=== PATIENT | female | born 1945 | race Caucasian/White ===

== ENCOUNTER 2020-10-06 16:39 | Emergency (ER) | payer MEDICARE, SELFPAY ==
--- NOTE | 2020-10-06 16:44 | ED.SOB ---
HPI - SOB/Dyspnea General Chief Complaint: Upper Respiratory Symptoms Stated Complaint: COPD EXACERBATION Time Seen by Provider: 10/06/20 16:41 Source: patient Mode of arrival: EMS Limitations: no limitations History of Present Illness HPI Narrative: Patient ex-smoker history of COPD was doing okay until yesterday today while walking to the mall fell short winded wheezing Was saturating 96% at room air was given DuoNeb treatment by EMT patient is still feeling tachypneic and short of breath wheezing otherwise no fever no chest pain no leg swelling no exposure to COVID MD elicited complaint: shortness of breath and cough (Dry) Pertinent past history: COPD Onset (ago): minute(s) Context: recent illness Timing: constant Severity: moderate Exacerbating factors: exertion Relieving factors: bronchodilators Known history of: COPD Associated symptoms: denies other symptoms Treatment prior to arrival: bronchodilator Related Data Home oxygen amount: none Previous Rx's Medication Instructions Recorded prednisone 40 mg PO DAILY #10 tab 10/06/20 Allergies Allergy/AdvReac Type Severity Reaction Status Date / Time latex [LATEX] Allergy Unknown RASH Unverified 06/03/20 15:31 Review of Systems Review of Systems: Constitutional : No Weight loss, No Fever, No Chills ENT/Mouth : No sore throat, No Rhinorrhea Eyes: No Eye Pain, No Swelling Cardiovascular : No Chest Pain, no palpitations Respiratory : ++Cough, No Sputum, ++ shortness of breath Gastrointestinal : no Nausea, No Vomiting, No Diarrhea, No abdominal Pain, no black stools Genitourinary : No Dysuria, No Urinary Frequency Musculoskeletal : No joint pain, No Myalgias, No Joint Swelling Skin : No Skin Lesions, No rash Neuro : No Weakness, No Numbness, No Dizziness, No Headache Psych : No Anxiety/Panic, No Depression Heme/Lymph: No Bruising, No Lymphadenopathy Endocrine : No Polyuria, No Polydipsia All other systems reviewed and are negative PMFSH Past Medical History Medical History COPD (chronic obstructive pulmonary disease) Hypercholesteremia Hypertension Social History Social History Smoking Status: Former smoker Smoked in Last 30 Days: No Use of substances other than those prescribed or required for medical reasons: No Advance Directives: No Advance Directives Information Provided: No Physical Exam Vital Signs: Vital Signs: Last Vital Signs Temp 98.3 F 10/06/20 16:48 Pulse 92 10/06/20 18:31 Resp 18 10/06/20 16:48 BP 150/109 H 10/06/20 16:48 Pulse Ox 99 10/06/20 17:18 Body Mass Index 22.8 Appearance: Alert. Oriented X3. No acute distress. Eyes: Pupils equal, round and reactive to light. ENT: Pharynx normal. Neck: Normal inspection. Neck supple. CVS: Normal heart rate and rhythm. Pulses normal. Respiratory: Tachypnea prolonged expiration bilateral wheezing and rhonchi press no rales Abdomen: Soft and nontender. Bowel sounds are present, no mass palpable, no CVA tenderness Skin: Skin warm and dry. Normal skin color. Normal skin turgor. Extremities: No lower extremity edema. Neuro: Oriented X 3. No motor deficit. No sensory deficit. Course Course Course Narrative: Patient felt much better after 4 puffs of albuterol inhaler with spacer and Decadron 10 mg p.o. saturating 96% at room air patient has inhaler at home will discharge patient home on prescription of prednisone and to continue inhaler Discharge Plan Discharge Clinical Impression: Bronchitis Patient Disposition: Home, Self-Care Instructions: Acute Bronchitis (ED) Additional Instructions: Continue her inhaler as advised. Take prednisone tablets as prescribed. Follow with PCP if not better Prescriptions: New prednisone 20 mg tablet 40 mg PO DAILY Qty: 10 RF: 0 Interventions: ED Discharge Assessment Last Done: 10/06/20 18:55 Discharge Date/Time: 10/06/20 18:56
[2020-10-06 16:48] VITALS: BP 150/109; PULSE 96; RESP 18; TEMP 36.8; O2SAT 96; BMI 22.8
[2020-10-06] MEDS: dexAMETHasone 2 MG TABLET 10 MG PO (17:10)
[2020-10-06 17:18] VITALS: O2SAT 99
[2020-10-06] MEDS: Albuterol Sulfate 90 MCG 8 GM INHALER 4 PUFF INHALE (18:29)
[2020-10-06 18:31] VITALS: PULSE 92; O2SAT 100
== END 2020-10-06 18:56 | disposition home or self-care (01) ==
PROVIDERS: Emergency Provider Internal Medicine
DX: J40 Bronchitis, not specified as acute or chronic (principal); Z20.822 Contact with and (suspected) exposure to COVID-19; Z79.899 Other long term (current) drug therapy; Z87.891 Personal history of nicotine dependence
CPT/HCPCS: 11104; 94640; 94664; 99284; J8540

== ENCOUNTER 2021-02-06 08:47 | Emergency (ER) | payer MEDICARE, BC, SELFPAY ==
--- NOTE | ~2021-02-06 | XR_ITS ---
EXAMINATION: XR CHEST CLINICAL INFORMATION: Pneumonia COMPARISON: January 20, 2020 TECHNIQUE: AP portable chest view of the chest was obtained. FINDINGS: There is hyperinflation of the lungs with some diminished vascularity in the upper lobes consistent with COPD. No acute parenchymal disease, pneumothorax, or pleural effusion is appreciated. Bibasilar scarring is present. Arterial vascular calcifications present. XR/XR chest 1V IMPRESSION: COPD without acute parenchymal disease.
[2021-02-06 12:17] VITALS: BP 172/92; PULSE 77; RESP 18; TEMP 36.8; O2SAT 97; BMI 22.8
--- NOTE | 2021-02-06 12:18 | ED.GENADULT ---
HPI - General Adult General Chief complaint: Fever Stated complaint: naueous, flu like symptoms Time Seen by Provider: 02/06/21 11:03 Source: patient Mode of arrival: ambulatory Limitations: no limitations History of Present Illness HPI narrative: PATIENT PRESENTS TO ED FOR VIRAL SYNDROME. STATES YESTERDAY SHE HAD FEVER OF 102.3 WITH NIGHT SWEATS, chills, AND BODY ACHES. PATIENT DENIES ANY ABDOMINAL PAIN, DYSURIA, HEMATURIA, FLANK PAIN, COUGHING, CHEST PAIN, SHORTNESS OF BREATH, THROAT PAIN, sore throat, OR EAR PAIN. PATIENT STATES FEELING NAUSEOUS. Related Data Previous Rx's Medication Instructions Recorded prednisone 40 mg PO DAILY #10 tab 10/06/20 Allergies Allergy/AdvReac Type Severity Reaction Status Date / Time latex [LATEX] Allergy Unknown RASH Unverified 06/03/20 15:31 Review of Systems Review of Systems: Yes all other systems are reviewed and are negative Constitutional: Constitutional: Reports as per HPI, Reports no additional constitutional complaints, Reports body ache(s), Reports chills, Reports fever(s) and Denies snoring Eyes: Eyes: Reports as per HPI and Reports no additional eye complaints ENT: Reports system reviewed and no additional complaints, except as documented and Reports as per HPI Cardiovascular: Cardiovascular: Reports as per HPI, Reports no additional cardiovascular complaints, Denies dyspnea and Denies dyspnea on exertion Respiratory: Respiratory: Reports as per HPI, Reports no additional respiratory complaints, Denies no additional respiratory complaints, Denies change in phlegm color, Denies chest congestion, Denies hemoptysis, Denies excessive phlegm production, Denies pain with cough, Denies dyspnea, Denies dyspnea on exertion, Denies snoring, Denies stridor and Denies wheezing Gastrointestinal: Gastrointestinal: Reports as per HPI, Reports no additional gastrointestinal complaints, Denies abdominal pain, Denies early satiety, Denies dyspepsia, Reports nausea, Denies vomiting and Denies hematemesis Musculoskeletal: Musculoskeletal: Reports no additional musculoskeletal complaints and Reports as per HPI Neurologic: Reports system reviewed and no additional complaints, except as documented and Reports as per HPI Psychiatric: Psychiatric: Reports no additional psychiatric complaints and Reports as per HPI Allergic/Immunologic: Allergic/Immunologic: Denies wheezing PMFSH Past Medical History Medical History (Updated 02/06/21 @ 15:06 by CORNELIO Andino) Asthma COPD (chronic obstructive pulmonary disease) Hypercholesteremia Hypertension Thyroid activity decreased Social History Social History Alcohol intake: current Alcohol intake frequency: 0-2 drinks per day Smoking Status: Former smoker Use of substances other than those prescribed or required for medical reasons: No Advance Directives: Yes Advance Directives Information Provided: Yes Advance Directives on File: No Physical Exam Vital Signs: Vital Signs: Last Vital Signs Temp 98.7 F 02/06/21 15:48 Pulse 85 02/06/21 15:48 Resp 18 02/06/21 15:48 BP 168/90 H 02/06/21 15:48 Pulse Ox 98 02/06/21 15:48 Body Mass Index 22.8 Const: General: cooperative, healthy appearing, comfortable, no acute distress, well developed, alert, awake and Physically active Orientation/consciousness: patient oriented x3 HENMT: Head: Yes normal to inspection, Yes No palpable skull fracture present, Yes normocephalic, Yes atraumatic and No abrasion Ears: hearing grossly normal bilaterally, external ears normal and TM's normal bilaterally Throat: Yes posterior oropharynx normal, Yes tonsils normal and Yes uvula midline Eyes: General: appearance normal, both eyes and all related structures Neck: Neck: Yes normal visual inspection, Yes full ROM, Yes no lymphadenopathy, Yes no meningeal signs, Yes trachea midline, Yes supple and No tender Chest: Chest palpation & inspection: normal inspection of the chest and normal palpation of entire chest wall Breast/axilla inspection: normal inspection of the breasts Resp: Effort & Inspection: normal respiratory effort and able to speak in complete sentences Auscultation: clear to auscultation bilaterally Cardio: Jugular venous distension: no JVD Heart sounds: S1 normal heart sound present and S2 normal heart sound present GI: Inspection: Yes normal to inspection and No abdominal wall ecchymosis Palpation (GI): Soft to palpation, not firm, nontender, no guarding and not rigid : General: No CVA tenderness and Yes no CVA tenderness Back/Spine/Pelvis: Back: no CVA tenderness, No CVA tenderness and No back tenderness Skin: General skin exam: no rashes or lesions noted and elasticity normal Neuro: General: patient oriented x3, no meningeal signs and CN's II-XI intact bilaterally Cranial nerves: Yes CN's II-XII intact bilaterally Extrem: General: Yes normal to inspection and Yes full ROM Psych: Appearance: grossly normal, well kempt and not disheveled Course Course Course Narrative: PATIENT WILL HAVE LABS, UA, CHEST X-RAY, COVID SWAB SENT. Reevaluation(s) Reevaluation #1: Negative for white blood cell count. Chest x-ray negative for pneumonia. UA negative for UTI. Patient is not in any distress. Patient is comfortable. Patient is slightly hypertensive. Patient admits not taking hypertensive medicine yesterday. Patient is not having any stroke symptoms. COVID swab negative. Not suspecting meningitis. Reevaluation #2: COVID swab negative. Patient is safe for discharge Medical Decision Making MDM Narrative Medical decision making narrative: Viral syndrome Lab Data Result diagrams: 02/06/21 13:02/06/21 13:01 Labs: Lab Results 02/06/21 02/06/21 02/06/21 Range/Units 13: 13: 13:01 WBC 8.4 (4.8-10.8) X10*3/uL RBC 4.60 (4.20-5.50) X10*6/uL Hgb 14.3 (12.0-16.0) g/dl Hct 43.2 (37-47) % MCV 93.9 (80-98) fL MCH 31.1 (27.0-33.0) pg MCHC 33.1 (31.0-35.0) g/dl RDW 13.4 (11.0-16.0) % Plt Count 208 (160-400) X10*3/uL MPV 9.7 (9.4-12.3) fL Immature Gran % (Auto) 0.2 (0.0-0.4) % Neut % (Auto) 63.6 (45-73) % Lymph % (Auto) 25.5 (20-40) % [place] % (Auto) 7.0 (2-11) % Eos % (Auto) 3.5 (0-4) % Baso % (Auto) 0.2 (0-2) % Lymph # (Auto) 2.1 (1.2-4.9) X10*3/uL [place] # (Auto) 0.6 (0.1-1.2) X10*3/uL Eos # (Auto) 0.3 (0.0-0.4) X10*3/uL Baso # (Auto) 0.0 (0.0-0.2) X10*3/uL Abs Immat Gran (auto) 0.02 (0.00-0.03) X10*3/uL Absolute Neuts (auto) 5.3 (2.0-8.3) X10*3/uL Absolute Nucleated RBC 0.000 (0.0-0.012) X10*3/uL Nucleated RBC % (auto) 0.0 (0.0-0.2) /100WBC PT 12.4 (10.8-13.0) SEC INR 1.0 (0.9-1.1) APTT 40.2 H (24.1-38.0) SEC Sodium (135-145) mmol/L Potassium (3.3-5.1) mmol/L Chloride (96-108) mmol/L Carbon Dioxide (22-29) mmol/L Anion Gap (12-20) BUN (9-16) mg/dL Creatinine (0.5-1.4) mg/dL Estim Creat Clear Calc Estimated GFR Random Glucose (60-115) mg/dL Calcium (8.4-10.2) mg/dL Ferritin (10-250) ng/mL Total Bilirubin (0.0-1.0) mg/dL Direct Bilirubin (0.0-0.5) mg/dL AST (5-31) U/L ALT (0-31) U/L Alkaline Phosphatase (39-117) U/L Lactate Dehydrogenase (122-220) U/L Total Protein (6.5-8.0) g/dL Albumin (3.5-5.0) g/dL Lipase (8-78) U/L Procalcitonin ng/mL Urine Color Urine Appearance Urine pH (5.0-8.0) Ur Specific [place] (1.005-1.025) Urine Protein (NEG-TRACE) MG/DL Urine Glucose (UA) (NEG) MG/DL Urine Ketones (NEG) MG/DL Urine Blood (NEG) Urine Nitrite (NEG) Ur Leukocyte Esterase (NEG) Coronavirus (PCR) NEGATIVE (Negative) Influenza Type A (PCR) NEGATIVE (Negative) Influenza Type B (PCR) NEGATIVE (Negative) RSV RNA Qual (PCR) NEGATIVE (Negative) 02/06/21 02/06/21 02/06/21 Range/Units 13:01 13:01 13:01 WBC (4.8-10.8) X10*3/uL RBC (4.20-5.50) X10*6/uL Hgb (12.0-16.0) g/dl Hct (37-47) % MCV (80-98) fL MCH (27.0-33.0) pg MCHC (31.0-35.0) g/dl RDW (11.0-16.0) % Plt Count (160-400) X10*3/uL MPV (9.4-12.3) fL Immature Gran % (Auto) (0.0-0.4) % Neut % (Auto) (45-73) % Lymph % (Auto) (20-40) % [place] % (Auto) (2-11) % Eos % (Auto) (0-4) % Baso % (Auto) (0-2) % Lymph # (Auto) (1.2-4.9) X10*3/uL [place] # (Auto) (0.1-1.2) X10*3/uL Eos # (Auto) (0.0-0.4) X10*3/uL Baso # (Auto) (0.0-0.2) X10*3/uL Abs Immat Gran (auto) (0.00-0.03) X10*3/uL Absolute Neuts (auto) (2.0-8.3) X10*3/uL Absolute Nucleated RBC (0.0-0.012) X10*3/uL Nucleated RBC % (auto) (0.0-0.2) /100WBC PT (10.8-13.0) SEC INR (0.9-1.1) APTT (24.1-38.0) SEC Sodium 138 (135-145) mmol/L Potassium 3.6 (3.3-5.1) mmol/L Chloride 100 (96-108) mmol/L Carbon Dioxide 30 H (22-29) mmol/L Anion Gap 12 (12-20) BUN 14 (9-16) mg/dL Creatinine 0.82 (0.5-1.4) mg/dL Estim Creat Clear Calc 46.2 Estimated GFR > 60 Random Glucose 95 (60-115) mg/dL Calcium 9.6 (8.4-10.2) mg/dL Ferritin 142 (10-250) ng/mL Total Bilirubin 1.8 H (0.0-1.0) mg/dL Direct Bilirubin 0.7 H (0.0-0.5) mg/dL AST 23 (5-31) U/L ALT 21 (0-31) U/L Alkaline Phosphatase 109 (39-117) U/L Lactate Dehydrogenase 197 (122-220) U/L Total Protein 6.6 (6.5-8.0) g/dL Albumin 4.1 (3.5-5.0) g/dL Lipase 13 (8-78) U/L Procalcitonin 0.02 ng/mL Urine Color YELLOW Urine Appearance CLEAR Urine pH 6.0 (5.0-8.0) Ur Specific [place] 1.010 (1.005-1.025) Urine Protein NEG (NEG-TRACE) MG/DL Urine Glucose (UA) NEG (NEG) MG/DL Urine Ketones 5 (NEG) MG/DL Urine Blood NEG (NEG) Urine Nitrite NEG (NEG) Ur Leukocyte Esterase NEG (NEG) Coronavirus (PCR) (Negative) Influenza Type A (PCR) (Negative) Influenza Type B (PCR) (Negative) RSV RNA Qual (PCR) (Negative) Discharge Plan Discharge Clinical Impression: Acute viral syndrome Patient Disposition: Home, Self-Care Instructions: Viral Syndrome (ED) Additional Instructions: Return to the ED immediately for any chest pain, shortness of breath, headache, dizziness, neck stiffness, photophobia, night sweats, abdominal pain, dysuria, hematuria, or any other concerning symptoms. Prescriptions: No Action prednisone 20 mg tablet 40 mg PO DAILY Qty: 10 RF: 0 Referrals: Miko Marshall MD [Primary Care Provider] - 2 days (Viral syndrome. Chest x-ray negative for pneumonia. COVID swab negative. UA negative for UTI. Blood work came back normal. Negative for elevated white blood cell count. Liver enzymes normal. Kidney function normal) Interventions: ED Discharge Assessment Last Done: 02/06/21 15:49 Discharge Date/Time: 02/06/21 15:52 Print Language: Ukrainian
[2021-02-06 12:52] VITALS: BP 162/102; PULSE 80; RESP 18; O2SAT 97
[2021-02-06] MEDS: 0.9 % Sodium Chloride 1,000 ML 999 ML IV (13:02)
[2021-02-06 13:11] LABS: MANUAL DIFF FLAG NO
[2021-02-06 13:12] LABS: Glucose Urine UA NEG (NEG); Leukocyte Esterase Urine NEG (NEG); Nitrite Urine NEG (NEG); Urine Blood NEG (NEG); Urine Ketones 5 MG/DL (NEG); Urine Protein NEG (NEG-TRACE)
[2021-02-06 13:13] LABS: Basophils Percent Auto 0.2 % (0-2); Color Urine YELLOW; Eosinophils Absolute Auto 0.3 X10*3/uL (0.0-0.4); Eosinophils Percent Auto 3.5 % (0-4); Hematocrit 43.2 % (37-47); Hemoglobin 14.3 g/dl (12.0-16.0); Imm Gran Abs Auto 0.02 X10*3/uL (0.00-0.03); Imm Gran Pct Auto 0.2 % (0.0-0.4); Lymphocytes Absolute Auto 2.1 X10*3/uL (1.2-4.9); Lymphocytes Percent Auto 25.5 % (20-40); Mean Corpuscular HGB Conc 33.1 g/dl (31.0-35.0); Mean Corpuscular Hemoglobin 31.1 pg (27.0-33.0); Mean Corpuscular Volume 93.9 fL (80-98); Mean Platelet Volume 9.7 fL (9.4-12.3); Monocytes Absolute Auto 0.6 X10*3/uL (0.1-1.2); Neutrophils Absolute Auto 5.3 X10*3/uL (2.0-8.3); Neutrophils Percent Auto 63.6 % (45-73); Platelet Count 208 X10*3/uL (160-400); Red Cell Distribution Width 13.4 % (11.0-16.0); White Blood Count 8.4 X10*3/uL (4.8-10.8)
[2021-02-06 13:14] LABS: Appearance Urine CLEAR
[2021-02-06 13:19] LABS: Prothrombin Time 12.4 SEC (10.8-13.0)
[2021-02-06 13:37] LABS: Alanine Aminotransferase 21 U/L (0-31); Albumin Level 4.1 g/dL (3.5-5.0); Alkaline Phosphatase 109 U/L (39-117); Anion Gap 12 (12-20); Aspartate Amino Transferase 23 U/L (5-31); Bilirubin Direct 0.7 mg/dL (0.0-0.5); Bilirubin Total 1.8 mg/dL (0.0-1.0); Blood Urea Nitrogen 14 mg/dL (9-16); Calcium 9.6 mg/dL (8.4-10.2); Carbon Dioxide 30 mmol/L (22-29); Chloride 100 mmol/L (96-108); Creatinine Clr Calc Pharmacy 46.2; Estimated Glomerular Filt Rate > 60; Glucose Random 95 mg/dL (60-115); Lactate Dehydrogenase 197 U/L (122-220); Lipase 13 U/L (8-78); Potassium 3.6 mmol/L (3.3-5.1); Sodium 138 mmol/L (135-145); Total Protein 6.6 g/dL (6.5-8.0)
[2021-02-06 13:41] LABS: Partial Thromboplastin Time 40.2 SEC (24.1-38.0)
[2021-02-06 13:52] LABS: Procalcitonin 0.02 ng/mL
[2021-02-06 13:57] LABS: Ferritin 142 ng/mL (10-250)
[2021-02-06 14:00] VITALS: BP 166/92; PULSE 89; RESP 18; TEMP 36.9; O2SAT 96
[2021-02-06 14:41] LABS: Influenza A PCR NEGATIVE (Negative); Influenza B PCR NEGATIVE (Negative); Resp Syncy Virus RNA Qual PCR NEGATIVE (Negative); SARS COV2 PCR INHOUSE NEGATIVE (Negative)
[2021-02-06 15:48] VITALS: BP 168/90; PULSE 85; RESP 18; TEMP 37.1; O2SAT 98
== END 2021-02-06 15:52 | disposition home or self-care (01) ==
PROVIDERS: Physician Assistant; Emergency Provider Emergency Medicine; PCP Internal Medicine
DX: B34.9 Viral infection, unspecified (principal); R50.9 Fever, unspecified; Z87.891 Personal history of nicotine dependence; Z20.822 Contact with and (suspected) exposure to COVID-19
CPT/HCPCS: 0241U; 36415; 71045; 80053; 80076; 81003; 82248; 82728; 83615; 83690; 84145; 85025; 85610; 85730; 99284

== ENCOUNTER 2021-12-06 00:08 | Emergency (ER) | payer MEDICARE, BC, SELFPAY ==
[2021-12-06 00:15] VITALS: BP 167/97; PULSE 96; O2SAT 96
[2021-12-06 00:22] VITALS: BP 146/92; PULSE 100; RESP 18; TEMP 35.8; O2SAT 94; BMI 21.0
[2021-12-06 00:37] LABS: Basophils Percent Auto 0.3 % (0-2); Eosinophils Absolute Auto 0.2 X10*3/uL (0.0-0.4); Eosinophils Percent Auto 2.2 % (0-4); Hemoglobin 15.6 g/dl (12.0-16.0); Imm Gran Abs Auto 0.03 X10*3/uL (0.00-0.03); Imm Gran Pct Auto 0.3 % (0.0-0.4); Lymphocytes Absolute Auto 1.3 X10*3/uL (1.2-4.9); Lymphocytes Percent Auto 11.9 % (20-40); MANUAL DIFF FLAG NO; Mean Corpuscular HGB Conc 33.2 g/dl (31.0-35.0); Mean Corpuscular Volume 90.4 fL (80.0-98.0); Mean Platelet Volume 9.6 fL (9.4-12.3); Monocytes Absolute Auto 0.5 X10*3/uL (0.1-1.2); Monocytes Percent Auto 4.2 % (2-11); Neutrophils Absolute Auto 8.9 x10*3/uL (2.0-8.3); Neutrophils Percent Auto 81.1 % (45-73); Platelet Count 266 X10*3/uL (160-400); Red Cell Distribution Width 14.3 % (11.0-16.0); White Blood Count 10.9 X10*3/uL (4.8-10.8)
[2021-12-06 00:56] LABS: COVID-19 Test Negative (Negative)
[2021-12-06 01:08] LABS: Alanine Aminotransferase 32 U/L (0-31); Albumin Level 4.6 g/dL (3.5-5.0); Alkaline Phosphatase 104 U/L (39-117); Anion Gap 17 (12-20); Aspartate Amino Transferase 36 U/L (5-31); Bilirubin Direct 0.4 mg/dL (0.0-0.5); Bilirubin Total 1.1 mg/dL (0.0-1.0); Blood Urea Nitrogen 20 mg/dL (9-16); Calcium 10.4 mg/dL (8.4-10.2); Carbon Dioxide 25 mmol/L (22-29); Chloride 102 mmol/L (96-108); Creatinine Clr Calc Pharmacy 36.9; Estimated Glomerular Filt Rate 53; Glucose Random 131 mg/dL (60-115); Lipase 36 U/L (8-78); Potassium 3.6 mmol/L (3.3-5.1); Sodium 140 mmol/L (135-145); Total Protein 7.6 g/dL (6.5-8.0)
[2021-12-06 05:41] VITALS: BP 143/81; PULSE 90; RESP 16; TEMP 36.8; O2SAT 95
--- NOTE | 2021-12-06 05:56 | ED_ITS ---
HPI - Nausea/Vomiting/Diarrhea General Chief complaint: Nausea/Vomiting/Diarrhea Stated complaint: N/V/D Time Seen by Provider: 12/06/21 05:56 Source: patient Mode of arrival: EMS History of Present Illness HPI Narrative: 76-year-old female with history of COPD states that she ate kielbasa and horseradish sauce and then developed acute onset of nausea, vomiting, diarrhea simultaneously that resulted in multiple episodes of vomiting as well as diarrhea and prompted patient to call EMS. Otherwise, patient denies any fever, chills, urinary symptoms, abdominal pain, shortness of breath, chest pain/palpitations. Related Data Previous Rx's Medication Instructions Recorded prednisone 20 mg tablet 40 mg PO DAILY #10 tab 10/06/20 ondansetron 4 mg disintegrating 4 mg PO Q6H PRN #10 tab 12/06/21 tablet Allergies Allergy/AdvReac Type Severity Reaction Status Date / Time latex [LATEX] Allergy Unknown RASH Unverified 06/03/20 15:31 Review of Systems Review of Systems: Pertinent positives and negatives as stated in HPI 10 point review of systems is otherwise negative. PMFSH Past Medical History Source: nursing notes reviewed Medical History Asthma COPD (chronic obstructive pulmonary disease) Hypercholesteremia Hypertension Thyroid activity decreased Social History Social History Alcohol intake: current Alcohol intake frequency: 0-2 drinks per day Advance Directives: No Advance Directives Information Provided: Yes Physical Exam Vital Signs: Vital Signs: Last Vital Signs Temp 98.2 F 12/06/21 05:41 Pulse 90 12/06/21 05:41 Resp 18 12/06/21 06:12 BP 143/81 H 12/06/21 05:41 Pulse Ox 95 12/06/21 06:12 BMI result Body Mass Index 21.0 VITAL SIGNS: Reviewed. GENERAL: Well developed, well nourished, in no acute distress. HEAD: Normocephalic/atraumatic EYES: PERRLA, EOMI OROPHARYNX: no oral lesions noted, posterior pharynx clear LUNGS: Normal breath sounds. No adventitious sounds or accessory muscle use. S pO2<95> CARDIOVASCULAR: Regular rate and rhythm without noted murmurs, no JVD or lower extremity edema. ABDOMEN: Soft, non-tender, non-distended with bowel sounds. SKIN: Inspection of the skin reveals no rashes NEUROLOGIC: Alert and oriented x 4. Strength and sensation to light touch were grossly intact x 4. Course Course Course Narrative: 76-year-old female with history and clinical presentation most consistent with food poisoning. Patient has had no further vomiting episodes after receiving Zofran in the ambulance and on review of all investigations although there is evidence of mild dehydration she is able to tolerate oral intake. In addition, suspect that remaining lab values are reflective stress response. She is otherwise discharged home in stable condition with instructions to follow-up with her primary care provider. Patient is successfully tolerating oral intake and states she is feeling much better. MDM - Nausea/Vomiting/Diarrhea Lab Data Result diagrams: 12/06/21 00:30 12/06/21 00:30 Labs: Lab Results 12/06/21 12/06/21 12/06/21 Range/Units 00:30 00:30 00:30 WBC 10.9 H (4.8-10.8) X10*3/uL RBC 5.20 (4.20-5.50) X10*6/uL Hgb 15.6 (12.0-16.0) g/dl Hct 47.0 (37.0-47.0) % MCV 90.4 (80.0-98.0) fL MCH 30.0 (27.0-33.0) pg MCHC 33.2 (31.0-35.0) g/dl RDW 14.3 (11.0-16.0) % Plt Count 266 (160-400) X10*3/uL MPV 9.6 (9.4-12.3) fL Immature Gran % (Auto) 0.3 (0.0-0.4) % Neut % (Auto) 81.1 H (45-73) % Lymph % (Auto) 11.9 L (20-40) % [place] % (Auto) 4.2 (2-11) % Eos % (Auto) 2.2 (0-4) % Baso % (Auto) 0.3 (0-2) % Lymph # (Auto) 1.3 (1.2-4.9) X10*3/uL [place] # (Auto) 0.5 (0.1-1.2) X10*3/uL Eos # (Auto) 0.2 (0.0-0.4) X10*3/uL Baso # (Auto) 0.0 (0.0-0.2) X10*3/uL Abs Immat Gran (auto) 0.03 (0.00-0.03) X10*3/uL Absolute Neuts (auto) 8.9 H (2.0-8.3) x10*3/uL Absolute Nucleated RBC 0.000 (0.0-0.012) X10*3/uL Nucleated RBC % (auto) 0.0 (0.0-0.2) /100WBC Sodium 140 (135-145) mmol/L Potassium 3.6 (3.3-5.1) mmol/L Chloride 102 (96-108) mmol/L Carbon Dioxide 25 (22-29) mmol/L Anion Gap 17 (12-20) BUN 20 H (9-16) mg/dL Creatinine 1.01 (0.5-1.4) mg/dL Estim Creat Clear Calc 36.9 Estimated GFR 53 Random Glucose 131 H (60-115) mg/dL Calcium 10.4 H D (8.4-10.2) mg/dL Total Bilirubin 1.1 H (0.0-1.0) mg/dL Direct Bilirubin 0.4 (0.0-0.5) mg/dL AST 36 H D (5-31) U/L ALT 32 H (0-31) U/L Alkaline Phosphatase 104 (39-117) U/L Total Protein 7.6 (6.5-8.0) g/dL Albumin 4.6 (3.5-5.0) g/dL Lipase 36 (8-78) U/L COVID-19 ([facility]) Negative (Negative) COVID-19 Clin Com See Note Discharge Plan Discharge Clinical Impression: Food poisoning Patient Disposition: Home, Self-Care Instructions: Food Poisoning (ED), Nutrition Tips for Relief of Diarrhea (ED) Additional Instructions: 1. Resume all home medications as prescribed. 2. You have been provided with a prescription for antinausea medication should use this as prescribed. 3. Increase fluid hydration over the next 2-3 days. 4. Follow-up with primary care provider for re-evaluation. Return to the ER for worsening symptoms. Prescriptions: New ondansetron 4 mg tablet,disintegrating 4 mg PO Q6H PRN (Reason: nausea and vomiting) Qty: 10 0RF No Action prednisone 20 mg tablet 40 mg PO DAILY Qty: 10 0RF Interventions: CODYBS Worksheet Last Done: 12/06/21 04:28
[2021-12-06 06:12] VITALS: RESP 18; O2SAT 95
== END 2021-12-06 06:36 | disposition home or self-care (01) ==
PROVIDERS: Emergency Provider Student in an Organized Health Care Education/Training Program
DX: A05.9 Bacterial foodborne intoxication, unspecified (principal); Z20.822 Contact with and (suspected) exposure to COVID-19; R11.2 Nausea with vomiting, unspecified; I10 Essential (primary) hypertension; E78.5 Hyperlipidemia, unspecified
CPT/HCPCS: 36415; 80048; 80076; 83690; 85025; 87635; 99283

== ENCOUNTER 2022-10-10 13:32 | Emergency (ER) | payer MEDICARE, BC, SELFPAY ==
--- NOTE | ~2022-10-10 | XR_ITS ---
EXAMINATION: XR CHEST CLINICAL INFORMATION: Pneumonia COMPARISON: 02/06/2021 TECHNIQUE: Frontal view of the chest was obtained. FINDINGS: Lungs are again noted to be hyperinflated. Aorta tortuous and calcified. No infiltrates, effusions or lung masses are seen. XR/XR chest 1V IMPRESSION: COPD. No acute intrathoracic disease.
--- NOTE | 2022-10-10 13:36 | ECG_ITS ---
Test Reason : CHEST PAIN Blood Pressure : / mmHG Vent. Rate : 082 BPM Atrial Rate : 082 BPM P-R Int : 188 ms QRS Dur : 080 ms QT Int : 356 ms P-R-T Axes : 062 052 066 degrees QTc Int : 415 ms Normal sinus rhythm Normal ECG When compared with ECG of 20-JAN-2020 04:51, No significant change was found Referred By: Generic ED Physician Electronically Signed By:KAVITHA CATHERINE
[2022-10-10 13:44] VITALS: BP 177/104; PULSE 86; RESP 18; TEMP 36.6; O2SAT 96; BMI 30.2
--- NOTE | 2022-10-10 13:47 | ED_ITS ---
HPI - SOB/Dyspnea General Chief Complaint: Dyspnea <CORNELIO Stevens - Last Filed: 10/10/22 13:51> Stated Complaint: Chest pain/SOB/Sore throat <CORNELIO Stevens - Last Filed: 10/10/22 13:51> Time Seen by Provider: 10/10/22 17:18 <CORNELIO Stevens - Last Filed: 10/10/22 13:51> Source: patient <Chrystal Whitfield MD - Last Filed: 10/10/22 20:28> Mode of arrival: ambulatory <Chrystal Whitfield MD - Last Filed: 10/10/22 20:28> Limitations: no limitations <Chrystal Whitfield MD - Last Filed: 10/10/22 20:28> History of Present Illness HPI Narrative: Patient comes to the emergency room complaining of cough for 4 days. Patient states that she is known to have COPD and asthma. Patient has been coughing a lot more than usual. No fever. Patient states that earlier today she had an asthma exacerbation, use her rescue inhaler which worked. However shortly after she had a choking episode, call 911. By the time that the ambulance arrived, patient declined transport and agreed to come to the hospital with her own vehicle. <Chrystal Whitfield MD - Last Filed: 10/10/22 20:28> Related Data Home Medications: Previous Rx's Medication Instructions Recorded prednisone 20 mg tablet 40 mg PO DAILY #10 tabs 10/06/20 ondansetron 4 mg disintegrating 4 mg PO Q6H PRN nausea and 12/06/21 tablet vomiting #10 tabs benzonatate 100 mg capsule 100 mg PO TID PRN cough #10 caps 10/10/22 fluticasone propionate 50 1 spray intranasal DAILY #16 grams 10/10/22 mcg/actuation nasal spray,suspension (Flonase Allergy Relief) prednisone 50 mg tablet 50 mg PO DAILY #4 tabs 10/10/22 <CORNELIO Stevens - Last Filed: 10/10/22 13:51> Allergies/Adverse Reactions: Allergies Allergy/AdvReac Type Severity Reaction Status Date / Time latex [LATEX] Allergy Unknown RASH Verified 10/10/22 13:51 <CORNELIO Stevens - Last Filed: 10/10/22 13:51> Review of Systems Review of Systems: Constitutional : No Weight loss, No Fever, No Chills, No Night Sweats, No Fatigue, No Malaise ENT/Mouth : No Hearing loss, No Ear Pain, No Nasal Congestion, No Sinus Pain, No Hoarseness, No sore throat, No Rhinorrhea, No Swallowing Difficulty Eyes: No Eye Pain, No Swelling, No Redness, No Foreign Body, No Discharge, No Vision Changes Cardiovascular : No Chest Pain, No SOB, No Dyspnea on Exertion, No Orthopnea, No Edema, No Palpitations Respiratory : Complaining of cough, wheezing Gastrointestinal : No Nausea, No Vomiting, No Diarrhea, No Constipation, No abdominal Pain, No Hematochezia, No Melena Genitourinary : no irregular bleeding, No Dysuria, No Urinary Frequency, No Hematuria, No Urinary Incontinence, No Urgency, No Flank Pain, No Urinary Flow Changes, No Hesitancy Musculoskeletal : No joint pain, No Myalgias, No Joint Swelling Skin : No Skin Lesions, No rash Neuro : No Weakness, No Numbness, No Paresthesias, No Loss of Consciousness, No Dizziness, No Headache Psych : No Anxiety/Panic, No Depression, No SI/HI/AH/VH, No Social Issues, Heme/Lymph: No Bruising, No Bleeding,No Lymphadenopathy Endocrine : No Polyuria, No Polydipsia, No Temperature Intolerance <Chrystal Whitfield MD - Last Filed: 10/10/22 20:28> [facility] Past Medical History Medical History: Medical History Asthma COPD (chronic obstructive pulmonary disease) Hypercholesteremia Hypertension Thyroid activity decreased <CORNELIO Stevens - Last Filed: 10/10/22 13:51> Social History Social History: Social History Alcohol intake: current Alcohol intake frequency: does not drink Smoked in Last 30 Days: No Use of substances other than those prescribed or required for medical reasons: No Advance Directives: No Advance Directives Information Provided: Yes <CORNELIO Stevens - Last Filed: 10/10/22 13:51> Physical Exam Vital Signs: Vital Signs: Last Vital Signs Temp 99.2 F 10/10/22 18:11 Pulse 81 10/10/22 18:11 Resp 20 10/10/22 18:11 BP 158/90 H 10/10/22 18:11 Pulse Ox 95 10/10/22 18:11 O2 Del Method 10/10/22 18:11 BMI result Body Mass Index 30.2 <CORNELIO Stevens - Last Filed: 10/10/22 13:51> Vital Signs: Last Vital Signs Temp 99.2 F 10/10/22 18:11 Pulse 81 10/10/22 18:11 Resp 20 10/10/22 18:11 BP 158/90 H 10/10/22 18:11 Pulse Ox 95 10/10/22 18:11 O2 Del Method 10/10/22 18:11 BMI result Body Mass Index 30.2 <Chrystal Whitfield MD - Last Filed: 10/10/22 20:28> Const: Other: Appearance: Alert. Oriented X3. No acute distress. Eyes: Pupils equal, round and reactive to light. ENT: Pharynx normal. Neck: Normal inspection. Neck supple. No lymph nodes noted. No crepitus CVS: Normal heart rate and rhythm. Pulses normal. Normal S1 and S2 Respiratory: No respiratory distress. Breath sounds normal. No Wheezing. No rales , speaking in full sentences, oxygen saturation 96% on room air, occasionally coughs Abdomen: Soft and nontender. No rigidity. No distention. Skin: Skin warm and dry. Normal skin color. Normal skin turgor. Extremities: No lower extremity edema. No Lacerations. No Rash Neuro: Oriented X 3. No motor deficit. No sensory deficit. Moving all extrem ities. No slurred speech. CN 2 through 12 grossly intact Psych: calm, cooperative, normal affect <Chrystal Whitfield MD - Last Filed: 10/10/22 20:28> Course Course Course Narrative: RME - 77 yo female, former smoker with history of COPD, HTN, GERD, HLD, thyroid problem who presents to the ER with worsening productive cough, SOB and cold symptoms since 10/06. Reports a mild chest pains mostly associated with coughing. Called 911 today because she was having a coughing fit and was choking on her phelgm. Ended up driving herself because she wanted her own car. Coarse LS bilaterally without over wheezing, bronchospasm noted in triage. SpO2 96%, speaking in complete sentences. CXR, labs, EKG and viral swabs ordered. <CORNELIO Stevens - Last Filed: 10/10/22 13:51> Medications Administered Discontinued Medications Generic Name Dose Route Start Last Admin Trade Name Freq PRN Reason Stop Dose Admin Benzonatate 100 mg 10/10/22 17:33 10/10/22 18:15 Benzonatate 100 Mg Capsule PO 10/10/22 17:34 100 mg ONCE ONE Administration Prednisone 60 mg 10/10/22 17:33 10/10/22 18:15 Prednisone 20 Mg Tablet PO 10/10/22 17:34 60 mg ONCE ONE Administration <CORNELIO Stevens - Last Filed: 10/10/22 13:51> Medications Administered Discontinued Medications Generic Name Dose Route Start Last Admin Trade Name Freq PRN Reason Stop Dose Admin Benzonatate 100 mg 10/10/22 17:33 10/10/22 18:15 Benzonatate 100 Mg Capsule PO 10/10/22 17:34 100 mg ONCE ONE Administration Prednisone 60 mg 10/10/22 17:33 10/10/22 18:15 Prednisone 20 Mg Tablet PO 10/10/22 17:34 60 mg ONCE ONE Administration <Chrystal Whitfield MD - Last Filed: 10/10/22 20:28> Medical Decision Making Medical Decision Making MDM Narrative: -patient blood cell count within normal limits, no fever chills, sepsis not suspected. This is likely an asthma exacerbation -BMP within normal limits. Troponin 26.9, no previous troponin for comparison. EKG shows no significant acute abnormalities. Slight ST elevation in V1, no chest pain, no reciprocal changes. -troponin 2. Will be obtained at 19:15 -respiratory miranda, patient stable, not wheezing, saturating 96% on room air. Patient ambulating to the bathroom by herself without any shortness of breath or chest pain or oxygen desaturations -patient informed that she tested positive for RSV. 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 Flat troponins Patient ready for discharge. <Chrystal Whitfield MD - Last Filed: 10/10/22 20:28> Lab Data Result Diagrams: 10/10/22 16:14 10/10/22 16:14 <CORNELIO Stevens - Last Filed: 10/10/22 13:51> Labs: Lab Results 10/10/22 10/10/22 10/10/22 Range/Units 16:14 16:14 16:14 WBC 7.8 (4.8-10.8) X10*3/uL RBC 4.95 (4.20-5.50) X10*6/uL Hgb 15.1 (12.0-16.0) g/dl Hct 44.7 (37.0-47.0) % MCV 90.3 (80.0-98.0) fL MCH 30.5 (27.0-33.0) pg MCHC 33.8 (31.0-35.0) g/dl RDW 13.6 (11.0-16.0) % Plt Count 209 (160-400) X10*3/uL MPV 9.5 (9.4-12.3) fL Immature Gran % (Auto) 0.4 (0.0-0.4) % Neut % (Auto) 76.6 H (45-73) % Lymph % (Auto) 14.5 L (20-40) % Garden % (Auto) 6.8 (2-11) % Eos % (Auto) 1.4 (0-4) % Baso % (Auto) 0.3 (0-2) % Lymph # (Auto) 1.1 L (1.2-4.9) X10*3/uL Garden # (Auto) 0.5 (0.1-1.2) X10*3/uL Eos # (Auto) 0.1 (0.0-0.4) X10*3/uL Baso # (Auto) 0.0 (0.0-0.2) X10*3/uL Abs Immat Gran (auto) 0.03 (0.00-0.03) X10*3/uL Absolute Neuts (auto) 6.0 (2.0-8.3) x10*3/uL Absolute Nucleated RBC 0.000 (0.0-0.012) X10*3/uL Nucleated RBC % (auto) 0.0 (0.0-0.2) /100WBC Sodium 135 (135-145) mmol/L Potassium 3.8 (3.3-5.1) mmol/L Chloride 95 L (96-108) mmol/L Carbon Dioxide 31 H (22-29) mmol/L Anion Gap 13 (12-20) BUN 15 (9-16) mg/dL Creatinine 1.01 (0.5-1.4) mg/dL Estim Creat Clear Calc 41.8 Estimated GFR 53 Random Glucose 175 H (60-115) mg/dL Calcium 9.8 (8.4-10.2) mg/dL Magnesium 1.8 (1.6-2.6) mg/dL Total Bilirubin 0.6 (0.0-1.0) mg/dL Direct Bilirubin 0.2 (0.0-0.5) mg/dL AST 24 (5-31) U/L ALT 16 (0-31) U/L Alkaline Phosphatase 122 H (39-117) U/L Troponin I High Sens 26.9 H (<3.5-17.0) ng/L B-Natriuretic Peptide (<100) pg/mL Total Protein 7.1 (6.5-8.0) g/dL Albumin 4.3 (3.5-5.0) g/dL Influenza Type A (PCR) (Negative) Influenza Type B (PCR) (Negative) RSV RNA Qual (PCR) (Negative) SARS-CoV-2 RNA (RT-PCR) (Negative) 10/10/22 10/10/22 10/10/22 Range/Units 16:14 16:15 19:54 WBC (4.8-10.8) X10*3/uL RBC (4.20-5.50) X10*6/uL Hgb (12.0-16.0) g/dl Hct (37.0-47.0) % MCV (80.0-98.0) fL MCH (27.0-33.0) pg MCHC (31.0-35.0) g/dl RDW (11.0-16.0) % Plt Count (160-400) X10*3/uL MPV (9.4-12.3) fL Immature Gran % (Auto) (0.0-0.4) % Neut % (Auto) (45-73) % Lymph % (Auto) (20-40) % Garden % (Auto) (2-11) % Eos % (Auto) (0-4) % Baso % (Auto) (0-2) % Lymph # (Auto) (1.2-4.9) X10*3/uL Garden # (Auto) (0.1-1.2) X10*3/uL Eos # (Auto) (0.0-0.4) X10*3/uL Baso # (Auto) (0.0-0.2) X10*3/uL Abs Immat Gran (auto) (0.00-0.03) X10*3/uL Absolute Neuts (auto) (2.0-8.3) x10*3/uL Absolute Nucleated RBC (0.0-0.012) X10*3/uL Nucleated RBC % (auto) (0.0-0.2) /100WBC Sodium (135-145) mmol/L Potassium (3.3-5.1) mmol/L Chloride (96-108) mmol/L Carbon Dioxide (22-29) mmol/L Anion Gap (12-20) BUN (9-16) mg/dL Creatinine (0.5-1.4) mg/dL Estim Creat Clear Calc Estimated GFR Random Glucose (60-115) mg/dL Calcium (8.4-10.2) mg/dL Magnesium (1.6-2.6) mg/dL Total Bilirubin (0.0-1.0) mg/dL Direct Bilirubin (0.0-0.5) mg/dL AST (5-31) U/L ALT (0-31) U/L Alkaline Phosphatase (39-117) U/L Troponin I High Sens 25.6 H (<3.5-17.0) ng/L B-Natriuretic Peptide 100 (<100) pg/mL Total Protein (6.5-8.0) g/dL Albumin (3.5-5.0) g/dL Influenza Type A (PCR) NEGATIVE (Negative) Influenza Type B (PCR) NEGATIVE (Negative) RSV RNA Qual (PCR) POSITIVE A (Negative) SARS-CoV-2 RNA (RT-PCR) NEGATIVE (Negative) <CORNELIO Stevens - Last Filed: 10/10/22 13:51> Lab Results 10/10/22 10/10/2210/10/23 Range/Units 16:14 16:14 16:14 WBC 7.8 (4.8-10.8) X10*3/uL RBC 4.95 (4.20-5.50) X10*6/uL Hgb 15.1 (12.0-16.0) g/dl Hct 44.7 (37.0-47.0) % MCV 90.3 (80.0-98.0) fL MCH 30.5 (27.0-33.0) pg MCHC 33.8 (31.0-35.0) g/dl RDW 13.6 (11.0-16.0) % Plt Count 209 (160-400) X10*3/uL MPV 9.5 (9.4-12.3) fL Immature Gran % (Auto) 0.4 (0.0-0.4) % Neut % (Auto) 76.6 H (45-73) % Lymph % (Auto) 14.5 L (20-40) % Garden % (Auto) 6.8 (2-11) % Eos % (Auto) 1.4 (0-4) % Baso % (Auto) 0.3 (0-2) % Lymph # (Auto) 1.1 L (1.2-4.9) X10*3/uL Garden # (Auto) 0.5 (0.1-1.2) X10*3/uL Eos # (Auto) 0.1 (0.0-0.4) X10*3/uL Baso # (Auto) 0.0 (0.0-0.2) X10*3/uL Abs Immat Gran (auto) 0.03 (0.00-0.03) X10*3/uL Absolute Neuts (auto) 6.0 (2.0-8.3) x10*3/uL Absolute Nucleated RBC 0.000 (0.0-0.012) X10*3/uL Nucleated RBC % (auto) 0.0 (0.0-0.2) /100WBC Sodium 135 (135-145) mmol/L Potassium 3.8 (3.3-5.1) mmol/L Chloride 95 L (96-108) mmol/L Carbon Dioxide 31 H (22-29) mmol/L Anion Gap 13 (12-20) BUN 15 (9-16) mg/dL Creatinine 1.01 (0.5-1.4) mg/dL Estim Creat Clear Calc 41.8 Estimated GFR 53 Random Glucose 175 H (60-115) mg/dL Calcium 9.8 (8.4-10.2) mg/dL Magnesium 1.8 (1.6-2.6) mg/dL Total Bilirubin 0.6 (0.0-1.0) mg/dL Direct Bilirubin 0.2 (0.0-0.5) mg/dL AST 24 (5-31) U/L ALT 16 (0-31) U/L Alkaline Phosphatase 122 H (39-117) U/L Troponin I High Sens 26.9 H (<3.5-17.0) ng/L B-Natriuretic Peptide (<100) pg/mL Total Protein 7.1 (6.5-8.0) g/dL Albumin 4.3 (3.5-5.0) g/dL Influenza Type A (PCR) (Negative) Influenza Type B (PCR) (Negative) RSV RNA Qual (PCR) (Negative) SARS-CoV-2 RNA (RT-PCR) (Negative) 10/10/22 10/10/22 10/10/22 Range/Units 16:14 16:15 19:54 WBC (4.8-10.8) X10*3/uL RBC (4.20-5.50) X10*6/uL Hgb (12.0-16.0) g/dl Hct (37.0-47.0) % MCV (80.0-98.0) fL MCH (27.0-33.0) pg MCHC (31.0-35.0) g/dl RDW (11.0-16.0) % Plt Count (160-400) X10*3/uL MPV (9.4-12.3) fL Immature Gran % (Auto) (0.0-0.4) % Neut % (Auto) (45-73) % Lymph % (Auto) (20-40) % Garden % (Auto) (2-11) % Eos % (Auto) (0-4) % Baso % (Auto) (0-2) % Lymph # (Auto) (1.2-4.9) X10*3/uL Garden # (Auto) (0.1-1.2) X10*3/uL Eos # (Auto) (0.0-0.4) X10*3/uL Baso # (Auto) (0.0-0.2) X10*3/uL Abs Immat Gran (auto) (0.00-0.03) X10*3/uL Absolute Neuts (auto) (2.0-8.3) x10*3/uL Absolute Nucleated RBC (0.0-0.012) X10*3/uL Nucleated RBC % (auto) (0.0-0.2) /100WBC Sodium (135-145) mmol/L Potassium (3.3-5.1) mmol/L Chloride (96-108) mmol/L Carbon Dioxide (22-29) mmol/L Anion Gap (12-20) BUN (9-16) mg/dL Creatinine (0.5-1.4) mg/dL Estim Creat Clear Calc Estimated GFR Random Glucose (60-115) mg/dL Calcium (8.4-10.2) mg/dL Magnesium (1.6-2.6) mg/dL Total Bilirubin (0.0-1.0) mg/dL Direct Bilirubin (0.0-0.5) mg/dL AST (5-31) U/L ALT (0-31) U/L Alkaline Phosphatase (39-117) U/L Troponin I High Sens 25.6 H (<3.5-17.0) ng/L B-Natriuretic Peptide 100 (<100) pg/mL Total Protein (6.5-8.0) g/dL Albumin (3.5-5.0) g/dL Influenza Type A (PCR) NEGATIVE (Negative) Influenza Type B (PCR) NEGATIVE (Negative) RSV RNA Qual (PCR) POSITIVE A (Negative) SARS-CoV-2 RNA (RT-PCR) NEGATIVE (Negative) <Chrystal Whitfield MD - Last Filed: 10/10/22 20:28> Discharge Plan Discharge Clinical Impression: RSV infection <CORNELIO Stevens - Last Filed: 10/10/22 13:51> Patient Disposition: Home, Self-Care <CORNELIO Stevens - Last Filed: 10/10/22 13:51> Instructions: Respiratory Syncytial Virus (ED) <CORNELIO Stevens - Last Filed: 10/10/22 13:51> Additional Instructions: Please follow-up with your primary care physician tomorrow. If you have any worsening or new symptoms, please return to the emergency room or call 911 <CORNELIO Stevens - Last Filed: 10/10/22 13:51> Prescriptions: New benzonatate 100 mg capsule 100 mg PO TID PRN (Reason: cough) Qty: 10 0RF prednisone 50 mg tablet 50 mg PO DAILY Qty: 4 0RF fluticasone propionate [Flonase Allergy Relief] 50 mcg/actuation spray,suspension 1 spray intranasal DAILY Qty: 16 0RF Rx Instructions: administer into each nostril No Action prednisone 20 mg tablet 40 mg PO DAILY Qty: 10 0RF ondansetron 4 mg tablet,disintegrating 4 mg PO Q6H PRN (Reason: nausea and vomiting) Qty: 10 0RF <CORNELIO Stevens - Last Filed: 10/10/22 13:51>
[2022-10-10 16:19] LABS: MANUAL DIFF FLAG NO
[2022-10-10 16:22] LABS: Basophils Percent Auto 0.3 % (0-2); Eosinophils Absolute Auto 0.1 X10*3/uL (0.0-0.4); Eosinophils Percent Auto 1.4 % (0-4); Hematocrit 44.7 % (37.0-47.0); Hemoglobin 15.1 g/dl (12.0-16.0); Imm Gran Abs Auto 0.03 X10*3/uL (0.00-0.03); Imm Gran Pct Auto 0.4 % (0.0-0.4); Lymphocytes Absolute Auto 1.1 X10*3/uL (1.2-4.9); Lymphocytes Percent Auto 14.5 % (20-40); Mean Corpuscular HGB Conc 33.8 g/dl (31.0-35.0); Mean Corpuscular Hemoglobin 30.5 pg (27.0-33.0); Mean Corpuscular Volume 90.3 fL (80.0-98.0); Mean Platelet Volume 9.5 fL (9.4-12.3); Monocytes Absolute Auto 0.5 X10*3/uL (0.1-1.2); Monocytes Percent Auto 6.8 % (2-11); Neutrophils Percent Auto 76.6 % (45-73); Platelet Count 209 X10*3/uL (160-400); Red Blood Count 4.95 X10*6/uL (4.20-5.50); Red Cell Distribution Width 13.6 % (11.0-16.0); White Blood Count 7.8 X10*3/uL (4.8-10.8)
[2022-10-10 16:40] LABS: Alanine Aminotransferase 16 U/L (0-31); Albumin Level 4.3 g/dL (3.5-5.0); Alkaline Phosphatase 122 U/L (39-117); Anion Gap 13 (12-20); Aspartate Amino Transferase 24 U/L (5-31); Bilirubin Direct 0.2 mg/dL (0.0-0.5); Bilirubin Total 0.6 mg/dL (0.0-1.0); Blood Urea Nitrogen 15 mg/dL (9-16); Calcium 9.8 mg/dL (8.4-10.2); Carbon Dioxide 31 mmol/L (22-29); Chloride 95 mmol/L (96-108); Creatinine Clr Calc Pharmacy 41.8; Estimated Glomerular Filt Rate 53; Glucose Random 175 mg/dL (60-115); Magnesium 1.8 mg/dL (1.6-2.6); Potassium 3.8 mmol/L (3.3-5.1); Sodium 135 mmol/L (135-145); Total Protein 7.1 g/dL (6.5-8.0)
[2022-10-10 16:44] LABS: B Type Natriuretic Peptide 100 pg/mL (<100)
[2022-10-10 16:47] LABS: Troponin-I High Sensitivity 26.9 ng/L (<3.5-17.0)
[2022-10-10 17:04] LABS: Influenza A PCR NEGATIVE (Negative); Influenza B PCR NEGATIVE (Negative); Resp Syncy Virus RNA Qual PCR POSITIVE (Negative); SARS COV2 PCR INHOUSE NEGATIVE (Negative)
[2022-10-10 18:11] VITALS: BP 158/90; PULSE 81; RESP 20; TEMP 37.3; O2SAT 95
[2022-10-10] MEDS: predniSONE 20 MG TABLET 60 MG PO (18:15)
[2022-10-10] MEDS: Benzonatate 100 MG CAPSULE PO (18:15)
--- NOTE | 2022-10-10 19:36 | PC.NURSE ---
assumed care of pt aox4 c/o headache 02/24 pain no apparent distress, eating dinner provided by [facility]
--- NOTE | 2022-10-10 19:37 | PC.NURSE ---
provider notified of pt's headache, requested med for pain
[2022-10-10 20:00] VITALS: O2SAT 96
[2022-10-10 20:20] LABS: Troponin-I High Sensitivity 25.6 ng/L (<3.5-17.0)
--- NOTE | 2022-10-10 20:55 | PC.NURSE ---
d/c instructions given/explained, pt able to speak in full sentences, no respiratory distress, ambulates safely/independently, all questions answered
== END 2022-10-10 20:49 | disposition home or self-care (01) ==
PROVIDERS: Physician Assistant; Emergency Provider Emergency Medicine; PCP Internal Medicine
DX: J06.9 Acute upper respiratory infection, unspecified (principal); B97.4 Respiratory syncytial virus as the cause of diseases classified elsewhere; R06.02 Shortness of breath; R05.9 Cough, unspecified; Z20.822 Contact with and (suspected) exposure to COVID-19; Z20.828 Contact with and (suspected) exposure to other viral communicable diseases; Z79.899 Other long term (current) drug therapy
CPT/HCPCS: 0241U; 36415; 71045; 80048; 80076; 83735; 83880; 84484; 85025; 93005; 99283; 99284

== ENCOUNTER 2023-01-16 09:18 | Emergency (ER) | payer MEDICARE, BC, SELFPAY ==
--- NOTE | ~2023-01-16 | CT_ITS ---
EXAMINATION: CTA CHEST CT ABDOMEN AND PELVIS WITH IV CONTRAST CLINICAL INDICATION: History of AAA. Rule out AAA rupture. COMPARISON: None available. TECHNIQUE: 5 mm thin axial and reformatted 3 mm thin sagittal and coronal and triplanar MIP imaging of chest were obtained following rapid IV 85 mL Omnipaque 350. Subsequently 5 mm thin axial and reformatted 3 mm thin coronal and sagittal images of abdomen and pelvis were obtained with IV contrast. DLP: 537 mGy-cm This CT examination was performed using dose optimization technique as appropriate, variously including the following: Automated exposure control Adjustment of MA and/or KV according to patient size(this includes techniques or standardized protocols for targeted exams where dose is matched to indication/reason for exam; extremities or head. Use of iterative reconstruction techniques. FINDINGS: CHEST: Mediastinum: There is mild prominence of ascending aorta but no dilation. Measures 3.5 x 3.9 cm. The descending thoracic aorta measures 2.5 x 2.3 cm. There is partial thrombus in the arch, mid and descending thoracic aorta. No evidence of aortic dissection seen. The pulmonary arteries are well opacified and appear unremarkable. No pericardial effusion seen. Central trachea and the bronchi are widely patent. No abnormal-sized mediastinal or hilar lymph nodes. Thyroid lobes are symmetric and normal. Lungs: There is centrilobular emphysema without acute pneumonic process. There are mild atelectatic changes in both lung bases. There is a 4 mm nodule right middle lobe axial image 35/8. No additional pulmonary nodule seen. Mild dependent atelectatic changes seen in the lung bases. Pleura: There is no pleural thickening, effusion or calcification. Axilla: No abnormal axillary lymph nodes. The chest wall is unremarkable. ABDOMEN AND PELVIS: Liver, ducts and gallbladder. The liver is homogeneous in density, normal size and contour. No focal lesion or intrahepatic ductal dilatation seen. Gallbladder is contracted. Spleen: Unremarkable. Pancreas: No pancreatic thickness seen. The peripancreatic fat soft tissues are normal. Adrenal glands: Unremarkable. Kidneys and ureters: Both kidneys are normal size and density. No radiopaque renal calculi or hydroureteronephrosis seen. Lymphovascular structures: No abnormal lymph nodes. The abdominal aorta is normal caliber. Abdominal wall: Unremarkable. GI tract: There is scattered stool in colon without distention. The small bowel loops are normal caliber. There is no free fluid or free air. Pelvis: The urinary bladder is distended and appears unremarkable. The uterus is retroverted and appears unremarkable. Osseous structures: There is grade I anterolisthesis L4 over L5 through. There are degenerative disc changes L1-L2, L4-L5 disc levels. No aggressive lytic process. There is mild sclerosis right sacrum around the right S2 foramina likely bone island. CT/CT abdomen pelvis w IV con IMPRESSION: No evidence of aortic aneurysm or dissection. No evidence of PE. Mild atherosclerosis and thrombus within the mid, distal descending aorta and ascending aorta. 4 mm lung nodule right lower lobe. No acute parenchymal process. There is no abdominal aortic aneurysm or dissection. Mild constipation without obstruction.
[2023-01-16 09:25] VITALS: BP 138/92; PULSE 72; O2SAT 94
--- NOTE | 2023-01-16 09:28 | ECG_ITS ---
Test Reason : CP Blood Pressure : / mmHG Vent. Rate : 070 BPM Atrial Rate : 070 BPM P-R Int : 190 ms QRS Dur : 084 ms QT Int : 396 ms P-R-T Axes : 053 036 060 degrees QTc Int : 427 ms Normal sinus rhythm Normal ECG When compared with ECG of 10-OCT-2022 13:43, No significant change was found Referred By: Ricco Llanos Electronically Signed By:LOUIE LAZCANO MD
[2023-01-16 09:47] VITALS: BP 143/78; PULSE 74; RESP 20; TEMP 36.6; O2SAT 98; BMI 22.1
--- NOTE | 2023-01-16 10:10 | ED.CHESTPAIN ---
HPI - Chest Pain General Chief Complaint: Chest Pain Stated Complaint: chest pain on exer from urgent care per ems Time Seen by Provider: 01/16/23 09:23 Source: patient Mode of arrival: ambulatory Limitations: no limitations History of Present Illness HPI narrative: 77-year-old female came in for evaluation of right side chest pain started since yesterday. Pain has been constant localized to the right side of the chest, pain is worsening with deep breath, talking, raising her right arm above her head, pain is radiating to her back, plan has been severe 06/26, declined any trauma to the chest, no recent travel, no lower extremity swelling or tenderness, no prolonged immobilization but blood clots run in the family. Related Data Home Medications Medication Instructions Recorded Confirmed amlodipine 10 mg tablet 10 mg PO DAILY 01/16/23 01/16/23 atorvastatin 10 mg tablet 10 mg PO BEDTIME 01/16/23 01/16/23 chlorthalidone 25 mg tablet 12.5 mg PO Q OTHER DAY 01/16/23 01/16/23 famotidine 20 mg tablet 20 mg PO DAILY 01/16/23 01/16/23 levothyroxine 50 mcg capsule 50 mcg PO DAILY 01/16/23 01/16/23 lorazepam 0.5 mg tablet 0.5 mg PO DAILY PRN 01/16/23 01/16/23 losartan 100 mg tablet 100 mg PO DAILY 01/16/23 01/16/23 magnesium 250 mg tablet 500 mg PO DAILY 01/16/23 01/16/23 valacyclovir 500 mg tablet 500 mg PO DAILY PRN 01/16/23 01/16/23 zinc acetate 50 mg (zinc) capsule 50 mg PO DAILY 01/16/23 01/16/23 Previous Rx's Medication Instructions Recorded fluticasone propionate 50 1 spray intranasal DAILY #16 grams 10/10/22 mcg/actuation nasal spray,suspension (Flonase Allergy Relief) Allergies Allergy/AdvReac Type Severity Reaction Status Date / Time latex [LATEX] Allergy Unknown RASH Verified 01/16/23 09:50 Review of Systems Review of Systems: All other systems are reviewed and are negative Constitutional: Reports as per HPI and Reports no additional constitutional complaints Eyes: Reports as per HPI and Reports no additional eye complaints Reports system reviewed and no additional complaints, except as documented Cardiovascular: Reports as per HPI and Reports no additional cardiovascular complaints Respiratory: Reports as per HPI and Reports no additional respiratory complaints Gastrointestinal: Reports as per HPI and Reports no additional gastrointestinal complaints Genitourinary: Reports no additional female genitourinary complaints Musculoskeletal: Reports no additional musculoskeletal complaints Skin/Breast: Reports system reviewed and no additional complaints, except as docu Psychiatric: Reports no additional psychiatric complaints Endocrine: Reports no additional endocrine complaints Hematologic/Lymphatic: Reports no additional hematologic/lymphatic complaints Allergic/Immunologic: Reports no additional allergic/immunologic complaints Reports system reviewed and no additional complaints, except as documented and Reports Abnormal speech present [facility] Past Medical History Medical History Asthma COPD (chronic obstructive pulmonary disease) Hypercholesteremia Hypertension Thyroid activity decreased Social History Social History Alcohol intake: never Smoked in Last 30 Days: No Use of substances other than those prescribed or required for medical reasons: No Advance Directives: Yes Advance Directives Information Provided: Yes Advance Directives on File: No Physical Exam Vital Signs: Vital Signs: Last Vital Signs Temp 98 F 01/16/23 09:47 Pulse 82 01/16/23 15:28 Resp 19 01/16/23 15:28 BP 137/93 H 01/16/23 15:28 Pulse Ox 96 01/16/23 15:28 O2 Del Method Room Air 01/16/23 15:28 BMI result Body Mass Index 22.1 Vital signs have been reviewed as appeared to be correct. Blood pressure normal. Heart rate normal. Respiration rate normal. Temperature normal. Oxygen saturation normal. Appearance: Alert. Oriented X3. No acute distress. Head: Normal external exam. Normocephalic. Atraumatic. No Mckay signs noted. No raccoon eyes noted Eyes: PERRLA. EOMI. Conjunctiva and sclera normal. Eyelids normal. ENT: TM's Normal. Pharynx normal. Uvula midline. Moist mucous membranes. No trismus noted. No drooling noted. No muffled voice noted. Neck: Normal inspection. Neck supple. FROM. No adenopathy. Thyroid Normal. No meningeal signs. No neck mass noted. CVS: Normal heart rate and rhythm. Heart sound normal. No murmurs noted. Pulses normal throughout. Respiratory: No respiratory distress. Painless inspiration. Breath sounds normal. No wheezes/rales/rhonchi noted. Chest nontender. No accessory muscle usage noted or decreased air movement noted. Abdomen: Soft and nontender. Bowel sounds normal in all 4 quadrants. No distention noted. No organomegaly noted. No visible injury noted. Back: No CVA tenderness. Full range of motion noted. Skin: Skin warm and dry. Normal skin color. Normal skin turgor. No rashes/lesions/lacerations noted. Extremities: No lower extremity edema. Extremities exhibit normal range of motion. Extremities nontender. Neuro: Oriented X 3. Cranial nerve exam: II-XII are grossly intact No motor deficit. No sensory deficit. Reflexes normal. Course Course Course Narrative: 77-year-old female came in with chest pain showed slight elevation of troponin with no delta changes, EKG/clinical scenario not consistent with ACS. Patient has history abdominal aneurysm and a strong family history of pulmonary embolism awaiting for CTA/CT of the abdomen and pelvis to assess for AAA/PE case signed out to Dr. Whitfield. Medications Administered Discontinued Medications Generic Name Dose Route Start Last Admin Trade Name Freq PRN Reason Stop Dose Admin Sodium Chloride 1,000 mls @ 999 mls/hr 01/16/23 09:44 01/16/23 11:12 Ns IV 01/16/23 10:44 999 mls/hr .Q1H1M ONE Administration Iohexol 100 ml 01/16/23 11:32 01/16/23 11:33 Iohexol 350 Mg/Ml 100 Ml Infus..Btl IV 01/16/23 11:33 85 ml ONCE ONE Administration Medical Decision Making Differential Diagnosis Differential Diagnoses: The differential diagnosis associated with the presentation includes (Chest pain, ACS, aortic dissection, AAA rupture, pulmonary embolism, pleurisy, electrolyte abnormalities, severe anemia.) Admission/Observation Consideration of admission/observation: Escalation of care including admission/observation considered Lab Data MDM Lab Attestation statement: I reviewed the patient's lab results. 01/16/23 10:28 01/16/23 10:28 Labs: Lab Results 01/16/23 01/16/23 01/16/23 Range/Units 10:28 10:28 10:28 WBC 9.6 (4.8-10.8) X10*3/uL RBC 4.61 (4.20-5.50) X10*6/uL Hgb 13.9 (12.0-16.0) g/dl Hct 41.8 (37.0-47.0) % MCV 90.7 (80.0-98.0) fL MCH 30.2 (27.0-33.0) pg MCHC 33.3 (31.0-35.0) g/dl RDW 14.0 (11.0-16.0) % Plt Count 221 (160-400) X10*3/uL MPV 9.5 (9.4-12.3) fL Immature Gran % (Auto) 0.3 (0.0-0.4) % Neut % (Auto) 72.5 (45-73) % Lymph % (Auto) 17.6 L (20-40) % [place] % (Auto) 7.9 (2-11) % Eos % (Auto) 1.4 (0-4) % Baso % (Auto) 0.3 (0-2) % Lymph # (Auto) 1.7 (1.2-4.9) X10*3/uL [place] # (Auto) 0.8 (0.1-1.2) X10*3/uL Eos # (Auto) 0.1 (0.0-0.4) X10*3/uL Baso # (Auto) 0.0 (0.0-0.2) X10*3/uL Abs Immat Gran (auto) 0.03 (0.00-0.03) X10*3/uL Absolute Neuts (auto) 7.0 (2.0-8.3) x10*3/uL Absolute Nucleated RBC 0.000 (0.0-0.012) X10*3/uL Nucleated RBC % (auto) 0.0 (0.0-0.2) /100WBC Sodium 138 (135-145) mmol/L Potassium 3.8 (3.3-5.1) mmol/L Chloride 102 (96-108) mmol/L Carbon Dioxide 29 (22-29) mmol/L Anion Gap 11 L (12-20) BUN 18 H (9-16) mg/dL Creatinine 0.81 (0.5-1.4) mg/dL Estim Creat Clear Calc 43.2 Estimated GFR > 60 Random Glucose 94 (60-115) mg/dL Calcium 9.5 (8.4-10.2) mg/dL Total Bilirubin 1.0 (0.0-1.0) mg/dL Direct Bilirubin 0.3 (0.0-0.5) mg/dL AST 28 (5-31) U/L ALT 22 (0-31) U/L Alkaline Phosphatase 100 (39-117) U/L Troponin I High Sens 20.4 H (<3.5-17.0) ng/L B-Natriuretic Peptide (<100) pg/mL Total Protein 6.2 L (6.5-8.0) g/dL Albumin 3.9 (3.5-5.0) g/dL Lipase 21 (8-78) U/L Urine Color Urine Appearance Urine pH (5.0-9.0) Ur Specific [place] (1.005-1.025) Urine Protein (Neg-Trace) mg/dL Urine Glucose (UA) (Negative) mg/dL Urine Ketones (Negative) mg/dL Urine Blood (Negative) Urine Nitrite (Negative) Ur Leukocyte Esterase (Negative) COVID-19 ([facility]) (Negative) COVID-19 Clin Com 01/16/23 01/16/23 01/16/23 Range/Units 10:28 10:28 12:05 WBC (4.8-10.8) X10*3/uL RBC (4.20-5.50) X10*6/uL Hgb (12.0-16.0) g/dl Hct (37.0-47.0) % MCV (80.0-98.0) fL MCH (27.0-33.0) pg MCHC (31.0-35.0) g/dl RDW (11.0-16.0) % Plt Count (160-400) X10*3/uL MPV (9.4-12.3) fL Immature Gran % (Auto) (0.0-0.4) % Neut % (Auto) (45-73) % Lymph % (Auto) (20-40) % [place] % (Auto) (2-11) % Eos % (Auto) (0-4) % Baso % (Auto) (0-2) % Lymph # (Auto) (1.2-4.9) X10*3/uL [place] # (Auto) (0.1-1.2) X10*3/uL Eos # (Auto) (0.0-0.4) X10*3/uL Baso # (Auto) (0.0-0.2) X10*3/uL Abs Immat Gran (auto) (0.00-0.03) X10*3/uL Absolute Neuts (auto) (2.0-8.3) x10*3/uL Absolute Nucleated RBC (0.0-0.012) X10*3/uL Nucleated RBC % (auto) (0.0-0.2) /100WBC Sodium (135-145) mmol/L Potassium (3.3-5.1) mmol/L Chloride (96-108) mmol/L Carbon Dioxide (22-29) mmol/L Anion Gap (12-20) BUN (9-16) mg/dL Creatinine (0.5-1.4) mg/dL Estim Creat Clear Calc Estimated GFR Random Glucose (60-115) mg/dL Calcium (8.4-10.2) mg/dL Total Bilirubin (0.0-1.0) mg/dL Direct Bilirubin (0.0-0.5) mg/dL AST (5-31) U/L ALT (0-31) U/L Alkaline Phosphatase (39-117) U/L Troponin I High Sens (<3.5-17.0) ng/L B-Natriuretic Peptide 94 (<100) pg/mL Total Protein (6.5-8.0) g/dL Albumin (3.5-5.0) g/dL Lipase (8-78) U/L Urine Color Yellow Urine Appearance Clear Urine pH 7.5 (5.0-9.0) Ur Specific [place] 1.015 (1.005-1.025) Urine Protein Negative (Neg-Trace) mg/dL Urine Glucose (UA) Negative (Negative) mg/dL Urine Ketones Trace (Negative) mg/dL Urine Blood Negative (Negative) Urine Nitrite Negative (Negative) Ur Leukocyte Esterase Negative (Negative) COVID-19 (LANCE) Negative (Negative) COVID-19 Clin Com See Note 01/16/23 Range/Units 13:41 WBC (4.8-10.8) X10*3/uL RBC (4.20-5.50) X10*6/uL Hgb (12.0-16.0) g/dl Hct (37.0-47.0) % MCV (80.0-98.0) fL MCH (27.0-33.0) pg MCHC (31.0-35.0) g/dl RDW (11.0-16.0) % Plt Count (160-400) X10*3/uL MPV (9.4-12.3) fL Immature Gran % (Auto) (0.0-0.4) % Neut % (Auto) (45-73) % Lymph % (Auto) (20-40) % [place] % (Auto) (2-11) % Eos % (Auto) (0-4) % Baso % (Auto) (0-2) % Lymph # (Auto) (1.2-4.9) X10*3/uL [place] # (Auto) (0.1-1.2) X10*3/uL Eos # (Auto) (0.0-0.4) X10*3/uL Baso # (Auto) (0.0-0.2) X10*3/uL Abs Immat Gran (auto) (0.00-0.03) X10*3/uL Absolute Neuts (auto) (2.0-8.3) x10*3/uL Absolute Nucleated RBC (0.0-0.012) X10*3/uL Nucleated RBC % (auto) (0.0-0.2) /100WBC Sodium (135-145) mmol/L Potassium (3.3-5.1) mmol/L Chloride (96-108) mmol/L Carbon Dioxide (22-29) mmol/L Anion Gap (12-20) BUN (9-16) mg/dL Creatinine (0.5-1.4) mg/dL Estim Creat Clear Calc Estimated GFR Random Glucose (60-115) mg/dL Calcium (8.4-10.2) mg/dL Total Bilirubin (0.0-1.0) mg/dL Direct Bilirubin (0.0-0.5) mg/dL AST (5-31) U/L ALT (0-31) U/L Alkaline Phosphatase (39-117) U/L Troponin I High Sens 21.0 H (<3.5-17.0) ng/L B-Natriuretic Peptide (<100) pg/mL Total Protein (6.5-8.0) g/dL Albumin (3.5-5.0) g/dL Lipase (8-78) U/L Urine Color Urine Appearance Urine pH (5.0-9.0) Ur Specific [place] (1.005-1.025) Urine Protein (Neg-Trace) mg/dL Urine Glucose (UA) (Negative) mg/dL Urine Ketones (Negative) mg/dL Urine Blood (Negative) Urine Nitrite (Negative) Ur Leukocyte Esterase (Negative) COVID-19 ([facility]ANCE) (Negative) COVID-19 Clin Com Independent Interpretation I performed an independent interpretation of an: EKG (Normal sinus rhythm at 70 beats per minutes, normal axis deviation, normal intervals, no ST-T changes.) and CT Scan Radiology Impression Discussion of test interpretation with radiology: I have reviewed the radiologist's reading. Discharge Plan Discharge Clinical Impression: Atypical chest pain, Pleurisy Patient Disposition: Still a Patient Prescriptions: No Action fluticasone propionate [Flonase Allergy Relief] 50 mcg/actuation spray,suspension 1 spray intranasal DAILY Qty: 16 0RF Rx Instructions: administer into each nostril amlodipine 10 mg tablet 10 mg PO DAILY losartan 100 mg tablet 100 mg PO DAILY chlorthalidone 25 mg tablet 12.5 mg PO Q OTHER DAY atorvastatin 10 mg tablet 10 mg PO BEDTIME famotidine 20 mg tablet 20 mg PO DAILY levothyroxine 50 mcg capsule 50 mcg PO DAILY magnesium 250 mg tablet 500 mg PO DAILY zinc acetate 50 mg (zinc) capsule 50 mg PO DAILY lorazepam 0.5 mg tablet 0.5 mg PO DAILY PRN valacyclovir 500 mg tablet 500 mg PO DAILY PRN
[2023-01-16 10:37] LABS: MANUAL DIFF FLAG NO
[2023-01-16 10:40] LABS: Basophils Percent Auto 0.3 % (0-2); Eosinophils Absolute Auto 0.1 X10*3/uL (0.0-0.4); Eosinophils Percent Auto 1.4 % (0-4); Hematocrit 41.8 % (37.0-47.0); Hemoglobin 13.9 g/dl (12.0-16.0); Imm Gran Abs Auto 0.03 X10*3/uL (0.00-0.03); Imm Gran Pct Auto 0.3 % (0.0-0.4); Lymphocytes Absolute Auto 1.7 X10*3/uL (1.2-4.9); Lymphocytes Percent Auto 17.6 % (20-40); Mean Corpuscular HGB Conc 33.3 g/dl (31.0-35.0); Mean Corpuscular Hemoglobin 30.2 pg (27.0-33.0); Mean Corpuscular Volume 90.7 fL (80.0-98.0); Mean Platelet Volume 9.5 fL (9.4-12.3); Monocytes Absolute Auto 0.8 X10*3/uL (0.1-1.2); Monocytes Percent Auto 7.9 % (2-11); Neutrophils Percent Auto 72.5 % (45-73); Platelet Count 221 X10*3/uL (160-400); Red Blood Count 4.61 X10*6/uL (4.20-5.50); White Blood Count 9.6 X10*3/uL (4.8-10.8)
[2023-01-16 11:00] LABS: Alanine Aminotransferase 22 U/L (0-31); Albumin Level 3.9 g/dL (3.5-5.0); Alkaline Phosphatase 100 U/L (39-117); Anion Gap 11 (12-20); Aspartate Amino Transferase 28 U/L (5-31); Bilirubin Direct 0.3 mg/dL (0.0-0.5); Blood Urea Nitrogen 18 mg/dL (9-16); Calcium 9.5 mg/dL (8.4-10.2); Carbon Dioxide 29 mmol/L (22-29); Chloride 102 mmol/L (96-108); Creatinine Clr Calc Pharmacy 43.2; Estimated Glomerular Filt Rate > 60; Glucose Random 94 mg/dL (60-115); Lipase 21 U/L (8-78); Potassium 3.8 mmol/L (3.3-5.1); Sodium 138 mmol/L (135-145); Total Protein 6.2 g/dL (6.5-8.0)
[2023-01-16 11:07] LABS: B Type Natriuretic Peptide 94 pg/mL (<100); Troponin-I High Sensitivity 20.4 ng/L (<3.5-17.0)
[2023-01-16 11:09] VITALS: BP 155/85; PULSE 78; RESP 16; O2SAT 97
[2023-01-16] MEDS: 0.9 % Sodium Chloride 1,000 ML 999 ML IV (11:12)
[2023-01-16 11:18] LABS: COVID-19 Test Negative (Negative); IDNOW Serial# 55D5AD1C
[2023-01-16] MEDS: iohexoL 350 MG/ML 100 ML INFUS..BTL IV (11:33)
[2023-01-16 12:02] VITALS: BP 146/80; PULSE 85; RESP 18; O2SAT 97
[2023-01-16 12:23] LABS: Appearance Urine Clear; Color Urine Yellow; Glucose Urine UA Negative (Negative); Leukocyte Esterase Urine Negative (Negative); Nitrite Urine Negative (Negative); PH 7.5 (5.0-9.0); Specific Gravity - Urine 1.015 (1.005-1.025); Urine Blood Negative (Negative); Urine Ketones Trace mg/dL (Negative); Urine Protein Negative (Neg-Trace)
--- NOTE | 2023-01-16 13:02 | PC.NURSE ---
Patient resting on stretcher at this time after getting CT scan. Patient is alert and oriented denies any pain at this time. Lung sounds clear.
[2023-01-16 15:28] VITALS: BP 137/93; PULSE 82; RESP 19; O2SAT 96
[2023-01-16] MEDS: Apixaban 5 MG TABLET 10 MG PO (18:37)
[2023-01-16 18:44] VITALS: BP 147/80; PULSE 94; RESP 18; O2SAT 94
== END 2023-01-16 18:48 | disposition home or self-care (01) ==
PROVIDERS: Emergency Medicine; Emergency Provider Emergency Medicine; PCP Internal Medicine
DX: R07.89 Other chest pain (principal); R06.02 Shortness of breath; R10.30 Lower abdominal pain, unspecified; Z20.822 Contact with and (suspected) exposure to COVID-19; Z20.828 Contact with and (suspected) exposure to other viral communicable diseases; Z79.899 Other long term (current) drug therapy
CPT/HCPCS: 36415; 71275; 74177; 80048; 80076; 81003; 83690; 83880; 84484; 85025; 87635; 93005; 99284; 99285; Q9967

== ENCOUNTER 2023-11-20 14:34 | Outpatient (AMB) | payer MEDICARE, BC, SELFPAY ==
[2023-11-20 14:45] VITALS: BP 132/76; PULSE 78; TEMP 36.2; O2SAT 95; BMI 23.1
--- NOTE | 2023-11-20 14:45 | MHC.PC.OV ---
Vital Signs 11/20/23 14:45 Height 5 ft 1 in Weight 122 lb 6 oz BMI 23.1 BP 132/76 Blood Pressure Location Lt brachial Position Sitting Intake Visit Reasons: EP sore throat masked in lobby Allergies latex [LATEX] Allergy (Unknown, Verified 01/16/23 09:50) RASH HPI HPI Comments History of Present Illness Details Patient is a 78-year-old female in today for sick visit. She has a past medical history significant for hypertension, hyperlipidemia, hypothyroid. PFSH Medical History Asthma COPD (chronic obstructive pulmonary disease) Hypercholesteremia Hypertension Thyroid activity decreased Social History Alcohol intake: never Coding
--- NOTE | 2023-11-20 14:49 | AM.OFFWIN_ITS ---
Intake Vital Signs 11/20/23 14:45 Height 5 ft 1 in Weight 122 lb 6 oz BMI 23.1 BP 132/76 Blood Pressure Location Lt brachial Position Sitting Pulse 78 Pulse Source Pulse Oximeter Temp 97.1 F Temp Source Oral Pulse Oximetry (%) 95 Oxygen Delivery Method Room Air Intake Visit Reasons: EP sore throat masked in lobby Intake Note: Pt is here today for sore throat, pt states she noticed this morning. Allergies latex [LATEX] Allergy (Unknown, Verified 11/20/23 14:50) RASH Do you need a note to return to daycare/school/sports/work: No HPI HPI Comments History of Present Illness Details Patient is a 78-year-old female in today for a sick visit. She has a past medical history significant for hypertension, hyperlipidemia, hypothyroid, and COPD. She has stab wish care with a flexible babysitter. Patient states that for the past day she has developed symptoms of which sore throat, chest congestion, inability to clear mucus, and chills. She has not tried any [id number] medications. States that her usual inhalers have not given the relief that she usually gets. Denies chest pain, shortness a breath, dizziness, numbness, nausea, vomiting, diarrhea. [facility] Medical History Thyroid activity decreased Asthma Hypercholesteremia Hypertension COPD (chronic obstructive pulmonary disease) Social History Alcohol intake: never Review of Systems Const Details: Constitutional : No Weight loss, No Fever, Admits Chills, No Fatigue, No Malaise ENT/Mouth : Admits sore throat, No Rhinorrhea Eyes: No Eye Pain, No Swelling, No Redness Cardiovascular : No Chest Pain, No SOB, No Dyspnea on Exertion, No Orthopnea, No Edema, No Palpitations Respiratory : Admits Cough, Admits Sputum, No Wheezing Gastrointestinal : No Nausea, No Vomiting, No Diarrhea, No Constipation, No abdominal Pain, No Hematochezia, No Melena Genitourinary : No Dysuria, No Urinary Frequency, No Hematuria, Musculoskeletal : No joint pain, No Myalgias, No Joint Swelling Skin : No Skin Lesions, No rash Neuro : No Weakness, No Numbness, No Dizziness, No Headache Psych : No Anxiety/Panic, No Depression Heme/Lymph: No Bruising, No Bleeding,No Lymphadenopathy Endocrine : No Polyuria, No Polydipsia All other systems reviewed and are negative Physical Exam Vital Signs: Last Vital Signs Temp 97.1 F 11/20/23 14:45 Pulse 78 11/20/23 14:45 BP 132/76 11/20/23 14:45 Pulse Ox 95 11/20/23 14:45 Oxygen Delivery Method Room Air 11/20/23 14:45 BMI result Body Mass Index 23.1 Const Other: Appearance: Alert.? Oriented X3.? No acute distress.? Head: Normocephalic, atraumatic. Eyes: Pupils equal, round and reactive to light.? ENT: Pharynx cobblestoned. + Nasal congestion. + post nasal drip. Neck: Normal inspection.? Neck supple.? CVS: Normal heart rate and rhythm.? Pulses normal.? Respiratory: No respiratory distress.? + Rhonchi Neuro: Oriented X 3.? No motor deficit.? No sensory deficit. CN 2-12 intact Office Procedures EKG [id number], Complete Results AMB Rapid Strep AMB Rapid Strep Negative Last Edit by Arcelia Calvillo MA on 11/20/23 14:56 Results Reviewed Results Reviewed: Laboratory Last Values Strep Scn Rapid Clinic Negative 11/20/23 14:55 Assessment & Plan Assessment & Plan (1) Upper respiratory infection: Comment: Patient likely has upper respiratory infection that is exacerbated COPD. Patient is having trouble clearing mucus. Will give prednisone and Augmentin to be taken as directed. Code(s): J06.9 - Acute upper respiratory infection, unspecified Qualifiers: URI type: unspecified URI Qualified Code(s): J06.9 - Acute upper respiratory infection, unspecified Plan: Take your medications as prescribed. If you were prescribed antibiotics today, it is important that you take your medication to their entirety, do not skip any doses, do not finish them early. Follow-up with your primary care provider this week. Return to the emergency department with new or worsening symptoms. Such as fevers, chills, chest pain, shortness of breath, nausea, vomiting, dizziness, headache, vision changes, lethargy In case of emergency call 911 Plan Follow-up with PCP. Orders: Orders SARS-CoV2/FLU/RSV Today J06.9 - Acute upper respiratory infection, unspecified AMB EKG-In Office Today R42 - Dizziness and giddiness Medications: New amoxicillin-pot clavulanate 875-125 mg 1 tab PO Q12H 14 tabs 0RF prednisone 20 mg PO BID 10 tabs 0RF Coding Level of Care Code Est Pt Level 3 (17735) Diagnoses Upper respiratory tract infection, unspecified type J06.9 URI type: unspecified URI CPT Codes EKG - CPT: 52693-[id number], Complete ([id number]) Time Spent (min) 23
== END 2023-11-20 16:20 | disposition home or self-care (01) ==
PROVIDERS: PCP Internal Medicine; Visit Provider Nurse Practitioner Primary Care
DX: J06.9 Acute upper respiratory infection, unspecified (principal); J02.9 Acute pharyngitis, unspecified
CPT/HCPCS: 87880; 93000; 99213

== ENCOUNTER 2023-11-20 16:35 | Outpatient (REF) | payer MEDICARE, BC, SELFPAY ==
[2023-11-20 17:34] LABS: Influenza A PCR NEGATIVE (Negative); Influenza B PCR NEGATIVE (Negative); Resp Syncy Virus RNA Qual PCR NEGATIVE (Negative); SARS COV2 PCR INHOUSE NEGATIVE (Negative)
== END 2023-11-20 16:36 | disposition home or self-care (01) ==
LOC: HO.HMGCLNP 16:35
PROVIDERS: Visit Provider Nurse Practitioner Primary Care
DX: Z11.52 Encounter for screening for COVID-19 (principal); Z20.822 Contact with and (suspected) exposure to COVID-19; J06.9 Acute upper respiratory infection, unspecified
CPT/HCPCS: 0241U

== ENCOUNTER 2024-07-03 12:07 | Outpatient (AMB) | payer MEDICARE, BC, SELFPAY ==
--- OUTSIDE RECORDS SUMMARY | 2024-07-03 12:09 | XMS_ITS | Continuity of Care Document ---
Author Organization [facility] Eduardo Dawson Durga lt Address [address] [place] [address]- Care Team Providers Care Slip Maker Name Role Phone Joanna VO, Miko Guillen Primary Care Physician [facility] Date(s): 05/16/21 - 05/23/21 [facility] Adult [address] [place] [address]- Attending Physician: Brenda Jackson NP Referring Physician: Miko Marshall MD Allergies, Adverse Reactions, Alerts Substance Reaction Severity Status Adhesive Bandage rash swelling Active Latex rash swelling Active Immunizations Given and Recorded Vaccine Date Status Refusal Reason SARS-CoV-2 (COVID-19) mRNA BNT-162b2 vac 11/16/20 Recorded SARS-CoV-2 (COVID-19) mRNA BNT-162b2 vac 10/26/20 Recorded Zoster Vaccine Live 07/06/20 Recorded Zoster Vaccine Live 07/01/20 Recorded zoster vaccine, inactivated 07/06/20 Recorded Influenza Virus Vaccine (oldterm) 06/17/20 Recorde d Influenza Virus Vaccine (oldterm) 06/13/20 Recorde d Influenza Virus Vaccine (oldterm) 05/18/19 Recorde d influenza virus vaccine, inactivated 05/24/18 Give n influenza virus vaccine, inactivated 05/23/17 Give n influenza virus vaccine, inactivated 1, 2 06/21/16 Recorded influenza virus vaccine, inactivated 06/22/15 Stan rded influenza virus vaccine, inactivated 05/21/14 Give n influenza virus vaccine, inactivated 3 05/26/13 Gi aubree influenza virus vaccine, inactivated 4 05/27/12 Gi aubree influenza virus vaccine, inactivated 5 06/27/11 Gi aubree influenza virus vaccine, inactivated 6 05/30/10 Gi aubree influenza virus vaccine, inactivated 7, 8 05/30/10 Given pneumococcal 13-valent vaccine 01/19/15 Given tetanus/diphtheria/pertussis, acel(Tdap) 07/13/11 Given Pneumococcal Vaccine (oldterm) 9 02/15/10 Given Pneumococcal Vaccine (oldterm) 09/17/04 Given Pneumococcal Vaccine (oldterm) 09/17/03 Given Zostavax (oldterm) 08/18/09 Given Influenza Inactive (IM) (oldterm) 05/26/09 Given Influenza Inactive (IM) (oldterm) 10 06/24/08 Give n tetanus-diphtheria toxoids (Td) 11 01/17/04 Given 1Location History: [facility] 2Result Comment: [06/23/2016] HIGH DOSE 3Admin Note: FLUARIX 4Admin Note: VIS GIVEN 5Admin Note: CDC info given to patient 6Admin Note: GIANCARLO 7Result Comment: OOP 8Admin Note: [facility] 9Admin Note: Information sheet given 10Admin Note: given in clinic 11Admin Note: historical data Medications Aerochamber See Instructions, # 1 each, Maintenance, use with albuterol inhaler., 11/25/20 9:56:00 EST, Supply,158, cm, 09/30/20 14:41:00 EST, Height Start Date: 11/25/20 Status: Ordered amLODIPine 5 mg oral tablet 5 mg, 1, tablet, By Mouth, Daily, DOSAGE INCREASE, # 90 tablet, Refills 1, Tot. Refills 1, Maintenance, 04/15/21 14:11:00 EDT, Route to Pharmacy Electronically, [facility]/pharmacy #[id number], Partial fill upon patient request if the prescription is for a schedul... Start Date: 04/15/21 Status: Ordered atorvastatin 10 mg oral tablet 0.5, By Mouth, Daily, # 45 tablet, 1 Refills, Maintenance, 10/16/20 11:28:00 EST, Tablet, [facility]/pharmacy #[id number], 158, cm, 09/30/20 14:41:00 EST, Height Start Date: 10/16/20 Status: Ordered Centrum Silver By Mouth, Daily, 0 Refills, Maintenance, 01/11/17 14:23:47 Start Date: 01/11/17 Status: Ordered chlorthalidone 25 mg oral tablet 25 mg, 1, tablet, By Mouth, Daily, Refills 0, Maintenance, 05/16/21 13:03:00 EDT, Partial fill uponpatient request if the prescription is for a schedule II opioid drug. Start Date: 05/16/21 Status: Ordered cloNIDine 0.2 mg oral tablet 0.2 mg, 1, tablet, By Mouth, 2 times a day, # 60 tablet, Refills 0, Tot. Refills 0, Maintenance, 05/20/21 11:04:00 EDT, Route to Pharmacy Electronically, [facility]/pharmacy #[id number], Partial fill upon patientrequest if the prescription is for a schedule II op... Start Date: 05/20/21 Status: Ordered levothyroxine 0.05 mg oral tablet 1 tablet, By Mouth, Daily, # 90 tablet, 1 Refills, Maintenance, 03/11/21 15:34:00 EDT, [facility] STORE [id number], 158, cm, 02/01/21 9:13:00 EDT, Height Start Date: 03/11/21 Status: Ordered LORazepam 0.5 mg oral tablet 1 tablet = 0.5 mg, By Mouth, Daily, PRN for anxiety, # 24 tablet, 1 Refills, Maintenance, 08/09/20 10:16:00 EST, Tablet, [facility]/pharmacy #[id number], 158, cm, 08/09/20 9:40:00 EST, Height Start Date: 08/09/20 Status: Ordered losartan 100 mg oral tablet 1 tablet, By Mouth, Daily, # 90 tablet, 1 Refills, Maintenance, 03/19/21 21:39:00 EDT, [facility] STORE [id number], 158, cm, 03/16/21 9:06:00 EDT, Height Start Date: 03/19/21 Status: Ordered magnesium oxide 500 mg oral tablet 1 tablet = 500 mg, By Mouth, Daily, 0 Refills, Maintenance, 06/28/18 10:06:58 EDT Start Date: 06/28/18 Status: Ordered melatonin 3 mg oral tablet 1 tablet = 3 mg, By Mouth, Daily at bedtime, 0 Refills, Maintenance, 08/09/20 10:01:00 EST, Partialfill upon patient request Start Date: 08/09/20 Status: Ordered pantoprazole 40 mg oral delayed release tablet 1 tablet = 40 mg, By Mouth, Daily, # 90 tablet, 0 Refills, Maintenance, 03/16/21 9:17:00 EDT, EC Tablet Start Date: 03/16/21 Status: Ordered ProAir HFA 90 mcg/inh inhalation aerosol with adapter 2, puffs, Inhalation, 4 times a day, PRN, NEW RX PER AFAY, # 3 each, Refills 1, Tot. Refills 1, Maintenance, 11/22/20 7:30:00 EST, Aerosol, Route to Pharmacy Electronically, [id number], [facility]/pharmacy #[id number], 158, cm, 09/30/20 1... Start Date: 11/22/20 Stop Date: 01/21/21 Status: Ordered Spiriva HandiHaler 18 mcg inhalation capsule 1 capsule, Inhalation, Daily, # 90 capsule, 1 Refills, Maintenance, 02/22/21 14:59:00 EDT, Pharmacy, 158, cm, 02/01/21 9:13:00 EDT, Height Start Date: 02/22/21 Status: Ordered Symbicort 160mcg/4.5mcg Inhaler 2, puffs, Inhalation, 2 times a day, 90 DAY SUPPLY, # 3 each, Refills 1, Tot. Refills 1, Maintenance, 01/04/21 11:06:00 EDT, Aerosol, Route to Pharmacy Electronically, [id number], [id number], 158, cm, 09/30/20 14:41:0... Start Date: 01/04/21 Status: Ordered Valtrex 500 mg oral tablet 500 mg, 1, tablet, By Mouth, Daily, # 30 tablet, Refills 11, Tot. Refills 11, Maintenance, 10/19/2111:02:00 EST, Route to Pharmacy Electronically, [id number], 158, cm, 09/30/20 14:41:00 EST,Height Start Date: 10/19/20 Status: Ordered Problem List Condition Effective Dates Status Health Status Inform ant Alcohol intake above recomme nded sensible limits without complication(Confirmed) Active Allergic rhinitis(Confirmed) Active Ascending aortic aneurysm(Confirmed) 1 Active Thoracic aortic aneurysm(Confirmed) 2 Active Chronic constipation(Confirmed) Active Colonoscopy(Confirmed) 3, 4 Active COPD (chronic obstructive pu lmonary disease)(Confirmed) Active Diverticulosis(Confirmed) 5 Active Epigastric pain(Confirmed) Active Gastroesophageal reflux dise ase with hiatal hernia(Confirmed) 6 Active Internal and external hemorr hoids without complication(Confirmed) 7 Active History of small bowel obstruction(Confirmed) 8 Active HTN (hypertension)(Confirmed) Active Hypercholesterolemia(Confirmed) Active Insomnia(Confirmed) Active Low back pain(Confirmed) Active Memory disorder(Confirmed) Active Migraine(Confirmed) Active Neck pain(Confirmed) Active Recurrent genital herpes simplex(Confirmed) Active Subclinical hypothyroidism(C onfirmed) 9 Active 1Ascending aortic aneurysm by chest CT measuring 4.1 [address] 2[address] scan 2016 90274; repeat 2028 4colo 2008 nl, repeat 2019 5colo 2018 6egd 2012 no barretts 7colo 2019 8Status post laparotomy with lysis of adhesions and repair of incarcerated ventral hernia. Surgery performed March 2018. 9Thyroid peroxidase antibody positive Vital Signs Most recent to oldest [Reference Range]: 1 Height 155 cm (05/16/21 12:39 PM) Weight 53.9 kg (05/16/21 12:39 PM) Oxygen Saturation [94-100 %] 97 % (05/16/21 12:39 PM) Pulse Rate [55-90 bpm] 53 bpm *L* (05/16/21 12:39 PM) Body Mass Index [18.5-24.99] 22.43 (05/16/21 12:39 PM) Blood Pressure [90-138/55-84 mm Hg] 110/ 68mm Hg (05/16/21 12:39 PM) Blood pressure sites Arm, left (05/16/21 12:39 PM) Social History Social History Type Response Smoking Status Former smoker; Other : quit 15 years ago; entered on: 03/16/16 Sex Female
--- OUTSIDE RECORDS SUMMARY | 2024-07-03 12:09 | XMS_ITS | Continuity of Care Document ---
Author Organization [facility] Eduardo Dawson Durga lt Address [address] [place] [address]- Care Team Providers Care Fish Peddler Name Role Phone Miko Farrell MD Primary Care Physician [facility]counter [facility] Date(s): 11/26/19 - 12/06/19 [facility] Eduardo Dawson Adult [address] [place] [address]- [facility] Attending Physician: Admtr, Max8 Admitting Physician: Admtr, Paco Referring Physician: Admtr, Ar8 Allergies, Adverse Reactions, Alerts Substance Reaction Severity Status Adhesive Bandage rash swelling Active Latex rash swelling Active Immunizations Given and Recorded Vaccine Date Status Refusal Reason Influenza Virus Vaccine (oldterm) 05/18/19 Recorde d [...] CDC info given to patient 6Admin Note: [facility] 7Result Comment: OOP 8Admin Note: [facility] 9Admin Note: Information sheet given 10Admin Note: given in clinic 11Admin Note: historical data Medications atorvastatin 10 mg oral tablet 0.5, By Mouth, Daily, # 45 tablet, 1 Refills, Maintenance, 10/14/19 10:36:00 EST, Tablet, [facility]/pharmacy #[id number], 158, cm, 05/22/19 10:37:00 EDT, Height, 57.6, kg, 05/21/18 14:53:00 EDT, Dry Weight Start Date: 10/14/19 Status: Ordered Centrum Silver By Mouth, Daily, 0 Refills, Maintenance, 01/11/17 14:23:47 Start Date: 01/11/17 Status: Ordered hydrochlorothiazide-triamterene 25 mg-37.5 mg oral capsule 1 capsule, By Mouth, Daily, # 90 capsule, 3 Refills, Maintenance, 09/24/18 11:48:51 EST, 1 capsule By Mouth Daily Start Date: 09/24/18 Status: Ordered Levoxyl 0.05 mg oral tablet 1 tablet = 50 mcg, By Mouth, Daily, # 90 tablet, 3 Refills, Maintenance, 09/24/18 11:50:18 EST, Tablet Start Date: 09/24/18 Stop Date: 09/19/19 Status: Ordered LORazepam 0.5 mg oral tablet 1 tablet = 0.5 mg, By Mouth, Daily, PRN for anxiety, , # 24 tablet, 1 Refills, Maintenance, 09/12/19 13:53:00 EST, Tablet, [facility]/pharmacy #[id number], 158, cm, 05/22/19 10:37:00 EDT, Height, 57.6, kg, 05/21/18 14:53:00 EDT, Dry Weight Start Date: 09/12/19 Status: Ordered losartan 100 mg oral tablet 1 tablet = 100 mg, By Mouth, Daily, please make OV within next 1-2 months for further refills., # 30 tablet, 1 Refills, Maintenance, 11/12/19 16:41:00 EST, Tablet, [facility]/pharmacy #[id number], 158, cm, 05/22/19 10:37:00 EDT, Height, 57.6, kg, 05/21/18 14:53:00... Start Date: 11/12/19 Status: Ordered magnesium oxide 500 mg oral tablet 1 tablet = 500 mg, By Mouth, Daily, 0 Refills, Maintenance, 06/28/18 10:06:58 EDT Start Date: 06/28/18 Status: Ordered physical therapy physical therapy, See Instructions, # 1 each, Refills 0, Tot. Refills 0, Maintenance, evaluate and treat for lbp, 12/17/18 14:49:23 EDT, Compound Start Date: 12/17/18 Status: Ordered ProAir HFA 90 mcg/inh inhalation aerosol with adapter 2, puffs, Inhalation, 4 times a day, PRN, NEW RX PER AFAY, # 3 each, Refills 1, Tot. Refills 1, Maintenance, 07/30/19 14:51:47 EST, Aerosol, Route to Pharmacy Electronically, [id number], [facility]/pharmacy #[id number] Start Date: 07/30/19 Status: Ordered Protonix 40 mg oral delayed release tablet 1 tablet = 40 mg, By Mouth, Daily, # 90 tablet, 0 Refills, Maintenance, 10/15/19 14:31:00 EST, 158,cm, 05/22/19 10:37:00 EDT, Height, 57.6, kg, 05/21/18 14:53:00 EDT, Dry Weight Start Date: 10/15/19 Stop Date: 01/13/20 Status: Ordered Shingrix intramuscular injection = 0.5 mL, Intramuscular, Once, repeat dose in 2 to 6 months, # 1 each, 1 Refills, Soft Stop, 10/17/19 11:04:00 EST, Powder, [facility]/pharmacy #[id number], 0.5 mL Intramuscular Once,Instr:repeat dose in 2 to 6 months, 158, cm, 05/22/19 10:37:00 EDT, Height, 57.6,... Start Date: 10/17/19 Status: Ordered Spiriva HandiHaler 18 mcg Inhalation Capsule 1 each = 18 mcg, Inhalation, Daily, PER DR FARRELL REFAXED, # 3 each, 3 Refills, Maintenance, 09/24/18 11:52:40 EST, 1 each Inhalation Daily,Instr:PER DR FARRELL; REFAXED Start Date: 09/24/18 Status: Ordered Symbicort 160mcg/4.5mcg Inhaler 2, puffs, Inhalation, 2 times a day, 90 DAY SUPPLY, # 3 each, Refills 1, Tot. Refills 1, Maintenance, 08/21/19 12:57:08 EST, Aerosol, Route to Pharmacy Electronically, [id number], [facility], 158, cm, 0... Start Date: 08/21/19 Status: Ordered valsartan 320 mg oral tablet 1 tablet = 320 mg, By Mouth, Daily, # 90 tablet, 3 Refills, Maintenance, 05/12/19 11:49:37 EDT, Tablet Start Date: 05/12/19 Status: Ordered Valtrex 500 mg oral tablet 500 mg, 1, tablet, By Mouth, Daily, # 30 tablet, Refills 11, Tot. Refills 11, Maintenance, 07/25/1811:27:07 EST, Route to Pharmacy Electronically, [id number], [facility]/pharmacy #[id number] Start Date: 07/25/18 Status: Ordered Problem List Condition Effective Dates Status Health Status Inform ant Alcohol intake above recomme nded sensible limits without complication(Confirmed) Active Allergic rhinitis(Confirmed) Active Thoracic aortic aneurysm(Confirmed) 1 Active Colonoscopy(Confirmed) 2, 3 Active COPD (chronic obstructive pu lmonary disease)(Confirmed) Active Diverticulosis(Confirmed) 4 Active Epigastric pain(Confirmed) Active Gastroesophageal reflux dise ase with hiatal hernia(Confirmed) 5 Active Internal and external hemorr hoids without complication(Confirmed) 6 Active HTN (hypertension)(Confirmed) Active Hypercholesterolemia(Confirmed) Active Insomnia(Confirmed) Active Low back pain(Confirmed) Active Memory disorder(Confirmed) Active Neck pain(Confirmed) Active Recurrent genital herpes simplex(Confirmed) Active Small bowel obstruction(Confirmed) 7 Active Subclinical hypothyroidism(C onfirmed) 8 Active 1CT scan 2015; repeat 2028 3colo 2008 nl, repeat 2018 4colo 2018 5egd 2012 no barretts 6colo 2018 7Status post laparotomy with lysis of adhesions and repair of incarcerated ventral hernia. Surgery performed March 2018. 8Thyroid peroxidase antibody positive Vital Signs Most recent to oldest [Reference Range]: 1 Blood Pressure [90-138/55-84 mm Hg] 168/ 94mm Hg *H* (02/19/17 9:37 AM) Social History Social History Type Response Smoking Status Former smoker; Other : quit 15 years ago; entered on: 03/16/16 Sex
--- OUTSIDE RECORDS SUMMARY | 2024-07-03 12:09 | XMS_ITS | Continuity of Care Document ---
Author Organization [facility] Address [address] [place] [address]- Care Team Providers Care Cognos Consultant Name Role Phone Miko Marshall MD Primary Care Physician [phone] Encounter [facility] [place] 09/22/21 - 10/22/21 [facility] [address] [place] [id number]- Attending Physician: Paco Anderson Admitting Physician: Paco Anderson Referring Physician: Paco Anderson Allergies, Adverse Reactions, Alerts Substance Reaction Severity Status Adhesive Bandage rash swelling Active Latex rash swelling Active Immunizations Given and Recorded Vaccine Date Status Refusal Reason tetanus-diphtheria toxoids (Td) 10/05/21 Given tetanus-diphtheria toxoids (Td) 1 01/17/04 Given SARS-CoV-2 (COVID-19) mRNA BNT-162b2 vac 07/02/21 Recorded SARS-CoV-2 (COVID-19) mRNA BNT-162b2 vac 11/16/20 Recorded SARS-CoV-2 (COVID-19) mRNA BNT-162b2 vac 10/26/20 Recorded influenza virus vaccine, inactivated 05/26/21 Stan rded influenza virus vaccine, inactivated 05/24/18 Give n influenza virus vaccine, inactivated 05/23/17 Give n influenza virus vaccine, inactivated 2, 3 06/21/16 Recorded influenza virus vaccine, inactivated 06/22/15 Stan rded influenza virus vaccine, inactivated 05/21/14 Give n influenza virus vaccine, inactivated 4 05/26/13 Gi aubree influenza virus vaccine, inactivated 5 05/27/12 Gi aubree influenza virus vaccine, inactivated 6 06/27/11 Gi aubree influenza virus vaccine, inactivated 7 05/30/10 Gi aubree influenza virus vaccine, inactivated 8, 9 05/30/10 Given Zoster Vaccine Live 07/06/20 Recorded Zoster Vaccine Live 07/01/20 Recorded zoster vaccine, inactivated 07/06/20 Recorded Influenza Virus Vaccine (oldterm) 06/17/20 Recorde d Influenza Virus Vaccine (oldterm) 06/13/20 Recorde d Influenza Virus Vaccine (oldterm) 05/18/19 Recorde d pneumococcal 13-valent vaccine 01/19/15 Given tetanus/diphtheria/pertussis, acel(Tdap) 07/13/11 Given Pneumococcal Vaccine (oldterm) 10 02/15/10 Given Pneumococcal Vaccine (oldterm) 09/17/04 Given Pneumococcal Vaccine (oldterm) 09/17/03 Given Zostavax (oldterm) 08/18/09 Given Influenza Inactive (IM) (oldterm) 05/26/09 Given Influenza Inactive (IM) (oldterm) 11 06/24/08 Give n 1Admin Note: historical data 2Location History: [facility] 3Result Comment: [06/23/2016] HIGH DOSE 4Admin Note: FLU[facility] 5Admin Note: VIS GIVEN 6Admin Note: [facility] info given to patient 7Admin Note: GIANCARLO 8Result Comment: OOP 9Admin Note: [facility] 10Admin Note: Information sheet given 11Admin Note: given in clinic Medications Aerochamber See Instructions, # 1 each, Maintenance, use with albuterol inhaler., 11/25/20 9:56:00 EST, Supply,158, cm, 09/30/20 14:41:00 EST, Height Start Date: 11/25/20 Status: Ordered amLODIPine 10 mg oral tablet 10 mg, 1, tablet, By Mouth, Daily, # 90 tablet, Refills 3, Tot. Refills 3, Maintenance, 09/02/21 9:38:00 EST, Route to Pharmacy Electronically, [facility]/pharmacy #[id number], Partial fill upon patient request if the prescription is for a schedule II opioid drug.... Start Date: 09/02/21 Status: Ordered atorvastatin 10 mg oral tablet 0.5 tablet, By Mouth, Daily, # 45 tablet, 1 Refills, [facility] STORE [id number], 155, cm, 05/16/21 12:39:00 EDT, Height Start Date: 06/07/21 Status: Ordered budesonide-formoterol 160 mcg-4.5 mcg/inh inhalation aerosol with adapter 2, puffs, Inhalation, 2 times a day, # 30.6 each, Refills 1, Route to Pharmacy Electronically, [id number], [id number], 155, cm, 05/16/21 12:39:00 EDT, Height Start Date: 06/25/21 Status: Ordered Centrum Silver By Mouth, Daily, 0 Refills, Maintenance, 01/11/17 14:23:47 Start Date: 01/11/17 Status: Ordered cloNIDine 0.1 mg oral tablet 0.1 mg, 1, tablet, By Mouth, 2 times a day, # 180 tablet, Refills 3, Tot. Refills 3, Maintenance, 09/02/21 9:38:00 EST, Route to Pharmacy Electronically, [facility]/pharmacy #[id number], Partial fill upon patientrequest if the prescription is for a schedule II op... Start Date: 09/02/21 Status: Ordered hydroCHLOROthiazide 12.5 mg oral capsule 1 capsule = 12.5 mg, By Mouth, Daily, # 90 capsule, 3 Refills, Maintenance, 10/19/21 11:02:00 EST, Capsule, [facility]/pharmacy #[id number], Partial fill upon patient request if the prescription is for a scheduleII opioid drug., 155, cm, 10/05/21 13:33:00 EST, He... Start Date: 10/19/21 Status: Ordered levothyroxine 0.05 mg oral tablet 1 tablet, By Mouth, Daily, # 90 tablet, 1 Refills, [facility], 155, cm, 08/05/21 11:25:00 EST,Height Start Date: 09/01/21 Status: Ordered LORazepam 0.5 mg oral tablet 1 tablet = 0.5 mg, By Mouth, Daily, PRN for anxiety, # 24 tablet, 1 Refills, Maintenance, 09/02/21 9:33:00 EST, Tablet, [facility]/pharmacy #[id number], 155, cm, 09/02/21 8:06:00 EST, Height Start Date: 09/02/21 Status: Ordered losartan 100 mg oral tablet 1 tablet, By Mouth, Daily, # 90 tablet, 0 Refills, [id number], 155, cm, 09/02/21 8:06:00 EST, Height Start Date: 09/19/21 Status: Ordered magnesium oxide 500 mg oral tablet 1 tablet = 500 mg, By Mouth, Daily, 0 Refills, Maintenance, 06/28/18 10:06:58 EDT Start Date: 06/28/18 Status: Ordered pantoprazole 40 mg oral delayed [...] 7:30:00 EST, Aerosol, Route to Pharmacy Electronically, [id number], [facility]/pharmacy #[id number], 158, cm, 09/30/20 1... Start Date: 11/22/20 Stop Date: 01/21/21 Status: Ordered Spiriva HandiHaler 18 mcg inhalation capsule 1 capsule, Inhalation, Daily, # 90 capsule, 1 Refills, Maintenance, 10/07/21 11:00:00 EST, [facility], 155, cm, 10/05/21 13:33:00 EST, Height Start Date: 10/07/21 Status: Ordered Valtrex 500 mg oral tablet 500 mg, 1, tablet, By Mouth, Daily, # 30 tablet, Refills 11, Tot. Refills 11, Maintenance, 10/19/2111:02:00 EST, Route to Pharmacy Electronically, [facility]/pharmacy #[id number], 158, cm, 09/30/20 14:41:00 EST,Height Start Date: 10/19/20 Status: Ordered Zinc = 140 mg, By Mouth, Daily, 0 Refills, Maintenance, 08/05/21 11:28:00 EST, Partial fill upon patientrequest if the prescription is for a schedule II opioid drug. Start Date: 08/05/21 Status: Ordered Problem List Condition Effective Dates [...] simplex(Confirmed) Active Subclinical hypothyroidism(C onfirmed) 9 Active Loss of weight(Confirmed) Active 1Ascending aortic aneurysm by chest CT measuring 4.[address] 2[address] scan 2016 14970; repeat 2028 4colo 2008 nl, repeat 2019 5colo 2019 6egd 2012 no barretts 7colo 2019 8Status post laparotomy with lysis of adhesions and repair of incarcerated ventral hernia. Surgery performed March 2018. 9Thyroid peroxidase antibody positive Social History Social History Type Response Smoking Status Former smoker; Other : quit 15 years ago; entered on: 03/16/16 Sex Female
--- OUTSIDE RECORDS SUMMARY | 2024-07-03 12:09 | XMS_ITS | Continuity of Care Document ---
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 Name Role Phone Miko Marshall MD Primary Care Physician [phone] [facility] - 12/15/21 [facility] Adult [address] [place] [address]- Allergies, Adverse Reactions, Alerts Substance Reaction Severity [...] n 1Admin Note: historical data 2Location History: [facility] 3Result Comment: [06/23/2016] HIGH DOSE 4Admin Note: FLUARIX 5Admin Note: VIS GIVEN 6Admin Note: [facility] info given to patient 7Admin Note: GAINCARLO 8Result Comment: OOP 9Admin Note: [facility] 10Admin [...] 09/02/21 9:38:00 EST, Route to Pharmacy Electronically, [facility]/pharmacy #[id number], Partial fill upon patient request if the prescription is for a schedule II opioid drug.... Start Date: 09/02/21 Status: Ordered atorvastatin 10 mg oral tablet 0.5 tablet, By Mouth, Daily, # 45 tablet, 1 Refills, [facility] STORE [facility]22, 155, cm, 05/16/21 12:39:00 EDT, Height Start Date: 06/07/21 Status: Ordered budesonide-formoterol 160 mcg-4.5 mcg/inh inhalation aerosol with adapter 2, puffs, Inhalation, 2 times a day, # 30.6 each, Refills 1, Route to Pharmacy Electronically, [id number], [facility], 155, cm, 05/16/21 12:39:00 EDT, Height Start Date: 06/25/21 Status: Ordered Centrum Silver By Mouth, Daily, 0 Refills, Maintenance, 01/11/17 14:23:47 Start Date: 01/11/17 Status: Ordered cloNIDine 0.1 mg oral tablet 0.1 mg, 1, tablet, By Mouth, 2 times a day, # 180 tablet, Refills 3, Tot. Refills 3, Maintenance, 09/02/21 9:38:00 EST, Route to Pharmacy Electronically, [facility]/pharmacy #[id number], Partial fill upon patientrequest if the prescription is for a schedule II op... Start Date: 09/02/21 Status: Ordered hydroCHLOROthiazide 12.5 mg oral capsule 1 capsule = 12.5 mg, By Mouth, Daily, # 90 capsule, 3 Refills, Maintenance, 10/19/21 11:02:00 EST, Capsule, [facility]/pharmacy #[id number], Partial fill upon patient request if the prescription is for a scheduleII opioid drug., 155, cm, 10/05/21 13:33:00 EST, He... Start Date: 10/19/21 Status: Ordered levothyroxine 0.05 mg oral tablet 1 tablet, By Mouth, Daily, # 90 tablet, 1 Refills, [facility]ORE 13271, 155, cm, 08/05/21 11:25:00 EST,Height Start Date: 09/01/21 Status: Ordered LORazepam 0.5 mg oral tablet 1 tablet = 0.5 mg, By Mouth, Daily, PRN for anxiety, # 24 tablet, 1 Refills, Maintenance, 09/02/21 9:33:00 EST, Tablet, [facility]/pharmacy #[id number], 155, cm, 09/02/21 8:06:00 EST, Height Start Date: 09/02/21 Status: Ordered losartan 100 mg oral tablet 1 tablet, By Mouth, Daily, # 90 tablet, 0 Refills, [facility], 155, cm, 09/02/21 8:06:00 EST, Height Start [...] 7:30:00 EST, Aerosol, Route to Pharmacy Electronically, [id number], [facility]/pharmacy #[id number], 158, cm, 09/30/20 1... Start Date: 11/22/20 Stop Date: 01/21/21 Status: Ordered Spiriva HandiHaler 18 mcg inhalation capsule 1 capsule, Inhalation, Daily, # 90 capsule, 1 Refills, Maintenance, 10/07/21 11:00:00 EST, [facility], 155, cm, 10/05/21 13:33:00 EST, Height Start Date: 10/07/21 Status: Ordered valACYclovir 500 mg oral tablet 1, tablet, By Mouth, Daily, # 30 tablet, Refills 11, Route to Pharmacy Electronically, [facility] STORE 18382, 155, cm, 10/05/21 13:33:00 EST, Height Start Date: 10/28/21 Status: Ordered Zinc = 140 mg, By [...] chest CT measuring 4.1 cm. 2CT scan 2015 30208; repeat 2028 4colo 2008 nl, repeat 2019 [...]
--- OUTSIDE RECORDS SUMMARY | 2024-07-03 12:09 | XMS_ITS | Continuity of Care Document ---
Author Organization [facility] Eduardo Dawson Durga lt Address [address] [place] [address]- Care Team Providers Care Gallery Assistant Name Role Phone Joanna VO, Miko Guillen Primary Care Physician [facility] 04[facility]/22 - 05/27/22 [facility] Adult [address] [place] [address]- Allergies, Adverse Reactions, Alerts Substance Reaction Severity [...] n 1Admin Note: historical data 2Location History: [facility] 3Result Comment: [06/23/2016] HIGH DOSE 4Admin Note: FLUARIX 5Admin Note: VIS GIVEN 6Admin Note: [facility] info given to patient 7Admin Note: GIANCARLO 8Result Comment: OOP 9Admin Note: [facility] 10Admin Note: Information sheet given 11Admin Note: given in clinic Medications Aerochamber See Instructions, # 1 each, Maintenance, use with albuterol inhaler., 11/25/20 9:56:00 EST, Supply,158, cm, 09/30/20 14:41:00 EST, Height Start Date: 11/25/20 Status: Ordered Albuterol (Eqv-ProAir HFA) 90 mcg/inh inhalation aerosol 2 puffs, Inhalation, 4 times a day, WHEN NEEDED FOR WHEEZING., # 25.5 each, 1 Refills, Maintenance,05/25/22 15:32:00 EDT, [facility] STORE 41466, 75, INHALE 2 PUFFS 4 TIMES A DAY WHEN NEEDED FOR WHEEZING, 155, cm, 04/27/22 14:46:00 EDT, Height, 52.25, kg, 0... Start Date: 05/25/22 Status: Ordered amLODIPine 10 mg oral tablet 10 mg, 1, tablet, By Mouth, Daily, # 90 tablet, Refills 3, Tot. Refills 3, Maintenance, 09/02/21 9:38:00 EST, Route to Pharmacy Electronically, [facility]/pharmacy #[id number], Partial fill upon patient request if the prescription is for a schedule II opioid drug.... Start Date: 09/02/21 Status: Ordered atorvastatin 10 mg oral tablet 0.5 tablet, By Mouth, Daily, # 45 tablet, 3 Refills, 04/10/22 13:41:00 EDT, [facility]/pharmacy #[id number], 155, cm, 04/10/22 13:29:00 EDT, Height Start Date: 04/10/22 Status: Ordered budesonide-formoterol 160 mcg-4.5 mcg/inh inhalation aerosol with adapter 2, puffs, Inhalation, 2 times a day, # 30.6 each, Refills 1, Route to Pharmacy Electronically, [id number], [facility], 155, cm, 05/16/21 12:39:00 EDT, Height Start Date: 06/25/21 Status: Ordered Centrum Silver By Mouth, Daily, 0 Refills, Maintenance, 01/11/17 14:23:47 Start Date: 01/11/17 Status: Ordered cloNIDine 0.1 mg oral tablet 0.1 mg, 1, tablet, By Mouth, 2 times a day, # 180 tablet, Refills 3, Tot. Refills 3, Maintenance, 09/02/21 9:38:00 EST, Route to Pharmacy Electronically, [facility]/pharmacy #[id number], Partial fill upon patientrequest if the prescription is for a schedule II op... Start Date: 09/02/21 Status: Ordered hydroCHLOROthiazide 12.5 mg oral capsule 1 capsule = 12.5 mg, By Mouth, Daily, # 90 capsule, 3 Refills, Maintenance, 10/19/21 11:02:00 EST, Capsule, [facility]/pharmacy #[id number], Partial fill upon patient request if the prescription is for a scheduleII opioid drug., 155, cm, 10/05/21 13:33:00 EST, He... Start Date: 10/19/21 Status: Ordered levothyroxine 0.05 mg oral tablet See Instructions, TAKE 1 TABLET BY MOUTH EVERY DAY, # 90 tablet, 3 Refills, [facility], 155, cm, 04/10/22 13:29:00 EDT, Height Start Date: 04/10/22 Status: Ordered LORazepam 0.5 mg oral tablet 1 tablet = 0.5 mg, By Mouth, Daily, PRN for anxiety, # 24 tablet, 1 Refills, Maintenance, 09/02/21 9:33:00 EST, Tablet, [facility]/pharmacy #[id number], 155, cm, 09/02/21 8:06:00 EST, Height Start Date: 09/02/21 Status: Ordered losartan 100 mg oral tablet 1 tablet, By Mouth, Daily, # 90 tablet, 1 Refills, [facility] STORE 480[facility], 155, cm, 11/14/21 13:39:00 EST,Height Start Date: 01/13/22 Status: Ordered magnesium oxide 500 mg oral tablet 1 tablet = 500 mg, By Mouth, Daily, 0 Refills, Maintenance, 06/28/18 10:06:58 EDT Start Date: 06/28/18 Status: Ordered pantoprazole 40 mg oral delayed release tablet 1 tablet = 40 mg, By Mouth, Daily, # 90 tablet, 0 Refills, Maintenance, 03/16/21 9:17:00 EDT, EC Tablet Start Date: 03/16/21 Status: Ordered Spiriva HandiHaler 18 mcg inhalation capsule 1 capsule, Inhalation, Daily, # 90 capsule, 1 Refills, Maintenance, 05/18/22 12:36:00 EDT, [facility], Rx resent to [facility] as pt requested, 155, cm, 04/27/22 14:46:00 EDT, Height, 52.25, kg, 04/27/22 14:46:00 EDT, Dry Weight Start Date: 05/18/22 Status: Ordered tiZANidine 2 mg oral capsule 1 capsule = 2 mg, By Mouth, Every 8 hours, # 42 capsule, 0 Refills, Maintenance, 03/10/22 13:48:00 EDT, [facility]/pharmacy #[id number], Partial fill upon patient request if the prescription is for a schedule II opioid drug., 155, cm, 03/10/22 13:27:00 EDT, Height Start Date: 03/10/22 Stop Date: 03/24/22 Status: Ordered valACYclovir 500 mg oral tablet 1, tablet, By Mouth, Daily, # 30 tablet, Refills 11, Route to Pharmacy Electronically, [facility] STORE 07994, 155, cm, 10/05/21 13:33:00 EST, Height Start [...] COPD (chronic obstructive pu lmonary disease)(Confirmed) Active COVID-19(Confirmed) 5 04/27/22 Active Diverticulosis(Confirmed) 6 Active Epigastric pain(Confirmed) Active Gastroesophageal reflux dise ase with hiatal hernia(Confirmed) 7 Active Internal and external hemorr hoids without complication(Confirmed) 8 Active History of small bowel obstruction(Confirmed) 9 Active HTN (hypertension)(Confirmed) Active Hypercholesterolemia(Confirmed) Active Insomnia(Confirmed) Active Low back pain(Confirmed) Active Memory disorder(Confirmed) Active Migraine(Confirmed) Active Neck pain(Confirmed) Active Recurrent genital herpes simplex(Confirmed) Active Subclinical hypothyroidism(C onfirmed) 10 Active Loss of weight(Confirmed) Active 1Ascending aortic aneurysm by chest CT measuring 4.1 cm. 2CT scan 2015 93777; repeat 2028 4colo 2009 nl, repeat 2019 5Problem added by Discern Expert 6colo 2019 7egd 2011 no barretts 8colo 2018 9Status post laparotomy with lysis of adhesions and repair of incarcerated ventral hernia. Surgery performed March 2018. 10Thyroid peroxidase antibody positive Social History Social History Type Response Smoking Status Former smoker; Other : quit 15 years ago; entered on: 03/16/16 Sex Female Care Team Personnel Name: Joanna VO, Miko Guillen Address: [address] [place] [id number]- [place]
--- OUTSIDE RECORDS SUMMARY | 2024-07-03 12:09 | XMS_ITS | Continuity of Care Document ---
Author Organization [facility] Samir Durga Address [address] [place] [address]- Care Team Providers Care Clinical Audiologist Name Role Phone Joanna VO, Miko Guillen Primary Care Physician [phone] [facility]): 08[facility]23 - 09/01/23 [facility] Adult [address] [place] [address]- Attending Physician: Jocelyn Snyder Kulwinder Allergies, Adverse Reactions, Alerts Substance Reaction Severity Status Adhesive Bandage rash swelling Active Latex rash swelling Active Immunizations Given and Recorded Vaccine Date Status Refusal Reason influenza virus vaccine, inactivated 1 06/29/23 Gi aubree influenza virus vaccine, inactivated 06/12/22 Give n influenza virus vaccine, inactivated 05/26/21 Stan rded [...] virus vaccine, inactivated 7 05/30/10 Gi aubree pneumococcal 20-valent conjugate vaccine 01/19/23 Given tetanus-diphtheria toxoids (Td) 10/05/21 Given tetanus-diphtheria toxoids (Td) 8 01/17/04 Given SARS-CoV-2 (COVID-19) mRNA BNT-162b2 vac [...] Inactive (IM) (oldterm) 10 06/24/08 Give n 1Result Comment: [facility]: [id number] [facility] 3Result Comment: [06/23/2016] HIGH DOSE 4Admin Note: FLUARIX 5Admin Note: VIS GIVEN 6Admin Note: [facility] info given to patient 7Admin Note: [facility] 8Admin Note: historical data 9Admin Note: Information sheet given 10Admin Note: given in clinic Medications Aerochamber See Instructions, # 1 each, Maintenance, use with albuterol inhaler., 11/25/20 9:56:00 EST, Supply,158, cm, 09/30/20 14:41:00 EST, Height Start Date: 11/25/20 Status: Ordered Albuterol (Eqv-ProAir HFA) 90 mcg/inh inhalation aerosol 2 puffs, Inhalation, 4 times a day, WHEN NEEDED FOR WHEEZING., # 25.5 each, 1 Refills, Maintenance,05/25/22 15:32:00 EDT, [facility], 75, INHALE 2 PUFFS 4 TIMES A DAY WHEN NEEDED FOR WHEEZING, 155, cm, 04/27/22 14:46:00 EDT, Height, 52.25, kg, 0... Start Date: 05/25/22 Status: Ordered amLODIPine 10 mg oral tablet 10 mg, 1, tablet, By Mouth, Daily, # 90 tablet, Refills 3, Tot. Refills 3, Maintenance, 11/22/22 16:38:00 EST, Route to Pharmacy Electronically, [facility]/pharmacy #[id number], Partial fill upon patient request if the prescription is for a schedule II opioid drug... Start Date: 11/22/22 Status: Ordered aspirin 81 mg oral delayed release tablet 81 mg, 1, tablet, By Mouth, Daily, # 90 tablet, Refills 0, Maintenance, 02/21/23 10:47:00 EDT, Partial fill upon patient request if the prescription is for a schedule II opioid drug. Start Date: 02/21/23 Status: Ordered atorvastatin 10 mg oral tablet 0.5 tablet, By Mouth, Daily, # 45 tablet, 6 Refills, Maintenance, 06/29/23 15:09:00 EDT, [facility]/pharmacy #[id number], 155, cm, 06/29/23 14:50:00 EDT, Height, 52.25, kg, 04/27/22 14:46:00 EDT, Dry Weight Start Date: 06/29/23 Status: Ordered budesonide-formoterol 160 mcg-4.5 mcg/inh inhalation aerosol with adapter 2, puffs, Inhalation, 2 times a day, # 30.6 each, Refills 1, Maintenance, 08/29/23 5:44:00 EST, Route to Pharmacy Electronically, [id number], [facility], 155, cm, 08/27/23 8:53:00 EST, Height, 52.25, kg, 04/27/22 14:46:0... Start Date: 08/29/23 Status: Ordered Centrum Silver By Mouth, Daily, 0 Refills, Maintenance, 01/11/17 14:23:47 Start Date: 01/11/17 Status: Ordered chlorthalidone 25 mg oral tablet 12.5 mg, 0.5, tablet, By Mouth, Daily, # 15 tablet, Refills 0, Maintenance, 01/26/23 10:54:00 EDT, Partial fill upon patient request if the prescription is for a schedule II opioid drug. Start Date: 01/26/23 Status: Ordered famotidine 20 mg oral tablet 20 mg, 1, tablet, By Mouth, Daily at bedtime, # 30 tablet, Refills 0, Maintenance, 02/21/23 10:48:00 EDT, Partial fill upon patient request if the prescription is for a schedule II opioid drug. Start Date: 02/21/23 Status: Ordered fluticasone 50 mcg/inh nasal spray 1 sprays, Nares, Both, 2 times a day, # 16 Gm, 11 Refills, Maintenance, 06/29/23 15:10:00 EDT, [place], [facility]/pharmacy #[id number], Partial fill upon patient request if the prescription is for a scheduleII opioid drug., 1 sprays Nares, Both 2 times a day... Start Date: 06/29/23 Status: Ordered hydroCHLOROthiazide 12.5 mg oral capsule 1 capsule, By Mouth, Daily, # 90 capsule, 3 Refills, Maintenance, 12/28/22 7:50:00 EDT, [facility], 155, cm, 10/16/22 12:48:00 EST, Height, 52.25, kg, 04/27/22 14:46:00 EDT, Dry Weight Start Date: 12/28/22 Status: Ordered levothyroxine 0.05 mg oral tablet 1 tablet, By Mouth, Daily, # 90 tablet, 0 Refills, Maintenance, 08/29/23 5:44:00 EST, [facility], 155, cm, 08/27/23 8:53:00 EST, Height, 52.25, kg, 04/27/22 14:46:00 EDT, Dry Weight Start Date: 08/29/23 Status: Ordered LORazepam 0.5 mg oral tablet 1 tablet = 0.5 mg, By Mouth, Daily, PRN for anxiety, # 24 tablet, 1 Refills, Maintenance, 10/18/22 10:48:00 EST, Tablet, [id number], 155, cm, 10/16/22 12:48:00 EST, Height, 52.25, kg, 04/27/22 14:46:00 EDT, Dry Weight Start Date: 10/18/22 Status: Ordered losartan 100 mg oral tablet 1 tablet, By Mouth, Daily, # 90 tablet, 3 Refills, Maintenance, 11/22/22 16:38:00 EST, [facility], 155, cm, 10/16/22 12:48:00 EST, Height, 52.25, kg, 04/27/22 14:46:00 EDT, Dry Weight Start Date: 11/22/22 Status: Ordered magnesium oxide 500 mg oral tablet 1 tablet = 500 mg, By Mouth, Daily, 0 Refills, Maintenance, 06/28/18 10:06:58 EDT Start Date: 06/28/18 Status: Ordered omeprazole 20 mg oral enteric coated capsule 1 capsule = 20 mg, By Mouth, Daily, # 90 capsule, 0 Refills, Maintenance, 08/03/23 9:45:00 EST, EC Capsule, [facility]/pharmacy #[id number], Partial fill upon patient request if the prescription is for a scheduleII opioid drug., 155, cm, 08/02/23 13:40:00 EST, He... Start Date: 08/03/23 Status: Ordered omeprazole 20 mg oral enteric coated capsule 1 capsule = 20 mg, By Mouth, 2 times a day, ONE CAPSULE BY MOUTH TWICE A DAY, # 60 capsule, 0 Refills, Maintenance, 08/30/23 16:15:00 EST, [facility]/pharmacy #[id number], Partial fill upon patient request if theprescription is for a schedule II opioid drug., 155... Start Date: 08/30/23 Status: Ordered Spiriva HandiHaler 18 mcg inhalation capsule 1 capsule, Inhalation, Daily, # 90 capsule, 1 Refills, Maintenance, 03/21/23 12:14:00 EDT, [facility], 155, cm, 02/21/23 10:28:00 EDT, Height, 52.25, kg, 04/27/22 14:46:00 EDT,Dry Weight Start Date: 03/21/23 Status: Ordered valACYclovir 500 mg oral tablet 1, tablet, By Mouth, Daily, # 30 tablet, Refills 11, Maintenance, 12/22/22 9:50:00 EDT, Route to Pharmacy Electronically, [facility] STORE 79233, 155, cm, 10/16/22 12:48:00 EST, Height, 52.25, kg, 04/27/22 14:46:00 EDT, Dry Weight Start Date: 12/22/22 Status: Ordered Zinc = 140 mg, By Mouth, Daily, 0 Refills, Maintenance, 08/05/21 11:28:00 EST, Partial fill upon patientrequest if the prescription is for a schedule II opioid drug. Start Date: 08/05/21 Status: Ordered Problem List Condition Confirmation Course Effective Dates Status Health Status Informant Alcohol intake above recommended sensible limits without complication Confirmed Active Allergic rhinitis Confirmed Active Ascending aortic aneurysm 1 Confirmed Active Thoracic aortic aneurysm 2 Confirmed Active Chronic constipation Confirmed Active Colonoscopy 3, 4 Confirmed Active COPD (chronic obstructive pulmonary disease) Confirmed Active COVID-19 5 Confirmed 04/27/22 Active Diverticulosis 6 Confirmed Active Epigastric pain Confirmed Active Gastroesophageal reflux disease with hiatal hernia 7 Confirmed Active Internal and external hemorrhoids without complication 8 Confirmed Active History of small bowel obstruction 9 Confirmed Active HTN (hypertension) Confirmed Active Hypercholesterolemia Confirmed Active Insomnia Confirmed Active Low back pain Confirmed Active Memory disorder Confirmed Active Migraine Confirmed Active Neck pain Confirmed Active Recurrent genital herpes simplex Confirmed Active Subclinical hypothyroidism 10 Confirmed Active Loss of weight Confirmed Active 1Ascending aortic aneurysm by chest CT measuring 4.[address] 2[address] scan 2015 89637; repeat 2028 4colo 2008 nl, repeat 2018 5Problem added by Discern Expert 6colo 2018 7egd 2012 no barretts 8colo 2018 9Status post laparotomy with lysis of adhesions and repair of incarcerated ventral hernia. Surgery performed March 2018. 10Thyroid peroxidase antibody positive Social History Social History Type Response Smoking Status Former smoker; Other : quit 15 years ago; entered on: 03/16/16 Sex Female Patient Care team information Care Team Personnel Name: Maria G Mendez RN Position: S RN Member Role: Primary Care Nurse Name: Barby Frias Position: [facility] Outreach Member Role: Lifetime Consulting Physician Name: Miko Marshall MD Position: [facility] Physician - Primary Care Member Role: PCP Address: Address: [address] [place] [id number]- Name: Zachary Biswas MD Position: [facility] Renal MD Member Role: Lifetime Consulting Physician Address: Address: [address] [facility] [facility] [address] [facility] [place] [place] [address]- Name: Sridhar De Leon RN Position: [facility] RN Member Role: Primary Care Nurse Care Team Related Persons Name: MU CONTRERAS Address: [place] [address] Name: SHANELL COBIAN Address: [address] [address]
--- OUTSIDE RECORDS SUMMARY | 2024-07-03 12:09 | XMS_ITS | Continuity of Care Document ---
Author Organization [facility] Eduardo Dawson Durga lt Address [address] [place] [address]- Care Team Providers Care Manager Medical Device Name Role Phone Miko Marshall MD Primary Care Physician [facility] - 12[facility]15[facility]21 [facility] Adult [address] [place] [address]- Allergies, Adverse Reactions, Alerts Substance Reaction Severity [...] n 1Admin Note: historical data 2Location History: [facility] 3Result Comment: [06/23/2016] HIGH DOSE 4Admin Note: FLUARIX 5Admin Note: VIS GIVEN 6Admin Note: [facility] info given to patient 7Admin Note: GIANCARLO [...] 09/02/21 9:38:00 EST, Route to Pharmacy Electronically, [facility]/pharmacy #[id number], Partial fill upon patient request if the prescription is for a schedule II opioid drug.... Start Date: 09/02/21 Status: Ordered atorvastatin 10 mg oral tablet 0.5 tablet, By Mouth, Daily, # 45 tablet, 1 Refills, [facility] 27241, 155, cm, 05/16/21 12:39:00 EDT, Height Start Date: 06/07/21 Status: Ordered budesonide-formoterol 160 mcg-4.5 mcg/inh inhalation aerosol with adapter 2, puffs, Inhalation, 2 times a day, # 30.6 each, Refills 1, Route to Pharmacy Electronically, [id number], [facility], 155, cm, 05/16/21 12:39:00 EDT, Height Start Date: 06/25/21 Status: Ordered Centrum Silver By Mouth, Daily, 0 Refills, Maintenance, 01/11/17 14:23:47 Start Date: 01/11/17 Status: Ordered cloNIDine 0.1 mg oral tablet 0.1 mg, 1, tablet, By Mouth, 2 times a day, # 180 tablet, Refills 3, Tot. Refills 3, Maintenance, 09/02/21 9:38:00 EST, Route to Pharmacy Electronically, [facility]/pharmacy #[id number], Partial fill upon patientrequest if the prescription is for a schedule II op... Start Date: 09/02/21 Status: Ordered hydroCHLOROthiazide 12.5 mg oral capsule 1 capsule = 12.5 mg, By Mouth, Daily, # 90 capsule, 3 Refills, Maintenance, 10/19/21 11:02:00 EST, Capsule, [facility]/pharmacy #[id number], Partial fill upon patient request if the prescription is for a scheduleII opioid drug., 155, cm, 10/05/21 13:33:00 EST, He... Start Date: 10/19/21 Status: Ordered levothyroxine 0.05 mg oral tablet 1 tablet, By Mouth, Daily, # 90 tablet, 1 Refills, [facility] ST[facility]86, 155, cm, 08/05/21 11:25:00 EST,Height Start Date: 09/01/21 Status: Ordered LORazepam 0.5 mg oral tablet 1 tablet = 0.5 mg, By Mouth, Daily, PRN for anxiety, # 24 tablet, 1 Refills, Maintenance, 09/02/21 9:33:00 EST, Tablet, [facility]/pharmacy #[id number], 155, cm, 09/02/21 8:06:00 EST, Height Start Date: 09/02/21 Status: Ordered losartan 100 mg oral tablet 1 tablet, By Mouth, Daily, # 90 tablet, 0 Refills, [facility], 155, cm, 09/02/21 8:06:00 EST, Height Start [...] 7:30:00 EST, Aerosol, Route to Pharmacy Electronically, [id number], [facility]/pharmacy #[id number], 158, cm, 09/30/20 1... Start Date: 11/22/20 Stop Date: 01/21/21 Status: Ordered Spiriva HandiHaler 18 mcg inhalation capsule 1 capsule, Inhalation, Daily, # 90 capsule, 1 Refills, Maintenance, 10/07/21 11:00:00 EST, [facility], 155, cm, 10/05/21 13:33:00 EST, Height Start Date: 10/07/21 Status: Ordered valACYclovir 500 mg oral tablet 1, tablet, By Mouth, Daily, # 30 tablet, Refills 11, Route to Pharmacy Electronically, [facility] 13143, 155, cm, 10/05/21 13:33:00 EST, Height Start [...] CT measuring 4.1 cm. 2CT scan 2015 13943; repeat 2028 4colo 2008 nl, repeat 2019 [...]
--- OUTSIDE RECORDS SUMMARY | 2024-07-03 12:09 | XMS_ITS | Continuity of Care Document ---
Author Organization [facility] Eduardo Dawson Durga lt Address [address] [place] [phone]- Care Team Providers Care Compound Finisher Name Role Phone Miko Farrell MD Primary Care Physician Encounter [facility] Date(s): 12/26/19 - 01/02/20 [facility] Eduardo Dawson Adult [address] [place] [address]- [facility] Encounter Diagnosis Alcohol intake above recommended sensible limits without complication(Discharge Diagnosis) - 12/26/19 COPD (chronic obstructive pulmonary disease)(Discharge Diagnosis) - 12/26/19 Gastroesophageal reflux disease with hiatal hernia(Discharge Diagnosis) - 12/26/19 HTN (hypertension)(Discharge Diagnosis) - 12/26/19 Hypercholesterolemia(Discharge Diagnosis) - 12/26/19 Insomnia(Discharge Diagnosis) - 12/26/19 Recurrent genital herpes simplex(Discharge Diagnosis) - 12/26/19 Subclinical hypothyroidism(Discharge Diagnosis) - 12/26/19 Attending Physician: Miko Farrell MD Allergies, Adverse Reactions, Alerts Substance Reaction [...] 1 Refills, Maintenance, 10/14/19 10:36:00 EST, Tablet, [facility]/pharmacy #[id number], 158, cm, 05/22/19 10:37:00 EDT, Height, 57.6, kg, 05/21/18 14:53:00 EDT, Dry Weight Start Date: 10/14/19 Status: Ordered Centrum Silver By Mouth, Daily, 0 Refills, Maintenance, 01/11/17 14:23:47 Start Date: 01/11/17 Status: Ordered hydrochlorothiazide-triamterene 25 mg-37.5 mg oral capsule 1 capsule, By Mouth, Daily, Please call to schedule a follow up office visit., # 90 capsule, 0 Refills, Maintenance, 12/23/19 8:38:00 EDT, [facility]/pharmacy #[id number], 1 capsule By Mouth Daily,Instr:Please call to schedule a follow up office visit., 158, cm, 0... Start Date: 12/23/19 Status: Ordered levothyroxine 0.05 mg oral tablet 1 tablet, By Mouth, Daily, # 90 tablet, 0 Refills, Maintenance, 12/19/19 9:09:00 EDT, [facility] STORE [facility], 158, cm, 05/22/19 10:37:00 EDT, Height, 57.6, kg, 05/21/18 14:53:00 EDT, Dry Weight Start Date: 12/19/19 Status: Ordered LORazepam 0.5 mg oral tablet 1 tablet = 0.5 mg, By Mouth, Daily, PRN for anxiety, , # 24 tablet, 1 Refills, Maintenance, 09/12/19 13:53:00 EST, [id number], cm, 05/22/19 10:37:00 EDT, Height, 57.6, kg, 05/21/18 14:53:00 EDT, Dry Weight Start Date: 09/12/19 Status: Ordered losartan 100 mg oral tablet 1 tablet = 100 mg, By Mouth, Daily, please make OV within next 1-2 months for further refills., # 30 tablet, 1 Refills, Maintenance, 11/12/19 16:41:00 EST, Tablet, [id number] 158, cm, 05/22/19 10:37:00 EDT, Height, 57.6, kg, 05/21/18 14:53:00... Start Date: 11/12/19 Status: Ordered magnesium oxide 500 mg oral tablet 1 tablet = 500 mg, By Mouth, Daily, 0 Refills, Maintenance, 06/28/18 10:06:58 EDT Start Date: 06/28/18 Status: Ordered ProAir HFA 90 mcg/inh inhalation aerosol with adapter 2, puffs, Inhalation, 4 times a day, PRN, NEW RX PER AFAY, # 3 each, Refills 1, Tot. Refills 1, Maintenance, 07/30/19 14:51:47 EST, Aerosol, Route to Pharmacy Electronically, [id number], [facility]/pharmacy #[id number] Start Date: 07/30/19 Status: Ordered Spiriva HandiHaler 18 mcg Inhalation [...] 12:57:08 EST, Aerosol, Route to Pharmacy Electronically, [id number], [facility], 158, cm, 0... Start Date: 08/21/19 [...] Maintenance, 07/25/1811:27:07 EST, Route to Pharmacy Electronically, [id number], [facility]/pharmacy #[id number] Start Date: 07/25/18 Status: Ordered Problem [...] 2015; repeat 2028 3colo 2008 nl, repeat 2019 4colo 2018 5egd 2012 no barretts 6colo 2018 7Status post laparotomy with lysis of adhesions and repair of incarcerated ventral hernia. Surgery performed March 2018. 8Thyroid peroxidase antibody positive Diagnosis Diagnosis Type Effective Dates Health Status Clinical Service Informant Alcohol intake above recommended sensible limits without complication Discharge Diagnosis 12/26/19 COPD (chronic obstructive pulmonary disease) Discharge Diagnosis 12/26/19 Gastroesophageal reflux disease with hiatal hernia Discharge Diagnosis 12/26/19 HTN (hypertension) Discharge Diagnosis 12/26/19 Hypercholesterolemia Discharge Diagnosis 12/26/19 Insomnia Discharge Diagnosis 12/26/19 Recurrent genital herpes simplex Discharge Diagnosis 12/26/19 Subclinical hypothyroidism Discharge Diagnosis 12/26/19 Social History Social History Type Response Smoking Status Former smoker; Other : quit 15 years ago; entered on: 03/16/16 Sex
--- OUTSIDE RECORDS SUMMARY | 2024-07-03 12:09 | XMS_ITS | Continuity of Care Document ---
Author Organization [facility] Samir Durga lt Address [address] [place] [address]- Care Team Providers Care Furnace Builder Name Role Phone Miko Marshall MD Primary Care Physician [phone] Encounter [facility] Date(s): 12/03/23 - 01/02/24 [facility] Adult [address] [place] [address]- Allergies, Adverse Reactions, Alerts Substance Reaction Severity [...] (oldterm) 10 06/24/08 Give n 1Result Comment: [facility]: [id number] [facility] 3Result Comment: [06/23/2016] HIGH DOSE 4Admin Note: FLUARIX 5Admin Note: VIS GIVEN 6Admin Note: CDC info given to patient 7Admin Note: [facility] 8Admin Note: historical data 9Admin Note: Information sheet given 10Admin Note: given in clinic Medications Aerochamber See Instructions, # 1 each, Maintenance, use with albuterol inhaler., 11/25/20 9:56:00 EST, Supply,158, cm, 09/30/20 14:41:00 EST, Height Start Date: 11/25/20 Status: Ordered amLODIPine 10 mg oral tablet 1 tablet, By Mouth, Daily, # 90 tablet, 1 Refills, Maintenance, 12/22/23 8:21:00 EDT, [facility]/pharmacy #[id number], 155, cm, 10/12/23 16:44:00 EST, Height, 52.25, kg, 04/27/22 14:46:00 EDT, Dry Weight Start Date: 12/22/23 Status: Ordered aspirin 81 mg oral delayed [...] tablet, 6 Refills, Maintenance, 06/29/23 15:09:00 EDT, [facility]/pharmacy #[id number], 155, cm, 06/29/23 14:50:00 EDT, Height, 52.25, kg, 04/27/22 14:46:00 EDT, Dry Weight Start Date: 06/29/23 Status: Ordered budesonide-formoterol 160 mcg-4.5 mcg/inh inhalation aerosol with adapter 2, puffs, Inhalation, 2 times a day, # 30.6 each, Refills 11, Tot. Refills 11, Maintenance, 11/20/23 9:54:00 EST, Route to Pharmacy Electronically, [id number], [facility]/pharmacy #[id number], 155, cm, 10/12/23 16:44:00 EST, Height, 52.25... Start Date: 11/20/23 Status: Ordered Centrum Silver By Mouth, Daily, 0 Refills, Maintenance, 01/11/17 14:23:47 Start Date: 01/11/17 Status: Ordered chlorthalidone 25 mg oral tablet 12.5 mg, 0.5, tablet, By Mouth, Daily, # 15 tablet, Refills 0, Maintenance, 01/26/23 10:54:00 EDT, Partial fill upon patient request if the prescription is for a schedule II opioid drug. Start Date: 01/26/23 Status: Ordered Compression Stockings See Instructions, # 1 each, Refills 1, Tot. Refills 1, Maintenance, surgical, calf length 20-30 mm Hg, 10/12/23 16:47:00 EST, Supply Start Date: 10/12/23 Status: Ordered famotidine 20 mg oral tablet 20 mg, 1, tablet, By Mouth, 2 times a day, # 60 tablet, Refills 11, Tot. Refills 11, Maintenance, 09/28/23 13:34:00 EST, [id number] fill upon patient request if the prescription is for a schedule II o... Start Date: 09/28/23 Stop Date: 09/22/24 Status: Ordered fluticasone 50 mcg/inh nasal spray 1 sprays, Nares, Both, 2 times a day, # 16 Gm, 11 Refills, Maintenance, 06/29/23 15:10:00 EDT, Nasal [place], [facility]/pharmacy #[id number], Partial fill upon patient request if the prescription is for a scheduleII opioid drug., 1 sprays Nares, Both 2 times a day... Start Date: 06/29/23 Status: Ordered hydroCHLOROthiazide 12.5 mg oral capsule 1 capsule, By Mouth, Daily, # 90 capsule, 3 Refills, Maintenance, 12/28/22 7:50:00 EDT, [facility], 155, cm, 10/16/22 12:48:00 EST, Height, 52.25, kg, 04/27/22 14:46:00 EDT, Dry Weight Start Date: 12/28/22 Status: Ordered levothyroxine 0.05 mg oral tablet 1 tablet, By Mouth, Daily, # 90 tablet, 0 Refills, Maintenance, 11/26/23 9:51:00 EDT, [facility], 155, cm, 10/12/23 16:44:00 EST, Height, 52.25, kg, 04/27/22 14:46:00 EDT, Dry Weight Start Date: 11/26/23 Status: Ordered LORazepam 0.5 mg oral tablet 1 tablet = 0.5 mg, By Mouth, Daily, PRN for anxiety, # 24 tablet, 1 Refills, Maintenance, 12/11/23 9:46:00 EDT, Tablet, [facility]/pharmacy #[id number], 155, cm, 10/12/23 16:44:00 EST, Height, 52.25, kg, 04/27/2214:46:00 EDT, Dry Weight Start Date: 12/11/23 Status: Ordered losartan 100 mg oral tablet 1 tablet, By Mouth, Daily, # 90 tablet, 1 Refills, Maintenance, 12/22/23 8:20:00 EDT, [facility]/pharmacy #[id number], 155, cm, 10/12/23 16:44:00 EST, Height, 52.25, kg, 04/27/22 14:46:00 EDT, Dry Weight Start Date: 12/22/23 Status: Ordered magnesium oxide 500 mg oral tablet 1 tablet = 500 mg, By Mouth, Daily, 0 Refills, Maintenance, 06/28/18 10:06:58 EDT Start Date: 06/28/18 Status: Ordered Spiriva HandiHaler 18 mcg inhalation capsule 1 capsule, Inhalation, Daily, # 90 capsule, 4 Refills, Maintenance, 11/20/23 9:54:00 EST, [facility]/pharmacy #[id number], 155, cm, 10/12/23 16:44:00 EST, Height, 52.25, kg, 04/27/22 14:46:00 EDT, Dry Weight Start Date: 11/20/23 Status: Ordered valACYclovir 500 mg oral tablet 1, tablet, By Mouth, Daily, # 30 tablet, Refills 11, Maintenance, 12/22/22 9:50:00 EDT, Route to Pharmacy Electronically, [facility] STORE 63027, 155, cm, 10/16/22 12:48:00 EST, Height, 52.25, kg, 04/27/22 14:46:00 EDT, Dry Weight Start Date: 12/22/22 Status: Ordered Ventolin HFA 108 mcg/inh inhalation aerosol with adapter 2 puffs, Inhalation, Every 6 hours, PRN for wheezing, # 8 Gm, 11 Refills, Maintenance, 11/20/23 9:54:00 EST, Aerosol, [facility]/pharmacy #[id number], Partial fill upon patient request if the prescription is for a schedule II opioid drug., 155, cm, 10/12/23 16:44:... Start Date: 11/20/23 Status: Ordered Zinc = 140 mg, By [...] Active Hypercholesterolemia Confirmed Active Insomnia Confirmed Active Elevated liver function tests Confirmed Active Low back pain Confirmed Active Memory disorder Confirmed Active Migraine Confirmed Active Neck pain Confirmed Active Recurrent genital herpes simplex Confirmed Active Subclinical hypothyroidism 10 Confirmed Active Loss of weight Confirmed Active 1Ascending aortic aneurysm by chest CT measuring 4.1 [address]. 2CT scan 2016 77417; repeat 2028 4colo 2009 nl, repeat 2019 5Problem added by Discern Expert 6colo 2018 [...] Personnel Name: Maria G Mendez RN Position: [facility] RN Member Role: Primary Care Nurse Name: Barby Frias Position: [facility] Outreach Member Role: Lifetime Consulting Physician Name: Joanna VO, Miko Guillen Position: [facility] Physician - Primary Care Member Role: PCP Address: Address: [address] [place] [address]- Name: Zachary Biswas MD Position: [facility] Renal MD Member Role: Lifetime Consulting Physician Address: Address: [address] [place] [address] [address] [facility] [place] [address]- [place] Name: Sridhar De Leon RN Position: [facility] RN Member Role: Primary Care Nurse Care Team Related Persons Name: MU CONTRERAS Address: [place] [address] Name: SHANELL COBIAN Address: [address] [address]
--- OUTSIDE RECORDS SUMMARY | 2024-07-03 12:09 | XMS_ITS | Continuity of Care Document ---
Author Organization [facility] Eduardo Dawson Durga lt Address [address] [place] [address]- Care Team Providers Care Fire Operations Forester Name Role Phone Joanna VO, Miko Guillen Primary Care Physician [phone] Encounter [facility] Date(s): 08/02/23 - 09/01/23 [facility] Eduardo Dawson Adult [address] [place] [address]- Allergies, Adverse Reactions, Alerts Substance Reaction Severity [...] (oldterm) 10 06/24/08 Give n 1Result Comment: [facility]: [id number] [facility] 3Result Comment: [06/23/2016] HIGH DOSE 4Admin Note: FLUARIX 5Admin Note: VIS GIVEN 6Admin Note: [facility] info given to patient 7Admin Note: [facility] [...] 1 Refills, Maintenance,05/25/22 15:32:00 EDT, [facility], 75, INHALE 2 PUFFS 4 TIMES A DAY WHEN NEEDED FOR WHEEZING, 155, cm, 04/27/22 14:46:00 EDT, Height, 52.25, kg, 0... Start Date: 05/25/22 Status: Ordered amLODIPine 10 mg oral tablet 10 mg, 1, tablet, By Mouth, Daily, # 90 tablet, Refills 3, Tot. Refills 3, Maintenance, 11/22/22 16:38:00 EST, [id number] fill upon patient request [...] tablet, 6 Refills, Maintenance, 06/29/23 15:09:00 EDT, [facility]/pharmacy #[id number], 155, cm, 06/29/23 14:50:00 EDT, Height, 52.25, kg, 04/27/22 14:46:00 EDT, Dry Weight Start Date: 06/29/23 Status: Ordered budesonide-formoterol 160 mcg-4.5 mcg/inh inhalation aerosol with adapter 2, puffs, Inhalation, 2 times a day, # 30.6 each, Refills 1, Maintenance, 08/29/23 5:44:00 EST, Route to Pharmacy Electronically, [id number], [facility] 70[facility], 155, cm, 08/27/23 8:53:00 EST, Height, 52.25, [...] 11 Refills, Maintenance, 06/29/23 15:10:00 EDT, Nasal [place], [facility]/pharmacy #7111, Partial fill upon patient request if the prescription is for a scheduleII opioid drug., 1 sprays Nares, Both 2 times a day... Start Date: 06/29/23 Status: Ordered hydroCHLOROthiazide 12.5 mg oral capsule 1 capsule, By Mouth, Daily, # 90 capsule, 3 Refills, Maintenance, 12/28/22 7:50:00 EDT, [facility], 155, cm, 10/16/22 12:48:00 EST, Height, 52.25, kg, 04/27/22 14:46:00 EDT, Dry Weight Start Date: 12/28/22 Status: Ordered levothyroxine 0.05 mg oral tablet 1 tablet, By Mouth, Daily, # 90 tablet, 0 Refills, Maintenance, 08/29/23 5:44:00 EST, [facility], 155, cm, 08/27/23 8:53:00 EST, Height, 52.25, kg, 04/27/22 14:46:00 EDT, Dry Weight Start Date: 08/29/23 Status: Ordered LORazepam 0.5 mg oral tablet 1 tablet = 0.5 mg, By Mouth, Daily, PRN for anxiety, # 24 tablet, 1 Refills, Maintenance, 10/18/22 10:48:00 EST, Tablet, [facility]/pharmacy #[id number], 155, cm, 10/16/22 12:48:00 EST, Height, 52.25, kg, 04/27/22 14:46:00 EDT, Dry Weight Start Date: 10/18/22 Status: Ordered losartan 100 mg oral tablet 1 tablet, By Mouth, Daily, # 90 tablet, 3 Refills, Maintenance, 11/22/22 16:38:00 EST, [facility]/pharmacy#7111, 155, cm, 10/16/22 12:48:00 EST, Height, 52.25, [...] Refills, Maintenance, 08/03/23 9:45:00 EST, EC Capsule, [facility]/pharmacy #[id number], Partial fill upon patient request if the prescription is for a scheduleII opioid drug., 155, cm, 08/02/23 13:40:00 EST, He... Start Date: 08/03/23 Status: Ordered omeprazole 20 mg oral enteric coated capsule 1 capsule = 20 mg, By Mouth, 2 times a day, ONE CAPSULE BY MOUTH TWICE A DAY, # 60 capsule, 0 Refills, Maintenance, 08/30/23 16:15:00 EST, [facility]/pharmacy #7111, Partial fill upon patient request if theprescription is for a schedule II opioid drug., 155... Start Date: 08/30/23 Status: Ordered Spiriva HandiHaler 18 mcg inhalation capsule 1 capsule, Inhalation, Daily, # 90 capsule, 1 Refills, Maintenance, 03/21/23 12:14:00 EDT, [facility], 155, cm, 02/21/23 10:28:00 EDT, Height, 52.25, kg, 04/27/22 14:46:00 EDT,Dry Weight Start Date: 03/21/23 Status: Ordered valACYclovir 500 mg oral tablet 1, tablet, By Mouth, Daily, # 30 tablet, Refills 11, Maintenance, 12/22/22 9:50:00 EDT, Route to Pharmacy Electronically, [facility], 155, cm, 10/16/22 12:48:00 EST, Height, 52.25, [...] CT measuring 4.1 cm. 2CT scan 2015 83006; repeat 2028 4colo 2008 nl, repeat 2018 [...] Personnel Name: Maria G Mendez RN Position: [facility] RN Member Role: Primary Care Nurse Name: Barby Frias Position: [facility] Outreach Member Role: Lifetime Consulting Physician Name: Miko Marshall MD Position: [facility] Physician - Primary Care Member Role: PCP Address: Address: [address] [place] [address]- Name: Zachary Biswas MD Position: [facility] Renal MD Member Role: Lifetime Consulting Physician Address: Address: [address] [place] [address] [address] [facility] [place] [address]- [place] Name: Sridhar De Leon RN Position: [facility] RN Member Role: Primary Care Nurse Care Team Related Persons Name: MU CONTRERAS Address: [place] [address] Name: SHANELL COBIAN Address: [address] [address]
--- OUTSIDE RECORDS SUMMARY | 2024-07-03 12:10 | XMS_ITS | Continuity of Care Document ---
Author Organization [facility] Address [address] [place] [address]- Care Team Providers Care Production Administrative Assistant Name Role Phone Joanna VO, Miko Guillen Primary Care Physician [facility] Date[facility]s): 11/26/20 - 01/01/21 [facility] [address] [place] [address]- Attending Physician: Jordy Griggs Admitting Physician: Jordy Griggs Referring Physician: Jordy Griggs Allergies, Adverse Reactions, Alerts Substance Reaction Severity Status Adhesive Bandage rash swelling Active Latex rash swelling Active Immunizations Given and Recorded Vaccine Date Status Refusal Reason Zoster Vaccine Live 07/06/20 Recorded Zoster Vaccine [...] FLUARIX 4Admin Note: VIS GIVEN 5Admin Note: [facility] info given to patient 6Admin Note: GIANCARLO 7Result Comment: OOP 8Admin Note: [facility] 9Admin Note: Information sheet given 10Admin Note: given in clinic 11Admin Note: historical data Medications acetaminophen/butalbital/caffeine 325 mg-50 mg-40 mg oral capsule 1 capsule, By Mouth, Every 4 hours, PRN as needed, not to exceed 6 capsules/day, # 12 capsule, 0 Refills, Maintenance, 01/21/20 11:38:00 EDT, Capsule, [facility]/pharmacy #[id number], 1 capsule By Mouth Every 4 hours,PRN:as needed,Instr:not to exceed 6 capsules/da... Start Date: 01/21/20 Status: Ordered Aerochamber See Instructions, # 1 each, Maintenance, use with albuterol inhaler., 11/25/20 9:56:00 EST, Supply,158, cm, 09/30/20 14:41:00 EST, Height Start Date: 11/25/20 Status: Ordered amLODIPine 2.5 mg oral tablet 2.5 mg, 1, tablet, By Mouth, Daily, # 30 tablet, Refills 5, Tot. Refills 5, Maintenance, 09/01/20 11:20:00 EST, Route to Pharmacy Electronically, [facility]/pharmacy #[id number], Partial fill upon patient requestif the prescription is for a schedule II opioid tian... Start Date: 09/01/20 Status: Ordered atorvastatin 10 mg oral tablet 0.5, By Mouth, Daily, # 45 tablet, 1 Refills, Maintenance, 10/16/20 11:28:00 EST, Tablet, [facility]/pharmacy #[id number], 158, cm, 09/30/20 14:41:00 EST, Height Start Date: 10/16/20 Status: Ordered Centrum Silver By Mouth, Daily, 0 Refills, Maintenance, 01/11/17 14:23:47 Start Date: 01/11/17 Status: Ordered cloNIDine 0.1 mg oral tablet 0.1 mg, 1, tablet, By Mouth, 2 times a day, # 60 tablet, Refills 5, Tot. Refills 5, Maintenance, 09/01/20 11:20:00 EST, [id number] fill upon patientrequest if the prescription is for a schedule II op... Start Date: 09/01/20 Status: Ordered levothyroxine 0.05 mg oral tablet 1 tablet, By Mouth, Daily, # 90 tablet, 1 Refills, Maintenance, 09/07/20 9:19:00 EST, [facility]/pharmacy #[id number], 158, cm, 09/01/20 9:29:00 EST, Height Start Date: 09/07/20 Status: Ordered LORazepam 0.5 mg oral tablet 1 tablet = 0.5 mg, By Mouth, Daily, PRN for anxiety, # 24 tablet, 1 Refills, Maintenance, 08/09/20 10:16:00 EST, Tablet, [facility]/pharmacy #[id number], 158, cm, 08/09/20 9:40:00 EST, Height Start Date: 08/09/20 Status: Ordered losartan 100 mg oral tablet 1 tablet = 100 mg, By Mouth, Daily, # 30 tablet, 5 Refills, Maintenance, 09/01/20 11:21:00 EST, Tablet, [facility]/pharmacy #[id number], Partial fill upon patient request if the prescription is for a schedule II opioid drug., 158, cm, 09/01/20 9:29:00 EST, Height Start Date: 09/01/20 Status: Ordered magnesium oxide 500 mg oral tablet 1 tablet = 500 mg, By Mouth, Daily, 0 Refills, Maintenance, 06/28/18 10:06:58 EDT Start Date: 06/28/18 Status: Ordered melatonin 3 mg oral tablet 1 tablet = 3 mg, By Mouth, Daily at bedtime, 0 Refills, Maintenance, 08/09/20 10:01:00 EST, Partialfill upon patient request Start Date: 08/09/20 Status: Ordered Pepcid 20 mg oral tablet 1 tablet = 20 mg, By Mouth, 2 times a day, PRN Indigestion, # 60 tablet, 1 Refills, Maintenance, 03/26/20 14:17:00 EDT, [facility]/pharmacy #[id number], 158, cm, 03/10/20 14:43:00 EDT, Height, 57.6, kg, 05/21/18 14:53:00 EDT, Dry Weight Start Date: 03/26/20 Stop Date: 05/25/20 Status: Ordered ProAir HFA 90 mcg/inh inhalation aerosol with adapter 2, puffs, Inhalation, 4 times a day, PRN, NEW RX PER AFAY, # 3 each, Refills 1, Tot. Refills 1, Maintenance, 11/22/20 7:30:00 EST, Aerosol, Route to Pharmacy Electronically, [id number], [facility]/pharmacy #[id number], 158, cm, 09/30/20 1... Start Date: 11/22/20 Stop Date: 01/21/21 Status: Ordered Spiriva HandiHaler 18 mcg inhalation capsule 1 capsule, Inhalation, Daily, # 90 capsule, 3 Refills, Maintenance, 01/22/20 12:21:00 EDT, [facility], 158, cm, 01/01/20 10:50:00 EDT, Height, 57.6, kg, 05/21/18 14:53:00 EDT, DryWeight Start Date: 01/22/20 Status: Ordered Symbicort 160mcg/4.5mcg Inhaler 2, puffs, Inhalation, 2 times a day, 90 DAY SUPPLY, # 3 each, Refills 1, Tot. Refills 1, Maintenance, 06/30/20 12:01:00 EDT, Aerosol, Route to Pharmacy Electronically, [id number], [facility]/pharmacy #[id number], 158, cm, 06/21/20 12:56:0... Start Date: 06/30/20 Status: Ordered Valtrex 500 mg oral tablet 500 mg, 1, tablet, By Mouth, Daily, # 30 tablet, Refills 11, Tot. Refills 11, Maintenance, 10/19/2111:02:00 EST, Route to Pharmacy Electronically, [facility]/pharmacy #[id number], 158, cm, 09/30/20 14:41:00 EST,Height Start Date: 10/19/20 Status: Ordered Problem List Condition Effective Dates Status Health Status Inform ant Alcohol intake above recomme nded sensible limits without complication(Confirmed) Active Allergic rhinitis(Confirmed) Active Ascending aortic aneurysm(Confirmed) 1 Active Thoracic aortic aneurysm(Confirmed) 2 Active Colonoscopy(Confirmed) 3, 4 Active COPD (chronic [...] CT measuring 4.[address]. 2[address] scan 2016 [address]12; repeat 2028 4colo 2009 nl, repeat 2019 5colo 2019 6egd 2012 no barretts 7colo 2019 8Status post laparotomy with lysis of adhesions and repair of incarcerated ventral hernia. Surgery performed March 2018. 9Thyroid peroxidase antibody positive Social History Social History Type Response Smoking Status Former smoker; Other : quit 15 years ago; entered on: 03/16/16 Sex Female
--- OUTSIDE RECORDS SUMMARY | 2024-07-03 12:10 | XMS_ITS | Continuity of Care Document ---
Author Organization [facility] Eduardo Dawson Durga lt Address [address] [place] [address]- Care Team Providers Care Radar Technician Name Role Phone Miko Marshall MD Primary Care Physician [phone] [facility] - 12/16/23 [facility] Adult [address] [place] [address]- Allergies, Adverse Reactions, Alerts Substance Reaction Severity [...] (oldterm) 10 06/24/08 Give n 1Result Comment: [facility]: [id number] 2Location History: [facility] 3Result Comment: [06/23/2016] HIGH DOSE 4Admin Note: FLUARIX 5Admin Note: VIS GIVEN 6Admin Note: [facility] info given to patient 7Admin Note: [facility] [...] 11/22/22 16:38:00 EST, Route to Pharmacy Electronically, [facility]/pharmacy #[id number], Partial fill upon patient request if the [...] tablet, 6 Refills, Maintenance, 06/29/23 15:09:00 EDT, [facility]/pharmacy #[id number], 155, cm, 06/29/23 14:50:00 EDT, Height, 52.25, kg, 04/27/22 14:46:00 EDT, Dry Weight Start Date: 06/29/23 Status: Ordered budesonide-formoterol 160 mcg-4.5 mcg/inh inhalation aerosol with adapter 2, puffs, Inhalation, 2 times a day, # 30.6 each, Refills 11, Tot. Refills 11, Maintenance, 11/20/23 9:54:00 EST, Route to Pharmacy Electronically, [id number], [facility]/pharmacy #[id number], 155, cm, 10/12/23 16:44:00 EST, Height, [...] 09/28/23 13:34:00 EST, [id number] Partial fill upon patient request if the prescription is for a schedule II o... Start Date: 09/28/23 Stop Date: 09/22/24 Status: Ordered fluticasone 50 mcg/inh nasal spray 1 sprays, Nares, Both, 2 times a day, # 16 Gm, 11 Refills, Maintenance, 06/29/23 15:10:00 EDT, Nasal Colt, [facility]/pharmacy #[id number], Partial fill upon patient request if the prescription is for a scheduleII opioid drug., 1 sprays Nares, Both 2 times a day... Start Date: 06/29/23 Status: Ordered hydroCHLOROthiazide 12.5 mg oral capsule 1 capsule, By Mouth, Daily, # 90 capsule, 3 Refills, Maintenance, 12/28/22 7:50:00 EDT, [facility], 155, cm, 10/16/22 12:48:00 EST, Height, 52.25, kg, 04/27/22 14:46:00 EDT, Dry Weight Start Date: 12/28/22 Status: Ordered levothyroxine 0.05 mg oral tablet 1 tablet, By Mouth, Daily, # 90 tablet, 0 Refills, Maintenance, 11/26/23 9:51:00 EDT, [facility], 155, cm, 10/12/23 16:44:00 EST, Height, 52.25, kg, 04/27/22 14:46:00 EDT, Dry Weight Start Date: 11/26/23 Status: Ordered LORazepam 0.5 mg oral tablet 1 tablet = 0.5 mg, By Mouth, Daily, PRN for anxiety, # 24 tablet, 1 Refills, Maintenance, 12/11/23 9:46:00 EDT, Tablet, [facility]/pharmacy #[id number], 155, cm, 10/12/23 16:44:00 EST, Height, 52.25, kg, 04/27/2214:46:00 EDT, Dry Weight Start Date: 12/11/23 Status: Ordered losartan 100 mg oral tablet 1 tablet, By Mouth, Daily, # 90 tablet, 3 Refills, Maintenance, 11/22/22 16:38:00 EST, [facility]/pharmacy#7111, 155, cm, 10/16/22 12:48:00 EST, Height, 52.25, kg, 04/27/22 14:46:00 EDT, Dry Weight Start Date: 11/22/22 Status: Ordered magnesium oxide 500 mg oral tablet 1 tablet = 500 mg, By Mouth, Daily, 0 Refills, Maintenance, 06/28/18 10:06:58 EDT Start Date: 06/28/18 Status: Ordered Spiriva HandiHaler 18 mcg inhalation capsule 1 capsule, Inhalation, Daily, # 90 capsule, 4 Refills, Maintenance, 11/20/23 9:54:00 EST, [facility]/pharmacy #[id number], 155, cm, 10/12/23 16:44:00 EST, Height, 52.25, kg, 04/27/22 14:46:00 EDT, Dry Weight Start Date: 11/20/23 Status: Ordered valACYclovir 500 mg oral tablet 1, tablet, By Mouth, Daily, # 30 tablet, Refills 11, Maintenance, 12/22/22 9:50:00 EDT, Route to Pharmacy Electronically, [facility], 155, cm, 10/16/22 12:48:00 EST, Height, 52.25, kg, 04/27/22 14:46:00 EDT, Dry Weight Start Date: 12/22/22 Status: Ordered Ventolin HFA 108 mcg/inh inhalation aerosol with adapter 2 puffs, Inhalation, Every 6 hours, PRN for wheezing, # 8 Gm, 11 Refills, Maintenance, 11/20/23 9:54:00 EST, Aerosol, [facility]/pharmacy #[id number], Partial fill upon patient request if [...] CT measuring 4.1 cm. 2CT scan 2016 [address]63; repeat 2028 4colo 2009 nl, repeat 2019 [...] Personnel Name: Maria G Mendez RN [facility] RN Member Role: Primary Care Nurse Name: Barby Frias Position: [facility] Outreach Member Role: Lifetime Consulting Physician Name: Miko Marshall MD Position: [facility] Physician - Primary Care Member Role: PCP Address: Address: [address] [place] [address]- Name: Zachary Biswas MD Position: [facility] Renal MD Member Role: Lifetime Consulting Physician Address: Address: [address] [place] [address] [address] [facility] [place] [address]- [place] Name: Moises BAH, Sridhar Position[facility] RN Member Role: Primary Care Nurse Care Team Related Persons Name: MU CONTRERAS Address: [place] [address] Name: SHANELL COBIAN Address: [address] [address]
--- OUTSIDE RECORDS SUMMARY | 2024-07-03 12:10 | XMS_ITS | Continuity of Care Document ---
Author Organization [facility] Samir Durga lt Address [address] [place] [address]- Care Team Providers Care Statistics Intern Name Role Phone Miko Marshall MD Primary Care Physician [facility] 02[facility]26[facility]24 - 03/27/24 [facility] Adult [address] [place] [address]- Allergies, Adverse Reactions, Alerts Substance Reaction Severity [...] (oldterm) 10 06/24/08 Give n 1Result Comment: [facility]: [id number] 2[facility] 3Result Comment: [06/23/2016] HIGH DOSE 4Admin Note: FLUARIX 5Admin Note: VIS GIVEN 6Admin Note: [facility] info given to patient 7Admin Note: [facility] 8Admin Note: historical data 9Admin Note: Information sheet given 10Admin Note: given in clinic Medications Aerochamber See Instructions, # 1 each, Maintenance, use with albuterol inhaler., 11/25/20 9:56:00 EST, Supply,158, cm, 09/30/20 14:41:00 EST, Height Start Date: 11/25/20 Status: Ordered albuterol 0.083% inhalation solution 3 mL = 2.5 mg, Inhalation, Every 6 hours, use with nebulizer, j44.9, # 1,080 mL, 3 Refills, Maintenance, 01/01/25 15:18:00 EDT, Solution, [facility]/pharmacy #[id number], Partial fill upon patient request if the prescription is for a schedule II opioid drug., 155,... Start Date: 01/01/25 Stop Date: 12/27/25 Status: Ordered albuterol 0.083% inhalation solution 3 mL = 2.5 mg, Inhalation, Every 6 hours, for 90 days, use with nebulizer, # 1,080 mL, 3 Refills, Hard Stop 01/01/25 15:18:00 EDT, 01/07/24 15:18:00 EDT, Solution, [facility]/pharmacy #7111, Partial fill upon patient request if the prescription is for a sche... Start Date: 01/07/24 Stop Date: 01/01/25 Status: Ordered amLODIPine 10 mg oral tablet 1 tablet, By Mouth, Daily, # 90 tablet, 1 Refills, Maintenance, 12/22/23 8:21:00 EDT, [facility]/pharmacy #[id number], 155, cm, 10/12/23 16:44:00 EST, [...] tablet, 6 Refills, Maintenance, 06/29/23 15:09:00 EDT, [facility]/pharmacy #[id number], 155, cm, 06/29/23 14:50:00 EDT, Height, 52.25, kg, 04/27/22 14:46:00 EDT, Dry Weight Start Date: 06/29/23 Status: Ordered budesonide-formoterol 160 mcg-4.5 mcg/inh inhalation aerosol with adapter 2, puffs, Inhalation, 2 times a day, # 30.6 each, Refills 11, Tot. Refills 11, Maintenance, 03/03/24 11:43:00 EDT, Route to Pharmacy Electronically, [id number], [facility]/pharmacy#[id number], 155, cm, 03/03/24 8:56:00 EDT, Height, 52.25... Start Date: 03/03/24 Status: Ordered Centrum Silver By Mouth, Daily, [...] 09/28/23 13:34:00 EST, Route to Pharmacy Electronically, [facility]/pharmacy #[id number], Partial fill upon patient request if the prescription is for a schedule II o... Start Date: 09/28/23 Stop Date: 09/22/24 Status: Ordered fluticasone 50 mcg/inh nasal spray 1 sprays, Nares, Both, 2 times a day, # 16 Gm, 11 Refills, Maintenance, 06/29/23 15:10:00 EDT, Nasal Coats, [facility]/pharmacy #[id number], Partial fill upon patient request if the prescription is for a scheduleII opioid drug., 1 sprays Nares, Both 2 times a day... Start Date: 06/29/23 Status: Ordered hydroCHLOROthiazide 12.5 mg oral capsule 1 capsule, By Mouth, Daily, # 90 capsule, 1 Refills, Maintenance, 03/14/24 11:38:00 EDT, [facility]/pharmacy #[id number], 155, cm, 03/03/24 8:56:00 EDT, Height, 52.25, kg, 04/27/22 14:46:00 EDT, Dry Weight Start Date: 03/14/24 Status: Ordered levothyroxine 0.05 mg oral tablet 1 tablet, By Mouth, Daily, # 90 tablet, 1 Refills, Maintenance, 02/26/24 4:51:00 EDT, [facility]/pharmacy #[id number], 155, cm, 01/17/24 10:49:00 EDT, Height, 52.25, kg, 04/27/22 14:46:00 EDT, Dry Weight Start Date: 02/26/24 Status: Ordered LORazepam 0.5 mg oral tablet 1 tablet = 0.5 mg, By Mouth, Daily, PRN for anxiety, # 24 tablet, 1 Refills, Maintenance, 12/11/23 9:46:00 EDT, Tablet, [facility]/pharmacy #[id number], 155, cm, 10/12/23 16:44:00 EST, Height, 52.25, kg, 04/27/2214:46:00 EDT, Dry Weight Start Date: 12/11/23 Status: Ordered losartan 100 mg oral tablet 1 tablet, By Mouth, Daily, # 90 tablet, 1 Refills, Maintenance, 12/22/23 8:20:00 EDT, [facility]/pharmacy #[id number], 155, cm, 10/12/23 16:44:00 EST, Height, 52.25, kg, 04/27/22 14:46:00 EDT, Dry Weight Start Date: 12/22/23 Status: Ordered magnesium oxide 500 mg oral tablet 1 tablet = 500 mg, By Mouth, Daily, 0 Refills, Maintenance, 06/28/18 10:06:58 EDT Start Date: 06/28/18 Status: Ordered Metamucil 500 mg oral capsule 0 Refills, Maintenance, 01/17/24 11:14:00 EDT, Partial fill upon patient request if the prescription is for a schedule II opioid drug. Start Date: 01/17/24 Status: Ordered MiraLax oral powder for reconstitution = 17 Gm, By Mouth, Daily, # 238 Gm, 0 Refills, Maintenance, 01/17/24 11:14:00 EDT, REC Powder, Partial fill upon patient request if the prescription is for a schedule II opioid drug. Start Date: 01/17/24 Status: Ordered Nebulizer/Compressor See Instructions, # 1 each, Refills 11, Tot. Refills 11, Maintenance, E0570 Nebulizer A7003 Neb Disp Set A7014 Neb non-Disp Filter A7005 Neb Non-Disp set A7015 Aerosol Mask A7013 Neb Disp Filter length of need lifetime 99 months for home use dx J... Start Date: 01/08/24 Status: Ordered Spiriva HandiHaler 18 mcg inhalation capsule 1 capsule, Inhalation, Daily, # 90 capsule, 4 Refills, Maintenance, 03/03/24 13:00:00 EDT, [facility]/pharmacy #[id number], 155, cm, 03/03/24 8:56:00 EDT, Height, 52.25, kg, 04/27/22 14:46:00 EDT, Dry Weight Start Date: 03/03/24 Status: Ordered Spiriva HandiHaler 18 mcg inhalation capsule 1 capsule = 18 mcg, Inhalation, Daily, # 90 capsule, 3 Refills, Maintenance, 01/07/24 15:17:00 EDT,[facility]/pharmacy #[id number], Partial fill upon patient request if the prescription is for a schedule II opioid drug., 155, cm, 01/07/24 14:45:00 EDT, Height, 52... Start Date: 01/07/24 Stop Date: 01/01/25 Status: Ordered Symbicort 160mcg/4.5mcg Inhaler 2, puffs, Inhalation, 2 times a day, # 3 each, Refills 3, Tot. Refills 3, Maintenance, 01/07/24 15:17:00 EDT, Aerosol, Route to Pharmacy Electronically, [id number], [facility]/pharmacy #[id number], 155, cm, 01/07/24 14:45:00 EDT, Height,... Start Date: 01/07/24 Stop Date: 01/01/25 Status: Ordered valACYclovir 500 mg oral tablet 1, tablet, By Mouth, Daily, # 90 tablet, Refills 1, Tot. Refills 1, Maintenance, 03/14/24 11:38:00 EDT, Route to Pharmacy Electronically, [facility]/pharmacy #[id number], 155, cm, 03/03/24 8:56:00 EDT, Height, 52.25, kg, 04/27/22 14:46:00 EDT, Dry Weight Start Date: 03/14/24 Status: Ordered Ventolin HFA 108 mcg/inh inhalation aerosol with adapter 2 puffs, Inhalation, Every 6 hours, PRN for wheezing, # 8 Gm, 11 Refills, Maintenance, 11/20/23 9:54:00 EST, Aerosol, [facility]/pharmacy #[id number], Partial fill upon patient request if the prescription is for a schedule II opioid drug., 155, cm, 10/12/23 16:44:... Start Date: 11/20/23 Status: Ordered Ventolin HFA 108 mcg/inh inhalation aerosol with adapter 2 puffs, Inhalation, 4 times a day, PRN for wheezing, # 3 each, 3 Refills, Maintenance, 01/07/24 15:20:00 EDT, [facility]erosol, [id number], Partial fill upon patient request if the prescription is for a schedule II opioid drug., 155, cm, 01/07/24 14:4... Start Date: 01/07/24 Stop Date: 01/01/25 Status: Ordered Zinc = 140 mg, By [...] chest CT measuring 4.1 cm. 2CT scan 201519; repeat 2028 4colo 2008 nl, repeat 2019 5Problem added by Discern Expert 6colo 2018 7egd 2012 no barretts 8colo 2018 9Status post laparotomy with lysis of adhesions and repair of incarcerated ventral hernia. Surgery performed March 2018. 10Thyroid peroxidase antibody positive Social History Social History Type Response Smoking Status Former smoker, quit more than 30 days ago entered on: 01/07/24 Sex Female Patient Care team information Care Team Personnel Name: Maria G Mendez RN Position: [facility] RN Member Role: Primary Care Nurse Name: Barby Frias Position: [facility] Outreach Member Role: Lifetime Consulting Physician Name: Miko Marshall MD Position: [facility] Physician - Primary Care Member Role: PCP Address: Address: [address] [place] [address]- [place] Name: Zachary Biswas MD Position: [facility] Renal MD Member Role: Lifetime Consulting Physician Address: Address: [address] [facility] [place] [address]- [place] Name: Sridhar De Leon RN Position: [facility] RN Member Role: Primary Care Nurse Care Team Related Persons Name: MU CONTRERAS Address: [place] [address] Name: SHANELL COBIAN Address: [address] [address]
--- OUTSIDE RECORDS SUMMARY | 2024-07-03 12:10 | XMS_ITS | Continuity of Care Document ---
Author Organization [facility] Eduardo Dawson Durga Address [address] [place] [address]- Care Team Providers Care Client Executive Name Role Phone Miko Marshall MD Primary Care Physician [phone] [facility]): [facility] - 01/30/20 [facility] Eduardo Dawson Adult [address] [place] [address]- [facility] Attending Physician: Brenda Jackson NP Referring Physician: [...] 0 Refills, Maintenance, 01/21/20 11:38:00 EDT, Capsule, [facility]/pharmacy #[id number], 1 capsule By Mouth Every 4 hours,PRN:as needed,Instr:not to exceed 6 capsules/da... Start Date: 01/21/20 Status: Ordered atorvastatin 10 mg oral tablet 0.5, By Mouth, Daily, # 45 tablet, 1 Refills, Maintenance, 10/14/19 10:36:00 EST, Tablet, [facility]/pharmacy #[id number], 158, cm, 05/22/19 10:37:00 EDT, [...] capsule, 0 Refills, Maintenance, 12/23/19 8:38:00 EDT, [facility]/pharmacy #[id number], 1 capsule By Mouth Daily,Instr:Please call to schedule a follow up office visit., 158, cm, 0... Start Date: 12/23/19 Status: Ordered levothyroxine 0.05 mg oral tablet 1 tablet, By Mouth, Daily, # 90 tablet, 0 Refills, Maintenance, 12/19/19 9:09:00 EDT, [facility]ORE 81726, 158, cm, 05/22/19 10:37:00 EDT, Height, 57.6, kg, 05/21/18 14:53:00 EDT, Dry Weight Start Date: 12/19/19 Status: Ordered LORazepam 0.5 mg oral tablet 1 tablet = 0.5 mg, By Mouth, Daily, PRN for anxiety, , # 24 tablet, 1 Refills, Maintenance, 09/12/19 13:53:00 EST, Tablet, [facility]/pharmacy #[id number], 158, cm, 05/22/19 10:37:00 EDT, Height, 57.6, kg, 05/21/18 14:53:00 EDT, Dry Weight Start Date: 09/12/19 Status: Ordered losartan 100 mg oral tablet 1 tablet = 100 mg, By Mouth, Daily, please make OV within next 1-2 months for further refills., # 30 tablet, 1 Refills, Maintenance, 11/12/19 16:41:00 EST, Tablet, [facility]/pharmacy #[id number], 158, cm, 05/22/19 10:37:00 EDT, [...] 14:51:47 EST, Aerosol, Route to Pharmacy Electronically, [id number], [facility]/pharmacy #7111 Start Date: 07/30/19 Status: Ordered Spiriva HandiHaler 18 mcg inhalation [...] 12:57:08 EST, Aerosol, Route to Pharmacy Electronically, [id number], [facility], 158, cm, 0... Start Date: 08/21/19 Status: Ordered valsartan 320 mg oral tablet 1 tablet = 320 mg, By Mouth, Daily, # 90 tablet, 3 Refills, Maintenance, 01/28/20 7:32:00 EDT, [id number], cm, 01/01/20 10:50:00 EDT, Height, 57.6, kg, 05/21/18 14:53:00 EDT, DryWeight Start Date: 01/28/20 Status: Ordered Valtrex 500 mg oral tablet 500 mg, 1, tablet, By Mouth, Daily, # 30 tablet, Refills 11, Tot. Refills 11, Maintenance, 07/25/1811:27:07 EST, Route to Pharmacy Electronically, [id number], [facility] Start Date: 07/25/18 Status: Ordered Problem [...] performed March 2018. 8Thyroid peroxidase antibody positive Social History Social History Type Response Smoking Status Former smoker; Other : quit 15 years ago; entered on: 03/16/16 Sex
--- OUTSIDE RECORDS SUMMARY | 2024-07-03 12:10 | XMS_ITS | Continuity of Care Document ---
Author Organization [facility] Eduardo Dawson Durga lt Address [address] [place] [address]- Care Team Providers Care Seat Maker Name Role Phone Joanna VO, Miko Guillen Primary Care Physician [facility] 10[facility]21 - 11/05/21 [facility] Adult [address] [place] [address]- Allergies, Adverse Reactions, Alerts Substance Reaction Severity [...] n 1Admin Note: historical data 2Location History: [facility] 3Result Comment: [06/23/2016] HIGH DOSE 4Admin Note: FLUARIX 5Admin Note: VIS GIVEN 6Admin Note: [facility] info given to patient 7Admin [...] 09/02/21 9:38:00 EST, Route to Pharmacy Electronically, [facility]/pharmacy #[id number], Partial fill upon patient request if the prescription is for a schedule II opioid drug.... Start Date: 09/02/21 Status: Ordered atorvastatin 10 mg oral tablet 0.5 tablet, By Mouth, Daily, # 45 tablet, 1 Refills, [facility] STORE 51615, 155, cm, 05/16/21 12:39:00 EDT, Height Start Date: 06/07/21 Status: Ordered budesonide-formoterol 160 mcg-4.5 mcg/inh inhalation aerosol with adapter 2, puffs, Inhalation, 2 times a day, # 30.6 each, Refills 1, Route to Pharmacy Electronically, [id number], [facility], 155, cm, 05/16/21 12:39:00 EDT, Height Start Date: 06/25/21 Status: Ordered Centrum Silver By Mouth, Daily, 0 Refills, Maintenance, 01/11/17 14:23:47 Start Date: 01/11/17 Status: Ordered cloNIDine 0.1 mg oral tablet 0.1 mg, 1, tablet, By Mouth, 2 times a day, # 180 tablet, Refills 3, Tot. Refills 3, Maintenance, 09/02/21 9:38:00 EST, Route to Pharmacy Electronically, [facility]/pharmacy #[id number], Partial fill upon patientrequest if the prescription is for a schedule II op... Start Date: 09/02/21 Status: Ordered hydroCHLOROthiazide 12.5 mg oral capsule 1 capsule = 12.5 mg, By Mouth, Daily, # 90 capsule, 3 Refills, Maintenance, 10/19/21 11:02:00 EST, Capsule, [facility]/pharmacy #[id number], Partial fill upon patient request if the prescription is for a scheduleII opioid drug., 155, cm, 10/05/21 13:33:00 EST, He... Start Date: 10/19/21 Status: Ordered levothyroxine 0.05 mg oral tablet 1 tablet, By Mouth, Daily, # 90 tablet, 1 Refills, [facility] 14915, 155, cm, 08/05/21 11:25:00 EST,Height Start Date: 09/01/21 Status: Ordered LORazepam 0.5 mg oral tablet 1 tablet = 0.5 mg, By Mouth, Daily, PRN for anxiety, # 24 tablet, 1 Refills, Maintenance, 09/02/21 9:33:00 EST, Tablet, [facility]/pharmacy #[id number], 155, cm, 09/02/21 8:06:00 EST, Height Start Date: 09/02/21 Status: Ordered losartan 100 mg oral tablet 1 tablet, By Mouth, Daily, # 90 tablet, 0 Refills, [facility], 155, cm, 09/02/21 8:06:00 EST, Height Start [...] 7:30:00 EST, Aerosol, Route to Pharmacy Electronically, [id number], [facility]/pharmacy #7111, 158, cm, 09/30/20 1... Start Date: 11/22/20 Stop Date: 01/21/21 Status: Ordered Spiriva HandiHaler 18 mcg inhalation capsule 1 capsule, Inhalation, Daily, # 90 capsule, 1 Refills, Maintenance, 10/07/21 11:00:00 EST, [facility], 155, cm, 10/05/21 13:33:00 EST, Height Start Date: 10/07/21 Status: Ordered valACYclovir 500 mg oral tablet 1, tablet, By Mouth, Daily, # 30 tablet, Refills 11, Route to Pharmacy Electronically, [facility] 99766, 155, cm, 10/05/21 13:33:00 EST, Height Start [...] CT measuring 4.1 cm. 2CT scan 2015 [address]603; repeat 2028 4colo 2008 nl, repeat 2019 [...]
--- OUTSIDE RECORDS SUMMARY | 2024-07-03 12:10 | XMS_ITS | Continuity of Care Document ---
Author Organization [facility] Address [address] [place] [address]- Care Team Providers Care Multiple Coil Winder Name Role Phone Miko Marshall MD Primary Care Physician [phone] [facility] Date[facility]): 05/21/24 - 06/20/24 [facility] [address] [place] [address] Allergies, Adverse Reactions, Alerts Substance Reaction Severity Status Adhesive Bandage rash swelling Active Latex rash swelling Active Immunizations Given and Recorded Vaccine Date Status Refusal Reason RSV vaccine preF3, recombinant 06/09/24 Recorded influenza virus vaccine, inactivated 06/09/24 Stan rded influenza virus vaccine, inactivated 1 06/29/23 Gi [...] (oldterm) 10 06/24/08 Give n 1Result Comment: [facility]: [id number] [facility] 3Result Comment: [06/23/2016] HIGH DOSE 4Admin Note: FLUARIX 5Admin Note: VIS GIVEN 6Admin Note: [facility] info given to patient 7Admin Note: [facility] [...] 3 Refills, Maintenance, 01/01/25 15:18:00 EDT, Solution, [facility]/pharmacy #[id number], Partial fill upon patient request if the prescription is for a schedule II opioid drug., 155,... Start Date: 01/01/25 Stop Date: 12/27/25 Status: Ordered amLODIPine 10 mg oral tablet 1 tablet, By Mouth, Daily, # 90 tablet, 1 Refills, Maintenance, 12/22/23 8:21:00 EDT, [facility]/pharmacy #[id number], 155, cm, 10/12/23 16:44:00 EST, Height, [...] tablet, 6 Refills, Maintenance, 06/29/23 15:09:00 EDT, [facility]/pharmacy #[id number], 155, cm, 06/29/23 14:50:00 EDT, Height, 52.25, kg, 04/27/22 14:46:00 EDT, Dry Weight Start Date: 06/29/23 Status: Ordered budesonide-formoterol 160 mcg-4.5 mcg/inh inhalation aerosol with adapter 2, puffs, Inhalation, 2 times a day, # 30.6 each, Refills 11, Tot. Refills 11, Maintenance, 03/03/24 11:43:00 EDT, Route to Pharmacy Electronically, [id number], [facility]/pharmacy#[id number], 155, cm, 03/03/24 8:56:00 EDT, Height, 52.25... [...] 09/28/23 13:34:00 EST, Route to Pharmacy Electronically, [facility]/pharmacy #[id number], Partial fill upon patient request if the prescription is for a schedule II o... Start Date: 09/28/23 Stop Date: 09/22/24 Status: Ordered fluticasone 50 mcg/inh nasal spray 1 sprays, Nares, Both, 2 times a day, # 16 Gm, 11 Refills, Maintenance, 06/29/23 15:10:00 EDT, Nasal [place], [facility]/pharmacy #[id number], Partial fill upon patient request if the prescription is for a scheduleII opioid drug., 1 sprays Nares, Both 2 times a day... Start Date: 06/29/23 Status: Ordered gabapentin 100 mg oral capsule 100 mg, 1, capsule, By Mouth, 3 times a day, # 90 capsule, Refills 1, Tot. Refills 1, Maintenance, 06/05/24 11:36:00 EDT, [facility] to [facility], [id number], Partial fill upon patient request if the prescription is for a schedule II... Start Date: 06/05/24 Status: Ordered hydroCHLOROthiazide 12.5 mg oral capsule 1 capsule, By Mouth, Daily, # 90 capsule, 1 Refills, Maintenance, 03/14/24 11:38:00 EDT, [id number], 155, cm, 03/03/24 8:56:00 EDT, Height, 52.25, kg, 04/27/22 14:46:00 EDT, Dry Weight Start Date: 03/14/24 Status: Ordered levothyroxine 0.05 mg oral tablet 1 tablet, By Mouth, Daily, # 90 tablet, 1 Refills, Maintenance, 02/26/24 4:51:00 EDT, [id number], 155, cm, 01/17/24 10:49:00 EDT, Height, 52.25, kg, 04/27/22 14:46:00 EDT, Dry Weight Start Date: 02/26/24 Status: Ordered LORazepam 0.5 mg oral tablet 1 tablet = 0.5 mg, By Mouth, Daily, PRN for anxiety, # 24 tablet, 1 Refills, Maintenance, 12/11/23 9:46:00 EDT, Tablet, [facility]/pharmacy #[id number], 155, cm, 10/12/23 16:44:00 EST, Height, 52.25, kg, 04/27/2214:46:00 EDT, Dry Weight Start Date: 12/11/23 Status: Ordered losartan 100 mg oral tablet 1 tablet, By Mouth, Daily, # 90 tablet, 1 Refills, Maintenance, 12/22/23 8:20:00 EDT, [facility]/pharmacy #[id number], 155, cm, 10/12/23 16:44:00 EST, Height, [...] 90 capsule, 3 Refills, Maintenance, 01/07/24 15:17:00 EDT[id number] Partial fill upon patient request if the prescription is for a schedule II opioid drug., 155, cm, 01/07/24 14:45:00 EDT, Height, 52... Start Date: 01/07/24 Stop Date: 01/01/25 Status: Ordered valACYclovir 500 mg oral tablet 1, tablet, By Mouth, Daily, # 90 tablet, Refills 1, Tot. Refills 1, Maintenance, 03/14/24 11:38:00 EDT, [facility] to Pharm[facility] Electronically, [id number], 155, cm, 03/03/24 8:56:00 EDT, Height, 52.25, kg, 04/27/22 14:46:00 EDT, Dry Weight Start Date: 03/14/24 Status: Ordered Ventolin HFA 108 mcg/inh inhalation aerosol with adapter 2 puffs, Inhalation, 4 times a day, PRN for wheezing, # 3 each, 3 Refills, Maintenance, 01/07/24 15:20:00 EDT, Aerosol, [facility]/pharmacy #[id number], Partial fill upon patient request if [...] CT measuring 4.[address]. 2CT scan 2016 63649; repeat 2028 4colo 2009 nl, repeat 2019 5Problem added by Discern Expert 6colo 2018 7egd 2012 no barretts 8colo 2019 9Status post laparotomy with lysis of adhesions and repair of incarcerated ventral hernia. Surgery performed March 2018. 10Thyroid peroxidase antibody positive Social History Social History Type Response Smoking Status Former smoker, quit more than 30 days ago entered on: 01/07/24 Sex Female Patient Care team information Care Team Personnel Name: Maria G Mendez RN Position: [facility] RN Member Role: Primary Care Nurse Name: Barby Frias Position: [facility] Outreach Member Role: Lifetime Consulting Physician Name: Miko Marshall MD Position: [facility] Physician - Primary Care Member Role: PCP Address: Address: [address] [place] [address]- Name: Zachary Biswas MD Position: [facility] Renal MD Member Role: Lifetime Consulting Physician Address: Address: [address] [place] [address] [address] [facility] [place] [address]- Name: Moises BAH, Sridhar Position: [facility] RN Member Role: Primary Care Nurse Care Team Related Persons Name: MU CONTRERAS Address: [place] [address] Name: SHANELL COBIAN Address: [address] [address]
--- OUTSIDE RECORDS SUMMARY | 2024-07-03 12:10 | XMS_ITS | Continuity of Care Document ---
Author Organization [facility] Samir Durga lt Address [address] [place] [address]- Care Team Providers Care Employee Health Rn Name Role Phone Joanna VO, Miko Guillen Primary Care Physician [facility]s): 11/14/21 - 11/21/21 [facility] [place] Adult [address] [place] [address]- Attending Physician: Steve Ji MD Allergies, Adverse Reactions, Alerts Substance Reaction [...] n 1Admin Note: historical data 2Location History: [facility] 3Result Comment: [06/23/2016] HIGH DOSE 4Admin Note: FLUARIX 5Admin Note: VIS GIVEN 6Admin Note: [facility] info given to patient 7Admin Note: GIANCARLO [...] 09/02/21 9:38:00 EST, Route to Pharmacy Electronically, [facility]/pharmacy #[id number], Partial fill upon patient request if the prescription is for a schedule II opioid drug.... Start Date: 09/02/21 Status: Ordered atorvastatin 10 mg oral tablet 0.5 tablet, By Mouth, Daily, # 45 tablet, 1 Refills, [facility] STORE 00413, 155, cm, 05/16/21 12:39:00 EDT, Height Start Date: 06/07/21 Status: Ordered budesonide-formoterol 160 mcg-4.5 mcg/inh inhalation aerosol with adapter 2, puffs, Inhalation, 2 times a day, # 30.6 each, Refills 1, Route to Pharmacy Electronically, [id number], [facility] ST[facility] 50225, 155, cm, 05/16/21 12:39:00 EDT, Height Start Date: 06/25/21 Status: Ordered Centrum Silver By Mouth, Daily, 0 Refills, Maintenance, 01/11/17 14:23:47 Start Date: 01/11/17 Status: Ordered cloNIDine 0.1 mg oral tablet 0.1 mg, 1, tablet, By Mouth, 2 times a day, # 180 tablet, Refills 3, Tot. Refills 3, Maintenance, 09/02/21 9:38:00 EST, Route to Pharmacy Electronically, [facility]/pharmacy #[id number], Partial fill upon patientrequest if the prescription is for a schedule II op... Start Date: 09/02/21 Status: Ordered doxycycline hyclate 100 mg oral capsule 1 capsule = 100 mg, By Mouth, 2 times a day, for 7 days, # 14 capsule, 0 Refills, Acute 11/22/21 14:36:00 EST, 11/15/21 14:36:00 EST, Capsule, [facility]/pharmacy #[id number], Partial fill upon patient request ifthe prescription is for a schedule II opioid drug.,... Start Date: 11/15/21 Stop Date: 11/22/21 Status: Ordered hydroCHLOROthiazide 12.5 mg oral capsule 1 capsule = 12.5 mg, By Mouth, Daily, # 90 capsule, 3 Refills, Maintenance, 10/19/21 11:02:00 EST, Capsule, [facility]/pharmacy #[id number], Partial fill upon patient request if the prescription is for a scheduleII opioid drug., 155, cm, 10/05/21 13:33:00 EST, He... Start Date: 10/19/21 Status: Ordered levothyroxine 0.05 mg oral tablet 1 tablet, By Mouth, Daily, # 90 tablet, 1 Refills, [facility] 11436, 155, cm, 08/05/21 11:25:00 EST,Height Start Date: 09/01/21 Status: Ordered LORazepam 0.5 mg oral tablet 1 tablet = 0.5 mg, By Mouth, Daily, PRN for anxiety, # 24 tablet, 1 Refills, Maintenance, 09/02/21 9:33:00 EST, Tablet, [facility]/pharmacy #[id number], 155, cm, 09/02/21 8:06:00 EST, Height Start Date: 09/02/21 Status: Ordered losartan 100 mg oral tablet 1 tablet, By Mouth, Daily, # 90 tablet, 0 Refills, [facility] 20236, 155, cm, 09/02/21 8:06:00 EST, Height Start [...] 7:30:00 EST, Aerosol, Route to Pharmacy Electronically, [id number], [id number], cm, 09/30/20 1... Start Date: [...] tablet, Refills 11, Route to Pharmacy Electronically, [facility] 22454, 155, cm, 10/05/21 13:33:00 EST, Height Start [...] CT measuring 4.1 [address]. 2CT scan 2015 73275; repeat 2028 4colo 2009 nl, repeat 2019 5colo 2019 6egd 2012 no barretts 7colo 2019 8Status post laparotomy with lysis of adhesions and repair of incarcerated ventral hernia. Surgery performed March 2018. 9Thyroid peroxidase antibody positive Vital Signs Most recent to oldest [Reference Range]: 1 Height 155 cm (11/14/21 1:39 PM) Weight 53.0 kg (11/14/21 1:39 PM) Body Mass Index [18.5-24.99] 22.06 (11/14/21 1:39 PM) Blood Pressure [90-138/55-84 mm Hg] 120/ 76mm Hg (11/14/21 1:39 PM) Temperature [96.8-100.4 DegF] 98.0 DegF (11/14/21 1:39 PM) Blood pressure sites Arm, left (11/14/21 1:39 PM) Temperature Route Oral (11/14/21 1:39 PM) Weight Obtained Via Standing scale (11/14/21 1:39 PM) Social History Social History Type Response Smoking Status Former smoker; Other : quit 15 years ago; entered on: 03/16/16 Sex Female
--- OUTSIDE RECORDS SUMMARY | 2024-07-03 12:10 | XMS_ITS | Continuity of Care Document ---
Author Organization [facility] d[facility] Address [address] [place] [address]- Care Team Providers Care Escalator Attendant Name Role Phone Joanna VO, Miko Guillen Primary Care Physician [facility] Date[facility]s): 05/23/23 - 06/22/23 [facility] [address] [place] [address]- Attending Physician: Paco Anderson Admitting Physician: Paco Anderson Referring Physician: AdmtrPaco Allergies, Adverse Reactions, Alerts Substance Reaction Severity Status Adhesive Bandage rash swelling Active Latex rash swelling Active Immunizations Given and Recorded Vaccine Date Status Refusal Reason pneumococcal 20-valent conjugate vaccine 01/19/23 Given influenza virus vaccine, inactivated 06/12/22 Give n [...] virus vaccine, inactivated 6 05/30/10 Gi aubree tetanus-diphtheria toxoids (Td) 10/05/21 Given tetanus-diphtheria toxoids (Td) 7 01/17/04 Given SARS-CoV-2 (COVID-19) mRNA BNT-162b2 vac [...] tetanus/diphtheria/pertussis, acel(Tdap) 07/13/11 Given Pneumococcal Vaccine (oldterm) 8 02/15/10 Given Pneumococcal Vaccine (oldterm) 09/17/04 Given Pneumococcal Vaccine (oldterm) 09/17/03 Given Zostavax (oldterm) 08/18/09 Given Influenza Inactive (IM) (oldterm) 05/26/09 Given Influenza Inactive (IM) (oldterm) 9 06/24/08 Given 1[facility] 2Result Comment: [06/23/2016] HIGH DOSE 3Admin Note: FLUARIX 4Admin Note: VIS GIVEN 5Admin Note: [facility] info given to patient 6Admin Note: [facility] 7Admin Note: historical data 8Admin Note: Information sheet given 9Admin Note: given in clinic Medications Aerochamber See Instructions, # 1 each, Maintenance, use with albuterol inhaler., 11/25/20 9:56:00 EST, Supply,158, cm, 09/30/20 14:41:00 EST, Height Start Date: 11/25/20 Status: Ordered Albuterol (Eqv-ProAir HFA) 90 mcg/inh inhalation aerosol 2 puffs, Inhalation, 4 times a day, WHEN NEEDED FOR WHEEZING., # 25.5 each, 1 Refills, Maintenance,05/25/22 15:32:00 EDT, [facility], 75, INHALE 2 PUFFS 4 TIMES A DAY WHEN NEEDED FOR WHEEZING, 155, cm, 04/27/22 14:46:00 EDT, Height, 52.25, kg, 0... Start Date: 05/25/22 Status: Ordered amLODIPine 10 mg oral tablet 10 mg, 1, tablet, By Mouth, Daily, # 90 tablet, Refills 3, Tot. Refills 3, Maintenance, 11/22/22 16:38:00 EST, Route to Pharmacy Electronically, [facility]/pharmacy #[id number], Partial fill upon patient request if [...] Daily, # 45 tablet, 1 Refills, Maintenance, 05/30/23 8:44:00 EDT, [facility], 155, cm, 02/21/23 10:28:00 EDT, Height, 52.25, kg, 04/27/22 14:46:00 EDT, Dry Weight Start Date: 05/30/23 Status: Ordered budesonide-formoterol 160 mcg-4.5 mcg/inh inhalation aerosol with adapter 2, puffs, Inhalation, 2 times a day, # 30.6 each, Refills 1, Maintenance, 02/23/23 8:46:00 EDT, Route to Pharmacy Electronically, [id number], [facility], 155, cm, 02/21/23 10:28:00 EDT, Height, 52.25, kg, 04/27/22 14:46:... Start Date: 02/23/23 Status: Ordered Centrum Silver By Mouth, Daily, [...] opioid drug. Start Date: 02/21/23 Status: Ordered hydroCHLOROthiazide 12.5 mg oral capsule 1 capsule, By Mouth, Daily, # 90 capsule, 3 Refills, Maintenance, 12/28/22 7:50:00 EDT, [facility], 155, cm, 10/16/22 12:48:00 EST, Height, 52.25, kg, 04/27/22 14:46:00 EDT, Dry Weight Start Date: 12/28/22 Status: Ordered levothyroxine 0.05 mg oral tablet 1 tablet, By Mouth, Daily, # 90 tablet, 1 Refills, Maintenance, 03/06/23 15:55:00 EDT, [facility], 155, cm, 02/21/23 10:28:00 EDT, Height, 52.25, kg, 04/27/22 14:46:00 EDT, Dry Weight Start Date: 03/06/23 Status: Ordered LORazepam 0.5 mg oral tablet 1 tablet = 0.5 mg, By Mouth, Daily, PRN for anxiety, # 24 tablet, 1 Refills, Maintenance, 10/18/22 10:48:00 EST, Tablet, [facility]/pharmacy #7111, 155, cm, 10/16/22 12:48:00 EST, Height, 52.25, kg, 04/27/22 14:46:00 EDT, Dry Weight Start Date: 10/18/22 Status: Ordered losartan 100 mg oral tablet 1 tablet, By Mouth, Daily, # 90 tablet, 3 Refills, Maintenance, 11/22/22 16:38:00 EST, [facility]/pharmacy#7111, 155, cm, 10/16/22 12:48:00 EST, Height, 52.25, kg, 04/27/22 14:46:00 EDT, Dry Weight Start Date: 11/22/22 Status: Ordered magnesium oxide 500 mg oral tablet 1 tablet = 500 mg, By Mouth, Daily, 0 Refills, Maintenance, 06/28/18 10:06:58 EDT Start Date: 06/28/18 Status: Ordered Spiriva HandiHaler 18 mcg inhalation capsule 1 capsule, Inhalation, Daily, # 90 capsule, 1 Refills, Maintenance, 03/21/23 12:14:00 EDT, [facility], 155, cm, 02/21/23 10:28:00 EDT, Height, 52.25, kg, 04/27/22 14:46:00 EDT,Dry Weight Start Date: 03/21/23 Status: Ordered valACYclovir 500 mg oral tablet 1, tablet, By Mouth, Daily, # 30 tablet, Refills 11, Maintenance, 12/22/22 9:50:00 EDT, Route to Pharmacy Electronically, [facility] ST[facility] 9[facility]10, 155, cm, 10/16/22 12:48:00 EST, Height, 52.25, [...] CT measuring 4.1 cm. 2CT scan 2016 22962; repeat 2028 4colo 2008 nl, repeat 2018 [...] Personnel Name: Maria G Mendez RN Position: [facility] RN Member Role: Primary Care Nurse Name: Barby Frias Position: [facility] Outreach Member Role: Lifetime Consulting Physician Name: Miko Marshall MD Position: [facility] Physician - Primary Care Member Role: PCP Address: Address: [address] [place] [address]- [place] Name: Zachary Biswas MD Position: [facility] Renal MD Member Role: Lifetime Consulting Physician Address: Address: [address] [place] [address] [address] [facility] [place] [place] [address]- Name: Moises BAH, Sridhar Position: [facility] RN Member Role: Primary Care Nurse Care Team Related Persons Name: MU CONTRERAS Address: [place] [address] Name: SHANELL COBIAN Address: [address] [address]
--- OUTSIDE RECORDS SUMMARY | 2024-07-03 12:10 | XMS_ITS | Continuity of Care Document ---
Author Organization [facility] Address [address] [place] [address]- Care Team Providers Care Senior Compliance Analyst Name Role Phone Miko Marshall MD Primary Care Physician [phone] Encounter [facility] Date(s): 09/25/23 - 10/28/[address] [address] Attending Physician: Miko Marshall MD Admitting Physician: Miko Marshall MD Referring Physician: Jordy Griggs Allergies, Adverse Reactions, [...] 07/02/21 Recorded SARS-CoV-2 (COVID-19) mRNA BNT-162b2 vac 3/2/21 Recorded SARS-CoV-2 (COVID-19) mRNA BNT-162b2 vac 10/26/20 [...] (oldterm) 10 06/24/08 Give n 1Result Comment: [facility]: [id number] [facility] 3Result Comment: [06/23/2016] HIGH DOSE 4Admin Note: FLUARIX 5Admin Note: VIS GIVEN 6Admin Note: [facility] info given to patient 7Admin Note: [facility]EN [...] 1 Refills, Maintenance,05/25/22 15:32:00 EDT, [facility], 75, INHALE 2 PUFFS 4 TIMES A DAY WHEN NEEDED FOR WHEEZING, 155, cm, 04/27/22 14:46:00 EDT, Height, 52.25, kg, 0... Start Date: 05/25/22 Status: Ordered amLODIPine 10 mg oral tablet 10 mg, 1, tablet, By Mouth, Daily, # 90 tablet, Refills 3, Tot. Refills 3, Maintenance, 11/22/22 16:38:00 EST, [id number] upon patient request if [...] 6 Refills, Maintenance, 06/29/23 15:09:00 EDT[facility], cm, 06/29/23 14:50:00 EDT, Height, 52.25, kg, 04/27/22 14:46:00 EDT, Dry Weight Start Date: 06/29/23 Status: Ordered budesonide-formoterol 160 mcg-4.5 mcg/inh inhalation aerosol with adapter 2, puffs, Inhalation, 2 times a day, # 30.6 each, Refills 1, Maintenance, 08/29/23 5:44:00 EST, Route to Pharmacy Electronically, [id number], [facility], 155, cm, 08/27/23 8:53:00 EST, Height, 52.25, [...] 13:34:00 EST, Route to Pharmacy Electronically, [facility]/pharmacy #[id number], Partial fill upon patient request if the prescription is for a schedule II o... Start Date: 09/28/23 Stop Date: 09/22/24 Status: Ordered fluticasone 50 mcg/inh nasal spray 1 sprays, Nares, Both, 2 times a day, # 16 Gm, 11 Refills, Maintenance, 06/29/23 15:10:00 EDT, Nasal [place], [facility]/pharmacy #7111, Partial fill upon patient request if the prescription is for a scheduleII opioid drug., 1 sprays Nares, Both 2 times a day... Start Date: 06/29/23 Status: Ordered hydroCHLOROthiazide 12.5 mg oral capsule 1 capsule, By Mouth, Daily, # 90 capsule, 3 Refills, Maintenance, 12/28/22 7:50:00 EDT, [facility], 155, cm, 10/16/22 12:48:00 EST, Height, 52.25, kg, 04/27/22 14:46:00 EDT, Dry Weight Start Date: 12/28/22 Status: Ordered levothyroxine 0.05 mg oral tablet 1 tablet, By Mouth, Daily, # 90 tablet, 0 Refills, Maintenance, 08/29/23 5:44:00 EST, [facility], 155, cm, 08/27/23 8:53:00 EST, Height, 52.25, kg, 04/27/22 14:46:00 EDT, Dry Weight Start Date: 08/29/23 Status: Ordered LORazepam 0.5 mg oral tablet 1 tablet = 0.5 mg, By Mouth, Daily, PRN for anxiety, # 24 tablet, 1 Refills, Maintenance, 10/18/22 10:48:00 EST, Tablet, [facility]/pharmacy #7111, 155, cm, 10/16/22 12:48:00 EST, Height, 52.25, kg, 04/27/22 14:46:00 EDT, Dry Weight Start Date: 10/18/22 Status: Ordered losartan 100 mg oral tablet 1 tablet, By Mouth, Daily, # 90 tablet, 3 Refills, Maintenance, 11/22/22 16:38:00 EST, [facility]/pharmacy#7111, 155, cm, 10/16/22 12:48:00 EST, Height, 52.25, kg, 04/27/22 14:46:00 EDT, Dry Weight Start Date: 11/22/22 Status: Ordered magnesium oxide 500 mg oral tablet 1 tablet = 500 mg, By Mouth, Daily, 0 Refills, Maintenance, 06/28/18 10:06:58 EDT Start Date: 06/28/18 Status: Ordered Spiriva HandiHaler 18 mcg inhalation capsule 1 capsule, Inhalation, Daily, # 90 capsule, 1 Refills, Maintenance, 09/11/23 10:37:00 EST, [facility]/pharmacy #7111, 155, cm, 08/27/23 8:53:00 EST, Height, 52.25, kg, 04/27/22 14:46:00 EDT, Dry Weight Start Date: 09/11/23 Status: Ordered valACYclovir 500 mg oral tablet 1, tablet, By Mouth, Daily, # 30 tablet, Refills , Maintenance, 12/22/22 9:50:00 EDT, Route to Pharmacy Electronically, [facility] ST[facility] 54[facility], 155, cm, 10/16/22 12:48:00 EST, Height, 52.25, [...] CT measuring 4.1 cm. 2CT scan 2016 [address]143; repeat 2028 4colo 2008 nl, repeat 2018 [...] Maria G Mendez RN Position: [facility] RN Member Role: Primary Care Nurse Name: Barby Frias Position: [facility] Outreach Member Role: Lifetime Consulting Physician Name: Miko Marshall MD Position: [facility] Physician - Primary Care Member Role: PCP Address: Address: [address] [place] [address]- [place] Name: Zachary Biswas MD Position: [facility] Renal MD Member Role: Lifetime Consulting Physician Address: Address: [address] [place] [address] [address] [facility] [place] [address]- [place] Name: Sridhar De Leon RN Position: [facility] RN Member Role: Primary Care Nurse Care Team Related Persons Name: MU CONTRERAS Address: [place] [address] Name: SHANELL COBIAN Address: home [address] [place] [address]
--- OUTSIDE RECORDS SUMMARY | 2024-07-03 12:10 | XMS_ITS | Continuity of Care Document ---
Author Organization 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 Name Role Phone Miko Marshall MD Primary Care Physician [facility] - 04/24/20 [facility] Adult [address] [place] [address]- [facility] Allergies, Adverse Reactions, Alerts Substance Reaction Severity [...] Note: GIANCARLO 7Result Comment: OOP 8Admin Note: RUDDY 9Admin Note: Information sheet given 10Admin Note: given in clinic 11Admin Note: historical data Medications acetaminophen/butalbital/caffeine 325 mg-50 mg-40 mg oral capsule 1 capsule, By Mouth, Every 4 hours, PRN as needed, not to exceed 6 capsules/day, # 12 capsule, 0 Refills, Maintenance, 01/21/20 11:38:00 EDT, Capsule, [id number], 1 capsule By Mouth Every 4 hours,PRN:as needed,Instr:not to exceed 6 capsules/da... Start Date: 01/21/20 Status: Ordered atorvastatin 10 mg oral tablet 0.5, By Mouth, Daily, # 45 tablet, 1 Refills, Maintenance, 04/06/20 8:27:00 EDT, Tablet, [id number], 158, cm, 03/10/20 14:43:00 EDT, Height, 57.6, kg, 05/21/18 14:53:00 EDT, Dry Weight Start Date: 04/06/20 Status: Ordered Centrum Silver By Mouth, Daily, 0 Refills, Maintenance, 01/11/17 14:23:47 Start Date: 01/11/17 Status: Ordered hydrochlorothiazide-triamterene 25 mg-37.5 mg oral capsule 1 capsule, By Mouth, Daily, # 90 capsule, 1 Refills, Maintenance, 03/17/20 9:27:00 EDT, [id number], 1 capsule By Mouth Daily, 158, cm, 03/10/20 14:43:00 EDT, Height, 57.6, kg, 05/21/18 14:53:00 EDT, Dry Weight Start Date: 03/17/20 Status: Ordered levothyroxine 0.05 mg oral tablet 1 tablet, By Mouth, Daily, # 90 tablet, 1 Refills, Maintenance, 03/13/20 20:13:00 EDT, [facility], 158, cm, 03/10/20 14:43:00 EDT, Height, 57.6, kg, 05/21/18 14:53:00 EDT, Dry Weight Start Date: 03/13/20 Status: Ordered LORazepam 0.5 mg oral tablet 1 tablet = 0.5 mg, By Mouth, Daily, PRN for anxiety, , # 24 tablet, 1 Refills, Maintenance, 09/12/19 13:53:00 EST, Tablet, [facility]/pharmacy #[id number], 158, cm, 05/22/19 10:37:00 EDT, Height, 57.6, kg, 05/21/18 14:53:00 EDT, Dry Weight Start Date: 09/12/19 Status: Ordered losartan 100 mg oral tablet 1 tablet = 100 mg, By Mouth, Daily, replaces valsartan, # 90 tablet, 1 Refills, Maintenance, 03/26/20 14:16:00 EDT, Tablet, [facility]/pharmacy #[id number], replaces valsartan, 158, cm, 03/10/20 14:43:00 EDT, Height, 57.6, kg, 05/21/18 14:53:00 EDT, Dry Weight Start Date: 03/26/20 Status: Ordered magnesium oxide 500 mg oral tablet 1 tablet = 500 mg, By Mouth, Daily, 0 Refills, Maintenance, 06/28/18 10:06:58 EDT Start Date: 06/28/18 Status: Ordered Pepcid 20 mg oral tablet 1 tablet = 20 mg, By Mouth, 2 times a day, PRN Indigestion, # 60 tablet, 1 Refills, Maintenance, 03/26/20 14:17:00 EDT, [facility]/pharmacy #[id number], 158, cm, 03/10/20 14:43:00 EDT, Height, 57.6, kg, 05/21/18 14:53:00 EDT, Dry Weight Start Date: 03/26/20 Stop Date: 05/25/20 Status: Ordered ProAir HFA 90 mcg/inh inhalation aerosol with adapter 2, puffs, Inhalation, 4 times a day, PRN, NEW RX PER AFAY, # 3 each, Refills 1, Tot. Refills 1, Maintenance, 07/30/19 14:51:47 EST, Aerosol, Route to Pharmacy Electronically, [id number], [facility]/pharmacy #[id number] Start Date: 07/30/19 Status: Ordered [...] 12:57:08 EST, Aerosol, Route to Pharmacy Electronically, [id number], [facility], 158, cm, 0... Start Date: 08/21/19 Status: Ordered Valtrex 500 mg oral tablet 500 mg, 1, tablet, By Mouth, Daily, # 30 tablet, Refills 11, Tot. Refills 11, Maintenance, 07/25/1811:27:07 EST, Route to Pharmacy Electronically, [id number], [facility]/pharmacy #[id number] Start Date: 07/25/18 Status: Ordered [...] external hemorr hoids without complication(Confirmed) 7 Active HTN (hypertension)(Confirmed) Active Hypercholesterolemia(Confirmed) Active Insomnia(Confirmed) Active Low back pain(Confirmed) Active Memory disorder(Confirmed) Active Migraine(Confirmed) Active Neck pain(Confirmed) Active Recurrent genital herpes simplex(Confirmed) Active Small bowel obstruction(Confirmed) 8 Active Subclinical hypothyroidism(C onfirmed) 9 Active 1Ascending aortic aneurysm by chest CT measuring 4.1 cm. 2CT scan 201519; repeat 2028 4colo 2008 nl, repeat 2019 5colo 2019 6egd 2012 no barretts 7colo 2018 8Status post laparotomy with lysis of adhesions and repair of incarcerated ventral hernia. Surgery performed March 2018. 9Thyroid peroxidase antibody positive Social History Social History Type Response Smoking Status Former smoker; Other : quit 15 years ago; entered on: 03/16/16 Sex
--- OUTSIDE RECORDS SUMMARY | 2024-07-03 12:10 | XMS_ITS | Continuity of Care Document ---
Author Organization [facility] Eduardo Dawson Durga lt Address [address] [place] [address]- Care Team Providers Care Systems Librarian Name Role Phone Joanna VO, Miko Guillen Primary Care Physician [facility]): 05/17[facility]21 - 06/16/21 [facility] Adult [address] [place] [address]- Allergies, Adverse Reactions, Alerts Substance Reaction Severity Status Adhesive Bandage rash swelling Active Latex rash swelling Active Immunizations Given and Recorded Vaccine Date Status Refusal Reason influenza virus vaccine, inactivated 05/26/21 Stan rded [...] virus vaccine, inactivated 7, 8 05/30/10 Given SARS-CoV-2 (COVID-19) mRNA BNT-162b2 vac 11/16/20 Recorded [...] toxoids (Td) 11 01/17/04 Given 1Location History: [facility] 2Result Comment: [06/23/2016] HIGH DOSE 3Admin Note: FLUARIX 4Admin Note: VIS GIVEN 5Admin Note: [facility] info given to patient 6Admin Note: GIANCARLO [...] 04/15/21 14:11:00 EDT, Route to Pharmacy Electronically, [facility]/pharmacy #[id number], Partial fill upon patient request if the prescription is for a schedul... Start Date: 04/15/21 Status: Ordered atorvastatin 10 mg oral tablet 0.5 tablet, By Mouth, Daily, # 45 tablet, 1 Refills, [facility] STORE 911[facility], 155, cm, 05/16/21 12:39:00 EDT, Height Start Date: 06/07/21 Status: Ordered Centrum Silver By Mouth, Daily, [...] 05/20/21 11:04:00 EDT, Route to Pharmacy Electronically, [facility]/pharmacy #[id number], Partial fill upon patientrequest if the prescription is for a schedule II op... Start Date: 05/20/21 Status: Ordered levothyroxine 0.05 mg oral tablet 1 tablet, By Mouth, Daily, # 90 tablet, 1 Refills, Maintenance, 03/11/21 15:34:00 EDT, [facility], 158, cm, 02/01/21 9:13:00 EDT, Height Start Date: 03/11/21 Status: Ordered LORazepam 0.5 mg oral tablet 1 tablet = 0.5 mg, By Mouth, Daily, PRN for anxiety, # 24 tablet, 1 Refills, Maintenance, 08/09/20 10:16:00 EST, [id number], cm, 08/09/20 9:40:00 EST, Height Start Date: 08/09/20 Status: Ordered losartan 100 mg oral tablet 1 tablet, By Mouth, Daily, # 90 tablet, 1 Refills, Maintenance, 03/19/21 21:39:00 EDT, [facility] STORE [facility], 158, cm, 03/16/21 9:06:00 EDT, Height Start [...] 7:30:00 EST, Aerosol, Route to Pharmacy Electronically, [id number], [facility]/pharmacy #[id number], 158, cm, 09/30/20 1... Start Date: 11/22/20 Stop Date: 01/21/21 Status: Ordered Spiriva HandiHaler 18 mcg inhalation capsule 1 capsule, Inhalation, Daily, # 90 capsule, 1 Refills, Maintenance, 02/22/21 14:59:00 EDT, [facility], 158, cm, 02/01/21 9:13:00 EDT, Height Start Date: 02/22/21 Status: Ordered Symbicort 160mcg/4.5mcg Inhaler 2, puffs, Inhalation, 2 times a day, 90 DAY SUPPLY, # 3 each, Refills 1, Tot. Refills 1, Maintenance, 01/04/21 11:06:00 EDT, Aerosol, Route to Pharmacy Electronically, [id number], [id number] 158, cm, 09/30/20 14:41:0... Start Date: 01/04/21 Status: Ordered Valtrex 500 mg oral tablet 500 mg, 1, tablet, By Mouth, Daily, # 30 tablet, Refills 11, Tot. Refills 11, Maintenance, 10/19/2111:02:00 EST, [id number] 158, cm, 09/30/20 14:41:00 EST,Height Start [...] CT measuring 4.1 cm. 2CT scan 2015 [address]3437; repeat 2028 4colo 2009 nl, repeat 2019 [...]
--- OUTSIDE RECORDS SUMMARY | 2024-07-03 12:10 | XMS_ITS | Continuity of Care Document ---
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 Name Role Phone Miko Marshall MD Primary Care Physician [phone] [facility]s): 02[facility]21/23 - 03/23/23 [facility] Eduardo Dawson Adult [address] [place] [address]- Attending Physician: Admtr, Ar8 Admitting Physician: Admtr, Ar8 Referring Physician: Admtr, Ar8 Allergies, Adverse Reactions, [...] 05/30/10 Gi aubree influenza virus vaccine, inactivated , 8 05/30/10 Given tetanus-diphtheria toxoids (Td) 10/05/21 Given tetanus-diphtheria toxoids (Td) 9 01/17/04 Given SARS-CoV-2 (COVID-19) mRNA BNT-162b2 vac [...] Inactive (IM) (oldterm) 11 06/24/08 Give n [facility] 2Result Comment: [06/23/2016] HIGH DOSE 3Admin Note: FLUARIX 4Admin Note: VIS GIVEN 5Admin Note: [facility] info given to patient 6Admin Note: GIANCARLO 7Result Comment: OOP 8Admin Note: [facility] 9Admin Note: historical data 10Admin Note: Information sheet given 11Admin Note: [...] 1 Refills, Maintenance,05/25/22 15:32:00 EDT, [facility], 75, INHALE 2 PUFFS 4 TIMES A DAY WHEN NEEDED FOR WHEEZING, 155, cm, 04/27/22 14:46:00 EDT, Height, 52.25, kg, 0... Start Date: 05/25/22 Status: Ordered amLODIPine 10 mg oral tablet 10 mg, 1, tablet, By Mouth, Daily, # 90 tablet, Refills 3, Tot. Refills 3, Maintenance, 11/22/22 16:38:00 EST, Route to Pharmacy Electronically, [facility]/pharmacy #[id number], Partial fill upon patient request if [...] tablet, 3 Refills, 04/10/22 13:41:00 EDT, [facility]/pharmacy #7111, 155, cm, 04/10/22 13:29:00 EDT, Height Start Date: 04/10/22 Status: Ordered budesonide-formoterol 160 mcg-4.5 mcg/inh inhalation aerosol with adapter 2, puffs, Inhalation, 2 times a day, # 30.6 each, Refills 1, Maintenance, 02/23/23 8:46:00 EDT, Route to Pharmacy Electronically, [id number], [facility] ST[facility], 155, cm, 02/21/23 10:28:00 EDT, Height, 52.25, [...] Refills, Maintenance, 12/28/22 7:50:00 EDT, [facility], 155, cm, 10/16/22 12:48:00 EST, Height, 52.25, kg, 04/27/22 14:46:00 EDT, Dry Weight Start Date: 12/28/22 Status: Ordered levothyroxine 0.05 mg oral tablet 1 tablet, By Mouth, Daily, # 90 tablet, 1 Refills, Maintenance, 03/06/23 15:55:00 EDT, [facility], 155, cm, 02/21/23 10:28:00 EDT, Height, 52.25, kg, 04/27/22 14:46:00 EDT, Dry Weight Start Date: 03/06/23 Status: Ordered LORazepam 0.5 mg oral tablet 1 tablet = 0.5 mg, By Mouth, Daily, PRN for anxiety, # 24 tablet, 1 Refills, Maintenance, 10/18/22 10:48:00 EST, Tablet, [facility]/pharmacy #[id number], 155, cm, 10/16/22 12:48:00 EST, Height, 52.25, kg, 04/27/22 14:46:00 EDT, Dry Weight Start Date: 10/18/22 Status: Ordered losartan 100 mg oral tablet 1 tablet, By Mouth, Daily, # 90 tablet, 3 Refills, Maintenance, 11/22/22 16:38:00 EST, [facility]/pharmacy#7111, 155, cm, 10/16/22 12:48:00 EST, Height, 52.25, kg, 04/27/22 14:46:00 EDT, Dry Weight Start Date: 11/22/22 Status: Ordered magnesium oxide 500 mg oral tablet 1 tablet = 500 mg, By Mouth, Daily, 0 Refills, Maintenance, 06/28/18 10:06:58 EDT Start Date: 06/28/18 Status: Ordered Spiriva HandiHaler 18 mcg inhalation capsule 1 capsule, Inhalation, Daily, # 90 capsule, 1 Refills, Maintenance, 03/21/23 12:14:00 EDT, [facility], 155, cm, 02/21/23 10:28:00 EDT, Height, 52.25, kg, 04/27/22 14:46:00 EDT,Dry Weight Start Date: 03/21/23 Status: Ordered valACYclovir 500 mg oral tablet 1, tablet, By Mouth, Daily, # 30 tablet, Refills 11, Maintenance, 12/22/22 9:50:00 EDT, Route to Pharmacy Electronically, [facility] 00[facility], 155, cm, 10/16/22 12:48:00 EST, Height, 52.25, [...] CT measuring 4.[address]. 2[address] scan 2016 59571; repeat 2028 4colo 2008 nl, repeat 2018 5Problem added by Discern Expert 6colo 2018 7egd 2012 no barretts 8colo 2018 9Status post laparotomy with lysis of adhesions and repair of incarcerated ventral hernia. Surgery performed March 2018. 10Thyroid peroxidase antibody positive Vital Signs Most recent to oldest [Reference Range]: 1 Blood Pressure [90-138/55-84 mm Hg] 168/ 94mm Hg *H* (02/19/17 9:37 AM) Social History Social History Type Response Smoking Status Former smoker; Other : quit 15 years ago; entered on: 03/16/16 Sex Female EKG study * Event Display: EKG Authored Date: * Event Display: EKG Authored Date: Cardiology * Event Display: Device Check Office Visit Authored Date: * Event Display: Device Check Office Visit Authored Date: * Event Display: Device Check Office Visit Authored Date: * Sofia Rice: PERFORM Event Display: Cardiovascular Results Scanned Authored Date: Radiology * Event Display: CT Scan Sinus, Non- BH Authored Date: * Event Display: Bone Density Authored Date: * Event Display: X-Ray Chest, Non- BH Authored Date: * Event Display: Non BH Radiology Results Authored Date: * Event Display: Non BH Radiology Results Authored Date: * Apolonia Saldaña: PERFORM Event Display: Radiology Results Scanned Authored Date: MG Breast Views * Event Display: MM Mammogram, Non- BH Authored Date: * Event Display: MM Mammogram, Non- BH Authored Date: * Event Display: MM Mammogram, Non- BH Authored Date: Patient Care team information Care Team Personnel Name: Maria G Mendez RN Position: [facility] RN Member Role: Primary Care Nurse Name: Barby Frias Position: [facility] Outreach Member Role: Lifetime Consulting Physician Name: Miko Marshall MD Position: [facility] Physician - Primary Care Member Role: PCP Address: Address: [address] [place] [address]- [place] Name: Zachary Biswas MD Position: [facility] Renal MD Member Role: Lifetime Consulting Physician Address: Address: [address] [place] [address] [address] [facility] [place] [address]- [place] Name: Sridhar De Leon RN Position: [facility] RN Member Role: Primary Care Nurse Care Team Related Persons Name: MU CONTRERAS Address: [place] [address] Name: SHANELL COBIAN Address: [address] [address]
--- OUTSIDE RECORDS SUMMARY | 2024-07-03 12:10 | XMS_ITS | Continuity of Care Document ---
Author Organization [facility] Samir Durga lt Address [address] [place] [address]- Care Team Providers Care Solvent Station Attendant Name Role Phone Miko Marshall MD Primary Care Physician [facility]): [facility]21 - 03/23/21 [facility] Adult [address] [place] [address]- Encounter Diagnosis Alcohol intake above recommended sensible limits without complication(Discharge Diagnosis) - 03/16/21 Ascending aortic aneurysm(Discharge Diagnosis) - 03/16/21 Attending Physician: Miko Marshall MD Allergies, Adverse Reactions, [...] tablet, Refills 1, Tot. Refills 1, Maintenance, 02/22/21 15:00:00 EDT, Route to Pharmacy Electronically, [facility]/pharmacy #7177, Partial fill upon patient requestif the prescription is for a schedule II opioid tian... Start Date: 02/22/21 Status: Ordered atorvastatin 10 mg oral tablet 0.5, By Mouth, Daily, # 45 tablet, 1 Refills, Maintenance, 10/16/20 11:28:00 EST, Tablet, [facility]/pharmacy #7111, 158, cm, 09/30/20 14:41:00 EST, Height Start Date: 10/16/20 Status: Ordered Centrum Silver By Mouth, Daily, 0 Refills, Maintenance, 01/11/17 14:23:47 Start Date: 01/11/17 Status: Ordered cloNIDine 0.2 mg oral tablet 0.2 mg, 1, tablet, By Mouth, 2 times a day, # 60 tablet, Refills 11, Tot. Refills 11, Maintenance, 03/16/21 9:37:00 EDT, Route to Pharmacy Electronically, [facility]/pharmacy #[id number], Partial fill upon patient request if the prescription is for a schedule II o... Start Date: 03/16/21 Status: Ordered levothyroxine 0.05 mg oral tablet 1 tablet, By Mouth, Daily, # 90 tablet, 1 Refills, Maintenance, 03/11/21 15:34:00 EDT, [facility], 158, cm, 02/01/21 9:13:00 EDT, Height Start Date: 03/11/21 Status: Ordered LORazepam 0.5 mg oral tablet 1 tablet = 0.5 mg, By Mouth, Daily, PRN for anxiety, # 24 tablet, 1 Refills, Maintenance, 08/09/20 10:16:00 EST, Tablet, [facility]/pharmacy #7111, 158, cm, 08/09/20 9:40:00 EST, Height Start Date: 08/09/20 Status: Ordered losartan 100 mg oral tablet 1 tablet, By Mouth, Daily, # 90 tablet, 1 Refills, Maintenance, 03/19/21 21:39:00 EDT, [facility], 158, cm, 03/16/21 9:06:00 EDT, Height Start [...] 7:30:00 EST, Aerosol, Route to Pharmacy Electronically, [id number], [facility]/pharmacy #7111, 158, cm, 09/30/20 1... Start Date: 11/22/20 Stop Date: 01/21/21 Status: Ordered Spiriva HandiHaler 18 mcg inhalation capsule 1 capsule, Inhalation, Daily, # 90 capsule, 1 Refills, Maintenance, 02/22/21 14:59:00 EDT, [facility], [facility], cm, 02/01/21 9:13:00 EDT, Height Start Date: 02/22/21 Status: Ordered Symbicort 160mcg/4.5mcg Inhaler 2, puffs, Inhalation, 2 times a day, 90 DAY SUPPLY, # 3 each, Refills 1, Tot. Refills 1, Maintenance, 01/04/21 11:06:00 EDT, Aerosol, Route to Pharmacy Electronically, [id number], [id number], cm, 09/30/20 14:41:0... Start Date: 01/04/21 Status: Ordered Valtrex 500 mg oral tablet 500 mg, 1, tablet, By Mouth, Daily, # 30 tablet, Refills 11, Tot. Refills 11, Maintenance, 10/19/2111:02:00 EST, [id number] 158, cm, 09/30/20 14:41:00 EST,Height [...] CT measuring 4.[address]. 2CT scan 2016 35858; repeat 2028 4colo 2009 nl, repeat 2019 5colo 2019 6egd 2012 no barretts 7colo 2019 8Status post laparotomy with lysis of adhesions and repair of incarcerated ventral hernia. Surgery performed March 2018. 9Thyroid peroxidase antibody positive Diagnosis Diagnosis Type Effective Dates Health Status Clinical Service Informant Alcohol intake above recommended sensible limits without complication Discharge Diagnosis 03/16/21 Ascending aortic aneurysm Discharge Diagnosis 03/16/21 Vital Signs Most recent to oldest [Reference Range]: 1 2 Height 158 cm (03/16/21 9:06 AM) 158 cm (03/16/21 8:55 AM) Weight 55.7 kg (03/16/21 8:55 AM) Oxygen Saturation [94-100 %] 98 % (03/16/21 8:55 AM) Pulse Rate [55-90 bpm] 62 bpm (03/16/21 8:55 AM) Body Mass Index [18.5-24.99] 22.31 (03/16/21 8:55 AM) Blood Pressure [90-138/55-84 mm Hg] 152/ 86mm Hg *H* (03/16/21 9:06 AM) 152/92mm Hg *H* (03/16/21 8:55 AM) Respiratory Rate [16-30 br/min] 12 br/mi n *L* (03/16/21 8:55 AM) Mode of Delivery (Oxygen) Room air (03/16/21 8:55 AM) Blood pressure sites Arm, left (03/16/21 9:06 AM) Arm, left (03/16/21 8:55 AM) Weight Obtained Via Standing scale (03/16/21 8:55 AM) Social History Social History Type Response Smoking Status Former smoker; Other : quit 15 years ago; entered on: 03/16/16 Sex Female
--- OUTSIDE RECORDS SUMMARY | 2024-07-03 12:10 | XMS_ITS | Continuity of Care Document ---
Author Organization [facility] Address [address] [place] [address]- Care Team Providers Care Door Framer Name Role Phone Miko Marshall MD Primary Care Physician [phone] [facility]): 03[facility]03/24 - 04/02/24 [facility] [address] [place] [address]- Attending Physician: Paco Anderson Admitting Physician: Paco Anderson Referring Physician: Admtr, Paco Allergies, Adverse Reactions, Alerts Substance Reaction Severity [...] (oldterm) 10 06/24/08 Give n 1Result Comment: [facility]: [id number] [facility] 3Result Comment: [06/23/2016] HIGH DOSE 4Admin Note: FLUARIX 5Admin Note: VIS GIVEN 6Admin Note: [facility] info given to patient 7Admin Note: [...] 3 Refills, Maintenance, 01/01/25 15:18:00 EDT, [id number], Partial fill upon patient request if the prescription is for a schedule II opioid drug., 155,... Start Date: 01/01/25 Stop Date: 12/27/25 Status: Ordered albuterol 0.083% inhalation solution 3 mL = 2.5 mg, Inhalation, Every 6 hours, for 90 days, use with nebulizer, # 1,080 mL, 3 Refills, Hard Stop 01/01/25 15:18:00 EDT, 01/07/24 15:18:00 EDT, Solution, [facility]/pharmacy #[id number], Partial fill upon patient request if the prescription is for a sche... Start Date: 01/07/24 Stop Date: 01/01/25 Status: Ordered amLODIPine 10 mg oral tablet 1 tablet, By Mouth, Daily, # 90 tablet, 1 Refills, Maintenance, 12/22/23 8:21:00 EDT, [facility]/pharmacy #[id number], 155, cm, 10/12/23 16:44:00 EST, Height, [...] tablet, 6 Refills, Maintenance, 06/29/23 15:09:00 EDT, [facility]/pharmacy #[id number], 155, cm, 06/29/23 14:50:00 EDT, Height, 52.25, kg, 04/27/22 14:46:00 EDT, Dry Weight Start Date: 06/29/23 Status: Ordered budesonide-formoterol 160 mcg-4.5 mcg/inh inhalation aerosol with adapter 2, puffs, Inhalation, 2 times a day, # 30.6 each, Refills 11, Tot. Refills 11, Maintenance, 03/03/24 11:43:00 EDT, Route to Pharmacy Electronically, [id number], [facility]/pharmacy#[id number], 155, cm, 03/03/24 8:56:00 EDT, Height, 52.25... [...] 09/28/23 13:34:00 EST, Route to Pharmacy Electronically, [facility]/pharmacy #[id number], Partial fill upon patient request if the prescription is for a schedule II o... Start Date: 09/28/23 Stop Date: 09/22/24 Status: Ordered fluticasone 50 mcg/inh nasal spray 1 sprays, Nares, Both, 2 times a day, # 16 Gm, 11 Refills, Maintenance, 06/29/23 15:10:00 EDT, Nasal Page, [facility]/pharmacy #[id number], Partial fill upon patient request if the prescription is for a scheduleII opioid drug., 1 sprays Nares, Both 2 times a day... Start Date: 06/29/23 Status: Ordered hydroCHLOROthiazide 12.5 mg oral capsule 1 capsule, By Mouth, Daily, # 90 capsule, 1 Refills, Maintenance, 03/14/24 11:38:00 EDT, [facility]/pharmacy #[id number], 155, cm, 03/03/24 8:56:00 EDT, Height, 52.25, kg, 04/27/22 14:46:00 EDT, Dry Weight Start Date: 03/14/24 Status: Ordered levothyroxine 0.05 mg oral tablet 1 tablet, By Mouth, Daily, # 90 tablet, 1 Refills, Maintenance, 02/26/24 4:51:00 EDT, [facility]/pharmacy #[id number], 155, cm, 01/17/24 10:49:00 EDT, Height, 52.25, kg, 04/27/22 14:46:00 EDT, Dry Weight Start Date: 02/26/24 Status: Ordered LORazepam 0.5 mg oral tablet 1 tablet = 0.5 mg, By Mouth, Daily, PRN for anxiety, # 24 tablet, 1 Refills, Maintenance, 12/11/23 9:46:00 EDT, Tablet, [facility]/pharmacy #[id number], 155, cm, 10/12/23 16:44:00 EST, Height, 52.25, kg, 04/27/2214:46:00 EDT, Dry Weight Start Date: 12/11/23 Status: Ordered losartan 100 mg oral tablet 1 tablet, By Mouth, Daily, # 90 tablet, 1 Refills, Maintenance, 12/22/23 8:20:00 EDT, [facility]/pharmacy #[id number], 155, cm, 10/12/23 16:44:00 EST, Height, [...] capsule, 4 Refills, Maintenance, 03/03/24 13:00:00 EDT, [facility]/pharmacy #[id number], 155, cm, 03/03/24 8:56:00 EDT, Height, 52.25, kg, 04/27/22 14:46:00 EDT, Dry Weight Start Date: 03/03/24 Status: Ordered Spiriva HandiHaler 18 mcg inhalation capsule 1 capsule = 18 mcg, Inhalation, Daily, # 90 capsule, 3 Refills, Maintenance, 01/07/24 15:17:00 EDT,[facility]/pharmacy #[id number], Partial fill upon patient request if the prescription is for a schedule II opioid drug., 155, cm, 01/07/24 14:45:00 EDT, Height, 52... Start Date: 01/07/24 Stop Date: 01/01/25 Status: Ordered Symbicort 160mcg/4.5mcg Inhaler 2, puffs, Inhalation, 2 times a day, # 3 each, Refills 3, Tot. Refills 3, Maintenance, 01/07/24 15:17:00 EDT, Aerosol, Route to Pharmacy Electronically, [id number], [facility]/pharmacy #[id number], 155, cm, 01/07/24 14:45:00 EDT, Height,... Start Date: 01/07/24 Stop Date: 01/01/25 Status: Ordered valACYclovir 500 mg oral tablet 1, tablet, By Mouth, Daily, # 90 tablet, Refills 1, Tot. Refills 1, Maintenance, 03/14/24 11:38:00 EDT, Route to Pharmacy Electronically, [facility]/pharmacy #[id number], 155, cm, 03/03/24 8:56:00 EDT, Height, 52.25, kg, 04/27/22 14:46:00 EDT, Dry Weight Start Date: 03/14/24 Status: Ordered Ventolin HFA 108 mcg/inh inhalation aerosol with adapter 2 puffs, Inhalation, Every 6 hours, PRN for wheezing, # 8 Gm, 11 Refills, Maintenance, 11/20/23 9:54:00 EST, Aerosol, [facility]/pharmacy #[id number], Partial fill upon patient request [...] CT measuring 4.1 cm. 2CT scan 2015 [id number]; repeat 2028 4colo 2008 nl, repeat 2019 [...] Physician Name: Joanna VO, Miko Guillen Position: [facility] Physician - Primary Care Member Role: PCP Address: Address: [address] [place] [address]- [place] Name: Zachary Biswas MD Position: [facility] Renal MD Member Role: Lifetime Consulting Physician Address: Address: [address] [facility] [place] [address]- [place] Name: Moises BAH, Sridhar Position: [facility] RN Member Role: Primary Care Nurse Care Team Related Persons Name: MU CONTRERAS Address: [place] [address] Name: SHANELL COBIAN Address: home [address] [place] [id number]
--- OUTSIDE RECORDS SUMMARY | 2024-07-03 12:10 | XMS_ITS | Continuity of Care Document ---
Author Organization [facility] Samir Durga lt Address [address] [place] [address]- Care Team Providers Care Director Of Operations Name Role Phone Joanna VO, Miko Guillen Primary Care Physician [phone] [facility] 09[facility]20 - 10/30/20 [facility] [address] [place] [address]- Attending Physician: Admtr, Max8 Admitting Physician: Admtr, Ar8 Referring Physician: Admtr, [...] FLUARIX 4Admin Note: VIS GIVEN 5Admin Note: [facility] info given to patient 6Admin Note: GIANCARLO 7Result Comment: OOP 8Admin Note: WALPARKERT 9Admin Note: Information sheet given 10Admin Note: given in clinic 11Admin Note: historical data Medications acetaminophen/butalbital/caffeine 325 mg-50 mg-40 mg oral capsule 1 capsule, By Mouth, Every 4 hours, PRN as needed, not to exceed 6 capsules/day, # 12 capsule, 0 Refills, Maintenance, 01/21/20 11:38:00 EDT, Capsule, [facility]/pharmacy #[id number], 1 capsule By Mouth Every 4 hours,PRN:as needed,Instr:not to exceed 6 capsules/da... Start Date: 01/21/20 Status: Ordered amLODIPine 2.5 mg oral tablet 2.5 mg, 1, tablet, By Mouth, Daily, # 30 tablet, Refills 5, Tot. Refills 5, Maintenance, 09/01/20 11:20:00 EST, Route to Pharmacy Electronically, [facility]/pharmacy #[id number], Partial fill upon patient requestif the prescription is for a schedule II opioid tian... Start Date: 09/01/20 Status: Ordered atorvastatin 10 mg oral tablet 0.5, By Mouth, Daily, # 45 tablet, 1 Refills, Maintenance, 10/16/20 11:28:00 EST, Tablet, [facility]/pharmacy #[id number], 158, cm, 09/30/20 14:41:00 EST, Height Start Date: 10/16/20 Status: Ordered Centrum Silver By Mouth, Daily, 0 Refills, Maintenance, 01/11/17 14:23:47 Start Date: 01/11/17 Status: Ordered cloNIDine 0.1 mg oral tablet 0.1 mg, 1, tablet, By Mouth, 2 times a day, # 60 tablet, Refills 5, Tot. Refills 5, Maintenance, 09/01/20 11:20:00 EST, Route to Pharmacy Electronically, [facility]/pharmacy #[id number], Partial fill upon patientrequest if the prescription is for a schedule II op... Start Date: 09/01/20 Status: Ordered levothyroxine 0.05 mg oral tablet 1 tablet, By Mouth, Daily, # 90 tablet, 1 Refills, Maintenance, 09/07/20 9:19:00 EST, [facility]/pharmacy #[id number], 158, cm, 09/01/20 9:29:00 EST, Height Start Date: 09/07/20 Status: Ordered LORazepam 0.5 mg oral tablet 1 tablet = 0.5 mg, By Mouth, Daily, PRN for anxiety, # 24 tablet, 1 Refills, Maintenance, 08/09/20 10:16:00 EST, Tablet, [facility]/pharmacy #[id number], 158, cm, 08/09/20 9:40:00 EST, Height Start Date: 08/09/20 Status: Ordered losartan 100 mg oral tablet 1 tablet = 100 mg, By Mouth, Daily, # 30 tablet, 5 Refills, Maintenance, 09/01/20 11:21:00 EST, Tablet, [facility]/pharmacy #[id number], Partial fill upon patient request if [...] tablet, 1 Refills, Maintenance, 03/26/20 14:17:00 EDT, [facility]/pharmacy #[id number], 158, cm, 03/10/20 14:43:00 EDT, Height, 57.6, kg, 05/21/18 14:53:00 EDT, Dry Weight Start Date: 03/26/20 Stop Date: 05/25/20 Status: Ordered ProAir HFA 90 mcg/inh inhalation aerosol with adapter 2, puffs, Inhalation, 4 times a day, PRN, NEW RX PER AFAY, # 3 each, Refills 1, Tot. Refills 1, Maintenance, 07/30/19 14:51:47 EST, Aerosol, Route to Pharmacy Electronically, [id number], [facility]/pharmacy #[id number] Start Date: 07/30/19 Status: Ordered Spiriva [...] 12:01:00 EDT, Aerosol, Route to Pharmacy Electronically, [id number], [facility]/pharmacy #[id number], 158, cm, 06/21/20 12:56:0... Start Date: 06/30/20 Status: Ordered Valtrex 500 mg oral tablet 500 mg, 1, tablet, By Mouth, Daily, # 30 tablet, Refills 11, Tot. Refills 11, Maintenance, 10/19/2111:02:00 EST, Route to Pharmacy Electronically, [facility]/pharmacy #[id number], 158, cm, 09/30/20 14:41:00 EST,Height Start [...]
--- OUTSIDE RECORDS SUMMARY | 2024-07-03 12:10 | XMS_ITS | Continuity of Care Document ---
Author Organization [facility] Address [address] [place] [address]- Care Team Providers Care Textile Colorist Formulator Name Role Phone Miko Marshall MD Primary Care Physician [phone] [facility] 01[facility]10[facility]24 - 02/09/24 [facility] [address] [place] [address] Allergies, Adverse Reactions, Alerts Substance Reaction Severity [...] (oldterm) 10 06/24/08 Give n 1Result Comment: [facility]: [id number] 2[facility] 3Result Comment: [06/23/2016] HIGH DOSE 4Admin Note: FLUARIX 5Admin Note: VIS GIVEN 6Admin Note: [facility] info given to patient 7Admin Note: [facility]EN [...] 3 Refills, Maintenance, 01/01/25 15:18:00 EDT, Solution, [facility]/pharmacy #[id number], Partial fill upon patient request if the prescription is for a schedule II opioid drug., 155,... Start Date: 01/01/25 Stop Date: 12/27/25 Status: Ordered albuterol 0.083% inhalation solution 3 mL = 2.5 mg, Inhalation, Every 6 hours, for 90 days, use with nebulizer, # 1,080 mL, 3 Refills, Hard Stop 01/01/25 15:18:00 EDT, 01/07/24 15:18:00 EDT, Solution, [facility]/pharmacy #[id number], Partial fill upon patient request if the prescription is for a sche... Start Date: 01/07/24 Stop Date: 01/01/25 Status: Ordered amLODIPine 10 mg oral tablet 1 tablet, By Mouth, Daily, # 90 tablet, 1 Refills, Maintenance, 12/22/23 8:21:00 EDT, [facility]/pharmacy #[id number], 155, cm, 10/12/23 16:44:00 [...] tablet, 6 Refills, Maintenance, 06/29/23 15:09:00 EDT, [facility]/pharmacy #[id number], 155, cm, 06/29/23 14:50:00 EDT, Height, 52.25, kg, 04/27/22 14:46:00 EDT, Dry Weight Start Date: 06/29/23 Status: Ordered budesonide-formoterol 160 mcg-4.5 mcg/inh inhalation aerosol with adapter 2, puffs, Inhalation, 2 times a day, # 30.6 each, Refills 11, Tot. Refills 11, Maintenance, 11/20/23 9:54:00 EST, Route to Pharmacy Electronically, [id number], [facility]/pharmacy #[id number], 155, cm, 10/12/23 16:44:00 [...] 09/28/23 13:34:00 EST, Route to Pharmacy Electronically, [facility]/pharmacy #[id number], Partial fill upon patient request if the prescription is for a schedule II o... Start Date: 09/28/23 Stop Date: 09/22/24 Status: Ordered fluticasone 50 mcg/inh nasal spray 1 sprays, Nares, Both, 2 times a day, # 16 Gm, 11 Refills, Maintenance, 06/29/23 15:10:00 EDT, Nasal [place], [facility]/pharmacy #[id number], Partial fill upon patient request if the prescription is for a scheduleII opioid drug., 1 sprays Nares, Both 2 times a day... Start Date: 06/29/23 Status: Ordered hydroCHLOROthiazide 12.5 mg oral capsule 1 capsule, By Mouth, Daily, # 90 capsule, 3 Refills, Maintenance, 12/28/22 7:50:00 EDT, [id number], 155, cm, 10/16/22 12:48:00 EST, Height, 52.25, kg, 04/27/22 14:46:00 EDT, Dry Weight Start Date: 12/28/22 Status: Ordered levothyroxine 0.05 mg oral tablet 1 tablet, By Mouth, Daily, # 90 tablet, 0 Refills, Maintenance, 11/26/23 9:51:00 EDT, [id number], 155, cm, 10/12/23 16:44:00 EST, Height, 52.25, kg, 04/27/22 14:46:00 EDT, Dry Weight Start Date: 11/26/23 Status: Ordered LORazepam 0.5 mg oral tablet 1 tablet = 0.5 mg, By Mouth, Daily, PRN for anxiety, # 24 tablet, 1 Refills, Maintenance, 12/11/23 9:46:00 EDT, Tablet, [facility]/pharmacy #[id number], 155, cm, 10/12/23 16:44:00 EST, Height, 52.25, kg, 04/27/2214:46:00 EDT, Dry Weight Start Date: 12/11/23 Status: Ordered losartan 100 mg oral tablet 1 tablet, By Mouth, Daily, # 90 tablet, 1 Refills, Maintenance, 12/22/23 8:20:00 EDT, [facility]/pharmacy #[id number], 155, cm, 10/12/23 16:44:00 [...] capsule, 4 Refills, Maintenance, 11/20/23 9:54:00 EST, [facility]/pharmacy #[id number], 155, cm, 10/12/23 16:44:00 EST, Height, 52.25, kg, 04/27/22 14:46:00 EDT, Dry Weight Start Date: 11/20/23 Status: Ordered Spiriva HandiHaler 18 mcg inhalation capsule 1 capsule = 18 mcg, Inhalation, Daily, # 90 capsule, 3 Refills, Maintenance, 01/07/24 15:17:00 EDT,[facility]/pharmacy #[id number], Partial fill upon patient request if the prescription is for a schedule II opioid drug., 155, cm, 01/07/24 14:45:00 EDT, Height, 52... Start Date: 01/07/24 Stop Date: 01/01/25 Status: Ordered Symbicort 160mcg/4.5mcg Inhaler 2, puffs, Inhalation, 2 times a day, # 3 each, Refills 3, Tot. Refills 3, Maintenance, 01/07/24 15:17:00 EDT, Aerosol, Route to Pharmacy Electronically, [id number], [facility]/pharmacy #[id number], 155, cm, 01/07/24 14:45:00 EDT, Height,... Start Date: 01/07/24 Stop Date: 01/01/25 Status: Ordered valACYclovir 500 mg oral tablet 1, tablet, By Mouth, Daily, # 30 tablet, Refills 11, Maintenance, 12/22/22 9:50:00 EDT, Route to Pharmacy Electronically, [facility] [id number], 155, cm, 10/16/22 12:48:00 EST, Height, 52.25, kg, 04/27/22 14:46:00 EDT, Dry Weight Start Date: 12/22/22 Status: Ordered Ventolin HFA 108 mcg/inh inhalation aerosol with adapter 2 puffs, Inhalation, Every 6 hours, PRN for wheezing, # 8 Gm, 11 Refills, Maintenance, 11/20/23 9:54:00 EST, Aerosol, [facility]/pharmacy #[id number], Partial fill upon patient [...] CT measuring 4.1 cm. 2CT scan 2015 [id number]; repeat 2028 4colo 2008 nl, repeat 2018 [...] Personnel Name: Maria G Mendez RN Position: [facility] RN Member Role: Primary Care Nurse Name: Barby Frias Position: [facility] Outreach Member Role: Lifetime Consulting Physician Name: Miko Marshall MD Position: [facility] Physician - Primary Care Member Role: PCP Address: Address: [address] [place], [place] [address] [place] [address]- [place] Name: Zachary Biswas MD Position: [facility] Renal MD Member Role: Lifetime Consulting Physician Address: Address: [address] [facility] [place] [address]- Name: Sridhar De Leon RN Position: [facility] RN Member Role: Primary Care Nurse Care Team Related Persons Name: MU CONTRERAS Address: [place] [address] Name: SHANELL COBIAN Address: home [address] [place] [address]
--- OUTSIDE RECORDS SUMMARY | 2024-07-03 12:10 | XMS_ITS | Continuity of Care Document ---
Author Organization [facility] Address [address], [address] [place] [address]- Care Team Providers Care Orthodontic Technician Assistant Name Role Phone Joanna VO, Alexa Guillen Primary Care Physician [phone] Encounter 04/27/21 - 05/04/21 [facility] [address], [address] [place] [address]- Attending Physician: Alexa Farrell MD Admitting Physician: Alexa Farrell MD Referring Physician: Alexa Farrell MD Allergies, Adverse Reactions, Alerts Substance [...] 04/15/21 14:11:00 EDT, Route to Pharmacy Electronically, [facility]/pharmacy #[id number], Partial fill upon patient request if the prescription is for a schedul... Start Date: 04/15/21 Status: Ordered atorvastatin 10 mg oral tablet 0.5, By Mouth, Daily, # 45 tablet, 1 Refills, Maintenance, 10/16/20 11:28:00 EST, Tablet, [facility]/pharmacy #7111, 158, cm, 09/30/20 14:41:00 EST, Height Start Date: 10/16/20 Status: Ordered Centrum Silver By Mouth, Daily, 0 Refills, Maintenance, 01/11/17 14:23:47 Start Date: 01/11/17 Status: Ordered cloNIDine 0.1 mg oral tablet 0.1 mg, 1, tablet, By Mouth, 2 times a day, # 180 tablet, Refills 0, Tot. Refills 0, Maintenance, 04/15/21 14:09:00 EDT, Do Not Route, Partial fill upon patient request if the prescription is for a schedule II opioid drug. Start Date: 04/15/21 Status: Ordered levothyroxine 0.05 mg oral tablet 1 tablet, By Mouth, Daily, # 90 tablet, 1 Refills, Maintenance, 03/11/21 15:34:00 EDT, [facility], 158, cm, 02/01/21 9:13:00 EDT, Height Start Date: 03/11/21 Status: Ordered LORazepam 0.5 mg oral tablet 1 tablet = 0.5 mg, By Mouth, Daily, PRN for anxiety, # 24 tablet, 1 Refills, Maintenance, 08/09/20 10:16:00 EST, Tablet, [facility]/pharmacy #7111, 158, cm, 08/09/20 9:40:00 EST, Height Start Date: 08/09/20 Status: Ordered losartan 100 mg oral tablet 1 tablet, By Mouth, Daily, # 90 tablet, 1 Refills, Maintenance, 03/19/21 21:39:00 EDT, [facility], 158, cm, 03/16/21 9:06:00 EDT, Height Start [...] 7:30:00 EST, Aerosol, Route to Pharmacy Electronically, [id number], [facility], cm, 09/30/20 1... Start Date: 11/22/20 Stop Date: 01/21/21 Status: Ordered Spiriva HandiHaler 18 mcg inhalation capsule 1 capsule, Inhalation, Daily, # 90 capsule, 1 Refills, Maintenance, 02/22/21 14:59:00 EDT, [facility], 158, cm, 02/01/21 9:13:00 EDT, Height Start Date: 02/22/21 Status: Ordered Symbicort 160mcg/4.5mcg Inhaler 2, puffs, Inhalation, 2 times a day, 90 DAY SUPPLY, # 3 each, Refills 1, Tot. Refills 1, Maintenance, 01/04/21 11:06:00 EDT, Aerosol, Route to Pharmacy Electronically, [id number], [facility] 158, cm, 09/30/20 14:41:0... Start Date: 01/04/21 Status: Ordered Valtrex 500 mg oral tablet 500 mg, 1, tablet, By Mouth, Daily, # 30 tablet, Refills 11, Tot. Refills 11, Maintenance, 10/19/2111:02:00 EST, [facility] 158, cm, 09/30/20 14:41:00 EST,Height Start [...] CT measuring 4.1 cm. 2CT scan 2016 22977; repeat 2028 4colo 2008 nl, repeat 2019 5colo 2018 6egd 2012 no barretts 7colo 2018 8Status post laparotomy with lysis of adhesions and repair of incarcerated ventral hernia. Surgery performed March 2018. 9Thyroid peroxidase antibody positive Results Radiology Reports * Exam Date Time Procedure Performing Provider Status 04/27/21 3:34 PM Dexa Bone Density (Axial) Elle Love; Latisha (Verified) Notes: (Dexa Bone Density (Axial)) Reason For Exam: Osteopenia RESULT: DEXA BONE DENSITY (AXIAL) Bone Density Report Name: SATHISH MARIE Age: 75 Sex: Female Ethnicity: White Date of : 1945 Indication: OSTEOPENIA. Referring Provider: ALEXA FARRELL MD Study: Bone densitometry was performed. Exam Date: April 27, 2021 Accession number: [id number] Bone Density: Region BMD T-score Z-score Classification AP Spine (L1-L4) 0.862 -1.7 0.8 Osteopenia Femoral Neck (Right) 0.586 -2.4 -0.2 Osteopenia Total Hip (Right) 0.737 -1.7 0.2 Osteopenia World Health Organization criteria for BMD impression classify patients as: Normal (T-score at or above -1.0), Osteopenia (T-score between -1.0 and -2.5), or Osteoporosis (T-score at or below -2.5). 10-year Fracture Risk(1): Major Osteoporotic Fracture 15% Hip Fracture 4.7% Reported Risk Factors: [place] (), Neck BMD=0.586, BMI=21.4 (1) FRAX(R) Version 3.00. Fracture probability calculated for an untreated patient. Fracture probability may be lower if the patient has received treatment. Previous Exams: Region Exam Age BMD T-score BMD Change BMD Change Date g/cm2 vs Baseline vs Previous AP Spine(L1-L4) 04/27/2021 75 0.862 -1.7 4.9%* 4.9%* 11/11/2014 69 0.822 -2.0 Total Hip(Right) 04/27/2021 75 0.737 -1.7 -5.1%* -5.1%* 11/11/2014 69 0.776 -1.4 Femoral Neck(Right) 04/27/2021 75 0.586 -2.4 -4.9%* -4.9%* 11/11/2014 69 0.616 -2.1 *Denotes significance at 95% confidence level, LSC for AP Spine = 0.022 g/cm2, LSC for Total Hip = 0.027 g/cm2 Clinical Information Provided by Patient: Has used the following medications: Vitamin D, Calcium Has the following medical conditions: Asthma or Emphysema, Inflammatory bowel diseases Patient maximum height was 64.0 Menopause Age: 54 Onset of menses at age 14 Number of children 3 Impression: The patient has osteopenia as determined by WHO criteria. Based on the results of the patient's bone density assessment, the risk of future fracture increases approximately two fold for each 1.0 SD decrease in T-score. However, low BMD is not the only risk factor for a future fragility fracture. Other clinical risk factors for osteoporotic fracture should be considered in ascertaining this patient's future fracture risk including the patient's age, previous osteoporotic (fragility) fracture, estrogen deficiency/hypogonadism, risk of falling, use of medications implicated in bone loss (glucocorticoids), family history of osteoporotic fracture, diseases and conditions associated with bone loss, low body weight, smoking, high bone turnover, etc. Combining low BMD and other clinical risk factors result in a more precise assessment of future fracture risk. Secondary causes for osteoporosis, such as osteomalacia, other metabolic bone disorders, and diseases and conditions that may contribute to accelerated bone loss may have to be considered depending on the clinical situation. A repeat bone density assessment should be considered in two years. Reported by: Nancy Sands M.D. on 05/04/2021 3:18:00 PM. Dictated By: Nancy Sands MD Dictated Date/Time: 05/04/21 3:18 pm Reviewed By: Nancy Sands MD Signed By: Nancy Sands MD Signed Date/Time: 05/04/21 3:18 pm Transcribed By: REECE Transcribed Date/Time: 05/04/21 3:18 pm Social History Social History Type Response Smoking Status Former smoker; Other : quit 15 years ago; entered on: 03/16/16 Sex Female
--- OUTSIDE RECORDS SUMMARY | 2024-07-03 12:10 | XMS_ITS | Continuity of Care Document ---
Author Organization [facility] Eduardo Dawson Durga lt Address [address] [place] [address]- Care Team Providers Care Rose Grader Name Role Phone Miko Marshall MD Primary Care Physician [facility] 04[facility]22 - 04/17/22 [facility] Adult [address] [place] [address]- Encounter Diagnosis Alcohol intake above recommended sensible limits without complication(Discharge Diagnosis) - 04/10/22 Ascending aortic aneurysm(Discharge Diagnosis) - 04/10/22 COPD (chronic obstructive pulmonary disease)(Discharge Diagnosis) - 04/10/22 HTN (hypertension)(Discharge Diagnosis) - 04/10/22 Hypercholesterolemia(Discharge Diagnosis) - 04/10/22 Insomnia(Discharge Diagnosis) - 04/10/22 Subclinical hypothyroidism(Discharge Diagnosis) - 04/10/22 Gastroesophageal reflux disease with hiatal hernia(Discharge Diagnosis) - 04/10/22 Attending Physician: Miko Marshall MD Allergies, Adverse [...] 10/26/20 Recorded influenza virus vaccine, inactivated 05/26/21 Tsan rded influenza virus vaccine, inactivated 05/24/18 Give [...] n 1Admin Note: historical data 2Location History: [facility] 3Result Comment: [06/23/2016] HIGH DOSE 4Admin Note: FLUARIX 5Admin Note: VIS GIVEN 6Admin Note: [facility] info given to patient 7Admin [...] 09/02/21 9:38:00 EST, Route to Pharmacy Electronically, [facility]/pharmacy #[id number], Partial fill upon patient request if the prescription is for a schedule II opioid drug.... Start Date: 09/02/21 Status: Ordered atorvastatin 10 mg oral tablet 0.5 tablet, By Mouth, Daily, # 45 tablet, 3 Refills, 04/10/22 13:41:00 EDT, [facility]/pharmacy #[id number], 155, cm, 04/10/22 13:29:00 EDT, Height Start Date: 04/10/22 Status: Ordered budesonide-formoterol 160 mcg-4.5 mcg/inh inhalation aerosol with adapter 2, puffs, Inhalation, 2 times a day, # 30.6 each, Refills 1, Route to Pharmacy Electronically, [id number], [facility], 155, cm, 05/16/21 12:39:00 EDT, Height Start Date: 06/25/21 Status: Ordered Centrum Silver By Mouth, Daily, 0 Refills, Maintenance, 01/11/17 14:23:47 Start Date: 01/11/17 Status: Ordered cloNIDine 0.1 mg oral tablet 0.1 mg, 1, tablet, By Mouth, 2 times a day, # 180 tablet, Refills 3, Tot. Refills 3, Maintenance, 09/02/21 9:38:00 EST, Route to Pharmacy Electronically, [facility]/pharmacy #[id number], Partial fill upon patientrequest if the prescription is for a schedule II op... Start Date: 09/02/21 Status: Ordered hydroCHLOROthiazide 12.5 mg oral capsule 1 capsule = 12.5 mg, By Mouth, Daily, # 90 capsule, 3 Refills, Maintenance, 10/19/21 11:02:00 EST, Capsule, [facility]/pharmacy #[id number], Partial fill upon patient request if the prescription is for a scheduleII opioid drug., 155, cm, 10/05/21 13:33:00 EST, He... Start Date: 10/19/21 Status: Ordered levothyroxine 0.05 mg oral tablet See Instructions, TAKE 1 TABLET BY MOUTH EVERY DAY, # 90 tablet, 3 Refills, [facility], 155, cm, 04/10/22 13:29:00 EDT, Height Start Date: 04/10/22 Status: Ordered LORazepam 0.5 mg oral tablet 1 tablet = 0.5 mg, By Mouth, Daily, PRN for anxiety, # 24 tablet, 1 Refills, Maintenance, 09/02/21 9:33:00 EST, Tablet, [facility]/pharmacy #[id number], 155, cm, 09/02/21 8:06:00 EST, Height Start Date: 09/02/21 Status: Ordered losartan 100 mg oral tablet 1 tablet, By Mouth, Daily, # 90 tablet, 1 Refills, [facility], 155, cm, 11/14/21 13:39:00 EST,Height Start Date: [...] 7:30:00 EST, Aerosol, Route to Pharmacy Electronically, [id number], [facility]/pharmacy #7111, 158, cm, 09/30/20 1... Start Date: 11/22/20 Stop Date: 01/21/21 Status: Ordered Spiriva HandiHaler 18 mcg inhalation capsule 1 capsule, Inhalation, Daily, # 90 capsule, 1 Refills, Maintenance, 10/07/21 11:00:00 EST, [facility], 155, cm, 10/05/21 13:33:00 EST, Height Start Date: 10/07/21 Status: Ordered Tessalon Perles 100 mg oral capsule 1 capsule = 100 mg, By Mouth, 3 times a day, for 7 days, # 21 capsule, 0 Refills, Acute 04/20/22 11:01:00 EDT, 04/13/22 11:01:00 EDT, Capsule, [facility]/pharmacy #[id number], Partial fill upon patient request ifthe prescription is for a schedule II opioid drug.,... Start Date: 04/13/22 Stop Date: 04/20/22 Status: Ordered tiZANidine 2 mg oral capsule 1 capsule = 2 mg, By Mouth, Every 8 hours, # 42 capsule, 0 Refills, Maintenance, 03/10/22 13:48:00 EDT, [facility]/pharmacy #[id number], Partial fill upon patient request if the prescription is for a schedule II opioid drug., 155, cm, 03/10/22 13:27:00 EDT, Height Start Date: 03/10/22 Stop Date: 03/24/22 Status: Ordered valACYclovir 500 mg oral tablet 1, tablet, By Mouth, Daily, # 30 tablet, Refills 11, Route to Pharmacy Electronically, [facility], 155, cm, 10/05/21 13:33:00 EST, Height Start [...] chest CT measuring 4.1 [address]. 2CT scan 2015; repeat 2028 4colo 2008 nl, repeat 2019 5colo 2019 6egd 2012 no barretts 7colo 2019 8Status post laparotomy with lysis of adhesions and repair of incarcerated ventral hernia. Surgery performed March 2018. 9Thyroid peroxidase antibody positive Diagnosis Diagnosis Type Effective Dates Health Status Clinical Service Informant Alcohol intake above recommended sensible limits without complication Discharge Diagnosis 04/10/22 Ascending aortic aneurysm Discharge Diagnosis 04/10/22 COPD (chronic obstructive pulmonary disease) Discharge Diagnosis 04/10/22 HTN (hypertension) Discharge Diagnosis 04/10/22 Hypercholesterolemia Discharge Diagnosis 04/10/22 Insomnia Discharge Diagnosis 04/10/22 Subclinical hypothyroidism Discharge Diagnosis 04/10/22 Gastroesophageal reflux disease with hiatal hernia Discharge Diagnosis 04/10/22 Vital Signs Most recent to oldest [Reference Range]: 1 Height 155 cm (04/10/22 1:29 PM) Weight 54.9 kg (04/10/22 1:29 PM) Oxygen Saturation [94-100 %] 96 % (04/10/22 1:29 PM) Pulse Rate [55-90 bpm] 66 bpm (04/10/22 1:29 PM) Body Mass Index [18.5-24.99] 22.85 (04/10/22 1:29 PM) Blood Pressure [90-138/55-84 mm Hg] 106/ 58mm Hg (04/10/22 1:29 PM) Mode of Delivery (Oxygen) Room air (04/10/22 1:29 PM) Blood pressure sites Arm, left (04/10/22 1:29 PM) Social History Social History Type Response Smoking Status Former smoker; Other : quit 15 years ago; entered on: 03/16/16 Sex Female
--- OUTSIDE RECORDS SUMMARY | 2024-07-03 12:11 | XMS_ITS | Continuity of Care Document ---
Author Organization [facility] Eduardo Dawson Durga lt Address [address] [place] [id number]- Care Team Providers Care Fire Chief Name Role Phone Miko Marshall MD Primary Care Physician [facility]): 10[facility]09[facility]23 - 11/08/23 [facility] Adult [address] [place] [address]- Allergies, Adverse Reactions, Alerts Substance Reaction Severity [...] (oldterm) 10 06/24/08 Give n 1Result Comment: [facility]: [id number] [facility] 3Result Comment: [06/23/2016] HIGH DOSE 4Admin Note: FLUARIX 5Admin Note: VIS GIVEN 6Admin Note: [facility] info given to patient 7Admin Note: [facility] [...] 1 Refills, Maintenance,05/25/22 15:32:00 EDT, [facility], 75, INHALE 2 PUFFS 4 TIMES A DAY WHEN NEEDED FOR WHEEZING, 155, cm, 04/27/22 14:46:00 EDT, Height, 52.25, kg, 0... Start Date: 05/25/22 Status: Ordered amLODIPine 10 mg oral tablet 10 mg, 1, tablet, By Mouth, Daily, # 90 tablet, Refills 3, Tot. Refills 3, Maintenance, 11/22/22 16:38:00 EST, [id number] upon patient [...] 6 Refills, Maintenance, 06/29/23 15:09:00 EDT[facility], cm, 06/29/23 14:50:00 EDT, Height, 52.25, kg, 04/27/22 14:46:00 EDT, Dry Weight Start Date: 06/29/23 Status: Ordered budesonide-formoterol 160 mcg-4.5 mcg/inh inhalation aerosol with adapter 2, puffs, Inhalation, 2 times a day, # 30.6 each, Refills 1, Maintenance, 08/29/23 5:44:00 EST, Route to Pharmacy Electronically, [id number], [facility], 155, cm, 08/27/23 8:53:00 EST, Height, 52.25, [...] 09/28/23 13:34:00 EST, Route to Pharmacy Electronically, [facility]/pharmacy #7111, Partial fill upon patient request if the prescription is for a schedule II o... Start Date: 09/28/23 Stop Date: 09/22/24 Status: Ordered fluticasone 50 mcg/inh nasal spray 1 sprays, Nares, Both, 2 times a day, # 16 Gm, 11 Refills, Maintenance, 06/29/23 15:10:00 EDT, Nasal [place], [facility]/pharmacy #7111, Partial fill upon patient request if the prescription is for a scheduleII opioid drug., 1 sprays Nares, Both 2 times a day... Start Date: 06/29/23 Status: Ordered hydroCHLOROthiazide 12.5 mg oral capsule 1 capsule, By Mouth, Daily, # 90 capsule, 3 Refills, Maintenance, 12/28/22 7:50:00 EDT, [facility], 155, cm, 10/16/22 12:48:00 EST, Height, 52.25, kg, 04/27/22 14:46:00 EDT, Dry Weight Start Date: 12/28/22 Status: Ordered levothyroxine 0.05 mg oral tablet 1 tablet, By Mouth, Daily, # 90 tablet, 0 Refills, Maintenance, 08/29/23 5:44:00 EST, [facility], 155, cm, 08/27/23 8:53:00 EST, Height, 52.25, kg, 04/27/22 14:46:00 EDT, Dry Weight Start Date: 08/29/23 Status: Ordered LORazepam 0.5 mg oral tablet 1 tablet = 0.5 mg, By Mouth, Daily, PRN for anxiety, # 24 tablet, 1 Refills, Maintenance, 10/18/22 10:48:00 EST, Tablet, [facility]/pharmacy #7111, 155, cm, 10/16/22 12:48:00 EST, Height, 52.25, kg, 04/27/22 14:46:00 EDT, Dry Weight Start Date: 10/18/22 Status: Ordered losartan 100 mg oral tablet 1 tablet, By Mouth, Daily, # 90 tablet, 3 Refills, Maintenance, 11/22/22 16:38:00 EST, [facility]/pharmacy#7111, 155, cm, 10/16/22 12:48:00 EST, Height, 52.25, kg, 04/27/22 14:46:00 EDT, Dry Weight Start Date: 11/22/22 Status: Ordered magnesium oxide 500 mg oral tablet 1 tablet = 500 mg, By Mouth, Daily, 0 Refills, Maintenance, 06/28/18 10:06:58 EDT Start Date: 06/28/18 Status: Ordered Spiriva HandiHaler 18 mcg inhalation capsule 1 capsule, Inhalation, Daily, # 90 capsule, 1 Refills, Maintenance, 09/11/23 10:37:00 EST, [facility]/pharmacy #7111, 155, cm, 08/27/23 8:53:00 EST, Height, 52.25, kg, 04/27/22 14:46:00 EDT, Dry Weight Start Date: 09/11/23 Status: Ordered valACYclovir 500 mg oral tablet 1, tablet, By Mouth, Daily, # 30 tablet, Refills 11, Maintenance, 12/22/22 9:50:00 EDT, Route to Pharmacy Electronically, [facility], 155, cm, 10/16/22 12:48:00 EST, Height, 52.25, [...] CT measuring 4.1 cm. 2CT scan 2016 66685; repeat 2028 4colo 2009 nl, repeat 2018 5Problem added by Discern [...] Primary Care Member Role: PCP Address: Address: [address] [place] [id number]- Name: Zachary Biswas MD Position: [facility] Renal MD Member Role: Lifetime Consulting Physician Address: Address: [address] [facility] [address] [facility] [place] [address]- Name: Sridhar De Leon RN Position: [facility] RN Member Role: Primary Care Nurse Care Team Related Persons Name: MU CONTRERAS Address: [place] [address] Name: SHANELL COBIAN Address: [address] [address]
--- OUTSIDE RECORDS SUMMARY | 2024-07-03 12:11 | XMS_ITS | Continuity of Care Document ---
Author Organization [facility] Eduardo Dawson Durga lt Address [address] [place] [address]- Care Team Providers Care Mess Cook Name Role Phone Miko Marshall MD Primary Care Physician [phone] [facility] 01/17[facility]23 - 02/16/23 [facility] Adult [address] [place] [address]- Allergies, Adverse Reactions, Alerts Substance Reaction Severity [...] virus vaccine, inactivated 7, 8 05/30/10 Given tetanus-diphtheria toxoids (Td) 10/05/21 [...] FLUARIX 4Admin Note: VIS GIVEN 5Admin Note: [facility] info given to patient 6Admin Note: GIANCARLO 7Result Comment: OOP 8Admin Note: RUDDY 9Admin Note: historical data 10Admin Note: Information [...] 1 Refills, Maintenance,05/25/22 15:32:00 EDT, [facility], 75, INHALE 2 PUFFS 4 TIMES A DAY WHEN NEEDED FOR WHEEZING, 155, cm, 04/27/22 14:46:00 EDT, Height, 52.25, kg, 0... Start Date: 05/25/22 Status: Ordered amLODIPine 10 mg oral tablet 10 mg, 1, tablet, By Mouth, Daily, # 90 tablet, Refills 3, Tot. Refills 3, Maintenance, 11/22/22 16:38:00 EST, Route to Pharmacy Electronically, [facility]/pharmacy #7111, Partial fill upon patient request if the prescription is for a schedule II opioid drug... Start Date: 11/22/22 Status: Ordered atorvastatin 10 mg oral tablet 0.5 tablet, By Mouth, Daily, # 45 tablet, 3 Refills, 04/10/22 13:41:00 EDT, [facility]/pharmacy #7111, 155, cm, 04/10/22 13:29:00 EDT, Height Start Date: 04/10/22 Status: Ordered budesonide-formoterol 160 mcg-4.5 mcg/inh inhalation aerosol with adapter 2, puffs, Inhalation, 2 times a day, # 30.6 each, Refills 1, Tot. Refills 1, 07/17/22 13:30:00 EDT,Route to Pharmacy Electronically, [id number], [facility]/pharmacy #7111, 155, cm, 06/12/22 14:03:00 EDT, Height, 52.25, kg, 04/27/22... Start Date: 07/17/22 Status: Ordered Centrum Silver By Mouth, Daily, 0 Refills, Maintenance, 01/11/17 14:23:47 Start Date: 01/11/17 Status: Ordered chlorthalidone 25 mg oral tablet 12.5 mg, 0.5, tablet, By Mouth, Daily, # 15 tablet, Refills 0, Maintenance, 01/26/23 10:54:00 EDT, Partial fill upon patient request if the prescription is for a schedule II opioid drug. Start Date: 01/26/23 Status: Ordered Eliquis Starter Pack 5 mg oral tablet 0 Refills, Maintenance, 01/26/23 10:54:00 EDT, Partial fill upon patient request if the prescription is for a schedule II opioid drug. Start Date: 01/26/23 Status: Ordered hydroCHLOROthiazide 12.5 mg oral capsule 1 capsule, By Mouth, Daily, # 90 capsule, 3 Refills, Maintenance, 12/28/22 7:50:00 EDT, [facility], 155, cm, 10/16/22 12:48:00 EST, Height, 52.25, kg, 04/27/22 14:46:00 EDT, Dry Weight Start Date: 12/28/22 Status: Ordered levothyroxine 0.05 mg oral tablet 1 tablet, By Mouth, Daily, # 90 tablet, 1 Refills, Maintenance, 09/06/22 15:47:00 EST, [facility], 155, cm, 06/12/22 14:03:00 EDT, Height, 52.25, kg, 04/27/22 14:46:00 EDT, Dry Weight Start Date: 09/06/22 Status: Ordered LORazepam 0.5 mg oral tablet 1 tablet = 0.5 mg, By Mouth, Daily, PRN for anxiety, # 24 tablet, 1 Refills, Maintenance, 10/18/22 10:48:00 EST, Tablet, [facility]/pharmacy #7111, 155, cm, 10/16/22 12:48:00 EST, Height, 52.25, kg, 04/27/22 14:46:00 EDT, Dry Weight Start Date: 10/18/22 Status: Ordered losartan 100 mg oral tablet 1 tablet, By Mouth, Daily, # 90 tablet, 3 Refills, Maintenance, 11/22/22 16:38:00 EST, [facility]/pharmacy#7111, 155, cm, 10/16/22 12:48:00 EST, Height, 52.25, [...] Daily, # 90 capsule, 1 Refills, Maintenance, 11/22/22 16:13:00 EST, [facility], 155, cm, 10/16/22 12:48:00 EST, Height, 52.25, kg, 04/27/22 14:46:00 EDT, Dry Weight Start Date: 11/22/22 Status: Ordered valACYclovir 500 mg oral tablet 1, tablet, By Mouth, Daily, # 30 tablet, Refills 11, Maintenance, 12/22/22 9:50:00 EDT, Route to Pharmacy Electronically, [facility], 155, cm, 10/16/22 12:48:00 EST, Height, 52.25, [...] CT measuring 4.1 cm. 2CT scan 2016 [address]55; repeat 2028 4colo 2008 nl, repeat 2018 [...] Personnel Name: Maria G Mendez RN Position: [facility] RN Member Role: Primary Care Nurse Name: Barby Frias Position: [facility] Outreach Member Role: Lifetime Consulting Physician Name: Miko Marshall MD Position: [facility] Physician - Primary Care Member Role: PCP Address: Address: [address] [place] [address]- [place] Name: Zachary Biswas MD Position: [facility] Renal MD Member Role: Lifetime Consulting Physician Address: Address: [address] [facility] [place] [place] [address]- Name: Sridhar De Leon RN Position: [facility] RN Member Role: Primary Care Nurse Care Team Related Persons Name: MU CONTRERAS Address: [place] [address] Name: SHANELL COBIAN Address: home [address] [place] [id number]
--- OUTSIDE RECORDS SUMMARY | 2024-07-03 12:11 | XMS_ITS | Continuity of Care Document ---
Author Organization [facility] Durga lt Address [address] [place] [address]- Care Team Providers Care Mems Integration Engineer Name Role Phone Miko Marshall MD Primary Care Physician [facility] Date[facility]): 11/22/22 - 12/22/22 [facility] Adult [address] [place] [address]- Allergies, Adverse Reactions, Alerts Substance Reaction Severity Status Adhesive Bandage rash swelling Active Latex rash swelling Active Immunizations Given and Recorded Vaccine Date Status Refusal Reason influenza virus vaccine, inactivated 06/12/22 Give n [...] FLUARIX 4Admin Note: VIS GIVEN 5Admin Note: [facility] info given to patient 6Admin Note: GIANCARLO [...] 25.5 each, 1 Refills, Maintenance,05/25/22 15:32:00 EDT, [facility], 75, INHALE 2 PUFFS 4 TIMES A DAY WHEN NEEDED FOR WHEEZING, 155, cm, 04/27/22 14:46:00 EDT, Height, 52.25, kg, 0... Start Date: 05/25/22 Status: Ordered amLODIPine 10 mg oral tablet 10 mg, 1, tablet, By Mouth, Daily, # 90 tablet, Refills 3, Tot. Refills 3, Maintenance, 11/22/22 16:38:00 EST, Route to Pharmacy Electronically, [facility]/pharmacy #[id number], Partial fill upon patient request if the prescription is for a schedule II opioid drug... Start Date: 11/22/22 Status: Ordered atorvastatin 10 mg oral tablet 0.5 tablet, By Mouth, Daily, # 45 tablet, 3 Refills, 04/10/22 13:41:00 EDT, [facility]/pharmacy #[id number], 155, cm, 04/10/22 13:29:00 EDT, Height Start Date: 04/10/22 Status: Ordered brompheniramine/dextromethorphan/pseudoephedrine 1 mg-5 mg-15 mg/5 mL oral liquid 5 mL, By Mouth, 2 times a day, PRN Cough, # 473 mL, 1 Refills, Maintenance, 10/16/22 13:18:00 EST, [facility]/pharmacy #[id number], Partial fill upon patient request if the prescription is for a schedule II opioid drug., 5 mL By Mouth 2 times a day,x30 days,PRN:Co... Start Date: 10/16/22 Stop Date: 12/15/22 Status: Ordered budesonide-formoterol 160 mcg-4.5 mcg/inh inhalation aerosol with adapter 2, puffs, Inhalation, 2 times a day, # 30.6 each, Refills 1, Tot. Refills 1, 07/17/22 13:30:00 EDT,Route to Pharmacy Electronically, [id number], [facility]/pharmacy #[id number], 155, cm, 06/12/22 14:03:00 EDT, Height, 52.25, kg, 04/27/22... Start Date: 07/17/22 Status: Ordered Centrum Silver By Mouth, Daily, 0 Refills, Maintenance, 01/11/17 14:23:47 Start Date: 01/11/17 Status: Ordered cloNIDine 0.1 mg oral tablet 0.1 mg, 1, tablet, By Mouth, 2 times a day, # 180 tablet, Refills 3, Tot. Refills 3, Maintenance, 09/02/21 9:38:00 EST, Route to Pharmacy Electronically, [facility]/pharmacy #[id number], Partial fill upon patientrequest if the prescription is for a schedule II op... Start Date: 09/02/21 Status: Ordered hydroCHLOROthiazide 12.5 mg oral capsule 1 capsule = 12.5 mg, By Mouth, Daily, # 90 capsule, 3 Refills, Maintenance, 10/19/21 11:02:00 EST, Capsule, [facility]/pharmacy #[id number], Partial fill upon patient request if the prescription is for a scheduleII opioid drug., 155, cm, 10/05/21 13:33:00 EST, He... Start Date: 10/19/21 Status: Ordered levothyroxine 0.05 mg oral tablet 1 tablet, By Mouth, Daily, # 90 tablet, 1 Refills, Maintenance, 09/06/22 15:47:00 EST, [facility], 155, cm, 06/12/22 14:03:00 EDT, Height, 52.25, kg, 04/27/22 14:46:00 EDT, Dry Weight Start Date: 09/06/22 Status: Ordered LORazepam 0.5 mg oral tablet 1 tablet = 0.5 mg, By Mouth, Daily, PRN for anxiety, # 24 tablet, 1 Refills, Maintenance, 10/18/22 10:48:00 EST, Tablet, [facility]/pharmacy #[id number], 155, cm, 10/16/22 12:48:00 EST, Height, 52.25, kg, 04/27/22 14:46:00 EDT, Dry Weight Start Date: 10/18/22 Status: Ordered losartan 100 mg oral tablet 1 tablet, By Mouth, Daily, # 90 tablet, 3 Refills, Maintenance, 11/22/22 16:38:00 EST, [facility]/pharmacy#7111, 155, cm, 10/16/22 12:48:00 EST, Height, 52.25, [...] Dry Weight Start Date: 11/22/22 Status: Ordered tiZANidine 2 mg oral capsule 1 capsule = 2 mg, By Mouth, Every 8 hours, # 42 capsule, 0 Refills, Maintenance, 03/10/22 13:48:00 EDT, [facility]/pharmacy #7111, Partial fill upon patient request if the prescription is for a schedule II opioid drug., 155, cm, 03/10/22 13:27:00 EDT, Height Start Date: 03/10/22 Stop Date: 03/24/22 Status: Ordered valACYclovir 500 mg oral tablet 1, tablet, By Mouth, Daily, # 30 tablet, Refills 11, Maintenance, 12/22/22 9:50:00 EDT, Route to Pharmacy Electronically, [facility], 155, cm, 10/16/22 12:48:00 EST, Height, 52.25, [...] CT measuring 4.1 cm. 2CT scan 2016 77930; repeat 2028 4colo 2009 nl, repeat 2019 [...] Personnel Name: Maria G Mendez RN Position: [facility] RN Member Role: Primary Care Nurse Name: Barby Frias Position: [facility] Outreach Member Role: Lifetime Consulting Physician Name: Miko Marshall MD Position: [facility] Primary Care Physician Member Role: PCP Address: Address: [address] [place] [address]- Name: Sridhar De Leon RN Position: [facility] RN Member Role: Primary Care Nurse Care Team Related Persons Name: MU CONTRERAS Address: [place] [address] Name: SHANELL COIBAN Address: [address] [address]
--- OUTSIDE RECORDS SUMMARY | 2024-07-03 12:11 | XMS_ITS | Continuity of Care Document ---
Author Organization [facility] Address [address] [place] [address]- Care Team Providers Care Pottery Decorator Name Role Phone Miko Marshall MD Primary Care Physician [phone] [facility] Date[facility]): 10[facility]/23 - 11/25/[address] [address] Attending Physician: Paco Anderson Admitting Physician: Admtr, Paco Referring Physician: Admtr, [...] (oldterm) 10 06/24/08 Give n 1Result Comment: [facility]: [id number] 2Location History: [facility] 3Result Comment: [06/23/2016] HIGH DOSE 4Admin Note: FLUARIX 5Admin Note: VIS GIVEN 6Admin Note: [facility] info given to patient 7Admin [...] 11/22/22 16:38:00 EST, Route to Pharmacy Electronically, [facility]/pharmacy #[id number], Partial fill upon patient request if the [...] tablet, 6 Refills, Maintenance, 06/29/23 15:09:00 EDT, [facility]/pharmacy #7111, 155, cm, 06/29/23 14:50:00 EDT, Height, 52.25, kg, 04/27/22 14:46:00 EDT, Dry Weight Start Date: 06/29/23 Status: Ordered budesonide-formoterol 160 mcg-4.5 mcg/inh inhalation aerosol with adapter 2, puffs, Inhalation, 2 times a day, # 30.6 each, Refills 11, Tot. Refills 11, Maintenance, 11/20/23 9:54:00 EST, Route to Pharmacy Electronically, [id number], [facility]/pharmacy #[id number], 155, cm, 10/12/23 16:44:00 EST, [...] 09/28/23 13:34:00 EST, Route to Pharmacy Electronically, [facility]/pharmacy #[id number], Partial fill upon patient request if the prescription is for a schedule II o... Start Date: 09/28/23 Stop Date: 09/22/24 Status: Ordered fluticasone 50 mcg/inh nasal spray 1 sprays, Nares, Both, 2 times a day, # 16 Gm, 11 Refills, Maintenance, 06/29/23 15:10:00 EDT, Nasal [place], [facility]/pharmacy #7111, Partial fill upon patient request if the prescription is for a scheduleII opioid drug., 1 sprays Nares, Both 2 times a day... Start Date: 06/29/23 Status: Ordered hydroCHLOROthiazide 12.5 mg oral capsule 1 capsule, By Mouth, Daily, # 90 capsule, 3 Refills, Maintenance, 12/28/22 7:50:00 EDT, [facility], 155, cm, 10/16/22 12:48:00 EST, Height, 52.25, kg, 04/27/22 14:46:00 EDT, Dry Weight Start Date: 12/28/22 Status: Ordered levothyroxine 0.05 mg oral tablet 1 tablet, By Mouth, Daily, # 90 tablet, 0 Refills, Maintenance, 08/29/23 5:44:00 EST, [facility], 155, cm, 08/27/23 8:53:00 EST, Height, 52.25, kg, 04/27/22 14:46:00 EDT, Dry Weight Start Date: 08/29/23 Status: Ordered LORazepam 0.5 mg oral tablet 1 tablet = 0.5 mg, By Mouth, Daily, PRN for anxiety, # 24 tablet, 1 Refills, Maintenance, 10/18/22 10:48:00 EST, Tablet, [facility]/pharmacy #[id number], 155, cm, 10/16/22 12:48:00 EST, Height, 52.25, kg, 04/27/22 14:46:00 EDT, Dry Weight Start Date: 10/18/22 Status: Ordered losartan 100 mg oral tablet 1 tablet, By Mouth, Daily, # 90 tablet, 3 Refills, Maintenance, 11/22/22 16:38:00 EST, [facility]/pharmacy#7111, 155, cm, 10/16/22 12:48:00 EST, Height, 52.25, kg, 04/27/22 14:46:00 EDT, Dry Weight Start Date: 11/22/22 Status: Ordered magnesium oxide 500 mg oral tablet 1 tablet = 500 mg, By Mouth, Daily, 0 Refills, Maintenance, 06/28/18 10:06:58 EDT Start Date: 06/28/18 Status: Ordered Spiriva HandiHaler 18 mcg inhalation capsule 1 capsule, Inhalation, Daily, # 90 capsule, 4 Refills, Maintenance, 11/20/23 9:54:00 EST, [facility]/pharmacy #7111, 155, cm, 10/12/23 16:44:00 EST, Height, 52.25, kg, 04/27/22 14:46:00 EDT, Dry Weight Start Date: 11/20/23 Status: Ordered valACYclovir 500 mg oral tablet 1, tablet, By Mouth, Daily, # 30 tablet, Refills 11, Maintenance, 12/22/22 9:50:00 EDT, Route to Pharmacy Electronically, [facility], 155, cm, 10/16/22 12:48:00 EST, Height, 52.25, kg, 04/27/22 14:46:00 EDT, Dry Weight Start Date: 12/22/22 Status: Ordered Ventolin HFA 108 mcg/inh inhalation aerosol with adapter 2 puffs, Inhalation, Every 6 hours, PRN for wheezing, # 8 Gm, 11 Refills, Maintenance, 11/20/23 9:54:00 EST, Aerosol, [facility]/pharmacy #7111, Partial fill upon patient request [...] CT measuring 4.1 [address]. 2CT scan 2015 [address]4880; repeat 2028 4colo 2009 nl, repeat 2018 5Problem added by Discern Expert 6colo 2018 7egd 2012 no barretts 8colo 2018 9Status post laparotomy with lysis of adhesions and repair of incarcerated ventral hernia. Surgery performed March 2018. 10Thyroid peroxidase antibody positive Social History Social History Type Response Smoking Status Former smoker; Other : quit 15 years ago; entered on: 03/16/16 Sex Female Cardiology * Event Display: Device Check Office Visit Authored Date: [id number] Patient Care team information Care Team Personnel Name: Maria G Mendez RN Position: [facility] RN Member Role: Primary Care Nurse Name: Barby Frias Position: [facility] Outreach Member Role: Lifetime Consulting Physician Name: Miko Marshall MD Position: [facility] Physician - Primary Care Member Role: PCP Address: Address: [address] [place] [address]- [place] Name: Zachary Biswas MD Position: [facility] Renal MD Member Role: Lifetime Consulting Physician Address: Address: [address] [place] [address] [address] [facility] [place] [address]- [place] Name: Sridhar De Leon RN Position: [facility] RN Member Role: Primary Care Nurse Care Team Related Persons Name: MU CONTRERAS Address: [place] [address] Name: SHANELL COBIAN Address: home [address] [place] [address]
--- OUTSIDE RECORDS SUMMARY | 2024-07-03 12:11 | XMS_ITS | Continuity of Care Document ---
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 Phone Miko Marshall MD Primary Care Physician [phone] [facility]): 12/13/23 - 01/12/24 [facility] Adult [address] [place] [address]- Allergies, Adverse Reactions, Alerts Substance Reaction Severity [...] (oldterm) 10 06/24/08 Give n 1Result Comment: [facility]: [id number] [facility] 3Result Comment: [06/23/2016] HIGH DOSE 4Admin Note: FLUARIX 5Admin Note: VIS GIVEN 6Admin Note: [facility] info given to patient 7Admin Note: [facility] [...] 3 Refills, Maintenance, 01/01/25 15:18:00 EDT, Solution, [facility]/pharmacy #[id number], Partial fill upon patient request if the prescription is for a schedule II opioid drug., 155,... Start Date: 01/01/25 Stop Date: 12/27/25 Status: Ordered albuterol 0.083% inhalation solution 3 mL = 2.5 mg, Inhalation, Every 6 hours, for 90 days, use with nebulizer, # 1,080 mL, 3 Refills, Hard Stop 01/01/25 15:18:00 EDT, 01/07/24 15:18:00 EDT, Solution, [facility]/pharmacy #7111, Partial fill upon patient request if the prescription is for a sche... Start Date: 01/07/24 Stop Date: 01/01/25 Status: Ordered amLODIPine 10 mg oral tablet 1 tablet, By Mouth, Daily, # 90 tablet, 1 Refills, Maintenance, 12/22/23 8:21:00 EDT, [facility]/pharmacy #[id number], 155, cm, 10/12/23 16:44:00 EST, Height, [...] tablet, 6 Refills, Maintenance, 06/29/23 15:09:00 EDT, [facility]/pharmacy #[id number], 155, cm, 06/29/23 14:50:00 EDT, Height, 52.25, kg, 04/27/22 14:46:00 EDT, Dry Weight Start Date: 06/29/23 Status: Ordered budesonide-formoterol 160 mcg-4.5 mcg/inh inhalation aerosol with adapter 2, puffs, Inhalation, 2 times a day, # 30.6 each, Refills 11, Tot. Refills 11, Maintenance, 11/20/23 9:54:00 EST, Route to Pharmacy Electronically, [id number], [facility]/pharmacy #[id number], 155, cm, 10/12/23 16:44:00 EST, Height, [...] 09/28/23 13:34:00 EST, Route to Pharmacy Electronically, [facility]/pharmacy #[id number], Partial fill upon patient request if the prescription is for a schedule II o... Start Date: 09/28/23 Stop Date: 09/22/24 Status: Ordered fluticasone 50 mcg/inh nasal spray 1 sprays, Nares, Both, 2 times a day, # 16 Gm, 11 Refills, Maintenance, 06/29/23 15:10:00 EDT, Nasal [place], [facility]/pharmacy #[id number], Partial fill upon patient request if the prescription is for a scheduleII opioid drug., 1 sprays Nares, Both 2 times a day... Start Date: 06/29/23 Status: Ordered hydroCHLOROthiazide 12.5 mg oral capsule 1 capsule, By Mouth, Daily, # 90 capsule, 3 Refills, Maintenance, 12/28/22 7:50:00 EDT, [facility], 155, cm, 10/16/22 12:48:00 EST, Height, 52.25, kg, 04/27/22 14:46:00 EDT, Dry Weight Start Date: 12/28/22 Status: Ordered levothyroxine 0.05 mg oral tablet 1 tablet, By Mouth, Daily, # 90 tablet, 0 Refills, Maintenance, 11/26/23 9:51:00 EDT, [facility], 155, cm, 10/12/23 16:44:00 EST, Height, 52.25, kg, 04/27/22 14:46:00 EDT, Dry Weight Start Date: 11/26/23 Status: Ordered LORazepam 0.5 mg oral tablet 1 tablet = 0.5 mg, By Mouth, Daily, PRN for anxiety, # 24 tablet, 1 Refills, Maintenance, 12/11/23 9:46:00 EDT, Tablet, [facility]/pharmacy #7111, 155, cm, 10/12/23 16:44:00 EST, Height, 52.25, kg, 04/27/2214:46:00 EDT, Dry Weight Start Date: 12/11/23 Status: Ordered losartan 100 mg oral tablet 1 tablet, By Mouth, Daily, # 90 tablet, 1 Refills, Maintenance, 12/22/23 8:20:00 EDT, [facility]/pharmacy #[id number], 155, cm, 10/12/23 16:44:00 EST, Height, 52.25, kg, 04/27/22 14:46:00 EDT, Dry Weight Start Date: 12/22/23 Status: Ordered magnesium oxide 500 mg oral tablet 1 tablet = 500 mg, By Mouth, Daily, 0 Refills, Maintenance, 06/28/18 10:06:58 EDT Start Date: 06/28/18 Status: Ordered Nebulizer/Compressor See Instructions, # 1 [...] capsule, 4 Refills, Maintenance, 11/20/23 9:54:00 EST, [id number], 155, cm, 10/12/23 16:44:00 EST, Height, 52.25, kg, 04/27/22 14:46:00 EDT, Dry Weight Start Date: 11/20/23 Status: Ordered Spiriva HandiHaler 18 mcg inhalation capsule 1 capsule = 18 mcg, Inhalation, Daily, # 90 capsule, 3 Refills, Maintenance, 01/07/24 15:17:00 EDT,[facility]/pharmacy #[id number], Partial fill upon patient request if the prescription is for a schedule II opioid drug., 155, cm, 01/07/24 14:45:00 EDT, Height, 52... Start Date: 01/07/24 Stop Date: 01/01/25 Status: Ordered Symbicort 160mcg/4.5mcg Inhaler 2, puffs, Inhalation, 2 times a day, # 3 each, Refills 3, Tot. Refills 3, Maintenance, 01/07/24 15:17:00 EDT, Aerosol, Route to Pharmacy Electronically, [id number], [facility]/pharmacy #7111, 155, cm, 01/07/24 14:45:00 EDT, Height,... Start Date: 01/07/24 Stop Date: 01/01/25 Status: Ordered valACYclovir 500 mg oral tablet 1, tablet, By Mouth, Daily, # 30 tablet, Refills 11, Maintenance, 12/22/22 9:50:00 EDT, Route to Pharmacy Electronically, [facility], 155, cm, 10/16/22 12:48:00 EST, Height, 52.25, kg, 04/27/22 14:46:00 EDT, Dry Weight Start Date: 12/22/22 Status: Ordered Ventolin HFA 108 mcg/inh inhalation aerosol with adapter 2 puffs, Inhalation, Every 6 hours, PRN for wheezing, # 8 Gm, 11 Refills, Maintenance, 11/20/23 9:54:00 EST, Aerosol, [facility]/pharmacy #7111, Partial fill upon patient request if the prescription is for a schedule II opioid drug., 155, cm, 10/12/23 16:44:... Start Date: 11/20/23 Status: Ordered Ventolin HFA 108 mcg/inh inhalation aerosol with adapter 2 puffs, Inhalation, 4 times a day, PRN for wheezing, # 3 each, 3 Refills, Maintenance, 01/07/24 15:20:00 EDT, Aerosol, [facility]/pharmacy #7111, Partial fill upon patient request [...] 201519; repeat 2028 4colo 2008 nl, repeat 2018 [...] Personnel Name: Maria G Mendez RN Position: [facility] RN Member Role: Primary Care Nurse Name: Barby Frias Position: [facility] Outreach Member Role: Lifetime Consulting Physician Name: Miko Marshall MD Position: [facility] Physician - Primary Care Member Role: PCP Address: Address: [address] [place] [id number]- Name: Zachary Biswas MD Position: [facility] Renal MD Member Role: Lifetime Consulting Physician Address: Address: [address] [place] [address] [address] [facility] [place] [address]- Name: Sridhar De Leon RN Position: [facility] RN Member Role: Primary Care Nurse Care Team Related Persons Name: MU CONTRERAS Address: [place] [address] Name: SHANELL COBIAN Address: home [address] [place] [address]
--- OUTSIDE RECORDS SUMMARY | 2024-07-03 12:11 | XMS_ITS | Continuity of Care Document ---
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 Role Phone Joanna VO, Miko Guillen Primary Care Physician Encounter 06/05/24 - 06/12/24 [facility] [address], [facility] [address] [place] [address]- Attending Physician: Miko Marshall MD Admitting Physician: Javad Nicholson MD Referring Physician: Miko Marshall MD Allergies, Adverse [...] (oldterm) 10 06/24/08 Give n 1Result Comment: [facility]: [id number] 2[facility] 3Result Comment: [06/23/2016] HIGH DOSE 4Admin Note: FLUARIX 5Admin Note: VIS GIVEN 6Admin Note: [facility] info given to patient 7Admin Note: [...] Refills, Maintenance, 01/01/25 15:18:00 EDT, [facility], [facility], Partial fill upon patient request if the prescription is for a schedule II opioid drug., 155,... Start Date: 01/01/25 Stop Date: 12/27/25 Status: Ordered amLODIPine 10 mg oral tablet 1 tablet, By Mouth, Daily, # 90 tablet, 1 Refills, Maintenance, 12/22/23 8:21:00 EDT, [facility]/pharmacy #7111, 155, cm, 10/12/23 16:44:00 [...] 03/03/24 11:43:00 EDT, Route to Pharmacy Electronically, [id number], [facility]/pharmacy#7111, 155, cm, 03/03/24 8:56:00 EDT, Height, [...] a schedule II opioid drug. Start Date: 5/12/23 Status: Ordered Compression Stockings See Instructions, # [...] 11 Refills, Maintenance, 06/29/23 15:10:00 EDT, Nasal [place], [facility]/pharmacy #7111, Partial fill upon patient [...] 1 Refills, Maintenance, 12/11/23 9:46:00 EDT, Tablet, [facility]/pharmacy #7111, 155, cm, 10/12/23 16:44:00 EST, Height, 52.25, kg, 04/27/2214:46:00 EDT, Dry Weight Start Date: 12/11/23 Status: Ordered losartan 100 mg oral tablet 1 tablet, By Mouth, Daily, # 90 tablet, 1 Refills, Maintenance, 12/22/23 8:20:00 EDT, [facility]/pharmacy #7111, 155, cm, 10/12/23 16:44:00 [...] 90 capsule, 3 Refills, Maintenance, 01/07/24 15:17:00 EDT,[facility]/pharmacy #7111, Partial fill upon patient request if the prescription is for a schedule II opioid drug., 155, cm, 01/07/24 14:45:00 EDT, Height, 52... Start Date: 01/07/24 Stop Date: 01/01/25 Status: Ordered valACYclovir 500 mg oral tablet 1, tablet, By Mouth, Daily, # 90 tablet, Refills 1, Tot. Refills 1, Maintenance, 03/14/24 11:38:00 EDT, [facility], cm, 03/03/24 8:56:00 EDT, Height, 52.25, kg, 04/27/22 14:46:00 EDT, Dry Weight Start Date: 03/14/24 Status: Ordered Ventolin HFA 108 mcg/inh inhalation aerosol with adapter 2 puffs, Inhalation, 4 times a day, PRN for wheezing, # 3 each, 3 Refills, Maintenance, 01/07/24 15:20:00 EDT, Aerosol, [facility]/pharmacy #7111, Partial fill upon [...] CT measuring 4.[address] 2[address] scan 2016 90805; repeat 2028 4colo 2009 nl, repeat 2019 5Problem added by Discern Expert 6colo 2018 7egd 2012 no barretts 8colo 2018 9Status post laparotomy with lysis of adhesions and repair of incarcerated ventral hernia. Surgery performed March 2018. 10Thyroid peroxidase antibody positive Results Radiology Reports * Exam Date Time Procedure Performing Provider Status 06/05/24 12:03 PM Sinuses Comp Min 3 Views Honey Torrez sa; Auth (Verified) Notes: (Sinuses Comp Min 3 Views) Reason For Exam: Pain RESULT: Sinuses Comp Min 3 Views Sinuses Comp Min 3 Views Reason: Pain COMPARISON: 08/29/2011. FINDINGS: Clear sinuses. No fractures. IMPRESSION: No acute process. I have personally reviewed the images and I agree with this report. WSN: [id number] Ordering Physician: Miko Marshall Dictated By: Ricco Doyle MD Dictated Date/Time: 06/05/24 4:48 pm Reviewed By: David Ball MD Signed By: David Ball MD Signed Date/Time: 06/05/24 4:53 pm Transcribed By: REECE Transcribed Date/Time: 06/05/24 4:32 pm Social History Social History Type Response Smoking Status Former smoker, quit more than 30 days ago entered on: 01/07/24 Sex Female Patient Care team information Care Team Personnel Name: Maria G Mendez RN Position: [facility] RN Member Role: Primary Care Nurse Name: Barby Frias Position: [facility] Outreach Member Role: Lifetime Consulting Physician Name: Miko Marshall MD Position: [facility] Physician - Primary Care Member Role: PCP Address: Address: [address] [place] [address]- Name: Zachary Biswas MD Position: [facility] Renal MD Member Role: Lifetime Consulting Physician Address: Address: [address] [place] [address] [address] [facility] [place] [address]- Name: Sridhar De Leon RN Position: [facility] RN Member Role: Primary Care Nurse Care Team Related Persons Name: MU CONTRERAS Address: [place] [address] Name: SHANELL COBIAN Address: home [address] [place] [address]
--- OUTSIDE RECORDS SUMMARY | 2024-07-03 12:11 | XMS_ITS | Continuity of Care Document ---
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 Role Phone Miko Marshall MD Primary Care Phys[facility] - 04/11/24 [facility] [address] [place] [address]- Allergies, Adverse Reactions, Alerts Substance Reaction Severity [...] (oldterm) 10 06/24/08 Give n 1Result Comment: [facility]: [id number] 2[facility] 3Result Comment: [06/23/2016] HIGH DOSE 4Admin Note: FLUARIX 5Admin Note: VIS GIVEN 6Admin Note: [facility] info given to patient 7Admin Note: [...] Refills, Maintenance, 01/01/25 15:18:00 EDT, Solution, [facility]/pharmacy #[id number], Partial fill upon patient request if the prescription is for a schedule II opioid drug., 155,... Start Date: 01/01/25 Stop Date: 12/27/25 Status: Ordered albuterol 0.083% inhalation solution 3 mL = 2.5 mg, Inhalation, Every 6 hours, for 90 days, use with nebulizer, # 1,080 mL, 3 Refills, Hard Stop 01/01/25 15:18:00 EDT, 01/07/24 15:18:00 EDT, Solution, [facility]/pharmacy #[id number], Partial fill upon patient request if the prescription is for a sche... Start Date: 01/07/24 Stop Date: 01/01/25 Status: Ordered amLODIPine 10 mg oral tablet 1 tablet, By Mouth, Daily, # 90 tablet, 1 Refills, Maintenance, 12/22/23 8:21:00 EDT, [facility]/pharmacy #[id number], 155, cm, 10/12/23 16:44:00 [...] 6 Refills, Maintenance, 06/29/23 15:09:00 EDT, [facility]/pharmacy #[id number], 155, cm, 06/29/23 14:50:00 EDT, Height, 52.25, kg, 04/27/22 14:46:00 EDT, Dry Weight Start Date: 06/29/23 Status: Ordered budesonide-formoterol 160 mcg-4.5 mcg/inh inhalation aerosol with adapter 2, puffs, Inhalation, 2 times a day, # 30.6 each, Refills 11, Tot. Refills 11, Maintenance, 03/03/24 11:43:00 EDT, Route to Pharmacy Electronically, [id number], [facility]/pharmacy#[id number], 155, cm, 03/03/24 8:56:00 EDT, Height, [...] 13:34:00 EST, Route to Pharmacy Electronically, [facility]/pharmacy #[id number], Partial fill upon patient request if the prescription is for a schedule II o... Start Date: 09/28/23 Stop Date: 09/22/24 Status: Ordered fluticasone 50 mcg/inh nasal spray 1 sprays, Nares, Both, 2 times a day, # 16 Gm, 11 Refills, Maintenance, 06/29/23 15:10:00 EDT, Nasal [place], [facility]/pharmacy #[id number], Partial fill upon patient request if the prescription is for a scheduleII opioid drug., 1 sprays Nares, Both 2 times a day... Start Date: 06/29/23 Status: Ordered hydroCHLOROthiazide 12.5 mg oral capsule 1 capsule, By Mouth, Daily, # 90 capsule, 1 Refills, Maintenance, 03/14/24 11:38:00 EDT, [facility]/pharmacy #[id number], 155, cm, 03/03/24 8:56:00 EDT, Height, 52.25, kg, 04/27/22 14:46:00 EDT, Dry Weight Start Date: 03/14/24 Status: Ordered levothyroxine 0.05 mg oral tablet 1 tablet, By Mouth, Daily, # 90 tablet, 1 Refills, Maintenance, 02/26/24 4:51:00 EDT, [facility]/pharmacy #[id number], 155, cm, 01/17/24 10:49:00 EDT, Height, 52.25, kg, 04/27/22 14:46:00 EDT, Dry Weight Start Date: 02/26/24 Status: Ordered LORazepam 0.5 mg oral tablet 1 tablet = 0.5 mg, By Mouth, Daily, PRN for anxiety, # 24 tablet, 1 Refills, Maintenance, 12/11/23 9:46:00 EDT, Tablet, [facility]/pharmacy #[id number], 155, cm, 10/12/23 16:44:00 EST, Height, 52.25, kg, 04/27/2214:46:00 EDT, Dry Weight Start Date: 12/11/23 Status: Ordered losartan 100 mg oral tablet 1 tablet, By Mouth, Daily, # 90 tablet, 1 Refills, Maintenance, 12/22/23 8:20:00 EDT, [facility]/pharmacy #[id number], 155, cm, 10/12/23 16:44:00 [...] 4 Refills, Maintenance, 03/03/24 13:00:00 EDT, [facility]/pharmacy #[id number], 155, cm, 03/03/24 8:56:00 EDT, Height, 52.25, kg, 04/27/22 14:46:00 EDT, Dry Weight Start Date: 03/03/24 Status: Ordered Spiriva HandiHaler 18 mcg inhalation capsule 1 capsule = 18 mcg, Inhalation, Daily, # 90 capsule, 3 Refills, Maintenance, 01/07/24 15:17:00 EDT,[facility]/pharmacy #[id number], Partial fill upon patient request if the prescription is for a schedule II opioid drug., 155, cm, 01/07/24 14:45:00 EDT, Height, 52... Start Date: 01/07/24 Stop Date: 01/01/25 Status: Ordered Symbicort 160mcg/4.5mcg Inhaler 2, puffs, Inhalation, 2 times a day, # 3 each, Refills 3, Tot. Refills 3, Maintenance, 01/07/24 15:17:00 EDT, Aerosol, Route to Pharmacy Electronically, [id number], [facility]/pharmacy #[id number], 155, cm, 01/07/24 14:45:00 EDT, Height,... Start Date: 01/07/24 Stop Date: 01/01/25 Status: Ordered valACYclovir 500 mg oral tablet 1, tablet, By Mouth, Daily, # 90 tablet, Refills 1, Tot. Refills 1, Maintenance, 03/14/24 11:38:00 EDT, Route to Pharmacy Electronically, [facility]/pharmacy #[id number], 155, cm, 03/03/24 8:56:00 EDT, Height, 52.25, kg, 04/27/22 14:46:00 EDT, Dry Weight Start Date: 03/14/24 Status: Ordered Ventolin HFA 108 mcg/inh inhalation aerosol with adapter 2 puffs, Inhalation, Every 6 hours, PRN for wheezing, # 8 Gm, 11 Refills, Maintenance, 11/20/23 9:54:00 EST, Aerosol, [facility]/pharmacy #[id number], Partial fill upon patient [...] Personnel Name: Maria G Mendez RN Position: [facility] RN Member Role: Primary Care Nurse Name: Barby Frias Position: [facility] Outreach Member Role: Lifetime Consulting Physician Name: Miko Marshall MD Position: [facility] Physician - Primary Care Member Role: PCP Address: Address: [address] [place] [address]- [place] Name: Zachary Biswas MD Position: [facility] Renal MD Member Role: Lifetime Consulting Physician Address: Address: [address] [facility] [place] [address]- Name: Sridhar De Leon RN Position: [facility] RN Member Role: Primary Care Nurse Care Team Related Persons Name: MU CONTRERAS Address: [place] [address] Name: SHANELL COBIAN Address: [address] [address]
--- OUTSIDE RECORDS SUMMARY | 2024-07-03 12:11 | XMS_ITS | Continuity of Care Document ---
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 Name Role Phone Joanna VO, Miko Guillen Primary Care Physician [facility] - 12/14/21 [facility] Adult [address] [place] [address]- Attending Physician: Admtr, Ar8 Admitting Physician: Admtr, [...] n 1Admin Note: historical data 2Location History: [facility] 3Result Comment: [06/23/2016] HIGH DOSE 4Admin Note: FLUARIX 5Admin Note: VIS GIVEN 6Admin Note: [facility] info given to patient 7Admin Note: GIANCARLO 8Result Comment: OOP 9Admin Note: RUDDY 10Admin Note: Information sheet given 11Admin Note: [...] 9:38:00 EST, Route to Pharmacy Electronically, [facility]/pharmacy #[id number], Partial fill upon patient request if the prescription is for a schedule II opioid drug.... Start Date: 09/02/21 Status: Ordered atorvastatin 10 mg oral tablet 0.5 tablet, By Mouth, Daily, # 45 tablet, 1 Refills, [facility], 155, cm, 05/16/21 12:39:00 EDT, Height Start Date: 06/07/21 Status: Ordered budesonide-formoterol 160 mcg-4.5 mcg/inh inhalation aerosol with adapter 2, puffs, Inhalation, 2 times a day, # 30.6 each, Refills 1, Route to Pharmacy Electronically, [id number], [facility], 155, cm, 05/16/21 12:39:00 EDT, Height Start Date: 06/25/21 Status: Ordered Centrum Silver By Mouth, Daily, 0 Refills, Maintenance, 01/11/17 14:23:47 Start Date: 01/11/17 Status: Ordered cloNIDine 0.1 mg oral tablet 0.1 mg, 1, tablet, By Mouth, 2 times a day, # 180 tablet, Refills 3, Tot. Refills 3, Maintenance, 09/02/21 9:38:00 EST, Route to Pharmacy Electronically, [facility]/pharmacy #[id number], Partial fill upon patientrequest if the prescription is for a schedule II op... Start Date: 09/02/21 Status: Ordered hydroCHLOROthiazide 12.5 mg oral capsule 1 capsule = 12.5 mg, By Mouth, Daily, # 90 capsule, 3 Refills, Maintenance, 10/19/21 11:02:00 EST, Capsule, [facility]/pharmacy #[id number], Partial fill upon patient request if the prescription is for a scheduleII opioid drug., 155, cm, 10/05/21 13:33:00 EST, He... Start Date: 10/19/21 Status: Ordered levothyroxine 0.05 mg oral tablet 1 tablet, By Mouth, Daily, # 90 tablet, 1 Refills, [facility], 155, cm, 08/05/21 11:25:00 EST,Height Start Date: 09/01/21 Status: Ordered LORazepam 0.5 mg oral tablet 1 tablet = 0.5 mg, By Mouth, Daily, PRN for anxiety, # 24 tablet, 1 Refills, Maintenance, 09/02/21 9:33:00 EST, Tablet, [facility]/pharmacy #[id number], 155, cm, 09/02/21 8:06:00 EST, Height Start Date: 09/02/21 Status: Ordered losartan 100 mg oral tablet 1 tablet, By Mouth, Daily, # 90 tablet, 0 Refills, [facility], 155, cm, 09/02/21 8:06:00 EST, Height Start [...] 7:30:00 EST, Aerosol, Route to Pharmacy Electronically, [id number], [facility]/pharmacy #[id number], 158, cm, 09/30/20 1... Start Date: 11/22/20 Stop Date: 01/21/21 Status: Ordered Spiriva HandiHaler 18 mcg inhalation capsule 1 capsule, Inhalation, Daily, # 90 capsule, 1 Refills, Maintenance, 10/07/21 11:00:00 EST, [facility], 155, cm, 10/05/21 13:33:00 EST, Height Start Date: 10/07/21 Status: Ordered valACYclovir 500 mg oral tablet 1, tablet, By Mouth, Daily, # 30 tablet, Refills 11, Route to Pharmacy Electronically, [facility] 00660, 155, cm, 10/05/21 13:33:00 EST, Height Start [...] CT measuring 4.1 cm. 2CT scan 2015 82078; repeat 2028 4colo 2008 nl, repeat 2018 5colo 2018 6egd 2012 no barretts 7colo [...]
--- OUTSIDE RECORDS SUMMARY | 2024-07-03 12:11 | XMS_ITS | Continuity of Care Document ---
Author Organization [facility] Samir Durga lt Address [address] [place] [address]- Care Team Providers Care Wire Tinner Name Role Phone Miko Marshall MD Primary Care Physician [facility]): [facility] - 02[facility]28/23 [facility] Adult [address] [place] [address]- Encounter Diagnosis Alcohol intake above recommended sensible limits without complication(Discharge Diagnosis) - 02/21/23 Ascending aortic aneurysm(Discharge Diagnosis) - 02/21/23 COPD (chronic obstructive pulmonary disease)(Discharge Diagnosis) - 02/21/23 Gastroesophageal reflux disease with hiatal hernia(Discharge Diagnosis) - 02/21/23 HTN (hypertension)(Discharge Diagnosis) - 02/21/23 Hypercholesterolemia(Discharge Diagnosis) - 02/21/23 Thoracic aortic aneurysm(Discharge Diagnosis) - 02/21/23 Attending Physician: Miko Marshall MD Allergies, Adverse [...] FLUARIX 4Admin Note: VIS GIVEN 5Admin Note: [facility] info given to patient 6Admin Note: GIANCARLO [...] 25.5 each, 1 Refills, Maintenance,05/25/22 15:32:00 EDT, [facility], 75, INHALE 2 PUFFS 4 TIMES A DAY WHEN NEEDED FOR WHEEZING, 155, cm, 04/27/22 14:46:00 EDT, Height, 52.25, kg, 0... Start Date: 05/25/22 Status: Ordered amLODIPine 10 mg oral tablet 10 mg, 1, tablet, By Mouth, Daily, # 90 tablet, Refills 3, Tot. Refills 3, Maintenance, 11/22/22 16:38:00 EST, Route to Pharmacy Electronically, [facility]/pharmacy #[id number], Partial fill upon patient request [...] 45 tablet, 3 Refills, 04/10/22 13:41:00 EDT, [facility]/pharmacy #[id number], 155, cm, 04/10/22 13:29:00 EDT, Height Start Date: 04/10/22 Status: Ordered budesonide-formoterol 160 mcg-4.5 mcg/inh inhalation aerosol with adapter 2, puffs, Inhalation, 2 times a day, # 30.6 each, Refills 1, Maintenance, 02/23/23 8:46:00 EDT, Route to Pharmacy Electronically, [id number], [facility], 155, cm, 02/21/23 10:28:00 EDT, Height, 52.25, [...] Refills, Maintenance, 12/28/22 7:50:00 EDT, [facility], 155, cm, 10/16/22 12:48:00 EST, Height, 52.25, kg, 04/27/22 14:46:00 EDT, Dry Weight Start Date: 12/28/22 Status: Ordered levothyroxine 0.05 mg oral tablet 1 tablet, By Mouth, Daily, # 90 tablet, 1 Refills, Maintenance, 09/06/22 15:47:00 EST, [facility], 155, cm, 06/12/22 14:03:00 EDT, Height, 52.25, kg, 04/27/22 14:46:00 EDT, Dry Weight Start Date: 09/06/22 Status: Ordered LORazepam 0.5 mg oral tablet 1 tablet = 0.5 mg, By Mouth, Daily, PRN for anxiety, # 24 tablet, 1 Refills, Maintenance, 10/18/22 10:48:00 EST, Tablet, [facility]/pharmacy #[id number], 155, cm, 10/16/22 12:48:00 EST, Height, 52.25, kg, 04/27/22 14:46:00 EDT, Dry Weight Start Date: 10/18/22 Status: Ordered losartan 100 mg oral tablet 1 tablet, By Mouth, Daily, # 90 tablet, 3 Refills, Maintenance, 11/22/22 16:38:00 EST, [facility]/pharmacy#[id number], 155, cm, 10/16/22 12:48:00 EST, Height, [...] 12/22/22 9:50:00 EDT, Route to Pharmacy Electronically, [facility], 155, cm, 10/16/22 12:48:00 EST, Height, 52.25, [...] added by Discern Expert 6colo 2019 7egd 2012 no barretts 8colo 2019 9Status post laparotomy with lysis of adhesions and repair of incarcerated ventral hernia. Surgery performed March 2018. 10Thyroid peroxidase antibody positive Diagnosis Diagnosis Type Effective Dates Health Status Clinical Service Informant Alcohol intake above recommended sensible limits without complication Discharge Diagnosis 02/21/23 Ascending aortic aneurysm Discharge Diagnosis 02/21/23 COPD (chronic obstructive pulmonary disease) Discharge Diagnosis 02/21/23 Gastroesophageal reflux disease with hiatal hernia Discharge Diagnosis 02/21/23 HTN (hypertension) Discharge Diagnosis 02/21/23 Hypercholesterolemia Discharge Diagnosis 02/21/23 Thoracic aortic aneurysm Discharge Diagnosis 02/21/23 Vital Signs Most recent to oldest [Reference Range]: 1 Height 155 cm (02/21/23 10:28 AM) Weight 55.1 kg (02/21/23 10:28 AM) Oxygen Saturation [94-100 %] 97 % (02/21/23 10:28 AM) Pulse Rate [55-90 bpm] 65 bpm (02/21/23 10:28 AM) Body Mass Index [18.5-24.99 kg/m2] 22.93 kg/m2 (02/21/23 10:28 AM) Blood Pressure [90-138/55-84 mm Hg] 102/ 72mm Hg (02/21/23 10:28 AM) Mode of Delivery (Oxygen) Room air (02/21/23 10:28 AM) Blood pressure sites Arm, left (02/21/23 10:28 AM) Weight Obtained Via Standing scale (02/21/23 10:28 AM) Social History Social History Type Response Smoking Status Former smoker; Other : quit 15 years ago; entered on: 03/16/16 Sex Female Patient Care team information Care Team Personnel Name: Maria G Mendez RN Position: S RN Member Role: Primary Care Nurse Name: Barby Frias Position: S Outreach Member Role: Lifetime Consulting Physician Name: Miko Marshall MD Position: [facility] Physician - Primary Care Member Role: PCP Address: Address: [address] [place] [address]- Name: Zachary Biswas MD Position: [facility] Renal MD Member Role: Lifetime Consulting Physician Address: Address: [address] [place] [address] [address] [facility] [place] [address]- Name: Moises BAH, Sridhar Position: S RN Member Role: Primary Care Nurse Care Team Related Persons Name: MU CONTRERAS Address: [place] [address] Name: SHANELL COBIAN Address: [address] [address]
--- OUTSIDE RECORDS SUMMARY | 2024-07-03 12:11 | XMS_ITS | Continuity of Care Document ---
Author Organization [facility] Eduardo Dawson Durga lt Address [address] [place] [address]- Care Team Providers Care Intelligence Agent Name Role Phone Miko Marshall MD Primary Care Physician [facility]counter [facility] Date(s): 06/05/24 - 06/12/24 [facility] Eduardo Dawson Adult [address] [place] [address]- Attending Physician: Miko Marshall MD Allergies, Adverse [...] 10 06/24/08 Give n 1Result Comment: [facility]: [id number] 2[facility] History[facility] 3Result Comment: [06/23/2016] HIGH DOSE 4Admin Note: FLUARIX 5Admin Note: VIS GIVEN 6Admin Note: [facility] info given to patient 7Admin Note: [facility] [...] 3 Refills, Maintenance, 01/01/25 15:18:00 EDT, Solution, [facility]/pharmacy #[id number], Partial fill upon patient request if the prescription is for a schedule II opioid drug., 155,... Start Date: 01/01/25 Stop Date: 12/27/25 Status: Ordered amLODIPine 10 mg oral tablet 1 tablet, By Mouth, Daily, # 90 tablet, 1 Refills, Maintenance, 12/22/23 8:21:00 EDT, [facility]/pharmacy #[id number], 155, cm, 10/12/23 16:44:00 EST, [...] tablet, 6 Refills, Maintenance, 06/29/23 15:09:00 EDT, [facility]/pharmacy #[id number], 155, cm, 06/29/23 14:50:00 EDT, Height, 52.25, kg, 04/27/22 14:46:00 EDT, Dry Weight Start Date: 06/29/23 Status: Ordered budesonide-formoterol 160 mcg-4.5 mcg/inh inhalation aerosol with adapter 2, puffs, Inhalation, 2 times a day, # 30.6 each, Refills 11, Tot. Refills 11, Maintenance, 03/03/24 11:43:00 EDT, Route to Pharmacy Electronically, [id number], [facility]/pharmacy#[id number], 155, cm, 03/03/24 8:56:00 EDT, Height, [...] 09/28/23 13:34:00 EST, Route to Pharmacy Electronically, [facility]/pharmacy #[id number], Partial fill upon patient request if the prescription is for a schedule II o... Start Date: 09/28/23 Stop Date: 09/22/24 Status: Ordered fluticasone 50 mcg/inh nasal spray 1 sprays, Nares, Both, 2 times a day, # 16 Gm, 11 Refills, Maintenance, 06/29/23 15:10:00 EDT, Nasal [place], [facility]/pharmacy #[id number], Partial fill upon patient request if the prescription is for a scheduleII opioid drug., 1 sprays Nares, Both 2 times a day... Start Date: 06/29/23 Status: Ordered gabapentin 100 mg oral capsule 100 mg, 1, capsule, By Mouth, 3 times a day, # 90 capsule, Refills 1, Tot. Refills 1, Maintenance, 06/05/24 11:36:00 EDT, Route to Pharmacy Electronically, [facility]/pharmacy #[id number], Partial fill upon patient request [...] 1 Refills, Maintenance, 12/11/23 9:46:00 EDT, Tablet, [facility]/pharmacy #[id number], 155, cm, 10/12/23 16:44:00 EST, Height, 52.25, kg, 04/27/2214:46:00 EDT, Dry Weight Start Date: 12/11/23 Status: Ordered losartan 100 mg oral tablet 1 tablet, By Mouth, Daily, # 90 tablet, 1 Refills, Maintenance, 12/22/23 8:20:00 EDT, [facility]/pharmacy #[id number], 155, cm, 10/12/23 16:44:00 EST, [...] 90 capsule, 3 Refills, Maintenance, 01/07/24 15:17:00 EDT,[facility]/pharmacy #[id number], Partial fill upon patient request if the prescription is for a schedule II opioid drug., 155, cm, 01/07/24 14:45:00 EDT, Height, 52... Start Date: 01/07/24 Stop Date: 01/01/25 Status: Ordered valACYclovir 500 mg oral tablet 1, tablet, By Mouth, Daily, # 90 tablet, Refills 1, Tot. Refills 1, Maintenance, 03/14/24 11:38:00 EDT, [id number], cm, 03/03/24 8:56:00 EDT, Height, 52.25, kg, 04/27/22 14:46:00 EDT, Dry Weight Start Date: 03/14/24 Status: Ordered Ventolin HFA 108 mcg/inh inhalation aerosol with adapter 2 puffs, Inhalation, 4 times a day, PRN for wheezing, # 3 each, 3 Refills, Maintenance, 01/07/24 15:20:00 EDT, Aerosol, [facility]/pharmacy #[id number], Partial fill upon patient request [...] CT measuring 4.[address]. 2CT scan 2016 [address]12; repeat 2028 4colo 2009 nl, repeat 2019 5Problem added by Discern Expert 6colo 2018 7egd 2012 no barretts 8colo 2018 9Status post laparotomy with lysis of adhesions and repair of incarcerated ventral hernia. Surgery performed March 2018. 10Thyroid peroxidase antibody positive Vital Signs Most recent to oldest [Reference Range]: 1 Height 155 cm (06/05/24 11:12 AM) Weight 56.7 kg (06/05/24 11:12 AM) Oxygen Saturation [94-100 %] 94 % (06/05/24 11:12 AM) Pulse Rate [55-90 bpm] 70 bpm (06/05/24 11:12 AM) Body Mass Index [18.5-24.99 kg/m2] 23.6 kg/m2 (06/05/24 11:12 AM) Blood Pressure [90-138/55-84 mm Hg] 112/ 70mm Hg (06/05/24 11:12 AM) Mode of Delivery (Oxygen) Room air (06/05/24 11:12 AM) Blood pressure sites Arm, left (06/05/24 11:12 AM) Weight Obtained Via Standing scale (06/05/24 11:12 AM) Social History Social History Type Response Smoking Status Former smoker, quit more than 30 days ago entered on: 01/07/24 Sex Female Note * Lydia Adam: PERFORM Event Display: Patient Education/Instruction Authored Date: Ambulatory Adult Visit Summary [facility] [place], [facility] Adult [facility] Guerda Samir Adlt [address] [place] [address] Name: SATHISH MARIE : 1945?? Visit: 06/05/2024 11:03?? Ambulatory Visit Instructions ?? Your Care Team Primary Care Provider Miko Marshall MD? This Visit Provider Miko Marshall MD Your Diagnosis [place] (trigeminal neuralgia) Vitals Signs Pulse Rate: 70 bpm Height: 155 cm Systolic Blood Pressure: 112 mm Hg Weight: 56.7 kg Diastolic Blood Pressure: 70 mm Hg Body Mass Index: 23.6 kg/m2 Oxygen Saturation: 94 % Body surface area: 1.56 What to do next Instructions From Your Provider Thank you for coming in??for your visit.?? I believe you are suffering from trigeminal neuralgia??which is the cause of your headaches.?? You should be getting an information sheet about this diagnosis.?? I am going to do some blood work and a sinus x-ray??and I am going to order an MRI of your brain??to make sure that your headaches are not??from a more serious cause.?? I am going to start you on gabapentin??100 mg 3 times daily.?? If your headaches are from trigeminal neuralgia??this medication should be helpful. Scheduled Follow-Up Appointments Sunday 4:40 PM EST ?? With: Erich Pham MD Where: [address] [address]- Status: Pending Sunday 10:50 AM EST ?? With: Miko Marshall MD Where: [address] [address]- Status: Pending Follow-Up Appointments Follow Up with??Miko Marshall MD Why: As scheduled Where: ?? Future Orders MRI Brain W/O Contrast, Routine, Reason for Exam: Other:, Headache, new or worsening, New onset severe unilateral headache, rule out space-occupying lesion., No-No Pacemaker or Neurostimulator, Can Patient Stand Alone?, Once, *Est. 06/05/24 XR Sinuses Comp Min 3 Views, Routine, Reason for Exam: Pain, Once, *Est. 06/05/24 CBC - Routine, Once, 01/17/24 11:11:00 EDT, Order for Today, [facility], Blood?? Comprehensive Metabolic Panel - Routine, Once, 01/17/24 11:11:00 EDT, Order for Today, [facility], Blood?? Thyroid Panel - Routine, Once, 01/17/24 11:11:00 EDT, Order for Today, [facility], Blood?? Direct LDL - Routine, Once, 01/17/24 11:11:00 EDT, Future Order, [facility], Blood?? Hemoglobin A1C (Monitoring) (Hemoglobin A1c, (Diagnostic)) - Routine, Once, 01/17/24 11:11:00 EDT, Future Order, [facility], Blood?? CBC - Routine, Once, 06/05/24 11:29:00 EDT, Future Order, [facility], Blood?? Comprehensive Metabolic Panel - Routine, Once, 06/05/24 11:30:00 EDT, Future Order, [facility], Blood?? Sedimentation Rate - Routine, Once, 06/05/24 11:30:00 EDT, Future Order, [facility], Blood?? C Reactive Protein - Routine, Once, 06/05/24 11:30:00 EDT, Future Order, [facility], Blood?? Lyme Disease Ab Screen - Routine, Once, 06/05/24 11:30:00 EDT, Future Order, [facility], Blood?? Medications The list below reflects the information in our records and provided by you today along with any changes made during this visit. Please continue your medications until treatment is completed or stopped by your provider. If this is different from the information you have or there are other questions,please contact the prescribing provider. What How Much When Instructions New Gabapentin (gabapentin 100 mg oral capsule) 1 capsule Oral 3 times a day Refills: 1 Pickup at [facility]/pharmacy #[id number] Changed Albuterol (albuterol 0.083% inhalation solution) 3 Milliliter Inhalation Every 6 hours Duration: 90 Days use with nebulizer, j44.9 ?? Changed Albuterol (Ventolin HFA 108 mcg/ inh inhalation aerosol with adapter) 2 puff(s) Inhalation 4 times a day as needed for for wheezing Duration: 90 Days Changed Budesonide-Formoterol (budesonide-formoterol 160 mcg-4.5 mcg/ inh inhalation aerosol with adapter) 2 puff(s) Inhalation Twice a day Changed Tiotropium (Spiriva HandiHaler 18 mcg inhalation capsule) 1 capsule Inhalation Daily Duration: 90 Days Unchanged Amlodipine (amLODIPine 10 mg oral tablet) 1 tab(s) Oral Daily Unchanged Aspirin (aspirin 81 mg oral delayed release tablet) 1 tab(s) Oral Daily Unchanged Atorvastatin (atorvastatin 10 mg oral tablet) 0.5 tab(s) Oral Daily Unchanged Chlorthalidone (chlorthalidone 25 mg oral tablet) 0.5 tab(s) Oral Daily Unchanged Durable Medical Equipment (Aerochamber) See instructions use with albuterol inhaler. ?? Unchanged Durable Medical Equipment (Compression Stockings) See instructions surgical, calf length 20-30 mm Hg ?? Unchanged Durable Medical Equipment (Nebulizer/ Compressor) See instructions E0570 Nebulizer A7003 Neb Disp Set ??A7014 Neb non-Disp Filter ??A7005 Neb Non- Disp set A7015 Aerosol Mask A7013 Neb Disp Filter ??length of need lifetime 99 months ??for home use ??dx J45.909 ?? Unchanged Famotidine (famotidine 20 mg oral tablet) 1 tab(s) Oral Twice a day Duration: 30 Days Unchanged Fluticasone Nasal (fluticasone 50 mcg/ inh nasal spray) 1 spray(s) Nares, Both Twice a day Unchanged Hydrochlorothiazide (hydroCHLOROthiazide 12.5 mg oral capsule) 1 capsule Oral Daily Unchanged Levothyroxine (levothyroxine 0.05 mg oral tablet) 1 tab(s) Oral Daily Unchanged Lorazepam (LORazepam 0.5 mg oral tablet) 1 tab(s) Oral Daily as needed for for anxiety Unchanged Losartan (losartan 100 mg oral tablet) 1 tab(s) Oral Daily Unchanged Magnesium Oxide (magnesium oxide 500 mg oral tablet) 1 tab(s) Oral Daily Unchanged Multivitamin With Minerals (Centrum Silver) Oral Daily Unchanged Polyethylene Glycol 3350 (MiraLax oral powder for reconstitution) 17 gram Oral Daily Unchanged Psyllium (Metamucil 500 mg oral capsule) Unchanged ValACYclovir (valACYclovir 500 mg oral tablet) 1 tab(s) Oral Daily Unchanged Zinc Sulfate (Zinc) 140 Milligram Oral Daily Pharmacy Information [facility]/pharmacy #[id number]: [address], [place] [id number] [phone] Test Performed Below is a partial list of the tests performed during your Visit. You may have had other tests and procedures not included in this list. Please discuss all test results with your provider. C Reactive Protein?-- Results Pending -- CBC?-- Results Pending -- Comprehensive Metabolic Panel?-- Results Pending -- Lyme Disease Ab Screen?-- Results Pending -- Sedimentation Rate?-- Results Pending -- Medications and Immunizations Administered Medications Given During Visit No medications given during this visit.?? Allergies (NKA means No Known Allergies) Adhesive Bandage??(rash swelling) Latex??(rash swelling) Education Materials Below is the list of Educational Leaflet Providered with your Visit summary. [employer] Ignite Patient Education - Trigeminal Neuralgia?? Common Emergency Awareness Tips IS IT A STROKE? Act FAST and Check for these signs: FACE Does the face look uneven? ARM Does one arm drift down? SPEECH Does their speech sound strange? TIME Call at any sign of stroke ?? Heart Attack Signs Chest discomfort: Most heart attacks involve discomfort in the center of the chest and lasts more than a few minutes, or goes away and comes back. It can feel like uncomfortable pressure, squeezing, fullness or pain. Discomfort in upper body: Symptoms can include pain or discomfort in one or both arms, back, neck, jaw or stomach. Shortness of breath: With or without discomfort. Other signs: Breaking out in a cold sweat, nausea, or lightheaded. Remember, MINUTES DO MATTER. If you experience any of these heart attack warning signs, call to get immediate medical attention! ?? Smoking can increase your chances of developing chronic health problems and can cause harmful effects to other family members in your house. If you smoke, you are strongly encouraged to quit. Please call [facility] [employer] Link at [phone] or [phone] [phone] ([phone]) or log in to [email or web address] for referrals to smoking cessation programs. ?? The National Suicide Prevention Hotline is available 09/04 if you or someone you know needs to find a reason to keep living. By calling 5-020-914-SalesVu (8283) you'll be connected to a skilled, trained counselor at a crisis center in your area. [facility] Portal You can view and manage your care through the patient portal or by using a health care ovidio of your choosing. [employer] is a website that allows you to securely view your medical information including your hospital discharge summary, office visit summaries, medications and follow-up visits. You can also request appointments, renew medications, and request access to your medical information using a health care ovidio of your choosing, or just ask a question. You can enroll at [email or web address] or register during your next office visit. [facility], in keeping with [facility] guidance, no longer requires face masks for staff, patientsor visitors in most situations. Similiar to time spent indoors at other locations, there is the chance that you were exposed to repiratory viruses during your time with us (such as flu or COVID-19). If you develop symptoms concerning for a viral respiratory infection, please seek testing (and treatment if indicated) from your medical provider or home test kit. ?? Disclaimer: The information provided is of a general nature and is intended to be used in conjunction with the recommendations and advice of your health care practitioner. Every effort has been made to ensure that the information provided is accurate and complete at the time it is provided to you however, as your needs change, or, as new information becomes available, different or additional instructions may be required. ?? If you have questions, please consult with your primary care provider or pharmacist, as appropriate. This information is not intended to serve as substitution for assessment and evaluation by a qualified health care provider. If you do not have a primary care provider, you may find a [facility] provider by calling [facility] at [phone]. * Joanna VO, Miko Guillen: PERFORM Event Display: Patient Education Leaflets Authored Date: Trigeminal Neuralgia ?? [id number] Trigeminal Neuralgia You have trigeminal neuralgia. This is pain caused by irritation of the trigeminal nerve on your face. Symptoms include sudden, sharp pain in your head or face. It may feel like an electric shock. Itcan last for several seconds or minutes. It often happens on only 1 side of your face. Pain may be triggered by things such as moving your jaw when brushing your teeth or eating. Or by a touch on theskin of your face. The pain may be caused by something irritating the trigeminal nerve, such as a blood vessel pressing against it. But the exact cause of this problem often isn???t known. It can be very painful. But the condition isn???t dangerous. Trigeminal neuralgia is often treated with medicines. These include antiseizure medicines or antidepressants. Certain other treatments may also help. In some cases, you may need surgery. For some people, radiation therapy is needed with a precise tool called gamma knife. This does not make any cuts(incisions). Some people have underlying health problems causing trigeminal neuralgia, such as multiple sclerosis. You may need an imaging test, such as a CT scan or an MRI of the brain and skull. You will be advised if other health problems need treatment. Home care Your healthcare provider may prescribe medicines to help ease and prevent pain. Take all medicines as directed. Please note that it may take several changes in dose and medicines before the right combination is found that controls the pain. General care: ??? Plan to rest at home today. ??? Don't do any specific activities that seem to trigger the pain. ??? Over the next few weeks, keep a pain diary. Write down when your symptoms happen and how they feel. Certain activities, such as touching your face, chewing, talking, or brushing your teeth, may bring on the pain. Cold air can also trigger the pain. Make sure you write down any triggers and discuss these with your provider. This will help guide treatment. ?? Follow-up care Follow up with your healthcare provider, or as advised. If you were referred to a specialist, be sure to make an appointment. ?? When to get medical advice Call your healthcare provider right away??if any of these occur: ??? Fever of 100.4??F (38??C) or higher, or as advised by your provider ??? Headache with very stiff neck ??? You aren???t able to keep liquids down (repeated vomiting) ??? Extreme drowsiness or confusion ??? Dizziness or fainting ???A new feeling of weakness or numbness or tingling in your arm, leg, or face ??? Trouble speaking orseeing ?? Last Reviewed Date: 2022 ?? 7311-5976 [employer]. All rights reserved. This information is not intended as a substitute for professional medical care. Always follow your healthcare professional's instructions. ?? Patient Care team information Care Team Personnel Name: Maria G Mendez RN Position: [facility] RN Member Role: Primary Care Nurse Name: Barby Frias Position: [facility] Outreach Member Role: Lifetime Consulting Physician Name: Miko Marshall MD Position: [facility] Physician - Primary Care Member Role: PCP Address: Address: [address] [place] [address]- [place] Name: Zachary Biswas MD Position: [facility] Renal MD Member Role: Lifetime Consulting Physician Address: Address: [address] [place] [address] [address] [facility] [place] [place] [address]- Name: Moises BAH, Sridhar Position: [facility] RN Member Role: Primary Care Nurse Care Team Related Persons Name: BEN MU Address: [place] [address] Name: SHANELL COBIAN Address: [address] [address]
--- OUTSIDE RECORDS SUMMARY | 2024-07-03 12:11 | XMS_ITS | Continuity of Care Document ---
Author Organization [facility] Eduardo Dawson Durga lt Address [address] [place] [address]- Care Team Providers Care Engraver Steel Plate Name Role Phone Joanna VO, Miko Guillen Primary Care Physician [phone] [facility]counter [facility] Date(s): 11/25/20 - 12/25/20 [facility] Adult [address] [place] [address]- Allergies, Adverse Reactions, Alerts Substance Reaction Severity [...] 0 Refills, Maintenance, 01/21/20 11:38:00 EDT, Capsule, [facility]/pharmacy #[id number], 1 capsule By Mouth Every [...] 09/01/20 11:20:00 EST, Route to Pharmacy Electronically, [facility]/pharmacy #[id number], Partial fill upon patient requestif the prescription is for a schedule II opioid tian... Start Date: 09/01/20 Status: Ordered atorvastatin 10 mg oral tablet 0.5, By Mouth, Daily, # 45 tablet, 1 Refills, Maintenance, 10/16/20 11:28:00 EST, Tablet, [facility]/pharmacy #[id number], 158, cm, 09/30/20 14:41:00 EST, Height Start Date: 10/16/20 Status: Ordered Centrum Silver By Mouth, Daily, 0 Refills, Maintenance, 01/11/17 14:23:47 Start Date: 01/11/17 Status: Ordered cloNIDine 0.1 mg oral tablet 0.1 mg, 1, tablet, By Mouth, 2 times a day, # 60 tablet, Refills 5, Tot. Refills 5, Maintenance, 09/01/20 11:20:00 EST, [id number] Partial fill upon patientrequest if the prescription is for a schedule II op... Start Date: 09/01/20 Status: Ordered levothyroxine 0.05 mg oral tablet 1 tablet, By Mouth, Daily, # 90 tablet, 1 Refills, Maintenance, 09/07/20 9:19:00 EST, [facility]/pharmacy #[id number], 158, cm, 09/01/20 9:29:00 EST, Height Start Date: 09/07/20 Status: Ordered LORazepam 0.5 mg oral tablet 1 tablet = 0.5 mg, By Mouth, Daily, PRN for anxiety, # 24 tablet, 1 Refills, Maintenance, 08/09/20 10:16:00 EST, Tablet, [id number] 158, cm, 08/09/20 9:40:00 EST, Height Start Date: 08/09/20 Status: Ordered losartan 100 mg oral tablet 1 tablet = 100 mg, By Mouth, Daily, # 30 tablet, 5 Refills, Maintenance, 09/01/20 11:21:00 EST, Tablet, [facility]/pharmacy #[id number], Partial fill upon patient request [...] tablet, 1 Refills, Maintenance, 03/26/20 14:17:00 EDT, [facility]/pharmacy #[id number], 158, cm, 03/10/20 14:43:00 EDT, Height, 57.6, kg, 05/21/18 14:53:00 EDT, Dry Weight Start Date: 03/26/20 Stop Date: 05/25/20 Status: Ordered ProAir HFA 90 mcg/inh inhalation aerosol with adapter 2, puffs, Inhalation, 4 times a day, PRN, NEW RX PER AFAY, # 3 each, Refills 1, Tot. Refills 1, Maintenance, 11/22/20 7:30:00 EST, Aerosol, Route to Pharmacy Electronically, [id number], [facility]/pharmacy #[id number], 158, cm, 09/30/20 1... Start [...] 12:01:00 EDT, Aerosol, Route to Pharmacy Electronically, [id number], [facility]/pharmacy #[id number], 158, cm, 06/21/20 12:56:0... Start Date: 06/30/20 Status: Ordered Valtrex 500 mg oral tablet 500 mg, 1, tablet, By Mouth, Daily, # 30 tablet, Refills 11, Tot. Refills 11, Maintenance, 10/19/2111:02:00 EST, Route to Pharmacy Electronically, [facility]/pharmacy #[id number], 158, cm, 09/30/20 14:41:00 EST,Height Start [...] CT measuring 4.1 cm. 2CT scan 2015 [address]; repeat 2028 4colo 2008 nl, repeat 2018 [...]
--- OUTSIDE RECORDS SUMMARY | 2024-07-03 12:11 | XMS_ITS | Continuity of Care Document ---
Author Organization [facility] Samir Durga lt Address [address] [place] [address]- Care Team Providers Care Social Worker Delinquency Prevention Name Role Phone Miko Marshall MD Primary Care Physician [facility]23 - 02/16/23 [facility] Adult [address] [place] [address]- Attending Physician: Miko Marshall MD Allergies, Adverse [...] FLUARIX 4Admin Note: VIS GIVEN 5Admin Note: [facility] info given to patient 6Admin Note: GIANCARLO [...] 1 Refills, Maintenance,05/25/22 15:32:00 EDT, [facility], 75, INHALE 2 PUFFS 4 TIMES A DAY WHEN NEEDED FOR WHEEZING, 155, cm, 04/27/22 14:46:00 EDT, Height, 52.25, kg, 0... Start Date: 05/25/22 Status: Ordered amLODIPine 10 mg oral tablet 10 mg, 1, tablet, By Mouth, Daily, # 90 tablet, Refills 3, Tot. Refills 3, Maintenance, 03/08/23 16:38:00 EST, Route to Pharmacy Electronically, [facility]/pharmacy #[id number], Partial fill upon patient request if the prescription is for a schedule II opioid drug... Start Date: 11/22/22 Status: Ordered atorvastatin 10 mg oral tablet 0.5 tablet, By Mouth, Daily, # 45 tablet, 3 Refills, 04/10/22 13:41:00 EDT, [facility]/pharmacy #7111, 155, cm, 04/10/22 13:29:00 EDT, Height Start Date: 04/10/22 Status: Ordered budesonide-formoterol 160 mcg-4.5 mcg/inh inhalation aerosol with adapter 2, puffs, Inhalation, 2 times a day, # 30.6 each, Refills 1, Tot. Refills 1, 07/17/22 13:30:00 EDT,Route to Pharmacy Electronically, [id number], [facility]/pharmacy #7111, 155, cm, 06/12/22 14:03:00 EDT, Height, [...] Refills, Maintenance, 12/28/22 7:50:00 EDT, [facility], 155, cm, 10/16/22 12:48:00 EST, Height, 52.25, kg, 04/27/22 14:46:00 EDT, Dry Weight Start Date: 12/28/22 Status: Ordered levothyroxine 0.05 mg oral tablet 1 tablet, By Mouth, Daily, # 90 tablet, 1 Refills, Maintenance, 09/06/22 15:47:00 EST, [facility], 155, cm, 06/12/22 14:03:00 EDT, Height, 52.25, kg, 04/27/22 14:46:00 EDT, Dry Weight Start Date: 09/06/22 Status: Ordered LORazepam 0.5 mg oral tablet 1 tablet = 0.5 mg, By Mouth, Daily, PRN for anxiety, # 24 tablet, 1 Refills, Maintenance, 10/18/22 10:48:00 EST, Tablet, [facility]/pharmacy #7111, 155, cm, 10/16/22 12:48:00 EST, Height, 52.25, kg, 04/27/22 14:46:00 EDT, Dry Weight Start Date: 10/18/22 Status: Ordered losartan 100 mg oral tablet 1 tablet, By Mouth, Daily, # 90 tablet, 3 Refills, Maintenance, 11/22/22 16:38:00 EST, [facility]/pharmacy#7111, 155, cm, 10/16/22 12:48:00 EST, Height, 52.25, [...] 12/22/22 9:50:00 EDT, Route to Pharmacy Electronically, [facility], 155, cm, 10/16/22 12:48:00 EST, Height, 52.25, [...] CT measuring 4.1 cm. 2CT scan 2016 29898; repeat 2028 4colo 2008 nl, repeat 2019 [...] Personnel Name: Maria G Mendez RN Position: [facility] RN Member Role: Primary Care Nurse Name: Barby Frias Position: [facility] Outreach Member Role: Lifetime Consulting Physician Name: Miko Marshall MD Position: [facility] Physician - Primary Care Member Role: PCP Address: Address: [address] [facility] [place] [address]- [place] Name: Zachary Biswas MD Position: [facility] Renal MD Member Role: Lifetime Consulting Physician Address: Address: [address] [facility] [place] [address]- [place] Name: Sridhar De Leon RN Position: [facility] RN Member Role: Primary Care Nurse Care Team Related Persons Name: MU CONTRERAS Address: [place] [address] Name: SHANELL COBIAN Address: home [address] [place] [id number]
--- OUTSIDE RECORDS SUMMARY | 2024-07-03 12:11 | XMS_ITS | Continuity of Care Document ---
Author Organization [facility] Eduardo Dawson Durga lt Address [address] [place] [address]- Care Team Providers Care Floor Tech Name Role Phone Joanna VO, Miko Guillen Primary Care Physician [phone] [facility] 12/15/21 - 01/14/22 [facility] Adult [address] [place] [address]- Allergies, Adverse Reactions, Alerts Substance Reaction Severity [...] n 1Admin Note: historical data 2Location History: [facility] 3Result Comment: [06/23/2016] HIGH DOSE 4Admin Note: FLUARIX 5Admin Note: VIS GIVEN 6Admin Note: [facility] info given to patient 7Admin Note: GIANCARLO [...] 09/02/21 9:38:00 EST, Route to Pharmacy Electronically, [facility]/pharmacy #[id number], Partial fill upon patient request if the prescription is for a schedule II opioid drug.... Start Date: 09/02/21 Status: Ordered atorvastatin 10 mg oral tablet 0.5 tablet, By Mouth, Daily, # 45 tablet, 1 Refills, [facility], 155, cm, 11/14/21 13:39:00 EST, Height Start Date: 12/16/21 Status: Ordered budesonide-formoterol 160 mcg-4.5 mcg/inh inhalation aerosol with adapter 2, puffs, Inhalation, 2 times a day, # 30.6 each, Refills 1, Route to Pharmacy Electronically, [id number], [facility], 155, cm, 05/16/21 12:39:00 EDT, Height Start Date: 06/25/21 Status: Ordered Centrum Silver By Mouth, Daily, 0 Refills, Maintenance, 01/11/17 14:23:47 Start Date: 01/11/17 Status: Ordered cloNIDine 0.1 mg oral tablet 0.1 mg, 1, tablet, By Mouth, 2 times a day, # 180 tablet, Refills 3, Tot. Refills 3, Maintenance, 09/02/21 9:38:00 EST, Route to Pharmacy Electronically, [facility]/pharmacy #[id number], Partial fill upon patientrequest if the prescription is for a schedule II op... Start Date: 09/02/21 Status: Ordered hydroCHLOROthiazide 12.5 mg oral capsule 1 capsule = 12.5 mg, By Mouth, Daily, # 90 capsule, 3 Refills, Maintenance, 10/19/21 11:02:00 EST, Capsule, [facility]/pharmacy #7111, Partial fill upon patient request if the prescription is for a scheduleII opioid drug., 155, cm, 10/05/21 13:33:00 EST, He... Start Date: 10/19/21 Status: Ordered levothyroxine 0.05 mg oral tablet 1 tablet, By Mouth, Daily, # 90 tablet, 1 Refills, [facility], 155, cm, 08/05/21 11:25:00 EST,Height Start Date: 09/01/21 Status: Ordered LORazepam 0.5 mg oral tablet 1 tablet = 0.5 mg, By Mouth, Daily, PRN for anxiety, # 24 tablet, 1 Refills, Maintenance, 09/02/21 9:33:00 EST, Tablet, [facility]/pharmacy #[id number], 155, cm, 09/02/21 8:06:00 EST, Height Start Date: 09/02/21 Status: Ordered losartan 100 mg oral tablet 1 tablet, By Mouth, Daily, # 90 tablet, 1 Refills, [facility], 155, cm, 11/14/21 13:39:00 EST,Height Start Date: [...] 7:30:00 EST, Aerosol, Route to Pharmacy Electronically, [id number], [facility]/pharmacy #7111, 158, cm, 09/30/20 1... Start Date: 11/22/20 Stop Date: 01/21/21 Status: Ordered Spiriva HandiHaler 18 mcg inhalation capsule 1 capsule, Inhalation, Daily, # 90 capsule, 1 Refills, Maintenance, 10/07/21 11:00:00 EST, [facility], 155, cm, 10/05/21 13:33:00 EST, Height Start Date: 10/07/21 Status: Ordered valACYclovir 500 mg oral tablet 1, tablet, By Mouth, Daily, # 30 tablet, Refills 11, Route to Pharmacy Electronically, [facility], 155, cm, 10/05/21 13:33:00 EST, Height Start [...]
--- OUTSIDE RECORDS SUMMARY | 2024-07-03 12:11 | XMS_ITS | Continuity of Care Document ---
Author Organization [facility] Eduardo Dawson Durga lt Address [address] [place] [address]- Care Team Providers Care Landcare Facilitator Name Role Phone Miko Marshall MD Primary Care Physician [facility]): 03/17/20 - 04/16/20 [facility] Adult [address] [place] [address]- [facility] Allergies, Adverse Reactions, Alerts Substance Reaction [...] 1 Refills, Maintenance, 09/12/19 13:53:00 EST, Tablet, [facility]/pharmacy #[id number], 158, cm, 05/22/19 10:37:00 EDT, Height, 57.6, kg, 05/21/18 14:53:00 EDT, Dry Weight Start Date: 09/12/19 Status: Ordered losartan 100 mg oral tablet 1 tablet = 100 mg, By Mouth, Daily, replaces valsartan, # 90 tablet, 1 Refills, Maintenance, 03/26/20 14:16:00 EDT, Tablet, [facility]/pharmacy #7111, replaces valsartan, 158, cm, 03/10/20 [...] tablet, 1 Refills, Maintenance, 03/26/20 14:17:00 EDT, [facility]/pharmacy #7111, 158, cm, 03/10/20 14:43:00 EDT, Height, 57.6, kg, 05/21/18 14:53:00 EDT, Dry Weight Start Date: 03/26/20 Stop Date: 05/25/20 Status: Ordered ProAir HFA 90 mcg/inh inhalation aerosol with adapter 2, puffs, Inhalation, 4 times a day, PRN, NEW RX PER AFAY, # 3 each, Refills 1, Tot. Refills 1, Maintenance, 07/30/19 14:51:47 EST, Aerosol, Route to Pharmacy Electronically, [id number], [facility]/pharmacy #7111 Start Date: 07/30/19 Status: Ordered [...] 12:57:08 EST, Aerosol, Route to Pharmacy Electronically, [id number], [facility], 158, cm, 0... Start Date: 08/21/19 Status: Ordered Valtrex 500 mg oral tablet 500 mg, 1, tablet, By Mouth, Daily, # 30 tablet, Refills 11, Tot. Refills 11, Maintenance, 07/25/1811:27:07 EST, Route to Pharmacy Electronically, [id number], [facility]/pharmacy #7111 Start Date: 07/25/18 Status: Ordered [...]
--- OUTSIDE RECORDS SUMMARY | 2024-07-03 12:11 | XMS_ITS | Continuity of Care Document ---
Author Organization [facility] Eduardo Dawson Durga lt Address [address] [place] [address]- Care Team Providers Care Digital Sales Executive Name Role Phone Miko Marshall MD Primary Care Physician [phone] [facility]): 09/01/20 - 09/08/20 [facility] Adult [address] [place] [address]- Encounter Diagnosis HTN (hypertension)(Discharge Diagnosis) - 09/01/20 Attending Physician: Miko Marshall MD Allergies, Adverse [...] 0 Refills, Maintenance, 01/21/20 11:38:00 EDT, Capsule, [facility]/pharmacy #7111, 1 capsule By Mouth Every 4 hours,PRN:as needed,Instr:not to exceed 6 capsules/da... Start Date: 01/21/20 Status: Ordered amLODIPine 2.5 mg oral tablet 2.5 mg, 1, tablet, By Mouth, Daily, # 30 tablet, Refills 5, Tot. Refills 5, Maintenance, 09/01/20 11:20:00 EST, Route to Pharmacy Electronically, [facility]/pharmacy #7111, Partial fill upon patient requestif the prescription is for a schedule II opioid tian... Start Date: 09/01/20 Status: Ordered atorvastatin 10 mg oral tablet 0.5, By Mouth, Daily, # 45 tablet, 1 Refills, Maintenance, 04/06/20 8:27:00 EDT, Tablet, [facility]/pharmacy #7111, 158, cm, 03/10/20 14:43:00 EDT, [...] 09/01/20 11:20:00 EST, Route to Pharmacy Electronically, [facility]/pharmacy #[id number], Partial fill upon patientrequest if the prescription is for a schedule II op... Start Date: 09/01/20 Status: Ordered levothyroxine 0.05 mg oral tablet 1 tablet, By Mouth, Daily, # 90 tablet, 1 Refills, Maintenance, 09/07/20 9:19:00 EST, [id number], 158, cm, 09/01/20 9:29:00 EST, Height Start Date: 09/07/20 Status: Ordered LORazepam 0.5 mg oral tablet 1 tablet = 0.5 mg, By Mouth, Daily, PRN for anxiety, # 24 tablet, 1 Refills, Maintenance, 08/09/20 10:16:00 EST, Tablet, [facility]/pharmacy #[id number], 158, cm, 08/09/20 9:40:00 EST, Height Start Date: 08/09/20 Status: Ordered losartan 100 mg oral tablet 1 tablet = 100 mg, By Mouth, Daily, # 30 tablet, 5 Refills, Maintenance, 09/01/20 11:21:00 EST, Tablet, [facility]/pharmacy #7111, Partial fill upon patient request [...] tablet, 1 Refills, Maintenance, 03/26/20 14:17:00 EDT, [facility]/pharmacy #[id number], 158, cm, 03/10/20 14:43:00 EDT, Height, 57.6, kg, 05/21/18 14:53:00 EDT, Dry Weight Start Date: 03/26/20 Stop Date: 05/25/20 Status: Ordered ProAir HFA 90 mcg/inh inhalation aerosol with adapter 2, puffs, Inhalation, 4 times a day, PRN, NEW RX PER AFAY, # 3 each, Refills 1, Tot. Refills 1, Maintenance, 07/30/19 14:51:47 EST, Aerosol, Route to Pharmacy Electronically, [id number], [facility]/pharmacy #7111 Start Date: 07/30/19 Status: Ordered [...] 12:01:00 EDT, Aerosol, Route to Pharmacy Electronically, [id number], [facility]/pharmacy #7111, 158, cm, 06/21/20 12:56:0... Start Date: 06/30/20 Status: Ordered Valtrex 500 mg oral tablet 500 mg, 1, tablet, By Mouth, Daily, # 30 tablet, Refills 11, Tot. Refills 11, Maintenance, 07/25/1811:27:07 EST, Route to Pharmacy Electronically, [id number], [facility]/pharmacy #7111 Start Date: 07/25/18 Status: Ordered [...] CT measuring 4.1 cm. 2CT scan 2015 16262; repeat 2028 4colo 2009 nl, repeat 2019 5colo 2018 6egd 2012 no barretts 7colo 2018 8Status post laparotomy with lysis of adhesions and repair of incarcerated ventral hernia. Surgery performed March 2018. 9Thyroid peroxidase antibody positive Diagnosis Diagnosis Type Effective Dates Health Status Cl inical Service Informant HTN (hypertension) Discharge Diagnosis 09/01/20 Vital Signs Most recent to oldest [Reference Range]: 1 Height 158 cm (09/01/20 9:29 AM) Mode of Delivery (Oxygen) Room air (09/01/20 9:29 AM) Social History Social History Type Response Smoking Status Former smoker; Other : quit 15 years ago; entered on: 03/16/16 Sex Female
--- OUTSIDE RECORDS SUMMARY | 2024-07-03 12:11 | XMS_ITS | Continuity of Care Document ---
Author Organization [facility] Eduardo Dawson Durga lt Address [address] [place] [address]- Care Team Providers Care Final Canoe Inspector Name Role Phone Miko Marshall MD Primary Care Physician [facility]): 06[facility]21[facility]20 - 06/28/20 [facility] Adult [address] [place] [address]- [facility] Encounter Diagnosis HTN (hypertension)(Discharge Diagnosis) - 06/21/20 Attending Physician: Miko Marshall MD Allergies, Adverse Reactions, Alerts Substance Reaction Severity Status Adhesive Bandage rash swelling Active Latex rash swelling Active Immunizations Given and Recorded Vaccine Date Status Refusal Reason Influenza Virus Vaccine (oldterm) 06/17/20 Recorde d [...] FLUARIX 4Admin Note: VIS GIVEN 5Admin Note: [facility] info given to patient 6Admin Note: GIANCARLO 7Result Comment: OOP 8Admin Note: [facility] 9Admin Note: Information sheet given 10Admin Note: given in clinic 11Admin Note: historical data Medications acetaminophen/butalbital/caffeine 325 mg-50 mg-40 mg oral capsule 1 capsule, By Mouth, Every 4 hours, PRN as needed, not to exceed 6 capsules/day, # 12 capsule, 0 Refills, Maintenance, 01/21/20 11:38:00 EDT, Capsule, [facility]/pharmacy #[id number], 1 capsule By Mouth Every 4 hours,PRN:as needed,Instr:not to exceed 6 capsules/da... Start Date: 01/21/20 Status: Ordered amLODIPine 5 mg oral tablet 5 mg, 1, tablet, By Mouth, Daily, # 90 tablet, Refills 3, Tot. Refills 3, Maintenance, 06/21/20 13:28:00 EDT, [id number], cm, 06/21/20 12:56:00 EDT, Height Start Date: 06/21/20 Status: Ordered atorvastatin 10 mg oral tablet 0.5, By Mouth, Daily, # 45 tablet, 1 Refills, Maintenance, 04/06/20 8:27:00 EDT, Tablet, [facility]/pharmacy #[id number], 158, cm, 03/10/20 14:43:00 EDT, Height, 57.6, kg, 05/21/18 14:53:00 EDT, Dry Weight Start Date: 04/06/20 Status: Ordered Centrum Silver By Mouth, Daily, 0 Refills, Maintenance, 01/11/17 14:23:47 Start Date: 01/11/17 Status: Ordered cloNIDine 0.1 mg oral tablet 0.1 mg, 1, tablet, By Mouth, 2 times a day, # 180 tablet, Refills 3, Tot. Refills 3, Maintenance, 06/21/20 13:29:00 EDT, [facility]ically, [id number], 158, cm, 06/21/20 12:56:00 EDT, Height Start Date: 06/21/20 Status: Ordered levothyroxine 0.05 mg oral tablet 1 tablet, By Mouth, Daily, # 90 tablet, 1 Refills, Maintenance, 03/13/20 20:13:00 EDT, [facility]/pharmacy#7111, 158, cm, 03/10/20 14:43:00 EDT, Height, 57.6, kg, 05/21/18 14:53:00 EDT, Dry Weight Start Date: 03/13/20 Status: Ordered LORazepam 0.5 mg oral tablet 1 tablet = 0.5 mg, By Mouth, Daily, PRN for anxiety, , # 24 tablet, 1 Refills, Maintenance, 09/12/19 13:53:00 EST, Tablet, [id number], 158, cm, 05/22/19 10:37:00 EDT, Height, 57.6, kg, 05/21/18 14:53:00 EDT, Dry Weight Start Date: 09/12/19 Status: Ordered magnesium oxide 500 mg oral tablet 1 tablet = 500 mg, By Mouth, Daily, 0 Refills, Maintenance, 06/28/18 10:06:58 EDT Start Date: 06/28/18 Status: Ordered Pepcid 20 mg oral tablet 1 tablet = 20 mg, By Mouth, 2 times a day, PRN Indigestion, # 60 tablet, 1 Refills, Maintenance, 03/26/20 14:17:00 EDT, [facility]/pharmacy #[id number], 158, cm, 03/10/20 14:43:00 EDT, Height, 57.6, kg, 05/21/18 14:53:00 EDT, Dry Weight Start Date: 03/26/20 Stop Date: 05/25/20 Status: Ordered ProAir HFA 90 mcg/inh inhalation aerosol with adapter 2, puffs, Inhalation, 4 times a day, PRN, NEW RX PER AFAY, # 3 each, Refills 1, Tot. Refills 1, Maintenance, 07/30/19 14:51:47 EST, Aerosol, Route to Pharmacy Electronically, [id number], [facility]/pharmacy #7111 Start Date: 07/30/19 Status: [...] 12:57:08 EST, Aerosol, Route to Pharmacy Electronically, [id number], [facility], 158, cm, 0... Start Date: 08/21/19 Status: Ordered Valtrex 500 mg oral tablet 500 mg, 1, tablet, By Mouth, Daily, # 30 tablet, Refills 11, Tot. Refills 11, Maintenance, 07/25/1811:27:07 EST, Route to Pharmacy Electronically, [id number], [facility]/pharmacy #7111 Start Date: 07/25/18 Status: Ordered [...] CT measuring 4.1 cm. 2CT scan 2016 00560; repeat 2028 4colo 2008 nl, repeat 2019 5colo 2019 6egd 2012 no barretts 7colo 2019 8Status post laparotomy with lysis of adhesions and repair of incarcerated ventral hernia. Surgery performed March 2018. 9Thyroid peroxidase antibody positive Diagnosis Diagnosis Type Effective Dates Health Status Cl inical Service Informant HTN (hypertension) Discharge Diagnosis 06/21/20 Vital Signs Most recent to oldest [Reference Range]: 1 Height 158 cm (06/21/20 12:56 PM) Weight 60.5 kg (06/21/20 12:56 PM) Oxygen Saturation [94-100 %] 98 % (06/21/20 12:56 PM) Pulse Rate [55-90 bpm] 41 bpm *L* (06/21/20 12:56 PM) Body Mass Index [18.5-24.99] 24.23 (06/21/20 12:56 PM) Blood Pressure [90-138/55-84 mm Hg] 145/ 103mm Hg *H* (06/21/20 12:56 PM) Mode of Delivery (Oxygen) Room air (06/21/20 12:56 PM) Blood pressure sites Arm, left (06/21/20 12:56 PM) Weight Obtained Via Standing scale (06/21/20 12:56 PM) Social History Social History Type Response Smoking Status Former smoker; Other : quit 15 years ago; entered on: 03/16/16 Sex Female
--- OUTSIDE RECORDS SUMMARY | 2024-07-03 12:11 | XMS_ITS | Continuity of Care Document ---
Author Organization [facility] Address [address] [place] [address]- Care Team Providers Care Summer Camp Counselor Name Role Phone Miko Marshall MD Primary Care Physician [phone] [facility] 03[facility]09[facility]23 - 04/08/[address] [address] Attending Physician: Paco Anderson Admitting Physician: [...] FLUARIX 4Admin Note: VIS GIVEN 5Admin Note: [facility] info given to patient 6Admin Note: [...] 1 Refills, Maintenance,05/25/22 15:32:00 EDT, [facility], 75, INHALE 2 PUFFS 4 TIMES A DAY WHEN NEEDED FOR WHEEZING, 155, cm, 04/27/22 14:46:00 EDT, Height, 52.25, kg, 0... Start Date: 05/25/22 Status: Ordered amLODIPine 10 mg oral tablet 10 mg, 1, tablet, By Mouth, Daily, # 90 tablet, Refills 3, Tot. Refills 3, Maintenance, 11/22/22 16:38:00 EST, Route to Pharmacy Electronically, [facility]/pharmacy #[id number], Partial fill upon patient request [...] 45 tablet, 3 Refills, 04/10/22 13:41:00 EDT, [facility]/pharmacy #7111, 155, cm, 04/10/22 13:29:00 EDT, Height Start Date: 04/10/22 Status: Ordered budesonide-formoterol 160 mcg-4.5 mcg/inh inhalation aerosol with adapter 2, puffs, Inhalation, 2 times a day, # 30.6 each, Refills 1, Maintenance, 02/23/23 8:46:00 EDT, Route to Pharmacy Electronically, [id number], [facility], 155, cm, 02/21/23 10:28:00 EDT, Height, 52.25, [...] Refills, Maintenance, 12/28/22 7:50:00 EDT, [facility], 155, cm, 10/16/22 12:48:00 EST, Height, 52.25, kg, 04/27/22 14:46:00 EDT, Dry Weight Start Date: 12/28/22 Status: Ordered levothyroxine 0.05 mg oral tablet 1 tablet, By Mouth, Daily, # 90 tablet, 1 Refills, Maintenance, 03/06/23 15:55:00 EDT, [facility], 155, cm, 02/21/23 10:28:00 EDT, Height, 52.25, kg, 04/27/22 14:46:00 EDT, Dry Weight Start Date: 03/06/23 Status: Ordered LORazepam 0.5 mg oral tablet 1 tablet = 0.5 mg, By Mouth, Daily, PRN for anxiety, # 24 tablet, 1 Refills, Maintenance, 10/18/22 10:48:00 EST, Tablet, [facility]/pharmacy #7111, 155, cm, 10/16/22 12:48:00 EST, Height, 52.25, kg, 04/27/22 14:46:00 EDT, Dry Weight Start Date: 10/18/22 Status: Ordered losartan 100 mg oral tablet 1 tablet, By Mouth, Daily, # 90 tablet, 3 Refills, Maintenance, 11/22/22 16:38:00 EST, [facility]/pharmacy#7111, 155, cm, 10/16/22 12:48:00 EST, Height, 52.25, kg, 04/27/22 14:46:00 EDT, Dry Weight Start Date: 11/22/22 Status: Ordered magnesium oxide 500 mg oral tablet 1 tablet = 500 mg, By Mouth, Daily, 0 Refills, Maintenance, 06/28/18 10:06:58 EDT Start Date: 06/28/18 Status: Ordered Spiriva HandiHaler 18 mcg inhalation capsule 1 capsule, Inhalation, Daily, # 90 capsule, 1 Refills, Maintenance, 03/21/23 12:14:00 EDT, [facility], 155, cm, 02/21/23 10:28:00 EDT, Height, 52.25, kg, 04/27/22 14:46:00 EDT,Dry Weight Start Date: 03/21/23 Status: Ordered valACYclovir 500 mg oral tablet 1, tablet, By Mouth, Daily, # 30 tablet, Refills 11, Maintenance, 12/22/22 9:50:00 EDT, Route to Pharmacy Electronically, [facility], 155, cm, 10/16/22 12:48:00 EST, Height, 52.25, [...] CT measuring 4.1 cm. 2CT scan 2016 46987; repeat 2028 4colo 2008 nl, repeat 2018 [...] Display: Device Check Office Visit Authored Date: [id number] Patient Care team information Care Team Personnel Name: Vanessa BAH, Maria G Position: [facility] RN Member Role: Primary Care Nurse Name: Barby Frias Position: [facility] Outreach Member Role: Lifetime Consulting Physician Name: Miko Marshall MD Position: [facility] Physician - Primary Care Member Role: PCP Address: Address: [address] [place] [address]- Name: Zachary Biswas MD Position: [facility] Renal MD Member Role: Lifetime Consulting Physician Address: Address: [address] [place] [address] [address] [facility] [place] [address]- Name: Moises BAH, Sridhar Position: [facility] RN Member Role: Primary Care Nurse Care Team Related Persons Name: MU CONTRERAS Address: [place] [address] Name: SHANELL COBIAN Address: [address] [address]
--- OUTSIDE RECORDS SUMMARY | 2024-07-03 12:11 | XMS_ITS | Continuity of Care Document ---
Author Organization [facility] Eduardo Dawson Durga Address [address] [place] [id number]- Care Team Providers Care Bar Welder Name Role Phone Miko Farerll MD Primary Care Physician [phone] [place] [facility] [place]): [place]19 [place] 12/18/19 [facility] Eduardo Dawson Adult [address] [place] [address]- [facility] Encounter Diagnosis Cough(Discharge Diagnosis) - 12/11/19 Attending Physician: Oralia PAPER PATTERN INSPECTOR, Radha Allergies, Adverse Reactions, Alerts Substance Reaction Severity [...] FLUARIX 4Admin Note: VIS GIVEN 5[facility]: [facility] given to [facility] 6Admin Note: GIANCARLO 7Result Comment: OOP 8Admin Note: [facility] 9Admin Note: Information sheet given 10Admin Note: given in clinic 11Admin Note: historical data Medications Acapella valve Acapella valve, See Instructions, # 1 each, Refills 0, Tot. Refills 0, Maintenance, Use as needed for mucus, 12/09/19 10:05:00 EDT, Supply, Dry Weight Start Date: 12/09/19 Status: Ordered atorvastatin 10 mg oral tablet 0.5, By Mouth, Daily, # 45 tablet, 1 Refills, Maintenance, 10/14/19 10:36:00 EST, [facility]t, [id number], 158, cm, 05/22/19 10:37:00 EDT, Height, [...] 1 Refills, Maintenance, 09/12/19 13:53:00 EST, Tablet, [facility], 158, cm, 05/22/19 10:37:00 EDT, Height, 57.6, kg, 05/21/18 14:53:00 EDT, Dry Weight Start Date: 09/12/19 Status: Ordered losartan 100 mg oral tablet 1 tablet = 100 mg, By Mouth, Daily, please make OV within next 1-2 months for further refills., # 30 tablet, 1 Refills, Maintenance, 11/12/19 16:41:00 EST, Tablet, [facility]/pharmacy #7111, 158, cm, 05/22/19 10:37:00 EDT, Height, [...] 14:51:47 EST, Aerosol, Route to Pharmacy Electronically, [id number], [facility]pharmacy #7111 Start Date: 07/30/19 Status: Ordered Protonix [...] Refills, Soft Stop, 10/17/19 11:04:00 EST, Powder, [facility]/pharmacy #7111, 0.5 mL Intramuscular Once,Instr:repeat dose in [...] 12:57:08 EST, Aerosol, Route to Pharmacy Electronically, [id number], [facility], 158, cm, 0... Start Date: 08/21/19 [...] Maintenance, 07/25/1811:27:07 EST, Route to Pharmacy Electronically, [id number], [facility]/pharmacy #7111 Start Date: 07/25/18 Status: Ordered Problem [...] Diagnosis Diagnosis Type Effective Dates Health Status Clini edlilah Service Informant Cough Discharge Diagnosis 12/11/19 Social History Social History Type Response Smoking Status Former smoker; Other : quit 15 years ago; entered on: 03/16/16 Sex
--- OUTSIDE RECORDS SUMMARY | 2024-07-03 12:12 | XMS_ITS | Continuity of Care Document ---
Author Organization [facility] Address [address] [place] [address]- Care Team Providers Care Consolidation Accountant Name Role Phone Joanna VO, Miko Guillen Primary Care Physician [phone] [place] [facility] [place] 05[place]04[place]22 - 08/13/22 [facility] [address] [place] [address]- Attending Physician: Jeffry Paulson MD Admitting Physician: Jeffry Paulson MD Referring Physician: Miko Marshall MD Allergies, [...] FLUARIX 4Admin Note: VIS GIVEN 5Admin Note: [facility] info given to patient 6Admin [...] 1 Refills, Maintenance,05/25/22 15:32:00 EDT, [facility], 75, INHALE 2 PUFFS 4 TIMES A DAY WHEN NEEDED FOR WHEEZING, 155, cm, 04/27/22 14:46:00 EDT, Height, 52.25, kg, 0... Start Date: 05/25/22 Status: Ordered amLODIPine 10 mg oral tablet 10 mg, 1, tablet, By Mouth, Daily, # 90 tablet, Refills 3, Tot. Refills 3, Maintenance, 09/02/21 9:38:00 EST, Route to Pharmacy Electronically, [facility]/pharmacy #7111, Partial fill upon patient request if the prescription is for a schedule II opioid drug.... Start Date: 09/02/21 Status: Ordered atorvastatin 10 mg oral tablet 0.5 tablet, By Mouth, Daily, # 45 tablet, 3 Refills, 04/10/22 13:41:00 EDT, [facility], 155, cm, 04/10/22 13:29:00 EDT, Height Start Date: 04/10/22 Status: Ordered budesonide-formoterol 160 mcg-4.5 mcg/inh inhalation aerosol with adapter 2, puffs, Inhalation, 2 times a day, # 30.6 each, Refills 1, Tot. Refills 1, 07/17/22 13:30:00 EDT,Route to Pharmacy Electronically, [id number], [facility]/pharmacy #7111, 155, cm, 06/12/22 14:03:00 EDT, Height, 52.25, kg, 04/27/22... Start Date: 07/17/22 Status: Ordered Centrum Silver By Mouth, Daily, 0 Refills, Maintenance, 01/11/17 14:23:47 Start Date: 01/11/17 Status: Ordered cloNIDine 0.1 mg oral tablet 0.1 mg, 1, tablet, By Mouth, 2 times a day, # 180 tablet, Refills 3, Tot. Refills 3, Maintenance, 09/02/21 9:38:00 EST, Route to Pharmacy Electronically, [facility]/pharmacy #7111, Partial fill upon patientrequest if the prescription is for a schedule II op... Start Date: 09/02/21 Status: Ordered hydroCHLOROthiazide 12.5 mg oral capsule 1 capsule = 12.5 mg, By Mouth, Daily, # 90 capsule, 3 Refills, Maintenance, 10/19/21 11:02:00 EST, Capsule, [facility]/pharmacy #7111, Partial fill upon patient request if the prescription is for a scheduleII opioid drug., 155, cm, 10/05/21 13:33:00 EST, He... Start Date: 10/19/21 Status: Ordered levothyroxine 0.05 mg oral tablet See Instructions, TAKE 1 TABLET BY MOUTH EVERY DAY, # 90 tablet, 3 Refills, [facility], 155, cm, 04/10/22 13:29:00 EDT, Height Start Date: 04/10/22 Status: Ordered LORazepam 0.5 mg oral tablet 1 tablet = 0.5 mg, By Mouth, Daily, PRN for anxiety, # 24 tablet, 1 Refills, Maintenance, 09/02/21 9:33:00 EST, Tablet, [facility]/pharmacy #7111, 155, cm, 09/02/21 8:06:00 EST, Height Start Date: 09/02/21 Status: Ordered losartan 100 mg oral tablet 1 tablet, By Mouth, Daily, # 90 tablet, 1 Refills, [facility], 155, cm, 11/14/21 13:39:00 EST,Height Start Date: [...] capsule, 1 Refills, Maintenance, 05/18/22 12:36:00 EDT, [facility] Rx resent to [facility] as pt requested, 155, cm, 04/27/22 14:46:00 EDT, Height, 52.25, kg, 04/27/22 14:46:00 EDT, Dry Weight Start Date: 05/18/22 Status: Ordered tiZANidine 2 mg oral capsule 1 capsule = 2 mg, By Mouth, Every 8 hours, # 42 capsule, 0 Refills, Maintenance, 03/10/22 13:48:00 EDT, [facility]/pharmacy #7111, Partial fill upon patient request if the prescription is for a schedule II opioid drug., 155, cm, 03/10/22 13:27:00 EDT, Height Start Date: 03/10/22 Stop Date: 03/24/22 Status: Ordered valACYclovir 500 mg oral tablet 1, tablet, By Mouth, Daily, # 30 tablet, Refills 11, Route to Pharmacy Electronically, [facility], 155, cm, 10/05/21 13:33:00 EST, Height Start [...] CT measuring 4.1 cm. 2CT scan 2015 44092; repeat 2028 4colo 2008 nl, repeat 2019 [...] Personnel Name: Maria G Mendez RN Position: [facility] RN Member Role: Primary Care Nurse Name: Barby Frias Position: [facility] Outreach Member Role: Lifetime Consulting Physician Name: Miko Marshall MD Position: [facility] Primary Care Physician Member Role: PCP Address: Address: [address] [place] [address]- Name: Sridhar De Leon RN Position: [facility] RN Member Role: Primary Care Nurse Care Team Related Persons Name: MU CONTRERAS Address: [place] [address] Name: SHANELL COBIAN Address: [address] [address]
--- OUTSIDE RECORDS SUMMARY | 2024-07-03 12:12 | XMS_ITS | Continuity of Care Document ---
Author Organization [facility] Eduardo Dawson Durga lt Address [address] [place] [address]- Care Team Providers Care Group Insurance Specialist Name Role Phone Joanna VO, Miko Guillen Primary Care Physician [phone] Encounter [facility] Date(s): 07/22/20 - 08/25/20 [facility] Adult [address] [place] [address]- Attending Physician: Brenda Jackson NP Referring Physician: [...] 0 Refills, Maintenance, 01/21/20 11:38:00 EDT, Capsule, [facility]/pharmacy #7111, 1 capsule By Mouth Every 4 hours,PRN:as needed,Instr:not to exceed 6 capsules/da... Start Date: 01/21/20 Status: Ordered amLODIPine 5 mg oral tablet 5 mg, 1, tablet, By Mouth, Daily, # 90 tablet, Refills 3, Tot. Refills 3, Maintenance, 06/21/20 13:28:00 EDT, Route to Pharmacy Electronically, [facility]/pharmacy #7111, 158, cm, 06/21/20 12:56:00 EDT, Height Start Date: 06/21/20 Status: Ordered atorvastatin 10 mg oral tablet 0.5, By Mouth, Daily, # 45 tablet, 1 Refills, Maintenance, 04/06/20 8:27:00 EDT, Tablet, [facility]/pharmacy #7111, 158, cm, 03/10/20 14:43:00 EDT, Height, 57.6, kg, 05/21/18 14:53:00 EDT, Dry Weight Start Date: 04/06/20 Status: Ordered Centrum Silver By Mouth, Daily, 0 Refills, Maintenance, 01/11/17 14:23:47 Start Date: 01/11/17 Status: Ordered cloNIDine 0.2 mg oral tablet 0.2 mg, 1, tablet, By Mouth, 2 times a day, # 180 tablet, Refills 3, Tot. Refills 3, Maintenance, 07/08/20 10:01:00 EDT, [facility], cm, 07/08/20 9:36:00 EDT, Height Start Date: 07/08/20 Status: Ordered levothyroxine 0.05 mg oral tablet 1 tablet, By Mouth, Daily, # 90 tablet, 1 Refills, Maintenance, 03/13/20 20:13:00 EDT, [facility]/pharmacy#7111, 158, cm, 03/10/20 14:43:00 EDT, Height, 57.6, kg, 05/21/18 14:53:00 EDT, Dry Weight Start Date: 03/13/20 Status: Ordered LORazepam 0.5 mg oral tablet 1 tablet = 0.5 mg, By Mouth, Daily, PRN for anxiety, # 24 tablet, 1 Refills, Maintenance, 08/09/20 10:16:00 EST, Tablet[facility], cm, 08/09/20 9:40:00 EST, Height Start Date: 08/09/20 Status: Ordered magnesium oxide 500 mg oral [...] tablet, 1 Refills, Maintenance, 03/26/20 14:17:00 EDT, [facility]/pharmacy #7111, 158, cm, 03/10/20 14:43:00 EDT, Height, 57.6, kg, 05/21/18 14:53:00 EDT, Dry Weight Start Date: 03/26/20 Stop Date: 05/25/20 Status: Ordered ProAir HFA 90 mcg/inh inhalation aerosol with adapter 2, puffs, Inhalation, 4 times a day, PRN, NEW RX PER AFAY, # 3 each, Refills 1, Tot. Refills 1, Maintenance, 07/30/19 14:51:47 EST, Aerosol, Route to Pharmacy Electronically, [id number], [facility]/pharmacy #7111 Start Date: 07/30/19 Status: Ordered [...] 12:01:00 EDT, Aerosol, Route to Pharmacy Electronically, [id number], [facility]/pharmacy #7111, 158, cm, 06/21/20 12:56:0... Start Date: 06/30/20 Status: Ordered Valtrex 500 mg oral tablet 500 mg, 1, tablet, By Mouth, Daily, # 30 tablet, Refills 11, Tot. Refills 11, Maintenance, 07/25/1811:27:07 EST, Route to Pharmacy Electronically, [id number], [facility]/pharmacy #7111 Start Date: 07/25/18 Status: Ordered [...] cm. 2CT scan 201519; repeat 2028 4colo 2009 nl, repeat 2019 [...]
--- OUTSIDE RECORDS SUMMARY | 2024-07-03 12:12 | XMS_ITS | Continuity of Care Document ---
Author Organization [facility] Eduardo Dawson Durga lt Address [address] [place] [address]- Care Team Providers Care Extrusion Die Repair Manager Name Role Phone Miko Marshall MD Primary Care Physician Encounter [facility] Date(s): 08/29/23 - 09/28/23 [facility] Adult [address] [place] [address]- Allergies, Adverse Reactions, Alerts Substance Reaction Severity [...] (oldterm) 10 06/24/08 Give n 1Result Comment: [facility]: [id number] [facility] 3Result Comment: [06/23/2016] HIGH DOSE 4Admin Note: [facility] 5Admin Note: VIS GIVEN 6Admin Note: [facility] info given to patient 7Admin Note: [...] 1 Refills, Maintenance,05/25/22 15:32:00 EDT, [facility], 75, INHALE 2 PUFFS 4 TIMES A DAY WHEN NEEDED FOR WHEEZING, 155, cm, 04/27/22 14:46:00 EDT, Height, 52.25, kg, 0... Start Date: 05/25/22 Status: Ordered amLODIPine 10 mg oral tablet 10 mg, 1, tablet, By Mouth, Daily, # 90 tablet, Refills 3, Tot. Refills 3, Maintenance, 11/22/22 16:38:00 EST, [facility] fill upon patient request [...] 6 Refills, Maintenance, 06/29/23 15:09:00 EDT, [facility]/pharmacy #7111, 155, cm, 06/29/23 14:50:00 EDT, Height, 52.25, kg, 04/27/22 14:46:00 EDT, Dry Weight Start Date: 06/29/23 Status: Ordered budesonide-formoterol 160 mcg-4.5 mcg/inh inhalation aerosol with adapter 2, puffs, Inhalation, 2 times a day, # 30.6 each, Refills 1, Maintenance, 08/29/23 5:44:00 EST, Route to Pharmacy Electronically, [id number], [facility] 139[facility], 155, cm, 08/27/23 8:53:00 EST, Height, 52.25, [...] 09/28/23 13:34:00 EST, Route to Pharmacy Electronically, [facility]/pharmacy #7111, Partial fill upon patient request if the prescription is for a schedule II o... Start Date: 09/28/23 Stop Date: 09/22/24 Status: Ordered fluticasone 50 mcg/inh nasal spray 1 sprays, Nares, Both, 2 times a day, # 16 Gm, 11 Refills, Maintenance, 06/29/23 15:10:00 EDT, [place], [facility]/pharmacy #7111, Partial fill upon patient request if the prescription is for a scheduleII opioid drug., 1 sprays Nares, Both 2 times a day... Start Date: 06/29/23 Status: Ordered hydroCHLOROthiazide 12.5 mg oral capsule 1 capsule, By Mouth, Daily, # 90 capsule, 3 Refills, Maintenance, 12/28/22 7:50:00 EDT, [facility], 155, cm, 10/16/22 12:48:00 EST, Height, 52.25, kg, 04/27/22 14:46:00 EDT, Dry Weight Start Date: 12/28/22 Status: Ordered levothyroxine 0.05 mg oral tablet 1 tablet, By Mouth, Daily, # 90 tablet, 0 Refills, Maintenance, 08/29/23 5:44:00 EST, [facility], 155, cm, 08/27/23 8:53:00 EST, Height, 52.25, kg, 04/27/22 14:46:00 EDT, Dry Weight Start Date: 08/29/23 Status: Ordered LORazepam 0.5 mg oral tablet 1 tablet = 0.5 mg, By Mouth, Daily, PRN for anxiety, # 24 tablet, 1 Refills, Maintenance, 10/18/22 10:48:00 EST, Tablet, [facility]/pharm[facility] #7111, 155, cm, 10/16/22 12:48:00 EST, Height, 52.25, kg, 04/27/22 14:46:00 EDT, Dry Weight Start Date: 10/18/22 Status: Ordered losartan 100 mg oral tablet 1 tablet, By Mouth, Daily, # 90 tablet, 3 Refills, Maintenance, 11/22/22 16:38:00 EST, [facility]/pharm[facility]7111, 155, cm, 10/16/22 12:48:00 EST, Height, 52.25, kg, 04/27/22 14:46:00 EDT, Dry Weight Start Date: 11/22/22 Status: Ordered magnesium oxide 500 mg oral tablet 1 tablet = 500 mg, By Mouth, Daily, 0 Refills, Maintenance, 06/28/18 10:06:58 EDT Start Date: 06/28/18 Status: Ordered Spiriva HandiHaler 18 mcg inhalation capsule 1 capsule, Inhalation, Daily, # 90 capsule, 1 Refills, Maintenance, 09/11/23 10:37:00 EST, [facility]/pharm[facility] #7111, 155, cm, 08/27/23 8:53:00 EST, Height, 52.25, kg, 04/27/22 14:46:00 EDT, Dry Weight Start Date: 09/11/23 Status: Ordered valACYclovir 500 mg oral tablet 1, tablet, By Mouth, Daily, # 30 tablet, Refills 11, Maintenance, 12/22/22 9:50:00 EDT, Route to Pharmacy Electronically, [facility], 155, cm, 10/16/22 12:48:00 EST, Height, 52.25, [...] CT measuring 4.1 cm. 2CT scan 2016 31281; repeat 2028 4colo 2009 nl, repeat 2019 [...] Personnel Name: Vanessa BAH, Maria G Position: S RN Member Role: Primary Care Nurse Name: Barby Frisa Position: [facility] Outreach Member Role: Lifetime Consulting Physician Name: Miko Marshall MD Position: [facility] Physician - Primary Care Member Role: PCP Address: Address: [address] [place] [address]- Name: Zachary Biswas MD Position: [facility] Renal MD Member Role: Lifetime Consulting Physician Address: Address: [address] [place] [address] [address] [facility] [place] [address]- Name: Moises BAH, Sridhar Position: [facility] RN Member Role: Primary Care Nurse Care Team Related Persons Name: MU CONTRERAS Address: [place] [address] Name: SHANELL COBIAN Address: [address] [address]
--- OUTSIDE RECORDS SUMMARY | 2024-07-03 12:12 | XMS_ITS | Continuity of Care Document ---
Author Organization [facility] Address [address] [address]- Care Team Providers Care Boiler Coverer Name Role Phone Joanna VO, Miko Guillen Primary Care Physician [phone] Encounter [facility] [place] Date(s): 01/01/20 - 01/08/20 [facility] [address] [place] [address]- [facility] Encounter Diagnosis COPD (chronic obstructive pulmonary disease)(Discharge Diagnosis) - 01/01/20 Attending Physician: Kumar Ivey MD Admitting Physician: Nuvia Dick MD Allergies, Adverse Reactions, Alerts Substance Reaction [...] Pneumococcal Vaccine (oldterm) 09/17/03 Given Zostavax (oldterm) 12/2/09 Given Influenza Inactive (IM) (oldterm) 05/26/09 Given [...] 1 Refills, Maintenance, 10/14/19 10:36:00 EST, Tablet, [facility]/pharmacy #7111, 158, cm, 05/22/19 10:37:00 EDT, [...] capsule, 0 Refills, Maintenance, 12/23/19 8:38:00 EDT, [facility]/pharmacy #7111, 1 capsule By Mouth Daily,Instr:Please call to schedule a follow up office visit., 158, cm, 0... Start Date: 12/23/19 Status: Ordered levothyroxine 0.05 mg oral tablet 1 tablet, By Mouth, Daily, # 90 tablet, 0 Refills, Maintenance, 12/19/19 9:09:00 EDT, [facility] STORE 240[facility], 158, cm, 05/22/19 10:37:00 EDT, Height, 57.6, kg, 05/21/18 14:53:00 EDT, Dry Weight Start Date: 12/19/19 Status: Ordered LORazepam 0.5 mg oral tablet 1 tablet = 0.5 mg, By Mouth, Daily, PRN for anxiety, , # 24 tablet, 1 Refills, Maintenance, 09/12/19 13:53:00 EST, Tablet, [facility]/pharmacy #7111, 158, cm, 05/22/19 10:37:00 EDT, Height, 57.6, kg, 05/21/18 14:53:00 EDT, Dry Weight Start Date: 09/12/19 Status: Ordered losartan 100 mg oral tablet 1 tablet = 100 mg, By Mouth, Daily, please make OV within next 1-2 months for further refills., # 30 tablet, 1 Refills, Maintenance, 11/12/19 16:41:00 EST, Tablet, [facility]/pharmacy #7111, 158, cm, 05/22/19 10:37:00 EDT, [...] 14:51:47 EST, Aerosol, Route to Pharmacy Electronically, [id number][facility] Start Date: 07/30/19 Status: Ordered Spiriva [...] 12:57:08 EST, Aerosol, Route to Pharmacy Electronically, [id number], [facility], 158, cm, 0... Start Date: [...] Maintenance, 07/25/1811:27:07 EST, Route to Pharmacy Electronically, [id number], [facility]/pharmacy #7111 Start Date: 07/25/18 Status: Ordered [...] 2028 3colo 2008 nl, repeat 2019 4colo 2019 5egd 2012 no barretts 6colo 2019 7Status post laparotomy with lysis of adhesions and repair of incarcerated ventral hernia. Surgery performed March 2018. 8Thyroid peroxidase antibody positive Diagnosis Diagnosis Type Effective Dates Health Status Clinical Service Informant COPD (chronic obstructive pulmonary disease) Discharge Diagnosis 01/01/20 Vital Signs Most recent to oldest [Reference Range]: 1 Height 158 cm (01/01/20 10:50 AM) Weight 55.90 kg (01/01/20 10:50 AM) Body Mass Index [18.5-24.99] 22.39 (01/01/20 10:50 AM) Weight Obtained Via Patient/family state d (01/01/20 10:50 AM) Social History Social History Type Response Smoking Status Former smoker; Other : quit 15 years ago; entered on: 03/16/16 Sex
--- OUTSIDE RECORDS SUMMARY | 2024-07-03 12:12 | XMS_ITS | Continuity of Care Document ---
Author Organization [facility] Address [address] [place] [address]- Care Team Providers Care Retail Key Holder Name Role Phone Miko Farrell MD Primary Care Physician [facility]counter [facility] Date(s): 01/01/20 - 01/11/20 [facility] [address] [place] [address]- [facility] Attending Physician: Admмарина, Paco Admitting Physician: AdmtrPaco Referring Physician: Admtr, Ar8 Allergies, Adverse Reactions, [...] CDC info given to patient 6Admin Note: [facility] 7Result Comment: OOP 8Admin Note: [facility] 9Admin Note: Information sheet given 10Admin Note: given in clinic 11Admin Note: historical data Medications atorvastatin 10 mg oral tablet 0.5, By Mouth, Daily, # 45 tablet, 1 Refills, Maintenance, 10/14/19 10:36:00 EST, Tablet, [facility]/pharmacy #7111, 158, cm, 05/22/19 10:37:00 EDT, [...] capsule, 0 Refills, Maintenance, 12/23/19 8:38:00 EDT, [facility]/pharmacy #7111, 1 capsule By Mouth Daily,Instr:Please call to schedule a follow up office visit., 158, cm, 0... Start Date: 12/23/19 Status: Ordered levothyroxine 0.05 mg oral tablet 1 tablet, By Mouth, Daily, # 90 tablet, 0 Refills, Maintenance, 12/19/19 9:09:00 EDT, [facility], 158, cm, 05/22/19 10:37:00 EDT, Height, 57.6, kg, 05/21/18 14:53:00 EDT, Dry Weight Start Date: 12/19/19 Status: Ordered LORazepam 0.5 mg oral tablet 1 tablet = 0.5 mg, By Mouth, Daily, PRN for anxiety, , # 24 tablet, 1 Refills, Maintenance, 09/12/19 13:53:00 EST, Tablet, [facility]/pharmacy #7111, 158, cm, 05/22/19 10:37:00 EDT, Height, 57.6, kg, 05/21/18 14:53:00 EDT, Dry Weight Start Date: 09/12/19 Status: Ordered losartan 100 mg oral tablet 1 tablet = 100 mg, By Mouth, Daily, please make OV within next 1-2 months for further refills., # 30 tablet, 1 Refills, Maintenance, 11/12/19 16:41:00 EST, Tablet, [facility]/pharmacy #7111, 158, cm, 05/22/19 10:37:00 EDT, [...] 14:51:47 EST, Aerosol, Route to Pharmacy Electronically, [id number], [facility] Start Date: 07/30/19 Status: Ordered Spiriva [...] 12:57:08 EST, Aerosol, Route to Pharmacy Electronically, [id number], [facility], 158, cm, 0... Start Date: [...] Maintenance, 07/25/1811:27:07 EST, Route to Pharmacy Electronically, [id number], [facility]/pharmacy #7111 Start Date: 07/25/18 Status: [...]
--- OUTSIDE RECORDS SUMMARY | 2024-07-03 12:12 | XMS_ITS | Continuity of Care Document ---
Author Organization [facility] Eduardo Dawson Durga lt Address [address] [place] [address]- Care Team Providers Care Agriculture Scientist Name Role Phone Miko Marshall MD Primary Care Phys[facility] - 05/20/22 [facility] Adult [address] [place] [address]- Allergies, Adverse Reactions, Alerts Substance Reaction Severity [...] n 1Admin Note: historical data 2Location History: [facility] 3Result Comment: [06/23/2016] HIGH DOSE 4Admin Note: FLUARIX 5Admin Note: VIS GIVEN 6Admin Note: [facility] info given to patient 7Admin Note: [...] 09/02/21 9:38:00 EST, Route to Pharmacy Electronically, [facility]/pharmacy #[id number], Partial fill upon patient request if the prescription is for a schedule II opioid drug.... Start Date: 09/02/21 Status: Ordered atorvastatin 10 mg oral tablet 0.5 tablet, By Mouth, Daily, # 45 tablet, 3 Refills, 04/10/22 13:41:00 EDT, [facility]/pharmacy #[id number], 155, cm, 04/10/22 13:29:00 EDT, Height Start Date: 04/10/22 Status: Ordered budesonide-formoterol 160 mcg-4.5 mcg/inh inhalation aerosol with adapter 2, puffs, Inhalation, 2 times a day, # 30.6 each, Refills 1, Route to Pharmacy Electronically, [id number], [facility], 155, cm, 05/16/21 12:39:00 EDT, Height Start Date: 06/25/21 Status: Ordered Centrum Silver By Mouth, Daily, 0 Refills, Maintenance, 01/11/17 14:23:47 Start Date: 01/11/17 Status: Ordered cloNIDine 0.1 mg oral tablet 0.1 mg, 1, tablet, By Mouth, 2 times a day, # 180 tablet, Refills 3, Tot. Refills 3, Maintenance, 09/02/21 9:38:00 EST, Route to Pharmacy Electronically, [facility]/pharmacy #[id number], Partial fill upon patientrequest if the prescription is for a schedule II op... Start Date: 09/02/21 Status: Ordered hydroCHLOROthiazide 12.5 mg oral capsule 1 capsule = 12.5 mg, By Mouth, Daily, # 90 capsule, 3 Refills, Maintenance, 10/19/21 11:02:00 EST, Capsule, [facility]/pharmacy #[id number], Partial fill upon patient request if the prescription is for a scheduleII opioid drug., 155, cm, 10/05/21 13:33:00 EST, He... Start Date: 10/19/21 Status: Ordered levothyroxine 0.05 mg oral tablet See Instructions, TAKE 1 TABLET BY MOUTH EVERY DAY, # 90 tablet, 3 Refills, [facility], 155, cm, 04/10/22 13:29:00 EDT, Height Start Date: 04/10/22 Status: Ordered LORazepam 0.5 mg oral tablet 1 tablet = 0.5 mg, By Mouth, Daily, PRN for anxiety, # 24 tablet, 1 Refills, Maintenance, 09/02/21 9:33:00 EST, Tablet, [facility]/pharmacy #[id number], 155, cm, 09/02/21 8:06:00 EST, Height Start Date: 09/02/21 Status: Ordered losartan 100 mg oral tablet 1 tablet, By Mouth, Daily, # 90 tablet, 1 Refills, [facility], 155, cm, 11/14/21 13:39:00 EST,Height Start Date: [...] 7:30:00 EST, Aerosol, Route to Pharmacy Electronically, [id number], [facility]/pharmacy #[id number], 158, cm, 09/30/20 1... Start Date: 11/22/20 Stop Date: 01/21/21 Status: Ordered Spiriva HandiHaler 18 mcg inhalation capsule 1 capsule, Inhalation, Daily, # 90 capsule, 1 Refills, Maintenance, 05/18/22 12:36:00 EDT, [facility] Rx resent to [facility] as pt requested, 155, cm, 04/27/22 14:46:00 EDT, Height, 52.25, kg, 04/27/22 14:46:00 EDT, Dry Weight Start Date: 05/18/22 Status: Ordered tiZANidine 2 mg oral capsule 1 capsule = 2 mg, By Mouth, Every 8 hours, # 42 capsule, 0 Refills, Maintenance, 03/10/22 13:48:00 EDT, [facility]/pharmacy #[id number], Partial fill upon patient request if the prescription is for a schedule II opioid drug., 155, cm, 03/10/22 13:27:00 EDT, Height Start Date: 03/10/22 Stop Date: 03/24/22 Status: Ordered valACYclovir 500 mg oral tablet 1, tablet, By Mouth, Daily, # 30 tablet, Refills 11, Route to Pharmacy Electronically, [facility], 155, cm, 10/05/21 13:33:00 EST, Height Start [...] CT measuring 4.1 cm. 2CT scan 2015 54328; repeat 2028 4colo 2009 nl, repeat 2019 5Problem added by Discern Expert 6colo 2019 7egd 2012 no barretts 8colo 2018 9Status post laparotomy with lysis of adhesions and repair of incarcerated ventral hernia. Surgery performed March 2018. 10Thyroid peroxidase antibody positive Social History Social History Type Response Smoking Status Former smoker; Other : quit 15 years ago; entered on: 03/16/16 Sex Female Care Team Personnel Name: Joanna VO, Miko Guillen Address: [address] [place] [address]-
--- OUTSIDE RECORDS SUMMARY | 2024-07-03 12:12 | XMS_ITS | Continuity of Care Document ---
Author Organization [facility] Eduardo Dawson Durga lt Address [address] [place] [address]- Care Team Providers Care Phlebotomy Technologist Name Role Phone Miko Marshall MD Primary Care Physician [facility]): 05[facility]20 - 07/04/20 [facility] Adult [address] [place] [address]- [facility] Attending Physician: Not on Staff, Attending MD Allergies, Adverse Reactions, Alerts Substance Reaction [...] FLUARIX 4Admin Note: VIS GIVEN 5Admin Note: [facility] info given to patient 6Admin Note: GIANCARLO 7Result Comment: OOP 8Admin Note: [facility] 9Admin Note: Information sheet given 10Admin Note: given in clinic 11Admin Note: historical data Medications acetaminophen/butalbital/caffeine 325 mg-50 mg-40 mg oral capsule 1 capsule, By Mouth, Every 4 hours, PRN as needed, not to exceed 6 capsules/day, # 12 capsule, 0 Refills, Maintenance, 01/21/20 11:38:00 EDT, Capsule, [facility]/pharmacy #[id number], 1 capsule By Mouth Every 4 hours,PRN:as needed,Instr:not to exceed 6 capsules/da... Start Date: 01/21/20 Status: Ordered amLODIPine 5 mg oral tablet 5 mg, 1, tablet, By Mouth, Daily, # 90 tablet, Refills 3, Tot. Refills 3, Maintenance, 06/21/20 13:28:00 EDT, Route to Pharmacy Electronically, [facility]/pharmacy #[id number], 158, cm, 06/21/20 12:56:00 EDT, Height Start Date: 06/21/20 Status: Ordered atorvastatin 10 mg oral tablet 0.5, By Mouth, Daily, # 45 tablet, 1 Refills, Maintenance, 04/06/20 8:27:00 EDT, Tablet, [facility]/pharmacy #[id number], 158, cm, 03/10/20 14:43:00 EDT, [...] 13:29:00 EDT, [id number], 158, cm, 06/21/20 12:56:00 EDT, Height Start Date: 06/21/20 Status: Ordered levothyroxine 0.05 mg oral tablet 1 tablet, By Mouth, Daily, # 90 tablet, 1 Refills, Maintenance, 03/13/20 20:13:00 EDT, [facility]/pharmacy#7111, 158, cm, 03/10/20 14:43:00 EDT, Height, 57.6, kg, 05/21/18 14:53:00 EDT, Dry Weight Start Date: 03/13/20 Status: Ordered LORazepam 0.5 mg oral tablet 1 tablet = 0.5 mg, By Mouth, Daily, PRN for anxiety, , # 24 tablet, 1 Refills, Maintenance, 09/12/19 13:53:00 EST, Tablet, [id number], 158, cm, 05/22/19 10:37:00 EDT, Height, [...] tablet, 1 Refills, Maintenance, 03/26/20 14:17:00 EDT, [id number], 158, cm, 03/10/20 14:43:00 EDT, Height, 57.6, kg, 05/21/18 14:53:00 EDT, Dry Weight Start Date: 03/26/20 Stop Date: 05/25/20 Status: Ordered ProAir HFA 90 mcg/inh inhalation aerosol with adapter 2, puffs, Inhalation, 4 times a day, PRN, NEW RX PER AFAY, # 3 each, Refills 1, Tot. Refills 1, Maintenance, 07/30/19 14:51:47 EST, Aerosol, Route to Pharmacy Electronically, [id number], [facility]/pharmacy #[id number] Start Date: 07/30/19 Status: Ordered [...] 12:01:00 EDT, Aerosol, Route to Pharmacy Electronically, [id number], [facility]/pharmacy #7111, 158, cm, 06/21/20 12:56:0... Start Date: 06/30/20 Status: Ordered Valtrex 500 mg oral tablet 500 mg, 1, tablet, By Mouth, Daily, # 30 tablet, Refills 11, Tot. Refills 11, Maintenance, 07/25/1811:27:07 EST, Route to Pharmacy Electronically, [id number], [facility]/pharmacy #[id number] Start Date: 07/25/18 Status: Ordered [...]
--- OUTSIDE RECORDS SUMMARY | 2024-07-03 12:12 | XMS_ITS | Continuity of Care Document ---
Author Organization [facility] Eduardo Dawson Durga lt Address [address] [place] [address]- Care Team Providers Care Electrical Sign Wirer Helper Name Role Phone Joanna VO, Miko Guillen Primary Care Physician [facility]): 06/15/22 - 07/15/22 [facility] Adult [address] [place] [address]- Allergies, Adverse Reactions, Alerts Substance Reaction Severity [...] FLUARIX 4Admin Note: VIS GIVEN 5Admin Note: [facility] info given to patient 6Admin Note: [...] 25.5 each, 1 Refills, Maintenance,05/25/22 15:32:00 EDT, [facility], 75, INHALE 2 PUFFS 4 TIMES A DAY WHEN NEEDED FOR WHEEZING, 155, cm, 04/27/22 14:46:00 EDT, Height, 52.25, kg, 0... Start Date: 05/25/22 Status: Ordered amLODIPine 10 mg oral tablet 10 mg, 1, tablet, By Mouth, Daily, # 90 tablet, Refills 3, Tot. Refills 3, Maintenance, 09/02/21 9:38:00 EST, Route to Pharmacy Electronically, [facility]/pharmacy #[id number], Partial fill upon patient request if the prescription is for a schedule II opioid drug.... Start Date: 09/02/21 Status: Ordered atorvastatin 10 mg oral tablet 0.5 tablet, By Mouth, Daily, # 45 tablet, 3 Refills, 04/10/22 13:41:00 EDT, [facility]/pharmacy #[id number], 155, cm, 04/10/22 13:29:00 EDT, Height Start Date: 04/10/22 Status: Ordered budesonide-formoterol 160 mcg-4.5 mcg/inh inhalation aerosol with adapter 2, puffs, Inhalation, 2 times a day, # 30.6 each, Refills 1, Route to Pharmacy Electronically, [id number], [facility], 155, cm, 05/16/21 12:39:00 EDT, Height Start Date: 06/25/21 Status: Ordered Centrum Silver By Mouth, Daily, 0 Refills, Maintenance, 01/11/17 14:23:47 Start Date: 01/11/17 Status: Ordered cloNIDine 0.1 mg oral tablet 0.1 mg, 1, tablet, By Mouth, 2 times a day, # 180 tablet, Refills 3, Tot. Refills 3, Maintenance, 09/02/21 9:38:00 EST, Route to Pharmacy Electronically, [facility]/pharmacy #[id number], Partial fill upon patientrequest if the prescription is for a schedule II op... Start Date: 09/02/21 Status: Ordered hydroCHLOROthiazide 12.5 mg oral capsule 1 capsule = 12.5 mg, By Mouth, Daily, # 90 capsule, 3 Refills, Maintenance, 10/19/21 11:02:00 EST, Capsule, [facility]/pharmacy #[id number], Partial fill upon patient request if the prescription is for a scheduleII opioid drug., 155, cm, 10/05/21 13:33:00 EST, He... Start Date: 10/19/21 Status: Ordered levothyroxine 0.05 mg oral tablet See Instructions, TAKE 1 TABLET BY MOUTH EVERY DAY, # 90 tablet, 3 Refills, [facility], 155, cm, 04/10/22 13:29:00 EDT, Height Start Date: 04/10/22 Status: Ordered LORazepam 0.5 mg oral tablet 1 tablet = 0.5 mg, By Mouth, Daily, PRN for anxiety, # 24 tablet, 1 Refills, Maintenance, 09/02/21 9:33:00 EST, Tablet, [facility]/pharmacy #[id number], 155, cm, 09/02/21 8:06:00 EST, Height Start Date: 09/02/21 Status: Ordered losartan 100 mg oral tablet 1 tablet, By Mouth, Daily, # 90 tablet, 1 Refills, [facility], 155, cm, 11/14/21 13:39:00 EST,Height Start Date: [...] capsule, 1 Refills, Maintenance, 05/18/22 12:36:00 EDT, [facility] to [facility] as pt requested, 155, cm, 04/27/22 14:46:00 EDT, Height, 52.25, kg, 04/27/22 14:46:00 EDT, Dry Weight Start Date: 05/18/22 Status: Ordered tiZANidine 2 mg oral capsule 1 capsule = 2 mg, By Mouth, Every 8 hours, # 42 capsule, 0 Refills, Maintenance, 03/10/22 13:48:00 EDT, [facility]/pharmacy #[id number], Partial fill upon patient request if the prescription is for a schedule II opioid drug., 155, cm, 03/10/22 13:27:00 EDT, Height Start Date: 03/10/22 Stop Date: 03/24/22 Status: Ordered valACYclovir 500 mg oral tablet 1, tablet, By Mouth, Daily, # 30 tablet, Refills 11, Route to Pharmacy Electronically, [facility], 155, cm, 10/05/21 13:33:00 EST, Height Start [...] CT measuring 4.1 cm. 2CT scan 2015 24286; repeat 2028 4colo 2009 nl, repeat 2019 [...] 03/16/16 Sex Female Patient Care team information Personnel Name: Joanna VO, Miko Guillen Address: Address: [address] [place] [id number]
--- OUTSIDE RECORDS SUMMARY | 2024-07-03 12:12 | XMS_ITS | Continuity of Care Document ---
Author Organization [facility] Eduardo Dawson Durga lt Address [address] [place] [address]- Care Team Providers Care Renal Technician Name Role Phone Joanna VO, Miko Guillen Primary Care Physician [facility] Date[facility]s): 07/15/21 - 08/14/21 [facility] Adult [address] [place] [address]- Allergies, Adverse Reactions, Alerts Substance Reaction Severity [...] toxoids (Td) 11 01/17/04 Given 1Location History: [facility] 2Result Comment: [06/23/2016] HIGH DOSE 3Admin Note: FLUARIX 4Admin Note: VIS GIVEN 5Admin Note: [facility] info given to patient 6Admin [...] 04/15/21 14:11:00 EDT, Route to Pharmacy Electronically, [facility]/pharmacy #[id number], Partial fill upon patient request if the prescription is for a schedul... Start Date: 04/15/21 Status: Ordered atorvastatin 10 mg oral tablet 0.5 tablet, By Mouth, Daily, # 45 tablet, 1 Refills, [facility], 155, cm, 05/16/21 12:39:00 EDT, Height Start Date: 06/07/21 Status: Ordered budesonide-formoterol 160 mcg-4.5 mcg/inh inhalation aerosol with adapter 2, puffs, Inhalation, 2 times a day, # 30.6 each, Refills 1, Route to Pharmacy Electronically, [id number], [facility], 155, cm, 05/16/21 12:39:00 EDT, Height Start Date: 06/25/21 Status: Ordered Centrum Silver By Mouth, Daily, 0 Refills, Maintenance, 01/11/17 14:23:47 Start Date: 01/11/17 Status: Ordered cloNIDine 0.2 mg oral tablet 0.2 mg, 1, tablet, By Mouth, 2 times a day, # 60 tablet, Refills 0, Tot. Refills 0, Maintenance, 05/20/21 11:04:00 EDT, Route to Pharmacy Electronically, [facility]/pharmacy #[id number], Partial fill upon patientrequest if the prescription is for a schedule II op... Start Date: 05/20/21 Status: Ordered levothyroxine 0.05 mg oral tablet 1 tablet, By Mouth, Daily, # 90 tablet, 1 Refills, Maintenance, 03/11/21 15:34:00 EDT, [facility], 158, cm, 02/01/21 9:13:00 EDT, Height Start Date: 03/11/21 Status: Ordered LORazepam 0.5 mg oral tablet 1 tablet = 0.5 mg, By Mouth, Daily, PRN for anxiety, # 24 tablet, 1 Refills, Maintenance, 08/09/20 10:16:00 EST, Tablet, [facility]/pharmacy #[id number], 158, cm, 08/09/20 9:40:00 EST, Height Start Date: 08/09/20 Status: Ordered losartan 100 mg oral tablet 1 tablet, By Mouth, Daily, # 90 tablet, 1 Refills, Maintenance, 03/19/21 21:39:00 EDT, [facility] 84[facility], 158, cm, 03/16/21 9:06:00 EDT, Height Start [...] 7:30:00 EST, Aerosol, Route to Pharmacy Electronically, [id number], [facility]/pharmacy #7111, 158, cm, 09/30/20 1... Start Date: 11/22/20 Stop Date: 01/21/21 Status: Ordered Spiriva HandiHaler 18 mcg inhalation capsule 1 capsule, Inhalation, Daily, # 90 capsule, 1 Refills, Maintenance, 02/22/21 14:59:00 EDT, [facility], 158, cm, 02/01/21 9:13:00 EDT, Height Start Date: 02/22/21 Status: Ordered Valtrex 500 mg oral tablet 500 mg, 1, tablet, By Mouth, Daily, # 30 tablet, Refills 11, Tot. Refills 11, Maintenance, 10/19/2111:02:00 EST, [facility], 158, cm, 09/30/20 14:41:00 EST,Height Start [...]
--- OUTSIDE RECORDS SUMMARY | 2024-07-03 12:12 | XMS_ITS | Continuity of Care Document ---
Author Organization [facility] Address [address] [place] [address]- Care Team Providers Care Steward/Stewardess Dining Room Name Role Phone Miko Marshall MD Primary Care Physician Encounter [facility] Date(s): 06/24/21 - 10/22/21 [facility] [address] [place] [address]- Attending Physician: Maryjane Ascencio Admitting Physician: Maryjane Ascencio Referring Physician: Miko Marshall MD Allergies, Adverse [...] 1Admin Note: historical data 2Location History: [facility] 3Result Comment: [06/23/2016] HIGH DOSE 4Admin Note: FLUARIX 5Admin Note: VIS GIVEN 6Admin Note: [facility] info given to patient 7Admin Note: [...] 9:38:00 EST, Route to Pharmacy Electronically, [facility]/pharmacy #1812, Partial fill upon patient request if the prescription is for a schedule II opioid drug.... Start Date: 09/02/21 Status: Ordered atorvastatin 10 mg oral tablet 0.5 tablet, By Mouth, Daily, # 45 tablet, 1 Refills, [facility], 155, cm, 05/16/21 12:39:00 EDT, Height Start Date: 06/07/21 Status: Ordered budesonide-formoterol 160 mcg-4.5 mcg/inh inhalation aerosol with adapter 2, puffs, Inhalation, 2 times a day, # 30.6 each, Refills 1, Route to Pharmacy Electronically, [id number], [facility], 155, cm, 05/16/21 12:39:00 EDT, Height Start Date: 06/25/21 Status: Ordered Centrum Silver By Mouth, Daily, 0 Refills, Maintenance, 01/11/17 14:23:47 Start Date: 01/11/17 Status: Ordered cloNIDine 0.1 mg oral tablet 0.1 mg, 1, tablet, By Mouth, 2 times a day, # 180 tablet, Refills 3, Tot. Refills 3, Maintenance, 09/02/21 9:38:00 EST, Route to Pharmacy Electronically, [facility]/pharmacy #[id number], Partial fill upon patientrequest if the prescription is for a schedule II op... Start Date: 09/02/21 Status: Ordered hydroCHLOROthiazide 12.5 mg oral capsule 1 capsule = 12.5 mg, By Mouth, Daily, # 90 capsule, 3 Refills, Maintenance, 10/19/21 11:02:00 EST, Capsule, [facility]/pharmacy #7111, Partial fill upon patient request if the prescription is for a scheduleII opioid drug., 155, cm, 10/05/21 13:33:00 EST, He... Start Date: 10/19/21 Status: Ordered levothyroxine 0.05 mg oral tablet 1 tablet, By Mouth, Daily, # 90 tablet, 1 Refills, [facility], 155, cm, 08/05/21 11:25:00 EST,Height Start Date: 09/01/21 Status: Ordered LORazepam 0.5 mg oral tablet 1 tablet = 0.5 mg, By Mouth, Daily, PRN for anxiety, # 24 tablet, 1 Refills, Maintenance, 09/02/21 9:33:00 EST, Tablet, [facility]/pharmacy #7111, 155, cm, 09/02/21 8:06:00 EST, Height Start Date: 09/02/21 Status: Ordered losartan 100 mg oral tablet 1 tablet, By Mouth, Daily, # 90 tablet, 0 Refills, [facility], 155, cm, 09/02/21 8:06:00 EST, Height Start [...] 7:30:00 EST, Aerosol, Route to Pharmacy Electronically, [id number], [facility]/pharmacy #7111, 158, cm, 09/30/20 1... Start Date: 11/22/20 Stop Date: 01/21/21 Status: Ordered Spiriva HandiHaler 18 mcg inhalation capsule 1 capsule, Inhalation, Daily, # 90 capsule, 1 Refills, Maintenance, 10/07/21 11:00:00 EST, [facility], 155, cm, 10/05/21 13:33:00 EST, Height Start Date: 10/07/21 Status: Ordered Valtrex 500 mg oral tablet 500 mg, 1, tablet, By Mouth, Daily, # 30 tablet, Refills 11, Tot. Refills 11, Maintenance, 10/19/2111:02:00 EST, Route to Pharmacy Electronically, [facility]/pharmacy #7111, 158, cm, 09/30/20 14:41:00 EST,Height [...] CT measuring 4.1 cm. 2CT scan 2016 [address]5495; repeat 2028 4colo 2008 nl, repeat 2019 [...]
--- OUTSIDE RECORDS SUMMARY | 2024-07-03 12:12 | XMS_ITS | Continuity of Care Document ---
Author Organization [facility] Eduardo Dawson Durga lt Address [address] [place] [id number]- Care Team Providers Care Roller Repairer Name Role Phone Miko Marshall MD Primary Care Physician [facility] Date[facility]s): 01/23/20 - 02/22/20 [facility] Eduardo Dawson Adult [address] [place] [address]- [facility] Attending Physician: Admtr, Max8 Admitting [...] FLUARIX 4Admin Note: VIS GIVEN 5Admin Note: [facility] info given to patient 6Admin Note: [place] 7Result Comment: OOP 8Admin Note: [facility] 9Admin Note: Information sheet given 10Admin Note: given in clinic 11Admin Note: historical data Medications acetaminophen/butalbital/caffeine 325 mg-50 mg-40 mg oral capsule 1 capsule, By Mouth, Every 4 hours, PRN as needed, not to exceed 6 capsules/day, # 12 capsule, 0 Refills, Maintenance, 01/21/20 11:38:00 EDT, Capsule, [facility]/pharmacy #[id number], 1 capsule By Mouth [...] capsule, 0 Refills, Maintenance, 12/23/19 8:38:00 EDT, [facility]/pharmacy #7111, 1 capsule By Mouth Daily,Instr:Please call to schedule a follow up office visit., 158, cm, 0... Start Date: 12/23/19 Status: Ordered levothyroxine 0.05 mg oral tablet 1 tablet, By Mouth, Daily, # 90 tablet, 0 Refills, Maintenance, 12/19/19 9:09:00 EDT, [facility] STORE [address], 158, cm, 05/22/19 10:37:00 EDT, Height, 57.6, kg, 05/21/18 14:53:00 EDT, Dry Weight Start Date: 12/19/19 Status: Ordered LORazepam 0.5 mg oral tablet 1 tablet = 0.5 mg, By Mouth, Daily, PRN for anxiety, , # 24 tablet, 1 Refills, Maintenance, 09/12/19 13:53:00 EST, Tablet, [facility]/pharmacy #7111, 158, cm, 05/22/19 10:37:00 EDT, Height, 57.6, kg, 05/21/18 14:53:00 EDT, Dry Weight Start Date: 09/12/19 Status: Ordered losartan 100 mg oral tablet 1 tablet = 100 mg, By Mouth, Daily, please make OV within next 1-2 months for further refills., # 30 tablet, 1 Refills, Maintenance, 11/12/19 16:41:00 EST, Tablet, [facility]/pharmacy #7111, 158, cm, 05/22/19 10:37:00 EDT, Height, [...] 14:51:47 EST, Aerosol, Route to Pharmacy Electronically, [id number], [facility]/pharmacy #7111 Start Date: 07/30/19 Status: Ordered Spiriva [...] 12:57:08 EST, Aerosol, Route to Pharmacy Electronically, [id number], [facility], 158, cm, 0... Start Date: 08/21/19 Status: Ordered valsartan 320 mg oral tablet 1 tablet = 320 mg, By Mouth, Daily, # 90 tablet, 3 Refills, Maintenance, 01/28/20 7:32:00 EDT, [facility], cm, 01/01/20 10:50:00 EDT, Height, 57.6, kg, 05/21/18 14:53:00 EDT, DryWeight Start Date: 01/28/20 Status: Ordered Valtrex 500 mg oral tablet 500 mg, 1, tablet, By Mouth, Daily, # 30 tablet, Refills 11, Tot. Refills 11, Maintenance, 07/25/1811:27:07 EST, Route to Pharmacy Electronically, [id number], [facility] Start Date: 07/25/18 Status: Ordered Problem [...]
--- OUTSIDE RECORDS SUMMARY | 2024-07-03 12:12 | XMS_ITS | Continuity of Care Document ---
Author Organization [facility] Address [address] [place] [id number]- Care Team Providers Care Audio Production Manager Name Role Phone Miko Marshall MD Primary Care Physician [phone] [place]counter [facility] [place](s): 01/26/23 - 02/02/23 [facility] [address] [place] [address]- Attending Physician: Jeffry Paulson MD Admitting Physician: [...] VIS GIVEN 5Admin Note: [facility] info given to patient 6Admin Note: GIANCARLO [...] 1 Refills, Maintenance,05/25/22 15:32:00 EDT, [facility], 75, INHALE 2 PUFFS 4 TIMES A DAY WHEN NEEDED FOR WHEEZING, 155, cm, 04/27/22 14:46:00 EDT, Height, 52.25, kg, 0... Start Date: 05/25/22 Status: Ordered amLODIPine 10 mg oral tablet 10 mg, 1, tablet, By Mouth, Daily, # 90 tablet, Refills 3, Tot. Refills 3, Maintenance, 11/22/22 16:38:00 EST, Route to Pharmacy Electronically, [facility]/pharmacy #7111, Partial fill upon patient request if the prescription is for a schedule II opioid drug... Start Date: 11/22/22 Status: Ordered atorvastatin 10 mg oral tablet 0.5 tablet, By Mouth, Daily, # 45 tablet, 3 Refills, 04/10/22 13:41:00 EDT, [facility]/pharmacy #7111, 155, cm, 04/10/22 13:29:00 EDT, Height Start Date: 04/10/22 Status: Ordered budesonide-formoterol 160 mcg-4.5 mcg/inh inhalation aerosol with adapter 2, puffs, Inhalation, 2 times a day, # 30.6 each, Refills 1, Tot. Refills 1, 07/17/22 13:30:00 EDT,Route to Pharmacy Electronically, [id number], [facility]/pharmacy #7111, 155, cm, 06/12/22 14:03:00 EDT, Height, [...] Refills, Maintenance, 12/28/22 7:50:00 EDT, [facility], 155, cm, 10/16/22 12:48:00 EST, Height, 52.25, kg, 04/27/22 14:46:00 EDT, Dry Weight Start Date: 12/28/22 Status: Ordered levothyroxine 0.05 mg oral tablet 1 tablet, By Mouth, Daily, # 90 tablet, 1 Refills, Maintenance, 09/06/22 15:47:00 EST, [facility] STORE 08382, 155, cm, 06/12/22 14:03:00 EDT, Height, 52.25, kg, 04/27/22 14:46:00 EDT, Dry Weight Start Date: 09/06/22 Status: Ordered LORazepam 0.5 mg oral tablet 1 tablet = 0.5 mg, By Mouth, Daily, PRN for anxiety, # 24 tablet, 1 Refills, Maintenance, 10/18/22 10:48:00 EST, Tablet, [facility]/pharmacy #7111, 155, cm, 10/16/22 12:48:00 EST, Height, 52.25, kg, 04/27/22 14:46:00 EDT, Dry Weight Start Date: 10/18/22 Status: Ordered losartan 100 mg oral tablet 1 tablet, By Mouth, Daily, # 90 tablet, 3 Refills, Maintenance, 11/22/22 16:38:00 EST, [facility]/pharmacy#7111, 155, cm, 10/16/22 12:48:00 EST, Height, 52.25, [...] 12/22/22 9:50:00 EDT, Route to Pharmacy Electronically, [facility], 155, cm, 10/16/22 12:48:00 EST, Height, 52.25, [...] oldest [Reference Range]: 1 Height 155 cm (01/26/23 10:50 AM) Weight 54.3 kg (01/26/23 10:50 AM) Oxygen Saturation [94-100 %] 95 % (01/26/23 10:50 AM) Pulse Rate [55-90 bpm] 68 bpm (01/26/23 10:50 AM) Body Mass Index [18.5-24.99 kg/m2] 22.6 kg/m2 (01/26/23 10:50 AM) Blood Pressure [90-138/55-84 mm Hg] 118/ 70mm Hg (01/26/23 10:50 AM) Mode of Delivery (Oxygen) Room air (01/26/23 10:50 AM) Blood pressure sites Arm, left (01/26/23 10:50 AM) Weight Obtained Via Patient/family state d (01/26/23 10:50 AM) Social History Social History Type Response Smoking Status Former smoker; Other : quit 15 years ago; entered on: 03/16/16 Sex Female Note * Randi Jett: PERFORM, SIGN, VERIFY Event Display: Patient Education/Instruction Authored Date: [id number] [facility] *[facility] [address] Clinical Summary Name SATHISH MARIE Age 77 Years 1945 PCP Miko Marshall MD PCP Visit Date 01/26/2023 10:45:00 Additional Instructions: Scheduled Appointments?? Future Appointments ?*[facility]??[facility] [address],??[address] ?Phone:??--?Fax:??-- ?Appt. Date:??02/21/2023?10:30 AM ?Scheduled Provider:??Miko Marshall MD Follow-Up Instructions ?? Diagnosis Medications: Please continue your medications until treatment is completed or stopped by your provider. Discuss any questions related to medications with your provider. Medications to Continue with No Changes These medications were not printed or sent to your pharmacy Albuterol (Albuterol (Eqv-ProAir HFA) 90 mcg/inh inhalation aerosol) 2 puff(s) Inhalation 4 times aday. WHEN NEEDED FOR WHEEZING.. Refills: 1. Next Dose: Amlodipine (amLODIPine 10 mg oral tablet) 1 tab(s) Oral Daily. Refills: 3. Next Dose: apixaban (Eliquis Starter Pack 5 mg oral tablet) Next Dose: Atorvastatin (atorvastatin 10 mg oral tablet) 0.5 tab(s) Oral Daily. Refills: 3. Next Dose: Budesonide-Formoterol (budesonide-formoterol 160 mcg-4.5 mcg/inh inhalation aerosol with adapter) 2puff(s) Inhalation twice a day. Refills: 1. Next Dose: Chlorthalidone (chlorthalidone 25 mg oral tablet) 0.5 tab(s) Oral Daily. Next Dose: Durable Medical Equipment (Aerochamber) use with albuterol inhaler.. Refills: 0. Next Dose: Hydrochlorothiazide (hydroCHLOROthiazide 12.5 mg oral capsule) 1 capsule Oral Daily. Refills: 3. Next Dose: Levothyroxine (levothyroxine 0.05 mg oral tablet) 1 tab(s) Oral Daily. Refills: 1. Next Dose: Lorazepam (LORazepam 0.5 mg oral tablet) 1 tab(s) Oral Daily as needed for anxiety. Refills: 1. Next Dose: Losartan (losartan 100 mg oral tablet) 1 tab(s) Oral Daily. Refills: 3. Next Dose: Magnesium Oxide (magnesium oxide 500 mg oral tablet) 1 tab(s) Oral Daily. Next Dose: Multivitamin With Minerals (Centrum Silver) Oral Daily. Next Dose: Pantoprazole (pantoprazole 40 mg oral delayed release tablet) 1 tab(s) Oral Daily. Next Dose: Tiotropium (Spiriva HandiHaler 18 mcg inhalation capsule) 1 capsule Inhalation Daily. Refills: 1. Next Dose: ValACYclovir (valACYclovir 500 mg oral tablet) 1 tab(s) Oral Daily. Refills: 11. Next Dose: Zinc Sulfate (Zinc) 140 Milligram Oral Daily. Next Dose: Allergy Info:?? Latex; Adhesive Bandage Medications Given This Visit Future Orders ?No future orders Vital Signs Height 155 cm Weight 54.3 kg BMI 22.6 kg/m2 Blood Pressure 118 mm Hg/70 mm Hg Temperature Pulse Rate 68 bpm Respiratory Rate 02 Sat Mode of Delivery 95 %/Room air You can now view a summary of your hospital visit from the comfort of your home through a free online portal called [facility]. [facility] is a website that allows you to securely view your medical information including discharge summary, medications and follow-up visits. ??You can alsosend a secure electronic message to your doctor???s office to request appointments, renew medications or just ask a question. You can enroll at [email or web address] or register during your next office visit. Disclaimer:?? The information provided is of a general nature and is intended to be used in conjunction with the recommendations and advice of your health care practitioner. ??Every effort has been made to ensure that the information provided is accurate and complete at the time it is provided to you however, as your needs change, or, as new ??information becomes available, different or additional instructions may be required. If you have questions, please consult with your primary care provider or pharmacist, as appropriate. ??This information is not intended to serve as substitution for assessment and evaluation by a qualified health care provider. If you do not have a primary care provider, you may find a [facility] provider by calling [facility] at [phone]. For information about the plan of care including goals and instructions for your diagnosis, please see the patient education orders section of this document. Patient Education Materials?? The content of this educational material or handout may have been modified, supplemented, or adapted from its original content and format to support your individualized medical care. Patient Care team information Care Team Personnel Name: Maria G Mendez RN Position: [facility] RN Member Role: Primary Care Nurse Name: Barby Frias Position: [facility] Outreach Member Role: Lifetime Consulting Physician Name: Miko Marshall MD Position: [facility] Primary Care Physician Member Role: PCP Address: Address: [address] [place] [id number] Name: Sridhar De Leon RN Position: [facility] RN Member Role: Primary Care Nurse Care Team Related Persons Name: MU CONTRERAS Address: [place] [address] Name: SHANELL COBIAN Address: [address] [address]
--- OUTSIDE RECORDS SUMMARY | 2024-07-03 12:12 | XMS_ITS | Continuity of Care Document ---
Author Organization [facility] [place] Durga lt Address [address] [place] [address]- Care Team Providers Care Room Service Runner Name Role Phone Miko Marshall MD Primary Care Physician [facility]counter [facility] Date(s): 10/12/23 - 10/19/23 [facility] Adult [address] [place] [address]- Encounter Diagnosis Palpitations(Discharge Diagnosis) - 10/12/23 HTN (hypertension)(Discharge Diagnosis) - 10/12/23 Attending Physician: Brenda Jackson NP Allergies, Adverse Reactions, Alerts Substance Reaction Severity [...] n 1Result Comment: [facility]: 61088-245-08 [facility] 3[facility]: [06/23/2016] HIGH [...] 1 Refills, Maintenance,05/25/22 15:32:00 EDT, [facility], 75, INHALE 2 PUFFS 4 TIMES A DAY WHEN NEEDED FOR WHEEZING, 155, cm, 04/27/22 14:46:00 EDT, Height, 52.25, kg, 0... Start Date: 05/25/22 Status: Ordered amLODIPine 10 mg oral tablet 10 mg, 1, tablet, By Mouth, Daily, # 90 tablet, Refills 3, Tot. Refills 3, Maintenance, 11/22/22 16:38:00 EST, [facility] Partial fill upon patient request if [...] tablet, 6 Refills, Maintenance, 06/29/23 15:09:00 EDT, [facility]/pharmacy #7111, 155, cm, 06/29/23 14:50:00 EDT, Height, 52.25, kg, 04/27/22 14:46:00 EDT, Dry Weight Start Date: 06/29/23 Status: Ordered budesonide-formoterol 160 mcg-4.5 mcg/inh inhalation aerosol with adapter 2, puffs, Inhalation, 2 times a day, # 30.6 each, Refills 1, Maintenance, 08/29/23 5:44:00 EST, Route to Pharmacy Electronically, [id number], [facility] STORE 34450, 155, cm, 08/27/23 8:53:00 EST, Height, 52.25, [...] 09/28/23 13:34:00 EST, [facility] Partial fill upon patient request if the prescription is for a schedule II o... Start Date: 09/28/23 Stop Date: 09/22/24 Status: Ordered fluticasone 50 mcg/inh nasal spray 1 sprays, Nares, Both, 2 times a day, # 16 Gm, 11 Refills, Maintenance, 06/29/23 15:10:00 EDT, Nasal [place], [facility]/pharmacy #7111, Partial fill upon patient request if the prescription is for a scheduleII opioid drug., 1 sprays Nares, Both 2 times a day... Start Date: 06/29/23 Status: Ordered hydroCHLOROthiazide 12.5 mg oral capsule 1 capsule, By Mouth, Daily, # 90 capsule, 3 Refills, Maintenance, 12/28/22 7:50:00 EDT, [facility] STORE 13518, 155, cm, 10/16/22 12:48:00 EST, Height, 52.25, kg, 04/27/22 14:46:00 EDT, Dry Weight Start Date: 12/28/22 Status: Ordered levothyroxine 0.05 mg oral tablet 1 tablet, By Mouth, Daily, # 90 tablet, 0 Refills, Maintenance, 08/29/23 5:44:00 EST, [facility], 155, cm, 08/27/23 8:53:00 EST, Height, 52.25, kg, 04/27/22 14:46:00 EDT, Dry Weight Start Date: 08/29/23 Status: Ordered LORazepam 0.5 mg oral tablet 1 tablet = 0.5 mg, By Mouth, Daily, PRN for anxiety, # 24 tablet, 1 Refills, Maintenance, 10/18/22 10:48:00 EST, Tablet, [facility]/pharmacy #7111, 155, cm, 10/16/22 12:48:00 EST, Height, 52.25, kg, 04/27/22 14:46:00 EDT, Dry Weight Start Date: 10/18/22 Status: Ordered losartan 100 mg oral tablet 1 tablet, By Mouth, Daily, # 90 tablet, 3 Refills, Maintenance, 11/22/22 16:38:00 EST, [facility]/pharmacy#7111, 155, cm, 10/16/22 12:48:00 EST, [...] capsule, 1 Refills, Maintenance, 09/11/23 10:37:00 EST, [facility]/pharmacy #7111, 155, cm, 08/27/23 8:53:00 EST, Height, 52.25, kg, 04/27/22 14:46:00 EDT, Dry Weight Start Date: 09/11/23 Status: Ordered valACYclovir 500 mg oral tablet 1, tablet, By Mouth, Daily, # 30 tablet, Refills 11, Maintenance, 12/22/22 9:50:00 EDT, Route to Pharmacy Electronically, [facility] STORE 24380, 155, cm, 10/16/22 12:48:00 EST, Height, 52.25, [...] 2015; repeat 2028 4colo 2008 nl, repeat 2018 5Problem added by Discern Expert 6colo 2018 7egd 2012 no barretts 8colo 2018 9Status post laparotomy with lysis of adhesions and repair of incarcerated ventral hernia. Surgery performed March 2018. 10Thyroid peroxidase antibody positive Diagnosis Diagnosis Type Effective Dates Health Status Clinical Service Informant Palpitations Discharge Diagnosis 10/12/23 HTN (hypertension) Discharge Diagnosis 10/12/23 Vital Signs Most recent to oldest [Reference Range]: 1 2 Height 155 cm (10/12/23 4:44 PM) 155 cm (10/12/23 4:02 PM) Weight 57.1 kg (10/12/23 4:02 PM) Oxygen Saturation [94-100 %] 96 % (10/12/23 4:02 PM) Pulse Rate [55-90 bpm] 62 bpm (10/12/23 4:02 PM) Body Mass Index [18.5-24.99 kg/m2] 23.77 kg/m2 (10/12/23 4:02 PM) Blood Pressure [90-138/55-84 mm Hg] 122/ 70mm Hg (10/12/23 4:02 PM) Temperature [96.8-100.4 DegF] 97.7 DegF (10/12/23 4:02 PM) Mode of Delivery (Oxygen) Room air (10/12/23 4:02 PM) Blood pressure sites Arm, right (10/12/23 4:02 PM) Temperature Route Oral (10/12/23 4:02 PM) Weight Obtained Via Standing scale (10/12/23 4:02 PM) Social History Social History Type Response Smoking Status Former smoker; Other : quit 15 years ago; entered on: 03/16/16 Sex Female EKG study * Event Display: ECG 12-Lead Authored Date: Please click on pdf link to open report * Event Display: ECG 12-Lead Authored Date: Ventricular Rate: 69 BPM Atrial Rate: 69 BPM P-R Interval: 194 ms QRS Duration: 86 ms Q-T Interval: 400 ms QTC Calculation(Bazett): 428 ms P [place]: 51 degrees R [place]: 27 degrees T [place]: 66 degrees Normal sinus rhythm Normal ECG When compared with ECG of 26-MAR-2018 06:13, No significant change was found Confirmed by SEEMA CRISOSTOMO MD ([id number]) on 10/13/2023 11:36:25 AM [place]: SEEMA CRISOSTOMO MD Patient Care team information Care Team Personnel Name: Maria G Mendez RN Position: S RN Member Role: Primary Care Nurse Name: Barby Frias Position: [facility] Outreach Member Role: Lifetime Consulting Physician Name: Joanna VO, Miko Guillen Position: [facility] Physician - Primary Care Member Role: PCP Address: Address: [address] [place] [address]- Name: Zachary Biswas MD Position: [facility] Renal MD Member Role: Lifetime Consulting Physician Address: Address: [address] [place] [address] [address] [facility] [place] [address]- [place] Name: Sridhar De Leon RN Position: [facility] RN Member Role: Primary Care Nurse Care Team Related Persons Name: MU CONTRERAS Address: [place] [address] Name: SHANELL COBIAN Address: [address] [address]
--- OUTSIDE RECORDS SUMMARY | 2024-07-03 12:12 | XMS_ITS | Continuity of Care Document ---
Author Organization [facility] Eduardo Dawson Durga lt Address [address] [place] [id number]- Care Team Providers Care Assistant Editor Name Role Phone Miko Marshall MD Primary Care Physician [facility]counter [facility] Date(s): 11/24/23 - 12/24/23 [facility] Adult [address] [place] [address]- Allergies, Adverse Reactions, Alerts Substance Reaction Severity [...] 10 06/24/08 Give n 1Result Comment: [facility]: [id number] 2Location History: [facility] 3Result Comment: [06/23/2016] HIGH DOSE 4Admin [...] tablet, 1 Refills, Maintenance, 12/22/23 8:21:00 EDT, [facility]/pharmacy #7111, 155, cm, 10/12/23 16:44:00 EST, [...] 11/20/23 9:54:00 EST, Route to Pharmacy Electronically, [id number], [facility]/pharmacy #7111, 155, cm, 10/12/23 16:44:00 EST, [...] 09/28/23 13:34:00 EST, [facility] Partial fill upon patient request if the prescription is for a schedule II o... Start Date: 09/28/23 Stop Date: 09/22/24 Status: Ordered fluticasone 50 mcg/inh nasal spray 1 sprays, Nares, Both, 2 times a day, # 16 Gm, 11 Refills, Maintenance, 06/29/23 15:10:00 EDT, Nasal [place], [facility]/pharmacy #7111, Partial fill upon patient request if the prescription is for a scheduleII opioid drug., 1 sprays Nares, Both 2 times a day... Start Date: 06/29/23 Status: Ordered hydroCHLOROthiazide 12.5 mg oral capsule 1 capsule, By Mouth, Daily, # 90 capsule, 3 Refills, Maintenance, 12/28/22 7:50:00 EDT, [facility], 155, cm, 10/16/22 12:48:00 EST, Height, 52.25, kg, 04/27/22 14:46:00 EDT, Dry Weight Start Date: 12/28/22 Status: Ordered levothyroxine 0.05 mg oral tablet 1 tablet, By Mouth, Daily, # 90 tablet, 0 Refills, Maintenance, 11/26/23 9:51:00 EDT, [facility], 155, cm, 10/12/23 16:44:00 EST, Height, 52.25, kg, 04/27/22 14:46:00 EDT, Dry Weight Start Date: 11/26/23 Status: Ordered LORazepam 0.5 mg oral tablet 1 tablet = 0.5 mg, By Mouth, Daily, PRN for anxiety, # 24 tablet, 1 Refills, Maintenance, 12/11/23 9:46:00 EDT, Tablet, [facility]/pharmacy #7111, 155, cm, 10/12/23 16:44:00 EST, Height, 52.25, kg, 04/27/2214:46:00 EDT, Dry Weight Start Date: 12/11/23 Status: Ordered losartan 100 mg oral tablet 1 tablet, By Mouth, Daily, # 90 tablet, 1 Refills, Maintenance, 12/22/23 8:20:00 EDT, [facility]/pharmacy #7111, 155, cm, 10/12/23 16:44:00 EST, [...] capsule, 4 Refills, Maintenance, 11/20/23 9:54:00 EST, [facility]/pharmacy #7111, 155, cm, 10/12/23 16:44:00 EST, Height, 52.25, kg, 04/27/22 14:46:00 EDT, Dry Weight Start Date: 11/20/23 Status: Ordered valACYclovir 500 mg oral tablet 1, tablet, By Mouth, Daily, # 30 tablet, Refills 11, Maintenance, 12/22/22 9:50:00 EDT, Route to Pharmacy Electronically, [facility] STORE 48371, 155, cm, 10/16/22 12:48:00 EST, Height, 52.25, kg, 04/27/22 14:46:00 EDT, Dry Weight Start Date: 12/22/22 Status: Ordered Ventolin HFA 108 mcg/inh inhalation aerosol with adapter 2 puffs, Inhalation, Every 6 hours, PRN for wheezing, # 8 Gm, 11 Refills, Maintenance, 11/20/23 9:54:00 EST, Aerosol, [facility]/pharmacy #7111, Partial fill upon [...] CT measuring 4.1 cm. 2CT scan 2016 67608; repeat 2028 4colo 2009 nl, repeat 2019 [...] Physician Name: Joanna VO, Miko Guillen Position: [facility] Physician - Primary Care Member Role: PCP Address: Address: [address] [place] [address]- Name: Zachary Biswas MD Position: [facility] Renal MD Member Role: Lifetime Consulting Physician Address: Address: [address] [place] [address] [address] [facility] [place] [address]- [place] Name: Sridhar De Leon RN Position: [facility] RN Member Role: Primary Care Nurse Care Team Related Persons Name: MU CONTRERAS Address: [place] [address] Name: SHANELL COBIAN Address: [address] [address]
--- OUTSIDE RECORDS SUMMARY | 2024-07-03 12:12 | XMS_ITS | Continuity of Care Document ---
Author Organization [facility] Eduardo Dawson Durga lt Address [address] [place] [address]- Care Team Providers Care Wrapper Selector Name Role Phone Miko Marshall MD Primary Care Physician Encounter [facility] Date(s): 09/02/21 - 09/09/21 [facility] Adult [address] [place] [address]- Encounter Diagnosis Insomnia(Discharge Diagnosis) - 09/02/21 HTN (hypertension)(Discharge Diagnosis) - 09/02/21 Attending Physician: Miko Marshall MD Allergies, Adverse Reactions, Alerts Substance Reaction Severity Status Adhesive Bandage rash swelling Active Latex rash swelling Active Immunizations Given and Recorded Vaccine Date Status Refusal Reason SARS-CoV-2 (COVID-19) mRNA BNT-162b2 vac 07/02/21 Recorded [...] virus vaccine, inactivated 7, 8 05/30/10 Given Zoster Vaccine Live 07/06/20 Recorded [...] toxoids (Td) 11 01/17/04 Given 1Location History: [facility] 2Result Comment: [06/23/2016] HIGH DOSE 3Admin Note: [facility] 4Admin Note: VIS GIVEN 5Admin Note: [facility] info given to patient 6Admin Note: [...] 09/02/21 9:38:00 EST, Route to Pharmacy Electronically, [facility]/pharmacy #9293, Partial fill upon patient request if the prescription is for a schedule II opioid drug.... Start Date: 09/02/21 Status: Ordered atorvastatin 10 mg oral tablet 0.5 tablet, By Mouth, Daily, # 45 tablet, 1 Refills, [facility] STORE 68419, 155, cm, 05/16/21 12:39:00 EDT, Height Start Date: 06/07/21 Status: Ordered budesonide-formoterol 160 mcg-4.5 mcg/inh inhalation aerosol with adapter 2, puffs, Inhalation, 2 times a day, # 30.6 each, Refills 1, Route to Pharmacy Electronically, [id number], [facility] STORE 76017, 155, cm, 05/16/21 12:39:00 EDT, Height Start Date: 06/25/21 Status: Ordered Centrum Silver By Mouth, Daily, 0 Refills, Maintenance, 01/11/17 14:23:47 Start Date: 01/11/17 Status: Ordered cloNIDine 0.1 mg oral tablet 0.1 mg, 1, tablet, By Mouth, 2 times a day, # 180 tablet, Refills 3, Tot. Refills 3, Maintenance, 09/02/21 9:38:00 EST, [facility] Partial fill upon patientrequest if the prescription is for a schedule II op... Start Date: 09/02/21 Status: Ordered levothyroxine 0.05 mg oral tablet 1 tablet, By Mouth, Daily, # 90 tablet, 1 Refills, [facility] STORE 62294, 155, cm, 08/05/21 11:25:00 EST,Height Start Date: 09/01/21 Status: Ordered LORazepam 0.5 mg oral tablet 1 tablet = 0.5 mg, By Mouth, Daily, PRN for anxiety, # 24 tablet, 1 Refills, Maintenance, 09/02/21 9:33:00 EST, Tablet, [facility]/pharmacy #7111, 155, cm, 09/02/21 8:06:00 EST, Height Start Date: 09/02/21 Status: Ordered losartan 100 mg oral tablet 1 tablet, By Mouth, Daily, # 90 tablet, 1 Refills, Maintenance, 03/19/21 21:39:00 EDT, [facility] STORE 86285, 158, cm, 03/16/21 9:06:00 EDT, Height Start [...] 7:30:00 EST, Aerosol, Route to Pharmacy Electronically, [id number], [facility]/pharmacy #7111, 158, cm, 09/30/20 1... Start Date: 11/22/20 Stop Date: 01/21/21 Status: Ordered Spiriva HandiHaler 18 mcg inhalation capsule 1 capsule, Inhalation, Daily, # 90 capsule, 1 Refills, Maintenance, 02/22/21 14:59:00 EDT, [facility], 158, cm, 02/01/21 9:13:00 EDT, Height Start Date: 02/22/21 Status: Ordered Valtrex 500 mg oral tablet 500 mg, 1, tablet, By Mouth, Daily, # 30 tablet, Refills 11, Tot. Refills 11, Maintenance, 10/19/2111:02:00 EST, [facility], cm, 09/30/20 14:41:00 EST,Height Start [...] CT measuring 4.1 cm. 2CT scan 2015 [address]67; repeat 2028 4colo 2009 nl, repeat 2018 5colo 2018 6egd 2012 no barretts 7colo 2018 8Status post laparotomy with lysis of adhesions and repair of incarcerated ventral hernia. Surgery performed March 2018. 9Thyroid peroxidase antibody positive Diagnosis Diagnosis Type Effective Dates Health Status Cl inical Service Informant Insomnia Discharge Diagnosis 09/02/21 HTN (hypertension) Discharge Diagnosis 09/02/21 Vital Signs Most recent to oldest [Reference Range]: 1 Height 155 cm (09/02/21 8:06 AM) Social History Social History Type Response Smoking Status Former smoker; Other : quit 15 years ago; entered on: 03/16/16 Sex Female
--- OUTSIDE RECORDS SUMMARY | 2024-07-03 12:12 | XMS_ITS | Continuity of Care Document ---
Author Organization [facility] Eduardo Dawson Durga lt Address [address] [place] [address]- Care Team Providers Care Batter Depositor Name Role Phone Joanna VO, Miko Guillen Primary Care Physician [phone] [facility] Date[facility] 06[facility]13/22 - 07/13/22 [facility] Adult [address] [place] [address]- Allergies, Adverse Reactions, Alerts Substance Reaction Severity [...] Note: VIS GIVEN 5Admin Note: [facility] info given to patient 6Admin Note: GIANCARLO [...] 25.5 each, 1 Refills, Maintenance,05/25/22 15:32:00 EDT, [facility] STORE 45391, 75, INHALE 2 PUFFS 4 TIMES A DAY WHEN NEEDED FOR WHEEZING, 155, cm, 04/27/22 14:46:00 EDT, Height, 52.25, kg, 0... Start Date: 05/25/22 Status: Ordered amLODIPine 10 mg oral tablet 10 mg, 1, tablet, By Mouth, Daily, # 90 tablet, Refills 3, Tot. Refills 3, Maintenance, 09/02/21 9:38:00 EST, Route to Pharmacy Electronically, [facility]/pharmacy #9829, Partial fill upon patient request if the prescription is for a schedule II opioid drug.... Start Date: 09/02/21 Status: Ordered atorvastatin 10 mg oral tablet 0.5 tablet, By Mouth, Daily, # 45 tablet, 3 Refills, 04/10/22 13:41:00 EDT, [facility]/pharmacy #7111, 155, cm, 04/10/22 13:29:00 EDT, Height Start Date: 04/10/22 Status: Ordered budesonide-formoterol 160 mcg-4.5 mcg/inh inhalation aerosol with adapter 2, puffs, Inhalation, 2 times a day, # 30.6 each, Refills 1, Route to Pharmacy Electronically, [id number], [facility], 155, cm, 05/16/21 12:39:00 EDT, Height Start Date: 06/25/21 Status: Ordered Centrum Silver By Mouth, Daily, 0 Refills, Maintenance, 01/11/17 14:23:47 Start Date: 01/11/17 Status: Ordered cloNIDine 0.1 mg oral tablet 0.1 mg, 1, tablet, By Mouth, 2 times a day, # 180 tablet, Refills 3, Tot. Refills 3, Maintenance, 09/02/21 9:38:00 EST, Route to Pharmacy Electronically, [facility]/pharmacy #[id number], Partial fill upon patientrequest if the prescription is for a schedule II op... Start Date: 09/02/21 Status: Ordered hydroCHLOROthiazide 12.5 mg oral capsule 1 capsule = 12.5 mg, By Mouth, Daily, # 90 capsule, 3 Refills, Maintenance, 10/19/21 11:02:00 EST, Capsule, [facility]/pharmacy #7111, Partial fill upon patient request if the prescription is for a scheduleII opioid drug., 155, cm, 10/05/21 13:33:00 EST, He... Start Date: 10/19/21 Status: Ordered levothyroxine 0.05 mg oral tablet See Instructions, TAKE 1 TABLET BY MOUTH EVERY DAY, # 90 tablet, 3 Refills, [facility], 155, cm, 04/10/22 13:29:00 EDT, Height Start Date: 04/10/22 Status: Ordered LORazepam 0.5 mg oral tablet 1 tablet = 0.5 mg, By Mouth, Daily, PRN for anxiety, # 24 tablet, 1 Refills, Maintenance, 09/02/21 9:33:00 EST, Tablet, [facility]/pharmacy #7111, 155, cm, 09/02/21 8:06:00 EST, Height Start Date: 09/02/21 Status: Ordered losartan 100 mg oral tablet 1 tablet, By Mouth, Daily, # 90 tablet, 1 Refills, [facility] STORE 75210, 155, cm, 11/14/21 13:39:00 EST,Height Start Date: [...] capsule, 1 Refills, Maintenance, 05/18/22 12:36:00 EDT, [facility] Rx resent to [facility] as pt requested, 155, cm, 04/27/22 14:46:00 EDT, Height, 52.25, kg, 04/27/22 14:46:00 EDT, Dry Weight Start Date: 05/18/22 Status: Ordered tiZANidine 2 mg oral capsule 1 capsule = 2 mg, By Mouth, Every 8 hours, # 42 capsule, 0 Refills, Maintenance, 03/10/22 13:48:00 EDT, [facility]/pharmacy #7111, Partial fill upon patient request if the prescription is for a schedule II opioid drug., 155, cm, 03/10/22 13:27:00 EDT, Height Start Date: 03/10/22 Stop Date: 03/24/22 Status: Ordered valACYclovir 500 mg oral tablet 1, tablet, By Mouth, Daily, # 30 tablet, Refills 11, Route to Pharmacy Electronically, [facility] STORE 53479, 155, cm, 10/05/21 13:33:00 EST, Height Start [...] CT measuring 4.1 cm. 2CT scan 2015 [id number]; repeat 2028 4colo 2009 nl, repeat 2019 [...] Name: Joanna VO, Miko Guillen Address: Address: [address] [place] [id number]
--- OUTSIDE RECORDS SUMMARY | 2024-07-03 12:12 | XMS_ITS | Continuity of Care Document ---
Author Organization [facility] Samir Durga lt Address [address] [place] [address]- Care Team Providers Care Jockey'S Agent Name Role Phone Miko Marshall MD Primary Care Physician [facility]): 11[facility]23 - 12/08/23 [facility] Adult [address] [place] [address]- Allergies, Adverse Reactions, Alerts Substance Reaction Severity [...] 10 06/24/08 Give n 1Result Comment: [facility]: [id number] 2Location History: [facility] 3Result Comment: [06/23/2016] HIGH DOSE 4Admin Note: FLUARIX 5Admin Note: VIS GIVEN 6Admin Note: [facility] info given to patient 7Admin Note: [...] 11/22/22 16:38:00 EST, Route to Pharmacy Electronically, [facility]/pharmacy #[id number], Partial fill upon patient request if the [...] tablet, 6 Refills, Maintenance, 06/29/23 15:09:00 EDT, [facility]/pharmacy #7111, 155, cm, 06/29/23 14:50:00 EDT, Height, 52.25, kg, 04/27/22 14:46:00 EDT, Dry Weight Start Date: 06/29/23 Status: Ordered budesonide-formoterol 160 mcg-4.5 mcg/inh inhalation aerosol with adapter 2, puffs, Inhalation, 2 times a day, # 30.6 each, Refills 11, Tot. Refills 11, Maintenance, 11/20/23 9:54:00 EST, Route to Pharmacy Electronically, [id number], [facility]/pharmacy #7111, 155, cm, 10/12/23 16:44:00 EST, [...] 09/28/23 13:34:00 EST, [facility] Partial fill upon patient request if the prescription is for a schedule II o... Start Date: 09/28/23 Stop Date: 09/22/24 Status: Ordered fluticasone 50 mcg/inh nasal spray 1 sprays, Nares, Both, 2 times a day, # 16 Gm, 11 Refills, Maintenance, 06/29/23 15:10:00 EDT, [place], [facility]/pharmacy #7111, Partial fill upon patient request if the prescription is for a scheduleII opioid drug., 1 sprays Nares, Both 2 times a day... Start Date: 06/29/23 Status: Ordered hydroCHLOROthiazide 12.5 mg oral capsule 1 capsule, By Mouth, Daily, # 90 capsule, 3 Refills, Maintenance, 12/28/22 7:50:00 EDT, [facility], 155, cm, 10/16/22 12:48:00 EST, Height, 52.25, kg, 04/27/22 14:46:00 EDT, Dry Weight Start Date: 12/28/22 Status: Ordered levothyroxine 0.05 mg oral tablet 1 tablet, By Mouth, Daily, # 90 tablet, 0 Refills, Maintenance, 11/26/23 9:51:00 EDT, [facility] STORE 90679, 155, cm, 10/12/23 16:44:00 EST, Height, 52.25, kg, 04/27/22 14:46:00 EDT, Dry Weight Start Date: 11/26/23 Status: Ordered LORazepam 0.5 mg oral tablet 1 tablet = 0.5 mg, By Mouth, Daily, PRN for anxiety, # 24 tablet, 1 Refills, Maintenance, 10/18/22 10:48:00 EST, Tablet, [facility]/pharmacy #[id number], 155, cm, 10/16/22 12:48:00 EST, Height, 52.25, kg, 04/27/22 14:46:00 EDT, Dry Weight Start Date: 10/18/22 Status: Ordered losartan 100 mg oral tablet 1 tablet, By Mouth, Daily, # 90 tablet, 3 Refills, Maintenance, 11/22/22 16:38:00 EST, [facility]/pharmacy#7111, 155, cm, 10/16/22 12:48:00 EST, Height, 52.25, kg, 04/27/22 14:46:00 EDT, Dry Weight Start Date: 11/22/22 Status: Ordered magnesium oxide 500 mg oral tablet 1 tablet = 500 mg, By Mouth, Daily, 0 Refills, Maintenance, 06/28/18 10:06:58 EDT Start Date: 06/28/18 Status: Ordered Spiriva HandiHaler 18 mcg inhalation capsule 1 capsule, Inhalation, Daily, # 90 capsule, 4 Refills, Maintenance, 11/20/23 9:54:00 EST, [facility]/pharmacy #[id number], 155, cm, 10/12/23 16:44:00 EST, Height, 52.25, kg, 04/27/22 14:46:00 EDT, Dry Weight Start Date: 11/20/23 Status: Ordered valACYclovir 500 mg oral tablet 1, tablet, By Mouth, Daily, # 30 tablet, Refills 11, Maintenance, 12/22/22 9:50:00 EDT, Route to Pharmacy Electronically, [facility] STORE 96943, 155, cm, 10/16/22 12:48:00 EST, Height, 52.25, kg, 04/27/22 14:46:00 EDT, Dry Weight Start Date: 12/22/22 Status: Ordered Ventolin HFA 108 mcg/inh inhalation aerosol with adapter 2 puffs, Inhalation, Every 6 hours, PRN for wheezing, # 8 Gm, 11 Refills, Maintenance, 11/20/23 9:54:00 EST, Aerosol, [facility]/pharmacy #[id number], Partial fill upon patient request [...] CT measuring 4.1 cm. 2CT scan 2016 [id number]; repeat 2028 4colo 2009 nl, repeat 2019 [...] Primary Care Member Role: PCP Address: Address: [address] [place] [address]- Name: Zachary Biswas MD Position: [facility] Renal MD Member Role: Lifetime Consulting Physician Address: Address: [address] [place] [address] [address] [facility] [place] [address]- [place] Name: Moises BAH, Sridhar Position: [facility] RN Member Role: Primary Care Nurse Care Team Related Persons Name: MU CONTRERAS Address: [place] [address] Name: SHANELL COBIAN Address: [address] [address]
--- OUTSIDE RECORDS SUMMARY | 2024-07-03 12:12 | XMS_ITS | Continuity of Care Document ---
Author Organization [facility] Address [address] [place] [address]- Care Team Providers Care Mobile Heavy Equipment Operator Name Role Phone Joanna VO, Miko Guillen Primary Care Physician Encounter [facility] Date(s): 08/05/21 - 08/12/21 [facility] [address] [place] [address]- Attending Physician: Jeffry Paulson MD Admitting Physician: [...] toxoids (Td) 11 01/17/04 Given 1Location History: [facility] 2Result Comment: [06/23/2016] HIGH DOSE 3Admin Note: FLUARIX 4Admin Note: VIS GIVEN 5Admin Note: [facility] info given to patient 6Admin Note: GIANCARLO [...] 04/15/21 14:11:00 EDT, Route to Pharmacy Electronically, [facility]/pharmacy #[id number], Partial fill upon patient request if the prescription is for a schedul... Start Date: 04/15/21 Status: Ordered atorvastatin 10 mg oral tablet 0.5 tablet, By Mouth, Daily, # 45 tablet, 1 Refills, [facility] STORE 10665, 155, cm, 05/16/21 12:39:00 EDT, Height Start Date: 06/07/21 Status: Ordered budesonide-formoterol 160 mcg-4.5 mcg/inh inhalation aerosol with adapter 2, puffs, Inhalation, 2 times a day, # 30.6 each, Refills 1, Route to Pharmacy Electronically, [id number], [facility], 155, cm, 05/16/21 12:39:00 EDT, Height Start Date: 06/25/21 Status: Ordered Centrum Silver By Mouth, Daily, 0 Refills, Maintenance, 01/11/17 14:23:47 Start Date: 01/11/17 Status: Ordered cloNIDine 0.2 mg oral tablet 0.2 mg, 1, tablet, By Mouth, 2 times a day, # 60 tablet, Refills 0, Tot. Refills 0, Maintenance, 05/20/21 11:04:00 EDT, Route to Pharmacy Electronically, [facility]/pharmacy #[id number], Partial fill upon patientrequest if the prescription is for a schedule II op... Start Date: 05/20/21 Status: Ordered levothyroxine 0.05 mg oral tablet 1 tablet, By Mouth, Daily, # 90 tablet, 1 Refills, Maintenance, 03/11/21 15:34:00 EDT, [facility] STORE 20630, 158, cm, 02/01/21 9:13:00 EDT, Height Start Date: 03/11/21 Status: Ordered LORazepam 0.5 mg oral tablet 1 tablet = 0.5 mg, By Mouth, Daily, PRN for anxiety, # 24 tablet, 1 Refills, Maintenance, 08/09/20 10:16:00 EST, Tablet, [facility]/pharmacy #[id number], 158, cm, 08/09/20 9:40:00 EST, Height Start Date: 08/09/20 Status: Ordered losartan 100 mg oral tablet 1 tablet, By Mouth, Daily, # 90 tablet, 1 Refills, Maintenance, 03/19/21 21:39:00 EDT, [facility] STORE 62381, 158, cm, 03/16/21 9:06:00 EDT, Height Start [...] 7:30:00 EST, Aerosol, Route to Pharmacy Electronically, [id number], [facility]/pharmacy #[id number], 158, cm, 09/30/20 1... Start Date: 11/22/20 Stop Date: 01/21/21 Status: Ordered Spiriva HandiHaler 18 mcg inhalation capsule 1 capsule, Inhalation, Daily, # 90 capsule, 1 Refills, Maintenance, 02/22/21 14:59:00 EDT, [facility], 158, cm, 02/01/21 9:13:00 EDT, Height Start Date: 02/22/21 Status: Ordered Valtrex 500 mg oral tablet 500 mg, 1, tablet, By Mouth, Daily, # 30 tablet, Refills 11, Tot. Refills 11, Maintenance, 10/19/2111:02:00 EST, [id number] 158, cm, 09/30/20 14:41:00 EST,Height [...] oldest [Reference Range]: 1 Height 155 cm (08/05/21 11:25 AM) Weight 52.5 kg (08/05/21 11:25 AM) Pulse Rate [55-90 bpm] 64 bpm (08/05/21 11:25 AM) Body Mass Index [18.5-24.99] 21.85 (08/05/21 11:25 AM) Blood Pressure [90-138/55-84 mm Hg] 110/ 60mm Hg (08/05/21 11:25 AM) Mode of Delivery (Oxygen) Room air (08/05/21 11:25 AM) Blood pressure sites Arm, left (08/05/21 11:25 AM) Weight Obtained Via Patient/family state d (08/05/21 11:25 AM) Social History Social History Type Response Smoking Status Former smoker; Other : quit 15 years ago; entered on: 03/16/16 Sex Female
--- OUTSIDE RECORDS SUMMARY | 2024-07-03 12:12 | XMS_ITS | Continuity of Care Document ---
Author Organization [facility] Address [address] [place] [address]- Care Team Providers Care Corn Popper Name Role Phone Miko Marshall MD Primary Care Physician [facility]): 10[facility]22 - 11/15/22 [facility] [address] [place] [address] Allergies, Adverse Reactions, Alerts Substance Reaction Severity [...] FLUARIX 4Admin Note: VIS GIVEN 5Admin Note: [facility] info given to patient 6Admin Note: [...] 25.5 each, 1 Refills, Maintenance,05/25/22 15:32:00 EDT, [facility] STORE 77970, 75, INHALE 2 PUFFS 4 TIMES A DAY WHEN NEEDED FOR WHEEZING, 155, cm, 04/27/22 14:46:00 EDT, Height, 52.25, kg, 0... Start Date: 05/25/22 Status: Ordered amLODIPine 10 mg oral tablet 10 mg, 1, tablet, By Mouth, Daily, # 90 tablet, Refills 3, Tot. Refills 3, Maintenance, 09/02/21 9:38:00 EST, Route to Pharmacy Electronically, [facility]/pharmacy #[id number], Partial fill upon patient request if the prescription is for a schedule II opioid drug.... Start Date: 09/02/21 Status: Ordered atorvastatin 10 mg oral tablet 0.5 tablet, By Mouth, Daily, # 45 tablet, 3 Refills, 04/10/22 13:41:00 EDT, [facility]/pharmacy #7111, 155, cm, 04/10/22 13:29:00 EDT, Height Start Date: 04/10/22 Status: Ordered brompheniramine/dextromethorphan/pseudoephedrine 1 mg-5 mg-15 mg/5 mL oral liquid 5 mL, By Mouth, 2 times a day, PRN Cough, # 473 mL, 1 Refills, Maintenance, 10/16/22 13:18:00 EST, [facility]/pharmacy #[id number], Partial fill upon patient [...] 1, 07/17/22 13:30:00 EDT,Route to Pharmacy Electronically, [id number], [facility]/pharmacy #7111, 155, cm, 06/12/22 14:03:00 EDT, Height, 52.25, kg, 04/27/22... Start Date: 07/17/22 Status: Ordered Centrum Silver By Mouth, Daily, 0 Refills, Maintenance, 01/11/17 14:23:47 Start Date: 01/11/17 Status: Ordered cloNIDine 0.1 mg oral tablet 0.1 mg, 1, tablet, By Mouth, 2 times a day, # 180 tablet, Refills 3, Tot. Refills 3, Maintenance, 09/02/21 9:38:00 EST, Route to Pharmacy Electronically, [facility]/pharmacy #[id number], Partial fill upon patientrequest if the prescription is for a schedule II op... Start Date: 09/02/21 Status: Ordered hydroCHLOROthiazide 12.5 mg oral capsule 1 capsule = 12.5 mg, By Mouth, Daily, # 90 capsule, 3 Refills, Maintenance, 10/19/21 11:02:00 EST, Capsule, [facility]/pharmacy #7111, Partial fill upon patient request if the prescription is for a scheduleII opioid drug., 155, cm, 10/05/21 13:33:00 EST, He... Start Date: 10/19/21 Status: Ordered levothyroxine 0.05 mg oral tablet 1 tablet, By Mouth, Daily, # 90 tablet, 1 Refills, Maintenance, 09/06/22 15:47:00 EST, [facility], 155, cm, 06/12/22 14:03:00 EDT, Height, 52.25, kg, 04/27/22 14:46:00 EDT, Dry Weight Start Date: 09/06/22 Status: Ordered LORazepam 0.5 mg oral tablet 1 tablet = 0.5 mg, By Mouth, Daily, PRN for anxiety, # 24 tablet, 1 Refills, Maintenance, 10/18/22 10:48:00 EST, Tablet, [facility]/pharmacy #[id number], 155, cm, 10/16/22 12:48:00 EST, Height, 52.25, kg, 04/27/22 14:46:00 EDT, Dry Weight Start Date: 10/18/22 Status: Ordered losartan 100 mg oral tablet 1 tablet, By Mouth, Daily, # 90 tablet, 0 Refills, Maintenance, 08/15/22 10:52:00 EST, [facility], 155, cm, 06/12/22 14:03:00 EDT, Height, 52.25, kg, 04/27/22 14:46:00 EDT, Dry Weight Start Date: 08/15/22 Status: Ordered magnesium oxide 500 mg oral [...] capsule, 1 Refills, Maintenance, 05/18/22 12:36:00 EDT, [facility], Rx resent to [facility] as pt requested, 155, cm, 04/27/22 14:46:00 EDT, Height, 52.25, kg, 04/27/22 14:46:00 EDT, Dry Weight Start Date: 05/18/22 Status: Ordered tiZANidine 2 mg oral capsule 1 capsule = 2 mg, By Mouth, Every 8 hours, # 42 capsule, 0 Refills, Maintenance, 03/10/22 13:48:00 EDT, [facility]/pharmacy #7111, Partial fill upon patient request if the prescription is for a schedule II opioid drug., 155, cm, 03/10/22 13:27:00 EDT, Height Start Date: 03/10/22 Stop Date: 03/24/22 Status: Ordered valACYclovir 500 mg oral tablet 1, tablet, By Mouth, Daily, # 30 tablet, Refills 11, Route to Pharmacy Electronically, [facility] STORE 59882, 155, cm, 10/05/21 13:33:00 EST, Height Start [...] CT measuring 4.1 cm. 2CT scan 2016 [address]; repeat 2028 4colo 2009 nl, repeat 2019 [...] Personnel Name: Maria G Mendez RN Position: [facility] RN Member Role: Primary Care Nurse Name: Barby Frias Position: [facility] Outreach Member Role: Lifetime Consulting Physician Name: Miko Marshall MD Position: [facility] Primary Care Physician Member Role: PCP Address: Address: [address] [place] [address]- Name: Sridhar De Leon RN Position: [facility] RN Member Role: Primary Care Nurse Care Team Related Persons Name: MU CONTRERAS Address: [place] [address] Name: SHANELL COBIAN Address: [address] [address]
--- OUTSIDE RECORDS SUMMARY | 2024-07-03 12:12 | XMS_ITS | Continuity of Care Document ---
Author Organization [facility] Eduardo Dawson Durga lt Address [address] [place] [address]- Care Team Providers Care Api Product Manager Name Role Phone Miko Marshall MD Primary Care Physician [facility]): [facility]23 - 02/18/23 [facility] Eduardo Dawson Adult [address] [place] [address]- Attending Physician: Admtr, [id number] Admitting Physician: Admtr, [...] FLUARIX 4Admin Note: VIS GIVEN 5Admin Note: [facility] info given to patient 6Admin Note: GIANCARLO [...] 1 Refills, Maintenance,05/25/22 15:32:00 EDT, [facility], 75, INHALE 2 PUFFS 4 TIMES A DAY WHEN NEEDED FOR WHEEZING, 155, cm, 04/27/22 14:46:00 EDT, Height, 52.25, kg, 0... Start Date: 05/25/22 Status: Ordered amLODIPine 10 mg oral tablet 10 mg, 1, tablet, By Mouth, Daily, # 90 tablet, Refills 3, Tot. Refills 3, Maintenance, 11/22/22 16:38:00 EST, Route to Pharmacy Electronically, [facility]/pharmacy #7111, Partial fill upon patient request if the prescription is for a schedule II opioid drug... Start Date: 11/22/22 Status: Ordered atorvastatin 10 mg oral tablet 0.5 tablet, By Mouth, Daily, # 45 tablet, 3 Refills, 04/10/22 13:41:00 EDT, [facility]/pharmacy #7111, 155, cm, 04/10/22 13:29:00 EDT, Height Start Date: 04/10/22 Status: Ordered budesonide-formoterol 160 mcg-4.5 mcg/inh inhalation aerosol with adapter 2, puffs, Inhalation, 2 times a day, # 30.6 each, Refills 1, Tot. Refills 1, 07/17/22 13:30:00 EDT,Route to Pharmacy Electronically, [id number], [facility]/pharmacy #7111, 155, cm, 06/12/22 14:03:00 EDT, Height, [...] Refills, Maintenance, 12/28/22 7:50:00 EDT, [facility], 155, cm, 10/16/22 12:48:00 EST, Height, 52.25, kg, 04/27/22 14:46:00 EDT, Dry Weight Start Date: 12/28/22 Status: Ordered levothyroxine 0.05 mg oral tablet 1 tablet, By Mouth, Daily, # 90 tablet, 1 Refills, Maintenance, 09/06/22 15:47:00 EST, [facility] STORE 85439, 155, cm, 06/12/22 14:03:00 EDT, Height, 52.25, kg, 04/27/22 14:46:00 EDT, Dry Weight Start Date: 09/06/22 Status: Ordered LORazepam 0.5 mg oral tablet 1 tablet = 0.5 mg, By Mouth, Daily, PRN for anxiety, # 24 tablet, 1 Refills, Maintenance, 10/18/22 10:48:00 EST, Tablet, [facility]/pharmacy #7111, 155, cm, 10/16/22 12:48:00 EST, Height, 52.25, kg, 04/27/22 14:46:00 EDT, Dry Weight Start Date: 10/18/22 Status: Ordered losartan 100 mg oral tablet 1 tablet, By Mouth, Daily, # 90 tablet, 3 Refills, Maintenance, 11/22/22 16:38:00 EST, [facility]/pharmacy#7111, 155, cm, 10/16/22 12:48:00 EST, [...] 12/22/22 9:50:00 EDT, Route to Pharmacy Electronically, [facility] 88714, 155, cm, 10/16/22 12:48:00 EST, Height, 52.25, [...] Event Display: EKG Authored Date: Cardiology * Sofia Rice: PERFORM Event Display: Cardiovascular Results Scanned Authored Date: Note * Event Display: Device Check Office Visit Authored Date: * Event Display: Device Check Office Visit Authored Date: * Event Display: Device Check Office Visit Authored Date: Radiology * Event Display: CT Scan Sinus, Non- BH Authored Date: * Event Display: X-Ray Chest, Non- BH Authored Date: * Event Display: Non BH Radiology Results Authored Date: * Event Display: Non BH Radiology Results Authored Date: * Apolonia Saldaña.: PERFORM Event Display: Radiology Results Scanned Authored Date: CT Skeletal system Multisection for bone density * Event Display: Bone Density Authored Date: MG Breast Views * Event Display: MM Mammogram, Non- BH Authored Date: * Event Display: MM Mammogram, Non- BH Authored Date: * Event Display: MM Mammogram, Non- BH Authored Date: Patient Care team information Care Team Personnel Name: Maria G Mendez RN Position: [facility] RN Member Role: Primary Care Nurse Name: Barby Frias Position: [facility] Outreach Member Role: Lifetime Consulting Physician Name: Miko Marshall MD Position: [facility] Physician - Primary Care Member Role: PCP Address: Address: [address] [place] [id number]- [place] Name: Zachary Biswas MD Position: [facility] Renal MD Member Role: Lifetime Consulting Physician Address: Address: [address] [place] [address] [address] [facility] [place] [address]- [place] Name: Sridhar De Leon RN Position: [facility] RN Member Role: Primary Care Nurse Care Team Related Persons Name: MU CONTRERAS Address: [place] [address] Name: SHANELL COBIAN Address: [address] [address]
--- OUTSIDE RECORDS SUMMARY | 2024-07-03 12:13 | XMS_ITS | Continuity of Care Document ---
Author Organization [facility] Eduardo Dawson Durga lt Address [address] [place] [id number]- Care Team Providers Care Banana Expert Name Role Phone Miko Marshall MD Primary Care Physician [phone] [facility] 12[facility]23 - 01/09/24 [facility] Adult [address] [place] [address]- Allergies, Adverse Reactions, Alerts Substance Reaction Severity [...] 10 06/24/08 Give n 1Result Comment: [facility]: [id number] [facility] 3Result Comment: [06/23/2016] HIGH [...] Inhalation, Every 6 hours, use with nebulizer, # 1,080 mL, 3 Refills, Maintenance, 01/07/24 15:18:00 EDT, Solution, [facility]/pharmacy #[id number], Partial fill upon patient request if the prescription is for a schedule II opioid drug., 155, cm, 04... Start Date: 01/07/24 Stop Date: 01/01/25 Status: Ordered amLODIPine 10 mg oral tablet 1 tablet, By Mouth, Daily, # 90 tablet, 1 Refills, Maintenance, 12/22/23 8:21:00 EDT, [facility]/pharmacy #[id number], 155, cm, 10/12/23 16:44:00 EST, [...] tablet, 6 Refills, Maintenance, 06/29/23 15:09:00 EDT, [facility]/pharmacy #[id number], 155, cm, 06/29/23 14:50:00 EDT, Height, 52.25, kg, 04/27/22 14:46:00 EDT, Dry Weight Start Date: 06/29/23 Status: Ordered budesonide-formoterol 160 mcg-4.5 mcg/inh inhalation aerosol with adapter 2, puffs, Inhalation, 2 times a day, # 30.6 each, Refills 11, Tot. Refills 11, Maintenance, 11/20/23 9:54:00 EST, Route to Pharmacy Electronically, [id number], [facility]/pharmacy #[id number], 155, cm, 10/12/23 16:44:00 EST, [...] 09/28/23 13:34:00 EST, Route to Pharmacy Electronically, [facility]/pharmacy #[id number], Partial fill upon patient request if the prescription is for a schedule II o... Start Date: 09/28/23 Stop Date: 09/22/24 Status: Ordered fluticasone 50 mcg/inh nasal spray 1 sprays, Nares, Both, 2 times a day, # 16 Gm, 11 Refills, Maintenance, 06/29/23 15:10:00 EDT, Nasal [place], [facility]/pharmacy #[id number], Partial fill upon patient request if the prescription is for a scheduleII opioid drug., 1 sprays Nares, Both 2 times a day... Start Date: 06/29/23 Status: Ordered hydroCHLOROthiazide 12.5 mg oral capsule 1 capsule, By Mouth, Daily, # 90 capsule, 3 Refills, Maintenance, 12/28/22 7:50:00 EDT, [id number], 155, cm, 10/16/22 12:48:00 EST, Height, 52.25, kg, 04/27/22 14:46:00 EDT, Dry Weight Start Date: 12/28/22 Status: Ordered levothyroxine 0.05 mg oral tablet 1 tablet, By Mouth, Daily, # 90 tablet, 0 Refills, Maintenance, 11/26/23 9:51:00 EDT, [id number], 155, cm, 10/12/23 16:44:00 EST, Height, 52.25, kg, 04/27/22 14:46:00 EDT, Dry Weight Start Date: 11/26/23 Status: Ordered LORazepam 0.5 mg oral tablet 1 tablet = 0.5 mg, By Mouth, Daily, PRN for anxiety, # 24 tablet, 1 Refills, Maintenance, 12/11/23 9:46:00 EDT, Tablet, [facility]/pharmacy #[id number], 155, cm, 10/12/23 16:44:00 EST, Height, 52.25, kg, 04/27/2214:46:00 EDT, Dry Weight Start Date: 12/11/23 Status: Ordered losartan 100 mg oral tablet 1 tablet, By Mouth, Daily, # 90 tablet, 1 Refills, Maintenance, 12/22/23 8:20:00 EDT, [facility]/pharmacy #[id number], 155, cm, 10/12/23 16:44:00 EST, [...] capsule, 4 Refills, Maintenance, 11/20/23 9:54:00 EST, [facility]/pharmacy #[id number], 155, cm, 10/12/23 16:44:00 EST, Height, 52.25, kg, 04/27/22 14:46:00 EDT, Dry Weight Start Date: 11/20/23 Status: Ordered Spiriva HandiHaler 18 mcg inhalation capsule 1 capsule = 18 mcg, Inhalation, Daily, # 90 capsule, 3 Refills, Maintenance, 01/07/24 15:17:00 EDT,[facility]/pharmacy #[id number], Partial fill upon patient request if the prescription is for a schedule II opioid drug., 155, cm, 01/07/24 14:45:00 EDT, Height, 52... Start Date: 01/07/24 Stop Date: 01/01/25 Status: Ordered Symbicort 160mcg/4.5mcg Inhaler 2, puffs, Inhalation, 2 times a day, # 3 each, Refills 3, Tot. Refills 3, Maintenance, 01/07/24 15:17:00 EDT, Aerosol, Route to Pharmacy Electronically, [id number], [facility]/pharmacy #[id number], 155, cm, 01/07/24 14:45:00 EDT, Height,... Start Date: 01/07/24 Stop Date: 01/01/25 Status: Ordered valACYclovir 500 mg oral tablet 1, tablet, By Mouth, Daily, # 30 tablet, Refills 11, Maintenance, 12/22/22 9:50:00 EDT, Route to Pharmacy Electronically, [facility] STORE 25957, 155, cm, 10/16/22 12:48:00 EST, Height, 52.25, kg, 04/27/22 14:46:00 EDT, Dry Weight Start Date: 12/22/22 Status: Ordered Ventolin HFA 108 mcg/inh inhalation aerosol with adapter 2 puffs, Inhalation, Every 6 hours, PRN for wheezing, # 8 Gm, 11 Refills, Maintenance, 11/20/23 9:54:00 EST, Aerosol, [facility]/pharmacy #[id number], Partial fill upon patient request if the prescription is for a schedule II opioid drug., 155, cm, 10/12/23 16:44:... Start Date: 11/20/23 Status: Ordered Ventolin HFA 108 mcg/inh inhalation aerosol with adapter 2 puffs, Inhalation, 4 times a day, PRN for wheezing, # 3 each, 3 Refills, Maintenance, 01/07/24 15:20:00 EDT, Aerosol, [facility]/pharmacy #[id number], Partial fill upon patient [...] Personnel Name: Maria G Mendez RN Position: [facility] RN Member Role: Primary Care Nurse Name: Barby Frias Position: [facility] Outreach Member Role: Lifetime Consulting Physician Name: Miko Marshall MD Position: [facility] Physician - Primary Care Member Role: PCP Address: Address: [address] [place] [id number]- [place] Name: Zachary Biswas MD Position: [facility] Renal MD Member Role: Lifetime Consulting Physician Address: Address: [address] [place] [address] [address] [facility] [place] [address]- Name: Sridhar De Leon RN Position: [facility] RN Member Role: Primary Care Nurse Care Team Related Persons Name: MU CONTRERAS Address: [place] [address] Name: SHANELL COBIAN Address: home [address] [place] [id number]
--- OUTSIDE RECORDS SUMMARY | 2024-07-03 12:13 | XMS_ITS | Continuity of Care Document ---
Author Organization [facility] Eduardo Dawson Durga lt Address [address] [place] [address]- Care Team Providers Care Firmware Developer Name Role Phone Miko Marshall MD Primary Care Physician [facility] 07[facility]08[facility]20 - 07/15/20 [facility] Adult [address] [place] [address]- [facility] Encounter Diagnosis HTN (hypertension)(Discharge Diagnosis) - 07/08/20 Attending Physician: Miko Marshall MD Allergies, Adverse [...] 4Admin Note: VIS GIVEN 5Admin Note: [facility] info given to patient 6Admin Note: GIANCARLO 7Result Comment: OOP 8Admin Note: RUDDY 9Admin Note: Information sheet given 10Admin Note: given in clinic 11Admin Note: historical data Medications acetaminophen/butalbital/caffeine 325 mg-50 mg-40 mg oral capsule 1 capsule, By Mouth, Every 4 hours, PRN as needed, not to exceed 6 capsules/day, # 12 capsule, 0 Refills, Maintenance, 01/21/20 11:38:00 EDT, Capsule, [facility]/pharmacy #[id number], 1 capsule By Mouth Every 4 hours,PRN:as needed,Instr:not to exceed 6 capsules/da... Start Date: 01/21/20 Status: Ordered amLODIPine 5 mg oral tablet 5 mg, 1, tablet, By Mouth, Daily, # 90 tablet, Refills 3, Tot. Refills 3, Maintenance, 06/21/20 13:28:00 EDT, Route to Pharmacy Electronically, [facility]/pharmacy #[id number], 158, cm, 06/21/20 12:56:00 EDT, Height Start Date: 06/21/20 Status: Ordered atorvastatin 10 mg oral tablet 0.5, By Mouth, Daily, # 45 tablet, 1 Refills, Maintenance, 04/06/20 8:27:00 EDT, Tablet, [facility]/pharmacy #[id number], 158, cm, 03/10/20 14:43:00 EDT, Height, [...] 07/08/20 10:01:00 EDT, [id number], cm, 07/08/20 9:36:00 EDT, Height Start Date: 07/08/20 Status: Ordered levothyroxine 0.05 mg oral tablet 1 tablet, By Mouth, Daily, # 90 tablet, 1 Refills, Maintenance, 03/13/20 20:13:00 EDT, [facility]/pharmacy#7111, 158, cm, 03/10/20 14:43:00 EDT, Height, 57.6, kg, 05/21/18 14:53:00 EDT, Dry Weight Start Date: 03/13/20 Status: Ordered LORazepam 0.5 mg oral tablet 1 tablet = 0.5 mg, By Mouth, Daily, PRN for anxiety, , # 24 tablet, 1 Refills, Maintenance, 09/12/19 13:53:00 EST, Tablet, [facility]/pharmacy #[id number], 158, cm, 05/22/19 10:37:00 EDT, [...] tablet, 1 Refills, Maintenance, 03/26/20 14:17:00 EDT, [facility]/pharmacy #[id number], 158, cm, 03/10/20 14:43:00 EDT, Height, 57.6, kg, 05/21/18 14:53:00 EDT, Dry Weight Start Date: 03/26/20 Stop Date: 05/25/20 Status: Ordered ProAir HFA 90 mcg/inh inhalation aerosol with adapter 2, puffs, Inhalation, 4 times a day, PRN, NEW RX PER AFAY, # 3 each, Refills 1, Tot. Refills 1, Maintenance, 07/30/19 14:51:47 EST, Aerosol, Route to Pharmacy Electronically, [id number], [facility]/pharmacy #[id number] Start Date: 07/30/19 Status: Ordered Spiriva [...] 12:01:00 EDT, Aerosol, Route to Pharmacy Electronically, [id number], [facility]/pharmacy #[id number], 158, cm, 06/21/20 12:56:0... Start Date: 06/30/20 Status: Ordered Valtrex 500 mg oral tablet 500 mg, 1, tablet, By Mouth, Daily, # 30 tablet, Refills 11, Tot. Refills 11, Maintenance, 07/25/1811:27:07 EST, Route to Pharmacy Electronically, [id number], [facility]/pharmacy #[id number] Start Date: 07/25/18 Status: Ordered [...] CT measuring 4.1 cm. 2CT scan 2016 35436; repeat 2028 4colo 2009 nl, repeat 2019 5colo 2019 6egd 2012 no barretts 7colo 2018 8Status post laparotomy with lysis of adhesions and repair of incarcerated ventral hernia. Surgery performed March 2018. 9Thyroid peroxidase antibody positive Diagnosis Diagnosis Type Effective Dates Health Status Cl inical Service Informant HTN (hypertension) Discharge Diagnosis 07/08/20 Vital Signs Most recent to oldest [Reference Range]: 1 Height 158 cm (07/08/20 9:36 AM) Weight 60.1 kg (07/08/20 9:36 AM) Oxygen Saturation [94-100 %] 97 % (07/08/20 9:36 AM) Pulse Rate [55-90 bpm] 80 bpm (07/08/20 9:36 AM) Body Mass Index [18.5-24.99] 24.07 (07/08/20 9:36 AM) Mode of Delivery (Oxygen) Room air (07/08/20 9:36 AM) Weight Obtained Via Standing scale (07/08/20 9:36 AM) Social History Social History Type Response Smoking Status Former smoker; Other : quit 15 years ago; entered on: 03/16/16 Sex Female
--- OUTSIDE RECORDS SUMMARY | 2024-07-03 12:13 | XMS_ITS | Continuity of Care Document ---
Author Organization [facility] Eduardo Dawson Durga lt Address [address] [place] [address]- Care Team Providers Care Medical Secretary Name Role Phone Miko Marshall MD Primary Care Physician [facility] 01[facility]28[facility]24 - 02/27/24 [facility] Adult [address] [place] [address]- Allergies, Adverse Reactions, Alerts Substance Reaction Severity [...] (oldterm) 10 06/24/08 Give n 1Result Comment: [facility]: [id number] 2[facility] 3Result Comment: [06/23/2016] HIGH DOSE 4Admin Note: FLUARIX 5Admin Note: VIS GIVEN 6Admin Note: [facility] info given to patient 7Admin Note: [...] 3 Refills, Maintenance, 01/01/25 15:18:00 EDT, Solution, [facility]/pharmacy #[id number], Partial fill upon patient request if the prescription is for a schedule II opioid drug., 155,... Start Date: 01/01/25 Stop Date: 12/27/25 Status: Ordered albuterol 0.083% inhalation solution 3 mL = 2.5 mg, Inhalation, Every 6 hours, for 90 days, use with nebulizer, # 1,080 mL, 3 Refills, Hard Stop 01/01/25 15:18:00 EDT, 01/07/24 15:18:00 EDT, Solution, [facility]/pharmacy #[id number], Partial fill upon patient request if the prescription is for a sche... Start Date: 01/07/24 Stop Date: 01/01/25 Status: Ordered amLODIPine 10 mg oral tablet 1 tablet, By Mouth, Daily, # 90 tablet, 1 Refills, Maintenance, 12/22/23 8:21:00 EDT, [facility]/pharmacy #[id number], 155, cm, 10/12/23 16:44:00 EST, [...] tablet, 6 Refills, Maintenance, 06/29/23 15:09:00 EDT, [facility]/pharmacy #[id number], 155, cm, 06/29/23 14:50:00 EDT, Height, 52.25, kg, 04/27/22 14:46:00 EDT, Dry Weight Start Date: 06/29/23 Status: Ordered budesonide-formoterol 160 mcg-4.5 mcg/inh inhalation aerosol with adapter 2, puffs, Inhalation, 2 times a day, # 30.6 each, Refills 11, Tot. Refills 11, Maintenance, 11/20/23 9:54:00 EST, Route to Pharmacy Electronically, [id number], [facility]/pharmacy #[id number], 155, cm, 10/12/23 16:44:00 EST, [...] 09/28/23 13:34:00 EST, Route to Pharmacy Electronically, [facility]/pharmacy #[id number], Partial fill upon patient request if the prescription is for a schedule II o... Start Date: 09/28/23 Stop Date: 09/22/24 Status: Ordered fluticasone 50 mcg/inh nasal spray 1 sprays, Nares, Both, 2 times a day, # 16 Gm, 11 Refills, Maintenance, 06/29/23 15:10:00 EDT, Nasal [place], [facility]/pharmacy #[id number], Partial fill upon patient request if the prescription is for a scheduleII opioid drug., 1 sprays Nares, Both 2 times a day... Start Date: 06/29/23 Status: Ordered hydroCHLOROthiazide 12.5 mg oral capsule 1 capsule, By Mouth, Daily, # 90 capsule, 3 Refills, Maintenance, 12/28/22 7:50:00 EDT, [facility] STORE 69235, 155, cm, 10/16/22 12:48:00 EST, Height, 52.25, kg, 04/27/22 14:46:00 EDT, Dry Weight Start Date: 12/28/22 Status: Ordered levothyroxine 0.05 mg oral tablet 1 tablet, By Mouth, Daily, # 90 tablet, 1 Refills, Maintenance, 02/26/24 4:51:00 EDT, [facility]/pharmacy #[id number], 155, cm, 01/17/24 10:49:00 EDT, Height, 52.25, kg, 04/27/22 14:46:00 EDT, Dry Weight Start Date: 02/26/24 Status: Ordered LORazepam 0.5 mg oral tablet 1 tablet = 0.5 mg, By Mouth, Daily, PRN for anxiety, # 24 tablet, 1 Refills, Maintenance, 12/11/23 9:46:00 EDT, Tablet, [facility]/pharmacy #[id number], 155, cm, 10/12/23 16:44:00 EST, Height, 52.25, kg, 04/27/2214:46:00 EDT, Dry Weight Start Date: 12/11/23 Status: Ordered losartan 100 mg oral tablet 1 tablet, By Mouth, Daily, # 90 tablet, 1 Refills, Maintenance, 12/22/23 8:20:00 EDT, [facility]/pharmacy #[id number], 155, cm, 10/12/23 16:44:00 EST, [...] capsule, 4 Refills, Maintenance, 11/20/23 9:54:00 EST, [facility]/pharmacy #[id number], 155, cm, 10/12/23 16:44:00 EST, Height, 52.25, kg, 04/27/22 14:46:00 EDT, Dry Weight Start Date: 11/20/23 Status: Ordered Spiriva HandiHaler 18 mcg inhalation capsule 1 capsule = 18 mcg, Inhalation, Daily, # 90 capsule, 3 Refills, Maintenance, 01/07/24 15:17:00 EDT,[facility]/pharmacy #[id number], Partial fill upon patient request if the prescription is for a schedule II opioid drug., 155, cm, 01/07/24 14:45:00 EDT, Height, 52... Start Date: 01/07/24 Stop Date: 01/01/25 Status: Ordered Symbicort 160mcg/4.5mcg Inhaler 2, puffs, Inhalation, 2 times a day, # 3 each, Refills 3, Tot. Refills 3, Maintenance, 01/07/24 15:17:00 EDT, Aerosol, Route to Pharmacy Electronically, [id number], [facility]/pharmacy #[id number], 155, cm, 01/07/24 14:45:00 EDT, Height,... Start Date: 01/07/24 Stop Date: 01/01/25 Status: Ordered valACYclovir 500 mg oral tablet 1, tablet, By Mouth, Daily, # 30 tablet, Refills 11, Maintenance, 12/22/22 9:50:00 EDT, Route to Pharmacy Electronically, [facility] [address], 155, cm, 10/16/22 12:48:00 EST, Height, 52.25, kg, 04/27/22 14:46:00 EDT, Dry Weight Start Date: 12/22/22 Status: Ordered Ventolin HFA 108 mcg/inh inhalation aerosol with adapter 2 puffs, Inhalation, Every 6 hours, PRN for wheezing, # 8 Gm, 11 Refills, Maintenance, 11/20/23 9:54:00 EST, Aerosol, [facility]/pharmacy #[id number], Partial fill upon [...] Personnel Name: Maria G Mendez RN Position: [facility] RN Member Role: Primary Care Nurse Name: Barby Frias Position: [facility] Outreach Member Role: Lifetime Consulting Physician Name: Miko Marshall MD Position: [facility] Physician - Primary Care Member Role: PCP Address: Address: [address] [place] [address]- [place] Name: Zachary Biswas MD Position: [facility] Renal MD Member Role: Lifetime Consulting Physician Address: Address: [address] [facility] [place] [address]- [place] Name: Sridhar De Leon RN Position: [facility] RN Member Role: Primary Care Nurse Care Team Related Persons Name: MU CONTRERAS Address: [place] [address] Name: SHANELL COBIAN Address: home [address] [place] [id number]
--- OUTSIDE RECORDS SUMMARY | 2024-07-03 12:13 | XMS_ITS | Continuity of Care Document ---
Author Organization [facility] Samir Durga lt Address [address] [place] [address]- Care Team Providers Care Biological Technician Name Role Phone Joanna VO, Miko Guillen Primary Care Physician [facility]): [facility] - 02/08/21 [facility] Adult [address] [place] [address]- Encounter Diagnosis Bleeds easily(Discharge Diagnosis) - 02/01/21 Attending Physician: Not on Staff, Attending MD Referring Physician: Víctor ELEVATOR OPERATOR FREIGHT, Josi Downs Allergies, Adverse Reactions, Alerts Substance Reaction Severity [...] 0 Refills, Maintenance, 01/21/20 11:38:00 EDT, Capsule, [facility]/pharmacy #[id number], 1 capsule By Mouth [...] 09/01/20 11:20:00 EST, Route to Pharmacy Electronically, [facility]/pharmacy #[id number], Partial fill upon patient requestif the prescription is for a schedule II opioid tian... Start Date: 09/01/20 Status: Ordered atorvastatin 10 mg oral tablet 0.5, By Mouth, Daily, # 45 tablet, 1 Refills, Maintenance, 10/16/20 11:28:00 EST, Tablet, [facility]/pharmacy #[id number], 158, cm, 09/30/20 14:41:00 EST, Height Start Date: 10/16/20 Status: Ordered Centrum Silver By Mouth, Daily, 0 Refills, Maintenance, 01/11/17 14:23:47 Start Date: 01/11/17 Status: Ordered cloNIDine 0.1 mg oral tablet 0.1 mg, 1, tablet, By Mouth, 2 times a day, # 60 tablet, Refills 5, Tot. Refills 5, Maintenance, 09/01/20 11:20:00 EST, Route to Pharmacy Electronically, [facility]/pharmacy #[id number], Partial fill upon patientrequest if the prescription is for a schedule II op... Start Date: 09/01/20 Status: Ordered levothyroxine 0.05 mg oral tablet 1 tablet, By Mouth, Daily, # 90 tablet, 1 Refills, Maintenance, 09/07/20 9:19:00 EST, [facility]/pharmacy #[id number], 158, cm, 09/01/20 9:29:00 EST, Height Start Date: 09/07/20 Status: Ordered LORazepam 0.5 mg oral tablet 1 tablet = 0.5 mg, By Mouth, Daily, PRN for anxiety, # 24 tablet, 1 Refills, Maintenance, 08/09/20 10:16:00 EST, Tablet, [facility]/pharmacy #[id number], 158, cm, 08/09/20 9:40:00 EST, Height Start Date: 08/09/20 Status: Ordered losartan 100 mg oral tablet 1 tablet = 100 mg, By Mouth, Daily, # 30 tablet, 5 Refills, Maintenance, 09/01/20 11:21:00 EST, Tablet, [facility]/pharmacy #[id number], Partial fill upon patient [...] tablet, 1 Refills, Maintenance, 03/26/20 14:17:00 EDT, [facility]/pharmacy #[id number], 158, cm, 03/10/20 14:43:00 EDT, Height, 57.6, kg, 05/21/18 14:53:00 EDT, Dry Weight Start Date: 03/26/20 Stop Date: 05/25/20 Status: Ordered ProAir HFA 90 mcg/inh inhalation aerosol with adapter 2, puffs, Inhalation, 4 times a day, PRN, NEW RX PER AFAY, # 3 each, Refills 1, Tot. Refills 1, Maintenance, 11/22/20 7:30:00 EST, Aerosol, Route to Pharmacy Electronically, [id number], [facility]/pharmacy #[id number], 158, cm, 09/30/20 1... [...] 11:06:00 EDT, Aerosol, Route to Pharmacy Electronically, [id number], [facility]/pharmacy #[id number], 158, cm, 09/30/20 14:41:0... Start Date: 01/04/21 Status: Ordered Valtrex 500 mg oral tablet 500 mg, 1, tablet, By Mouth, Daily, # 30 tablet, Refills 11, Tot. Refills 11, Maintenance, 10/19/2111:02:00 EST, Route to Pharmacy Electronically, [facility]/pharmacy #[id number], 158, cm, 09/30/20 14:41:00 [...] CT measuring 4.1 cm. 2CT scan 2016 70273; repeat 2028 4colo 2009 nl, repeat 2019 5colo 2019 6egd 2012 no barretts 7colo 2019 8Status post laparotomy with lysis of adhesions and repair of incarcerated ventral hernia. Surgery performed March 2018. 9Thyroid peroxidase antibody positive Diagnosis Diagnosis Type Effective Dates Health Status Cl inical Service Informant Bleeds easily Discharge Diagnosis 02/01/21 Vital Signs Most recent to oldest [Reference Range]: 1 Height 158 cm (02/01/21 9:13 AM) Social History Social History Type Response Smoking Status Former smoker; Other : quit 15 years ago; entered on: 03/16/16 Sex Female
--- OUTSIDE RECORDS SUMMARY | 2024-07-03 12:13 | XMS_ITS | Continuity of Care Document ---
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 Name Role Phone Miko Marshall MD Primary Care Physician Encounter [facility] Date(s): 01/17/24 - 01/24/24 [facility] Samir Adult [address] [place] [address]- Encounter Diagnosis Alcohol intake above recommended sensible limits without complication(Discharge Diagnosis) - 01/17/24 Allergic rhinitis(Discharge Diagnosis) - 01/17/24 Ascending aortic aneurysm(Discharge Diagnosis) - 01/17/24 COPD (chronic obstructive pulmonary disease)(Discharge Diagnosis) - 01/17/24 Gastroesophageal reflux disease with hiatal hernia(Discharge Diagnosis) - 01/17/24 HTN (hypertension)(Discharge Diagnosis) - 01/17/24 Hypercholesterolemia(Discharge Diagnosis) - 01/17/24 Attending Physician: Miko Marshall MD Allergies, Adverse [...] (oldterm) 10 06/24/08 Give n 1Result Comment: [facility]: [id number] 2[facility] Comment: [06/23/2016] HIGH [...] 3 Refills, Maintenance, 01/01/25 15:18:00 EDT, Solution, [facility]/pharmacy #[id number], Partial fill upon patient request if the prescription is for a schedule II opioid drug., 155,... Start Date: 01/01/25 Stop Date: 12/27/25 Status: Ordered albuterol 0.083% inhalation solution 3 mL = 2.5 mg, Inhalation, Every 6 hours, for 90 days, use with nebulizer, # 1,080 mL, 3 Refills, Hard Stop 01/01/25 15:18:00 EDT, 01/07/24 15:18:00 EDT, Solution, [facility]/pharmacy #[id number], Partial fill upon patient request if the prescription is for a sche... Start Date: 01/07/24 Stop Date: 01/01/25 Status: Ordered amLODIPine 10 mg oral tablet 1 tablet, By Mouth, Daily, # 90 tablet, 1 Refills, Maintenance, 12/22/23 8:21:00 EDT, [facility]/pharm[facility] #[id number], 155, cm, 10/12/23 16:44:00 EST, Height, [...] tablet, 6 Refills, Maintenance, 06/29/23 15:09:00 EDT, [facility]/pharmacy #[id number], 155, cm, 06/29/23 14:50:00 EDT, Height, 52.25, kg, 04/27/22 14:46:00 EDT, Dry Weight Start Date: 06/29/23 Status: Ordered budesonide-formoterol 160 mcg-4.5 mcg/inh inhalation aerosol with adapter 2, puffs, Inhalation, 2 times a day, # 30.6 each, Refills 11, Tot. Refills 11, Maintenance, 11/20/23 9:54:00 EST, Route to Pharmacy Electronically, [id number], [facility]/pharm[facility] #[id number], 155, cm, 10/12/23 16:44:00 EST, Height, [...] 09/28/23 13:34:00 EST, Route to Pharmacy Electronically, [facility]/pharmacy #[id number], Partial fill upon patient request if the prescription is for a schedule II o... Start Date: 09/28/23 Stop Date: 09/22/24 Status: Ordered fluticasone 50 mcg/inh nasal spray 1 sprays, Nares, Both, 2 times a day, # 16 Gm, 11 Refills, Maintenance, 06/29/23 15:10:00 EDT, Nasal Reading, [facility]/pharmacy #[id number], Partial fill upon patient request if the prescription is for a scheduleII opioid drug., 1 sprays Nares, Both 2 times a day... Start Date: 06/29/23 Status: Ordered hydroCHLOROthiazide 12.5 mg oral capsule 1 capsule, By Mouth, Daily, # 90 capsule, 3 Refills, Maintenance, 12/28/22 7:50:00 EDT, [id number], 155, cm, 10/16/22 12:48:00 EST, Height, 52.25, kg, 04/27/22 14:46:00 EDT, Dry Weight Start Date: 12/28/22 Status: Ordered levothyroxine 0.05 mg oral tablet 1 tablet, By Mouth, Daily, # 90 tablet, 0 Refills, Maintenance, 11/26/23 9:51:00 EDT, [id number], 155, cm, 10/12/23 16:44:00 EST, Height, 52.25, kg, 04/27/22 14:46:00 EDT, Dry Weight Start Date: 11/26/23 Status: Ordered LORazepam 0.5 mg oral tablet 1 tablet = 0.5 mg, By Mouth, Daily, PRN for anxiety, # 24 tablet, 1 Refills, Maintenance, 12/11/23 9:46:00 EDT, Tablet, [facility] #[id number], 155, cm, 10/12/23 16:44:00 EST, Height, 52.25, kg, 04/27/2214:46:00 EDT, Dry Weight Start Date: 12/11/23 Status: Ordered losartan 100 mg oral tablet 1 tablet, By Mouth, Daily, # 90 tablet, 1 Refills, Maintenance, 12/22/23 8:20:00 EDT, [facility] #[id number], 155, cm, 10/12/23 16:44:00 EST, Height, [...] capsule, 4 Refills, Maintenance, 11/20/23 9:54:00 EST, [id number], 155, cm, 10/12/23 16:44:00 EST, Height, 52.25, kg, 04/27/22 14:46:00 EDT, Dry Weight Start Date: 11/20/23 Status: Ordered Spiriva HandiHaler 18 mcg inhalation capsule 1 capsule = 18 mcg, Inhalation, Daily, # 90 capsule, 3 Refills, Maintenance, 01/07/24 15:17:00 EDT,[id number], Partial fill upon patient request if the prescription is for a schedule II opioid drug., 155, cm, 01/07/24 14:45:00 EDT, Height, 52... Start Date: 01/07/24 Stop Date: 01/01/25 Status: Ordered Symbicort 160mcg/4.5mcg Inhaler 2, puffs, Inhalation, 2 times a day, # 3 each, Refills 3, Tot. Refills 3, Maintenance, 01/07/24 15:17:00 EDT, Aerosol, Route to Pharmacy Electronically, [id number], [facility]/pharm[facility] #[id number], 155, cm, 01/07/24 14:45:00 EDT, Height,... Start Date: 01/07/24 Stop Date: 01/01/25 Status: Ordered valACYclovir 500 mg oral tablet 1, tablet, By Mouth, Daily, # 30 tablet, Refills 11, Maintenance, 12/22/22 9:50:00 EDT, Route to Pharmacy Electronically, [id number], 155, cm, 10/16/22 12:48:00 EST, Height, 52.25, kg, 04/27/22 14:46:00 EDT, Dry Weight Start Date: 12/22/22 Status: Ordered Ventolin HFA 108 mcg/inh inhalation aerosol with adapter 2 puffs, Inhalation, Every 6 hours, PRN for wheezing, # 8 Gm, 11 Refills, Maintenance, 11/20/23 9:54:00 EST, Aerosol, [facility]/pharm[facility] #[id number], Partial fill upon patient request if the prescription is for a schedule II opioid drug., 155, cm, 10/12/23 16:44:... Start Date: 11/20/23 Status: Ordered Ventolin HFA 108 mcg/inh inhalation aerosol with adapter 2 puffs, Inhalation, 4 times a day, PRN for wheezing, # 3 each, 3 Refills, Maintenance, 01/07/24 15:20:00 EDT, Aerosol, [facility]/pharmacy #[id number], Partial fill upon patient request if [...] CT measuring 4.[address] 2[address] scan 2016 45458; repeat 2028 4colo 2008 nl, repeat 2019 5Problem added by Discern Expert 6colo 2018 7egd 2012 no barretts 8colo 2018 9Status post laparotomy with lysis of adhesions and repair of incarcerated ventral hernia. Surgery performed March 2018. 10Thyroid peroxidase antibody positive Diagnosis Diagnosis Type Effective Dates Health Status Clinical Service Informant Alcohol intake above recommended sensible limits without complication Discharge Diagnosis 01/17/24 Allergic rhinitis Discharge Diagnosis 01/17/24 Ascending aortic aneurysm Discharge Diagnosis 01/17/24 COPD (chronic obstructive pulmonary disease) Discharge Diagnosis 01/17/24 Gastroesophageal reflux disease with hiatal hernia Discharge Diagnosis 01/17/24 HTN (hypertension) Discharge Diagnosis 01/17/24 Hypercholesterolemia Discharge Diagnosis 01/17/24 Vital Signs Most recent to oldest [Reference Range]: 1 Height 155 cm (01/17/24 10:49 AM) Weight 56.0 kg (01/17/24 10:49 AM) Oxygen Saturation [94-100 %] 100 % (01/17/24 10:49 AM) Pulse Rate [55-90 bpm] 80 bpm (01/17/24 10:49 AM) Body Mass Index [18.5-24.99 kg/m2] 23.31 kg/m2 (01/17/24 10:49 AM) Blood Pressure [90-138/55-84 mm Hg] 122/ 82mm Hg (01/17/24 10:49 AM) Mode of Delivery (Oxygen) Room air (01/17/24 10:49 AM) Blood pressure sites Arm, left (01/17/24 10:49 AM) Weight Obtained Via Standing scale (01/17/24 10:49 AM) Social History Social History Type Response Smoking Status Former smoker, quit more than 30 days ago entered on: 01/07/24 Sex Female Note * Deepthi Duncan: PERFORM, SIGN, VERIFY Event Display: Patient Education/Instruction Authored Date: [id number] [facility] *BMP So Samir Richter Clinical Summary Name SATHISH MARIE Age 78 Years 1945 PCP Joanna VO, Miko Guillen PCP Visit Date 01/17/2024 10:48:00 Additional Instructions: Scheduled Appointments?? Future Appointments ?*[facility]??Gastro ?[address]??[place],??[place],??[address] ?Phone:??--?Fax:??-- ?Appt. Date:??03/03/2024?9:00 AM ?Scheduled Provider:??Gerald GRIMES, Watson Rodriguez Follow-Up Instructions ?? With: Address: When: Joanna VO, Miko Guillen In 6 months Diagnosis Aneurysm of the ascending aorta, without rupture; Gastro-esophageal reflux disease without esophagitis; Allergic rhinitis, unspecified; Chronic obstructive pulmonary disease, unspecified; Other constipation; Alcohol use, unspecified with unspecified alcohol-induced disorder; Essential (primary) hypertension; Pure hypercholesterolemia, unspecified Medications: Please continue your medications until treatment is completed or stopped by your provider. Discuss any questions related to medications with your provider. Medications to Continue with No Changes These medications were not printed or sent to your pharmacy Albuterol (albuterol 0.083% inhalation solution) 3 Milliliter Inhalation every 6 hours for 90 Days.use with nebulizer. Refills: 3. Next Dose: Albuterol (albuterol 0.083% inhalation solution) 3 Milliliter Inhalation every 6 hours for 90 Days.use with nebulizer, j44.9. Refills: 3. Next Dose: Albuterol (Ventolin HFA 108 mcg/inh inhalation aerosol with adapter) 2 puff(s) Inhalation every 6 hours as needed for wheezing. Refills: 11. Next Dose: Albuterol (Ventolin HFA 108 mcg/inh inhalation aerosol with adapter) 2 puff(s) Inhalation 4 times aday as needed for wheezing for 90 Days. Refills: 3. Next Dose: Amlodipine (amLODIPine 10 mg oral tablet) 1 tab(s) Oral Daily. Refills: 1. Next Dose: Aspirin (aspirin 81 mg oral delayed release tablet) 1 tab(s) Oral Daily. Next Dose: Atorvastatin (atorvastatin 10 mg oral tablet) 0.5 tab(s) Oral Daily. Refills: 6. Next Dose: Budesonide-Formoterol (budesonide-formoterol 160 mcg-4.5 mcg/inh inhalation aerosol with adapter) 2puff(s) Inhalation twice a day. Refills: 11. Next Dose: Budesonide-Formoterol (Symbicort 160mcg/4.5mcg Inhaler) 2 puff(s) Inhalation twice a day for 90 Days. Refills: 3. Next Dose: Chlorthalidone (chlorthalidone 25 mg oral tablet) 0.5 tab(s) Oral Daily. Next Dose: Durable Medical Equipment (Aerochamber) use with albuterol inhaler.. Refills: 0. Next Dose: Durable Medical Equipment (Compression Stockings) surgical, calf length 20-30 mm Hg. Refills: 1. Next Dose: Durable Medical Equipment (Nebulizer/Compressor) E0570 Nebulizer A7003 Neb Disp Set A7014 Neb non-Disp Filter A7005 Neb Non-Disp set A7015 Aerosol Mask A7013 Neb Disp Filter length of need lifetime 99 months for home use dx J45.909. Refills: 11. Next Dose: Famotidine (famotidine 20 mg oral tablet) 1 tab(s) Oral twice a day for 30 Days. Refills: 11. Next Dose: Fluticasone Nasal (fluticasone 50 mcg/inh nasal spray) 1 spray(s) Nares, Both twice a day. Refills:11. Next Dose: Hydrochlorothiazide (hydroCHLOROthiazide 12.5 mg oral capsule) 1 capsule Oral Daily. Refills: 3. Next Dose: Levothyroxine (levothyroxine 0.05 mg oral tablet) 1 tab(s) Oral Daily. Refills: 0. Next Dose: Lorazepam (LORazepam 0.5 mg oral tablet) 1 tab(s) Oral Daily as needed for anxiety. Refills: 1. Next Dose: Losartan (losartan 100 mg oral tablet) 1 tab(s) Oral Daily. Refills: 1. Next Dose: Magnesium Oxide (magnesium oxide 500 mg oral tablet) 1 tab(s) Oral Daily. Next Dose: Multivitamin With Minerals (Centrum Silver) Oral Daily. Next Dose: Polyethylene Glycol 3350 (MiraLax oral powder for reconstitution) 17 gram Oral Daily. Next Dose: Psyllium (Metamucil 500 mg oral capsule) Next Dose: Tiotropium (Spiriva HandiHaler 18 mcg inhalation capsule) 1 capsule Inhalation Daily for 90 Days. Refills: 3. Next Dose: Tiotropium (Spiriva HandiHaler 18 mcg inhalation capsule) 1 capsule Inhalation Daily. Refills: 4. Next Dose: ValACYclovir (valACYclovir 500 mg oral tablet) 1 tab(s) Oral Daily. Refills: 11. Next Dose: Zinc Sulfate (Zinc) 140 Milligram Oral Daily. Next Dose: Allergy Info:?? Latex; Adhesive Bandage Medications Given This Visit Future Orders ?No future orders Future Orders ?CBC? Order Date:01/17/24?- Complete within?Comprehensive Metabolic Panel? Order Date:01/17/24?- Complete within?Thyroid Panel? Order Date:01/17/24?- Complete within?Direct LDL? Order Date:01/17/24?- Complete within?Hemoglobin A1C (Monitoring)? Order Date:01/17/24?- Complete within? Vital Signs Height 155 cm Weight 56.0 kg BMI 23.31 kg/m2 Blood Pressure 122 mm Hg/82 mm Hg Temperature Pulse Rate 80 bpm Respiratory Rate 02 Sat Mode of Delivery 100 %/Room air You can now view a summary of your hospital visit from the comfort of your home through a free online portal called [employer]. [employer] is a website that allows you to securely view your medical information including discharge summary, medications and follow-up visits. ??You can alsosend a secure electronic message to your doctor???s office to request appointments, renew medications or just ask a question. You can enroll at [email or web address] or register during your next office [...] provider, you may find a [facility] provider by calling [facility] [employer] Link at [phone]. [facility], in keeping with [facility] guidance, no longer requires face masks for staff, patientsor visitors in most situations. Similar to time spent indoors at other locations, there is the chance that you were exposed to respiratory viruses during your time with us (such as flu or COVID-19).? If you develop symptoms concerning for a viral respiratory infection, please seek testing (and treatment if indicated) from your medical provider or home test kit. For information about the plan of care including goals and instructions for your diagnosis, please see the patient education orders section of this document. Patient Education Materials?? The content of this educational material or handout may have been modified, supplemented, or adapted from its original content and format to support your individualized medical care. Additional Provider Instructions: Thank you for coming in for your visit. You are currently experiencing fairly significant constipation. You have a history of chronic constipation. I would like you to take Metamucil daily going forward to hopefully better regulate your bowels. I would like you to start on MiraLAX daily until your constipation resolves and then you can stop using MiraLAX and use it as needed thereafter. In addition I would like you to have a high-fiber diet going forward. Constipation (Adult) Constipation means that you have bowel movements that are less frequent than usual. Stools often become very hard and difficult to pass. Constipation is very common. At some point in life it affects almost everyone. Since everyone's bowel habits are different, what is constipation to one person may not be to another. Your healthcare provider may do tests to diagnose constipation. It depends on what??he or she??finds when evaluating you. Symptoms of constipation include: ??? Abdominal pain ??? Bloating ??? Vomiting ??? Painful bowel movements ??? Itching, swelling, bleeding, or pain around the anus Causes Constipation can have many causes. These include: ??? Diet low in fiber ??? Too much dairy ??? Not drinking enough liquids ??? Lack of exercise or physical activity. This is especially true for older adults. ??? Changes in lifestyle or daily routine, including , aging, work, and travel ??? Frequent use or misuse of laxatives ??? Ignoring the urge to have a bowel movement or delaying it until later ??? Medicines, such as certain prescription pain medicines, iron supplements, antacids, certain antidepressants, and calcium supplements ??? Diseases like irritable bowel syndrome, bowel obstructions, stroke, diabetes, thyroid disease, Parkinson disease, hemorrhoids, and colon cancer Complications Potential complications of constipation can include: ??? Hemorrhoids ??? Rectal bleeding from hemorrhoids or anal fissures??(skin tears) ??? Hernias ??? Dependency on laxatives ??? Chronic constipation ??? Fecal impaction ??? Bowel obstruction or perforation Home care All treatment should be done after talking with your healthcare provider. This is especially true if you have another medical problems, are taking prescription medicines, or are an older adult. Treatment most often involves lifestyle changes. You may also need medicines. Your healthcare provider will tell you which will work best for you. Follow the advice below to help avoid this problem in the future. Lifestyle changes These lifestyle changes can help prevent constipation: ??? Diet. Eat a high-fiber diet, with fresh fruit and vegetables, and reduce dairy intake, meats, and processed foods ??? Fluids. It's important to get enough fluids each day. Drink plenty of water when you eat more fiber. If you are on diet that limits the amount of fluid you can have, talk about this with your healthcare provider. ??? Regular exercise. Check with your healthcare provider first. Medications Take any medicines as directed. Some laxatives are safe to use only every now and then. Others can be taken on a regular basis. Talk with your doctor or pharmacist if you have questions. Prescription pain medicines can cause constipation. If you are taking this kind of medicine, ask your healthcare provider if you should also take a stool softener. Medicines you may take to treat constipation include: ??? Fiber supplements ??? Stool softeners ??? Laxatives ??? Enemas ??? Rectal suppositories Follow-up care Follow up with your healthcare provider if symptoms don't get better in the next few days. You may need to have more tests or see a specialist. Call 911 Call 911 if any of these occur: ??? Trouble breathing ??? Stiff, rigid abdomen that is severely painful to touch ??? Confusion ??? Fainting or loss of consciousness ??? Rapid heart rate ??? Chest pain When to seek medical advice Call your healthcare provider right away if any of these occur: ??? Fever over 100.4??F (38??C) ??? Failure to resume normal bowel movements ??? Pain in your abdomen or back gets worse ??? Nausea or vomiting ??? Swelling in your abdomen ??? Blood in the stool ??? Black, tarry stool ??? Involuntary weight loss ??? Weakness ?? [id number] [employer]. [address] [place] [address], [place] [address]. All rights reserved. This information is not intended as a substitute for professional medical care. Always follow your healthcare professional's instructions. Patient Care team information Care Team Personnel Name: Maria G Mendez RN Position: [facility] RN Member Role: Primary Care Nurse Name: Barby Frias Position: [facility] Outreach Member Role: Lifetime Consulting Physician Name: Miko Marshall MD Position: [facility] Physician - Primary Care Member Role: PCP Address: Address: [address] [place] [address]- Name: Zachary Biswas MD Position: [facility] Renal MD Member Role: Lifetime Consulting Physician Address: Address: [address] [facility] [place] [place] [address]- Name: Sridhar De Leon RN Position: [facility] RN Member Role: Primary Care Nurse Care Team Related Persons Name: MU CONTRERAS Address: [place] [address] Name: SHANELL COBIAN Address: home [address] [place] [id number]
--- OUTSIDE RECORDS SUMMARY | 2024-07-03 12:13 | XMS_ITS | Continuity of Care Document ---
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 Name Role Phone Miko Marshall MD Primary Care Physician [phone] [facility]): [facility] - 11/15/22 [facility] [address] [place] [address] [place] [id number] Attending Physician: Paco Anderson Admitting Physician: AdmtrPaco Referring Physician: Admtr, Ar8 [...] FLUARIX 4Admin Note: VIS GIVEN 5Admin Note: [facility] info given to patient 6Admin Note: GIANCARLO [...] 1 Refills, Maintenance,05/25/22 15:32:00 EDT, [facility], 75, INHALE 2 PUFFS 4 TIMES A DAY WHEN NEEDED FOR WHEEZING, 155, cm, 04/27/22 14:46:00 EDT, Height, 52.25, kg, 0... Start Date: 05/25/22 Status: Ordered amLODIPine 10 mg oral tablet 10 mg, 1, tablet, By Mouth, Daily, # 90 tablet, Refills 3, Tot. Refills 3, Maintenance, 09/02/21 9:38:00 EST, Route to Pharmacy Electronically, [facility]/pharmacy #[id number], Partial fill upon patient request if the prescription is for a schedule II opioid drug.... Start Date: 09/02/21 Status: Ordered atorvastatin 10 mg oral tablet 0.5 tablet, By Mouth, Daily, # 45 tablet, 3 Refills, 04/10/22 13:41:00 EDT, [facility]/pharmacy #[id number], 155, cm, 04/10/22 13:29:00 EDT, Height Start Date: 04/10/22 Status: Ordered brompheniramine/dextromethorphan/pseudoephedrine 1 mg-5 mg-15 mg/5 mL oral liquid 5 mL, By Mouth, 2 times a day, PRN Cough, # 473 mL, 1 Refills, Maintenance, 10/16/22 13:18:00 EST, [facility]/pharmacy #[id number], Partial fill [...] 1, 07/17/22 13:30:00 EDT,Route to Pharmacy Electronically, [id number], [facility]/pharmacy #[id number], 155, cm, 06/12/22 14:03:00 EDT, Height, 52.25, kg, 04/27/22... Start Date: 07/17/22 Status: Ordered Centrum Silver By Mouth, Daily, 0 Refills, Maintenance, 01/11/17 14:23:47 Start Date: 01/11/17 Status: Ordered cloNIDine 0.1 mg oral tablet 0.1 mg, 1, tablet, By Mouth, 2 times a day, # 180 tablet, Refills 3, Tot. Refills 3, Maintenance, 09/02/21 9:38:00 EST, [facility], [id number], Partial fill upon patientrequest if the prescription is for a schedule II op... Start Date: 09/02/21 Status: Ordered hydroCHLOROthiazide 12.5 mg oral capsule 1 capsule = 12.5 mg, By Mouth, Daily, # 90 capsule, 3 Refills, Maintenance, 10/19/21 11:02:00 EST, Capsule, [facility]/pharmacy #[id number], Partial fill upon patient request if the prescription is for a scheduleII opioid drug., 155, cm, 10/05/21 13:33:00 EST, He... Start Date: 10/19/21 Status: Ordered levothyroxine 0.05 mg oral tablet 1 tablet, By Mouth, Daily, # 90 tablet, 1 Refills, Maintenance, 09/06/22 15:47:00 EST, [facility] STORE 33772, 155, cm, 06/12/22 14:03:00 EDT, Height, 52.25, kg, 04/27/22 14:46:00 EDT, Dry Weight Start Date: 09/06/22 Status: Ordered LORazepam 0.5 mg oral tablet 1 tablet = 0.5 mg, By Mouth, Daily, PRN for anxiety, # 24 tablet, 1 Refills, Maintenance, 10/18/22 10:48:00 EST, [id number], cm, 10/16/22 12:48:00 EST, Height, 52.25, kg, 04/27/22 14:46:00 EDT, Dry Weight Start Date: 10/18/22 Status: Ordered losartan 100 mg oral tablet 1 tablet, By Mouth, Daily, # 90 tablet, 0 Refills, Maintenance, 08/15/22 10:52:00 EST, [facility] STORE [facility]1505, 155, cm, 06/12/22 14:03:00 EDT, Height, 52.25, [...] capsule, 1 Refills, Maintenance, 05/18/22 12:36:00 EDT, [facility], Rx resent to [facility] as pt requested, 155, cm, 04/27/22 14:46:00 EDT, Height, 52.25, kg, 04/27/22 14:46:00 EDT, Dry Weight Start Date: 05/18/22 Status: Ordered tiZANidine 2 mg oral capsule 1 capsule = 2 mg, By Mouth, Every 8 hours, # 42 capsule, 0 Refills, Maintenance, 03/10/22 13:48:00 EDT, [facility]/pharmacy #[id number], Partial fill upon patient request if the prescription is for a schedule II opioid drug., 155, cm, 03/10/22 13:27:00 EDT, Height Start Date: 03/10/22 Stop Date: 03/24/22 Status: Ordered valACYclovir 500 mg oral tablet 1, tablet, By Mouth, Daily, # 30 tablet, Refills 11, Route to Pharmacy Electronically, [facility] STORE 58373, 155, cm, 10/05/21 13:33:00 EST, Height Start [...] CT measuring 4.1 cm. 2CT scan 2016 [id number]; repeat 2028 4colo 2009 nl, repeat 2019 [...] Personnel Name: Vanessa BAH, Maria G Position: [facility] RN Member Role: Primary Care Nurse Name: Barby Frias Position: [facility] Outreach Member Role: Lifetime Consulting Physician Name: Miko Marshall MD Position: [facility] Primary Care Physician Member Role: PCP Address: Address: [address] [place] [address]- Name: Sridhar De Leon RN Position: [facility] RN Member Role: Primary Care Nurse Care Team Related Persons Name: MU CONTRERAS Address: [place] [address] Name: SHANELL COBIAN Address: [address] [address]
--- OUTSIDE RECORDS SUMMARY | 2024-07-03 12:13 | XMS_ITS | Continuity of Care Document ---
Author Organization [facility] Eduardo Dawson Durga lt Address [address] [place] [address]- Care Team Providers Care Bleach Mixer Name Role Phone Joanna VO, Miko Guillen Primary Care Physician [phone] [facility] 06[facility] - 07/12/22 [facility] Adult [address] [place] [address]- Attending Physician: Admtr, Ar8 Admitting Physician: Admtr, [...] 1 Refills, Maintenance,05/25/22 15:32:00 EDT, [facility], 75, INHALE 2 PUFFS 4 TIMES A [...] each, Refills 1, Route to Pharmacy Electronically, [id number], [facility], 155, cm, 05/16/21 12:39:00 EDT, Height Start [...] 3 Refills, Maintenance, 10/19/21 11:02:00 EST, Capsule, [facility], Partial fill upon patient request if the prescription is for a scheduleII opioid drug., 155, cm, 10/05/21 13:33:00 EST, He... Start Date: 10/19/21 Status: Ordered levothyroxine 0.05 mg oral tablet See Instructions, TAKE 1 TABLET BY MOUTH EVERY DAY, # 90 tablet, 3 Refills, [facility], 155, cm, 04/10/22 13:29:00 EDT, Height Start [...] tablet, 1 Refills, [facility] ST[facility] 00866, 155, cm, 11/14/21 13:39:00 EST,Height Start Date: [...] capsule, 1 Refills, Maintenance, 05/18/22 12:36:00 EDT, [facility], Rx resent to [facility] as pt requested, 155, cm, 04/27/22 [...] tablet, Refills 11, Route to Pharmacy Electronically, [facility], 155, cm, 10/05/21 13:33:00 EST, Height Start [...] CT measuring 4.1 [address]. 2CT scan 2016 [id number]; repeat 2028 4colo 2009 nl, repeat 2018 [...] Name: Joanna VO, Miko Guillen Address: Address: [address] [place] [address]-
--- OUTSIDE RECORDS SUMMARY | 2024-07-03 12:13 | XMS_ITS | Continuity of Care Document ---
Author Organization [facility] Eduardo Dawson Durga lt Address [address] [place] [address]- Care Team Providers Care Stop Attacher Name Role Phone Joanna VO, Miko Guillen Primary Care Physician [facility] 06/06/21 - 07/06/21 [facility] Adult [address] [place] [address]- Allergies, Adverse Reactions, Alerts Substance Reaction Severity [...] toxoids (Td) 11 01/17/04 Given 1Location History: [facility] 2Result Comment: [06/23/2016] HIGH DOSE 3Admin Note: FLUARIX 4Admin Note: VIS GIVEN 5Admin Note: [facility] info given to patient 6Admin Note: [...] 04/15/21 14:11:00 EDT, Route to Pharmacy Electronically, [facility]/pharmacy #7111, Partial fill upon patient request if the prescription is for a schedul... Start Date: 04/15/21 Status: Ordered atorvastatin 10 mg oral tablet 0.5 tablet, By Mouth, Daily, # 45 tablet, 1 Refills, [facility], 155, cm, 05/16/21 12:39:00 EDT, Height Start Date: 06/07/21 Status: Ordered budesonide-formoterol 160 mcg-4.5 mcg/inh inhalation aerosol with adapter 2, puffs, Inhalation, 2 times a day, # 30.6 each, Refills 1, Route to Pharmacy Electronically, [id number], [facility] STORE 30289, 155, cm, 05/16/21 12:39:00 EDT, Height Start [...] 05/20/21 11:04:00 EDT, Route to Pharmacy Electronically, [facility]/pharmacy #7111, Partial fill upon patientrequest if the prescription is for a schedule II op... Start Date: 05/20/21 Status: Ordered levothyroxine 0.05 mg oral tablet 1 tablet, By Mouth, Daily, # 90 tablet, 1 Refills, Maintenance, 03/11/21 15:34:00 EDT, [facility], 158, cm, 02/01/21 9:13:00 EDT, Height Start Date: 03/11/21 Status: Ordered LORazepam 0.5 mg oral tablet 1 tablet = 0.5 mg, By Mouth, Daily, PRN for anxiety, # 24 tablet, 1 Refills, Maintenance, 08/09/20 10:16:00 EST, Tablet, [facility]/pharmacy #7111, 158, cm, 08/09/20 9:40:00 EST, Height Start Date: 08/09/20 Status: Ordered losartan 100 mg oral tablet 1 tablet, By Mouth, Daily, # 90 tablet, 1 Refills, Maintenance, 03/19/21 21:39:00 EDT, [facility], 158, cm, 03/16/21 9:06:00 EDT, Height Start [...] 7:30:00 EST, Aerosol, Route to Pharmacy Electronically, [id number], [facility]/pharmacy #7111, 158, cm, 09/30/20 1... Start Date: 11/22/20 Stop Date: 01/21/21 Status: Ordered Spiriva HandiHaler 18 mcg inhalation capsule 1 capsule, Inhalation, Daily, # 90 capsule, 1 Refills, Maintenance, 02/22/21 14:59:00 EDT, [facility], 158, cm, 02/01/21 9:13:00 EDT, Height Start Date: 02/22/21 Status: Ordered Valtrex 500 mg oral tablet 500 mg, 1, tablet, By Mouth, Daily, # 30 tablet, Refills 11, Tot. Refills 11, Maintenance, 10/19/2111:02:00 EST, Route to Pharmacy Electronically, [facility]/pharmacy #7111, 158, cm, 09/30/20 14:41:00 EST,Height [...] CT measuring 4.1 cm. 2CT scan 2015 [id number]; repeat 2028 4colo 2008 nl, repeat 2018 [...]
--- OUTSIDE RECORDS SUMMARY | 2024-07-03 12:13 | XMS_ITS | Continuity of Care Document ---
Author Organization [facility] Address [address] [place] [address]- Care Team Providers Care Gis Application Developer Name Role Phone Joanna VO, Miko Guillen Primary Care Physician [facility] 02[facility]21 - 03/03/21 [facility] [address] [place] [address]- Attending Physician: Paco Anderson Admitting Physician: AdmtrPaco [...] FLUARIX 4Admin Note: VIS GIVEN 5Admin Note: [facility] info given to patient 6Admin Note: GIANCARLO 7Result Comment: OOP 8Admin Note: [facility] 9Admin Note: Information sheet given 10Admin Note: given in clinic 11Admin Note: historical data Medications acetaminophen/butalbital/caffeine 325 mg-50 mg-40 mg oral capsule 1 capsule, By Mouth, Every 4 hours, PRN as needed, not to exceed 6 capsules/day, # 12 capsule, 0 Refills, Maintenance, 01/21/20 11:38:00 EDT, Capsule, [facility]/pharmacy #7111, 1 capsule By Mouth Every 4 [...] 02/22/21 15:00:00 EDT, Route to Pharmacy Electronically, [facility]/pharmacy #[id number], Partial fill upon patient requestif the prescription is for a schedule II opioid tian... Start Date: 02/22/21 Status: Ordered atorvastatin 10 mg oral tablet 0.5, By Mouth, Daily, # 45 tablet, 1 Refills, Maintenance, 10/16/20 11:28:00 EST, Tablet, [facility]/pharmacy #[id number], 158, cm, 09/30/20 14:41:00 EST, Height Start Date: 10/16/20 Status: Ordered Centrum Silver By Mouth, Daily, 0 Refills, Maintenance, 01/11/17 14:23:47 Start Date: 01/11/17 Status: Ordered cloNIDine 0.1 mg oral tablet 0.1 mg, 1, tablet, By Mouth, 2 times a day, # 60 tablet, Refills 5, Tot. Refills 5, Maintenance, 09/01/20 11:20:00 EST, Route to Pharmacy Electronically, [facility]/pharmacy #[id number], Partial fill upon patientrequest if the prescription is for a schedule II op... Start Date: 09/01/20 Status: Ordered levothyroxine 0.05 mg oral tablet 1 tablet, By Mouth, Daily, # 90 tablet, 1 Refills, Maintenance, 09/07/20 9:19:00 EST, [facility]/pharmacy #[id number], 158, cm, 09/01/20 9:29:00 EST, Height Start Date: 09/07/20 Status: Ordered LORazepam 0.5 mg oral tablet 1 tablet = 0.5 mg, By Mouth, Daily, PRN for anxiety, # 24 tablet, 1 Refills, Maintenance, 08/09/20 10:16:00 EST, Tablet, [facility]/pharmacy #[id number], 158, cm, 08/09/20 9:40:00 EST, Height Start Date: 08/09/20 Status: Ordered losartan 100 mg oral tablet 1 tablet = 100 mg, By Mouth, Daily, # 30 tablet, 5 Refills, Maintenance, 09/01/20 11:21:00 EST, Tablet, [facility]/pharmacy #[id number], Partial fill upon patient [...] tablet, 1 Refills, Maintenance, 03/26/20 14:17:00 EDT[facility], cm, 03/10/20 14:43:00 EDT, Height, 57.6, kg, 05/21/18 14:53:00 EDT, Dry Weight Start Date: 03/26/20 Stop Date: 05/25/20 Status: Ordered ProAir HFA 90 mcg/inh inhalation aerosol with adapter 2, puffs, Inhalation, 4 times a day, PRN, NEW RX PER AFAY, # 3 each, Refills 1, Tot. Refills 1, Maintenance, 11/22/20 7:30:00 EST, Aerosol, Route to Pharmacy Electronically, [id number], [facility] 158, cm, 09/30/20 1... Start Date: 11/22/20 Stop Date: 01/21/21 Status: Ordered Spiriva HandiHaler 18 mcg inhalation capsule 1 capsule, Inhalation, Daily, # 90 capsule, 1 Refills, Maintenance, 02/22/21 14:59:00 EDT, [facility], 158, cm, 02/01/21 9:13:00 EDT, Height Start Date: 02/22/21 Status: Ordered Symbicort 160mcg/4.5mcg Inhaler 2, puffs, Inhalation, 2 times a day, 90 DAY SUPPLY, # 3 each, Refills 1, Tot. Refills 1, Maintenance, 01/04/21 11:06:00 EDT, Aerosol, Route to Pharmacy Electronically, [id number], [facility] 158, cm, 09/30/20 14:41:0... Start Date: 01/04/21 Status: Ordered Valtrex 500 mg oral tablet 500 mg, 1, tablet, By Mouth, Daily, # 30 tablet, Refills 11, Tot. Refills 11, Maintenance, 10/19/2111:02:00 EST, [facility], [id number], 158, cm, 09/30/20 14:41:00 EST,Height Start [...] CT measuring 4.1 cm. 2CT scan 2015 18378; repeat 2028 4colo 2008 nl, repeat 2019 [...]
--- OUTSIDE RECORDS SUMMARY | 2024-07-03 12:13 | XMS_ITS | Continuity of Care Document ---
Author Organization [facility] Address [address], [address] [place] [address]- Care Team Providers Care School Transportation Supervisor Name Role Phone Miko Marshall MD Primary Care Physician Encounter 11/06/22 - 11/13/22 [facility] [address], [facility] [address] [place] [address]- Attending Physician: Miko Marshall MD Admitting Physician: Miok Marshall MD Referring Physician: Miko Marshall MD Allergies, [...] 4Admin Note: VIS GIVEN 5Admin Note: [facility] info given to patient 6Admin Note: [...] 1 Refills, Maintenance,05/25/22 15:32:00 EDT, [facility], 75, INHALE 2 PUFFS 4 TIMES A DAY WHEN NEEDED FOR WHEEZING, 155, cm, 04/27/22 14:46:00 EDT, Height, 52.25, kg, 0... Start Date: 05/25/22 Status: Ordered amLODIPine 10 mg oral tablet 10 mg, 1, tablet, By Mouth, Daily, # 90 tablet, Refills 3, Tot. Refills 3, Maintenance, 12/17/21 9:38:00 EST, Route to Pharmacy Electronically, [facility]/pharmacy #7111, Partial fill upon patient request if the prescription is for a schedule II opioid drug.... Start Date: 09/02/21 Status: Ordered atorvastatin 10 mg oral tablet 0.5 tablet, By Mouth, Daily, # 45 tablet, 3 Refills, 04/10/22 13:41:00 EDT, [facility]/pharmacy #7111, 155, cm, 04/10/22 13:29:00 EDT, Height Start Date: 04/10/22 Status: Ordered brompheniramine/dextromethorphan/pseudoephedrine 1 mg-5 mg-15 mg/5 mL oral liquid 5 mL, By Mouth, 2 times a day, PRN Cough, # 473 mL, 1 Refills, Maintenance, 10/16/22 13:18:00 EST, [facility]/pharmacy #7111, Partial fill upon patient request if the prescription is for a schedule II opioid drug., 5 mL By Mouth 2 times a day,x30 days,PRN:Co... Start Date: 10/16/22 Stop Date: 12/15/22 Status: Ordered budesonide-formoterol 160 mcg-4.5 mcg/inh inhalation aerosol with adapter 2, puffs, Inhalation, 2 times a day, # 30.6 each, Refills 1, Tot. Refills 1, 07/17/22 13:30:00 EDT,Route to Pharmacy Electronically, [id number], [facility]/pharmacy #7111, 155, cm, 06/12/22 14:03:00 EDT, Height, 52.25, kg, 04/27/22... Start Date: 07/17/22 Status: Ordered Centrum Silver By Mouth, Daily, 0 Refills, Maintenance, 01/11/17 14:23:47 Start Date: 01/11/17 Status: Ordered cloNIDine 0.1 mg oral tablet 0.1 mg, 1, tablet, By Mouth, 2 times a day, # 180 tablet, Refills 3, Tot. Refills 3, Maintenance, 09/02/21 9:38:00 EST, Route to Pharmacy Electronically, [facility]/pharmacy #7111, Partial fill upon patientrequest if the prescription is for a schedule II op... Start Date: 09/02/21 Status: Ordered hydroCHLOROthiazide 12.5 mg oral capsule 1 capsule = 12.5 mg, By Mouth, Daily, # 90 capsule, 3 Refills, Maintenance, 10/19/21 11:02:00 EST, Capsule, [facility]/pharmacy #7111, Partial fill upon patient request if the prescription is for a scheduleII opioid drug., 155, cm, 10/05/21 13:33:00 EST, He... Start Date: 10/19/21 Status: Ordered levothyroxine 0.05 mg oral tablet 1 tablet, By Mouth, Daily, # 90 tablet, 1 Refills, Maintenance, 09/06/22 15:47:00 EST, [facility], 155, cm, 06/12/22 14:03:00 EDT, Height, 52.25, kg, 04/27/22 14:46:00 EDT, Dry Weight Start Date: 09/06/22 Status: Ordered LORazepam 0.5 mg oral tablet 1 tablet = 0.5 mg, By Mouth, Daily, PRN for anxiety, # 24 tablet, 1 Refills, Maintenance, 10/18/22 10:48:00 EST, Tablet, [facility]/pharmacy #7111, 155, cm, 10/16/22 12:48:00 EST, Height, 52.25, kg, 04/27/22 14:46:00 EDT, Dry Weight Start Date: 10/18/22 Status: Ordered losartan 100 mg oral tablet 1 tablet, By Mouth, Daily, # 90 tablet, 0 Refills, Maintenance, 08/15/22 10:52:00 EST, [facility] STORE 52764, 155, cm, 06/12/22 14:03:00 EDT, Height, 52.25, [...] capsule, 1 Refills, Maintenance, 05/18/22 12:36:00 EDT, [facility], Rx resent to [facility] as pt requested, 155, cm, 04/27/22 14:46:00 EDT, Height, 52.25, kg, 04/27/22 14:46:00 EDT, Dry Weight Start Date: 05/18/22 Status: Ordered tiZANidine 2 mg oral capsule 1 capsule = 2 mg, By Mouth, Every 8 hours, # 42 capsule, 0 Refills, Maintenance, 03/10/22 13:48:00 EDT, [facility]/pharmacy #7111, Partial fill upon patient request if the prescription is for a schedule II opioid drug., 155, cm, 03/10/22 13:27:00 EDT, Height Start Date: 03/10/22 Stop Date: 03/24/22 Status: Ordered valACYclovir 500 mg oral tablet 1, tablet, By Mouth, Daily, # 30 tablet, Refills 11, Route to Pharmacy Electronically, [facility] STORE 76271, 155, cm, 10/05/21 13:33:00 EST, Height Start [...] CT measuring 4.1 [address]. 2CT scan 2016 23036; repeat 2028 4colo 2009 nl, repeat 2019 5Problem added by Discern Expert 6colo 2018 7egd 2011 no barretts 8colo 2018 9Status post laparotomy with lysis of adhesions and repair of incarcerated ventral hernia. Surgery performed March 2018. 10Thyroid peroxidase antibody positive Results Radiology Reports * Exam Date Time Procedure Performing Provider Status 11/06/22 10:16 AM MM Digital Mammo Screening Wiley Figueroa; Auth (Verified) Notes: (MM Digital Mammo Screening) Reason For Exam: Z12.31 ROUTINE SCREENING RESULT: MM Digital Mammo Screening PROCEDURE: MM Digital Mammo Screening INDICATION: Screening for breast cancer. No known palpable abnormalities. COMPARISON: Back to 11/27/2018. TECHNIQUE: Full-field digital CC and MLO 3D tomosynthesis images of both breasts were acquired. Computer-aided detection (CAD) was utilized in the interpretation of this study. DENSITY: The breast tissue contains scattered areas of fibroglandular density. FINDINGS: No suspicious masses, suspicious microcalcifications, or areas of architectural distortion are seen in either breast to suggest malignancy. IMPRESSION: No mammographic evidence of malignancy. RECOMMENDATION: Routine mammographic screening BI-RADS: 1 (Negative) Lay letter mailed to patient WSN: [id number] Ordering Physician: Miko Marshall Dictated By: Sincere Villa MD Dictated Date/Time: 11/06/22 1:02 pm Reviewed By: Sincere Villa MD Signed By: Sincere Villa MD Signed Date/Time: 11/06/22 1:02 pm Transcribed By: CSCristina Car Dumper Date/Time: 11/06/22 1:01 pm Birads: Social History Social History Type Response Smoking Status Former smoker; Other : quit 15 years ago; entered on: 03/16/16 Sex Female MG Breast Screening * BHSPowerscribe , CIS S: TRANSCRIBE Sincere Villa MD: VERIFY Event Display: Result: Authored Date: [id number] PROCEDURE: MM Digital Mammo Screening INDICATION: Screening for breast cancer. No known palpable abnormalities. COMPARISON: Back to 11/27/2018. TECHNIQUE: Full-field digital CC and MLO 3D tomosynthesis images of both breasts were acquired. Computer-aided detection (CAD) was utilized in the interpretation of this study. DENSITY: The breast tissue contains scattered areas of fibroglandular density. FINDINGS: No suspicious masses, suspicious microcalcifications, or areas of architectural distortion are seen in either breast to suggest malignancy. IMPRESSION: No mammographic evidence of malignancy. RECOMMENDATION: Routine mammographic screening BI-RADS: 1 (Negative) Lay letter mailed to patient WSN: [id number] Ordering Physician: Miko Marshall Dictated By: Sincere Villa MD Dictated Date/Time: 11/06/22 1:02 pm Reviewed By: Sincere Villa MD Signed By: Sincere Villa MD Signed Date/Time: 11/06/22 1:02 pm Transcribed By: REECE Car Dumper Date/Time: 11/06/22 1:01 pm Birads: Patient Care team information Care Team Personnel Name: Maria G Mendez RN Position: [facility] RN Member Role: Primary Care Nurse Name: Barby Frias Position: [facility] Outreach Member Role: Lifetime Consulting Physician Name: Miko Marshall MD Position: [facility] Primary Care Physician Member Role: PCP Address: Address: [address] [place] [address]- Name: Sridhar De Leon RN Position: [facility] RN Member Role: Primary Care Nurse Care Team Related Persons Name: UM CONTRERAS Address: [place] [address] Name: SHANELL COBIAN Address: [address] [address]
--- OUTSIDE RECORDS SUMMARY | 2024-07-03 12:13 | XMS_ITS | Continuity of Care Document ---
Author Organization [facility] Eduardo Dawson Durga lt Address [address] [place] [address]- Care Team Providers Care Seaman Officer Name Role Phone Joanna VO, Miko Guillen Primary Care Physician [facility] - 05/01/20 [facility] [place] Adult [address] [place] [address] Allergies, Adverse Reactions, Alerts Substance Reaction [...] Note: GIANCARLO 7Result Comment: OOP 8Admin Note: MARISELAT 9Admin Note: Information sheet given 10Admin Note: [...] 1 Refills, Maintenance, 09/12/19 13:53:00 EST, Tablet, [facility]/pharmacy #[id number], 158, cm, 05/22/19 10:37:00 EDT, Height, 57.6, kg, 05/21/18 14:53:00 EDT, Dry Weight Start Date: 09/12/19 Status: Ordered losartan 100 mg oral tablet 1 tablet = 100 mg, By Mouth, Daily, replaces valsartan, # 90 tablet, 1 Refills, Maintenance, 03/26/20 14:16:00 EDT, Tablet, [facility]/pharmacy #[id number], replaces valsartan, 158, cm, 03/10/20 [...] tablet, 1 Refills, Maintenance, 03/26/20 14:17:00 EDT, [facility]/pharmacy #[id number], 158, cm, 03/10/20 14:43:00 EDT, Height, 57.6, kg, 05/21/18 14:53:00 EDT, Dry Weight Start Date: 03/26/20 Stop Date: 05/25/20 Status: Ordered ProAir HFA 90 mcg/inh inhalation aerosol with adapter 2, puffs, Inhalation, 4 times a day, PRN, NEW RX PER [facility], # 3 each, Refills 1, Tot. Refills 1, Maintenance, 07/30/19 14:51:47 EST, Aerosol, Route to Pharmacy Electronically, [id number], [facility]/pharmacy #[id number] Start Date: 07/30/19 [...] 12:57:08 EST, Aerosol, Route to Pharmacy Electronically, [id number], [facility], 158, cm, 0... Start Date: 08/21/19 Status: Ordered Valtrex 500 mg oral tablet 500 mg, 1, tablet, By Mouth, Daily, # 30 tablet, Refills 11, Tot. Refills 11, Maintenance, 07/25/1811:27:07 EST, Route to Pharmacy Electronically, [id number], [facility]/pharmacy #[id number] Start Date: 07/25/18 Status: [...]
--- OUTSIDE RECORDS SUMMARY | 2024-07-03 12:13 | XMS_ITS | Continuity of Care Document ---
Author Organization [facility] Address [address] [place] [address]- Care Team Providers Care Fisheries Inspector Name Role Phone Miko Marshall MD Primary Care Physician [facility]): 09/27/23 - 10/27/23 [facility] [address] [place] [address]- [place] Allergies, Adverse Reactions, Alerts Substance Reaction Severity [...] (oldterm) 10 06/24/08 Give n 1Result Comment: [facility]: [id number] 2Location History: [facility] 3Result Comment: [06/23/2016] HIGH DOSE 4Admin Note: FLUARIX 5Admin Note: VIS GIVEN 6Admin Note: [facility] info given to patient 7Admin [...] 25.5 each, 1 Refills, Maintenance,05/25/22 15:32:00 EDT, [facility] STORE 78704, 75, INHALE 2 PUFFS 4 TIMES A DAY WHEN NEEDED FOR WHEEZING, 155, cm, 04/27/22 14:46:00 EDT, Height, 52.25, kg, 0... Start Date: 05/25/22 Status: Ordered amLODIPine 10 mg oral tablet 10 mg, 1, tablet, By Mouth, Daily, # 90 tablet, Refills 3, Tot. Refills 3, Maintenance, 11/22/22 16:38:00 EST, Route to Pharmacy Electronically, [facility]/pharmacy #[id number], Partial fill upon patient request [...] tablet, 6 Refills, Maintenance, 06/29/23 15:09:00 EDT, [facility]/pharmacy #[id number], 155, cm, 06/29/23 14:50:00 EDT, Height, 52.25, kg, 04/27/22 14:46:00 EDT, Dry Weight Start Date: 06/29/23 Status: Ordered budesonide-formoterol 160 mcg-4.5 mcg/inh inhalation aerosol with adapter 2, puffs, Inhalation, 2 times a day, # 30.6 each, Refills 1, Maintenance, 08/29/23 5:44:00 EST, Route to Pharmacy Electronically, [id number], [facility], 155, cm, 08/27/23 8:53:00 EST, Height, 52.25, [...] 09/28/23 13:34:00 EST, Route to Pharmacy Electronically, [facility]/pharmacy #[id number], Partial fill upon patient request if the prescription is for a schedule II o... Start Date: 09/28/23 Stop Date: 09/22/24 Status: Ordered fluticasone 50 mcg/inh nasal spray 1 sprays, Nares, Both, 2 times a day, # 16 Gm, 11 Refills, Maintenance, 06/29/23 15:10:00 EDT, Nasal [place], [facility]/pharmacy #[id number], Partial fill upon patient request if the prescription is for a scheduleII opioid drug., 1 sprays Nares, Both 2 times a day... Start Date: 06/29/23 Status: Ordered hydroCHLOROthiazide 12.5 mg oral capsule 1 capsule, By Mouth, Daily, # 90 capsule, 3 Refills, Maintenance, 12/28/22 7:50:00 EDT, [facility] STORE 76410, 155, cm, 10/16/22 12:48:00 EST, Height, 52.25, kg, 04/27/22 14:46:00 EDT, Dry Weight Start Date: 12/28/22 Status: Ordered levothyroxine 0.05 mg oral tablet 1 tablet, By Mouth, Daily, # 90 tablet, 0 Refills, Maintenance, 08/29/23 5:44:00 EST, [facility], 155, cm, 08/27/23 8:53:00 EST, Height, 52.25, kg, 04/27/22 14:46:00 EDT, Dry Weight Start Date: 08/29/23 Status: Ordered LORazepam 0.5 mg oral tablet 1 tablet = 0.5 mg, By Mouth, Daily, PRN for anxiety, # 24 tablet, 1 Refills, Maintenance, 10/18/22 10:48:00 EST, Tablet, [facility]/pharmacy #[id number], 155, cm, 10/16/22 12:48:00 EST, Height, 52.25, kg, 04/27/22 14:46:00 EDT, Dry Weight Start Date: 10/18/22 Status: Ordered losartan 100 mg oral tablet 1 tablet, By Mouth, Daily, # 90 tablet, 3 Refills, Maintenance, 11/22/22 16:38:00 EST, [facility]/pharmacy#7111, 155, cm, 10/16/22 12:48:00 EST, Height, 52.25, kg, 04/27/22 14:46:00 EDT, Dry Weight Start Date: 11/22/22 Status: Ordered magnesium oxide 500 mg oral tablet 1 tablet = 500 mg, By Mouth, Daily, 0 Refills, Maintenance, 06/28/18 10:06:58 EDT Start Date: 06/28/18 Status: Ordered Spiriva HandiHaler 18 mcg inhalation capsule 1 capsule, Inhalation, Daily, # 90 capsule, 1 Refills, Maintenance, 09/11/23 10:37:00 EST, [facility]/pharmacy #[id number], 155, cm, 08/27/23 8:53:00 EST, Height, 52.25, kg, 04/27/22 14:46:00 EDT, Dry Weight Start Date: 09/11/23 Status: Ordered valACYclovir 500 mg oral tablet 1, tablet, By Mouth, Daily, # 30 tablet, Refills 11, Maintenance, 12/22/22 9:50:00 EDT, Route to Pharmacy Electronically, [facility] STORE 59321, 155, cm, 10/16/22 12:48:00 EST, Height, 52.25, [...] Personnel Name: Maria G Mendez RN Position: [facility] RN Member Role: Primary Care Nurse Name: Barby Frias Position: [facility] Outreach Member Role: Lifetime Consulting Physician Name: Joanna VO, Miko Guillen Position: [facility] Physician - Primary Care Member Role: PCP Address: Address: [address] [place] [address]- Name: Zachary Biswas MD Position: [facility] Renal MD Member Role: Lifetime Consulting Physician Address: Address: [address] [place] [address] [address] [facility] [place] [address]- [place] Name: Sridhar De Leon RN Position: [facility] RN Member Role: Primary Care Nurse Care Team Related Persons Name: MU CONTRERAS Address: [place] [address] Name: SHANELL COBIAN Address: [address] [address]
--- OUTSIDE RECORDS SUMMARY | 2024-07-03 12:13 | XMS_ITS | Continuity of Care Document ---
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 Start Date: 04/15/21 Status: Ordered atorvastatin 10 mg oral tablet 0.5, By Mouth, Daily, # 45 tablet, 1 Refills, Maintenance, 10/16/20 11:28:00 EST, Tablet, [facility]/pharmacy #[id number], 158, cm, 09/30/20 14:41:00 [...] Refills, Maintenance, 03/11/21 15:34:00 EDT, [facility], 158, cm, 02/01/21 9:13:00 EDT, Height Start Date: 03/11/21 Status: Ordered LORazepam 0.5 mg oral tablet 1 tablet = 0.5 mg, By Mouth, Daily, PRN for anxiety, # 24 tablet, 1 Refills, Maintenance, 08/09/20 10:16:00 EST, Tablet, [id number], 158, cm, 08/09/20 9:40:00 EST, Height Start Date: 08/09/20 Status: Ordered losartan 100 mg oral tablet 1 tablet, By Mouth, Daily, # 90 tablet, 1 Refills, Maintenance, 03/19/21 21:39:00 EDT, [facility], 158, cm, 03/16/21 9:06:00 EDT, Height Start [...] 7:30:00 EST, Aerosol, Route to Pharmacy Electronically, [id number], [facility]/pharmacy #7111, 158, cm, 09/30/20 1... Start Date: 11/22/20 Stop Date: 01/21/21 Status: Ordered Spiriva HandiHaler 18 mcg inhalation capsule 1 capsule, Inhalation, Daily, # 90 capsule, 1 Refills, Maintenance, 02/22/21 14:59:00 EDT, [facility], 158, cm, 02/01/21 9:13:00 EDT, Height Start Date: 02/22/21 Status: Ordered Symbicort 160mcg/4.5mcg Inhaler 2, puffs, Inhalation, 2 times a day, 90 DAY SUPPLY, # 3 each, Refills 1, Tot. Refills 1, Maintenance, 01/04/21 11:06:00 EDT, Aerosol, Route to Pharmacy Electronically, [id number], [id number], cm, 09/30/20 14:41:0... Start Date: 01/04/21 Status: Ordered Valtrex 500 mg oral tablet 500 mg, 1, tablet, By Mouth, Daily, # 30 tablet, Refills 11, Tot. Refills 11, Maintenance, 10/19/2111:02:00 EST, Route to Pharmacy Electronically, [id number], 158, cm, 09/30/20 14:41:00 EST,Height Start [...]
--- OUTSIDE RECORDS SUMMARY | 2024-07-03 12:13 | XMS_ITS | Continuity of Care Document ---
Author Organization [facility] d[facility] Address [address] [place] [address]- Care Team Providers Care Station Examiner Name Role Phone Miko Marshall MD Primary Care Physician [facility]): [facility] - 06/22/23 [facility] [address] [place] [address]- Attending Physician: Alireza VO [facility] Referring Physician: Miko Marshall MD Allergies, Adverse [...] 4Admin Note: VIS GIVEN 5Admin Note: [facility] info given to patient 6Admin Note: [facility] [...] 1 Refills, Maintenance,05/25/22 15:32:00 EDT, [facility], 75, INHALE 2 PUFFS 4 TIMES A [...] Refills, Maintenance, 05/30/23 8:44:00 EDT, [facility], 155, cm, 02/21/23 10:28:00 EDT, Height, 52.25, kg, 04/27/22 14:46:00 EDT, Dry Weight Start Date: 05/30/23 Status: Ordered budesonide-formoterol 160 mcg-4.5 mcg/inh inhalation aerosol with adapter 2, puffs, Inhalation, 2 times a day, # 30.6 each, Refills 1, Maintenance, 02/23/23 8:46:00 EDT, Route to Pharmacy Electronically, [id number], [facility], 155, cm, 02/21/23 10:28:00 EDT, Height, 52.25, [...] Refills, Maintenance, 12/28/22 7:50:00 EDT, [facility], 155, cm, 10/16/22 12:48:00 EST, Height, 52.25, kg, 04/27/22 14:46:00 EDT, Dry Weight Start Date: 12/28/22 Status: Ordered levothyroxine 0.05 mg oral tablet 1 tablet, By Mouth, Daily, # 90 tablet, 1 Refills, Maintenance, 03/06/23 15:55:00 EDT, [facility], 155, cm, 02/21/23 10:28:00 EDT, Height, 52.25, kg, 04/27/22 14:46:00 EDT, Dry Weight Start Date: 03/06/23 Status: Ordered LORazepam 0.5 mg oral tablet 1 tablet = 0.5 mg, By Mouth, Daily, PRN for anxiety, # 24 tablet, 1 Refills, Maintenance, 10/18/22 10:48:00 EST, Tablet, [facility]/pharmacy #[id number], 155, cm, 10/16/22 12:48:00 EST, Height, 52.25, kg, 04/27/22 14:46:00 EDT, Dry Weight Start Date: 10/18/22 Status: Ordered losartan 100 mg oral tablet 1 tablet, By Mouth, Daily, # 90 tablet, 3 Refills, Maintenance, 11/22/22 16:38:00 EST, [facility]/pharmacy#7111, 155, cm, 10/16/22 12:48:00 EST, Height, 52.25, kg, 04/27/22 14:46:00 EDT, Dry Weight Start Date: 11/22/22 Status: Ordered magnesium oxide 500 mg oral tablet 1 tablet = 500 mg, By Mouth, Daily, 0 Refills, Maintenance, 06/28/18 10:06:58 EDT Start Date: 06/28/18 Status: Ordered Spiriva HandiHaler 18 mcg inhalation capsule 1 capsule, Inhalation, Daily, # 90 capsule, 1 Refills, Maintenance, 03/21/23 12:14:00 EDT, [facility], 155, cm, 02/21/23 10:28:00 EDT, Height, 52.25, kg, 04/27/22 14:46:00 EDT,Dry Weight Start Date: 03/21/23 Status: Ordered valACYclovir 500 mg oral tablet 1, tablet, By Mouth, Daily, # 30 tablet, Refills 11, Maintenance, 12/22/22 9:50:00 EDT, Route to Pharmacy Electronically, [facility] STORE 94559, 155, cm, 10/16/22 12:48:00 EST, Height, 52.25, [...] CT measuring 4.1 cm. 2CT scan 2016 [address]; repeat 2028 4colo 2008 nl, repeat 2019 [...] Personnel Name: Maria G Mendez RN Position: [facility] RN Member Role: Primary Care Nurse Name: Barby Frias Position: S Outreach Member Role: Lifetime Consulting Physician Name: Miko Marshall MD Position: [facility] Physician - Primary Care Member Role: PCP Address: Address: [address] [place] [address]- [place] Name: Zcahary Biswas MD Position: [facility] Renal MD Member Role: Lifetime Consulting Physician Address: Address: [address] [place] [address] [address] [facility] [place] [address]- [place] Name: Moises BAH, Sridhar Position: [facility] RN Member Role: Primary Care Nurse Care Team Related Persons Name: MU CONTRERAS Address: [place] [address] Name: SHANELL COBIAN Address: home [address] [place] [address]
--- OUTSIDE RECORDS SUMMARY | 2024-07-03 12:13 | XMS_ITS | Continuity of Care Document ---
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 Role Phone Miko Marshall MD Primary Care Physician [facility] 10[facility]23 - 11/15/23 [facility] Adult [address] [place] [address]- Allergies, Adverse Reactions, Alerts Substance Reaction Severity [...] 06/24/08 Give n 1Result Comment: [facility]: [id number] 2Location History: [facility] 3Result Comment: [06/23/2016] HIGH DOSE 4Admin Note: FLUARIX 5Admin Note: VIS GIVEN 6Admin Note: [facility] info given to patient 7Admin Note: [facility] [...] 16:38:00 EST, Route to Pharmacy Electronically, [facility]/pharmacy #3259, Partial fill upon patient request if the [...] 6 Refills, Maintenance, 06/29/23 15:09:00 EDT, [facility]/pharmacy #7111, 155, cm, 06/29/23 14:50:00 EDT, Height, 52.25, kg, 04/27/22 14:46:00 EDT, Dry Weight Start Date: 06/29/23 Status: Ordered budesonide-formoterol 160 mcg-4.5 mcg/inh inhalation aerosol with adapter 2, puffs, Inhalation, 2 times a day, # 30.6 each, Refills 1, Maintenance, 08/29/23 5:44:00 EST, Route to Pharmacy Electronically, [id number], [facility] STORE 53796, 155, cm, 08/27/23 8:53:00 EST, Height, 52.25, [...] 13:34:00 EST, Route to Pharmacy Electronically, [facility]/pharmacy #[id number], Partial fill upon patient request if the prescription is for a schedule II o... Start Date: 09/28/23 Stop Date: 09/22/24 Status: Ordered fluticasone 50 mcg/inh nasal spray 1 sprays, Nares, Both, 2 times a day, # 16 Gm, 11 Refills, Maintenance, 06/29/23 15:10:00 EDT, Nasal [place], [facility]/pharmacy #7111, Partial fill upon patient request if the prescription is for a scheduleII opioid drug., 1 sprays Nares, Both 2 times a day... Start Date: 06/29/23 Status: Ordered hydroCHLOROthiazide 12.5 mg oral capsule 1 capsule, By Mouth, Daily, # 90 capsule, 3 Refills, Maintenance, 12/28/22 7:50:00 EDT, [facility], 155, cm, 10/16/22 12:48:00 EST, Height, 52.25, kg, 04/27/22 14:46:00 EDT, Dry Weight Start Date: 12/28/22 Status: Ordered levothyroxine 0.05 mg oral tablet 1 tablet, By Mouth, Daily, # 90 tablet, 0 Refills, Maintenance, 08/29/23 5:44:00 EST, [facility], 155, cm, 08/27/23 8:53:00 EST, Height, 52.25, kg, 04/27/22 14:46:00 EDT, Dry Weight Start Date: 08/29/23 Status: Ordered LORazepam 0.5 mg oral tablet 1 tablet = 0.5 mg, By Mouth, Daily, PRN for anxiety, # 24 tablet, 1 Refills, Maintenance, 10/18/22 10:48:00 EST, Tablet, [facility]/pharmacy #7111, 155, cm, 10/16/22 12:48:00 EST, Height, 52.25, kg, 04/27/22 14:46:00 EDT, Dry Weight Start Date: 10/18/22 Status: Ordered losartan 100 mg oral tablet 1 tablet, By Mouth, Daily, # 90 tablet, 3 Refills, Maintenance, 11/22/22 16:38:00 EST, [facility]/pharmacy#7111, 155, cm, 10/16/22 12:48:00 EST, Height, [...] 1 Refills, Maintenance, 09/11/23 10:37:00 EST, [facility]/pharmacy #7111, 155, cm, 08/27/23 8:53:00 EST, Height, 52.25, kg, 04/27/22 14:46:00 EDT, Dry Weight Start Date: 09/11/23 Status: Ordered valACYclovir 500 mg oral tablet 1, tablet, By Mouth, Daily, # 30 tablet, Refills 11, Maintenance, 12/22/22 9:50:00 EDT, Route to Pharmacy Electronically, [facility] STORE 49134, 155, cm, 10/16/22 12:48:00 EST, Height, 52.25, kg, 04/27/22 14:46:00 EDT, Dry Weight Start Date: 12/22/22 Status: Ordered Ventolin HFA 108 mcg/inh inhalation aerosol with adapter 2 puffs, Inhalation, Every 6 hours, PRN for wheezing, # 8 Gm, 6 Refills, Maintenance, 11/09/23 9:44:00 EST, Aerosol, [facility]/pharmacy #7111, Partial fill upon patient request if the prescription is for aschedule II opioid drug., 155, cm, 10/12/23 16:44:0... Start Date: 11/09/23 Status: Ordered Zinc = 140 mg, By [...] CT measuring 4.1 cm. 2CT scan 2016 [address]; repeat 2028 4colo 2009 nl, repeat 2019 [...] Personnel Name: Maria G Mendez RN Position: [facility] RN Member Role: Primary Care Nurse Name: Barby Frias Position: [facility] Outreach Member Role: Lifetime Consulting Physician Name: Joanna VO, Miko Guillen Position: [facility] Physician - Primary Care Member Role: PCP Address: Address: [address] [place] [address]- Name: Zachary Biswas MD Position: [facility] Renal MD Member Role: Lifetime Consulting Physician Address: Address: [address] [place] [address] [address] [facility] [place] [address]- [place] Name: Sridhar De Leon RN Position: [facility] RN Member Role: Primary Care Nurse Care Team Related Persons Name: MU CONTRERAS Address: [place] [address] Name: SHANELL COBIAN Address: [address] [address]
--- OUTSIDE RECORDS SUMMARY | 2024-07-03 12:13 | XMS_ITS | Continuity of Care Document ---
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 Fire Management Officer Name Role Phone Joanna VO, Miko Guillen Primary Care Physician [facility] 06[facility]23 - 07/06/23 [facility] Samir Adult [address] [place] [address]- Encounter Diagnosis Gastroesophageal reflux disease with hiatal hernia(Discharge Diagnosis) - 06/29/23 Attending Physician: Not on Staff, Attending MD [...] (oldterm) 10 06/24/08 Give n 1Result Comment: [facility]: [id number] [facility] 3Result Comment: [06/23/2016] HIGH DOSE 4Admin Note: FLUARIX 5Admin Note: VIS GIVEN 6Admin Note: [facility] info given to patient 7Admin Note: [facility] [...] 1 Refills, Maintenance,05/25/22 15:32:00 EDT, [facility], 75, INHALE 2 PUFFS 4 TIMES A DAY WHEN NEEDED FOR WHEEZING, 155, cm, 04/27/22 14:46:00 EDT, Height, 52.25, kg, 0... Start Date: 9/8/22 Status: Ordered amLODIPine 10 mg oral tablet 10 mg, 1, tablet, By Mouth, Daily, # 90 tablet, Refills 3, Tot. Refills 3, Maintenance, 11/22/22 16:38:00 EST, Route to Pharmacy Electronically, [facility]/pharmacy #[id number], Partial fill upon patient [...] tablet, 6 Refills, Maintenance, 06/29/23 15:09:00 EDT, [facility]/pharmacy #[id number], 155, cm, 06/29/23 14:50:00 EDT, Height, 52.25, kg, 04/27/22 14:46:00 EDT, Dry Weight Start Date: 06/29/23 Status: Ordered budesonide-formoterol 160 mcg-4.5 mcg/inh inhalation aerosol with adapter 2, puffs, Inhalation, 2 times a day, # 30.6 each, Refills 1, Maintenance, 02/23/23 8:46:00 EDT, Route to Pharmacy Electronically, [id number], [facility] STORE 65301, 155, cm, 02/21/23 10:28:00 EDT, Height, 52.25, [...] 11 Refills, Maintenance, 06/29/23 15:10:00 EDT, Nasal [place], [facility]/pharmacy #[id number], Partial fill upon patient request if the prescription is for a scheduleII opioid drug., 1 sprays Nares, Both 2 times a day... Start Date: 06/29/23 Status: Ordered hydroCHLOROthiazide 12.5 mg oral capsule 1 capsule, By Mouth, Daily, # 90 capsule, 3 Refills, Maintenance, 12/28/22 7:50:00 EDT, [facility], 155, cm, 10/16/22 12:48:00 EST, Height, 52.25, kg, 04/27/22 14:46:00 EDT, Dry Weight Start Date: 12/28/22 Status: Ordered levothyroxine 0.05 mg oral tablet 1 tablet, By Mouth, Daily, # 90 tablet, 1 Refills, Maintenance, 03/06/23 15:55:00 EDT, [facility], 155, cm, 02/21/23 10:28:00 EDT, Height, 52.25, kg, 04/27/22 14:46:00 EDT, Dry Weight Start Date: 03/06/23 Status: Ordered LORazepam 0.5 mg oral tablet 1 tablet = 0.5 mg, By Mouth, Daily, PRN for anxiety, # 24 tablet, 1 Refills, Maintenance, 10/18/22 10:48:00 EST, Tablet, [facility]/pharmacy #[id number], 155, cm, 10/16/22 12:48:00 EST, Height, 52.25, kg, 04/27/22 14:46:00 EDT, Dry Weight Start Date: 10/18/22 Status: Ordered losartan 100 mg oral tablet 1 tablet, By Mouth, Daily, # 90 tablet, 3 Refills, Maintenance, 11/22/22 16:38:00 EST, [facility]/pharmacy#[id number], 155, cm, 10/16/22 12:48:00 EST, Height, 52.25, kg, 04/27/22 14:46:00 EDT, Dry Weight Start Date: 11/22/22 Status: Ordered magnesium oxide 500 mg oral tablet 1 tablet = 500 mg, By Mouth, Daily, 0 Refills, Maintenance, 06/28/18 10:06:58 EDT Start Date: 06/28/18 Status: Ordered omeprazole 20 mg oral enteric coated capsule 1 capsule = 20 mg, By Mouth, Daily, # 30 capsule, 0 Refills, Maintenance, 06/29/23 15:11:00 EDT, ECCapsule, [facility]/pharmacy #[id number], Partial fill upon patient request if the prescription is for a schedule II opioid drug., 155, cm, 06/29/23 14:50:00 EDT, H... Start Date: 06/29/23 Status: Ordered Spiriva HandiHaler 18 mcg inhalation capsule 1 capsule, Inhalation, Daily, # 90 capsule, 1 Refills, Maintenance, 03/21/23 12:14:00 EDT, [facility], 155, cm, 02/21/23 10:28:00 EDT, Height, 52.25, kg, 04/27/22 14:46:00 EDT,Dry Weight Start Date: 03/21/23 Status: Ordered valACYclovir 500 mg oral tablet 1, tablet, By Mouth, Daily, # 30 tablet, Refills 11, Maintenance, 12/22/22 9:50:00 EDT, Route to Pharmacy Electronically, [facility] STORE 24047, 155, cm, 10/16/22 12:48:00 EST, Height, 52.25, [...] CT measuring 4.1 cm. 2CT scan 2016 45971; repeat 2028 4colo 2009 nl, repeat 2018 5Problem added by Discern Expert 6colo 2018 7egd 2012 no barretts 8colo 2018 9Status post laparotomy with lysis of adhesions and repair of incarcerated ventral hernia. Surgery performed March 2018. 10Thyroid peroxidase antibody positive Diagnosis Diagnosis Type Effective Dates Health Status Clinical Service Informant Gastroesophageal reflux disease with hiatal hernia Discharge Diagnosis 06/29/23 Vital Signs Most recent to oldest [Reference Range]: 1 Height 155 cm (06/29/23 2:50 PM) Weight 56.3 kg (06/29/23 2:50 PM) Oxygen Saturation [94-100 %] 98 % (06/29/23 2:50 PM) Pulse Rate [55-90 bpm] 80 bpm (06/29/23 2:50 PM) Body Mass Index [18.5-24.99 kg/m2] 23.43 kg/m2 (06/29/23 2:50 PM) Blood Pressure [90-138/55-84 mm Hg] 128/ 78mm Hg (06/29/23 2:50 PM) Respiratory Rate [16-30 br/min] 16 br/mi n (06/29/23 2:50 PM) Temperature [96.8-100.4 DegF] 98.0 DegF (06/29/23 2:50 PM) Mode of Delivery (Oxygen) Room air (06/29/23 2:50 PM) Blood pressure sites Arm, right (06/29/23 2:50 PM) Temperature Route Oral (06/29/23 2:50 PM) Weight Obtained Via Standing scale (06/29/23 2:50 PM) Social History Social History Type Response Smoking Status Former smoker; Other : quit 15 years ago; entered on: 03/16/16 Sex Female Patient Care team information Care Team Personnel Name: Maria G Mendez RN Position: [facility] RN Member Role: Primary Care Nurse Name: Barby Frias Position: [facility] Outreach Member Role: Lifetime Consulting Physician Name: Miko Marshall MD Position: [facility] Physician - Primary Care Member Role: PCP Address: Address: [address] [place] [id number]- Name: Zachary Biswas MD Position: [facility] Renal MD Member Role: Lifetime Consulting Physician Address: Address: [address] [place] [address] [address] [facility] [place] [address]- Name: Sridhar De Leon RN Position: [facility] RN Member Role: Primary Care Nurse Care Team Related Persons Name: MU CONTRERAS Address: [place] [address] Name: SHANELL COBIAN Address: [address] [address]
--- OUTSIDE RECORDS SUMMARY | 2024-07-03 12:13 | XMS_ITS | Continuity of Care Document ---
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 info given to patient 6Admin Note: GIANCARLO 7Result Comment: OOP 8Admin Note: [facility] 9Admin Note: Information sheet given 10Admin Note: given in clinic 11Admin Note: historical data Medications acetaminophen/butalbital/caffeine 325 mg-50 mg-40 mg oral capsule 1 capsule, By Mouth, Every 4 hours, PRN as needed, not to exceed 6 capsules/day, # 12 capsule, 0 Refills, Maintenance, 01/21/20 11:38:00 EDT, Capsule, [facility]/pharmacy #[id number], 1 capsule By Mouth Every 4 hours,PRN:as needed,Instr:not to exceed 6 capsules/da... Start Date: 01/21/20 Status: Ordered amLODIPine 2.5 mg oral tablet 2.5 mg, 1, tablet, By Mouth, Daily, # 30 tablet, Refills 5, Tot. Refills 5, Maintenance, 09/01/20 11:20:00 EST, Route to Pharmacy Electronically, [facility]/pharmacy #[id number], Partial fill upon patient requestif the prescription is for a schedule II opioid tian... Start Date: 09/01/20 Status: Ordered atorvastatin 10 mg oral tablet 0.5, By Mouth, Daily, # 45 tablet, 1 Refills, Maintenance, 10/16/20 11:28:00 EST, Tablet, [facility]/pharmacy #[id number], 158, cm, 09/30/20 14:41:00 EST, Height Start Date: 10/16/20 Status: Ordered Centrum Silver By Mouth, Daily, 0 Refills, Maintenance, 01/11/17 14:23:47 Start Date: 01/11/17 Status: Ordered cloNIDine 0.1 mg oral tablet 0.1 mg, 1, tablet, By Mouth, 2 times a day, # 60 tablet, Refills 5, Tot. Refills 5, Maintenance, 09/01/20 11:20:00 EST, Route to Pharmacy Electronically, [facility]/pharmacy #[id number], Partial fill upon patientrequest if the prescription is for a schedule II op... Start Date: 09/01/20 Status: Ordered levothyroxine 0.05 mg oral tablet 1 tablet, By Mouth, Daily, # 90 tablet, 1 Refills, Maintenance, 09/07/20 9:19:00 EST, [facility]/pharmacy #[id number], 158, cm, 09/01/20 9:29:00 EST, Height Start Date: 09/07/20 Status: Ordered LORazepam 0.5 mg oral tablet 1 tablet = 0.5 mg, By Mouth, Daily, PRN for anxiety, # 24 tablet, 1 Refills, Maintenance, 08/09/20 10:16:00 EST, Tablet, [facility]/pharmacy #[id number], 158, cm, 08/09/20 9:40:00 EST, Height Start Date: 08/09/20 Status: Ordered losartan 100 mg oral tablet 1 tablet = 100 mg, By Mouth, Daily, # 30 tablet, 5 Refills, Maintenance, 09/01/20 11:21:00 EST, Tablet, [facility]/pharmacy #[id number], Partial fill upon patient request [...] tablet, 1 Refills, Maintenance, 03/26/20 14:17:00 EDT, [facility]/pharmacy #[id number], 158, cm, 03/10/20 14:43:00 EDT, Height, 57.6, kg, 05/21/18 14:53:00 EDT, Dry Weight Start Date: 03/26/20 Stop Date: 05/25/20 Status: Ordered ProAir HFA 90 mcg/inh inhalation aerosol with adapter 2, puffs, Inhalation, 4 times a day, PRN, NEW RX PER AFAY, # 3 each, Refills 1, Tot. Refills 1, Maintenance, 07/30/19 14:51:47 EST, Aerosol, Route to Pharmacy Electronically, [id number], [facility]/pharmacy #[id number] Start Date: 07/30/19 Status: Ordered [...] 12:01:00 EDT, Aerosol, Route to Pharmacy Electronically, [id number], [facility]/pharmacy #[id number], 158, cm, 06/21/20 12:56:0... Start Date: 06/30/20 Status: Ordered Valtrex 500 mg oral tablet 500 mg, 1, tablet, By Mouth, Daily, # 30 tablet, Refills 11, Tot. Refills 11, Maintenance, 07/25/1811:27:07 EST, Route to Pharmacy Electronically, [id number], [facility]/pharmacy #[id number] Start Date: 07/25/18 Status: Ordered [...] CT measuring 4.1 cm. 2CT scan 2016 [id number]; repeat 2028 4colo 2008 nl, repeat 2019 [...]
--- OUTSIDE RECORDS SUMMARY | 2024-07-03 12:13 | XMS_ITS | Continuity of Care Document ---
Author Organization [facility] Samir Durga lt Address [address] [place] [address]- Care Team Providers Care Fashion Patternmaker Name Role Phone Joanna VO, Miko Guillen Primary Care Physician [phone] [facility]): 04[facility]13/22 - 05/13/22 [facility] Adult [address] [place] [address]- Attending Physician: Admtr, Ar8 Admitting Physician: Admtr, [...] n 1Admin Note: historical data 2Location History: [facility] 3Result Comment: [06/23/2016] HIGH DOSE 4Admin Note: FLU[facility]IX 5Admin Note: VIS GIVEN 6Admin Note: CDC info given to patient 7Admin Note: GIANCARLO [...] 09/02/21 9:38:00 EST, Route to Pharmacy Electronically, [facility]/pharmacy #[id number], Partial fill upon patient request if the prescription is for a schedule II opioid drug.... Start Date: 09/02/21 Status: Ordered atorvastatin 10 mg oral tablet 0.5 tablet, By Mouth, Daily, # 45 tablet, 3 Refills, 04/10/22 13:41:00 EDT, [facility]/pharmacy #[id number], 155, cm, 04/10/22 13:29:00 EDT, Height Start Date: 04/10/22 Status: Ordered budesonide-formoterol 160 mcg-4.5 mcg/inh inhalation aerosol with adapter 2, puffs, Inhalation, 2 times a day, # 30.6 each, Refills 1, Route to Pharmacy Electronically, [id number], [facility], 155, cm, 05/16/21 12:39:00 EDT, Height Start Date: 06/25/21 Status: Ordered Centrum Silver By Mouth, Daily, 0 Refills, Maintenance, 01/11/17 14:23:47 Start Date: 01/11/17 Status: Ordered cloNIDine 0.1 mg oral tablet 0.1 mg, 1, tablet, By Mouth, 2 times a day, # 180 tablet, Refills 3, Tot. Refills 3, Maintenance, 09/02/21 9:38:00 EST, Route to Pharmacy Electronically, [facility]/pharmacy #[id number], Partial fill upon patientrequest if the prescription is for a schedule II op... Start Date: 09/02/21 Status: Ordered hydroCHLOROthiazide 12.5 mg oral capsule 1 capsule = 12.5 mg, By Mouth, Daily, # 90 capsule, 3 Refills, Maintenance, 10/19/21 11:02:00 EST, Capsule, [facility]/pharmacy #[id number], Partial fill upon patient request if the prescription is for a scheduleII opioid drug., 155, cm, 10/05/21 13:33:00 EST, He... Start Date: 10/19/21 Status: Ordered levothyroxine 0.05 mg oral tablet See Instructions, TAKE 1 TABLET BY MOUTH EVERY DAY, # 90 tablet, 3 Refills, [facility], 155, cm, 04/10/22 13:29:00 EDT, Height Start Date: 04/10/22 Status: Ordered LORazepam 0.5 mg oral tablet 1 tablet = 0.5 mg, By Mouth, Daily, PRN for anxiety, # 24 tablet, 1 Refills, Maintenance, 09/02/21 9:33:00 EST, Tablet, [facility]/pharmacy #[id number], 155, cm, 09/02/21 8:06:00 EST, Height Start Date: 09/02/21 Status: Ordered losartan 100 mg oral tablet 1 tablet, By Mouth, Daily, # 90 tablet, 1 Refills, [facility], 155, cm, 11/14/21 13:39:00 EST,Height Start Date: [...] 7:30:00 EST, Aerosol, Route to Pharmacy Electronically, [id number], [facility]/pharmacy #[id number], 158, cm, 09/30/20 1... Start Date: 11/22/20 Stop Date: 01/21/21 Status: Ordered Spiriva HandiHaler 18 mcg inhalation capsule 1 capsule, Inhalation, Daily, # 90 capsule, 1 Refills, Maintenance, 10/07/21 11:00:00 EST, [facility], 155, cm, 10/05/21 13:33:00 EST, Height Start Date: 10/07/21 Status: Ordered tiZANidine 2 mg oral capsule 1 capsule = 2 mg, By Mouth, Every 8 hours, # 42 capsule, 0 Refills, Maintenance, 03/10/22 13:48:00 EDT, [facility]/pharmacy #[id number], Partial fill upon patient request if the prescription is for a schedule II opioid drug., 155, cm, 03/10/22 13:27:00 EDT, Height Start Date: 03/10/22 Stop Date: 03/24/22 Status: Ordered valACYclovir 500 mg oral tablet 1, tablet, By Mouth, Daily, # 30 tablet, Refills 11, Route to Pharmacy Electronically, [facility] STORE 57[facility], 155, cm, 10/05/21 13:33:00 EST, Height Start [...] CT measuring 4.1 cm. 2CT scan 2016 42201; repeat 2028 4colo 2009 nl, repeat 2019 [...] 03/16/16 Sex Female Care Team Personnel Name: Miko Marshall MD Address: [address] [place] [address] [place] [address]-
--- OUTSIDE RECORDS SUMMARY | 2024-07-03 12:14 | XMS_ITS | Continuity of Care Document ---
Author Organization [facility] Eduardo Dawson Durga lt Address [address] [place] [address]- Care Team Providers Care Director Corporate Communications Name Role Phone Miko Marshall MD Primary Care Physician [phone] [facility] 01[facility]09[facility]23 - 02/08/23 [facility] Adult [address] [place] [address]- Allergies, Adverse Reactions, Alerts Substance Reaction Severity [...] 4Admin Note: VIS GIVEN 5Admin Note: [facility] info given to patient 6Admin [...] 1 Refills, Maintenance,05/25/22 15:32:00 EDT, [facility], 75, INHALE 2 PUFFS 4 TIMES A DAY WHEN NEEDED FOR WHEEZING, 155, cm, 04/27/22 14:46:00 EDT, Height, 52.25, kg, 0... Start Date: 05/25/22 Status: Ordered amLODIPine 10 mg oral tablet 10 mg, 1, tablet, By Mouth, Daily, # 90 tablet, Refills 3, Tot. Refills 3, Maintenance, 11/22/22 16:38:00 EST, Route to Pharmacy Electronically, [facility]/pharmacy #[id number], Partial fill upon patient request if the prescription is for a schedule II opioid drug... Start Date: 11/22/22 Status: Ordered atorvastatin 10 mg oral tablet 0.5 tablet, By Mouth, Daily, # 45 tablet, 3 Refills, 04/10/22 13:41:00 EDT, [facility]/pharmacy #[id number], 155, cm, 04/10/22 13:29:00 EDT, Height Start Date: 04/10/22 Status: Ordered budesonide-formoterol 160 mcg-4.5 mcg/inh inhalation aerosol with adapter 2, puffs, Inhalation, 2 times a day, # 30.6 each, Refills 1, Tot. Refills 1, 07/17/22 13:30:00 EDT,Route to Pharmacy Electronically, [id number], [facility]/pharmacy #[id number], 155, cm, 06/12/22 14:03:00 EDT, [...] Refills, Maintenance, 12/28/22 7:50:00 EDT, [facility], 155, cm, 10/16/22 12:48:00 EST, Height, 52.25, kg, 04/27/22 14:46:00 EDT, Dry Weight Start Date: 12/28/22 Status: Ordered levothyroxine 0.05 mg oral tablet 1 tablet, By Mouth, Daily, # 90 tablet, 1 Refills, Maintenance, 09/06/22 15:47:00 EST, [facility] STORE [address]002, 155, cm, 06/12/22 14:03:00 EDT, Height, 52.25, kg, 04/27/22 14:46:00 EDT, Dry Weight Start Date: 09/06/22 Status: Ordered LORazepam 0.5 mg oral tablet 1 tablet = 0.5 mg, By Mouth, Daily, PRN for anxiety, # 24 tablet, 1 Refills, Maintenance, 10/18/22 10:48:00 EST, Tablet, [facility]/pharmacy #7111, 155, cm, 10/16/22 12:48:00 EST, Height, 52.25, kg, 04/27/22 14:46:00 EDT, Dry Weight Start Date: 10/18/22 Status: Ordered losartan 100 mg oral tablet 1 tablet, By Mouth, Daily, # 90 tablet, 3 Refills, Maintenance, 11/22/22 16:38:00 EST, [facility]/pharmacy#7111, 155, cm, 10/16/22 12:48:00 EST, Height, [...] 12/22/22 9:50:00 EDT, Route to Pharmacy Electronically, [facility], 155, cm, 10/16/22 12:48:00 EST, Height, 52.25, [...] CT measuring 4.1 cm. 2CT scan 2016 19162; repeat 2028 4colo 2008 nl, repeat 2018 [...] Personnel Name: Maria G Mendez RN Position: [facility] RN Member Role: Primary Care Nurse Name: Barby Frias Position: [facility] Outreach Member Role: Lifetime Consulting Physician Name: Miko Marshall MD Position: [facility] Physician - Primary Care Member Role: PCP Address: Address: [address] [place] [address]- Name: Moises BAH, Sridhar Position: S RN Member Role: Primary Care Nurse Care Team Related Persons Name: MU CONTRERAS Address: [place] [address] Name: SHANELL COBIAN Address: [address] [address]
--- OUTSIDE RECORDS SUMMARY | 2024-07-03 12:14 | XMS_ITS | Continuity of Care Document ---
Author Organization [facility] Address [address] [place] [address]- Care Team Providers Care Experience Designer Name Role Phone Miko Marshall MD Primary Care Physician [facility] Date[facility]s): 01/11/24 - 02/10/24 [facility] [address] [id number] Allergies, Adverse Reactions, Alerts Substance Reaction [...] (oldterm) 10 06/24/08 Give n 1Result Comment: [facility]: [id number] [facility] 3Result Comment: [06/23/2016] HIGH [...] 3 Refills, Maintenance, 01/01/25 15:18:00 EDT, Solution, [facility]/pharmacy #[id number], Partial fill upon patient request if the prescription is for a schedule II opioid drug., 155,... Start Date: 01/01/25 Stop Date: 12/27/25 Status: Ordered albuterol 0.083% inhalation solution 3 mL = 2.5 mg, Inhalation, Every 6 hours, for 90 days, use with nebulizer, # 1,080 mL, 3 Refills, Hard Stop 01/01/25 15:18:00 EDT, 01/07/24 15:18:00 EDT, Solution, [facility]/pharmacy #7111, Partial fill upon patient request if the prescription is for a sche... Start Date: 01/07/24 Stop Date: 01/01/25 Status: Ordered amLODIPine 10 mg oral tablet 1 tablet, By Mouth, Daily, # 90 tablet, 1 Refills, Maintenance, 12/22/23 8:21:00 EDT, [facility]/pharmacy #[id number], 155, cm, 10/12/23 [...] tablet, 6 Refills, Maintenance, 06/29/23 15:09:00 EDT, [facility]/pharmacy #[id number], 155, cm, 06/29/23 14:50:00 EDT, Height, 52.25, kg, 04/27/22 14:46:00 EDT, Dry Weight Start Date: 06/29/23 Status: Ordered budesonide-formoterol 160 mcg-4.5 mcg/inh inhalation aerosol with adapter 2, puffs, Inhalation, 2 times a day, # 30.6 each, Refills 11, Tot. Refills 11, Maintenance, 11/20/23 9:54:00 EST, Route to Pharmacy Electronically, [id number], [facility]/pharmacy #[id number], 155, cm, 10/12/23 [...] 09/28/23 13:34:00 EST, Route to Pharmacy Electronically, [facility]/pharmacy #[id number], Partial fill upon patient request if the prescription is for a schedule II o... Start Date: 09/28/23 Stop Date: 09/22/24 Status: Ordered fluticasone 50 mcg/inh nasal spray 1 sprays, Nares, Both, 2 times a day, # 16 Gm, 11 Refills, Maintenance, 06/29/23 15:10:00 EDT, Nasal [place], [facility]/pharmacy #[id number], Partial fill upon patient request if the prescription is for a scheduleII opioid drug., 1 sprays Nares, Both 2 times a day... Start Date: 06/29/23 Status: Ordered hydroCHLOROthiazide 12.5 mg oral capsule 1 capsule, By Mouth, Daily, # 90 capsule, 3 Refills, Maintenance, 12/28/22 7:50:00 EDT, [facility], 155, cm, 10/16/22 12:48:00 EST, Height, 52.25, kg, 04/27/22 14:46:00 EDT, Dry Weight Start Date: 12/28/22 Status: Ordered levothyroxine 0.05 mg oral tablet 1 tablet, By Mouth, Daily, # 90 tablet, 0 Refills, Maintenance, 11/26/23 9:51:00 EDT, [facility], 155, cm, 10/12/23 16:44:00 EST, Height, 52.25, kg, 04/27/22 14:46:00 EDT, Dry Weight Start Date: 11/26/23 Status: Ordered LORazepam 0.5 mg oral tablet 1 tablet = 0.5 mg, By Mouth, Daily, PRN for anxiety, # 24 tablet, 1 Refills, Maintenance, 12/11/23 9:46:00 EDT, Tablet, [facility]/pharmacy #7111, 155, cm, 10/12/23 16:44:00 EST, Height, 52.25, kg, 04/27/2214:46:00 EDT, Dry Weight Start Date: 12/11/23 Status: Ordered losartan 100 mg oral tablet 1 tablet, By Mouth, Daily, # 90 tablet, 1 Refills, Maintenance, 12/22/23 8:20:00 EDT, [facility]/pharmacy #[id number], 155, cm, 10/12/23 [...] capsule, 4 Refills, Maintenance, 11/20/23 9:54:00 EST, [facility]/pharmacy #[id number], 155, cm, 10/12/23 16:44:00 EST, Height, 52.25, kg, 04/27/22 14:46:00 EDT, Dry Weight Start Date: 11/20/23 Status: Ordered Spiriva HandiHaler 18 mcg inhalation capsule 1 capsule = 18 mcg, Inhalation, Daily, # 90 capsule, 3 Refills, Maintenance, 01/07/24 15:17:00 EDT,[facility]/pharmacy #[id number], Partial fill upon patient request if the prescription is for a schedule II opioid drug., 155, cm, 01/07/24 14:45:00 EDT, Height, 52... Start Date: 01/07/24 Stop Date: 01/01/25 Status: Ordered Symbicort 160mcg/4.5mcg Inhaler 2, puffs, Inhalation, 2 times a day, # 3 each, Refills 3, Tot. Refills 3, Maintenance, 01/07/24 15:17:00 EDT, Aerosol, Route to Pharmacy Electronically, [id number], [facility]/pharmacy #7111, 155, cm, 01/07/24 14:45:00 EDT, Height,... Start Date: 01/07/24 Stop Date: 01/01/25 Status: Ordered valACYclovir 500 mg oral tablet 1, tablet, By Mouth, Daily, # 30 tablet, Refills 11, Maintenance, 12/22/22 9:50:00 EDT, Route to Pharmacy Electronically, [facility], 155, cm, 10/16/22 12:48:00 EST, Height, 52.25, kg, 04/27/22 14:46:00 EDT, Dry Weight Start Date: 12/22/22 Status: Ordered Ventolin HFA 108 mcg/inh inhalation aerosol with adapter 2 puffs, Inhalation, Every 6 hours, PRN for wheezing, # 8 Gm, 11 Refills, Maintenance, 11/20/23 9:54:00 EST, Aerosol, [facility]/pharmacy #[id number], Partial fill upon [...] CT measuring 4.1 cm. 2CT scan 2015 [id number]; repeat 2028 4colo 2008 nl, repeat 2018 [...] Personnel Name: Maria G Mendez RN Position: [facility] RN Member Role: Primary Care Nurse Name: Barby Frias Position: [facility] Outreach Member Role: Lifetime Consulting Physician Name: Miko Marshall MD Position: [facility] Physician - Primary Care Member Role: PCP Address: Address: [facility] [place] [address]- [place] Name: aZchary Biswas MD Position: [facility] Renal MD Member Role: Lifetime Consulting Physician Address: Address: [address] [facility] [place] [address]- Name: Sridhar De Leon RN Position: [facility] RN Member Role: Primary Care Nurse Care Team Related Persons Name: MU CONTRERAS Address: [place] [address] Name: SHANELL COBIAN Address: home [address] [place] [address]
--- OUTSIDE RECORDS SUMMARY | 2024-07-03 12:14 | XMS_ITS | Continuity of Care Document ---
Author Organization [facility] Eduardo Dawson Durga lt Address [address] [place] [address]- Care Team Providers Care Audiometrist Name Role Phone Miko Marshall MD Primary Care Physician [facility] Date[facility]s): 01/17/23 - 02/16/23 [facility] Adult [address] [place] [address]- Allergies, Adverse Reactions, Alerts Substance Reaction Severity [...] FLUARIX 4Admin Note: VIS GIVEN 5Admin Note: [facility] info given to patient 6Admin Note: [...] 1 Refills, Maintenance,05/25/22 15:32:00 EDT, [facility], 75, INHALE 2 PUFFS 4 TIMES A DAY WHEN NEEDED FOR WHEEZING, 155, cm, 04/27/22 14:46:00 EDT, Height, 52.25, kg, 0... Start Date: 05/25/22 Status: Ordered amLODIPine 10 mg oral tablet 10 mg, 1, tablet, By Mouth, Daily, # 90 tablet, Refills 3, Tot. Refills 3, Maintenance, 11/22/22 16:38:00 EST, Route to Pharmacy Electronically, [facility]/pharmacy #7111, Partial fill upon patient request if the prescription is for a schedule II opioid drug... Start Date: 11/22/22 Status: Ordered atorvastatin 10 mg oral tablet 0.5 tablet, By Mouth, Daily, # 45 tablet, 3 Refills, 04/10/22 13:41:00 EDT, [facility]/pharmacy #[id number], 155, cm, 04/10/22 13:29:00 EDT, Height Start Date: 04/10/22 Status: Ordered budesonide-formoterol 160 mcg-4.5 mcg/inh inhalation aerosol with adapter 2, puffs, Inhalation, 2 times a day, # 30.6 each, Refills 1, Tot. Refills 1, 07/17/22 13:30:00 EDT,Route to Pharmacy Electronically, [id number], [facility]/pharmacy #7111, 155, cm, 06/12/22 14:03:00 EDT, Height, [...] Refills, Maintenance, 12/28/22 7:50:00 EDT, [facility], 155, cm, 10/16/22 12:48:00 EST, Height, 52.25, kg, 04/27/22 14:46:00 EDT, Dry Weight Start Date: 12/28/22 Status: Ordered levothyroxine 0.05 mg oral tablet 1 tablet, By Mouth, Daily, # 90 tablet, 1 Refills, Maintenance, 09/06/22 15:47:00 EST, [facility] STORE 89178, 155, cm, 06/12/22 14:03:00 EDT, Height, 52.25, kg, 04/27/22 14:46:00 EDT, Dry Weight Start Date: 09/06/22 Status: Ordered LORazepam 0.5 mg oral tablet 1 tablet = 0.5 mg, By Mouth, Daily, PRN for anxiety, # 24 tablet, 1 Refills, Maintenance, 10/18/22 10:48:00 EST, Tablet, [facility]/pharmacy #7111, 155, cm, 10/16/22 12:48:00 EST, Height, 52.25, kg, 04/27/22 14:46:00 EDT, Dry Weight Start Date: 10/18/22 Status: Ordered losartan 100 mg oral tablet 1 tablet, By Mouth, Daily, # 90 tablet, 3 Refills, Maintenance, 11/22/22 16:38:00 EST, [facility]/pharmacy#7111, 155, cm, 10/16/22 12:48:00 EST, Height, 52.25, [...] 12/22/22 9:50:00 EDT, Route to Pharmacy Electronically, [email or web address], 155, cm, 10/16/22 12:48:00 EST, Height, 52.25, [...] CT measuring 4.1 cm. 2CT scan 2016 22607; repeat 2028 4colo 2008 nl, repeat 2018 [...] Care Member Role: PCP Address: Address: [address] [place] [address]- [place] Name: Zachary Biswas MD Position: [facility] Renal MD Member Role: Lifetime Consulting Physician Address: Address: [address] [facility] [place] [place] [address]- Name: Sridhar De Leon RN Position: [facility] RN Member Role: Primary Care Nurse Care Team Related Persons Name: MU CONTRERAS Address: [place] [address] Name: SHANELL COBIAN Address: home [address] [place] [address]
--- OUTSIDE RECORDS SUMMARY | 2024-07-03 12:14 | XMS_ITS | Continuity of Care Document ---
Author Organization [facility] Samir Durga lt Address [address] [place] [address]- Care Team Providers Care Animal Keeper Name Role Phone Miko Marshall MD Primary Care Physician [phone] Encounter [facility] Date(s): 06/29/23 - 09/13/23 [facility] Adult [address] [place] [address]- Attending Physician: Brenda Jackson NP Referring Physician: [...] 06/24/08 Give n 1Result Comment: [facility]: [id number] 2[facility] 3Result Comment: [06/23/2016] HIGH DOSE 4Admin Note: FLUARIX 5Admin Note: VIS GIVEN 6Admin Note: [facility] info given to patient 7Admin [...] 1 Refills, Maintenance,05/25/22 15:32:00 EDT, [facility], 75, INHALE 2 PUFFS 4 TIMES A DAY WHEN NEEDED FOR WHEEZING, 155, cm, 04/27/22 14:46:00 EDT, Height, 52.25, kg, 0... Start Date: 05/25/22 Status: Ordered amLODIPine 10 mg oral tablet 10 mg, 1, tablet, By Mouth, Daily, # 90 tablet, Refills 3, Tot. Refills 3, Maintenance, 11/22/22 16:38:00 EST, [id number] fill upon patient request [...] tablet, 6 Refills, Maintenance, 06/29/23 15:09:00 EDT, [facility], cm, 06/29/23 14:50:00 EDT, Height, 52.25, kg, 04/27/22 14:46:00 EDT, Dry Weight Start Date: 06/29/23 Status: Ordered budesonide-formoterol 160 mcg-4.5 mcg/inh inhalation aerosol with adapter 2, puffs, Inhalation, 2 times a day, # 30.6 each, Refills 1, Maintenance, 08/29/23 5:44:00 EST, Route to Pharmacy Electronically, [id number], [facility] STORE 75665, 155, cm, 08/27/23 8:53:00 EST, Height, 52.25, [...] 11 Refills, Maintenance, 06/29/23 15:10:00 EDT, Nasal [place], [facility]/pharmacy #7111, Partial fill upon patient request if the prescription is for a scheduleII opioid drug., 1 sprays Nares, Both 2 times a day... Start Date: 06/29/23 Status: Ordered hydroCHLOROthiazide 12.5 mg oral capsule 1 capsule, By Mouth, Daily, # 90 capsule, 3 Refills, Maintenance, 12/28/22 7:50:00 EDT, [facility], 155, cm, 10/16/22 12:48:00 EST, Height, 52.25, kg, 04/27/22 14:46:00 EDT, Dry Weight Start Date: 12/28/22 Status: Ordered levothyroxine 0.05 mg oral tablet 1 tablet, By Mouth, Daily, # 90 tablet, 0 Refills, Maintenance, 08/29/23 5:44:00 EST, [facility], 155, cm, 08/27/23 8:53:00 EST, Height, 52.25, [...] Refills, Maintenance, 08/03/23 9:45:00 EST, EC Capsule, [id number] Partial fill upon patient request if the prescription is for a scheduleII opioid drug., 155, cm, 08/02/23 13:40:00 EST, He... Start Date: 08/03/23 Status: Ordered omeprazole 20 mg oral enteric coated capsule 1 capsule = 20 mg, By Mouth, 2 times a day, ONE CAPSULE BY MOUTH TWICE A DAY, # 60 capsule, 0 Refills, Maintenance, 08/30/23 16:15:00 EST, [facility] Partial fill upon patient request if theprescription is for a schedule II opioid drug., 155... Start Date: 08/30/23 Status: Ordered Spiriva HandiHaler 18 mcg inhalation capsule 1 capsule, Inhalation, Daily, # 90 capsule, 1 Refills, Maintenance, 09/11/23 10:37:00 EST, [facility] 155, cm, 08/27/23 8:53:00 EST, Height, 52.25, kg, 04/27/22 14:46:00 EDT, Dry Weight Start Date: 09/11/23 Status: Ordered valACYclovir 500 mg oral tablet 1, tablet, By Mouth, Daily, # 30 tablet, Refills 11, Maintenance, 12/22/22 9:50:00 EDT, Route to Pharmacy Electronically, [facility] ST[facility] 18773, 155, cm, 10/16/22 12:48:00 EST, Height, 52.25, [...] CT measuring 4.1 cm. 2CT scan 2015 28709; repeat 2028 4colo 2008 nl, repeat 2018 [...] Maria G Mendez RN Position: [facility] RN Member Role: Primary Care Nurse Name: Barby Frias Position: [facility] Outreach Member Role: Lifetime Consulting Physician Name: Miko Marshall MD Position: [facility] Physician - Primary Care Member Role: PCP Address: Address: [address] [place] [address]- Name: Zachary Biswas MD Position: [facility] Renal MD Member Role: Lifetime Consulting Physician Address: Address: [address] [place] [address] [address] [facility] [place] [address]- Name: Sridhar De Leon RN Position: [facility] RN Member Role: Primary Care Nurse Care Team Related Persons Name: MU CONTRERAS Address: [place] [address] Name: SHANELL COBIAN Address: [address] [address]
--- OUTSIDE RECORDS SUMMARY | 2024-07-03 12:14 | XMS_ITS | Continuity of Care Document ---
Author Organization [facility] Samir Durga lt Address [address] [place] [address]- Care Team Providers Care Counter Clerk Name Role Phone Joanna VO, Miko Guillen Primary Care Physician [facility]s): 08/02/23 - 08/09/23 [facility] Adult [address] [place] [address]- Encounter Diagnosis COVID-19(Discharge Diagnosis) - 08/02/23 Attending Physician: Haja MENCHACA, Radha Alston Allergies, Adverse Reactions, Alerts Substance Reaction Severity [...] (oldterm) 10 06/24/08 Give n 1Result Comment: [facility]: [id number] 2[facility] 3Result Comment: [06/23/2016] HIGH DOSE 4Admin Note: FLUARIX 5Admin Note: VIS GIVEN 6Admin Note: [facility] info given to patient 7Admin Note: [...] 1 Refills, Maintenance,05/25/22 15:32:00 EDT, [facility], 75, INHALE 2 PUFFS 4 TIMES A DAY WHEN NEEDED FOR WHEEZING, 155, cm, 04/27/22 14:46:00 EDT, Height, 52.25, kg, 0... Start Date: 05/25/22 Status: Ordered amLODIPine 10 mg oral tablet 10 mg, 1, tablet, By Mouth, Daily, # 90 tablet, Refills 3, Tot. Refills 3, Maintenance, 11/22/22 16:38:00 EST, Route to Pharmacy Electronically, [facility]/pharmacy #7111, Partial fill upon patient request [...] tablet, 6 Refills, Maintenance, 06/29/23 15:09:00 EDT, [facility]/pharmacy #7111, 155, cm, 06/29/23 14:50:00 EDT, Height, 52.25, kg, 04/27/22 14:46:00 EDT, Dry Weight Start Date: 06/29/23 Status: Ordered budesonide-formoterol 160 mcg-4.5 mcg/inh inhalation aerosol with adapter 2, puffs, Inhalation, 2 times a day, # 30.6 each, Refills 1, Maintenance, 02/23/23 8:46:00 EDT, Route to Pharmacy Electronically, [id number], [facility], 155, cm, 02/21/23 10:28:00 EDT, Height, 52.25, [...] 11 Refills, Maintenance, 06/29/23 15:10:00 EDT, Nasal [place], [facility]/pharmacy #7111, Partial fill upon patient request if the prescription is for a scheduleII opioid drug., 1 sprays Nares, Both 2 times a day... Start Date: 06/29/23 Status: Ordered hydroCHLOROthiazide 12.5 mg oral capsule 1 capsule, By Mouth, Daily, # 90 capsule, 3 Refills, Maintenance, 12/28/22 7:50:00 EDT, [facility], 155, cm, 10/16/22 12:48:00 EST, Height, 52.25, kg, 04/27/22 14:46:00 EDT, Dry Weight Start Date: 12/28/22 Status: Ordered levothyroxine 0.05 mg oral tablet 1 tablet, By Mouth, Daily, # 90 tablet, 1 Refills, Maintenance, 03/06/23 15:55:00 EDT, [facility], 155, cm, 02/21/23 10:28:00 EDT, Height, 52.25, kg, 04/27/22 14:46:00 EDT, Dry Weight Start Date: 03/06/23 Status: Ordered LORazepam 0.5 mg oral tablet 1 tablet = 0.5 mg, By Mouth, Daily, PRN for anxiety, # 24 tablet, 1 Refills, Maintenance, 10/18/22 10:48:00 EST, Tablet, [facility]/pharmacy #7111, 155, cm, 10/16/22 12:48:00 EST, [...] Refills, Maintenance, 08/03/23 9:45:00 EST, EC Capsule, [facility] Partial fill upon patient request if the prescription is for a scheduleII opioid drug., 155, cm, 08/02/23 13:40:00 EST, He... Start Date: 08/03/23 Status: Ordered Spiriva HandiHaler 18 mcg inhalation capsule 1 capsule, Inhalation, Daily, # 90 capsule, 1 Refills, Maintenance, 03/21/23 12:14:00 EDT, [facility], 155, cm, 02/21/23 10:28:00 EDT, Height, 52.25, kg, 04/27/22 14:46:00 EDT,Dry Weight Start Date: 03/21/23 Status: Ordered valACYclovir 500 mg oral tablet 1, tablet, By Mouth, Daily, # 30 tablet, Refills 11, Maintenance, 12/22/22 9:50:00 EDT, Route to Pharmacy Electronically, [facility] 480[facility], 155, cm, 10/16/22 12:48:00 EST, Height, 52.25, [...] CT measuring 4.1 cm. 2CT scan 2015 [id number]; repeat 2028 4colo 2008 nl, repeat 2019 5Problem added by Discern Expert 6colo 2018 7egd 2012 no barretts 8colo 2018 9Status post laparotomy with lysis of adhesions and repair of incarcerated ventral hernia. Surgery performed March 2018. 10Thyroid peroxidase antibody positive Diagnosis Diagnosis Type Effective Dates Health Status Cl[facility] Service Informant COVID-19 Discharge Diagnosis 08/02/23 Vital Signs Most recent to oldest [Reference Range]: 1 2 Height 155 cm (08/02/23 1:30 PM) 155 cm (08/02/23 1:11 PM) Oxygen Saturation [94-100 %] 88 % *L* (08/02/23 1:30 PM) 96 % (08/02/23 1:11 PM) Temperature [96.8-100.4 DegF] 96.1 DegF *L* (08/02/23 1:11 PM) Blood pressure sites Arm, right (08/02/23 1:11 PM) Temperature Route Oral (08/02/23 1:11 PM) Social History Social History Type Response Smoking Status Former smoker; Other : quit 15 years ago; entered on: 03/16/16 Sex Female Patient Care team information Care Team Personnel Name: Maria G Mendez RN Position: [facility] RN Member Role: Primary Care Nurse Name: Barby Frias Position: [facility] Outreach Member Role: Lifetime Consulting Physician Name: Miko Marshall MD Position: [facility] Physician - Primary Care Member Role: PCP Address: Address: [address] [place] [address]- Name: Zachary Biswas MD Position: [facility] Renal MD Member Role: Lifetime Consulting Physician Address: Address: [address] [place] [address] [address] [facility] [place] [address]- [place] Name: Moises BAH, Sridhar Position: S RN Member Role: Primary Care Nurse Care Team Related Persons Name: MU CONTRERAS Address: [place] [address] Name: SHANELL COBIAN Address: [address] [address]
--- OUTSIDE RECORDS SUMMARY | 2024-07-03 12:14 | XMS_ITS | Continuity of Care Document ---
Author Organization [facility] Address [address] [place] [address]- Care Team Providers Care Slitter And Rewinder Machine Operator Name Role Phone Joanna VO, Miko Guillen Primary Care Physician [facility] 12[facility]20 - 01/01/21 [facility] [address] [place] [address]- Attending Physician: Paco Anderson Admitting Physician: [facility] Referring Physician: [facility] Allergies, Adverse Reactions, Alerts [...] Refills, Maintenance, 01/21/20 11:38:00 EDT, Capsule, [facility]/pharmacy #7111, 1 capsule By Mouth Every [...] 11:20:00 EST, Route to Pharmacy Electronically, [facility]/pharmacy #7111, Partial fill upon patient requestif the prescription is for a schedule II opioid tian... Start Date: 09/01/20 Status: Ordered atorvastatin 10 mg oral tablet 0.5, By Mouth, Daily, # 45 tablet, 1 Refills, Maintenance, 10/16/20 11:28:00 EST, Tablet, [facility]/pharmacy #7111, 158, cm, 09/30/20 14:41:00 EST, Height Start Date: 10/16/20 Status: Ordered Centrum Silver By Mouth, Daily, 0 Refills, Maintenance, 01/11/17 14:23:47 Start Date: 01/11/17 Status: Ordered cloNIDine 0.1 mg oral tablet 0.1 mg, 1, tablet, By Mouth, 2 times a day, # 60 tablet, Refills 5, Tot. Refills 5, Maintenance, 09/01/20 11:20:00 EST, [facility] fill upon patientrequest if the prescription is for a schedule II op... Start Date: 09/01/20 Status: Ordered levothyroxine 0.05 mg oral tablet 1 tablet, By Mouth, Daily, # 90 tablet, 1 Refills, Maintenance, 09/07/20 9:19:00 EST, [facility]/pharmacy #7111, 158, cm, 09/01/20 9:29:00 EST, Height Start Date: 09/07/20 Status: Ordered LORazepam 0.5 mg oral tablet 1 tablet = 0.5 mg, By Mouth, Daily, PRN for anxiety, # 24 tablet, 1 Refills, Maintenance, 08/09/20 10:16:00 EST, Tablet, [facility]/pharmacy #7111, 158, cm, 08/09/20 9:40:00 EST, Height Start Date: 08/09/20 Status: Ordered losartan 100 mg oral tablet 1 tablet = 100 mg, By Mouth, Daily, # 30 tablet, 5 Refills, Maintenance, 09/01/20 11:21:00 EST, Tablet, [facility]/pharmacy #7111, Partial fill upon patient [...] 1 Refills, Maintenance, 03/26/20 14:17:00 EDT, [facility]/pharmacy #7111, 158, cm, 03/10/20 14:43:00 EDT, Height, 57.6, kg, 05/21/18 14:53:00 EDT, Dry Weight Start Date: 03/26/20 Stop Date: 05/25/20 Status: Ordered ProAir HFA 90 mcg/inh inhalation aerosol with adapter 2, puffs, Inhalation, 4 times a day, PRN, NEW RX PER AFAY, # 3 each, Refills 1, Tot. Refills 1, Maintenance, 11/22/20 7:30:00 EST, Aerosol, Route to Pharmacy Electronically, [id number], [facility]/pharmacy #7111, 158, cm, 09/30/20 1... Start [...] 12:01:00 EDT, Aerosol, Route to Pharmacy Electronically, [id number], [facility]/pharmacy #7111, 158, cm, 06/21/20 12:56:0... Start Date: 06/30/20 Status: Ordered Valtrex 500 mg oral tablet 500 mg, 1, tablet, By Mouth, Daily, # 30 tablet, Refills 11, Tot. Refills 11, Maintenance, 10/19/2111:02:00 EST, Route to Pharmacy Electronically, [facility]/pharmacy #7111, 158, cm, 09/30/20 14:41:00 EST,Height [...] CT measuring 4.1 cm. 2CT scan 2016 25459; repeat 2028 4colo 2009 nl, repeat 2019 [...]
--- OUTSIDE RECORDS SUMMARY | 2024-07-03 12:14 | XMS_ITS | Continuity of Care Document ---
Author Organization [facility] Eduardo Dawson Durga lt Address [address] [place] [address]- Care Team Providers Care Short Order Fry Cook Name Role Phone Miko Marshall MD Primary Care Physician [phone] [facility] - 10/26/21 [facility] Adult [address] [place] [address]- Allergies, Adverse Reactions, Alerts Substance Reaction Severity [...] n 1Admin Note: historical data 2Location History: [facility] 3Result Comment: [06/23/2016] HIGH DOSE 4Admin Note: FLUARIX 5Admin Note: VIS GIVEN 6Admin Note: [facility] info given to patient 7Admin Note: [...] 09/02/21 9:38:00 EST, Route to Pharmacy Electronically, [facility]/pharmacy #[id number], Partial fill upon patient request if the prescription is for a schedule II opioid drug.... Start Date: 09/02/21 Status: Ordered atorvastatin 10 mg oral tablet 0.5 tablet, By Mouth, Daily, # 45 tablet, 1 Refills, [facility] STORE [facility], 155, cm, 05/16/21 12:39:00 EDT, Height Start Date: 06/07/21 Status: Ordered budesonide-formoterol 160 mcg-4.5 mcg/inh inhalation aerosol with adapter 2, puffs, Inhalation, 2 times a day, # 30.6 each, Refills 1, Route to Pharmacy Electronically, [id number], [facility], 155, cm, 05/16/21 12:39:00 EDT, Height Start Date: 06/25/21 Status: Ordered Centrum Silver By Mouth, Daily, 0 Refills, Maintenance, 01/11/17 14:23:47 Start Date: 01/11/17 Status: Ordered cloNIDine 0.1 mg oral tablet 0.1 mg, 1, tablet, By Mouth, 2 times a day, # 180 tablet, Refills 3, Tot. Refills 3, Maintenance, 09/02/21 9:38:00 EST, Route to Pharmacy Electronically, [facility]/pharmacy #[id number], Partial fill upon patientrequest if the prescription is for a schedule II op... Start Date: 09/02/21 Status: Ordered hydroCHLOROthiazide 12.5 mg oral capsule 1 capsule = 12.5 mg, By Mouth, Daily, # 90 capsule, 3 Refills, Maintenance, 10/19/21 11:02:00 EST, Capsule, [facility]/pharmacy #[id number], Partial fill upon patient request if the prescription is for a scheduleII opioid drug., 155, cm, 10/05/21 13:33:00 EST, He... Start Date: 10/19/21 Status: Ordered levothyroxine 0.05 mg oral tablet 1 tablet, By Mouth, Daily, # 90 tablet, 1 Refills, [facility], 155, cm, 08/05/21 11:25:00 EST,Height Start Date: 09/01/21 Status: Ordered LORazepam 0.5 mg oral tablet 1 tablet = 0.5 mg, By Mouth, Daily, PRN for anxiety, # 24 tablet, 1 Refills, Maintenance, 09/02/21 9:33:00 EST, Tablet, [facility]/pharmacy #[id number], 155, cm, 09/02/21 8:06:00 EST, Height Start Date: 09/02/21 Status: Ordered losartan 100 mg oral tablet 1 tablet, By Mouth, Daily, # 90 tablet, 0 Refills, [facility], 155, cm, 09/02/21 8:06:00 EST, Height Start [...] 7:30:00 EST, Aerosol, Route to Pharmacy Electronically, [id number], [facility]/pharmacy #[id number], 158, cm, 09/30/20 1... Start Date: 11/22/20 Stop Date: 01/21/21 Status: Ordered Spiriva HandiHaler 18 mcg inhalation capsule 1 capsule, Inhalation, Daily, # 90 capsule, 1 Refills, Maintenance, 10/07/21 11:00:00 EST, [facility], 155, cm, 10/05/21 13:33:00 EST, Height Start Date: 10/07/21 Status: Ordered Valtrex 500 mg oral tablet 500 mg, 1, tablet, By Mouth, Daily, # 30 tablet, Refills 11, Tot. Refills 11, Maintenance, 10/19/2111:02:00 EST, Route to Pharmacy Electronically, [facility]/pharmacy #[id number], 158, cm, 09/30/20 14:41:00 [...] CT measuring 4.1 cm. 2CT scan 2016 24645; repeat 2028 4colo 2008 nl, repeat 2019 [...]
--- OUTSIDE RECORDS SUMMARY | 2024-07-03 12:14 | XMS_ITS | Continuity of Care Document ---
Author Organization [facility] Eduardo Dawson Durga lt Address [address] [place] [address]- Care Team Providers Care Archival Records Clerk Name Role Phone Miko Marshall MD Primary Care Physician [facility] 09[facility]23 - 10/11/23 [facility] Adult [address] [place] [address]- Allergies, Adverse Reactions, Alerts Substance Reaction Severity [...] 06/24/08 Give n 1Result Comment: [facility]: [id number] [facility] 3Result Comment: [06/23/2016] HIGH DOSE 4Admin Note: FLUARIX 5Admin Note: VIS GIVEN 6Admin Note: [facility] info given to patient 7Admin Note: [facility] [...] 1 Refills, Maintenance,05/25/22 15:32:00 EDT, [facility], 75, INHALE 2 PUFFS 4 TIMES A [...] tablet, 6 Refills, Maintenance, 06/29/23 15:09:00 EDT, [facility]/pharmacy #[id number], 155, cm, 06/29/23 14:50:00 EDT, Height, 52.25, kg, 04/27/22 14:46:00 EDT, Dry Weight Start Date: 06/29/23 Status: Ordered budesonide-formoterol 160 mcg-4.5 mcg/inh inhalation aerosol with adapter 2, puffs, Inhalation, 2 times a day, # 30.6 each, Refills 1, Maintenance, 08/29/23 5:44:00 EST, Route to Pharmacy Electronically, [id number], [facility] STORE 83292, 155, cm, 08/27/23 8:53:00 EST, Height, 52.25, [...] 09/28/23 13:34:00 EST, Route to Pharmacy Electronically, [facility]/pharmacy #[id number], Partial fill upon patient request if the prescription is for a schedule II o... Start Date: 09/28/23 Stop Date: 09/22/24 Status: Ordered fluticasone 50 mcg/inh nasal spray 1 sprays, Nares, Both, 2 times a day, # 16 Gm, 11 Refills, Maintenance, 06/29/23 15:10:00 EDT, Nasal [place], [facility]/pharmacy #[id number], Partial fill upon patient request if the prescription is for a scheduleII opioid drug., 1 sprays Nares, Both 2 times a day... Start Date: 06/29/23 Status: Ordered hydroCHLOROthiazide 12.5 mg oral capsule 1 capsule, By Mouth, Daily, # 90 capsule, 3 Refills, Maintenance, 12/28/22 7:50:00 EDT, [facility], 155, cm, 10/16/22 12:48:00 EST, Height, 52.25, kg, 04/27/22 14:46:00 EDT, Dry Weight Start Date: 12/28/22 Status: Ordered levothyroxine 0.05 mg oral tablet 1 tablet, By Mouth, Daily, # 90 tablet, 0 Refills, Maintenance, 08/29/23 5:44:00 EST, [facility], 155, cm, 08/27/23 8:53:00 EST, Height, 52.25, kg, 04/27/22 14:46:00 EDT, Dry Weight Start Date: 08/29/23 Status: Ordered LORazepam 0.5 mg oral tablet 1 tablet = 0.5 mg, By Mouth, Daily, PRN for anxiety, # 24 tablet, 1 Refills, Maintenance, 10/18/22 10:48:00 EST, Tablet, [facility]/pharmacy #[id number], 155, cm, 10/16/22 12:48:00 EST, Height, 52.25, kg, 04/27/22 14:46:00 EDT, Dry Weight Start Date: 10/18/22 Status: Ordered losartan 100 mg oral tablet 1 tablet, By Mouth, Daily, # 90 tablet, 3 Refills, Maintenance, 11/22/22 16:38:00 EST, [facility]/pharmacy#7111, 155, cm, 10/16/22 12:48:00 EST, Height, 52.25, kg, 04/27/22 14:46:00 EDT, Dry Weight Start Date: 11/22/22 Status: Ordered magnesium oxide 500 mg oral tablet 1 tablet = 500 mg, By Mouth, Daily, 0 Refills, Maintenance, 06/28/18 10:06:58 EDT Start Date: 06/28/18 Status: Ordered Spiriva HandiHaler 18 mcg inhalation capsule 1 capsule, Inhalation, Daily, # 90 capsule, 1 Refills, Maintenance, 09/11/23 10:37:00 EST, [facility]/pharmacy #[id number], 155, cm, 08/27/23 8:53:00 EST, Height, 52.25, kg, 04/27/22 14:46:00 EDT, Dry Weight Start Date: 09/11/23 Status: Ordered valACYclovir 500 mg oral tablet 1, tablet, By Mouth, Daily, # 30 tablet, Refills 11, Maintenance, 12/22/22 9:50:00 EDT, Route to Pharmacy Electronically, [facility] ST[facility] 39234, 155, cm, 10/16/22 12:48:00 EST, Height, 52.25, [...] CT measuring 4.1 cm. 2CT scan 2016 38753; repeat 2028 4colo 2009 nl, repeat 2019 [...] Primary Care Nurse Name: Barby Frias Position: [facility] Outreach Member Role: Lifetime Consulting Physician Name: Miko Marshall MD Position: [facility] Physician - Primary Care Member Role: PCP Address: Address: [address] [place] [address]- Name: Zachary Biswas MD Position: [facility] Renal MD Member Role: Lifetime Consulting Physician Address: Address: [address] [place] [address] [address] [facility] [place] [address]- Name: Moises BAH, Sridhar Position: [facility] RN Member Role: Primary Care Nurse Care Team Related Persons Name: MU CONTRERAS Address: [place] [address] Name: SHANELL COBIAN Address: [address] [address]
--- OUTSIDE RECORDS SUMMARY | 2024-07-03 12:14 | XMS_ITS | Continuity of Care Document ---
Author Organization [facility] Address [address] [place] [address]- Care Team Providers Care Gelatin Powder Mixer Name Role Phone Miko Marshall MD Primary Care Physician [phone] [facility] 06[facility] - 07/06/21 [facility] [address] [place] [address]- Attending Physician: AdmPaco praish Admitting Physician: AdmtrPaco Referring Physician: Admtr, Ar8 [...] toxoids (Td) 11 01/17/04 Given 1Location History: [facility] 2Result Comment: [06/23/2016] HIGH DOSE 3Admin Note: FLUARIX 4Admin Note: VIS GIVEN 5Admin Note: [facility] info given to patient 6Admin [...] 04/15/21 14:11:00 EDT, Route to Pharmacy Electronically, [facility]/pharmacy #[id number], Partial fill upon patient request if the prescription is for a schedul... Start Date: 04/15/21 Status: Ordered atorvastatin 10 mg oral tablet 0.5 tablet, By Mouth, Daily, # 45 tablet, 1 Refills, [facility] STORE 05877, 155, cm, 05/16/21 12:39:00 EDT, Height Start Date: 06/07/21 Status: Ordered budesonide-formoterol 160 mcg-4.5 mcg/inh inhalation aerosol with adapter 2, puffs, Inhalation, 2 times a day, # 30.6 each, Refills 1, Route to Pharmacy Electronically, [id number], [facility], 155, cm, 05/16/21 12:39:00 EDT, Height Start [...] 05/20/21 11:04:00 EDT, Route to Pharmacy Electronically, [facility]/pharmacy #[id number], Partial fill upon patientrequest if the prescription is for a schedule II op... Start Date: 05/20/21 Status: Ordered levothyroxine 0.05 mg oral tablet 1 tablet, By Mouth, Daily, # 90 tablet, 1 Refills, Maintenance, 03/11/21 15:34:00 EDT, [facility] STORE 23002, 158, cm, 02/01/21 9:13:00 EDT, Height Start Date: 03/11/21 Status: Ordered LORazepam 0.5 mg oral tablet 1 tablet = 0.5 mg, By Mouth, Daily, PRN for anxiety, # 24 tablet, 1 Refills, Maintenance, 08/09/20 10:16:00 EST, Tablet, [facility]/pharmacy #[id number], 158, cm, 08/09/20 9:40:00 EST, Height Start Date: 08/09/20 Status: Ordered losartan 100 mg oral tablet 1 tablet, By Mouth, Daily, # 90 tablet, 1 Refills, Maintenance, 03/19/21 21:39:00 EDT, [facility], 158, cm, 03/16/21 9:06:00 EDT, Height Start [...] 7:30:00 EST, Aerosol, Route to Pharmacy Electronically, [id number], [facility]/pharmacy #7111, 158, cm, 09/30/20 1... Start Date: 11/22/20 Stop Date: 01/21/21 Status: Ordered Spiriva HandiHaler 18 mcg inhalation capsule 1 capsule, Inhalation, Daily, # 90 capsule, 1 Refills, Maintenance, 02/22/21 14:59:00 EDT, [facility], 158, cm, 02/01/21 9:13:00 EDT, Height Start Date: 02/22/21 Status: Ordered Valtrex 500 mg oral tablet 500 mg, 1, tablet, By Mouth, Daily, # 30 tablet, Refills 11, Tot. Refills 11, Maintenance, 10/19/2111:02:00 EST, Route to Pharmacy Electronically, [facility]/pharmacy #[id number], 158, cm, 09/30/20 14:41:00 EST,Height [...] CT measuring 4.1 cm. 2CT scan 2015 [address]1576; repeat 2028 4colo 2008 nl, repeat 2019 [...]
--- OUTSIDE RECORDS SUMMARY | 2024-07-03 12:14 | XMS_ITS | Continuity of Care Document ---
Author Organization [facility] Samir Durga lt Address [address] [place] [address]- Care Team Providers Care Real Estate Office Manager Name Role Phone Joanna VO, Miko Guillen Primary Care Physician [facility] 04[facility]22/21 - 05/22/21 [facility] Adult [address] [place] [address]- Allergies, Adverse Reactions, Alerts Substance Reaction Severity [...] 04/15/21 14:11:00 EDT, Route to Pharmacy Electronically, [facility]/pharmacy #[id number], Partial fill upon patient request if the prescription is for a schedul... Start Date: 04/15/21 Status: Ordered atorvastatin 10 mg oral tablet 0.5, By Mouth, Daily, # 45 tablet, 1 Refills, Maintenance, 10/16/20 11:28:00 EST, Tablet, [facility]/pharmacy #[id number], 158, cm, 09/30/20 14:41:00 [...] 05/20/21 11:04:00 EDT, Route to Pharmacy Electronically, [facility]/pharmacy #[id number], Partial fill upon patientrequest if the prescription is for a schedule II op... Start Date: 05/20/21 Status: Ordered levothyroxine 0.05 mg oral tablet 1 tablet, By Mouth, Daily, # 90 tablet, 1 Refills, Maintenance, 03/11/21 15:34:00 EDT, [facility], 158, cm, 02/01/21 9:13:00 EDT, Height Start Date: 03/11/21 Status: Ordered LORazepam 0.5 mg oral tablet 1 tablet = 0.5 mg, By Mouth, Daily, PRN for anxiety, # 24 tablet, 1 Refills, Maintenance, 08/09/20 10:16:00 EST, Tablet, [facility]/pharmacy #[id number], 158, cm, 08/09/20 9:40:00 EST, Height Start Date: 08/09/20 Status: Ordered losartan 100 mg oral tablet 1 tablet, By Mouth, Daily, # 90 tablet, 1 Refills, Maintenance, 03/19/21 21:39:00 EDT, [facility], 158, cm, 03/16/21 9:06:00 EDT, Height Start [...] 7:30:00 EST, Aerosol, Route to Pharmacy Electronically, [id number], [facility], cm, 09/30/20 1... Start Date: 11/22/20 Stop Date: 01/21/21 Status: Ordered Spiriva HandiHaler 18 mcg inhalation capsule 1 capsule, Inhalation, Daily, # 90 capsule, 1 Refills, Maintenance, 02/22/21 14:59:00 EDT, [facility], 158, cm, 02/01/21 9:13:00 EDT, Height Start Date: 02/22/21 Status: Ordered Symbicort 160mcg/4.5mcg Inhaler 2, puffs, Inhalation, 2 times a day, 90 DAY SUPPLY, # 3 each, Refills 1, Tot. Refills 1, Maintenance, 01/04/21 11:06:00 EDT, Aerosol, Route to Pharmacy Electronically, [id number], [id number], 158, cm, 09/30/20 14:41:0... Start Date: 01/04/21 Status: Ordered Valtrex 500 mg oral tablet 500 mg, 1, tablet, By Mouth, Daily, # 30 tablet, Refills 11, Tot. Refills 11, Maintenance, 10/19/2111:02:00 EST, [facility]ically, [id number], 158, cm, 09/30/20 14:41:00 EST,Height [...]
--- OUTSIDE RECORDS SUMMARY | 2024-07-03 12:14 | XMS_ITS | Continuity of Care Document ---
Author Organization [facility] Samir Durga lt Address [address] [place] [address]- Care Team Providers Care Junior Staff Accountant Name Role Phone Joanna VO, Miko Guillen Primary Care Physician [facility]): [facility] - 04/22/21 [facility] Adult [address] [place] [address]- Encounter Diagnosis HTN (hypertension)(Discharge Diagnosis) - 04/15/21 Attending Physician: Brenda Jackson NP Referring Physician: [...] 04/15/21 14:11:00 EDT, Route to Pharmacy Electronically, [facility]/pharmacy #[id number], Partial fill upon patient request if the prescription is for a schedul... Start Date: 04/15/21 Status: Ordered atorvastatin 10 mg oral tablet 0.5, By Mouth, Daily, # 45 tablet, 1 Refills, Maintenance, 10/16/20 11:28:00 EST, Tablet, [facility]/pharmacy #[id number], 158, cm, 09/30/20 14:41:00 EST, [...] Refills, Maintenance, 03/11/21 15:34:00 EDT, [facility], 158, cm, 02/01/21 9:13:00 EDT, Height Start Date: 03/11/21 Status: Ordered LORazepam 0.5 mg oral tablet 1 tablet = 0.5 mg, By Mouth, Daily, PRN for anxiety, # 24 tablet, 1 Refills, Maintenance, 08/09/20 10:16:00 EST, Tablet, [facility]/pharmacy #[id number], 158, cm, 08/09/20 9:40:00 EST, Height Start Date: 08/09/20 Status: Ordered losartan 100 mg oral tablet 1 tablet, By Mouth, Daily, # 90 tablet, 1 Refills, Maintenance, 03/19/21 21:39:00 EDT, [facility], 158, cm, 03/16/21 9:06:00 EDT, Height Start [...] 7:30:00 EST, Aerosol, Route to Pharmacy Electronically, [id number], [facility] 158, cm, 09/30/20 1... Start Date: 11/22/20 Stop Date: 01/21/21 Status: Ordered Spiriva HandiHaler 18 mcg inhalation capsule 1 capsule, Inhalation, Daily, # 90 capsule, 1 Refills, Maintenance, 02/22/21 14:59:00 EDT, [facility], 158, cm, 02/01/21 9:13:00 EDT, Height Start Date: 02/22/21 Status: Ordered Symbicort 160mcg/4.5mcg Inhaler 2, puffs, Inhalation, 2 times a day, 90 DAY SUPPLY, # 3 each, Refills 1, Tot. Refills 1, Maintenance, 01/04/21 11:06:00 EDT, Aerosol, Route to Pharmacy Electronically, [id number], [id number], 158, cm, 09/30/20 14:41:0... Start Date: 01/04/21 Status: Ordered Valtrex 500 mg oral tablet 500 mg, 1, tablet, By Mouth, Daily, # 30 tablet, Refills 11, Tot. Refills 11, Maintenance, 10/19/2111:02:00 EST, [facility] to [facility] Electronically, [id number] 158, cm, 09/30/20 14:41:00 EST,Height [...] CT measuring 4.1 [address]. 2CT scan 2016 [address]283; repeat 2028 4colo 2009 nl, repeat 2019 5colo 2018 6egd 2012 no barretts 7colo 2018 8Status post laparotomy with lysis of adhesions and repair of incarcerated ventral hernia. Surgery performed March 2018. 9Thyroid peroxidase antibody positive Diagnosis Diagnosis Type Effective Dates Health Status Cl inical Service Informant HTN (hypertension) Discharge Diagnosis 04/15/21 Vital Signs Most recent to oldest [Reference Range]: 1 Height 155 cm (04/15/21 1:40 PM) Weight 55.5 kg (04/15/21 1:40 PM) Oxygen Saturation [94-100 %] 96 % (04/15/21 1:40 PM) Pulse Rate [55-90 bpm] 66 bpm (04/15/21 1:40 PM) Body Mass Index [18.5-24.99] 23.1 (04/15/21 1:40 PM) Blood Pressure [90-138/55-84 mm Hg] 140/ 82mm Hg *H* (04/15/21 1:40 PM) Blood pressure sites Arm, left (04/15/21 1:40 PM) Social History Social History Type Response Smoking Status Former smoker; Other : quit 15 years ago; entered on: 03/16/16 Sex Female
--- OUTSIDE RECORDS SUMMARY | 2024-07-03 12:14 | XMS_ITS | Continuity of Care Document ---
Author Organization [facility] Eduardo Dawson Durga lt Address [address] [place] [address]- Care Team Providers Care Passenger Barge Master Name Role Phone Joanna VO, Miko Guillen Primary Care Physician [facility] 04[facility]20 - 05/06/20 [facility] Adult [address] [place] [address]- [facility] Allergies, Adverse Reactions, Alerts Substance Reaction Severity [...] 1 Refills, Maintenance, 09/12/19 13:53:00 EST, Tablet, [facility]/pharmacy #[id number], 158, cm, 05/22/19 10:37:00 EDT, Height, 57.6, kg, 05/21/18 14:53:00 EDT, Dry Weight Start Date: 09/12/19 Status: Ordered losartan 100 mg oral tablet 1 tablet = 100 mg, By Mouth, Daily, replaces valsartan, # 90 tablet, 1 Refills, Maintenance, 03/26/20 14:16:00 EDT, Tablet, [facility]/pharmacy #7111, replaces valsartan, 158, cm, 03/10/20 [...] 1 Refills, Maintenance, 03/26/20 14:17:00 EDT, [facility]/pharmacy #7111, 158, [...] 14:51:47 EST, Aerosol, Route to Pharmacy Electronically, [id number], [facility]/pharmacy #7111 Start [...] 12:57:08 EST, Aerosol, Route to Pharmacy Electronically, [id number], [facility], 158, cm, 0... Start Date: 08/21/19 Status: Ordered Valtrex 500 mg oral tablet 500 mg, 1, tablet, By Mouth, Daily, # 30 tablet, Refills 11, Tot. Refills 11, Maintenance, 07/25/1811:27:07 EST, Route to Pharmacy Electronically, [id number], [facility]/pharmacy #7111 Start [...]
--- OUTSIDE RECORDS SUMMARY | 2024-07-03 12:14 | XMS_ITS | Continuity of Care Document ---
Author Organization [facility] Eduardo Dawson Durga Address [address] [place] [address]- Care Team Providers Care Special Services Director Name Role Phone Miko Marshall MD Primary Care Physician [place] [facility] [place] 03/10/20 - 03/17/20 [facility] Eduardo Dawson Adult [address] [place] [address]- [facility] Encounter Diagnosis Open wound of left lower leg(Discharge Diagnosis) - 03/10/20 Attending Physician: Wen Moore NP Allergies, Adverse Reactions, Alerts Substance Reaction [...] 0 Refills, Maintenance, 01/21/20 11:38:00 EDT, Capsule, [facility]/pharmacy #[id number], 1 capsule By Mouth Every 4 hours,PRN:as needed,Instr:not to exceed 6 capsules/da... Start Date: 01/21/20 Status: Ordered amoxicillin-clavulanate 875 mg-125 mg oral tablet 1 tablet, By Mouth, Every 12 hours, for 10 days, # 20 tablet, 0 Refills, Acute 03/20/20 15:09:00 EDT, 03/10/20 15:09:00 EDT, Tablet, [facility]/pharmacy #[id number], 158, cm, 03/10/20 14:43:00 EDT, Height, 57.6, kg, 05/21/18 14:53:00 EDT, Dry Weight Start Date: 03/10/20 Stop Date: 03/20/20 Status: Ordered atorvastatin 10 mg oral tablet 0.5, By Mouth, Daily, # 45 tablet, 1 Refills, Maintenance, 10/14/19 10:36:00 EST, Tablet, [facility]/pharmacy #[id number], 158, cm, 05/22/19 10:37:00 EDT, Height, 57.6, kg, 05/21/18 14:53:00 EDT, Dry Weight Start Date: 10/14/19 Status: Ordered Centrum Silver By Mouth, Daily, 0 Refills, Maintenance, 01/11/17 14:23:47 Start Date: 01/11/17 Status: Ordered hydrochlorothiazide-triamterene 25 mg-37.5 mg oral capsule 1 capsule, By Mouth, Daily, # 90 capsule, 1 Refills, Maintenance, 03/17/20 9:27:00 EDT, [facility]/pharmacy #[id number], 1 capsule By Mouth Daily, 158, cm, 03/10/20 14:43:00 EDT, Height, 57.6, kg, 05/21/18 14:53:00 EDT, Dry Weight Start Date: 03/17/20 Status: Ordered levothyroxine 0.05 mg oral tablet 1 tablet, By Mouth, Daily, # 90 tablet, 1 Refills, Maintenance, 03/13/20 20:13:00 EDT, [facility]/pharmacy#7111, 158, cm, 03/10/20 14:43:00 EDT, Height, 57.6, kg, 05/21/18 14:53:00 EDT, Dry Weight Start Date: 03/13/20 Status: Ordered LORazepam 0.5 mg oral tablet 1 tablet = 0.5 mg, By Mouth, Daily, PRN for anxiety, , # 24 tablet, 1 Refills, Maintenance, 09/12/19 13:53:00 EST, Tablet, [facility]/pharmacy #[id number], 158, cm, 05/22/19 10:37:00 EDT, Height, 57.6, kg, 05/21/18 14:53:00 EDT, Dry Weight Start Date: 09/12/19 Status: Ordered losartan 100 mg oral tablet 1 tablet = 100 mg, By Mouth, Daily, please make OV within next 1-2 months for further refills., # 30 tablet, 1 Refills, Maintenance, 11/12/19 16:41:00 EST, Tablet, [facility]/pharmacy #[id number], 158, cm, 05/22/19 10:37:00 EDT, [...] 14:51:47 EST, Aerosol, Route to Pharmacy Electronically, [id number], [facility]/pharmacy #[id number] Start Date: 07/30/19 Status: Ordered Spiriva HandiHaler 18 mcg inhalation capsule 1 capsule, Inhalation, Daily, # 90 capsule, 3 Refills, Maintenance, 01/22/20 12:21:00 EDT, [facility], 158, cm, 01/01/20 10:50:00 EDT, Height, 57.6, kg, 05/21/18 14:53:00 EDT, DryWeight Start Date: 01/22/20 Status: Ordered Symbicort 160mcg/4.5mcg Inhaler 2, puffs, Inhalation, 2 times a day, 90 DAY SUPPLY, # 3 each, Refills 1, Tot. Refills 1, Maintenance, 08/21/19 12:57:08 EST, Aerosol, Route to Pharmacy Electronically, [id number], [facility], 158, cm, 0... Start Date: 08/21/19 Status: Ordered valsartan 320 mg oral tablet 1 tablet = 320 mg, By Mouth, Daily, # 90 tablet, 3 Refills, Maintenance, 01/28/20 7:32:00 EDT, Tablet, [facility]/pharmacy #[id number], 158, cm, 01/01/20 10:50:00 EDT, Height, 57.6, kg, 05/21/18 14:53:00 EDT, DryWeight Start Date: 01/28/20 Status: Ordered Valtrex 500 mg oral tablet 500 mg, 1, tablet, By Mouth, Daily, # 30 tablet, Refills 11, Tot. Refills 11, Maintenance, 07/25/1811:27:07 EST, Route to Pharmacy Electronically, [id number], [facility]/pharmacy #[id number] Start Date: 07/25/18 Status: Ordered [...] CT measuring 4.1 cm. 2CT scan 2015 08907; repeat 2028 4colo 2008 nl, repeat 2018 5colo 2018 6egd 2012 no barretts 7colo 2018 8Status post laparotomy with lysis of adhesions and repair of incarcerated ventral hernia. Surgery performed March 2018. 9Thyroid peroxidase antibody positive Diagnosis Diagnosis Type Effective Dates Health Status Cl inical Service Informant Open wound of left lower leg Discharge Diagnosis 03/10/20 Vital Signs Most recent to oldest [Reference Range]: 1 Height 158 cm (03/10/20 2:43 PM) Weight 58.2 kg (03/10/20 2:43 PM) Oxygen Saturation [94-100 %] 97 % (03/10/20 2:43 PM) Pulse Rate [55-90 bpm] 78 bpm (03/10/20 2:43 PM) Body Mass Index [18.5-24.99] 23.31 (03/10/20 2:43 PM) Blood Pressure [90-138/55-84 mm Hg] 126/ 64mm Hg (03/10/20 2:43 PM) Respiratory Rate [16-30 br/min] 16 br/mi n (03/10/20 2:43 PM) Temperature [96.8-100.4 DegF] 98.0 DegF (03/10/20 2:43 PM) Mode of Delivery (Oxygen) Room air (03/10/20 2:43 PM) Blood pressure sites Arm, right (03/10/20 2:43 PM) Temperature Route Oral (03/10/20 2:43 PM) Weight Obtained Via Standing scale (03/10/20 2:43 PM) Social History Social History Type Response Smoking Status Former smoker; Other : quit 15 years ago; entered on: 03/16/16 Sex
--- OUTSIDE RECORDS SUMMARY | 2024-07-03 12:14 | XMS_ITS | Continuity of Care Document ---
Author Organization [facility] Eduardo Dawson Durga lt Address [address] [place] [address]- Care Team Providers Care Pricing Supervisor Name Role Phone Miko Marshall MD Primary Care Physician [facility] Date[facility]s): 09/28/23 - 10/05/23 [facility] Adult [address] [place] [address]- Attending Physician: Miko Marshall MD Allergies, Adverse [...] 06/24/08 Give n 1Result Comment: [facility]: [id number] [facility] 3Result Comment: [06/23/2016] HIGH DOSE 4Admin Note: FLUARIX 5Admin Note: VIS GIVEN 6Admin Note: [facility] info given to patient 7Admin Note: [facility]GREEN [...] 1 Refills, Maintenance,05/25/22 15:32:00 EDT, [facility], 75, INHALE 2 PUFFS 4 TIMES A DAY WHEN NEEDED FOR WHEEZING, 155, cm, 04/27/22 14:46:00 EDT, Height, 52.25, kg, 0... Start Date: 05/25/22 Status: Ordered amLODIPine 10 mg oral tablet 10 mg, 1, tablet, By Mouth, Daily, # 90 tablet, Refills 3, Tot. Refills 3, Maintenance, 11/22/22 16:38:00 EST, [id number] Partial fill upon patient [...] tablet, 6 Refills, Maintenance, 06/29/23 15:09:00 EDT, [id number], 155, cm, 06/29/23 14:50:00 EDT, Height, 52.25, kg, 04/27/22 14:46:00 EDT, Dry Weight Start Date: 06/29/23 Status: Ordered budesonide-formoterol 160 mcg-4.5 mcg/inh inhalation aerosol with adapter 2, puffs, Inhalation, 2 times a day, # 30.6 each, Refills 1, Maintenance, 08/29/23 5:44:00 EST, Route to Pharmacy Electronically, [id number], [facility], 155, cm, 08/27/23 8:53:00 EST, Height, 52.25, [...] 09/28/23 13:34:00 EST, Route to Pharmacy Electronically, [facility]/pharmacy #[id number], Partial fill upon patient request if the prescription is for a schedule II o... Start Date: 09/28/23 Stop Date: 09/22/24 Status: Ordered fluticasone 50 mcg/inh nasal spray 1 sprays, Nares, Both, 2 times a day, # 16 Gm, 11 Refills, Maintenance, 06/29/23 15:10:00 EDT, Nasal [place], [facility]/pharmacy #[id number], Partial fill upon patient request if the prescription is for a scheduleII opioid drug., 1 sprays Nares, Both 2 times a day... Start Date: 06/29/23 Status: Ordered hydroCHLOROthiazide 12.5 mg oral capsule 1 capsule, By Mouth, Daily, # 90 capsule, 3 Refills, Maintenance, 12/28/22 7:50:00 EDT, [facility], 155, cm, 10/16/22 12:48:00 EST, Height, 52.25, kg, 04/27/22 14:46:00 EDT, Dry Weight Start Date: 12/28/22 Status: Ordered levothyroxine 0.05 mg oral tablet 1 tablet, By Mouth, Daily, # 90 tablet, 0 Refills, Maintenance, 08/29/23 5:44:00 EST, [facility], 155, cm, 08/27/23 8:53:00 EST, Height, 52.25, kg, 04/27/22 14:46:00 EDT, Dry Weight Start Date: 08/29/23 Status: Ordered LORazepam 0.5 mg oral tablet 1 tablet = 0.5 mg, By Mouth, Daily, PRN for anxiety, # 24 tablet, 1 Refills, Maintenance, 10/18/22 10:48:00 EST, Tablet, [facility]/pharmacy #7111, 155, cm, 10/16/22 12:48:00 EST, Height, 52.25, kg, 04/27/22 14:46:00 EDT, Dry Weight Start Date: 10/18/22 Status: Ordered losartan 100 mg oral tablet 1 tablet, By Mouth, Daily, # 90 tablet, 3 Refills, Maintenance, 11/22/22 16:38:00 EST, [facility]/pharmacy#7111, 155, cm, 10/16/22 12:48:00 EST, [...] capsule, 1 Refills, Maintenance, 09/11/23 10:37:00 EST, [facility]/pharmacy #[id number], 155, cm, 08/27/23 8:53:00 EST, Height, 52.25, kg, 04/27/22 14:46:00 EDT, Dry Weight Start Date: 09/11/23 Status: Ordered valACYclovir 500 mg oral tablet 1, tablet, By Mouth, Daily, # 30 tablet, Refills 11, Maintenance, 12/22/22 9:50:00 EDT, Route to Pharmacy Electronically, [facility], 155, cm, 10/16/22 12:48:00 EST, Height, 52.25, [...] CT measuring 4.1 cm. 2CT scan 2016 37540; repeat 2028 4colo 2009 nl, repeat 2019 [...] Primary Care Nurse Name: Barby Frias Position: [facility] Outreach Member Role: Lifetime Consulting Physician Name: Miko Marshall MD Position: [facility] Physician - Primary Care Member Role: PCP Address: Address: [address] [place] [address]- Name: Zachary Biswas MD Position: [facility] Renal MD Member Role: Lifetime Consulting Physician Address: Address: [address] [place] [address] [address] [facility] [place] [address]- Name: Moises BAH, Sridhar Position: [facility] RN Member Role: Primary Care Nurse Care Team Related Persons Name: MU CONTRERAS Address: [place] [address] Name: SHANELL COBIAN Address: [address] [address]
--- OUTSIDE RECORDS SUMMARY | 2024-07-03 12:14 | XMS_ITS | Continuity of Care Document ---
Author Organization [facility] Address [address] [place] [address]- Care Team Providers Care Director Gift Name Role Phone Joanna VO, Miko Guillen Primary Care Physician [phone] Encounter [facility] Date(s): 09/16/20 - 10/16/20 [facility] [address] [place] [address]- Attending Physician: Paco Anderson Admitting Physician: AdmtrPaco [...] FLUARIX 4Admin Note: VIS GIVEN 5Admin Note: [facility] info given to patient 6Admin Note: GIANCARLO 7Result Comment: OOP 8Admin Note: WALPARKERT 9Admin Note: Information sheet given 10Admin Note: given in clinic 11Admin Note: historical data Medications acetaminophen/butalbital/caffeine 325 mg-50 mg-40 mg oral capsule 1 capsule, By Mouth, Every 4 hours, PRN as needed, not to exceed 6 capsules/day, # 12 capsule, 0 Refills, Maintenance, 01/21/20 11:38:00 EDT, Capsule, [facility]/pharmacy #[id number], 1 capsule By Mouth Every 4 hours,PRN:as needed,Instr:not to exceed 6 capsules/da... Start Date: 01/21/20 Status: Ordered amLODIPine 2.5 mg oral tablet 2.5 mg, 1, tablet, By Mouth, Daily, # 30 tablet, Refills 5, Tot. Refills 5, Maintenance, 09/01/20 11:20:00 EST, Route to Pharmacy Electronically, [facility]/pharmacy #[id number], Partial fill upon patient requestif the prescription is for a schedule II opioid tian... Start Date: 09/01/20 Status: Ordered atorvastatin 10 mg oral tablet 0.5, By Mouth, Daily, # 45 tablet, 1 Refills, Maintenance, 10/16/20 11:28:00 EST, Tablet, [facility]/pharmacy #7111, 158, cm, 09/30/20 14:41:00 EST, Height Start Date: 10/16/20 Status: Ordered Centrum Silver By Mouth, Daily, 0 Refills, Maintenance, 01/11/17 14:23:47 Start Date: 01/11/17 Status: Ordered cloNIDine 0.1 mg oral tablet 0.1 mg, 1, tablet, By Mouth, 2 times a day, # 60 tablet, Refills 5, Tot. Refills 5, Maintenance, 09/01/20 11:20:00 EST, Route to Pharmacy Electronically, [facility]/pharmacy #[id number], Partial fill upon patientrequest if the prescription is for a schedule II op... Start Date: 09/01/20 Status: Ordered levothyroxine 0.05 mg oral tablet 1 tablet, By Mouth, Daily, # 90 tablet, 1 Refills, Maintenance, 09/07/20 9:19:00 EST, [facility]/pharmacy #[id number], 158, cm, 09/01/20 9:29:00 EST, Height Start Date: 09/07/20 Status: Ordered LORazepam 0.5 mg oral tablet 1 tablet = 0.5 mg, By Mouth, Daily, PRN for anxiety, # 24 tablet, 1 Refills, Maintenance, 08/09/20 10:16:00 EST, Tablet, [facility]/pharmacy #[id number], 158, cm, 08/09/20 9:40:00 EST, Height Start Date: 08/09/20 Status: Ordered losartan 100 mg oral tablet 1 tablet = 100 mg, By Mouth, Daily, # 30 tablet, 5 Refills, Maintenance, 09/01/20 11:21:00 EST, Tablet, [facility]/pharmacy #7111, Partial fill upon [...] tablet, 1 Refills, Maintenance, 03/26/20 14:17:00 EDT, [facility]/pharmacy #[id number], 158, cm, 03/10/20 14:43:00 EDT, Height, 57.6, kg, 05/21/18 14:53:00 EDT, Dry Weight Start Date: 03/26/20 Stop Date: 05/25/20 Status: Ordered ProAir HFA 90 mcg/inh inhalation aerosol with adapter 2, puffs, Inhalation, 4 times a day, PRN, NEW RX PER AFAY, # 3 each, Refills 1, Tot. Refills 1, Maintenance, 07/30/19 14:51:47 EST, Aerosol, Route to Pharmacy Electronically, [id number], [facility]/pharmacy #7111 Start Date: 07/30/19 [...] 12:01:00 EDT, Aerosol, Route to Pharmacy Electronically, [id number], [facility]/pharmacy #7111, 158, cm, 06/21/20 12:56:0... Start Date: 06/30/20 Status: Ordered Valtrex 500 mg oral tablet 500 mg, 1, tablet, By Mouth, Daily, # 30 tablet, Refills 11, Tot. Refills 11, Maintenance, 07/25/1811:27:07 EST, Route to Pharmacy Electronically, [id number], [facility]/pharmacy #[id number] Start Date: 07/25/18 [...]
--- OUTSIDE RECORDS SUMMARY | 2024-07-03 12:14 | XMS_ITS | Continuity of Care Document ---
Author Organization [facility] Eduardo Dawson Durga lt Address [address] [place] [address]- Care Team Providers Care Vehicle Monitor Technician Name Role Phone Miko Marshall MD Primary Care Physician [facility] Date[facility]s): 12/22/23 - 01/21/24 [facility] Adult [address] [place] [address]- Allergies, Adverse Reactions, Alerts Substance Reaction Severity [...] Give n 1Result Comment: [facility]: [phone] 2[facility] 3Result Comment: [06/23/2016] HIGH DOSE 4Admin Note: FLUARIX 5Admin Note: VIS GIVEN 6Admin Note: [facility] info given to patient 7Admin Note: [...] 3 Refills, Maintenance, 01/01/25 15:18:00 EDT, Solution, [facility]/pharmacy #[id number], Partial fill upon patient request if the prescription is for a schedule II opioid drug., 155,... Start Date: 01/01/25 Stop Date: 12/27/25 Status: Ordered albuterol 0.083% inhalation solution 3 mL = 2.5 mg, Inhalation, Every 6 hours, for 90 days, use with nebulizer, # 1,080 mL, 3 Refills, Hard Stop 01/01/25 15:18:00 EDT, 01/07/24 15:18:00 EDT, Solution, [facility]/pharmacy #7111, Partial fill upon patient request if the prescription is for a sche... Start Date: 01/07/24 Stop Date: 01/01/25 Status: Ordered amLODIPine 10 mg oral tablet 1 tablet, By Mouth, Daily, # 90 tablet, 1 Refills, Maintenance, 12/22/23 8:21:00 EDT, [facility]/pharmacy #[id number], 155, cm, 10/12/23 16:44:00 EST, [...] tablet, 6 Refills, Maintenance, 06/29/23 15:09:00 EDT, [facility]/pharmacy #[id number], 155, cm, 06/29/23 14:50:00 EDT, Height, 52.25, kg, 04/27/22 14:46:00 EDT, Dry Weight Start Date: 06/29/23 Status: Ordered budesonide-formoterol 160 mcg-4.5 mcg/inh inhalation aerosol with adapter 2, puffs, Inhalation, 2 times a day, # 30.6 each, Refills 11, Tot. Refills 11, Maintenance, 11/20/23 9:54:00 EST, Route to Pharmacy Electronically, [id number], [facility]/pharmacy #[id number], 155, cm, 10/12/23 16:44:00 EST, [...] 09/28/23 13:34:00 EST, Route to Pharmacy Electronically, [facility]/pharmacy #[id number], Partial fill upon patient request if the prescription is for a schedule II o... Start Date: 09/28/23 Stop Date: 09/22/24 Status: Ordered fluticasone 50 mcg/inh nasal spray 1 sprays, Nares, Both, 2 times a day, # 16 Gm, 11 Refills, Maintenance, 06/29/23 15:10:00 EDT, Nasal [place], [facility]/pharmacy #7111, Partial fill upon patient request if the prescription is for a scheduleII opioid drug., 1 sprays Nares, Both 2 times a day... Start Date: 06/29/23 Status: Ordered hydroCHLOROthiazide 12.5 mg oral capsule 1 capsule, By Mouth, Daily, # 90 capsule, 3 Refills, Maintenance, 12/28/22 7:50:00 EDT, [facility], 155, cm, 10/16/22 12:48:00 EST, Height, 52.25, kg, 04/27/22 14:46:00 EDT, Dry Weight Start Date: 12/28/22 Status: Ordered levothyroxine 0.05 mg oral tablet 1 tablet, By Mouth, Daily, # 90 tablet, 0 Refills, Maintenance, 11/26/23 9:51:00 EDT, [facility], 155, cm, 10/12/23 16:44:00 EST, Height, 52.25, kg, 04/27/22 14:46:00 EDT, Dry Weight Start Date: 11/26/23 Status: Ordered LORazepam 0.5 mg oral tablet 1 tablet = 0.5 mg, By Mouth, Daily, PRN for anxiety, # 24 tablet, 1 Refills, Maintenance, 12/11/23 9:46:00 EDT, Tablet, [facility]/pharmacy #[id number], 155, cm, 10/12/23 16:44:00 EST, Height, 52.25, kg, 04/27/2214:46:00 EDT, Dry Weight Start Date: 12/11/23 Status: Ordered losartan 100 mg oral tablet 1 tablet, By Mouth, Daily, # 90 tablet, 1 Refills, Maintenance, 12/22/23 8:20:00 EDT, [facility]/pharmacy #[id number], 155, cm, 10/12/23 16:44:00 EST, [...] capsule, 4 Refills, Maintenance, 11/20/23 9:54:00 EST, [facility]/pharmacy #[id number], 155, cm, 10/12/23 16:44:00 EST, Height, 52.25, kg, 04/27/22 14:46:00 EDT, Dry Weight Start Date: 11/20/23 Status: Ordered Spiriva HandiHaler 18 mcg inhalation capsule 1 capsule = 18 mcg, Inhalation, Daily, # 90 capsule, 3 Refills, Maintenance, 01/07/24 15:17:00 EDT,[facility]/pharmacy #7111, Partial fill upon patient request if the prescription is for a schedule II opioid drug., 155, cm, 01/07/24 14:45:00 EDT, Height, 52... Start Date: 01/07/24 Stop Date: 01/01/25 Status: Ordered Symbicort 160mcg/4.5mcg Inhaler 2, puffs, Inhalation, 2 times a day, # 3 each, Refills 3, Tot. Refills 3, Maintenance, 01/07/24 15:17:00 EDT, Aerosol, Route to Pharmacy Electronically, [id number], [facility]/pharmacy #7111, 155, cm, 01/07/24 14:45:00 EDT, Height,... Start Date: 01/07/24 Stop Date: 01/01/25 Status: Ordered valACYclovir 500 mg oral tablet 1, tablet, By Mouth, Daily, # 30 tablet, Refills 11, Maintenance, 12/22/22 9:50:00 EDT, Route to Pharmacy Electronically, [facility] [address], 155, cm, 10/16/22 12:48:00 EST, Height, 52.25, kg, 04/27/22 14:46:00 EDT, Dry Weight Start Date: 12/22/22 Status: Ordered Ventolin HFA 108 mcg/inh inhalation aerosol with adapter 2 puffs, Inhalation, Every 6 hours, PRN for wheezing, # 8 Gm, 11 Refills, Maintenance, 11/20/23 9:54:00 EST, Aerosol, [facility]/pharmacy #7111, Partial fill upon patient request [...] CT measuring 4.1 [address]. 2CT scan 2015 63621; repeat 2028 4colo 2008 nl, repeat 2018 [...] Member Role: Primary Care Nurse Name: Barby Frais Position: [facility] Outreach Member Role: Lifetime Consulting Physician Name: Miko Marshall MD Position: [facility] Physician - Primary Care Member Role: PCP Address: Address: [address] [place], [place] [address] [place] [address]- [place] Name: Zachary Biswas MD Position: [facility] Renal MD Member Role: Lifetime Consulting Physician Address: Address: [address] [facility] [place] [place] [address]- Name: Sridhar De Leon RN Position: [facility] RN Member Role: Primary Care Nurse Care Team Related Persons Name: MU CONTRERAS Address: [place] [address] Name: SHANELL COBIAN Address: home [address] [place] [address]
--- OUTSIDE RECORDS SUMMARY | 2024-07-03 12:14 | XMS_ITS | Continuity of Care Document ---
Author Organization [facility] Edaurdo Dawson Durga lt Address [address] [place] [address]- Care Team Providers Care Cashier Clerk Name Role Phone Joanna VO, Miko Guillen Primary Care Physician [facility]): 05[facility]21 - 06/04/21 [facility] Adult [address] [place] [address]- Allergies, Adverse Reactions, Alerts Substance Reaction Severity [...] 04/15/21 14:11:00 EDT, Route to Pharmacy Electronically, [facility]/pharmacy #[id number], Partial fill upon patient request if the prescription is for a schedul... Start Date: 04/15/21 Status: Ordered atorvastatin 10 mg oral tablet 0.5, By Mouth, Daily, # 45 tablet, 1 Refills, Maintenance, 10/16/20 11:28:00 EST, Tablet, [facility]/pharmacy #7111, 158, cm, 09/30/20 14:41:00 EST, [...] 05/20/21 11:04:00 EDT, Route to Pharmacy Electronically, [facility]/pharmacy #7111, Partial fill upon patientrequest if the prescription is for a schedule II op... Start Date: 05/20/21 Status: Ordered levothyroxine 0.05 mg oral tablet 1 tablet, By Mouth, Daily, # 90 tablet, 1 Refills, Maintenance, 03/11/21 15:34:00 EDT, [facility] STORE [facility], 158, cm, 02/01/21 9:13:00 EDT, Height Start Date: 03/11/21 Status: Ordered LORazepam 0.5 mg oral tablet 1 tablet = 0.5 mg, By Mouth, Daily, PRN for anxiety, # 24 tablet, 1 Refills, Maintenance, 08/09/20 10:16:00 EST, Tablet, [facility]/pharmacy #7111, 158, cm, 08/09/20 9:40:00 EST, Height Start Date: 08/09/20 Status: Ordered losartan 100 mg oral tablet 1 tablet, By Mouth, Daily, # 90 tablet, 1 Refills, Maintenance, 03/19/21 21:39:00 EDT, [facility] STORE [facility], 158, cm, 03/16/21 9:06:00 EDT, Height Start [...] 7:30:00 EST, Aerosol, Route to Pharmacy Electronically, [id number], [facility]/pharmacy #7111, 158, cm, 09/30/20 1... Start Date: 11/22/20 Stop Date: 01/21/21 Status: Ordered Spiriva HandiHaler 18 mcg inhalation capsule 1 capsule, Inhalation, Daily, # 90 capsule, 1 Refills, Maintenance, 02/22/21 14:59:00 EDT, [facility], 158, cm, 02/01/21 9:13:00 EDT, Height Start Date: 02/22/21 Status: Ordered Symbicort 160mcg/4.5mcg Inhaler 2, puffs, Inhalation, 2 times a day, 90 DAY SUPPLY, # 3 each, Refills 1, Tot. Refills 1, Maintenance, 01/04/21 11:06:00 EDT, Aerosol, Route to Pharmacy Electronically, [id number], [facility]/pharmacy #7111, 158, cm, 09/30/20 14:41:0... Start Date: 01/04/21 Status: Ordered Valtrex 500 mg oral tablet 500 mg, 1, tablet, By Mouth, Daily, # 30 tablet, Refills 11, Tot. Refills 11, Maintenance, 10/19/2111:02:00 EST, Route to Pharmacy Electronically, [facility]/pharmacy #7111, 158, cm, 09/30/20 14:41:00 EST,Height [...] CT measuring 4.1 cm. 2CT scan 2016 [id number]; repeat 2028 4colo 2009 nl, repeat 2019 [...]
--- OUTSIDE RECORDS SUMMARY | 2024-07-03 12:14 | XMS_ITS | Continuity of Care Document ---
Author Organization [facility] Eduardo Dawson Durga lt Address [address] [place] [address]- Care Team Providers Care Box Office Clerk Name Role Phone Joanna VO, Miko Guillen Primary Care Physician [facility] - 11/27/21 [facility] [place] Adult [address] [place] [address]- Allergies, Adverse Reactions, Alerts Substance Reaction Severity [...] n 1Admin Note: historical data 2Location History: [facility] 3Result Comment: [06/23/2016] HIGH DOSE 4Admin Note: FLUARIX 5Admin Note: VIS GIVEN 6Admin Note: [facility] info given to patient 7Admin [...] 09/02/21 9:38:00 EST, Route to Pharmacy Electronically, [facility]/pharmacy #[id number], Partial fill upon patient request if the prescription is for a schedule II opioid drug.... Start Date: 09/02/21 Status: Ordered atorvastatin 10 mg oral tablet 0.5 tablet, By Mouth, Daily, # 45 tablet, 1 Refills, [facility] STORE 43086, 155, cm, 05/16/21 12:39:00 EDT, Height Start Date: 06/07/21 Status: Ordered budesonide-formoterol 160 mcg-4.5 mcg/inh inhalation aerosol with adapter 2, puffs, Inhalation, 2 times a day, # 30.6 each, Refills 1, Route to Pharmacy Electronically, [id number], [facility], 155, cm, 05/16/21 12:39:00 EDT, Height Start Date: 06/25/21 Status: Ordered Centrum Silver By Mouth, Daily, 0 Refills, Maintenance, 01/11/17 14:23:47 Start Date: 01/11/17 Status: Ordered cloNIDine 0.1 mg oral tablet 0.1 mg, 1, tablet, By Mouth, 2 times a day, # 180 tablet, Refills 3, Tot. Refills 3, Maintenance, 09/02/21 9:38:00 EST, Route to Pharmacy Electronically, [facility]/pharmacy #[id number], Partial fill upon patientrequest if the prescription is for a schedule II op... Start Date: 09/02/21 Status: Ordered hydroCHLOROthiazide 12.5 mg oral capsule 1 capsule = 12.5 mg, By Mouth, Daily, # 90 capsule, 3 Refills, Maintenance, 10/19/21 11:02:00 EST, Capsule, [facility]/pharmacy #7111, Partial fill upon patient request if the prescription is for a scheduleII opioid drug., 155, cm, 10/05/21 13:33:00 EST, He... Start Date: 10/19/21 Status: Ordered levothyroxine 0.05 mg oral tablet 1 tablet, By Mouth, Daily, # 90 tablet, 1 Refills, [facility], 155, cm, 08/05/21 11:25:00 EST,Height Start Date: 09/01/21 Status: Ordered LORazepam 0.5 mg oral tablet 1 tablet = 0.5 mg, By Mouth, Daily, PRN for anxiety, # 24 tablet, 1 Refills, Maintenance, 09/02/21 9:33:00 EST, Tablet, [facility]/pharmacy #[id number], 155, cm, 09/02/21 8:06:00 EST, Height Start Date: 09/02/21 Status: Ordered losartan 100 mg oral tablet 1 tablet, By Mouth, Daily, # 90 tablet, 0 Refills, [facility], 155, cm, 09/02/21 8:06:00 EST, Height Start [...] 7:30:00 EST, Aerosol, Route to Pharmacy Electronically, [id number], [facility]/pharmacy #7111, 158, cm, 09/30/20 1... Start Date: 11/22/20 Stop Date: 01/21/21 Status: Ordered Spiriva HandiHaler 18 mcg inhalation capsule 1 capsule, Inhalation, Daily, # 90 capsule, 1 Refills, Maintenance, 10/07/21 11:00:00 EST, [facility], 155, cm, 10/05/21 13:33:00 EST, Height Start Date: 10/07/21 Status: Ordered valACYclovir 500 mg oral tablet 1, tablet, By Mouth, Daily, # 30 tablet, Refills 11, Route to Pharmacy Electronically, [facility] STORE 83321, 155, cm, 10/05/21 13:33:00 EST, Height Start [...]
--- OUTSIDE RECORDS SUMMARY | 2024-07-03 12:14 | XMS_ITS | Continuity of Care Document ---
Author Organization [facility] Eduardo Dawson Durga lt Address [address] [place] [address]- Care Team Providers Care Veterinary Medicine Doctor Name Role Phone Miko Marshall MD Primary Care Physician [facility]): 02/28/23 - 03/30/23 [facility] Adult [address] [place] [address]- Allergies, Adverse Reactions, Alerts Substance Reaction Severity [...] 1 Refills, Maintenance,05/25/22 15:32:00 EDT, [facility], 75, INHALE 2 PUFFS 4 TIMES A DAY WHEN NEEDED FOR WHEEZING, 155, cm, 04/27/22 14:46:00 EDT, Height, 52.25, kg, 0... Start Date: 05/25/22 Status: Ordered amLODIPine 10 mg oral tablet 10 mg, 1, tablet, By Mouth, Daily, # 90 tablet, Refills 3, Tot. Refills 3, Maintenance, 11/22/22 16:38:00 EST, Route to Pharmacy Electronically, [facility]/pharmacy #7111, Partial fill upon patient request [...] 45 tablet, 3 Refills, 04/10/22 13:41:00 EDT, [facility]/pharmacy #7111, 155, cm, 04/10/22 13:29:00 EDT, Height Start Date: 04/10/22 Status: Ordered budesonide-formoterol 160 mcg-4.5 mcg/inh inhalation aerosol with adapter 2, puffs, Inhalation, 2 times a day, # 30.6 each, Refills 1, Maintenance, 02/23/23 8:46:00 EDT, Route to Pharmacy Electronically, [id number], [facility], 155, cm, 02/21/23 10:28:00 EDT, Height, 52.25, [...] Refills, Maintenance, 12/28/22 7:50:00 EDT, [facility] STORE 76593, 155, cm, 10/16/22 12:48:00 EST, Height, 52.25, kg, 04/27/22 14:46:00 EDT, Dry Weight Start Date: 12/28/22 Status: Ordered levothyroxine 0.05 mg oral tablet 1 tablet, By Mouth, Daily, # 90 tablet, 1 Refills, Maintenance, 03/06/23 15:55:00 EDT, [facility] STORE 54876, 155, cm, 02/21/23 10:28:00 EDT, Height, 52.25, kg, 04/27/22 14:46:00 EDT, Dry Weight Start Date: 03/06/23 Status: Ordered LORazepam 0.5 mg oral tablet 1 tablet = 0.5 mg, By Mouth, Daily, PRN for anxiety, # 24 tablet, 1 Refills, Maintenance, 10/18/22 10:48:00 EST, [facility], cm, 10/16/22 12:48:00 EST, Height, 52.25, kg, 04/27/22 14:46:00 EDT, Dry Weight Start Date: 10/18/22 Status: Ordered losartan 100 mg oral tablet 1 tablet, By Mouth, Daily, # 90 tablet, 3 Refills, Maintenance, 11/22/22 16:38:00 EST, [facility]/pharmacy#7111, 155, cm, 10/16/22 12:48:00 EST, Height, 52.25, kg, 04/27/22 14:46:00 EDT, Dry Weight Start Date: 11/22/22 Status: Ordered magnesium oxide 500 mg oral tablet 1 tablet = 500 mg, By Mouth, Daily, 0 Refills, Maintenance, 06/28/18 10:06:58 EDT Start Date: 06/28/18 Status: Ordered Spiriva HandiHaler 18 mcg inhalation capsule 1 capsule, Inhalation, Daily, # 90 capsule, 1 Refills, Maintenance, 03/21/23 12:14:00 EDT, [facility], 155, cm, 02/21/23 10:28:00 EDT, Height, 52.25, kg, 04/27/22 14:46:00 EDT,Dry Weight Start Date: 03/21/23 Status: Ordered valACYclovir 500 mg oral tablet 1, tablet, By Mouth, Daily, # 30 tablet, Refills 11, Maintenance, 12/22/22 9:50:00 EDT, Route to Pharmacy Electronically, [facility]73, 155, cm, 10/16/22 12:48:00 EST, Height, 52.25, [...] Personnel Name: Maria G Mendez RN Position: [facility] RN Member Role: Primary Care Nurse Name: Barby Frias Position: [facility] Outreach Member Role: Lifetime Consulting Physician Name: Joanna VO, Miko Guillen Position: [facility] Physician - Primary Care Member Role: PCP Address: Address: [address] [place] [address]- [place] Name: Zachary Biswas MD Position: [facility] Renal MD Member Role: Lifetime Consulting Physician Address: Address: [address] [facility] [place] [address]- [place] Name: Moises BAH, Sridhar Position: [facility] RN Member Role: Primary Care Nurse Care Team Related Persons Name: MU CONTRERAS Address: [place] [address] Name: SHANELL COBIAN Address: home [address] [place] [address]
--- OUTSIDE RECORDS SUMMARY | 2024-07-03 12:14 | XMS_ITS | Continuity of Care Document ---
Author Organization [facility] Address [address] [place] [address]- Care Team Providers Care Remodeler Name Role Phone Miko Marshall MD Primary Care Physician [phone] Encounter [facility] Date(s): 11/08/23 - 02/15/24 [facility] [address] [place] [address] Attending Physician: Erich Pham MD Admitting Physician: Erich Pham MD Allergies, Adverse Reactions, Alerts Substance Reaction [...] (oldterm) 10 06/24/08 Give n 1Result Comment: [facility]: [id number] [facility] 3Result Comment: [06/23/2016] HIGH [...] 3 Refills, Maintenance, 01/01/25 15:18:00 EDT, Solution, [facility]/pharmacy #7111, Partial fill upon patient request if the prescription is for a schedule II opioid drug., 155,... Start Date: 01/01/25 Stop Date: 12/27/25 Status: Ordered albuterol 0.083% inhalation solution 3 mL = 2.5 mg, Inhalation, Every 6 hours, for 90 days, use with nebulizer, # 1,080 mL, 3 Refills, Hard Stop 01/01/25 15:18:00 EDT, 01/07/24 15:18:00 EDT, Solution, [facility]/pharmacy #7111, Partial fill upon patient request if the prescription is for a sche... Start Date: 01/07/24 Stop Date: 01/01/25 Status: Ordered amLODIPine 10 mg oral tablet 1 tablet, By Mouth, Daily, # 90 tablet, 1 Refills, Maintenance, 12/22/23 8:21:00 EDT, [facility]/pharmacy #7111, 155, cm, 10/12/23 16:44:00 EST, Height, [...] 11/20/23 9:54:00 EST, Route to Pharmacy Electronically, [id number], [facility]/pharmacy #7111, 155, cm, 10/12/23 16:44:00 EST, Height, [...] 13:34:00 EST, Route to Pharmacy Electronically, [facility]/pharmacy #7111, Partial fill upon patient request if the prescription is for a schedule II o... Start Date: 09/28/23 Stop Date: 09/22/24 Status: Ordered fluticasone 50 mcg/inh nasal spray 1 sprays, Nares, Both, 2 times a day, # 16 Gm, 11 Refills, Maintenance, 06/29/23 15:10:00 EDT, Nasal [place], [facility]/pharmacy #7111, Partial fill upon patient request if the prescription is for a scheduleII opioid drug., 1 sprays Nares, Both 2 times a day... Start Date: 06/29/23 Status: Ordered hydroCHLOROthiazide 12.5 mg oral capsule 1 capsule, By Mouth, Daily, # 90 capsule, 3 Refills, Maintenance, 12/28/22 7:50:00 EDT, [facility], 155, cm, 10/16/22 12:48:00 EST, Height, 52.25, kg, 04/27/22 14:46:00 EDT, Dry Weight Start Date: 12/28/22 Status: Ordered levothyroxine 0.05 mg oral tablet 1 tablet, By Mouth, Daily, # 90 tablet, 0 Refills, Maintenance, 11/26/23 9:51:00 EDT, [facility], 155, cm, 10/12/23 16:44:00 EST, Height, 52.25, kg, 04/27/22 14:46:00 EDT, Dry Weight Start Date: 11/26/23 Status: Ordered LORazepam 0.5 mg oral tablet 1 tablet = 0.5 mg, By Mouth, Daily, PRN for anxiety, # 24 tablet, 1 Refills, Maintenance, 12/11/23 9:46:00 EDT, Tablet, [facility]/pharmacy #7111, 155, cm, 10/12/23 16:44:00 EST, Height, 52.25, kg, 04/27/2214:46:00 EDT, Dry Weight Start Date: 12/11/23 Status: Ordered losartan 100 mg oral tablet 1 tablet, By Mouth, Daily, # 90 tablet, 1 Refills, Maintenance, 12/22/23 8:20:00 EDT, [facility]/pharmacy #7111, 155, cm, 10/12/23 16:44:00 EST, Height, [...] capsule, 4 Refills, Maintenance, 11/20/23 9:54:00 EST, [facility]/pharmacy #7111, 155, cm, 10/12/23 16:44:00 EST, Height, 52.25, kg, 04/27/22 14:46:00 EDT, Dry Weight Start Date: 11/20/23 Status: Ordered Spiriva HandiHaler 18 mcg inhalation capsule 1 capsule = 18 mcg, Inhalation, Daily, # 90 capsule, 3 Refills, Maintenance, 01/07/24 15:17:00 EDT,[facility]/pharmacy #7111, Partial fill upon patient request if the prescription is for a schedule II opioid drug., 155, cm, 01/07/24 14:45:00 EDT, Height, 52... Start Date: 01/07/24 Stop Date: 01/01/25 Status: Ordered Symbicort 160mcg/4.5mcg Inhaler 2, puffs, Inhalation, 2 times a day, # 3 each, Refills 3, Tot. Refills 3, Maintenance, 01/07/24 15:17:00 EDT, Aerosol, Route to Pharmacy Electronically, [id number], [facility]/pharmacy #7111, 155, cm, 01/07/24 14:45:00 EDT, Height,... Start Date: 01/07/24 Stop Date: 01/01/25 Status: Ordered valACYclovir 500 mg oral tablet 1, tablet, By Mouth, Daily, # 30 tablet, Refills 11, Maintenance, 12/22/22 9:50:00 EDT, Route to Pharmacy Electronically, [facility] 75994, 155, cm, 10/16/22 12:48:00 EST, Height, 52.25, kg, 04/27/22 14:46:00 EDT, Dry Weight Start Date: 12/22/22 Status: Ordered Ventolin HFA 108 mcg/inh inhalation aerosol with adapter 2 puffs, Inhalation, Every 6 hours, PRN for wheezing, # 8 Gm, 11 Refills, Maintenance, 11/20/23 9:54:00 EST, Aerosol, [facility]/pharmacy #7111, Partial fill upon patient [...] Personnel Name: Maria G Mendez RN Position: [facility] RN Member Role: Primary Care Nurse Name: Barby Frias Position: [facility] Outreach Member Role: Lifetime Consulting Physician Name: Miko Marshall MD Position: [facility] Physician - Primary Care Member Role: PCP Address: Address: [address] [place] [address]- [place] Name: Zachary Biswas MD Position: [facility] Renal MD Member Role: Lifetime Consulting Physician Address: Address: [address] [facility] [place] [address]- [place] Name: Srdihar De Leon RN Position: [facility] RN Member Role: Primary Care Nurse Care Team Related Persons Name: MU CONTRERAS Address: [place] [address] Name: SHANELL COBIAN Address: [address] [address]
--- OUTSIDE RECORDS SUMMARY | 2024-07-03 12:15 | XMS_ITS | Continuity of Care Document ---
Author Organization [facility] Eduardo Dawson Durga lt Address [address] [place] [address]- Care Team Providers Care Detective Homicide Squad Name Role Phone Miko Marshall MD Primary Care Physician [facility]23 - 12/16/23 [facility] [place] Adult [address] [place] [address]- Allergies, Adverse Reactions, Alerts Substance Reaction Severity [...] (oldterm) 10 06/24/08 Give n 1Result Comment: [facility]: [id number] 2Location History: [facility] 3Result Comment: [06/23/2016] HIGH DOSE 4Admin Note: FLUARIX 5Admin Note: VIS GIVEN 6Admin Note: [facility] info given to patient 7Admin [...] 16:38:00 EST, Route to Pharmacy Electronically, [facility]/pharmacy #[id number], Partial fill upon patient request if the [...] 11/20/23 9:54:00 EST, Route to Pharmacy Electronically, [id number], [facility]/pharmacy #7111, 155, cm, [...] 09/28/23 13:34:00 EST, [id number] fill upon patient request if the prescription is for a schedule II o... Start Date: 09/28/23 Stop Date: 09/22/24 Status: Ordered fluticasone 50 mcg/inh nasal spray 1 sprays, Nares, Both, 2 times a day, # 16 Gm, 11 Refills, Maintenance, 06/29/23 15:10:00 EDT, Nasal [place], [facility]/pharmacy #7111, Partial fill upon patient request if the prescription is for a scheduleII opioid drug., 1 sprays Nares, Both 2 times a day... Start Date: 06/29/23 Status: Ordered hydroCHLOROthiazide 12.5 mg oral capsule 1 capsule, By Mouth, Daily, # 90 capsule, 3 Refills, Maintenance, 12/28/22 7:50:00 EDT, [facility], 155, cm, 10/16/22 12:48:00 EST, Height, 52.25, kg, 04/27/22 14:46:00 EDT, Dry Weight Start Date: 12/28/22 Status: Ordered levothyroxine 0.05 mg oral tablet 1 tablet, By Mouth, Daily, # 90 tablet, 0 Refills, Maintenance, 11/26/23 9:51:00 EDT, [facility] STORE 49726, 155, cm, 10/12/23 16:44:00 EST, Height, 52.25, [...] 3 Refills, Maintenance, 11/22/22 16:38:00 EST, [facility]/pharmacy#7111, 155, cm, 10/16/22 12:48:00 EST, [...] capsule, 4 Refills, Maintenance, 11/20/23 9:54:00 EST, [facility]/pharmacy #7111, 155, cm, 10/12/23 16:44:00 EST, Height, 52.25, kg, 04/27/22 14:46:00 EDT, Dry Weight Start Date: 11/20/23 Status: Ordered valACYclovir 500 mg oral tablet 1, tablet, By Mouth, Daily, # 30 tablet, Refills 11, Maintenance, 12/22/22 9:50:00 EDT, Route to Pharmacy Electronically, [facility] STORE 00113, 155, cm, 10/16/22 12:48:00 EST, Height, 52.25, [...] CT measuring 4.1 cm. 2CT scan 2016 [address]; repeat 2028 4colo 2009 nl, repeat 2019 [...] Personnel Name: Maria G Mendez RN Position: [facility] RN Member Role: Primary Care Nurse Name: Barby Frias Position: [facility] Outreach Member Role: Lifetime Consulting Physician Name: Miko Marshall MD Position: [facility] Physician - Primary Care Member Role: PCP Address: Address: [address] [place] [address]- Name: Zachary Biswas MD Position: [facility] Renal MD Member Role: Lifetime Consulting Physician Address: Address: [address] [place] [address] [address] [facility] [place] [address]- [place] Name: Moises BAH, Sridhar Position: [facility] RN Member Role: Primary Care Nurse Care Team Related Persons Name: MU CONTRERAS Address: [place] [address] Name: SHANELL COBIAN Address: [address] [address]
--- OUTSIDE RECORDS SUMMARY | 2024-07-03 12:15 | XMS_ITS | Continuity of Care Document ---
Author Organization [facility] Eduardo Dawson Durga lt Address [address] [place] [address]- Care Team Providers Care Coordinator Of Online Programs Name Role Phone Joanna VO, Miko Guillen Primary Care Physician [facility] 06[facility]20 - 07/22/20 [facility] Adult [address] [place] [address]- Allergies, Adverse Reactions, Alerts Substance Reaction Severity [...] FLUARIX 4Admin Note: VIS GIVEN 5Admin Note: [facility] info given to patient 6Admin Note: GIANCARLO 7Result Comment: OOP 8Admin Note: [facility] 9Admin Note: Information sheet given 10Admin Note: given in clinic 11Admin Note: historical data Medications acetaminophen/butalbital/caffeine 325 mg-50 mg-40 mg oral capsule 1 capsule, By Mouth, Every 4 hours, PRN as needed, not to exceed 6 capsules/day, # 12 capsule, 0 Refills, Maintenance, 01/21/20 11:38:00 EDT, Capsule, [facility]/pharmacy #7111, 1 capsule By Mouth Every 4 hours,PRN:as needed,Instr:not to exceed 6 capsules/da... Start Date: 01/21/20 Status: Ordered amLODIPine 5 mg oral tablet 5 mg, 1, tablet, By Mouth, Daily, # 90 tablet, Refills 3, Tot. Refills 3, Maintenance, 06/21/20 13:28:00 EDT, [id number], cm, 06/21/20 12:56:00 EDT, Height Start Date: 06/21/20 Status: Ordered atorvastatin 10 mg oral tablet 0.5, By Mouth, Daily, # 45 tablet, 1 Refills, Maintenance, 04/06/20 8:27:00 EDT, Tablet, [facility]/pharmacy #7111, 158, cm, 03/10/20 14:43:00 EDT, [...] 07/08/20 10:01:00 EDT, [facility] Electronically, [facility] 158, cm, 07/08/20 9:36:00 EDT, Height Start Date: 07/08/20 Status: Ordered levothyroxine 0.05 mg oral tablet 1 tablet, By Mouth, Daily, # 90 tablet, 1 Refills, Maintenance, 03/13/20 20:13:00 EDT, [facility]/pharmacy#7111, 158, cm, 03/10/20 14:43:00 EDT, Height, 57.6, kg, 05/21/18 14:53:00 EDT, Dry Weight Start Date: 03/13/20 Status: Ordered LORazepam 0.5 mg oral tablet 1 tablet = 0.5 mg, By Mouth, Daily, PRN for anxiety, , # 24 tablet, 1 Refills, Maintenance, 09/12/19 13:53:00 EST, Tablet, [facility], 158, cm, 05/22/19 10:37:00 EDT, Height, [...] tablet, 1 Refills, Maintenance, 03/26/20 14:17:00 EDT, [facility]/pharmacy #7111, 158, cm, 03/10/20 14:43:00 EDT, Height, 57.6, kg, 05/21/18 14:53:00 EDT, Dry Weight Start Date: 03/26/20 Stop Date: 05/25/20 Status: Ordered ProAir HFA 90 mcg/inh inhalation aerosol with adapter 2, puffs, Inhalation, 4 times a day, PRN, NEW RX PER AFAY, # 3 each, Refills 1, Tot. Refills 1, Maintenance, 07/30/19 14:51:47 EST, Aerosol, Route to Pharmacy Electronically, [id number], [facility]/pharmacy #7111 Start Date: 07/30/19 Status: Ordered [...] 12:01:00 EDT, Aerosol, Route to Pharmacy Electronically, [id number], [facility], 158, cm, 06/21/20 12:56:0... Start Date: 06/30/20 Status: Ordered Valtrex 500 mg oral tablet 500 mg, 1, tablet, By Mouth, Daily, # 30 tablet, Refills 11, Tot. Refills 11, Maintenance, 07/25/1811:27:07 EST, Route to Pharmacy Electronically, [id number], [facility]/pharmacy #7111 Start Date: 07/25/18 Status: Ordered [...]
--- OUTSIDE RECORDS SUMMARY | 2024-07-03 12:15 | XMS_ITS | Continuity of Care Document ---
Author Organization [facility] Address [address] [place] [address]- Care Team Providers Care Jig Operator Name Role Phone Miko Marshall MD Primary Care Physician [facility]): 08[facility]21 - 09/04/21 [facility] [address] [place] [address]- Attending Physician: [facility] [place] Admitting Physician: AdmtrPaco Referring Physician: Admtr, Ar8 [...] inactivated 07/06/20 Recorded Influenza Virus Vaccine (oldterm) 10/1/20 Recorde d Influenza Virus Vaccine (oldterm) 06/13/20 [...] toxoids (Td) 11 01/17/04 Given 1Location History: [facility] 2Result Comment: [06/23/2016] HIGH DOSE 3Admin Note: FLUARIX 4Admin Note: VIS GIVEN 5Admin Note: [facility] info given to patient 6Admin Note: GIANCARLO [...] 9:38:00 EST, Route to Pharmacy Electronically, [facility]/pharmacy #7101, Partial fill upon patient request if the prescription is for a schedule II opioid drug.... Start Date: 09/02/21 Status: Ordered atorvastatin 10 mg oral tablet 0.5 tablet, By Mouth, Daily, # 45 tablet, 1 Refills, [facility] [address], 155, cm, 05/16/21 12:39:00 EDT, Height Start Date: 06/07/21 Status: Ordered budesonide-formoterol 160 mcg-4.5 mcg/inh inhalation aerosol with adapter 2, puffs, Inhalation, 2 times a day, # 30.6 each, Refills 1, Route to Pharmacy Electronically, [id number], [facility] [address]80, 155, cm, 05/16/21 12:39:00 EDT, Height Start Date: 06/25/21 Status: Ordered Centrum Silver By Mouth, Daily, 0 Refills, Maintenance, 01/11/17 14:23:47 Start Date: 01/11/17 Status: Ordered cloNIDine 0.1 mg oral tablet 0.1 mg, 1, tablet, By Mouth, 2 times a day, # 180 tablet, Refills 3, Tot. Refills 3, Maintenance, 09/02/21 9:38:00 EST, Route to Pharmacy Electronically, [id number] Partial fill upon patientrequest if the prescription is for a schedule II op... Start Date: 09/02/21 Status: Ordered levothyroxine 0.05 mg oral tablet 1 tablet, By Mouth, Daily, # 90 tablet, 1 Refills, [facility] [address], 155, cm, 08/05/21 11:25:00 EST,Height Start Date: 09/01/21 Status: Ordered LORazepam 0.5 mg oral tablet 1 tablet = 0.5 mg, By Mouth, Daily, PRN for anxiety, # 24 tablet, 1 Refills, Maintenance, 09/02/21 9:33:00 EST, Tablet, [facility]/pharmacy #7111, 155, cm, 09/02/21 8:06:00 EST, Height Start Date: 09/02/21 Status: Ordered losartan 100 mg oral tablet 1 tablet, By Mouth, Daily, # 90 tablet, 1 Refills, Maintenance, 03/19/21 21:39:00 EDT, [facility] [address], 158, cm, 03/16/21 9:06:00 EDT, Height Start [...] 7:30:00 EST, Aerosol, Route to Pharmacy Electronically, [id number], [facility]/pharmacy #7111, 158, cm, 09/30/20 1... Start Date: 11/22/20 Stop Date: 01/21/21 Status: Ordered Spiriva HandiHaler 18 mcg inhalation capsule 1 capsule, Inhalation, Daily, # 90 capsule, 1 Refills, Maintenance, 02/22/21 14:59:00 EDT, [facility], 158, cm, 02/01/21 9:13:00 EDT, Height Start Date: 02/22/21 Status: Ordered Valtrex 500 mg oral tablet 500 mg, 1, tablet, By Mouth, Daily, # 30 tablet, Refills 11, Tot. Refills 11, Maintenance, 10/19/2111:02:00 EST, Route to Pharmacy Electronically, [facility], 158, cm, 09/30/20 14:41:00 [...] CT measuring 4.1 cm. 2CT scan 2015 [address]; repeat 2028 4colo 2008 nl, repeat 2018 [...]
--- OUTSIDE RECORDS SUMMARY | 2024-07-03 12:15 | XMS_ITS | Continuity of Care Document ---
Author Organization [facility] Eduardo Dawson Durga lt Address [address] [place] [address]- Care Team Providers Care Quality Consultant Name Role Phone Joanna VO, Miko Guillen Primary Care Physician [phone] [facility]counter [facility] Date[facility]s): 06/05/23 - 07/05/23 [facility] Eduardo [place] Adult [address] [place] [address]- Allergies, Adverse Reactions, Alerts Substance Reaction Severity [...] 10 06/24/08 Give n 1Result Comment: [facility]: [id number] [facility] 3Result Comment: [06/23/2016] HIGH DOSE 4Admin Note: FLUARIX 5Admin Note: VIS GIVEN 6Admin Note: [facility] info given to patient 7Admin Note: [facility] [...] 1 Refills, Maintenance,05/25/22 15:32:00 EDT, [facility], 75, INHALE 2 PUFFS 4 TIMES A DAY WHEN NEEDED FOR WHEEZING, 155, cm, 04/27/22 14:46:00 EDT, Height, 52.25, kg, 0... Start Date: 05/25/22 Status: Ordered amLODIPine 10 mg oral tablet 10 mg, 1, tablet, By Mouth, Daily, # 90 tablet, Refills 3, Tot. Refills 3, Maintenance, 11/22/22 16:38:00 EST, Route to Pharmacy Electronically, [facility]/pharmacy #[id number], Partial fill upon patient request if [...] 6 Refills, Maintenance, 06/29/23 15:09:00 EDT, [facility]/pharmacy #[id number], 155, cm, 06/29/23 14:50:00 EDT, Height, 52.25, kg, 04/27/22 14:46:00 EDT, Dry Weight Start Date: 06/29/23 Status: Ordered budesonide-formoterol 160 mcg-4.5 mcg/inh inhalation aerosol with adapter 2, puffs, Inhalation, 2 times a day, # 30.6 each, Refills 1, Maintenance, 02/23/23 8:46:00 EDT, Route to Pharmacy Electronically, [id number], [facility], 155, cm, 02/21/23 10:28:00 EDT, Height, 52.25, [...] 11 Refills, Maintenance, 06/29/23 15:10:00 EDT, [place], [facility]/pharmacy #7111, Partial fill upon patient request if the prescription is for a scheduleII opioid drug., 1 sprays Nares, Both 2 times a day... Start Date: 06/29/23 Status: Ordered hydroCHLOROthiazide 12.5 mg oral capsule 1 capsule, By Mouth, Daily, # 90 capsule, 3 Refills, Maintenance, 12/28/22 7:50:00 EDT, [facility], 155, cm, 10/16/22 12:48:00 EST, Height, 52.25, kg, 04/27/22 14:46:00 EDT, Dry Weight Start Date: 12/28/22 Status: Ordered levothyroxine 0.05 mg oral tablet 1 tablet, By Mouth, Daily, # 90 tablet, 1 Refills, Maintenance, 03/06/23 15:55:00 EDT, [facility], 155, cm, 02/21/23 10:28:00 EDT, Height, 52.25, kg, 04/27/22 14:46:00 EDT, Dry Weight Start Date: 03/06/23 Status: Ordered LORazepam 0.5 mg oral tablet 1 tablet = 0.5 mg, By Mouth, Daily, PRN for anxiety, # 24 tablet, 1 Refills, Maintenance, 10/18/22 10:48:00 EST, Tablet, [facility]/pharmacy #7111, 155, cm, 10/16/22 12:48:00 EST, Height, 52.25, kg, 04/27/22 14:46:00 EDT, Dry Weight Start Date: 10/18/22 Status: Ordered losartan 100 mg oral tablet 1 tablet, By Mouth, Daily, # 90 tablet, 3 Refills, Maintenance, 11/22/22 16:38:00 EST, [facility]/pharmacy#7111, 155, cm, 10/16/22 12:48:00 EST, Height, 52.25, [...] 0 Refills, Maintenance, 06/29/23 15:11:00 EDT, ECCapsule, [facility]/pharmacy #7111, Partial fill upon patient request if the prescription is for a schedule II opioid drug., 155, cm, 06/29/23 14:50:00 EDT, H... Start Date: 06/29/23 Status: Ordered Spiriva HandiHaler 18 mcg inhalation capsule 1 capsule, Inhalation, Daily, # 90 capsule, 1 Refills, Maintenance, 03/21/23 12:14:00 EDT, [facility], 155, cm, 02/21/23 10:28:00 EDT, Height, 52.25, kg, 04/27/22 14:46:00 EDT,Dry Weight Start Date: 03/21/23 Status: Ordered valACYclovir 500 mg oral tablet 1, tablet, By Mouth, Daily, # 30 tablet, Refills 11, Maintenance, 12/22/22 9:50:00 EDT, Route to Pharmacy Electronically, [facility], 155, cm, 10/16/22 12:48:00 EST, Height, 52.25, [...] Care Member Role: PCP Address: Address: [address] [place] [address]- [place] Name: Zachary Biswas MD Position: [facility] Renal MD Member Role: Lifetime Consulting Physician Address: Address: [address] [place] [address] [address] [facility] [place] [address]- Name: Sridhar De Leon RN Position: [facility] RN Member Role: Primary Care Nurse Care Team Related Persons Name: MU CONTRERAS Address: [place] [address] Name: SHANELL COBIAN Address: home [address] [place] [id number]
--- OUTSIDE RECORDS SUMMARY | 2024-07-03 12:15 | XMS_ITS | Continuity of Care Document ---
Author Organization [facility] Eduardo Dawson Durga lt Address [address] [place] [address]- Care Team Providers Care Member Of Technical Staff Name Role Phone Miko [place] MD Primary Care Physician [place] [facility] Date(s): 10/05/21 - 10/12/21 [facility] Adult [address] [place] [address]- Encounter Diagnosis COPD (chronic obstructive pulmonary disease)(Discharge Diagnosis) - 10/05/21 HTN (hypertension)(Discharge Diagnosis) - 10/05/21 Hypercholesterolemia(Discharge Diagnosis) - 10/05/21 Thoracic aortic aneurysm(Discharge Diagnosis) - 10/05/21 Insomnia(Discharge Diagnosis) - 10/05/21 Alcohol intake above recommended sensible limits without complication(Discharge Diagnosis) - 10/05/21 Subclinical hypothyroidism(Discharge Diagnosis) - 10/05/21 Attending Physician: Miko [place] MD Allergies, Adverse [...] n 1Admin Note: historical data [facility] 3Result Comment: [06/23/2016] HIGH DOSE 4Admin Note: FLUARIX 5Admin Note: VIS GIVEN 6Admin Note: [facility] info given to patient 7Admin [...] Route to Pharmacy Electronically, [facility]/pharmacy #0231, Partial fill upon patient request if the prescription is for a schedule II opioid drug.... Start Date: 09/02/21 Status: Ordered atorvastatin 10 mg oral tablet 0.5 tablet, By Mouth, Daily, # 45 tablet, 1 Refills, [facility], 155, cm, 05/16/21 12:39:00 EDT, Height Start Date: 06/07/21 Status: Ordered budesonide-formoterol 160 mcg-4.5 mcg/inh inhalation aerosol with adapter 2, puffs, Inhalation, 2 times a day, # 30.6 each, Refills 1, Route to Pharmacy Electronically, [id number], [facility], 155, cm, 05/16/21 12:39:00 EDT, Height Start [...] # 90 tablet, 1 Refills, [facility], 155, cm, 08/05/21 11:25:00 EST,Height Start Date: [...] # 90 tablet, 0 Refills, [facility], 155, cm, 09/02/21 8:06:00 EST, Height Start [...] 7:30:00 EST, Aerosol, Route to Pharmacy Electronically, [id number], [facility]/pharmacy #7111, 158, cm, 09/30/20 [...] Maintenance, 10/19/2111:02:00 EST, Route to Pharmacy Electronically, [facility]/pharmacy #7111, 158, cm, 09/30/20 14:41:00 [...] CT measuring 4.1 cm. 2CT scan 2016 12125; repeat 2028 4colo 2008 nl, repeat 2018 5colo 2018 6egd 2012 no barretts 7colo 2018 8Status post laparotomy with lysis of adhesions and repair of incarcerated ventral hernia. Surgery performed March 2018. 9Thyroid peroxidase antibody positive Diagnosis Diagnosis Type Effective Dates Health Status Clinical Service Informant COPD (chronic obstructive pulmonary disease) Discharge Diagnosis 10/05/21 HTN (hypertension) Discharge Diagnosis 10/05/21 Hypercholesterolemia Discharge Diagnosis 10/05/21 Thoracic aortic aneurysm Discharge Diagnosis 10/05/21 Insomnia Discharge Diagnosis 10/05/21 Alcohol intake above recommended sensible limits without complication Discharge Diagnosis 10/05/21 Subclinical hypothyroidism Discharge Diagnosis 10/05/21 Vital Signs Most recent to oldest [Reference Range]: 1 Height 155 cm (10/05/21 1:33 PM) Weight 54.6 kg (10/05/21 1:33 PM) Body Mass Index [18.5-24.99] 22.73 (10/05/21 1:33 PM) Blood Pressure [90-138/55-84 mm Hg] 110/ 72mm Hg (10/05/21 1:33 PM) Blood pressure sites Arm, left (10/05/21 1:33 PM) Weight Obtained Via Standing scale (10/05/21 1:33 PM) Social History Social History Type Response Smoking Status Former smoker; Other : quit 15 years ago; entered on: 03/16/16 Sex Female
--- OUTSIDE RECORDS SUMMARY | 2024-07-03 12:15 | XMS_ITS | Continuity of Care Document ---
Author Organization [facility] Eduardo Dwason Durga lt Address [address] [place] [address]- Care Team Providers Care Senior Account Director Name Role Phone Joanna VO, Miko Guillen Primary Care Physician [facility] Date[facility]s): 09/30/20 - 10/07/20 [facility] Adult [address] [place] [address]- Encounter Diagnosis HTN (hypertension)(Discharge Diagnosis) - 09/30/20 Constipation(Discharge Diagnosis) - 09/30/20 Attending Physician: Brenda Jackson NP Referring Physician: [...] 0 Refills, Maintenance, 01/21/20 11:38:00 EDT, Capsule, [facility]/pharmacy #[id number], 1 capsule By Mouth Every 4 hours,PRN:as needed,Instr:not to exceed 6 capsules/da... Start Date: 01/21/20 Status: Ordered amLODIPine 2.5 mg oral tablet 2.5 mg, 1, tablet, By Mouth, Daily, # 30 tablet, Refills 5, Tot. Refills 5, Maintenance, 09/01/20 11:20:00 EST, Route to Pharmacy Electronically, [facility]/pharmacy #[id number], Partial fill upon patient requestif the prescription is for a schedule II opioid tian... Start Date: 09/01/20 Status: Ordered atorvastatin 10 mg oral tablet 0.5, By Mouth, Daily, # 45 tablet, 1 Refills, Maintenance, 04/06/20 8:27:00 EDT, Tablet, [facility]/pharmacy #7111, 158, cm, 03/10/20 14:43:00 EDT, [...] 09/01/20 11:20:00 EST, [id number] Partial fill upon patientrequest if the prescription is for a schedule II op... Start Date: 09/01/20 Status: Ordered levothyroxine 0.05 mg oral tablet 1 tablet, By Mouth, Daily, # 90 tablet, 1 Refills, Maintenance, 09/07/20 9:19:00 EST, [facility]/pharmacy #7111, 158, cm, 09/01/20 9:29:00 EST, Height Start Date: 09/07/20 Status: Ordered LORazepam 0.5 mg oral tablet 1 tablet = 0.5 mg, By Mouth, Daily, PRN for anxiety, # 24 tablet, 1 Refills, Maintenance, 08/09/20 10:16:00 EST, Tablet, [facility]/pharmacy #7111, 158, cm, 08/09/20 9:40:00 EST, Height Start Date: 08/09/20 Status: Ordered losartan 100 mg oral tablet 1 tablet = 100 mg, By Mouth, Daily, # 30 tablet, 5 Refills, Maintenance, 09/01/20 11:21:00 EST, Tablet, [facility]/pharmacy #7111, Partial fill upon patient request [...] tablet, 1 Refills, Maintenance, 03/26/20 14:17:00 EDT, [facility]/pharmacy #7111, 158, cm, 03/10/20 14:43:00 EDT, Height, 57.6, kg, 05/21/18 14:53:00 EDT, Dry Weight Start Date: 03/26/20 Stop Date: 05/25/20 Status: Ordered ProAir HFA 90 mcg/inh inhalation aerosol with adapter 2, puffs, Inhalation, 4 times a day, PRN, NEW RX PER AFAY, # 3 each, Refills 1, Tot. Refills 1, Maintenance, 07/30/19 14:51:47 EST, Aerosol, Route to Pharmacy Electronically, [id number], [facility]/pharmacy #7111 Start Date: 07/30/19 Status: Ordered [...] 12:01:00 EDT, Aerosol, Route to Pharmacy Electronically, [id number], [facility]/pharmacy #7111, 158, cm, 06/21/20 12:56:0... Start Date: 06/30/20 Status: Ordered Valtrex 500 mg oral tablet 500 mg, 1, tablet, By Mouth, Daily, # 30 tablet, Refills 11, Tot. Refills 11, Maintenance, 07/25/1811:27:07 EST, Route to Pharmacy Electronically, [id number], [facility]/pharmacy #7111 Start Date: 07/25/18 Status: Ordered [...] CT measuring 4.1 cm. 2CT scan 2015 88937; repeat 2028 4colo 2008 nl, repeat 2018 5colo 2019 6egd 2012 no barretts 7colo 2019 8Status post laparotomy with lysis of adhesions and repair of incarcerated ventral hernia. Surgery performed March 2018. 9Thyroid peroxidase antibody positive Diagnosis Diagnosis Type Effective Dates Health Status Clinical Service Informant HTN (hypertension) Discharge Diagnosis 09/30/20 Constipation Discharge Diagnosis 09/30/20 Vital Signs Most recent to oldest [Reference Range]: 1 2 Height 158 cm (09/30/20 2:41 PM) 158 cm (09/30/20 2:34 PM) Oxygen Saturation [94-100 %] 99 % (09/30/20 2:34 PM) Blood Pressure [90-138/55-84 mm Hg] 115/ 78mm Hg (09/30/20 2:41 PM) 152/92mm Hg *H* (09/30/20 2:34 PM) Blood pressure sites Arm, left (09/30/20 2:34 PM) Social History Social History Type Response Smoking Status Former smoker; Other : quit 15 years ago; entered on: 03/16/16 Sex Female
--- OUTSIDE RECORDS SUMMARY | 2024-07-03 12:15 | XMS_ITS | Continuity of Care Document ---
Author Organization [facility] Eduardo Dawson Durga lt Address [address] [place] [address]- Care Team Providers Care Assembling Machine Operator Name Role Phone Miko [place] MD Primary Care Physician [facility] Date[facility]s): 04/13/22 - 05/13/22 [facility] Adult [address] [place] [address]- Allergies, Adverse Reactions, Alerts Substance Reaction Severity [...] 1Admin Note: historical data 2Location History: [facility] 3Result Comment: [06/23/2016] HIGH DOSE 4Admin Note: FLUARIX 5Admin Note: VIS GIVEN 6Admin Note: [facility] info given to patient 7Admin Note: [...] 9:38:00 EST, Route to Pharmacy Electronically, [facility]/pharmacy #[id number], Partial fill upon patient request if the prescription is for a schedule II opioid drug.... Start Date: 09/02/21 Status: Ordered atorvastatin 10 mg oral tablet 0.5 tablet, By Mouth, Daily, # 45 tablet, 3 Refills, 04/10/22 13:41:00 EDT, [facility]/pharmacy #[id number], 155, cm, 04/10/22 13:29:00 EDT, Height Start Date: 04/10/22 Status: Ordered budesonide-formoterol 160 mcg-4.5 mcg/inh inhalation aerosol with adapter 2, puffs, Inhalation, 2 times a day, # 30.6 each, Refills 1, Route to Pharmacy Electronically, [id number], [facility], 155, cm, 05/16/21 12:39:00 EDT, Height Start Date: 06/25/21 Status: Ordered Centrum Silver By Mouth, Daily, 0 Refills, Maintenance, 01/11/17 14:23:47 Start Date: 01/11/17 Status: Ordered cloNIDine 0.1 mg oral tablet 0.1 mg, 1, tablet, By Mouth, 2 times a day, # 180 tablet, Refills 3, Tot. Refills 3, Maintenance, 09/02/21 9:38:00 EST, Route to Pharmacy Electronically, [facility]/pharmacy #[id number], Partial fill upon patientrequest if the prescription is for a schedule II op... Start Date: 09/02/21 Status: Ordered hydroCHLOROthiazide 12.5 mg oral capsule 1 capsule = 12.5 mg, By Mouth, Daily, # 90 capsule, 3 Refills, Maintenance, 10/19/21 11:02:00 EST, Capsule, [facility]/pharmacy #[id number], Partial fill upon patient request if the prescription is for a scheduleII opioid drug., 155, cm, 10/05/21 13:33:00 EST, He... Start Date: 10/19/21 Status: Ordered levothyroxine 0.05 mg oral tablet See Instructions, TAKE 1 TABLET BY MOUTH EVERY DAY, # 90 tablet, 3 Refills, [facility], 155, cm, 04/10/22 13:29:00 EDT, Height Start Date: 04/10/22 Status: Ordered LORazepam 0.5 mg oral tablet 1 tablet = 0.5 mg, By Mouth, Daily, PRN for anxiety, # 24 tablet, 1 Refills, Maintenance, 09/02/21 9:33:00 EST, Tablet, [facility]/pharmacy #[id number], 155, cm, 09/02/21 8:06:00 EST, Height Start Date: 09/02/21 Status: Ordered losartan 100 mg oral tablet 1 tablet, By Mouth, Daily, # 90 tablet, 1 Refills, [facility], 155, cm, 11/14/21 13:39:00 EST,Height Start Date: [...] 7:30:00 EST, Aerosol, Route to Pharmacy Electronically, [id number], [facility]/pharmacy #7111, 158, cm, 09/30/20 1... Start Date: 11/22/20 Stop Date: 01/21/21 Status: Ordered Spiriva HandiHaler 18 mcg inhalation capsule 1 capsule, Inhalation, Daily, # 90 capsule, 1 Refills, Maintenance, 10/07/21 11:00:00 EST, [facility], 155, cm, 10/05/21 13:33:00 EST, Height Start Date: 10/07/21 Status: Ordered tiZANidine 2 mg oral capsule 1 capsule = 2 mg, By Mouth, Every 8 hours, # 42 capsule, 0 Refills, Maintenance, 03/10/22 13:48:00 EDT, [facility]/pharmacy #7111, Partial fill upon patient request if the prescription is for a schedule II opioid drug., 155, cm, 03/10/22 13:27:00 EDT, Height Start Date: 03/10/22 Stop Date: 03/24/22 Status: Ordered valACYclovir 500 mg oral tablet 1, tablet, By Mouth, Daily, # 30 tablet, Refills 11, Route to Pharmacy Electronically, [facility] STORE [facility], 155, cm, 10/05/21 13:33:00 EST, Height Start [...] CT measuring 4.1 cm. 2CT scan 2016 52339; repeat 2028 4colo 2009 nl, repeat 2019 [...] Team Personnel Name: Miko [place] MD Address: [address] [place] [id number]-
--- OUTSIDE RECORDS SUMMARY | 2024-07-03 12:15 | XMS_ITS | Continuity of Care Document ---
Author Organization [facility] Durga lt Address [address] [place] [id number]- Care Team Providers Care Plastics Engineering Teacher Name Role Phone Miko [place] MD Primary Care Physician [phone] [facility]): 10/18[facility]22 - 11/17/22 [facility] Adult [address] [place] [address]- Allergies, Adverse Reactions, Alerts Substance Reaction Severity [...] 25.5 each, 1 Refills, Maintenance,05/25/22 15:32:00 EDT, [facility], 75, INHALE 2 PUFFS 4 TIMES A DAY WHEN NEEDED FOR WHEEZING, 155, cm, 04/27/22 14:46:00 EDT, Height, 52.25, kg, 0... Start Date: 05/25/22 Status: Ordered amLODIPine 10 mg oral tablet 10 mg, 1, tablet, By Mouth, Daily, # 90 tablet, Refills 3, Tot. Refills 3, Maintenance, 09/02/21 9:38:00 EST, Route to Pharmacy Electronically, [facility]/pharmacy #7111, Partial fill upon patient request if the prescription is for a schedule II opioid drug.... Start Date: 09/02/21 Status: Ordered atorvastatin 10 mg oral tablet 0.5 tablet, By Mouth, Daily, # 45 tablet, 3 Refills, 04/10/22 13:41:00 EDT, [facility]/pharmacy #7111, 155, cm, 04/10/22 13:29:00 EDT, Height Start Date: 04/10/22 Status: Ordered brompheniramine/dextromethorphan/pseudoephedrine 1 mg-5 mg-15 mg/5 mL oral liquid 5 mL, By Mouth, 2 times a day, PRN Cough, # 473 mL, 1 Refills, Maintenance, 10/16/22 13:18:00 EST, [facility]/pharmacy #7111, Partial fill upon [...] 1, 07/17/22 13:30:00 EDT,Route to Pharmacy Electronically, [id number], [facility]/pharmacy #7111, 155, cm, 06/12/22 14:03:00 EDT, Height, 52.25, kg, 04/27/22... Start Date: 07/17/22 Status: Ordered Centrum Silver By Mouth, Daily, 0 Refills, Maintenance, 01/11/17 14:23:47 Start Date: 01/11/17 Status: Ordered cloNIDine 0.1 mg oral tablet 0.1 mg, 1, tablet, By Mouth, 2 times a day, # 180 tablet, Refills 3, Tot. Refills 3, Maintenance, 09/02/21 9:38:00 EST, Route to Pharmacy Electronically, [facility]/pharmacy #[id number], Partial fill upon patientrequest if the prescription is for a schedule II op... Start Date: 09/02/21 Status: Ordered hydroCHLOROthiazide 12.5 mg oral capsule 1 capsule = 12.5 mg, By Mouth, Daily, # 90 capsule, 3 Refills, Maintenance, 10/19/21 11:02:00 EST, Capsule, [facility]/pharmacy #7111, Partial fill upon patient request if the prescription is for a scheduleII opioid drug., 155, cm, 10/05/21 13:33:00 EST, He... Start Date: 10/19/21 Status: Ordered levothyroxine 0.05 mg oral tablet 1 tablet, By Mouth, Daily, # 90 tablet, 1 Refills, Maintenance, 09/06/22 15:47:00 EST, [facility], 155, cm, 06/12/22 14:03:00 EDT, Height, 52.25, kg, 04/27/22 14:46:00 EDT, Dry Weight Start Date: 09/06/22 Status: Ordered LORazepam 0.5 mg oral tablet 1 tablet = 0.5 mg, By Mouth, Daily, PRN for anxiety, # 24 tablet, 1 Refills, Maintenance, 10/18/22 10:48:00 EST, Tablet, [facility]/pharmacy #7111, 155, cm, 10/16/22 12:48:00 EST, Height, 52.25, kg, 04/27/22 14:46:00 EDT, Dry Weight Start Date: 10/18/22 Status: Ordered losartan 100 mg oral tablet 1 tablet, By Mouth, Daily, # 90 tablet, 0 Refills, Maintenance, 08/15/22 10:52:00 EST, [facility], 155, cm, 06/12/22 14:03:00 EDT, Height, 52.25, [...] capsule, 1 Refills, Maintenance, 05/18/22 12:36:00 EDT, [facility], Rx resent to [facility] as pt requested, 155, cm, 04/27/22 14:46:00 EDT, Height, 52.25, kg, 04/27/22 14:46:00 EDT, Dry Weight Start Date: 05/18/22 Status: Ordered tiZANidine 2 mg oral capsule 1 capsule = 2 mg, By Mouth, Every 8 hours, # 42 capsule, 0 Refills, Maintenance, 03/10/22 13:48:00 EDT, [facility]/pharmacy #7111, Partial fill upon patient request if the prescription is for a schedule II opioid drug., 155, cm, 03/10/22 13:27:00 EDT, Height Start Date: 03/10/22 Stop Date: 03/24/22 Status: Ordered valACYclovir 500 mg oral tablet 1, tablet, By Mouth, Daily, # 30 tablet, Refills 11, Route to Pharmacy Electronically, [facility], 155, cm, 10/05/21 13:33:00 EST, Height Start [...] CT measuring 4.1 cm. 2CT scan 2016 19323; repeat 2028 4colo 2009 nl, repeat 2019 [...] [place] Position: [facility] Primary Care Physician Member Role: PCP Address: Address: [address] [place] [id number]- Name: Sridhar De Leon RN Position: [facility] RN Member Role: Primary Care Nurse Care Team Related Persons Name: MU CONTRERAS Address: [place] [address] Name: SHANLEL COBIAN Address: [address] [address]
--- OUTSIDE RECORDS SUMMARY | 2024-07-03 12:15 | XMS_ITS | Continuity of Care Document ---
Author Organization [facility] Eduardo Dawson Durga lt Address [address] [place] [address]- Care Team Providers Care Vp Research Name Role Phone Miko Marshall MD Primary Care Physician [phone] [facility]17[facility]23 - 02/16/23 [facility] Adult [address] [place] [address]- Allergies, Adverse Reactions, Alerts Substance Reaction Severity [...] 4Admin Note: VIS GIVEN 5Admin Note: [facility] info given to patient 6Admin Note: GIANCARLO [...] 1 Refills, Maintenance,05/25/22 15:32:00 EDT, [facility], 75, INHALE 2 PUFFS 4 TIMES A DAY WHEN NEEDED FOR WHEEZING, 155, cm, 04/27/22 14:46:00 EDT, Height, 52.25, kg, 0... Start Date: 05/25/22 Status: Ordered amLODIPine 10 mg oral tablet 10 mg, 1, tablet, By Mouth, Daily, # 90 tablet, Refills 3, Tot. Refills 3, Maintenance, 11/22/22 16:38:00 EST, Route to Pharmacy Electronically, [facility]/pharmacy #7111, Partial fill upon patient request if the prescription is for a schedule II opioid drug... Start Date: 11/22/22 Status: Ordered atorvastatin 10 mg oral tablet 0.5 tablet, By Mouth, Daily, # 45 tablet, 3 Refills, 04/10/22 13:41:00 EDT, [facility]/pharmacy #7111, 155, cm, 04/10/22 13:29:00 EDT, Height Start Date: 04/10/22 Status: Ordered budesonide-formoterol 160 mcg-4.5 mcg/inh inhalation aerosol with adapter 2, puffs, Inhalation, 2 times a day, # 30.6 each, Refills 1, Tot. Refills 1, 07/17/22 13:30:00 EDT,Route to Pharmacy Electronically, [id number], [facility]/pharmacy #7111, 155, cm, 06/12/22 14:03:00 EDT, Height, [...] Refills, Maintenance, 12/28/22 7:50:00 EDT, [facility], 155, cm, 10/16/22 12:48:00 EST, Height, 52.25, kg, 04/27/22 14:46:00 EDT, Dry Weight Start Date: 12/28/22 Status: Ordered levothyroxine 0.05 mg oral tablet 1 tablet, By Mouth, Daily, # 90 tablet, 1 Refills, Maintenance, 09/06/22 15:47:00 EST, [facility], 155, cm, 06/12/22 14:03:00 EDT, Height, 52.25, kg, 04/27/22 14:46:00 EDT, Dry Weight Start Date: 09/06/22 Status: Ordered LORazepam 0.5 mg oral tablet 1 tablet = 0.5 mg, By Mouth, Daily, PRN for anxiety, # 24 tablet, 1 Refills, Maintenance, 10/18/22 10:48:00 EST, Tablet, [facility]/pharmacy #7111, 155, cm, 10/16/22 12:48:00 EST, Height, [...] 12/22/22 9:50:00 EDT, Route to Pharmacy Electronically, [facility], 155, cm, 10/16/22 12:48:00 EST, Height, 52.25, [...] CT measuring 4.1 cm. 2CT scan 2016 [id number]; repeat 2028 4colo 2008 nl, repeat 2018 [...] Care Member Role: PCP Address: Address: [address] [place] [address]- [place] Name: Zachary Biswas MD [facility] Renal MD Member Role: Lifetime Consulting Physician Address: Address: [address] [facility] [place] [place] [address]- Name: Sridhar De Leon RN Position: [facility] RN Member Role: Primary Care Nurse Care Team Related Persons Name: MU CONTRERAS Address: [place] [address] Name: SHANELL COBIAN Address: home [address] [place] [id number]
--- OUTSIDE RECORDS SUMMARY | 2024-07-03 12:15 | XMS_ITS | Continuity of Care Document ---
Author Organization [facility] Address [address] [place] [address]- Care Team Providers Care Four Slide Operator Name Role Phone Miko Marshall MD Primary Care Physician [phone] [facility] 07[facility] - 08/13/22 [facility] [address] [place], [place] [address] Attending Physician: AdmPaco [facility] Admitting Physician: AdmtrPaco Referring Physician: Admtr, Max8 Allergies, Adverse Reactions, Alerts Substance Reaction Severity [...] 5Admin Note: [facility] info given to patient 6Admin Note: GIANCARLO [...] 1 Refills, Maintenance,05/25/22 15:32:00 EDT, [facility], 75, INHALE 2 PUFFS 4 TIMES A DAY WHEN NEEDED FOR WHEEZING, 155, cm, 04/27/22 14:46:00 EDT, Height, 52.25, kg, 0... Start Date: 05/25/22 Status: Ordered amLODIPine 10 mg oral tablet 10 mg, 1, tablet, By Mouth, Daily, # 90 tablet, Refills 3, Tot. Refills 3, Maintenance, 09/02/21 9:38:00 EST, Route to Pharmacy Electronically, [facility]/pharmacy #7111, Partial fill upon patient [...] 1, 07/17/22 13:30:00 EDT,Route to Pharmacy Electronically, [id number], [facility]/pharmacy #7111, 155, cm, 06/12/22 14:03:00 [...] [facility]/pharmacy #7111, Partial fill upon patientrequest if the prescription is for a schedule II op... Start Date: 09/02/21 Status: Ordered hydroCHLOROthiazide 12.5 mg oral capsule 1 capsule = 12.5 mg, By Mouth, Daily, # 90 capsule, 3 Refills, Maintenance, 10/19/21 11:02:00 EST, Capsule, [facility]/pharmacy #7111, Partial fill upon patient request if the prescription is for a scheduleII opioid drug., 155, cm, 10/05/21 13:33:00 EST, He... Start Date: 10/19/21 Status: Ordered levothyroxine 0.05 mg oral tablet See Instructions, TAKE 1 TABLET BY MOUTH EVERY DAY, # 90 tablet, 3 Refills, [facility] STORE 58607, 155, cm, 04/10/22 13:29:00 EDT, Height Start Date: 04/10/22 Status: Ordered LORazepam 0.5 mg oral tablet 1 tablet = 0.5 mg, By Mouth, Daily, PRN for anxiety, # 24 tablet, 1 Refills, Maintenance, 09/02/21 9:33:00 EST, Tablet, [facility]/pharmacy #7111, 155, cm, 09/02/21 8:06:00 EST, Height Start Date: 09/02/21 Status: Ordered losartan 100 mg oral tablet 1 tablet, By Mouth, Daily, # 90 tablet, 1 Refills, [facility] STORE 72367, 155, cm, 11/14/21 13:39:00 EST,Height Start Date: [...] Maintenance, 05/18/22 12:36:00 EDT, [facility] Rx resent to [facility] as pt requested, 155, cm, 04/27/22 14:46:00 EDT, Height, 52.25, kg, 04/27/22 14:46:00 EDT, Dry Weight Start Date: 05/18/22 Status: Ordered tiZANidine 2 mg oral capsule 1 capsule = 2 mg, By Mouth, Every 8 hours, # 42 capsule, 0 Refills, Maintenance, 03/10/22 13:48:00 EDT, [facility]/pharmacy #7111, Partial fill upon patient request if the prescription is for a schedule II opioid drug., 155, cm, 03/10/22 13:27:00 EDT, Height Start Date: 03/10/22 Stop Date: 03/24/22 Status: Ordered valACYclovir 500 mg oral tablet 1, tablet, By Mouth, Daily, # 30 tablet, Refills 11, Route to Pharmacy Electronically, [facility], 155, cm, 10/05/21 13:33:00 EST, Height Start [...] CT measuring 4.1 [address]. 2CT scan 2015 [id number]; repeat 2028 4colo 2009 nl, repeat 2019 [...] Personnel Name: Maria G Mendez RN Position: [facility] RN Member Role: Primary Care Nurse Name: Barby Frias Position: [facility] Outreach Member Role: Lifetime Consulting Physician Name: Miko Marshall MD Position: [facility] Primary Care Physician Member Role: PCP Address: Address: [address] [place] [address]- Name: Sridhar De Leon RN Position: [facility] RN Member Role: Primary Care Nurse Care Team Related Persons Name: MU CONTRERAS Address: [place] [address] Name: SHANELL COBIAN Address: [address] [address]
--- OUTSIDE RECORDS SUMMARY | 2024-07-03 12:15 | XMS_ITS | Continuity of Care Document ---
Author Organization [facility] Eduardo Dawsno Durga lt Address [address] [place] [address]- Care Team Providers Care Broadcast Director Operations Name Role Phone Joanna VO, Miko Guillen Primary Care Physician [facility] 06[facility]21 - 07/02/21 [facility] Adult [address] [place] [address]- Allergies, Adverse Reactions, Alerts Substance Reaction Severity [...] (Td) 11 01/17/04 Given 1Location History: [facility] 2Result Comment: [06/23/2016] HIGH DOSE 3Admin Note: FLUARIX 4Admin Note: VIS GIVEN 5Admin Note: [facility] info given to patient 6Admin Note: GIANCARLO [...] 14:11:00 EDT, Route to Pharmacy Electronically, [facility]/pharmacy #7111, Partial fill upon patient request if the prescription is for a schedul... Start Date: 04/15/21 Status: Ordered atorvastatin 10 mg oral tablet 0.5 tablet, By Mouth, Daily, # 45 tablet, 1 Refills, [facility], 155, cm, 05/16/21 12:39:00 EDT, Height Start Date: 06/07/21 Status: Ordered budesonide-formoterol 160 mcg-4.5 mcg/inh inhalation aerosol with adapter 2, puffs, Inhalation, 2 times a day, # 30.6 each, Refills 1, Route to Pharmacy Electronically, [id number], [facility] STORE 81461, 155, cm, 05/16/21 12:39:00 EDT, Height Start [...] 11:04:00 EDT, Route to Pharmacy Electronically, [facility]/pharmacy #7111, Partial fill upon patientrequest if the prescription is for a schedule II op... Start Date: 05/20/21 Status: Ordered levothyroxine 0.05 mg oral tablet 1 tablet, By Mouth, Daily, # 90 tablet, 1 Refills, Maintenance, 03/11/21 15:34:00 EDT, [facility], 158, cm, 02/01/21 9:13:00 EDT, Height Start Date: 03/11/21 Status: Ordered LORazepam 0.5 mg oral tablet 1 tablet = 0.5 mg, By Mouth, Daily, PRN for anxiety, # 24 tablet, 1 Refills, Maintenance, 08/09/20 10:16:00 EST, Tablet, [facility]/pharmacy #7111, 158, cm, 08/09/20 9:40:00 EST, Height Start Date: 08/09/20 Status: Ordered losartan 100 mg oral tablet 1 tablet, By Mouth, Daily, # 90 tablet, 1 Refills, Maintenance, 03/19/21 21:39:00 EDT, [facility], 158, cm, 03/16/21 9:06:00 EDT, Height Start [...] 7:30:00 EST, Aerosol, Route to Pharmacy Electronically, [id number], [facility]/pharmacy #7111, 158, cm, 09/30/20 1... [...] 10/19/2111:02:00 EST, Route to Pharmacy Electronically, [facility]/pharmacy #7111, 158, cm, 09/30/20 14:41:00 [...] CT measuring 4.1 cm. 2CT scan 2015 [id number]; repeat 2028 4colo 2008 nl, repeat 2018 [...]
--- OUTSIDE RECORDS SUMMARY | 2024-07-03 12:15 | XMS_ITS | Continuity of Care Document ---
Author Organization [facility] Eduardo Dawson Durga lt Address [address] [place] [address]- Care Team Providers Care Grader Tender Name Role Phone Joanna VO, Miko Guillen Primary Care Physician [phone] [facility] 08/30/20 - 09/29/20 [facility] Adult [address] [place] [address]- Allergies, Adverse Reactions, Alerts Substance Reaction Severity [...] FLUARIX 4Admin Note: VIS GIVEN 5Admin Note: [facility] info given to patient 6Admin Note: GIANCARLO 7Result Comment: OOP 8Admin Note: [facility] 9Admin Note: Information sheet given 10Admin Note: given in clinic 11Admin Note: historical data Medications acetaminophen/butalbital/caffeine 325 mg-50 mg-40 mg oral capsule 1 capsule, By Mouth, Every 4 hours, PRN as needed, not to exceed 6 capsules/day, # 12 capsule, 0 Refills, Maintenance, 01/21/20 11:38:00 EDT, Capsule, [facility]/pharmacy #7111, 1 capsule By Mouth Every 4 hours,PRN:as needed,Instr:not to exceed 6 capsules/da... Start Date: 01/21/20 Status: Ordered amLODIPine 2.5 mg oral tablet 2.5 mg, 1, tablet, By Mouth, Daily, # 30 tablet, Refills 5, Tot. Refills 5, Maintenance, 09/01/20 11:20:00 EST, Route to Pharmacy Electronically, [facility]/pharmacy #7111, Partial fill upon patient requestif the prescription is for a schedule II opioid tian... Start Date: 09/01/20 Status: Ordered atorvastatin 10 mg oral tablet 0.5, By Mouth, Daily, # 45 tablet, 1 Refills, Maintenance, 04/06/20 8:27:00 EDT, Tablet, [facility]/pharmacy #7111, 158, cm, 03/10/20 14:43:00 EDT, [...] 11:20:00 EST, Route to Pharmacy Electronically, [facility]/pharmacy #7111, Partial fill upon patientrequest if the prescription is for a schedule II op... Start Date: 09/01/20 Status: Ordered levothyroxine 0.05 mg oral tablet 1 tablet, By Mouth, Daily, # 90 tablet, 1 Refills, Maintenance, 09/07/20 9:19:00 EST, [facility]/pharmacy #7111, 158, cm, 09/01/20 9:29:00 EST, Height Start Date: 09/07/20 Status: Ordered LORazepam 0.5 mg oral tablet 1 tablet = 0.5 mg, By Mouth, Daily, PRN for anxiety, # 24 tablet, 1 Refills, Maintenance, 08/09/20 10:16:00 EST, Tablet, [facility]/pharmacy #7111, 158, cm, 08/09/20 9:40:00 EST, Height Start Date: 08/09/20 Status: Ordered losartan 100 mg oral tablet 1 tablet = 100 mg, By Mouth, Daily, # 30 tablet, 5 Refills, Maintenance, 09/01/20 11:21:00 EST, Tablet, [facility]/pharmacy #7111, Partial fill [...] 1 Refills, Maintenance, 03/26/20 14:17:00 EDT, [facility]/pharmacy #7111, 158, cm, 03/10/20 14:43:00 EDT, Height, 57.6, kg, 05/21/18 14:53:00 EDT, Dry Weight Start Date: 03/26/20 Stop Date: 05/25/20 Status: Ordered ProAir HFA 90 mcg/inh inhalation aerosol with adapter 2, puffs, Inhalation, 4 times a day, PRN, NEW RX PER AFAY, # 3 each, Refills 1, Tot. Refills 1, Maintenance, 07/30/19 14:51:47 EST, Aerosol, Route to Pharmacy Electronically, [id number], [facility]/pharmacy #7111 Start Date: 07/30/19 Status: Ordered [...] 12:01:00 EDT, Aerosol, Route to Pharmacy Electronically, [id number], [facility]/pharmacy #7111, 158, cm, 06/21/20 12:56:0... Start Date: 06/30/20 Status: Ordered Valtrex 500 mg oral tablet 500 mg, 1, tablet, By Mouth, Daily, # 30 tablet, Refills 11, Tot. Refills 11, Maintenance, 07/25/1811:27:07 EST, Route to Pharmacy Electronically, [id number], [facility]/pharmacy #7111 Start Date: 07/25/18 Status: Ordered [...] CT measuring 4.1 cm. 2CT scan 2016 [id number]; repeat 2028 4colo 2008 nl, repeat 2019 [...]
--- OUTSIDE RECORDS SUMMARY | 2024-07-03 12:15 | XMS_ITS | Continuity of Care Document ---
Author Organization [facility] Address [address] [place] [address]- Care Team Providers Care Core Inspector Name Role Phone Miko Marshall MD Primary Care Physician [facility] 08[facility]23 - 09/29/23 [facility] [address] [place] [address]- [place] Allergies, Adverse Reactions, Alerts Substance Reaction [...] (oldterm) 10 06/24/08 Give n 1Result Comment: [facility]: [id number] 2Location History: [facility] 3Result Comment: [06/23/2016] HIGH DOSE 4Admin Note: FLUARIX 5Admin Note: VIS GIVEN 6Admin Note: [facility] info given to patient 7Admin Note: [...] 25.5 each, 1 Refills, Maintenance,05/25/22 15:32:00 EDT, [facility] STORE 89743, 75, INHALE 2 PUFFS 4 TIMES A DAY WHEN NEEDED FOR WHEEZING, 155, cm, 04/27/22 14:46:00 EDT, Height, 52.25, kg, 0... Start Date: 05/25/22 Status: Ordered amLODIPine 10 mg oral tablet 10 mg, 1, tablet, By Mouth, Daily, # 90 tablet, Refills 3, Tot. Refills 3, Maintenance, 11/22/22 16:38:00 EST, Route to Pharmacy Electronically, [facility]/pharmacy #3102, Partial fill upon patient request if the [...] tablet, 6 Refills, Maintenance, 06/29/23 15:09:00 EDT, [facility]/pharmacy #7111, 155, cm, 06/29/23 14:50:00 EDT, Height, 52.25, kg, 04/27/22 14:46:00 EDT, Dry Weight Start Date: 06/29/23 Status: Ordered budesonide-formoterol 160 mcg-4.5 mcg/inh inhalation aerosol with adapter 2, puffs, Inhalation, 2 times a day, # 30.6 each, Refills 1, Maintenance, 08/29/23 5:44:00 EST, Route to Pharmacy Electronically, [id number], [facility], 155, cm, 08/27/23 8:53:00 EST, Height, 52.25, [...] 09/28/23 13:34:00 EST, Route to Pharmacy Electronically, [facility]/pharmacy #7111, Partial fill upon patient request if the prescription is for a schedule II o... Start Date: 09/28/23 Stop Date: 09/22/24 Status: Ordered fluticasone 50 mcg/inh nasal spray 1 sprays, Nares, Both, 2 times a day, # 16 Gm, 11 Refills, Maintenance, 06/29/23 15:10:00 EDT, Nasal [place], [facility]/pharmacy #7111, Partial fill upon patient request if the prescription is for a scheduleII opioid drug., 1 sprays Nares, Both 2 times a day... Start Date: 06/29/23 Status: Ordered hydroCHLOROthiazide 12.5 mg oral capsule 1 capsule, By Mouth, Daily, # 90 capsule, 3 Refills, Maintenance, 12/28/22 7:50:00 EDT, [facility], 155, cm, 10/16/22 12:48:00 EST, Height, 52.25, kg, 04/27/22 14:46:00 EDT, Dry Weight Start Date: 12/28/22 Status: Ordered levothyroxine 0.05 mg oral tablet 1 tablet, By Mouth, Daily, # 90 tablet, 0 Refills, Maintenance, 08/29/23 5:44:00 EST, [facility], 155, cm, 08/27/23 8:53:00 EST, Height, 52.25, kg, 04/27/22 14:46:00 EDT, Dry Weight Start Date: 08/29/23 Status: Ordered LORazepam 0.5 mg oral tablet 1 tablet = 0.5 mg, By Mouth, Daily, PRN for anxiety, # 24 tablet, 1 Refills, Maintenance, 10/18/22 10:48:00 EST, Tablet, [facility]/pharmacy #7111, 155, cm, 10/16/22 12:48:00 [...] capsule, 1 Refills, Maintenance, 09/11/23 10:37:00 EST, [facility]/pharmacy #7111, 155, cm, 08/27/23 8:53:00 EST, Height, 52.25, kg, 04/27/22 14:46:00 EDT, Dry Weight Start Date: 09/11/23 Status: Ordered valACYclovir 500 mg oral tablet 1, tablet, By Mouth, Daily, # 30 tablet, Refills 11, Maintenance, 12/22/22 9:50:00 EDT, Route to Pharmacy Electronically, [facility], 155, cm, 10/16/22 12:48:00 EST, Height, 52.25, [...] cm. 2CT scan 2015; repeat 2028 4colo 2009 nl, repeat 2019 [...] Primary Care Nurse Name: Barby Frias Position: [facility] Outreach Member Role: Lifetime Consulting Physician Name: Miko Marshall MD Position: [facility] Physician - Primary Care Member Role: PCP Address: Address: [address] [place] [address]- [place] Name: Zachary Biswas MD Position: [facility] Renal MD Member Role: Lifetime Consulting Physician Address: Address: [address] [place], [place] [address] [place] [address]- [place] Name: Sridhar De Leon RN Position: [facility] RN Member Role: Primary Care Nurse Care Team Related Persons Name: MU CONTRERAS Address: [place] [address] Name: SHANELL COBIAN Address: [address] [address]
--- OUTSIDE RECORDS SUMMARY | 2024-07-03 12:15 | XMS_ITS | Continuity of Care Document ---
Author Organization [facility] Address [address] [facility] [address] [place] [address]- Care Team Providers Care Polymerization Helper Name Role Phone Joanna VO, Miko Guillen Primary Care Physician [phone] [facility]): 06[facility]20 - 07/04/20 [facility] [address] [facility] [address] [place] [address]- [facility] Attending Physician: AdmPaco [facility] Admitting Physician: AdmtrPaco [...] 4Admin Note: VIS GIVEN 5Admin Note: [facility] info given to patient 6Admin Note: GIANCARLO 7Result Comment: OOP 8Admin Note: [facility] 9Admin Note: Information sheet given 10Admin Note: given in clinic 11Admin Note: historical data Medications acetaminophen/butalbital/caffeine 325 mg-50 mg-40 mg oral capsule 1 capsule, By Mouth, Every 4 hours, PRN as needed, not to exceed 6 capsules/day, # 12 capsule, 0 Refills, Maintenance, 01/21/20 11:38:00 EDT, Capsule, [facility]/pharmacy #7111, 1 capsule By Mouth Every 4 hours,PRN:as needed,Instr:not to exceed 6 capsules/da... Start Date: 01/21/20 Status: Ordered amLODIPine 5 mg oral tablet 5 mg, 1, tablet, By Mouth, Daily, # 90 tablet, Refills 3, Tot. Refills 3, Maintenance, 06/21/20 13:28:00 EDT, Route to Pharmacy Electronically, [facility]/pharmacy #7111, 158, cm, 06/21/20 12:56:00 EDT, Height Start Date: 06/21/20 Status: Ordered atorvastatin 10 mg oral tablet 0.5, By Mouth, Daily, # 45 tablet, 1 Refills, Maintenance, 04/06/20 8:27:00 EDT, Tablet, [facility]/pharmacy #7111, 158, cm, 03/10/20 14:43:00 EDT, Height, [...] 06/21/20 13:29:00 EDT, [facility], cm, 06/21/20 12:56:00 EDT, Height Start Date: 06/21/20 Status: Ordered levothyroxine 0.05 mg oral tablet 1 tablet, By Mouth, Daily, # 90 tablet, 1 Refills, Maintenance, 03/13/20 20:13:00 EDT, [facility]/pharmacy#7111, 158, cm, 03/10/20 14:43:00 EDT, Height, 57.6, kg, 05/21/18 14:53:00 EDT, Dry Weight Start Date: 03/13/20 Status: Ordered LORazepam 0.5 mg oral tablet 1 tablet = 0.5 mg, By Mouth, Daily, PRN for anxiety, , # 24 tablet, 1 Refills, Maintenance, 09/12/19 13:53:00 EST, Tablet, [facility], 158, cm, 05/22/19 10:37:00 EDT, Height, [...] Refills, Maintenance, 03/26/20 14:17:00 EDT, [facility]/pharmacy #7111, 158, cm, 03/10/20 14:43:00 EDT, Height, 57.6, kg, 05/21/18 14:53:00 EDT, Dry Weight Start Date: 03/26/20 Stop Date: 05/25/20 Status: Ordered ProAir HFA 90 mcg/inh inhalation aerosol with adapter 2, puffs, Inhalation, 4 times a day, PRN, NEW RX PER AFAY, # 3 each, Refills 1, Tot. Refills 1, Maintenance, 07/30/19 14:51:47 EST, Aerosol, Route to Pharmacy Electronically, [id number], [facility]/pharmacy #7111 Start Date: 07/30/19 Status: [...] 12:01:00 EDT, Aerosol, Route to Pharmacy Electronically, [id number], [facility], 158, cm, 06/21/20 12:56:0... Start Date: 06/30/20 Status: Ordered Valtrex 500 mg oral tablet 500 mg, 1, tablet, By Mouth, Daily, # 30 tablet, Refills 11, Tot. Refills 11, Maintenance, 07/25/1811:27:07 EST, Route to Pharmacy Electronically, [id number], [facility]/pharmacy #7111 Start Date: 07/25/18 Status: [...]
--- OUTSIDE RECORDS SUMMARY | 2024-07-03 12:15 | XMS_ITS | Continuity of Care Document ---
Author Organization [facility] Address [address] [place] [address]- Care Team Providers Care Geomagnetist Name Role Phone Miko Marshall MD Primary Care Physician Encounter [facility] Date(s): 01/26/23 - 02/25/23 [facility] [address] [place], [place] [address] Attending Physician: Paco Anderson Admitting Physician: Admtr, [...] FLUARIX 4Admin Note: VIS GIVEN 5Admin Note: [facility] info given to patient 6Admin Note: GIANCARLO [...] 1 Refills, Maintenance,05/25/22 15:32:00 EDT, [facility], 75, INHALE 2 PUFFS 4 TIMES A DAY WHEN NEEDED FOR WHEEZING, 155, cm, 04/27/22 14:46:00 EDT, Height, 52.25, kg, 0... Start Date: 05/25/22 Status: Ordered amLODIPine 10 mg oral tablet 10 mg, 1, tablet, By Mouth, Daily, # 90 tablet, Refills 3, Tot. Refills 3, Maintenance, 11/22/22 16:38:00 EST, Route to Pharmacy Electronically, [facility] [...] 02/23/23 8:46:00 EDT, Route to Pharmacy Electronically, [id number], [facility], 155, cm, 02/21/23 10:28:00 EDT, Height, 52.25, [...] Refills, Maintenance, 12/28/22 7:50:00 EDT, [facility], 155, cm, 10/16/22 12:48:00 EST, Height, 52.25, kg, 04/27/22 14:46:00 EDT, Dry Weight Start Date: 12/28/22 Status: Ordered levothyroxine 0.05 mg oral tablet 1 tablet, By Mouth, Daily, # 90 tablet, 1 Refills, Maintenance, 09/06/22 15:47:00 EST, [facility], 155, cm, 06/12/22 14:03:00 EDT, Height, 52.25, kg, 04/27/22 14:46:00 EDT, Dry Weight Start Date: 09/06/22 Status: Ordered LORazepam 0.5 mg oral tablet 1 tablet = 0.5 mg, By Mouth, Daily, PRN for anxiety, # 24 tablet, 1 Refills, Maintenance, 10/18/22 10:48:00 EST, Tablet, [facility]/pharmacy #7111, 155, cm, 10/16/22 12:48:00 EST, Height, 52.25, kg, 04/27/22 14:46:00 EDT, Dry Weight Start Date: 10/18/22 Status: Ordered losartan 100 mg oral tablet 1 tablet, By Mouth, Daily, # 90 tablet, 3 Refills, Maintenance, 11/22/22 16:38:00 EST, [facility]/pharmacy#7111, 155, cm, 10/16/22 12:48:00 EST, [...] 12/22/22 9:50:00 EDT, Route to Pharmacy Electronically, [facility], 155, cm, 10/16/22 12:48:00 EST, Height, 52.25, [...] CT measuring 4.1 cm. 2CT scan 2016 [id number]; repeat 2028 4colo 2008 nl, repeat 2019 [...] Personnel Name: Maria G Mendez RN Position: [facility] RN Member Role: Primary Care Nurse Name: Barby Frias Position: [facility] Outreach Member Role: Lifetime Consulting Physician Name: Miko Marshall MD Position: [facility] Physician - Primary Care Member Role: PCP Address: Address: [address] [place] [address]- [place] Name: Zachary Biswas MD Position: [facility] Renal MD Member Role: Lifetime Consulting Physician Address: Address: [address] [place] [address] [address] [facility] [place] [address]- [place] Name: Moises BAH, Sridhar Position: [facility] RN Member Role: Primary Care Nurse Care Team Related Persons Name: MU CONTRERAS Address: [place] [address] Name: SHANELL COBIAN Address: home [address] [place] [address]
--- OUTSIDE RECORDS SUMMARY | 2024-07-03 12:15 | XMS_ITS | Continuity of Care Document ---
Author Organization [facility] Address [address] [facility] [address] [place] [address]- Care Team Providers Care Pharmaceutical Salesperson Name Role Phone Joanna VO, Miko Guillen Primary Care Physician Encounter [facility] Date(s): 07/06/20 - 10/16/20 [facility] [address] [facility] [address] [place], [place] [address] Attending Physician: Nuvia Dick MD Admitting Physician: Nuvia Dick MD Allergies, [...] Refills, Maintenance, 01/21/20 11:38:00 EDT, Capsule, [facility]/pharmacy #7111, 1 capsule By Mouth Every 4 hours,PRN:as needed,Instr:not to exceed 6 capsules/da... Start Date: 01/21/20 Status: Ordered amLODIPine 2.5 mg oral tablet 2.5 mg, 1, tablet, By Mouth, Daily, # 30 tablet, Refills 5, Tot. Refills 5, Maintenance, 09/01/20 11:20:00 EST, Route to Pharmacy Electronically, [facility]/pharmacy #7111, Partial fill upon patient requestif the prescription is for a schedule II opioid tian... Start Date: 09/01/20 Status: Ordered atorvastatin 10 mg oral tablet 0.5, By Mouth, Daily, # 45 tablet, 1 Refills, Maintenance, 10/16/20 11:28:00 EST, Tablet, [facility]/pharmacy #7111, 158, cm, 09/30/20 14:41:00 EST, Height Start Date: 10/16/20 Status: Ordered Centrum Silver By Mouth, Daily, 0 Refills, Maintenance, 01/11/17 14:23:47 Start Date: 01/11/17 Status: Ordered cloNIDine 0.1 mg oral tablet 0.1 mg, 1, tablet, By Mouth, 2 times a day, # 60 tablet, Refills 5, Tot. Refills 5, Maintenance, 09/01/20 11:20:00 EST, Route to Pharmacy Electronically, [facility]/pharmacy #7111, Partial fill upon patientrequest if the prescription is for a schedule II op... Start Date: 09/01/20 Status: Ordered levothyroxine 0.05 mg oral tablet 1 tablet, By Mouth, Daily, # 90 tablet, 1 Refills, Maintenance, 09/07/20 9:19:00 EST, [facility]/pharmacy #7111, 158, cm, 09/01/20 9:29:00 EST, Height Start Date: 09/07/20 Status: Ordered LORazepam 0.5 mg oral tablet 1 tablet = 0.5 mg, By Mouth, Daily, PRN for anxiety, # 24 tablet, 1 Refills, Maintenance, 08/09/20 10:16:00 EST, Tablet, [facility]/pharmacy #7111, 158, cm, 08/09/20 9:40:00 EST, Height Start Date: 08/09/20 Status: Ordered losartan 100 mg oral tablet 1 tablet = 100 mg, By Mouth, Daily, # 30 tablet, 5 Refills, Maintenance, 09/01/20 11:21:00 EST, Tablet, [facility]/pharmacy [...] 1 Refills, Maintenance, 03/26/20 14:17:00 EDT, [facility]/pharmacy #7111, 158, cm, 03/10/20 14:43:00 EDT, Height, 57.6, kg, 05/21/18 14:53:00 EDT, Dry Weight Start Date: 03/26/20 Stop Date: 05/25/20 Status: Ordered ProAir HFA 90 mcg/inh inhalation aerosol with adapter 2, puffs, Inhalation, 4 times a day, PRN, NEW RX PER AFAY, # 3 each, Refills 1, Tot. Refills 1, Maintenance, 07/30/19 14:51:47 EST, Aerosol, Route to Pharmacy Electronically, [id number], [facility]/pharmacy #7111 Start Date: 07/30/19 Status: Ordered [...] 12:01:00 EDT, Aerosol, Route to Pharmacy Electronically, [id number], [facility]/pharmacy #7111, 158, cm, 06/21/20 12:56:0... Start Date: 06/30/20 Status: Ordered Valtrex 500 mg oral tablet 500 mg, 1, tablet, By Mouth, Daily, # 30 tablet, Refills 11, Tot. Refills 11, Maintenance, 07/25/1811:27:07 EST, Route to Pharmacy Electronically, [id number], [facility]/pharmacy #7111 Start Date: 07/25/18 Status: Ordered Problem [...] CT measuring 4.1 cm. 2CT scan 2016 23413; repeat 2028 4colo 2008 nl, repeat 2019 [...]
--- OUTSIDE RECORDS SUMMARY | 2024-07-03 12:15 | XMS_ITS | Continuity of Care Document ---
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 Mosaic Worker Name Role Phone Joanna VO, Miko Guillen Primary Care Physician [facility]counter [facility] Date(s): 08/16/21 - 12/14/21 [facility] Adult [address] [place] [address]- Attending Physician: Brenda Jackson NP Referring Physician: [...] 1Admin Note: historical data 2Location History: [facility] 3Result Comment: [06/23/2016] HIGH DOSE 4Admin Note: FLUARIX 5Admin Note: VIS GIVEN 6Admin Note: [facility] info given to patient 7Admin Note: [...] 9:38:00 EST, Route to Pharmacy Electronically, [facility]/pharmacy #3186, Partial fill upon patient request if the prescription is for a schedule II opioid drug.... Start Date: 09/02/21 Status: Ordered atorvastatin 10 mg oral tablet 0.5 tablet, By Mouth, Daily, # 45 tablet, 1 Refills, [facility]ORE 9[facility], 155, cm, 05/16/21 12:39:00 EDT, Height Start Date: 06/07/21 Status: Ordered budesonide-formoterol 160 mcg-4.5 mcg/inh inhalation aerosol with adapter 2, puffs, Inhalation, 2 times a day, # 30.6 each, Refills 1, Route to Pharmacy Electronically, [id number], [facility], 155, cm, 05/16/21 12:39:00 EDT, Height Start Date: 06/25/21 Status: Ordered Centrum Silver By Mouth, Daily, 0 Refills, Maintenance, 01/11/17 14:23:47 Start Date: 01/11/17 Status: Ordered cloNIDine 0.1 mg oral tablet 0.1 mg, 1, tablet, By Mouth, 2 times a day, # 180 tablet, Refills 3, Tot. Refills 3, Maintenance, 09/02/21 9:38:00 EST, [facility] Partial fill upon patientrequest if the prescription is for a schedule II op... Start Date: 09/02/21 Status: Ordered hydroCHLOROthiazide 12.5 mg oral capsule 1 capsule = 12.5 mg, By Mouth, Daily, # 90 capsule, 3 Refills, Maintenance, 10/19/21 11:02:00 EST, Capsule, [facility]/pharmacy #7111, Partial fill upon patient request if the prescription is for a scheduleII opioid drug., 155, cm, 10/05/21 13:33:00 EST, He... Start Date: 10/19/21 Status: Ordered levothyroxine 0.05 mg oral tablet 1 tablet, By Mouth, Daily, # 90 tablet, 1 Refills, [facility] 405[facility], 155, cm, 08/05/21 11:25:00 EST,Height Start Date: 09/01/21 Status: Ordered LORazepam 0.5 mg oral tablet 1 tablet = 0.5 mg, By Mouth, Daily, PRN for anxiety, # 24 tablet, 1 Refills, Maintenance, 09/02/21 9:33:00 EST, Tablet, [facility]/pharmacy #7111, 155, cm, 09/02/21 8:06:00 EST, Height Start Date: 09/02/21 Status: Ordered losartan 100 mg oral tablet 1 tablet, By Mouth, Daily, # 90 tablet, 0 Refills, [facility], 155, cm, 09/02/21 8:06:00 EST, Height Start [...] 7:30:00 EST, Aerosol, Route to Pharmacy Electronically, [id number], [facility]/pharmacy #7111, 158, cm, 09/30/20 1... Start Date: 11/22/20 Stop Date: 01/21/21 Status: Ordered Spiriva HandiHaler 18 mcg inhalation capsule 1 capsule, Inhalation, Daily, # 90 capsule, 1 Refills, Maintenance, 10/07/21 11:00:00 EST, [facility], 155, cm, 10/05/21 13:33:00 EST, Height Start Date: 10/07/21 Status: Ordered valACYclovir 500 mg oral tablet 1, tablet, By Mouth, Daily, # 30 tablet, Refills 11, Route to Pharmacy Electronically, [facility]ORE 29718, 155, cm, 10/05/21 13:33:00 EST, Height Start [...] CT measuring 4.1 cm. 2CT scan 2016 13492; repeat 2028 4colo 2008 nl, repeat 2019 [...]
--- OUTSIDE RECORDS SUMMARY | 2024-07-03 12:15 | XMS_ITS | Continuity of Care Document ---
Author Organization [facility] Samir Durga lt Address [address] [place] [address]- Care Team Providers Care Case Assistant Name Role Phone Joanna VO, Miko Guillen Primary Care Physician [facility]counter [facility] Date(s): 03/10/22 - 03/17/22 [facility] [address] [place] [address]- Attending Physician: Kacie Anderson Allergies, Adverse Reactions, Alerts Substance Reaction [...] n 1Admin Note: historical data 2Location History: [facility] 3Result Comment: [06/23/2016] HIGH DOSE 4Admin Note: FLUARIX 5Admin Note: VIS GIVEN 6Admin Note: [facility] info given to patient 7Admin Note: GIANCARLO [...] 09/02/21 9:38:00 EST, Route to Pharmacy Electronically, [facility]/pharmacy #1716, Partial fill upon patient request if the prescription is for a schedule II opioid drug.... Start Date: 09/02/21 Status: Ordered atorvastatin 10 mg oral tablet 0.5 tablet, By Mouth, Daily, # 45 tablet, 1 Refills, [facility] 8[facility]83, 155, cm, 11/14/21 13:39:00 EST, Height Start Date: 12/16/21 Status: Ordered budesonide-formoterol 160 mcg-4.5 mcg/inh inhalation aerosol with adapter 2, puffs, Inhalation, 2 times a day, # 30.6 each, Refills 1, Route to Pharmacy Electronically, [id number], [facility] ST[facility] 38927, 155, cm, 05/16/21 12:39:00 EDT, Height Start Date: 06/25/21 Status: Ordered Centrum Silver By Mouth, Daily, 0 Refills, Maintenance, 01/11/17 14:23:47 Start Date: 01/11/17 Status: Ordered cloNIDine 0.1 mg oral tablet 0.1 mg, 1, tablet, By Mouth, 2 times a day, # 180 tablet, Refills 3, Tot. Refills 3, Maintenance, 09/02/21 9:38:00 EST, Route to Pharmacy Electronically, [facility]/pharmacy #7111, Partial fill upon patientrequest if the prescription is for a schedule II op... Start Date: 09/02/21 Status: Ordered hydroCHLOROthiazide 12.5 mg oral capsule 1 capsule = 12.5 mg, By Mouth, Daily, # 90 capsule, 3 Refills, Maintenance, 10/19/21 11:02:00 EST, Capsule, [facility]/pharmacy #7111, Partial fill upon patient request if the prescription is for a scheduleII opioid drug., 155, cm, 10/05/21 13:33:00 EST, He... Start Date: 10/19/21 Status: Ordered levothyroxine 0.05 mg oral tablet 1 tablet, By Mouth, Daily, # 90 tablet, 1 Refills, 03/16/22 8:12:00 EDT, [facility]/pharmacy #7111, 155, cm, 03/10/22 13:27:00 EDT, Height Start Date: 03/16/22 Status: Ordered LORazepam 0.5 mg oral tablet 1 tablet = 0.5 mg, By Mouth, Daily, PRN for anxiety, # 24 tablet, 1 Refills, Maintenance, 09/02/21 9:33:00 EST, Tablet, [facility]/pharmacy #7111, 155, cm, 09/02/21 8:06:00 EST, Height Start Date: 09/02/21 Status: Ordered losartan 100 mg oral tablet 1 tablet, By Mouth, Daily, # 90 tablet, 1 Refills, [facility] STORE 00016, 155, cm, 11/14/21 13:39:00 EST,Height Start Date: [...] 7:30:00 EST, Aerosol, Route to Pharmacy Electronically, [id number], [facility]/pharmacy #7111, 158, cm, 09/30/20 1... Start [...] capsule, 0 Refills, Maintenance, 03/10/22 13:48:00 EDT, [facility]/pharmacy #7111, Partial fill upon patient request if the prescription is for a schedule II opioid drug., 155, cm, 03/10/22 13:27:00 EDT, Height Start Date: 03/10/22 Stop Date: 03/24/22 Status: Ordered valACYclovir 500 mg oral tablet 1, tablet, By Mouth, Daily, # 30 tablet, Refills 11, Route to Pharmacy Electronically, [facility] 48048, 155, cm, 10/05/21 13:33:00 EST, Height Start [...] CT measuring 4.[address]. 2CT scan 2016 73689; repeat 2028 4colo 2009 nl, repeat 2019 5colo 2019 6egd 2012 no barretts 7colo 2019 8Status post laparotomy with lysis of adhesions and repair of incarcerated ventral hernia. Surgery performed March 2018. 9Thyroid peroxidase antibody positive Vital Signs Most recent to oldest [Reference Range]: 1 Height 155 cm (03/10/22 1:27 PM) Weight 55.8 kg (03/10/22 1:27 PM) Oxygen Saturation [94-100 %] 95 % (03/10/22 1:27 PM) Pulse Rate [55-90 bpm] 62 bpm (03/10/22 1:27 PM) Body Mass Index [18.5-24.99] 23.23 (03/10/22 1:27 PM) Blood Pressure [90-138/55-84 mm Hg] 112/ 68mm Hg (03/10/22 1:27 PM) Temperature [96.8-100.4 DegF] 97.8 DegF (03/10/22 1:27 PM) Blood pressure sites Arm, right (03/10/22 1:27 PM) Temperature Route Oral (03/10/22 1:27 PM) Weight Obtained Via Standing scale (03/10/22 1:27 PM) Social History Social History Type Response Smoking Status Former smoker; Other : quit 15 years ago; entered on: 03/16/16 Sex Female
--- OUTSIDE RECORDS SUMMARY | 2024-07-03 12:15 | XMS_ITS | Continuity of Care Document ---
Author Organization [facility] Eduardo Dawson Durga lt Address [address] [place] [address]- Care Team Providers Care Assurance Assistant Name Role Phone Joanna VO, Miko Guillen Primary Care Physician [facility] Date[place]s): 06/12/22 - 06/19/22 [facility] Adult [address] [place] [address]- Encounter Diagnosis Elbow pain(Discharge Diagnosis) - 06/12/22 Attending Physician: Kacie Anderson Referring Physician: Miko Marshall MD Allergies, Adverse [...] 1 Refills, Maintenance,05/25/22 15:32:00 EDT, [facility], 75, INHALE 2 PUFFS 4 TIMES A DAY WHEN NEEDED FOR WHEEZING, 155, cm, 04/27/22 14:46:00 EDT, Height, 52.25, kg, 0... Start Date: 05/25/22 Status: Ordered amLODIPine 10 mg oral tablet 10 mg, 1, tablet, By Mouth, Daily, # 90 tablet, Refills 3, Tot. Refills 3, Maintenance, 09/02/21 9:38:00 EST, Route to Pharmacy Electronically, [facility]/pharmacy #7111, Partial fill upon patient request if [...] each, Refills 1, Route to Pharmacy Electronically, [id number], [facility], 155, cm, 05/16/21 12:39:00 EDT, Height Start Date: 06/25/21 Status: Ordered Centrum Silver By Mouth, Daily, 0 Refills, Maintenance, 01/11/17 14:23:47 Start Date: 01/11/17 Status: Ordered cloNIDine 0.1 mg oral tablet 0.1 mg, 1, tablet, By Mouth, 2 times a day, # 180 tablet, Refills 3, Tot. Refills 3, Maintenance, 09/02/21 9:38:00 EST, Route to Pharmacy Electronically, [facility]/pharmacy #7111, Partial fill upon patientrequest if the [...] # 90 tablet, 3 Refills, [facility], 155, cm, 04/10/22 13:29:00 EDT, Height Start Date: 04/10/22 Status: Ordered LORazepam 0.5 mg oral tablet 1 tablet = 0.5 mg, By Mouth, Daily, PRN for anxiety, # 24 tablet, 1 Refills, Maintenance, 09/02/21 9:33:00 EST, Tablet, [facility]/pharmacy #7111, 155, cm, 09/02/21 8:06:00 EST, Height Start Date: 09/02/21 Status: Ordered losartan 100 mg oral tablet 1 tablet, By Mouth, Daily, # 90 tablet, 1 Refills, [facility] 79[facility], 155, cm, 11/14/21 13:39:00 EST,Height Start Date: [...] capsule, 1 Refills, Maintenance, 05/18/22 12:36:00 EDT, [facility], Rx resent to [facility] as pt requested, 155, cm, 04/27/22 14:46:00 EDT, Height, 52.25, kg, 04/27/22 14:46:00 EDT, Dry Weight Start Date: 05/18/22 Status: Ordered tiZANidine 2 mg oral capsule 1 capsule = 2 mg, By Mouth, Every 8 hours, # 42 capsule, 0 Refills, Maintenance, 03/10/22 13:48:00 EDT, [facility]/pharmacy #7111, Partial fill upon patient request if the prescription is for a schedule II opioid drug., 155, cm, 03/10/22 13:27:00 EDT, Height Start Date: 03/10/22 Stop Date: 03/24/22 Status: Ordered valACYclovir 500 mg oral tablet 1, tablet, By Mouth, Daily, # 30 tablet, Refills 11, Route to Pharmacy Electronically, [facility], 155, cm, 10/05/21 13:33:00 EST, Height Start [...] CT measuring 4.1 [address]. 2CT scan 2016 60210; repeat 2028 4colo 2008 nl, repeat 2018 5Problem added by Discern Expert 6colo 2018 7egd 2012 no barretts 8colo 2018 9Status post laparotomy with lysis of adhesions and repair of incarcerated ventral hernia. Surgery performed March 2018. 10Thyroid peroxidase antibody positive Diagnosis Diagnosis Type Effective Dates Health Status [facility] Service Informant Elbow pain Discharge Diagnosis 06/12/22 Vital Signs Most recent to oldest [Reference Range]: 1 Height 155 cm (06/12/22 2:03 PM) Weight 53.8 kg (06/12/22 2:03 PM) Oxygen Saturation [94-100 %] 97 % (06/12/22 2:03 PM) Pulse Rate [55-90 bpm] 72 bpm (06/12/22 2:03 PM) Body Mass Index [18.5-24.99 kg/m2] 22.39 kg/m2 (06/12/22 2:03 PM) Blood Pressure [90-138/55-84 mm Hg] 124/ 72mm Hg (06/12/22 2:03 PM) Temperature [96.8-100.4 DegF] 98.7 DegF (06/12/22 2:03 PM) Blood pressure sites Arm, right (06/12/22 2:03 PM) Temperature Route Temporal (06/12/22 2:03 PM) Weight Obtained Via Standing scale (06/12/22 2:03 PM) Social History Social History Type Response Smoking Status Former smoker; Other : quit 15 years ago; entered on: 03/16/16 Sex Female Patient Care team information Personnel Name: Joanna VO, Miko Guillen Address: Address: [address] [place] [address]-
--- OUTSIDE RECORDS SUMMARY | 2024-07-03 12:16 | XMS_ITS | Continuity of Care Document ---
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.. Start Date: 05/25/22 Status: Ordered amLODIPine 10 mg oral tablet 10 mg, 1, tablet, By Mouth, Daily, # 90 tablet, Refills 3, Tot. Refills 3, Maintenance, 11/22/22 16:38:00 EST, Route to Pharmacy Electronically, [facility]/pharmacy #7111, Partial fill upon [...] 45 tablet, 3 Refills, 04/10/22 13:41:00 EDT, [facility]/pharmacy #7111, 155, cm, 04/10/22 13:29:00 EDT, Height Start Date: 04/10/22 Status: Ordered budesonide-formoterol 160 mcg-4.5 mcg/inh inhalation aerosol with adapter 2, puffs, Inhalation, 2 times a day, # 30.6 each, Refills 1, Maintenance, 02/23/23 8:46:00 EDT, Route to Pharmacy Electronically, [id number], [facility] ST[facility] 80878, 155, cm, 02/21/23 10:28:00 EDT, Height, 52.25, [...] Refills, Maintenance, 12/28/22 7:50:00 EDT, [facility], 155, cm, 10/16/22 12:48:00 EST, Height, 52.25, kg, 04/27/22 14:46:00 EDT, Dry Weight Start Date: 12/28/22 Status: Ordered levothyroxine 0.05 mg oral tablet 1 tablet, By Mouth, Daily, # 90 tablet, 1 Refills, Maintenance, 03/06/23 15:55:00 EDT, [facility], 155, cm, 02/21/23 10:28:00 EDT, Height, 52.25, kg, 04/27/22 14:46:00 EDT, Dry Weight Start Date: 03/06/23 Status: Ordered LORazepam 0.5 mg oral tablet 1 tablet = 0.5 mg, By Mouth, Daily, PRN for anxiety, # 24 tablet, 1 Refills, Maintenance, 10/18/22 10:48:00 EST, Tablet, [facility]/pharmacy #7111, 155, cm, 10/16/22 12:48:00 EST, Height, 52.25, kg, 04/27/22 14:46:00 EDT, Dry Weight Start Date: 10/18/22 Status: Ordered losartan 100 mg oral tablet 1 tablet, By Mouth, Daily, # 90 tablet, 3 Refills, Maintenance, 11/22/22 16:38:00 EST, [facility]/pharmacy#7111, 155, cm, 10/16/22 12:48:00 [...] capsule, 1 Refills, Maintenance, 03/21/23 12:14:00 EDT, [facility], 155, cm, 02/21/23 10:28:00 EDT, Height, 52.25, kg, 04/27/22 14:46:00 EDT,Dry Weight Start Date: 03/21/23 Status: Ordered valACYclovir 500 mg oral tablet 1, tablet, By Mouth, Daily, # 30 tablet, Refills 11, Maintenance, 12/22/22 9:50:00 EDT, Route to Pharmacy Electronically, [facility] ST[facility] 52765, 155, cm, 10/16/22 12:48:00 EST, Height, 52.25, [...] CT measuring 4.1 cm. 2CT scan 2016 96384; repeat 2028 4colo 2008 nl, repeat 2018 [...] RN Position: [facility] RN Member Role: Primary Care Nurse Name: Barby Frias Position: [facility] Outreach Member Role: Lifetime Consulting Physician Name: Miko Marshall MD Position: [facility] Physician - Primary Care Member Role: PCP Address: Address: [address] [place] [address]- [place] Name: Zachary Biswas MD Position: [facility] Renal MD Member Role: Lifetime Consulting Physician Address: Address: [address] [place] [address] [address] [facility] [place] [address]- Name: Moises BAH, Sridhar Position: [facility] RN Member Role: Primary Care Nurse Care Team Related Persons Name: MU CONTRERAS Address: [place] [address] Name: SHANELL COBIAN Address: [address] [address]
--- OUTSIDE RECORDS SUMMARY | 2024-07-03 12:16 | XMS_ITS | Continuity of Care Document ---
Author Organization [facility] Address [address] [facility], [facility] [address] [place] [address]- Care Team Providers Care Gm Mobile Name Role Phone Miko Farrell MD Primary Care Physician Encounter 12/01/19 - 12/08/19 [facility] [address], [facility] [[email or web address]] [address] [place] [address]- [phone] Attending Physician: Miko Farrell MD Admitting Physician: Miko Farrell MD Referring Physician: Miko Farrell MD Allergies, Adverse Reactions, [...] (oldterm) 05/26/09 Given Influenza Inactive (IM) (oldterm) 06/24/08 Give n tetanus-diphtheria toxoids (Td) 11 [...] 1 Refills, Maintenance, 10/14/19 10:36:00 EST, Tablet, [facility]/pharmacy #[id number], 158, cm, 05/22/19 10:37:00 EDT, [...] 1 Refills, Maintenance, 09/12/19 13:53:00 EST, Tablet, [facility]/pharmacy #7111, 158, cm, 05/22/19 10:37:00 EDT, Height, 57.6, kg, 05/21/18 14:53:00 EDT, Dry Weight Start Date: 09/12/19 Status: Ordered losartan 100 mg oral tablet 1 tablet = 100 mg, By Mouth, Daily, please make OV within next 1-2 months for further refills., # 30 tablet, 1 Refills, Maintenance, 11/12/19 16:41:00 EST, Tablet, [facility]/pharmacy #7111, 158, cm, 05/22/19 10:37:00 EDT, [...] 14:51:47 EST, Aerosol, Route to Pharmacy Electronically, [id number], [facility]/pharmacy #7111 Start Date: 07/30/19 Status: Ordered [...] Refills, Soft Stop, 10/17/19 11:04:00 EST, Powder, [facility]/pharmacy #7111, 0.5 mL Intramuscular Once,Instr:repeat dose [...] 12:57:08 EST, Aerosol, Route to Pharmacy Electronically, [id number], [facility], 158, cm, 0... Start Date: 08/21/19 [...] Maintenance, 07/25/1811:27:07 EST, Route to Pharmacy Electronically, [id number], [facility]/pharmacy #7111 Start Date: 07/25/18 Status: Ordered [...]
--- OUTSIDE RECORDS SUMMARY | 2024-07-03 12:16 | XMS_ITS | Continuity of Care Document ---
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 Name Role Phone Joanna VO, Miko Guillen Primary Care Physician [phone] [facility]): 08[facility]14[facility]23 - 09/13/23 [facility] Adult [address] [place] [address]- Attending Physician: Paco Anderson Admitting Physician: [place] Referring Physician: Admtr, ArTerrie Allergies, Adverse Reactions, Alerts Substance Reaction Severity [...] n 1Result Comment: [facility]: 98375-962-37 [facility] 3Result Comment: [06/23/2016] HIGH DOSE 4Admin Note: FLUARIX 5Admin Note: VIS GIVEN 6Admin Note: [facility] info given to patient 7Admin Note: [...] 1 Refills, Maintenance,05/25/22 15:32:00 EDT, [facility], 75, INHALE 2 PUFFS 4 TIMES A DAY WHEN NEEDED FOR WHEEZING, 155, cm, 04/27/22 14:46:00 EDT, Height, 52.25, kg, 0... Start Date: 05/25/22 Status: Ordered amLODIPine 10 mg oral tablet 10 mg, 1, tablet, By Mouth, Daily, # 90 tablet, Refills 3, Tot. Refills 3, Maintenance, 11/22/22 16:38:00 EST, [facility] fill upon patient request if [...] tablet, 6 Refills, Maintenance, 06/29/23 15:09:00 EDT, [facility]/pharmacy #7111, 155, cm, 06/29/23 14:50:00 EDT, Height, 52.25, kg, 04/27/22 14:46:00 EDT, Dry Weight Start Date: 06/29/23 Status: Ordered budesonide-formoterol 160 mcg-4.5 mcg/inh inhalation aerosol with adapter 2, puffs, Inhalation, 2 times a day, # 30.6 each, Refills 1, Maintenance, 08/29/23 5:44:00 EST, Route to Pharmacy Electronically, [id number], [facility] STORE [facility], 155, cm, 08/27/23 8:53:00 EST, Height, 52.25, [...] 11 Refills, Maintenance, 06/29/23 15:10:00 EDT, Nasal [place], [facility]/pharmacy #7111, Partial fill upon patient request if the prescription is for a scheduleII opioid drug., 1 sprays Nares, Both 2 times a day... Start Date: 06/29/23 Status: Ordered hydroCHLOROthiazide 12.5 mg oral capsule 1 capsule, By Mouth, Daily, # 90 capsule, 3 Refills, Maintenance, 12/28/22 7:50:00 EDT, [facility], 155, cm, 10/16/22 12:48:00 EST, Height, 52.25, kg, 04/27/22 14:46:00 EDT, Dry Weight Start Date: 12/28/22 Status: Ordered levothyroxine 0.05 mg oral tablet 1 tablet, By Mouth, Daily, # 90 tablet, 0 Refills, Maintenance, 08/29/23 5:44:00 EST, [facility], 155, cm, 08/27/23 8:53:00 EST, Height, 52.25, kg, 04/27/22 14:46:00 EDT, Dry Weight Start Date: 08/29/23 Status: Ordered LORazepam 0.5 mg oral tablet 1 tablet = 0.5 mg, By Mouth, Daily, PRN for anxiety, # 24 tablet, 1 Refills, Maintenance, 10/18/22 10:48:00 EST, Tablet, [facility]/pharmacy #7111, 155, cm, 10/16/22 12:48:00 EST, Height, 52.25, kg, 04/27/22 14:46:00 EDT, Dry Weight Start Date: 10/18/22 Status: Ordered losartan 100 mg oral tablet 1 tablet, By Mouth, Daily, # 90 tablet, 3 Refills, Maintenance, 11/22/22 16:38:00 EST, [facility]/pharmacy#7111, 155, cm, 10/16/22 12:48:00 [...] Refills, Maintenance, 08/03/23 9:45:00 EST, EC Capsule, [facility]/pharmacy #7111, Partial fill upon patient request if the prescription is for a scheduleII opioid drug., 155, cm, 08/02/23 13:40:00 EST, He... Start Date: 08/03/23 Status: Ordered omeprazole 20 mg oral enteric coated capsule 1 capsule = 20 mg, By Mouth, 2 times a day, ONE CAPSULE BY MOUTH TWICE A DAY, # 60 capsule, 0 Refills, Maintenance, 08/30/23 16:15:00 EST, [facility]/pharmacy #7111, Partial fill upon patient request if theprescription is for a schedule II opioid drug., 155... Start Date: 08/30/23 Status: Ordered Spiriva HandiHaler 18 mcg inhalation capsule 1 capsule, Inhalation, Daily, # 90 capsule, 1 Refills, Maintenance, 09/11/23 10:37:00 EST, [facility]/pharmacy #7111, 155, cm, 08/27/23 8:53:00 EST, Height, 52.25, kg, 04/27/22 14:46:00 EDT, Dry Weight Start Date: 09/11/23 Status: Ordered valACYclovir 500 mg oral tablet 1, tablet, By Mouth, Daily, # 30 tablet, Refills 11, Maintenance, 12/22/22 9:50:00 EDT, Route to Pharmacy Electronically, [facility], 155, cm, 10/16/22 12:48:00 EST, Height, 52.25, [...] Primary Care Nurse Name: Barby Frias Position: [facility] Outreach Member Role: Lifetime Consulting Physician Name: Miko Marshall MD Position: [facility] Physician - Primary Care Member Role: PCP Address: Address: [address] [place] [address]- [place] Name: Zachary Biswas MD Position: [facility] Renal MD Member Role: Lifetime Consulting Physician Address: Address: [address] [place] [address] [address] [facility] [place] [address]- [place] Name: Sridhar De Leon RN Position: [facility] RN Member Role: Primary Care Nurse Care Team Related Persons Name: MU CONTRERAS Address: [place] [address] Name: SHANELL COBIAN Address: [address] [address]
--- OUTSIDE RECORDS SUMMARY | 2024-07-03 12:16 | XMS_ITS | Continuity of Care Document ---
Author Organization 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 Name Role Phone Miko Marshall MD Primary Care Physician [facility]): 11/20/23 - 12/20/23 [facility] Adult [address] [place] [address]- Allergies, Adverse Reactions, Alerts Substance Reaction Severity [...] (oldterm) 10 06/24/08 Give n 1Result Comment: [facility]: [id number] 2Location History: [facility] 3Result Comment: [06/23/2016] HIGH DOSE [...] 16:38:00 EST, Route to Pharmacy Electronically, [facility]/pharmacy #2759, Partial fill upon patient request if the [...] 6 Refills, Maintenance, 06/29/23 15:09:00 EDT, [facility]/pharmacy #7111, 155, cm, 06/29/23 14:50:00 EDT, Height, 52.25, kg, 04/27/22 14:46:00 EDT, Dry Weight Start Date: 06/29/23 Status: Ordered budesonide-formoterol 160 mcg-4.5 mcg/inh inhalation aerosol with adapter 2, puffs, Inhalation, 2 times a day, # 30.6 each, Refills 11, Tot. Refills 11, Maintenance, 11/20/23 9:54:00 EST, Route to Pharmacy Electronically, [id number], [facility]/pharmacy #7111, 155, cm, 10/12/23 16:44:00 EST, [...] EST, [facility] Partial fill upon patient request if the prescription is for a schedule II o... Start Date: 09/28/23 Stop Date: 09/22/24 Status: Ordered fluticasone 50 mcg/inh nasal spray 1 sprays, Nares, Both, 2 times a day, # 16 Gm, 11 Refills, Maintenance, 06/29/23 15:10:00 EDT, Nasal [place], [facility]/pharmacy #7111, Partial fill upon patient request if the prescription is for a scheduleII opioid drug., 1 sprays Nares, Both 2 times a day... Start Date: 06/29/23 Status: Ordered hydroCHLOROthiazide 12.5 mg oral capsule 1 capsule, By Mouth, Daily, # 90 capsule, 3 Refills, Maintenance, 12/28/22 7:50:00 EDT, [facility], 155, cm, 10/16/22 12:48:00 EST, Height, 52.25, kg, 04/27/22 14:46:00 EDT, Dry Weight Start Date: 12/28/22 Status: Ordered levothyroxine 0.05 mg oral tablet 1 tablet, By Mouth, Daily, # 90 tablet, 0 Refills, Maintenance, 11/26/23 9:51:00 EDT, [facility] STORE 42492, 155, cm, 10/12/23 16:44:00 EST, Height, 52.25, kg, 04/27/22 14:46:00 EDT, Dry Weight Start Date: 11/26/23 Status: Ordered LORazepam 0.5 mg oral tablet 1 tablet = 0.5 mg, By Mouth, Daily, PRN for anxiety, # 24 tablet, 1 Refills, Maintenance, 12/11/23 9:46:00 EDT, Tablet, [facility]/pharmacy #7111, 155, cm, 10/12/23 16:44:00 EST, Height, 52.25, kg, 04/27/2214:46:00 EDT, Dry Weight Start Date: 12/11/23 Status: Ordered losartan 100 mg oral tablet 1 tablet, By Mouth, Daily, # 90 tablet, 3 Refills, Maintenance, 11/22/22 16:38:00 EST, [facility]/pharmacy#7111, 155, cm, 10/16/22 12:48:00 EST, [...] 4 Refills, Maintenance, 11/20/23 9:54:00 EST, [facility]/pharmacy #7111, 155, cm, 10/12/23 16:44:00 EST, Height, 52.25, kg, 04/27/22 14:46:00 EDT, Dry Weight Start Date: 11/20/23 Status: Ordered valACYclovir 500 mg oral tablet 1, tablet, By Mouth, Daily, # 30 tablet, Refills 11, Maintenance, 12/22/22 9:50:00 EDT, Route to Pharmacy Electronically, [facility] ST[facility] 38534, 155, cm, 10/16/22 12:48:00 EST, Height, 52.25, kg, 04/27/22 14:46:00 EDT, Dry Weight Start Date: 12/22/22 Status: Ordered Ventolin HFA 108 mcg/inh inhalation aerosol with adapter 2 puffs, Inhalation, Every 6 hours, PRN for wheezing, # 8 Gm, 11 Refills, Maintenance, 11/20/23 9:54:00 EST, Aerosol, [facility]/pharmacy #7111, Partial fill upon patient [...] CT measuring 4.1 cm. 2CT scan 2016 68989; repeat 2028 4colo 2009 nl, repeat 2019 [...] Personnel Name: Maria G Mendez RN Position: [facility] RN Member Role: Primary Care Nurse Name: Barby Frias Position: [facility] Outreach Member Role: Lifetime Consulting Physician Name: Miko Marshall MD Position: [facility] Physician - Primary Care Member Role: PCP Address: Address: [address] [place] [address]- Name: Zachary Biswas MD Position: [facility] Renal MD Member Role: Lifetime Consulting Physician Address: Address: [address] [place] [address] [address] [facility] [place] [address]- [place] Name: Moises BAH, Sridhar Position: [facility] RN Member Role: Primary Care Nurse Care Team Related Persons Name: MU CONTRERAS Address: [place] [address] Name: SHANELL COBIAN Address: [address] [address]
--- OUTSIDE RECORDS SUMMARY | 2024-07-03 12:16 | XMS_ITS | Continuity of Care Document ---
Author Organization [facility] Address [address] [place] [address]- Care Team Providers Care Business Job Titles Name Role Phone Miko Marshall MD Primary Care Physician [phone] [facility] - 12/16/23 [facility] [address] [place] [address] Allergies, Adverse Reactions, Alerts Substance Reaction [...] Give n 1Result Comment: [facility]: [id number] 2Location History: [facility] 3Result Comment: [06/23/2016] HIGH DOSE 4Admin Note: FLUARIX 5Admin Note: VIS GIVEN 6Admin Note: [facility] info given to patient 7Admin Note: [facility] [...] 11/22/22 16:38:00 EST, Route to Pharmacy Electronically, [facility]/pharmacy #4115, Partial fill upon patient request if the [...] tablet, 6 Refills, Maintenance, 06/29/23 15:09:00 EDT, [facility]/pharmacy #7111, 155, cm, 06/29/23 14:50:00 EDT, Height, 52.25, kg, 04/27/22 14:46:00 EDT, Dry Weight Start Date: 06/29/23 Status: Ordered budesonide-formoterol 160 mcg-4.5 mcg/inh inhalation aerosol with adapter 2, puffs, Inhalation, 2 times a day, # 30.6 each, Refills 11, Tot. Refills 11, Maintenance, 11/20/23 9:54:00 EST, Route to Pharmacy Electronically, [id number], [facility]/pharmacy #7111, 155, cm, 10/12/23 16:44:00 [...] [facility] Partial fill upon patient request if the prescription is for a schedule II o... Start Date: 09/28/23 Stop Date: 09/22/24 Status: Ordered fluticasone 50 mcg/inh nasal spray 1 sprays, Nares, Both, 2 times a day, # 16 Gm, 11 Refills, Maintenance, 06/29/23 15:10:00 EDT, Nasal [place], [facility]/pharmacy #7111, Partial fill upon patient request if the prescription is for a scheduleII opioid drug., 1 sprays Nares, Both 2 times a day... Start Date: 06/29/23 Status: Ordered hydroCHLOROthiazide 12.5 mg oral capsule 1 capsule, By Mouth, Daily, # 90 capsule, 3 Refills, Maintenance, 12/28/22 7:50:00 EDT, [facility], 155, cm, 10/16/22 12:48:00 EST, Height, 52.25, kg, 04/27/22 14:46:00 EDT, Dry Weight Start Date: 12/28/22 Status: Ordered levothyroxine 0.05 mg oral tablet 1 tablet, By Mouth, Daily, # 90 tablet, 0 Refills, Maintenance, 11/26/23 9:51:00 EDT, [facility] STORE 14296, 155, cm, 10/12/23 16:44:00 EST, Height, 52.25, kg, 04/27/22 14:46:00 EDT, Dry Weight Start Date: 11/26/23 Status: Ordered LORazepam 0.5 mg oral tablet 1 tablet = 0.5 mg, By Mouth, Daily, PRN for anxiety, # 24 tablet, 1 Refills, Maintenance, 12/11/23 9:46:00 EDT, Tablet, [facility]/pharmacy #7111, 155, cm, 10/12/23 16:44:00 [...] capsule, 4 Refills, Maintenance, 11/20/23 9:54:00 EST, [facility]/pharmacy #7111, 155, cm, 10/12/23 16:44:00 EST, Height, 52.25, kg, 04/27/22 14:46:00 EDT, Dry Weight Start Date: 11/20/23 Status: Ordered valACYclovir 500 mg oral tablet 1, tablet, By Mouth, Daily, # 30 tablet, Refills 11, Maintenance, 12/22/22 9:50:00 EDT, Route to Pharmacy Electronically, [facility] ST[facility] 23202, 155, cm, 10/16/22 12:48:00 EST, Height, 52.25, kg, 04/27/22 14:46:00 EDT, Dry Weight Start Date: 12/22/22 Status: Ordered Ventolin HFA 108 mcg/inh inhalation aerosol with adapter 2 puffs, Inhalation, Every 6 hours, PRN for wheezing, # 8 Gm, 11 Refills, Maintenance, 11/20/23 9:54:00 EST, Aerosol, [facility]/pharmacy #7111, Partial fill upon [...] CT measuring 4.1 cm. 2CT scan 2016 68535; repeat 2028 4colo 2009 nl, repeat 2019 [...] Primary Care Member Role: PCP Address: Address: [address] [place] [address]- Name: Zachary Biswas MD Position: [facility] Renal MD Member Role: Lifetime Consulting Physician Address: Address: [address] [place] [address] [address] [facility] [place] [address]- [place] Name: Moises BAH, Sridhar Position: [facility] RN Member Role: Primary Care Nurse Care Team Related Persons Name: MU CONTRERAS Address: [place] [address] Name: SHANELL COBIAN Address: [address] [address]
--- OUTSIDE RECORDS SUMMARY | 2024-07-03 12:16 | XMS_ITS | Continuity of Care Document ---
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 Start Date: 04/15/21 Status: Ordered atorvastatin 10 mg oral tablet 0.5 tablet, By Mouth, Daily, # 45 tablet, 1 Refills, [facility] STORE 78517, 155, cm, 05/16/21 12:39:00 EDT, Height Start [...] 05/20/21 11:04:00 EDT, Route to Pharmacy Electronically, [facility]/pharmacy #7111, Partial fill upon patientrequest if the prescription is for a schedule II op... Start Date: 05/20/21 Status: Ordered levothyroxine 0.05 mg oral tablet 1 tablet, By Mouth, Daily, # 90 tablet, 1 Refills, Maintenance, 03/11/21 15:34:00 EDT, [facility], 158, cm, 02/01/21 9:13:00 EDT, Height Start Date: 03/11/21 Status: Ordered LORazepam 0.5 mg oral tablet 1 tablet = 0.5 mg, By Mouth, Daily, PRN for anxiety, # 24 tablet, 1 Refills, Maintenance, 08/09/20 10:16:00 EST, Tablet, [facility]/pharmacy #7111, 158, cm, 08/09/20 9:40:00 EST, Height Start Date: 08/09/20 Status: Ordered losartan 100 mg oral tablet 1 tablet, By Mouth, Daily, # 90 tablet, 1 Refills, Maintenance, 03/19/21 21:39:00 EDT, [facility], 158, cm, 03/16/21 9:06:00 EDT, Height Start [...] 7:30:00 EST, Aerosol, Route to Pharmacy Electronically, [id number], [facility], cm, 09/30/20 1... Start Date: 11/22/20 Stop Date: 01/21/21 Status: Ordered Spiriva HandiHaler 18 mcg inhalation capsule 1 capsule, Inhalation, Daily, # 90 capsule, 1 Refills, Maintenance, 02/22/21 14:59:00 EDT, [facility], 158, cm, 02/01/21 9:13:00 EDT, Height Start Date: 02/22/21 Status: Ordered Symbicort 160mcg/4.5mcg Inhaler 2, puffs, Inhalation, 2 times a day, 90 DAY SUPPLY, # 3 each, Refills 1, Tot. Refills 1, Maintenance, 01/04/21 11:06:00 EDT, Aerosol, Route to Pharmacy Electronically, [id number], [facility] 158, cm, 09/30/20 14:41:0... Start Date: 01/04/21 Status: Ordered Valtrex 500 mg oral tablet 500 mg, 1, tablet, By Mouth, Daily, # 30 tablet, Refills 11, Tot. Refills 11, Maintenance, 10/19/2111:02:00 EST, [facility] to [facility] Electronically, [facility] 158, cm, 09/30/20 14:41:00 EST,Height [...] CT measuring 4.1 cm. 2CT scan 2015 72959; repeat 2028 4colo 2008 nl, repeat 2019 [...]
--- OUTSIDE RECORDS SUMMARY | 2024-07-03 12:16 | XMS_ITS | Continuity of Care Document ---
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 Start Date: 05/25/22 Status: Ordered amLODIPine 10 mg oral tablet 10 mg, 1, tablet, By Mouth, Daily, # 90 tablet, Refills 3, Tot. Refills 3, Maintenance, 11/22/22 16:38:00 EST, Route to Pharmacy Electronically, [facility]/pharmacy #7111, Partial fill upon patient [...] Maintenance, 06/29/23 15:09:00 EDT, [facility]/pharmacy #7111, 155, cm, 06/29/23 14:50:00 EDT, Height, 52.25, kg, 04/27/22 14:46:00 EDT, Dry Weight Start Date: 06/29/23 Status: Ordered budesonide-formoterol 160 mcg-4.5 mcg/inh inhalation aerosol with adapter 2, puffs, Inhalation, 2 times a day, # 30.6 each, Refills 1, Maintenance, 02/23/23 8:46:00 EDT, Route to Pharmacy Electronically, [id number], [facility] STORE [address]6685, 155, cm, 02/21/23 10:28:00 EDT, Height, 52.25, [...] 11 Refills, Maintenance, 06/29/23 15:10:00 EDT, Nasal [place], [facility]/pharmacy #7111, Partial fill upon patient request if the prescription is for a scheduleII opioid drug., 1 sprays Nares, Both 2 times a day... Start Date: 06/29/23 Status: Ordered hydroCHLOROthiazide 12.5 mg oral capsule 1 capsule, By Mouth, Daily, # 90 capsule, 3 Refills, Maintenance, 12/28/22 7:50:00 EDT, [facility], 155, cm, 10/16/22 12:48:00 EST, Height, 52.25, kg, 04/27/22 14:46:00 EDT, Dry Weight Start Date: 12/28/22 Status: Ordered levothyroxine 0.05 mg oral tablet 1 tablet, By Mouth, Daily, # 90 tablet, 1 Refills, Maintenance, 03/06/23 15:55:00 EDT, [facility], 155, cm, 02/21/23 10:28:00 EDT, Height, 52.25, kg, 04/27/22 14:46:00 EDT, Dry Weight Start Date: 03/06/23 Status: Ordered LORazepam 0.5 mg oral tablet 1 tablet = 0.5 mg, By Mouth, Daily, PRN for anxiety, # 24 tablet, 1 Refills, Maintenance, 10/18/22 10:48:00 EST, Tablet, [facility]/pharmacy #7111, 155, cm, 10/16/22 12:48:00 EST, [...] 0 Refills, Maintenance, 06/29/23 15:11:00 EDT, ECCapsule, [facility]/pharmacy #7111, Partial fill upon patient request if the prescription is for a schedule II opioid drug., 155, cm, 06/29/23 14:50:00 EDT, H... Start Date: 06/29/23 Status: Ordered Spiriva HandiHaler 18 mcg inhalation capsule 1 capsule, Inhalation, Daily, # 90 capsule, 1 Refills, Maintenance, 03/21/23 12:14:00 EDT, [facility], 155, cm, 02/21/23 10:28:00 EDT, Height, 52.25, kg, 04/27/22 14:46:00 EDT,Dry Weight Start Date: 03/21/23 Status: Ordered valACYclovir 500 mg oral tablet 1, tablet, By Mouth, Daily, # 30 tablet, Refills 11, Maintenance, 12/22/22 9:50:00 EDT, Route to Pharmacy Electronically, [facility] ST[facility] 39099, 155, cm, 10/16/22 12:48:00 EST, Height, 52.25, [...] Care Member Role: PCP Address: Address: [address] [place] [address]- Name: Zachary Biswas MD Position: [facility] Renal MD Member Role: Lifetime Consulting Physician Address: Address: [address] [place] [address] [address] [facility] [place] [address]- Name: Sridhar De Leon RN Position: [facility] RN Member Role: Primary Care Nurse Care Team Related Persons Name: MU CONTRERAS Address: [place] [address] Name: SHANELL COBIAN Address: home [address] [place] [address]
--- OUTSIDE RECORDS SUMMARY | 2024-07-03 12:16 | XMS_ITS | Continuity of Care Document ---
Author Organization [facility] Samir Durga lt Address [address] [place] [address]- Care Team Providers Care Mainframe Systems Engineer Name Role Phone Miko Marshall MD Primary Care Physician [phone] [place] [facility] [place] 01/19[place]23 - 01/26/23 [facility] Adult [address] [place] [address]- Encounter Diagnosis Alcohol intake above recommended sensible limits without complication(Discharge Diagnosis) - 01/19/23 Ascending aortic aneurysm(Discharge Diagnosis) - 01/19/23 HTN (hypertension)(Discharge Diagnosis) - 01/19/23 Attending Physician: Miko Marshall MD Allergies, Adverse [...] FLUARIX 4Admin Note: VIS GIVEN 5Admin Note: [facility] info given to patient 6Admin [...] 1 Refills, Maintenance,05/25/22 15:32:00 EDT, [facility], 75, INHALE 2 PUFFS 4 TIMES A DAY WHEN NEEDED FOR WHEEZING, 155, cm, 04/27/22 14:46:00 EDT, Height, 52.25, kg, 0... Start Date: 05/25/22 Status: Ordered amLODIPine 10 mg oral tablet 10 mg, 1, tablet, By Mouth, Daily, # 90 tablet, Refills 3, Tot. Refills 3, Maintenance, 11/22/22 16:38:00 EST, Route to Pharmacy Electronically, [facility]/pharmacy #[id number], Partial fill upon patient request if the prescription is for a schedule II opioid drug... Start Date: 11/22/22 Status: Ordered atorvastatin 10 mg oral tablet 0.5 tablet, By Mouth, Daily, # 45 tablet, 3 Refills, 04/10/22 13:41:00 EDT, [facility]/pharmacy #[id number], 155, cm, 04/10/22 13:29:00 EDT, Height Start Date: 04/10/22 Status: Ordered budesonide-formoterol 160 mcg-4.5 mcg/inh inhalation aerosol with adapter 2, puffs, Inhalation, 2 times a day, # 30.6 each, Refills 1, Tot. Refills 1, 07/17/22 13:30:00 EDT,Route to Pharmacy Electronically, [id number], [facility]/pharmacy #[id number], 155, cm, 06/12/22 14:03:00 [...] capsule, 3 Refills, Maintenance, 12/28/22 7:50:00 EDT, [facility] ST[facility] 77[facility], 155, cm, 10/16/22 12:48:00 EST, Height, 52.25, kg, 04/27/22 14:46:00 EDT, Dry Weight Start Date: 12/28/22 Status: Ordered levothyroxine 0.05 mg oral tablet 1 tablet, By Mouth, Daily, # 90 tablet, 1 Refills, Maintenance, 09/06/22 15:47:00 EST, [facility]58[facility], 155, cm, 06/12/22 14:03:00 EDT, Height, 52.25, kg, 04/27/22 14:46:00 EDT, Dry Weight Start Date: 09/06/22 Status: Ordered LORazepam 0.5 mg oral tablet 1 tablet = 0.5 mg, By Mouth, Daily, PRN for anxiety, # 24 tablet, 1 Refills, Maintenance, 10/18/22 10:48:00 EST, Tablet, [facility]/pharmacy #[id number], 155, cm, 10/16/22 12:48:00 EST, Height, 52.25, kg, 04/27/22 14:46:00 EDT, Dry Weight Start Date: 10/18/22 Status: Ordered losartan 100 mg oral tablet 1 tablet, By Mouth, Daily, # 90 tablet, 3 Refills, Maintenance, 11/22/22 16:38:00 EST, [facility]/pharmacy#[id number], 155, cm, 10/16/22 12:48:00 EST, [...] 12/22/22 9:50:00 EDT, Route to Pharmacy Electronically, [facility], 155, cm, 10/16/22 12:48:00 EST, Height, 52.25, [...] CT measuring 4.1 [address]. 2CT scan 2016 31475; repeat 2028 4colo 2008 nl, repeat 2018 5Problem added by Discern Expert 6colo 2018 7egd 2012 no barretts 8colo 2018 9Status post laparotomy with lysis of adhesions and repair of incarcerated ventral hernia. Surgery performed March 2018. 10Thyroid peroxidase antibody positive Diagnosis Diagnosis Type Effective Dates Health Status Clinical Service Informant Alcohol intake above recommended sensible limits without complication Discharge Diagnosis 01/19/23 Ascending aortic aneurysm Discharge Diagnosis 5/5/23 HTN (hypertension) Discharge Diagnosis 01/19/23 Vital Signs Most recent to oldest [Reference Range]: 1 Height 155 cm (01/19/23 3:38 PM) Weight 54.3 kg (01/19/23 3:38 PM) Oxygen Saturation [94-100 %] 97 % (01/19/23 3:38 PM) Pulse Rate [55-90 bpm] 77 bpm (01/19/23 3:38 PM) Body Mass Index [18.5-24.99 kg/m2] 22.6 kg/m2 (01/19/23 3:38 PM) Blood Pressure [90-138/55-84 mm Hg] 100/ 76mm Hg (01/19/23 3:38 PM) Mode of Delivery (Oxygen) Room air (01/19/23 3:38 PM) Blood pressure sites Arm, left (01/19/23 3:38 PM) Weight Obtained Via Standing scale (01/19/23 3:38 PM) Social History Social History Type Response Smoking Status Former smoker; Other : quit 15 years ago; entered on: 03/16/16 Sex Female Patient Care team information Care Team Personnel Name: Maria G Mendez RN Position: [facility] RN Member Role: Primary Care Nurse Name: Barby Frias Position: [facility] Outreach Member Role: Lifetime Consulting Physician Name: Miko Marshall MD Position: [facility] Primary Care Physician Member Role: PCP Address: Address: [address] [place] [id number]- Name: Sridhar De Leon RN Position: [facility] RN Member Role: Primary Care Nurse Care Team Related Persons Name: MU CONTRERAS Address: [place] [address] Name: SHANELL COBIAN Address: [address] [address]
--- OUTSIDE RECORDS SUMMARY | 2024-07-03 12:16 | XMS_ITS | Continuity of Care Document ---
Author Organization [facility] Address [address] [place] [address]- Care Team Providers Care Document Imaging Specialist Name Role Phone Joanna VO, Miko Guillen Primary Care Physician [phone] Encounter 04/06/21 - 04/13/21 [facility] [place] [address], [address] [place] [address]- Attending Physician: Miko Marshall MD Admitting Physician: Miko Marshall MD Referring Physician: Miko Marshall MD [...] 02/22/21 15:00:00 EDT, Route to Pharmacy Electronically, [facility]/pharmacy #[id number], Partial fill upon patient requestif the prescription is for a schedule II opioid tian... Start Date: 02/22/21 Status: Ordered atorvastatin 10 mg oral tablet 0.5, By Mouth, Daily, # 45 tablet, 1 Refills, Maintenance, 10/16/20 11:28:00 EST, Tablet, [facility]/pharmacy #[id number], 158, cm, 09/30/20 14:41:00 EST, Height Start Date: 10/16/20 Status: Ordered Centrum Silver By Mouth, Daily, 0 Refills, Maintenance, 01/11/17 14:23:47 Start Date: 01/11/17 Status: Ordered cloNIDine 0.2 mg oral tablet 0.2 mg, 1, tablet, By Mouth, 2 times a day, # 60 tablet, Refills 11, Tot. Refills 11, Maintenance, 03/16/21 9:37:00 EDT, Route to Pharmacy Electronically, [facility]/pharmacy #[id number], Partial fill upon patient request if the prescription is for a schedule II o... Start Date: 03/16/21 Status: Ordered levothyroxine 0.05 mg oral tablet 1 tablet, By Mouth, Daily, # 90 tablet, 1 Refills, Maintenance, 03/11/21 15:34:00 EDT, [facility], 158, cm, 02/01/21 9:13:00 EDT, Height Start Date: 03/11/21 Status: Ordered LORazepam 0.5 mg oral tablet 1 tablet = 0.5 mg, By Mouth, Daily, PRN for anxiety, # 24 tablet, 1 Refills, Maintenance, 08/09/20 10:16:00 EST, Tablet, [facility]/pharmacy #[id number], 158, cm, 08/09/20 9:40:00 EST, Height Start Date: 08/09/20 Status: Ordered losartan 100 mg oral tablet 1 tablet, By Mouth, Daily, # 90 tablet, 1 Refills, Maintenance, 03/19/21 21:39:00 EDT, [facility] 84[facility], 158, cm, 03/16/21 9:06:00 EDT, Height Start [...] 7:30:00 EST, Aerosol, Route to Pharmacy Electronically, [id number], [id number] 158, cm, 09/30/20 1... Start Date: 11/22/20 Stop Date: 01/21/21 Status: Ordered Spiriva HandiHaler 18 mcg inhalation capsule 1 capsule, Inhalation, Daily, # 90 capsule, 1 Refills, Maintenance, 02/22/21 14:59:00 EDT, [facility], 158, cm, 02/01/21 9:13:00 EDT, Height Start Date: 02/22/21 Status: Ordered Symbicort 160mcg/4.5mcg Inhaler 2, puffs, Inhalation, 2 times a day, 90 DAY SUPPLY, # 3 each, Refills 1, Tot. Refills 1, Maintenance, 01/04/21 11:06:00 EDT, Aerosol, Route to Pharmacy Electronically, [id number], [id number], 158, cm, 09/30/20 14:41:0... Start Date: 01/04/21 Status: Ordered Valtrex 500 mg oral tablet 500 mg, 1, tablet, By Mouth, Daily, # 30 tablet, Refills 11, Tot. Refills 11, Maintenance, 10/19/2111:02:00 EST, [id number] 158, cm, 09/30/20 14:41:00 [...] CT measuring 4.1 cm. 2CT scan 2015 98199; repeat 2028 4colo 2008 nl, repeat 2018 [...]
--- OUTSIDE RECORDS SUMMARY | 2024-07-03 12:16 | XMS_ITS | Continuity of Care Document ---
Author Organization [facility] Eduardo Dawson Durga lt Address [address] [place] [address]- Care Team Providers Care Websphere Portal Architect Name Role Phone Miko Marshall MD Primary Care Physician [phone] Encounter [facility] Date(s): 10/18/22 - 11/17/22 [facility] Adult [address] [place] [address]- Allergies, Adverse Reactions, Alerts Substance Reaction Severity [...] VIS GIVEN 5Admin Note: [facility] info given to patient 6Admin [...] 25.5 each, 1 Refills, Maintenance,05/25/22 15:32:00 EDT, [facility], 75, INHALE 2 PUFFS 4 TIMES A DAY WHEN NEEDED FOR WHEEZING, 155, cm, 04/27/22 14:46:00 EDT, Height, 52.25, kg, 0... Start Date: 05/25/22 Status: Ordered amLODIPine 10 mg oral tablet 10 mg, 1, tablet, By Mouth, Daily, # 90 tablet, Refills 3, Tot. Refills 3, Maintenance, 09/02/21 9:38:00 EST, Route to Pharmacy Electronically, [facility]/pharmacy #[id number], Partial fill upon patient request if the prescription is for a schedule II opioid drug.... Start Date: 09/02/21 Status: Ordered atorvastatin 10 mg oral tablet 0.5 tablet, By Mouth, Daily, # 45 tablet, 3 Refills, 04/10/22 13:41:00 EDT, [facility]/pharmacy #[id number], 155, cm, 04/10/22 13:29:00 EDT, Height Start Date: 04/10/22 Status: Ordered brompheniramine/dextromethorphan/pseudoephedrine 1 mg-5 mg-15 mg/5 mL oral liquid 5 mL, By Mouth, 2 times a day, PRN Cough, # 473 mL, 1 Refills, Maintenance, 10/16/22 13:18:00 EST, [facility]/pharmacy #[id number], Partial fill upon patient request if the prescription is for a schedule II opioid drug., 5 mL By Mouth 2 times a day,x30 days,PRN:Co... Start Date: 10/16/22 Stop Date: 12/15/22 Status: Ordered budesonide-formoterol 160 mcg-4.5 mcg/inh inhalation aerosol with adapter 2, puffs, Inhalation, 2 times a day, # 30.6 each, Refills 1, Tot. Refills 1, 07/17/22 13:30:00 EDT,Route to Pharmacy Electronically, [id number], [facility]/pharmacy #[id number], 155, cm, 06/12/22 14:03:00 EDT, Height, 52.25, kg, 04/27/22... Start Date: 07/17/22 Status: Ordered Centrum Silver By Mouth, Daily, 0 Refills, Maintenance, 01/11/17 14:23:47 Start Date: 01/11/17 Status: Ordered cloNIDine 0.1 mg oral tablet 0.1 mg, 1, tablet, By Mouth, 2 times a day, # 180 tablet, Refills 3, Tot. Refills 3, Maintenance, 09/02/21 9:38:00 EST, Route to Pharmacy Electronically, [facility]/pharmacy #[id number], Partial fill upon patientrequest if the prescription is for a schedule II op... Start Date: 09/02/21 Status: Ordered hydroCHLOROthiazide 12.5 mg oral capsule 1 capsule = 12.5 mg, By Mouth, Daily, # 90 capsule, 3 Refills, Maintenance, 10/19/21 11:02:00 EST, Capsule, [facility]/pharmacy #[id number], Partial fill upon patient request if the prescription is for a scheduleII opioid drug., 155, cm, 10/05/21 13:33:00 EST, He... Start Date: 10/19/21 Status: Ordered levothyroxine 0.05 mg oral tablet 1 tablet, By Mouth, Daily, # 90 tablet, 1 Refills, Maintenance, 09/06/22 15:47:00 EST, [facility], 155, cm, 06/12/22 14:03:00 EDT, Height, 52.25, kg, 04/27/22 14:46:00 EDT, Dry Weight Start Date: 09/06/22 Status: Ordered LORazepam 0.5 mg oral tablet 1 tablet = 0.5 mg, By Mouth, Daily, PRN for anxiety, # 24 tablet, 1 Refills, Maintenance, 10/18/22 10:48:00 EST, Tablet, [facility]/pharmacy #[id number], 155, cm, 10/16/22 12:48:00 EST, Height, 52.25, kg, 04/27/22 14:46:00 EDT, Dry Weight Start Date: 10/18/22 Status: Ordered losartan 100 mg oral tablet 1 tablet, By Mouth, Daily, # 90 tablet, 0 Refills, Maintenance, 08/15/22 10:52:00 EST, [facility], 155, cm, 06/12/22 14:03:00 EDT, Height, 52.25, [...] capsule, 1 Refills, Maintenance, 05/18/22 12:36:00 EDT, [facility], Rx resent to [facility] as pt requested, 155, cm, 04/27/22 14:46:00 EDT, Height, 52.25, kg, 04/27/22 14:46:00 EDT, Dry Weight Start Date: 05/18/22 Status: Ordered tiZANidine 2 mg oral capsule 1 capsule = 2 mg, By Mouth, Every 8 hours, # 42 capsule, 0 Refills, Maintenance, 03/10/22 13:48:00 EDT, [facility]/pharmacy #[id number], Partial fill upon patient request if the prescription is for a schedule II opioid drug., 155, cm, 03/10/22 13:27:00 EDT, Height Start Date: 03/10/22 Stop Date: 03/24/22 Status: Ordered valACYclovir 500 mg oral tablet 1, tablet, By Mouth, Daily, # 30 tablet, Refills 11, Route to Pharmacy Electronically, [facility], 155, cm, 10/05/21 13:33:00 EST, Height Start [...] CT measuring 4.1 cm. 2CT scan 2016 78027; repeat 2028 4colo 2009 nl, repeat 2019 [...] Miko Marshall MD Position: [facility] Primary Care Physician Member Role: PCP Address: Address: [address] [place] [address]- Name: Sridhar De Leon RN Position: [facility] RN Member Role: Primary Care Nurse Care Team Related Persons Name: MU CONTRERAS Address: [place] [address] Name: SHANELL COBIAN Address: [address] [address]
--- OUTSIDE RECORDS SUMMARY | 2024-07-03 12:16 | XMS_ITS | Continuity of Care Document ---
Author Organization [facility] Samir Durga lt Address [address] [place] [address]- Care Team Providers Care Sql Etl Developer Name Role Phone Joanna VO, Miko Guillen Primary Care Physician Encounter [facility] Date(s): 04/13/22 - 04/20/22 [facility] Adult [address] [place] [address]- Encounter Diagnosis COVID-19 virus infection(Discharge Diagnosis) - 04/13/22 Attending Physician: Oscar MENCHACA, Wen Allergies, Adverse Reactions, Alerts Substance Reaction Severity [...] n 1Admin Note: historical data 2Location History: [facility] 3Result Comment: [06/23/2016] HIGH DOSE 4Admin [...] 09/02/21 9:38:00 EST, Route to Pharmacy Electronically, [facility]/pharmacy #[id number], Partial fill upon patient request if the prescription is for a schedule II opioid drug.... Start Date: 09/02/21 Status: Ordered atorvastatin 10 mg oral tablet 0.5 tablet, By Mouth, Daily, # 45 tablet, 3 Refills, 04/10/22 13:41:00 EDT, [facility]/pharmacy #[id number], 155, cm, 04/10/22 13:29:00 EDT, Height Start Date: 04/10/22 Status: Ordered budesonide-formoterol 160 mcg-4.5 mcg/inh inhalation aerosol with adapter 2, puffs, Inhalation, 2 times a day, # 30.6 each, Refills 1, Route to Pharmacy Electronically, [id number], [facility], 155, cm, 05/16/21 12:39:00 EDT, Height Start Date: 06/25/21 Status: Ordered Centrum Silver By Mouth, Daily, 0 Refills, Maintenance, 01/11/17 14:23:47 Start Date: 01/11/17 Status: Ordered cloNIDine 0.1 mg oral tablet 0.1 mg, 1, tablet, By Mouth, 2 times a day, # 180 tablet, Refills 3, Tot. Refills 3, Maintenance, 09/02/21 9:38:00 EST, Route to Pharmacy Electronically, [facility]/pharmacy #[id number], Partial fill upon patientrequest if the prescription is for a schedule II op... Start Date: 09/02/21 Status: Ordered hydroCHLOROthiazide 12.5 mg oral capsule 1 capsule = 12.5 mg, By Mouth, Daily, # 90 capsule, 3 Refills, Maintenance, 10/19/21 11:02:00 EST, Capsule, [facility]/pharmacy #[id number], Partial fill upon patient request if the prescription is for a scheduleII opioid drug., 155, cm, 10/05/21 13:33:00 EST, He... Start Date: 10/19/21 Status: Ordered levothyroxine 0.05 mg oral tablet See Instructions, TAKE 1 TABLET BY MOUTH EVERY DAY, # 90 tablet, 3 Refills, [facility], 155, cm, 04/10/22 13:29:00 EDT, Height Start Date: 04/10/22 Status: Ordered LORazepam 0.5 mg oral tablet 1 tablet = 0.5 mg, By Mouth, Daily, PRN for anxiety, # 24 tablet, 1 Refills, Maintenance, 09/02/21 9:33:00 EST, Tablet, [facility]/pharmacy #[id number], 155, cm, 09/02/21 8:06:00 EST, Height Start Date: 09/02/21 Status: Ordered losartan 100 mg oral tablet 1 tablet, By Mouth, Daily, # 90 tablet, 1 Refills, [facility], 155, cm, 11/14/21 13:39:00 EST,Height Start Date: [...] 7:30:00 EST, Aerosol, Route to Pharmacy Electronically, [id number], [facility]/pharmacy #[id number], 158, cm, 09/30/20 1... Start [...] capsule, 0 Refills, Maintenance, 03/10/22 13:48:00 EDT, [facility]/pharmacy #[id number], Partial fill upon patient request if the prescription is for a schedule II opioid drug., 155, cm, 03/10/22 13:27:00 EDT, Height Start Date: 03/10/22 Stop Date: 03/24/22 Status: Ordered valACYclovir 500 mg oral tablet 1, tablet, By Mouth, Daily, # 30 tablet, Refills 11, Route to Pharmacy Electronically, [facility], 155, cm, 10/05/21 13:33:00 EST, Height Start [...] CT measuring 4.[address] 2CT scan 2016 [address]116; repeat 2028 4colo 2008 nl, repeat 2019 5colo 2019 6egd 2012 no barretts 7colo 2019 8Status post laparotomy with lysis of adhesions and repair of incarcerated ventral hernia. Surgery performed March 2018. 9Thyroid peroxidase antibody positive Diagnosis Diagnosis Type Effective Dates Health Status Cl inical Service Informant COVID-19 virus infection Discharge Diagnosis 04/13/22 Vital Signs Most recent to oldest [Reference Range]: 1 Height 155 cm (04/13/22 10:34 AM) Temperature [96.8-100.4 DegF] 99.6 DegF (04/13/22 10:34 AM) Temperature Route Oral (04/13/22 10:34 AM) Social History Social History Type Response Smoking Status Former smoker; Other : quit 15 years ago; entered on: 03/16/16 Sex Female
--- OUTSIDE RECORDS SUMMARY | 2024-07-03 12:16 | XMS_ITS | Continuity of Care Document ---
Author Organization [facility] Address [address], [address] [place] [address]- Care Team Providers Care Hatcher[employer] Employee Name Role Phone Miko Marshall MD Primary Care Physician Encounter 11/08/23 - 11/15/23 [facility] [address], [facility] [address] [place] [address]- Attending Physician: Miko Marshall MD Admitting Physician: [...] Give n 1Result Comment: [facility]: [id number] 2Location History: [facility] 3Result Comment: [06/23/2016] HIGH DOSE 4Admin Note: FLUARIX 5Admin Note: VIS GIVEN 6Admin Note: [facility] info given to patient 7Admin [...] 11/22/22 16:38:00 EST, Route to Pharmacy Electronically, [facility]/pharmacy #[id number], Partial fill upon patient request if the [...] tablet, 6 Refills, Maintenance, 06/29/23 15:09:00 EDT, [facility]/pharmacy #[id number], 155, cm, 06/29/23 14:50:00 EDT, Height, 52.25, kg, 04/27/22 14:46:00 EDT, Dry Weight Start Date: 06/29/23 Status: Ordered budesonide-formoterol 160 mcg-4.5 mcg/inh inhalation aerosol with adapter 2, puffs, Inhalation, 2 times a day, # 30.6 each, Refills 1, Maintenance, 08/29/23 5:44:00 EST, Route to Pharmacy Electronically, [id number], [facility], 155, cm, 08/27/23 8:53:00 EST, Height, 52.25, [...] 09/28/23 13:34:00 EST, Route to Pharmacy Electronically, [facility]/pharmacy #[id number], Partial fill upon patient request if the prescription is for a schedule II o... Start Date: 09/28/23 Stop Date: 09/22/24 Status: Ordered fluticasone 50 mcg/inh nasal spray 1 sprays, Nares, Both, 2 times a day, # 16 Gm, 11 Refills, Maintenance, 06/29/23 15:10:00 EDT, Nasal [place], [facility]/pharmacy #[id number], Partial fill upon patient request if the prescription is for a scheduleII opioid drug., 1 sprays Nares, Both 2 times a day... Start Date: 06/29/23 Status: Ordered hydroCHLOROthiazide 12.5 mg oral capsule 1 capsule, By Mouth, Daily, # 90 capsule, 3 Refills, Maintenance, 12/28/22 7:50:00 EDT, [facility], 155, cm, 10/16/22 12:48:00 EST, Height, 52.25, kg, 04/27/22 14:46:00 EDT, Dry Weight Start Date: 12/28/22 Status: Ordered levothyroxine 0.05 mg oral tablet 1 tablet, By Mouth, Daily, # 90 tablet, 0 Refills, Maintenance, 08/29/23 5:44:00 EST, [facility], 155, cm, 08/27/23 8:53:00 EST, Height, 52.25, kg, 04/27/22 14:46:00 EDT, Dry Weight Start Date: 08/29/23 Status: Ordered LORazepam 0.5 mg oral tablet 1 tablet = 0.5 mg, By Mouth, Daily, PRN for anxiety, # 24 tablet, 1 Refills, Maintenance, 10/18/22 10:48:00 EST, Tablet, [facility]/pharmacy #[id number], 155, cm, 10/16/22 12:48:00 EST, Height, 52.25, kg, 04/27/22 14:46:00 EDT, Dry Weight Start Date: 10/18/22 Status: Ordered losartan 100 mg oral tablet 1 tablet, By Mouth, Daily, # 90 tablet, 3 Refills, Maintenance, 11/22/22 16:38:00 EST, [facility]/pharmacy#[id number], 155, cm, 10/16/22 12:48:00 EST, Height, 52.25, kg, 04/27/22 14:46:00 EDT, Dry Weight Start Date: 11/22/22 Status: Ordered magnesium oxide 500 mg oral tablet 1 tablet = 500 mg, By Mouth, Daily, 0 Refills, Maintenance, 06/28/18 10:06:58 EDT Start Date: 06/28/18 Status: Ordered Spiriva HandiHaler 18 mcg inhalation capsule 1 capsule, Inhalation, Daily, # 90 capsule, 1 Refills, Maintenance, 09/11/23 10:37:00 EST, [facility]/pharmacy #[id number], 155, cm, 08/27/23 8:53:00 EST, Height, 52.25, kg, 04/27/22 14:46:00 EDT, Dry Weight Start Date: 09/11/23 Status: Ordered valACYclovir 500 mg oral tablet 1, tablet, By Mouth, Daily, # 30 tablet, Refills 11, Maintenance, 12/22/22 9:50:00 EDT, Route to Pharmacy Electronically, [facility], 155, cm, 10/16/22 12:48:00 EST, Height, 52.25, kg, 04/27/22 14:46:00 EDT, Dry Weight Start Date: 12/22/22 Status: Ordered Ventolin HFA 108 mcg/inh inhalation aerosol with adapter 2 puffs, Inhalation, Every 6 hours, PRN for wheezing, # 8 Gm, 6 Refills, Maintenance, 11/09/23 9:44:00 EST, [facility]erosol, [id number], Partial fill upon patient [...] CT measuring 4.1 cm. 2CT scan 2016 37233; repeat 2028 4colo 2009 nl, repeat 2018 5Problem added by Discern Expert 6colo 2018 7egd 2012 no barretts 8colo 2018 9Status post laparotomy with lysis of adhesions and repair of incarcerated ventral hernia. Surgery performed March 2018. 10Thyroid peroxidase antibody positive Results Radiology Reports * Exam Date Time Procedure Performing Provider Status 11/08/23 2:20 PM MM Digital Mammo Screening Travis Barron ce; Auth (Verified) Notes: (MM Digital Mammo Screening) Reason For Exam: Z12.31 SCREENING RESULT: MM Digital Mammo Screening PROCEDURE: MM Digital Mammo Screening INDICATION: Screening for breast cancer. No known palpable abnormalities. COMPARISON: ADAN dating back to 12/01/2019. TECHNIQUE: Full-field digital CC and MLO 3D tomosynthesis images of both breasts were acquired. Computer-aided detection (CAD) was utilized in the interpretation of this study. DENSITY: The breast tissue contains scattered areas of fibroglandular density. FINDINGS: No suspicious masses, suspicious microcalcifications, or areas of architectural distortion are seen in either breast to suggest malignancy. Stable benign-appearing oval mass again noted in the lower inner right breast. IMPRESSION: No mammographic evidence of malignancy. RECOMMENDATION: Annual mammographic screening BI-RADS: 2 (Benign) Lay letter mailed to patient WSN: [id number] Ordering Physician: Miko Marshall Dictated By: Mckenna Meza MD, I Dictated Date/Time: 11/08/23 4:26 pm Reviewed By: Mckenna Meza MD, I Signed By: Mckenna Meza MD, I Signed Date/Time: 11/08/23 4:26 pm Transcribed By: REECE Clay Miller Date/Time: 11/08/23 4:23 pm Birads: Social History Social History Type [...] Care Member Role: PCP Address: Address: [address] [place] [address]- [place] Name: Zachary Biswas MD Position: [facility] Renal MD Member Role: Lifetime Consulting Physician Address: Address: [address] [facility] [place] [address]- Name: Moises BAH, Sridhar Position: [facility] RN Member Role: Primary Care Nurse Care Team Related Persons Name: MU CONTRERAS Address: [place] [address] Name: SHANELL COBIAN Address: [address] [address]
--- OUTSIDE RECORDS SUMMARY | 2024-07-03 12:16 | XMS_ITS | Continuity of Care Document ---
Author Organization [facility] Eduardo Dawson Durga lt Address [address] [place] [address]- Care Team Providers Care Welt Drawer Name Role Phone Joanna VO, Miko Giullen Primary Care Physician [facility] 08[facility]23 - 09/05/23 [facility] Eduardo Dawson Adult [address] [place] [address]- Allergies, Adverse Reactions, Alerts Substance Reaction Severity [...] Give n 1Result Comment: [facility]: [id number] [facility] 3Result Comment: [06/23/2016] HIGH [...] 1 Refills, Maintenance,05/25/22 15:32:00 EDT, [facility], 75, INHALE 2 PUFFS 4 TIMES A DAY WHEN NEEDED FOR WHEEZING, 155, cm, 04/27/22 14:46:00 EDT, Height, 52.25, kg, 0... Start Date: 05/25/22 Status: Ordered amLODIPine 10 mg oral tablet 10 mg, 1, tablet, By Mouth, Daily, # 90 tablet, Refills 3, Tot. Refills 3, Maintenance, 11/22/22 16:38:00 EST, [facility] fill upon patient request [...] tablet, 6 Refills, Maintenance, 06/29/23 15:09:00 EDT, [facility]/pharmacy #[id number], 155, cm, 06/29/23 14:50:00 EDT, Height, 52.25, kg, 04/27/22 14:46:00 EDT, Dry Weight Start Date: 06/29/23 Status: Ordered budesonide-formoterol 160 mcg-4.5 mcg/inh inhalation aerosol with adapter 2, puffs, Inhalation, 2 times a day, # 30.6 each, Refills 1, Maintenance, 08/29/23 5:44:00 EST, Route to Pharmacy Electronically, [id number], [facility], 155, cm, 08/27/23 8:53:00 EST, Height, 52.25, [...] 11 Refills, Maintenance, 06/29/23 15:10:00 EDT, Nasal [place], [facility]/pharmacy #7111, Partial fill upon patient request if the prescription is for a scheduleII opioid drug., 1 sprays Nares, Both 2 times a day... Start Date: 06/29/23 Status: Ordered hydroCHLOROthiazide 12.5 mg oral capsule 1 capsule, By Mouth, Daily, # 90 capsule, 3 Refills, Maintenance, 12/28/22 7:50:00 EDT, [facility], 155, cm, 10/16/22 12:48:00 EST, Height, 52.25, kg, 04/27/22 14:46:00 EDT, Dry Weight Start Date: 12/28/22 Status: Ordered levothyroxine 0.05 mg oral tablet 1 tablet, By Mouth, Daily, # 90 tablet, 0 Refills, Maintenance, 08/29/23 5:44:00 EST, [facility], 155, cm, 08/27/23 8:53:00 EST, Height, 52.25, kg, 04/27/22 14:46:00 EDT, Dry Weight Start Date: 08/29/23 Status: Ordered LORazepam 0.5 mg oral tablet 1 tablet = 0.5 mg, By Mouth, Daily, PRN for anxiety, # 24 tablet, 1 Refills, Maintenance, 10/18/22 10:48:00 EST, Tablet, [facility]/pharmacy #[id number], 155, cm, 10/16/22 12:48:00 EST, Height, 52.25, kg, 04/27/22 14:46:00 EDT, Dry Weight Start Date: 10/18/22 Status: Ordered losartan 100 mg oral tablet 1 tablet, By Mouth, Daily, # 90 tablet, 3 Refills, Maintenance, 11/22/22 16:38:00 EST, [facility]/pharmacy#7111, 155, cm, 10/16/22 12:48:00 EST, [...] Refills, Maintenance, 08/03/23 9:45:00 EST, EC Capsule, [facility]/pharmacy #[id number], Partial fill [...] capsule, 0 Refills, Maintenance, 08/30/23 16:15:00 EST, [facility]/pharmacy #[id number], Partial fill upon patient request if theprescription is for a schedule II opioid drug., 155... Start Date: 08/30/23 Status: Ordered Spiriva HandiHaler 18 mcg inhalation capsule 1 capsule, Inhalation, Daily, # 90 capsule, 1 Refills, Maintenance, 03/21/23 12:14:00 EDT, [facility], 155, cm, 02/21/23 10:28:00 EDT, Height, 52.25, kg, 04/27/22 14:46:00 EDT,Dry Weight Start Date: 03/21/23 Status: Ordered valACYclovir 500 mg oral tablet 1, tablet, By Mouth, Daily, # 30 tablet, Refills 11, Maintenance, 12/22/22 9:50:00 EDT, Route to Pharmacy Electronically, [facility], 155, cm, 10/16/22 12:48:00 EST, Height, 52.25, [...] CT measuring 4.1 cm. 2CT scan 2015 61478; repeat 2028 4colo 2008 nl, repeat 2018 [...] Consulting Physician Name: Miko Marshall MD Position: [facility] Physician - Primary Care Member Role: PCP Address: Address: [address] [place] [address]- Name: Zachary Biswas MD Position: [facility] Renal MD Member Role: Lifetime Consulting Physician Address: Address: [address] [place] [address] [address] [facility] [place] [place] [address]- [place] Name: Sridhar De Leon RN Position: [facility] RN Member Role: Primary Care Nurse Care Team Related Persons Name: MU CONTRERAS Address: [place] [address] Name: SHANELL COBIAN Address: [address] [address]
--- OUTSIDE RECORDS SUMMARY | 2024-07-03 12:16 | XMS_ITS | Continuity of Care Document ---
Author Organization [facility] Address [address] [place] [address]- Care Team Providers Care Bilingual Call Center Representative Name Role Phone Miko Marshall MD Primary Care Physician [phone] [facility]counter [facility] Date[facility]s): 01/22/24 - 02/21/24 [facility] [address] [place] [address]- [place] Allergies, Adverse Reactions, Alerts Substance Reaction [...] 10 06/24/08 Give n 1Result Comment: [facility]: [id number] 2[facility] 3Result Comment: [06/23/2016] HIGH DOSE 4Admin Note: FLUARIX 5Admin Note: VIS GIVEN 6Admin Note: [facility] info given to patient 7Admin Note: [place] [...] 3 Refills, Maintenance, 01/01/25 15:18:00 EDT, Solution, [facility]/pharmacy #[id number], Partial fill upon patient request if the prescription is for a schedule II opioid drug., 155,... Start Date: 01/01/25 Stop Date: 12/27/25 Status: Ordered albuterol 0.083% inhalation solution 3 mL = 2.5 mg, Inhalation, Every 6 hours, for 90 days, use with nebulizer, # 1,080 mL, 3 Refills, Hard Stop 01/01/25 15:18:00 EDT, 01/07/24 15:18:00 EDT, Solution, [facility]/pharmacy #7111, Partial fill upon patient request if the prescription is for a sche... Start Date: 01/07/24 Stop Date: 01/01/25 Status: Ordered amLODIPine 10 mg oral tablet 1 tablet, By Mouth, Daily, # 90 tablet, 1 Refills, Maintenance, 12/22/23 8:21:00 EDT, [facility]/pharmacy #[id number], 155, cm, 10/12/23 16:44:00 [...] tablet, 6 Refills, Maintenance, 06/29/23 15:09:00 EDT, [facility]/pharmacy #[id number], 155, cm, 06/29/23 14:50:00 EDT, Height, 52.25, kg, 04/27/22 14:46:00 EDT, Dry Weight Start Date: 06/29/23 Status: Ordered budesonide-formoterol 160 mcg-4.5 mcg/inh inhalation aerosol with adapter 2, puffs, Inhalation, 2 times a day, # 30.6 each, Refills 11, Tot. Refills 11, Maintenance, 11/20/23 9:54:00 EST, Route to Pharmacy Electronically, [id number], [facility]/pharmacy #[id number], 155, cm, 10/12/23 16:44:00 [...] 09/28/23 13:34:00 EST, Route to Pharmacy Electronically, [facility]/pharmacy #[id number], Partial fill upon patient request if the prescription is for a schedule II o... Start Date: 09/28/23 Stop Date: 09/22/24 Status: Ordered fluticasone 50 mcg/inh nasal spray 1 sprays, Nares, Both, 2 times a day, # 16 Gm, 11 Refills, Maintenance, 06/29/23 15:10:00 EDT, Nasal [place], [facility]/pharmacy #[id number], Partial fill upon patient request if the prescription is for a scheduleII opioid drug., 1 sprays Nares, Both 2 times a day... Start Date: 06/29/23 Status: Ordered hydroCHLOROthiazide 12.5 mg oral capsule 1 capsule, By Mouth, Daily, # 90 capsule, 3 Refills, Maintenance, 12/28/22 7:50:00 EDT, [facility], 155, cm, 10/16/22 12:48:00 EST, Height, 52.25, kg, 04/27/22 14:46:00 EDT, Dry Weight Start Date: 12/28/22 Status: Ordered levothyroxine 0.05 mg oral tablet 1 tablet, By Mouth, Daily, # 90 tablet, 0 Refills, Maintenance, 11/26/23 9:51:00 EDT, [facility], 155, cm, 10/12/23 16:44:00 EST, Height, 52.25, kg, 04/27/22 14:46:00 EDT, Dry Weight Start Date: 11/26/23 Status: Ordered LORazepam 0.5 mg oral tablet 1 tablet = 0.5 mg, By Mouth, Daily, PRN for anxiety, # 24 tablet, 1 Refills, Maintenance, 12/11/23 9:46:00 EDT, Tablet, [facility]/pharmacy #7111, 155, cm, 10/12/23 16:44:00 EST, Height, 52.25, kg, 04/27/2214:46:00 EDT, Dry Weight Start Date: 12/11/23 Status: Ordered losartan 100 mg oral tablet 1 tablet, By Mouth, Daily, # 90 tablet, 1 Refills, Maintenance, 12/22/23 8:20:00 EDT, [facility]/pharmacy #[id number], 155, cm, 10/12/23 16:44:00 [...] capsule, 4 Refills, Maintenance, 11/20/23 9:54:00 EST, [facility]/pharmacy #[id number], 155, cm, 10/12/23 16:44:00 EST, Height, 52.25, kg, 04/27/22 14:46:00 EDT, Dry Weight Start Date: 11/20/23 Status: Ordered Spiriva HandiHaler 18 mcg inhalation capsule 1 capsule = 18 mcg, Inhalation, Daily, # 90 capsule, 3 Refills, Maintenance, 01/07/24 15:17:00 EDT,[facility]/pharmacy #[id number], Partial fill upon patient request if the prescription is for a schedule II opioid drug., 155, cm, 01/07/24 14:45:00 EDT, Height, 52... Start Date: 01/07/24 Stop Date: 01/01/25 Status: Ordered Symbicort 160mcg/4.5mcg Inhaler 2, puffs, Inhalation, 2 times a day, # 3 each, Refills 3, Tot. Refills 3, Maintenance, 01/07/24 15:17:00 EDT, Aerosol, Route to Pharmacy Electronically, [id number], [facility]/pharmacy #[id number], 155, cm, 01/07/24 14:45:00 EDT, Height,... Start Date: 01/07/24 Stop Date: 01/01/25 Status: Ordered valACYclovir 500 mg oral tablet 1, tablet, By Mouth, Daily, # 30 tablet, Refills 11, Maintenance, 12/22/22 9:50:00 EDT, Route to Pharmacy Electronically, [facility] 7[facility], 155, cm, 10/16/22 12:48:00 EST, Height, 52.25, kg, 04/27/22 14:46:00 EDT, Dry Weight Start Date: 12/22/22 Status: Ordered Ventolin HFA 108 mcg/inh inhalation aerosol with adapter 2 puffs, Inhalation, Every 6 hours, PRN for wheezing, # 8 Gm, 11 Refills, Maintenance, 11/20/23 9:54:00 EST, Aerosol, [facility]/pharmacy #[id number], Partial fill upon patient [...] CT measuring 4.1 cm. 2CT scan 2016 12763; repeat 2028 4colo 2009 nl, repeat 2018 [...] Personnel Name: Maria G Mendez RN Position: [facility] RN Member Role: Primary Care Nurse Name: Barby Frias Position: [facility] Outreach Member Role: Lifetime Consulting Physician Name: Miko Marshall MD Position: [facility] Physician - Primary Care Member Role: PCP Address: Address: [address] [place] [address]- Name: Zachary Biswas MD Position: [facility] Renal MD Member Role: Lifetime Consulting Physician Address: Address: [address] [facility] [place] [address]- Name: Sridhar De Leon RN Position: [facility] RN Member Role: Primary Care Nurse Care Team Related Persons Name: MU CONTRERAS Address: [place] [address] Name: SHANELL COBIAN Address: [address] [address]
--- NOTE | 2024-07-03 12:47 | AM.OFFWIN_ITS ---
Intake Vital Signs 07/03/24 12:48 Height 5 ft 1 in Weight 122 lb BMI 23.0 BP 140/86 H Blood Pressure Location Rt brachial Position Sitting Pulse 87 Pulse Source Pulse Oximeter Temp 97.7 F Temp Source Oral Pulse Oximetry (%) 92 Oxygen Delivery Method Room Air Intake Visit Reasons: EP-lt side neck pain going to arm Allergies latex [LATEX] Allergy (Unknown, Verified 11/20/23 14:50) RASH HPI HPI Comments History of Present Illness Details Patient is a 78-year-old female complaining of left-sided neck pain that radiates into her arm through to her elbow. She describes the pain as a sharp shooting pain. It started this morning when she woke up. She states she is having significant stressors in her life right now as 2 days ago and she went to go wake up her daughter, she found her daughter had overnight. She tells me she has not purchased any new pillows or slept in a different bed but she did not sleep much at all last night. She denies any trauma to the area but does tell me she has been rearranging the bedroom with her kids over the last 2 days. She has not tried taking anything for her pain. [facility] Medical History Thyroid activity decreased Asthma Hypercholesteremia Hypertension COPD (chronic obstructive pulmonary disease) Social History Alcohol intake: never Review of Systems Const All systems reviewed & are unremarkable except as noted in HPI and below Physical Exam Vital Signs: Last Vital Signs Temp 97.7 F 07/03/24 12:48 Pulse 87 07/03/24 12:48 BP 140/86 H 07/03/24 12:48 Pulse Ox 92 07/03/24 12:48 Oxygen Delivery Method Room Air 07/03/24 12:48 BMI result Body Mass Index 23.0 Const General: cooperative, healthy appearing, acute distress (in pain) moderate and tired appearing Nutritional Appearance: average body habitus Orientation/consciousness: patient oriented x3 Limitations: physical limitations (moving slowly with neck and arm pain) HEENT Head: Yes normal to inspection and Yes normocephalic General nose exam: Normal external nose present Face and sinus: Yes normal facial exam Eyes General: appearance normal, both eyes and all related structures Neck Neck: Yes trachea midline and Yes supple Resp Effort & Inspection: normal respiratory effort and able to speak in complete sentences General: Yes no CVA tenderness Back/Spine/Pelvis Back: no CVA tenderness Cervical Spine: cervical muscular tenderness (left sided), pain with cervical ROM, cervical spasm (left sided), No Cervical spine tenderness and cervical ROM abnormal (unable to move head to the left) Thoracic/Lumbar Spine: thoracic and lumbar spine normal to inspection, paraspinal muscle tenderness on the left in the upper thoracic, in the mid thoracic and in the lower thoracic and No thoracic spinal tenderness Neuro General: patient oriented x3 Extrem Other: Straight leg raise test negative on right; Straight leg raise test negative on left; Reflexes normal ankle and knee bilaterally; motor strength normal bilaterally Office Meds prednisone 20 mg tablet Performing Provider: Apolonia Rodriguez PA-C Performing Location: [facility] Administered by: Apolonia Rodriguez PA-C on 07/03/24 13:23 Dose Route Admin Location Dispensed Lot Number Expiration Date [facility] [employer] 20 mg PO 2 tab [id number] 12/15/25 Assessment & Plan Assessment & Plan (1) Cervical radiculopathy: Code(s): M54.12 - Radiculopathy, cervical region Plan: Vital signs are stable and patient is obviously in a lot of pain, it is very difficult for her to move her neck or her left arm. All of the muscles leading from the cervical spine into the shoulder are very tender and stiff. Gave patient 40 mg of prednisone in office, we will send a burst of this for the next 4 days as well as some muscle relaxers and recommended she use naproxen around the clock for the next 5 days. We will get a cervical spine x-ray to rule out injury as she was lifting and moving things over the last few days. If no improvement in her symptoms, she should follow up with her primary care doctor. Plan See above Orders: Orders XR cervical spine min 6V Today M54.12 - Radiculopathy, cervical region AMB Prednisone Adult Dose Today M54.12 - Radiculopathy, cervical region Medications: New prednisone 20 mg PO ONCE 2 tabs 0RF pain M54.12 - Radiculopathy, cervical region prednisone 40 mg (2 x 20 mg) PO QAM 8 tabs 0RF cyclobenzaprine Take 1-2 tablets every 8 hours as needed for muscle spasms 5 mg PO Q8H PRN 20 tabs 0RF Muscle Spasm Discontinued prednisone Discontinued Reason: Doctor's Order 20 mg PO BID 10 tabs 0RF Coding Level of Care Code New Pt Level 4 (95037) Diagnoses Cervical radiculopathy M54.12
[2024-07-03 12:48] VITALS: BP 140/86; PULSE 87; TEMP 36.5; O2SAT 92; BMI 23.0
== END 2024-07-03 13:17 | disposition home or self-care (01) ==
PROVIDERS: PCP Internal Medicine; Visit Provider Physician Assistant
DX: M54.12 Radiculopathy, cervical region (principal)

== ENCOUNTER → 2024-07-03 12:07 | Outpatient (BNVA) | payer MEDICARE, BC, SELFPAY | PROVIDERS: PCP Internal Medicine; Visit Provider Physician Assistant ==

== ENCOUNTER 2024-07-03 13:15 | Outpatient (REF) | payer MEDICARE, BC, SELFPAY ==
--- NOTE | ~2024-07-03 | XR_ITS ---
EXAMINATION: XR CERVICAL SPINE CLINICAL INFORMATION: Radiculopathy, cervical COMPARISON: None available. TECHNIQUE: 4 views of the cervical spine with obliques. FINDINGS: Marked degenerative changes seen from C3 through C7 with marked disc space narrowing, endplate sclerosis and osteophyte formation. There is foraminal narrowing at the C4-C5 level on the right with other foramina widely patent. No prevertebral soft tissue swelling, fractures or subluxations are seen. The lung apices appear normal. XR/XR cervical spine 4V IMPRESSION: Marked degenerative changes from C3 through C7 with right-sided foraminal narrowing at C4-C5. Electronically signed by: Jose Armando Mccurdy MD 07/03/2024 03:59 PM EDT
== END 2024-07-03 13:16 | disposition home or self-care (01) ==
LOC: HO.HMGCX 13:15
PROVIDERS: PCP Internal Medicine; Visit Provider Physician Assistant
DX: M54.12 Radiculopathy, cervical region (principal)
CPT/HCPCS: 72050; 99202

== ENCOUNTER 2024-07-07 11:06 | Outpatient (AMB) | payer MEDICARE, BC, SELFPAY ==
--- OUTSIDE RECORDS SUMMARY | 2024-07-07 11:07 | XMS_ITS | Continuity of Care Document ---
Author Organization [facility] Eduardo Dawson Durga lt Address [address] [place] [address]- Care Team Providers Care Veneer Splicer Name Role Phone Miko Marshall MD Primary Care Physician [phone] [facility]): 06[facility]24 - 07/05/24 [facility] Eduardo Dawson Adult [address] [place] [address]- Attending Physician: Admtr, [id number] Admitting Physician: Admtr, [...] n 1Result Comment: [facility]: [id number] [facility] 3Result Comment: [06/23/2016] HIGH DOSE 4Admin Note: FLUARIX 5Admin Note: VIS GIVEN 6Admin Note: [facility] info given to patient 7Admin Note: [...] Refills, Maintenance, 01/01/25 15:18:00 EDT, [id number], Partial fill upon patient request if the prescription is for a schedule II opioid drug., 155,... Start Date: 01/01/25 Stop Date: 12/27/25 Status: Ordered amLODIPine 10 mg oral tablet 1 tablet, By Mouth, Daily, # 90 tablet, 1 Refills, Maintenance, 12/22/23 8:21:00 EDT, [facility]/pharmacy #[id number], 155, cm, 10/12/23 16:44:00 EST, [...] tablet, 6 Refills, Maintenance, 06/29/23 15:09:00 EDT, [facility]/pharmacy #[id number], 155, cm, 06/29/23 14:50:00 EDT, Height, 52.25, kg, 04/27/22 14:46:00 EDT, Dry Weight Start Date: 06/29/23 Status: Ordered budesonide-formoterol 160 mcg-4.5 mcg/inh inhalation aerosol with adapter 2, puffs, Inhalation, 2 times a day, # 30.6 each, Refills 11, Tot. Refills 11, Maintenance, 03/03/24 11:43:00 EDT, Route to Pharmacy Electronically, [id number], [facility]/pharmacy#[id number], 155, cm, 03/03/24 8:56:00 EDT, Height, [...] 09/28/23 13:34:00 EST, Route to Pharmacy Electronically, [facility]/pharmacy #[id number], Partial fill upon patient request if the prescription is for a schedule II o... Start Date: 09/28/23 Stop Date: 09/22/24 Status: Ordered fluticasone 50 mcg/inh nasal spray 1 sprays, Nares, Both, 2 times a day, # 16 Gm, 11 Refills, Maintenance, 06/29/23 15:10:00 EDT, Nasal [place], [facility]/pharmacy #[id number], Partial fill upon [...] 1 Refills, Maintenance, 12/11/23 9:46:00 EDT, Tablet, [facility]/pharmacy #[id number], 155, cm, 10/12/23 16:44:00 EST, Height, 52.25, kg, 04/27/2214:46:00 EDT, Dry Weight Start Date: 12/11/23 Status: Ordered losartan 100 mg oral tablet 1 tablet, By Mouth, Daily, # 90 tablet, 1 Refills, Maintenance, 12/22/23 8:20:00 EDT, [facility]/pharmacy #[id number], 155, cm, 10/12/23 16:44:00 EST, [...] 90 capsule, 3 Refills, Maintenance, 01/07/24 15:17:00 EDT,[facility]/pharmacy #[id number], Partial fill upon patient request if the prescription is for a schedule II opioid drug., 155, cm, 01/07/24 14:45:00 EDT, Height, 52... Start Date: 01/07/24 Stop Date: 01/01/25 Status: Ordered valACYclovir 500 mg oral tablet 1, tablet, By Mouth, Daily, # 90 tablet, Refills 1, Tot. Refills 1, Maintenance, 03/14/24 11:38:00 EDT, Route to Pharmacy Electronically, [facility]/pharmacy #[id number], 155, cm, 03/03/24 8:56:00 EDT, Height, 52.25, kg, 04/27/22 14:46:00 EDT, Dry Weight Start Date: 03/14/24 Status: Ordered Ventolin HFA 108 mcg/inh inhalation aerosol with adapter 2 puffs, Inhalation, 4 times a day, PRN for wheezing, # 3 each, 3 Refills, Maintenance, 01/07/24 15:20:00 EDT, Aerosol, [facility]/pharmacy #[id number], Partial fill upon [...] 2015; repeat 2028 4colo 2009 nl, repeat 2018 [...] days ago entered on: 01/07/24 Sex Female EKG study * Event Display: [...] Event Display: Radiology Results Scanned Authored Date: XR Spine Views * Event Display: X-Ray Spine Authored Date: MG Breast Views * Event [...] Care Member Role: PCP Address: Address: [address] [place] [address]- [place] Name: Zachary Biswas MD Position: [facility] Renal MD Member Role: Lifetime Consulting Physician Address: Address: [address] [place] [address] [address] [facility] [place] [place] [address]- [place] Name: Sridhar De Leon RN Position: [facility] RN Member Role: Primary Care Nurse Care Team Related Persons Name: MU CONTRERAS Address: [place] [address] Name: SHANELL COBIAN Address: [address] [address]
--- OUTSIDE RECORDS SUMMARY | 2024-07-07 11:08 | XMS_ITS | Continuity of Care Document ---
Author Organization [facility] Eduardo Dawson Durga lt Address [address] [place] [address]- Care Team Providers Care Assisted Living Administrator Name Role Phone Miko Marshall MD Primary Care Physician [phone] [facility]): 06[facility]03/24 - 07/03/24 [facility] [place] Adult [address] [place] [address]- Allergies, Adverse Reactions, Alerts Substance Reaction Severity [...] (oldterm) 10 06/24/08 Give n 1Result Comment: [facility]: [id number] 2[facility] 3Result Comment: [06/23/2016] HIGH DOSE 4Admin Note: FLUARIX 5Admin Note: VIS GIVEN 6Admin Note: [facility] info given to patient 7Admin Note: [facility] [...] 3 Refills, Maintenance, 01/01/25 15:18:00 EDT, Solution, [facility]/pharmacy #[id number], Partial fill upon patient request if the prescription is for a schedule II opioid drug., 155,... Start Date: 01/01/25 Stop Date: 12/27/25 Status: Ordered amLODIPine 10 mg oral tablet 1 tablet, By Mouth, Daily, # 90 tablet, 1 Refills, Maintenance, 12/22/23 8:21:00 EDT, [facility]/pharmacy #[id number], 155, cm, 10/12/23 16:44:00 EST, Height, [...] tablet, 6 Refills, Maintenance, 06/29/23 15:09:00 EDT, [facility]/pharmacy #[id number], 155, cm, 06/29/23 14:50:00 EDT, Height, 52.25, kg, 04/27/22 14:46:00 EDT, Dry Weight Start Date: 06/29/23 Status: Ordered budesonide-formoterol 160 mcg-4.5 mcg/inh inhalation aerosol with adapter 2, puffs, Inhalation, 2 times a day, # 30.6 each, Refills 11, Tot. Refills 11, Maintenance, 03/03/24 11:43:00 EDT, Route to Pharmacy Electronically, [id number], [facility]/pharmacy#[id number], 155, cm, 03/03/24 8:56:00 EDT, Height, 52.25... [...] 09/28/23 13:34:00 EST, Route to Pharmacy Electronically, [facility]/pharmacy #[id number], Partial fill upon patient request if the prescription is for a schedule II o... Start Date: 09/28/23 Stop Date: 09/22/24 Status: Ordered fluticasone 50 mcg/inh nasal spray 1 sprays, Nares, Both, 2 times a day, # 16 Gm, 11 Refills, Maintenance, 06/29/23 15:10:00 EDT, Nasal [place], [facility]/pharmacy #[id number], Partial fill upon patient request [...] 1 Refills, Maintenance, 12/11/23 9:46:00 EDT, Tablet, [facility]/pharmacy #[id number], 155, cm, 10/12/23 16:44:00 EST, Height, 52.25, kg, 04/27/2214:46:00 EDT, Dry Weight Start Date: 12/11/23 Status: Ordered losartan 100 mg oral tablet 1 tablet, By Mouth, Daily, # 90 tablet, 1 Refills, Maintenance, 12/22/23 8:20:00 EDT, [facility]/pharmacy #[id number], 155, cm, 10/12/23 16:44:00 EST, Height, [...] capsule, 3 Refills, Maintenance, 01/07/24 15:17:00 [id number] fill upon patient request if the prescription is for a schedule II opioid drug., 155, cm, 01/07/24 14:45:00 EDT, Height, 52... Start Date: 01/07/24 Stop Date: 01/01/25 Status: Ordered valACYclovir 500 mg oral tablet 1, tablet, By Mouth, Daily, # 90 tablet, Refills 1, Tot. Refills 1, Maintenance, 03/14/24 11:38:00 EDT, [id number], cm, 03/03/24 8:56:00 EDT, Height, 52.25, kg, 04/27/22 14:46:00 EDT, Dry Weight Start Date: 03/14/24 Status: Ordered Ventolin HFA 108 mcg/inh inhalation aerosol with adapter 2 puffs, Inhalation, 4 times a day, PRN for wheezing, # 3 each, 3 Refills, Maintenance, 01/07/24 15:20:00 EDT, Aerosol, [facility]/pharmacy #[id number], Partial fill upon patient request [...] CT measuring 4.1 cm. 2CT scan 2016 [address]; repeat 2028 4colo 2009 nl, repeat 2019 [...] Personnel Name: Maria G Mendez RN Position: [facility] RN Member Role: Primary Care Nurse Name: Barby Frias Position: [facility] Outreach Member Role: Lifetime Consulting Physician Name: Miko Marshall MD Position: [facility] Physician - Primary Care Member Role: PCP Address: Address: [address] [place] [address]- Name: Zachary Biswas MD Position: [facility] Renal MD Member Role: Lifetime Consulting Physician Address: Address: [address] [place] [address] [address] [facility] [place] [address]- Name: Moises BAH, Sridhar Position: [facility] RN Member Role: Primary Care Nurse Care Team Related Persons Name: MU CONTRERAS Address: [place] [address] Name: SHANELL COBIAN Address: [address] [address]
--- OUTSIDE RECORDS SUMMARY | 2024-07-07 11:12 | XMS_ITS | Continuity of Care Document ---
Author Organization [facility] Samir Durga lt Address [address] [place] [address]- Care Team Providers Care Drop Hammer Setter Up Name Role Phone Miko Marshall MD Primary Care Physician [facility]): 01/19/23 - 02/18/23 [facility] Adult [address] [place] [address]- Allergies, Adverse Reactions, Alerts Substance Reaction Severity [...] 4Admin Note: VIS GIVEN 5Admin Note: [facility] info given to patient [...] 1 Refills, Maintenance,05/25/22 15:32:00 EDT, [id number], 75, INHALE 2 PUFFS 4 TIMES A [...] 45 tablet, 3 Refills, 04/10/22 13:41:00 EDT, [facility]/pharmacy #[id number], 155, cm, 04/10/22 13:29:00 EDT, Height Start Date: 04/10/22 Status: Ordered budesonide-formoterol 160 mcg-4.5 mcg/inh inhalation aerosol with adapter 2, puffs, Inhalation, 2 times a day, # 30.6 each, Refills 1, Tot. Refills 1, 07/17/22 13:30:00 EDT,Route to Pharmacy Electronically, [id number], [facility]/pharmacy #[id number], 155, cm, 06/12/22 14:03:00 EDT, [...] Refills, Maintenance, 12/28/22 7:50:00 EDT, [facility], 155, cm, 10/16/22 12:48:00 EST, Height, 52.25, kg, 04/27/22 14:46:00 EDT, Dry Weight Start Date: 12/28/22 Status: Ordered levothyroxine 0.05 mg oral tablet 1 tablet, By Mouth, Daily, # 90 tablet, 1 Refills, Maintenance, 09/06/22 15:47:00 EST, [facility] STORE 46788, 155, cm, 06/12/22 14:03:00 EDT, Height, 52.25, kg, 04/27/22 14:46:00 EDT, Dry Weight Start Date: 09/06/22 Status: Ordered LORazepam 0.5 mg oral tablet 1 tablet = 0.5 mg, By Mouth, Daily, PRN for anxiety, # 24 tablet, 1 Refills, Maintenance, 10/18/22 10:48:00 EST, Tablet, [facility]/pharmacy #[id number], 155, cm, 10/16/22 12:48:00 EST, Height, 52.25, kg, 04/27/22 14:46:00 EDT, Dry Weight Start Date: 10/18/22 Status: Ordered losartan 100 mg oral tablet 1 tablet, By Mouth, Daily, # 90 tablet, 3 Refills, Maintenance, 11/22/22 16:38:00 EST, [facility]/pharmacy#[id number], 155, cm, 10/16/22 12:48:00 EST, Height, [...] 12/22/22 9:50:00 EDT, Route to Pharmacy Electronically, [facility] 612[facility], 155, cm, 10/16/22 12:48:00 EST, Height, 52.25, [...] CT measuring 4.1 cm. 2CT scan 2016 [address]; repeat 2028 4colo 2008 nl, repeat 2018 [...] Personnel Name: Maria G Mendez RN Position: [facility] RN Member Role: Primary Care Nurse Name: Barby Frias Position: [facility] Outreach Member Role: Lifetime Consulting Physician Name: Miko Marshall MD Position: [facility] Physician - Primary Care Member Role: PCP Address: Address: [address] [place] [address]- [place] Name: Zachary Biswas MD Position: [facility] Renal MD Member Role: Lifetime Consulting Physician Address: Address: [address] [facility] [place] [address]- Name: Sridhar De Leon RN Position: [facility] RN Member Role: Primary Care Nurse Care Team Related Persons Name: MU CONTRERAS Address: [place] [address] Name: SHANELL COBIAN Address: home [address] [place] [address]
--- NOTE | 2024-07-07 11:59 | MHC.OFFWIV ---
Intake Vital Signs 07/07/24 12:06 Height 5 ft 1 in Weight 124 lb 2 oz BMI 23.5 BP 140/84 H Blood Pressure Location Lt brachial Position Sitting Pulse 82 Pulse Source Pulse Oximeter Temp 97.9 F Temp Source Oral Pulse Oximetry (%) 98 Oxygen Delivery Method Room Air Intake Visit Reasons: EP-?left side broken ribs [phone] Intake Note: Patient here for back pain she states she fell down the stairs and it hurts to breathe now. Patient Tobacco Use Status: Former Tobacco user Allergies latex [LATEX] Allergy (Unknown, Verified 07/07/24 12:00) RASH Do you need a note to return to daycare/school/sports/work: No HPI EP-?left side broken ribs [phone] HPI Details This note is constructed using voice recognition software. While every effort has been made to ensure accuracy, licsw errors may have been included. The patient is a 78 year old female who presents to the clinic today with left-sided rib pain since a fall that occurred 6 days ago. She notes that she had been seen in the walk-in clinic that day for neck pain, and went home after that. When she was home she had difficulty looking down the stairs due to the neck pain, so she did not properly place her feet, falling down through. When she landed she struck her left side. She has been treating the pain with the medication that she was prescribed for her neck, which seems to have helped some. She notes that she is an asthmatic, and takes regular inhalers, and today when she went to take her inhalers she noticed that the pain was a little bit worse and she was slightly short of breath when taking the inhalers. She denies fever and chills. She denies dyspnea at rest. REPLACED BY [facility] Medical History Thyroid activity decreased Asthma Hypercholesteremia Hypertension COPD (chronic obstructive pulmonary disease) Social History Alcohol intake: never Patient Tobacco Use Status: Former Tobacco user Review of Systems Const All systems reviewed & are unremarkable except as noted in HPI and below Physical Exam Vital Signs: Last Vital Signs Temp 97.9 F 07/07/24 12:06 Pulse 82 07/07/24 12:06 BP 140/84 H 07/07/24 12:06 Pulse Ox 98 07/07/24 12:06 Oxygen Delivery Method Room Air 07/07/24 12:06 BMI result Body Mass Index 23.5 Const General: cooperative, healthy appearing, comfortable, no acute distress and well developed Orientation/consciousness: patient oriented x3 Limitations: no limitations Neck Neck: Yes normal visual inspection and Yes full ROM Chest Other: No palpable fracture along chest wall, however does have ecchymosis to the site where she struck herself on the left chest wall, which is tender to palpation. Resp Effort & Inspection: normal respiratory effort and able to speak in complete sentences Auscultation: clear to auscultation bilaterally Cardio Rate: regular rate Rhythm: regular rhythm Heart sounds: normal S1 and S2 Skin General skin exam: no rashes or lesions noted Neuro General: patient oriented x3 Extrem General: Yes normal to inspection Assessment & Plan Assessment & Plan (1) Rib pain: Code(s): R07.81 - Pleurodynia Plan: X-ray to rule out fracture as well as pneumonia. Advised deep breathing exercises for prevention of pneumonia. Advised NSAIDs, topical lidocaine for symptomatic management. Advised follow up with worsening or failure to resolve. We will call patient with x-ray results, as she is going to run errands before returning for her x-ray. Plan See above for full details and plan. Orders: Orders XR ribs LT min 3V w CXR1V Today R07.81 - Pleurodynia Coding Level of Care Code Est Pt Level 4 (00494) Diagnoses Rib pain R07.81
[2024-07-07 12:06] VITALS: BP 140/84; PULSE 82; TEMP 36.6; O2SAT 98; BMI 23.5
== END 2024-07-07 12:38 | disposition home or self-care (01) ==
PROVIDERS: PCP Internal Medicine; Visit Provider Registered Nurse
DX: R07.81 Pleurodynia (principal)

== ENCOUNTER → 2024-07-07 11:06 | Outpatient (BNVA) | payer MEDICARE, BC, SELFPAY | PROVIDERS: PCP Internal Medicine | DX: R07.81 Pleurodynia (principal) | CPT/HCPCS: 71101; 99212 ==

== ENCOUNTER 2024-07-07 12:52 | Outpatient (REF) | payer MEDICARE, BC, SELFPAY ==
--- NOTE | ~2024-07-07 | XR_ITS ---
EXAMINATION: XR RIBS, LEFT CLINICAL INFORMATION: Pleurodynia. COMPARISON: CTA chest dated 01/16/2023. TECHNIQUE: PA view the chest as well as 3 views of the left ribs. FINDINGS: No airspace consolidation. No pleural effusion or pneumothorax. Stable cardiomediastinal silhouette. No displaced fracture. No concerning lytic or blastic osseous lesion. No abnormal soft tissue calcification. XR/XR ribs LT min 3V w CXR1V IMPRESSION: No displaced fracture. Electronically signed by: Canelo Garner MD 07/07/2024 08:11 PM EDT
== END 2024-07-07 12:53 | disposition home or self-care (01) ==
LOC: HO.HMGCX 12:52
PROVIDERS: PCP Internal Medicine; Visit Provider Registered Nurse
DX: R07.81 Pleurodynia (principal)
CPT/HCPCS: 71101

== ENCOUNTER 2024-07-09 06:38 | Observation (INO) | payer MEDICARE, BC, SELFPAY ==
--- NOTE | ~2024-07-09 | CT_ITS ---
EXAMINATION: CT CERVICAL SPINE WITHOUT CONTRAST CLINICAL INFORMATION: Fall. Neck trauma COMPARISON: 07/03/2024 TECHNIQUE: Thin section axial imaging with sagittal and coronal reformats. This CT examination was performed using dose optimization techniques as appropriate, variously including the following: *Automated exposure control *Adjustment of mA and/or kV according to patient size (this includes techniques or standardized protocols for targeted exams where dose is matched to indication/reason for exam; i.e. extremities or head) *Use of iterative reconstruction technique DLP: 247 mGy-cm FINDINGS: Advanced degenerative changes observed, C4-C6. No fracture or destructive process. No significant encroachment on the spinal canal. Prevertebral soft tissues are normal. Vascular calcifications are seen at the level of the thoracic inlet. There is paravertebral soft tissue thickening right upper lung. This may reflect paravertebral fat. Please refer to the CT chest. CT/CT cervical spine wo IV con IMPRESSION: Multilevel degenerative change. No fracture. Fleischner guidelines were followed. Electronically signed by: Delfino Prince MD 07/09/2024 01:50 PM EDT
--- NOTE | ~2024-07-09 | CT_ITS ---
EXAMINATION: CT LUMBAR SPINE WITHOUT CONTRAST CLINICAL INFORMATION: Status post fall. Left rib pain. Low back pain. COMPARISON: None available. TECHNIQUE: Contiguous axial images from T12 to S1 using 2 mm collimation with bone and soft tissue algorithm. Sagittal and coronal reformatted images acquired. This CT examination was performed using dose optimization techniques as appropriate, variously including the following: *Automated exposure control *Adjustment of mA and/or kV according to patient size (this includes techniques or standardized protocols for targeted exams where dose is matched to indication/reason for exam; i.e. extremities or head) *Use of iterative reconstruction technique DLP; 247 mGy-cm FINDINGS: Patient's motion artifact. No acute cortical disruption within the vertebral bodies or the posterior elements, and lumbar spine. No prevertebral compartment hematoma. Multilevel marginal osteophyte formation, endplate sclerosis, decreased disc height and subchondral cyst formation, more conspicuous at L1-2, T12-L1 and to a lesser extent L4-5. Grade 1 anterolisthesis L4-5, likely degenerative. Grade 1 retrolisthesis, L1-2, likely degenerative. Multilevel facet joint hypertrophy, L4-5 and L5-S1 levels. Levoconvex rotoscoliosis apex at L3-4. Dextroconvex rotoscoliosis apex at L1-2. The last rib-bearing vertebra labeled T12. Well marginated blastic lesion, right hemisacrum, S1 level, probably benign. Osteopenia versus osteoporosis. Mixed plaques throughout the abdominal aorta wall without aneurysm. Dystrophic calcification centered pancreatic region. Extrarenal pelvises, bilaterally. Vascular desiccation, splenic artery and iliac arteries. Degenerative changes, sacroiliac joints. CT/CT lumbar spine wo IV con IMPRESSION: Multilevel thoracolumbar spondylosis without acute fracture or trauma-related listhesis. Grade 1 anterolisthesis L4-5 resulting in central spinal canal stenosis. Grade 1 retrolisthesis L1-2.. Dystrophic calcifications, pancreatic. Electronically signed by: Erlin Barber MD 07/09/2024 10:52 AM EDT
--- NOTE | ~2024-07-09 | CT_ITS ---
EXAMINATION: CT CHEST WITHOUT CONTRAST CLINICAL INFORMATION: L rib pain s/p trauma COMPARISON: CTA chest 01/16/2023 TECHNIQUE: Multidetector volumetric CT imaging of the chest was done. Axial MIP volume rendering provided. Sagittal and coronal reformatted images were obtained. This CT examination was performed using dose optimization techniques as appropriate, variously including the following: *Automated exposure control *Adjustment of mA and/or kV according to patient size (this includes techniques or standardized protocols for targeted exams where dose is matched to indication/reason for exam; i.e. extremities or head) *Use of iterative reconstruction technique DLP: 247 mGy-cm FINDINGS: LUNGS: Central airways are patent. Diffuse centrilobular emphysema. Azygous fissure incidentally noted. Mild biapical pleural-parenchymal scarring. Bibasilar linear atelectasis/scarring with right lower lobe traction bronchiectasis, as before. Stable right middle lobe 0.4 cm pulmonary nodule (series #9 axial image 295). There is a right upper lobe pulmonary 0.4 cm nodule which appears new from prior (series #9 axial image 164). MEDIASTINUM: Normal size heart without pericardial effusion. Aortic calcifications. Aneurysmal ascending thoracic aorta measuring up to 4.3 cm maximum AP dimension, compared to 4.1 cm by my measurement previously. Moderate to severe arterial calcifications. No mediastinal or hilar lymphadenopathy. Normal thyroid. CORONARY ARTERY CALCIFICATION: Present. AXILLA: No lymphadenopathy. UPPER ABDOMEN: Small hiatal hernia. Anterior midline abdominal anastomotic sutures partially visualized. Significant splenic arterial calcifications noted. OSSEOUS STRUCTURES: Nondisplaced posterior left 10th rib fracture, new from prior. Diffuse osteopenia. Multilevel thoracic degenerative disc disease. CT/CT chest wo IV con IMPRESSION: 1. Nondisplaced posterior left 10th rib fracture, new from prior. 2. There is a right upper lobe 0.4 cm pulmonary nodule which appears new from prior. Per the 2017 revised Fleischner Society guidelines, no follow-up needed if patient is low-risk (and has no known or suspected primary neoplasm). Non-contrast chest CT can be considered in 12 months if patient is high-risk. 3. Aneurysmal ascending thoracic aorta measuring up to 4.3 cm maximum AP dimension, compared to 4.1 cm by my measurement previously. Fleischner guidelines were followed. Electronically signed by: Crystal Sena DO 07/09/2024 02:35 PM EDT RP
[2024-07-09 06:46] VITALS: BP 161/94; PULSE 73; RESP 14; TEMP 36.4; O2SAT 97; BMI 25.7
[2024-07-09] MEDS: Morphine Sulfate 2 MG/ML CARTRIDGE IVPUSH ×2 (07:15→14:56)
--- NOTE | 2024-07-09 07:22 | ED_ITS ---
HPI - Back Pain/Injury General Chief Complaint: Back Pain/Injury Stated Complaint: lower left back pain Time Seen by Provider: 07/09/24 07:02 Source: patient and old records reviewed Mode of arrival: ambulatory Limitations: no limitations History of Present Illness ED Provider: BRYN PARKS Narrative: 78 yo female with PMH of COPD not home O2, HTN, HLD, hypothyroidism not on thinners here with c/o trip and fall last Sunday no headstrike or LOC not on thinners - here with neck pain and L rib pain hurts to move and cough. She has no fever or sputum production. Her low back hurts as well. She went to urgent care and had normal rib xray and cervical spine xray. She is here as she cannot take the pain they put her on oral steroids and pain medications. MD elicited complaint: back injury and fall Onset (ago): week(s) (1) Timing: constant Severity: severe Similar Symptoms Previously: No Quality: sharp Location: lumbar spine (chest) Radiation: none Exacerbating factors: movement, walking and coughing/sneezing Relieving factors: none Context: fall Associated symptoms: denies other symptoms Treatments prior to arrival: other (lidocaine patch, prednisone) Work related injury: No Related Data Home Medications ?Medication ?Instructions ?Recorded ?Confirmed amlodipine 10 mg tablet 10 mg PO DAILY 01/16/23 01/16/23 atorvastatin 10 mg tablet 10 mg PO BEDTIME 01/16/23 01/16/23 famotidine 20 mg tablet 20 mg PO DAILY 01/16/23 01/16/23 levothyroxine 50 mcg capsule 50 mcg PO DAILY 01/16/23 01/16/23 lorazepam 0.5 mg tablet 0.5 mg PO DAILY PRN 01/16/23 01/16/23 losartan 100 mg tablet 100 mg PO DAILY 01/16/23 01/16/23 magnesium 250 mg tablet 500 mg PO DAILY 01/16/23 01/16/23 valacyclovir 500 mg tablet 500 mg PO DAILY PRN 01/16/23 01/16/23 zinc acetate 50 mg (zinc) capsule 50 mg PO DAILY 01/16/23 01/16/23 hydrochlorothiazide 12.5 mg capsule 12.5 mg PO DAILY 11/20/23 budesonide-formoterol HFA 160 2 puff inhalation BID 07/09/24 mcg-4.5 mcg/actuation aerosol inhaler tiotropium bromide 18 mcg capsule 1 cap inhalation DAILY 07/09/24 with inhalation device Previous Rx's ?Medication ?Instructions ?Recorded fluticasone propionate 50 1 spray intranasal DAILY #16 grams 10/10/22 mcg/actuation nasal spray,suspension (Flonase Allergy Relief) apixaban 5 mg (74 tabs) tablets in 5 mg PO BID #74 ea 01/16/23 a dose pack (Damage Hounds DVT-PE Treat 30D Start) amoxicillin 875 mg-potassium 1 tab PO Q12H #14 tabs 11/20/23 clavulanate 125 mg tablet cyclobenzaprine 5 mg tablet 5 mg PO Q8H PRN Muscle Spasm #20 07/03/24 tabs prednisone 20 mg tablet 40 mg (2 x 20 mg) PO QAM #8 tabs 07/03/24 Allergies Allergy/AdvReac Type Severity Reaction Status Date / Time latex [LATEX] Allergy Unknown RASH Verified 07/09/24 06:48 Review of Systems 2 Review of Systems: Constitutional : No Weight loss, No Fever, No Chills, ENT/Mouth : No Hearing loss, No Ear Pain, No Nasal Congestion, No Sinus Pain, No Hoarseness, No sore throat, No Rhinorrhea, No Swallowing Difficulty Cardiovascular : No Chest Pain, No SOB, pos rib pain Respiratory : No Cough, No Dyspnea Gastrointestinal : No Nausea, No Vomiting, No Diarrhea, No abdominal Pain, No Hematochezia, No Melena Genitourinary : No Dysuria, No Urinary Frequency, No Hematuria, No Urinary Incontinence, Musculoskeletal : positive back pain Skin : No Skin Lesions, No rash Neuro : No Weakness, No Numbness, No Paresthesias, no loss of bowel or bladder incontinence, no saddle anesthesia all other systems reviewed and are negative [facility] Past Medical History Attestation statement: The following information was validated with the patient. Source: old records reviewed Medical History Thyroid activity decreased Asthma Hypercholesteremia Hypertension COPD (chronic obstructive pulmonary disease) Social History Social History Alcohol intake: current Alcohol intake frequency: 0-2 drinks per day Patient Tobacco Use Status: Former Tobacco user Smoked in Last 30 Days: No Use of substances other than those prescribed or required for medical reasons: No Advance Directives: No Advance Directives Information Provided: Yes Do you have a plan to hurt others: No Plan Physical Exam 2 Vital Signs: Vital Signs: Last Vital Signs Temp 97.6 F 07/09/24 13:03 Pulse 91 07/09/24 13:03 Resp 14 07/09/24 13:03 BP 121/76 07/09/24 13:03 Pulse Ox 97 07/09/24 13:03 O2 Del Method Room Air 07/09/24 13:03 BMI result Body Mass Index 25.7 Appearance: Alert. Oriented X3. in pain splinting intermittenly yelling out, mild acute distress. Eyes: Pupils equal, round and reactive to light. ENT: Pharynx normal. Neck: lower cervical midline ttp no step offs CVS: Normal heart rate and rhythm. Pulses normal. Chest: L posterior rib ttp contusion noted Respiratory: No respiratory distress. Breath sounds diminished R lower lobe due to splinting Abdomen: Soft and nontender. Back: lower lumbar ttp no step offs Skin: Skin warm and dry. Normal skin color. Normal skin turgor. Extremities: No lower extremity edema. No calf ttp Neuro: Oriented X 3. No motor deficit. No sensory deficit. Course Course Course Narrative: neb for coughing fit and unable to cough deeply to expectorate she did tolerate it well Medications Administered Discontinued Medications Generic Name Dose Route Start Last Admin Trade Name Tosin PRN Reason Stop Dose Admin Albuterol Sulfate 5 mg/ 0 mg 07/09/24 08:11 07/09/24 08:14 Albuterol/Ipratropium 3 ml INHALE 07/09/24 08:12 1 each ONCE ONE Administration Acetaminophen 1,000 mg in 100 mls @ 400 mls/hr 07/09/24 14:45 07/09/24 14:58 Ofirmev IV 07/09/24 14:59 400 mls/hr ONCE ONE Administration Lidocaine 1 patch 07/09/24 14:45 07/09/24 14:56 Lidocaine 4 % Patch Adh..Patch TRANSDERMA 07/09/24 14:46 1 patch ONCE ONE Administration Protocol Morphine Sulfate 2 mg 07/09/24 07:08 07/09/24 07:15 Morphine Sulfate 2 Mg/Ml Cartridge IVPUSH 07/09/24 07:09 2 mg ONCE ONE Administration Protocol Morphine Sulfate 2 mg 07/09/24 14:45 07/09/24 14:56 Morphine Sulfate 2 Mg/Ml Cartridge IVPUSH 07/09/24 14:46 2 mg ONCE ONE Administration Protocol Medical Decision Making Medical Decision Making [facility] Narrative: 78 yo female with PMH of COPD not home O2, HTN, HLD, hypothyroidism not on thinners here with c/o trip and fall a week ago but symptoms with persistent pain given age and degree of pain with negative xrays at urgent care I am going to escalate to CT chest for rib fracture/hemothorax/effusion, CT lumbar frx for compression fracture, CT cervical spine for fracture Differential Diagnosis Differential Diagnoses: The differential diagnosis associated with the presentation includes compression fracture, strain, broken rib, contusion Admission/Observation Consideration of admission/observation: Escalation of care including admission/observation considered patient with repeat morphine and IV tylenol for pain Consult Healthcare Provider Management of the patient was discussed with: Hospitalist (will admit) Lab Data [facility] Lab Attestation statement: I reviewed the patient's lab results. 07/09/24 15:13 07/09/24 15:13 Labs: Lab Results 07/09/24 Range/Units 15:13 WBC 11.5 H (4.8-10.8) X10*3/uL RBC 4.77 (4.20-5.50) X10*6/uL Hgb 15.2 (12.0-16.0) g/dl Hct 44.1 (37.0-47.0) % MCV 92.5 (80.0-98.0) fL MCH 31.9 (27.0-33.0) pg MCHC 34.5 (31.0-35.0) g/dl RDW 14.4 (11.0-16.0) % Plt Count 295 D (160-400) X10*3/uL MPV 8.9 L (9.4-12.3) fL Immature Gran % (Auto) 0.7 H (0.0-0.4) % Neut % (Auto) 61.3 (45-73) % Lymph % (Auto) 28.7 (20-40) % [place] % (Auto) 8.2 (2-11) % Eos % (Auto) 0.8 (0-4) % Baso % (Auto) 0.3 (0-2) % Lymph # (Auto) 3.3 (1.2-4.9) X10*3/uL [place] # (Auto) 1.0 (0.1-1.2) X10*3/uL Eos # (Auto) 0.1 (0.0-0.4) X10*3/uL Baso # (Auto) 0.0 (0.0-0.2) X10*3/uL Abs Immat Gran (auto) 0.08 H (0.00-0.03) X10*3/uL Absolute Neuts (auto) 7.1 (2.0-8.3) x10*3/uL Absolute Nucleated RBC 0.000 (0.0-0.012) X10*3/uL Nucleated RBC % (auto) 0.0 (0.0-0.2) /100WBC Sodium 141 (135-145) mmol/L Potassium 3.7 (3.3-5.1) mmol/L Chloride 97 (96-108) mmol/L Carbon Dioxide 36 H (22-29) mmol/L Anion Gap 12 (12-20) BUN 19 H (9-16) mg/dL Creatinine 0.99 (0.5-1.4) mg/dL Estim Creat Clear Calc 43.6 Estimated GFR 54 Random Glucose 125 H (60-115) mg/dL Calcium 10.4 H D (8.4-10.2) mg/dL Independent Interpretation I performed an independent interpretation of an: CT Scan (10th rib fracture) Radiology Impression Discussion of test interpretation with radiology: I have reviewed the radiologist's reading. External Record Review External record reviewed: Outpatient record Critical Care Time Critical Care Time Critical Care Time: Yes Total Critical Care Time: 35 Attestation: repeat IV morphine with improvement in pain I attest to this time spent taking care of the patient Discharge Plan Discharge Clinical Impression: Closed rib fracture Qualifiers: Encounter type: initial encounter Rib fracture type: single rib Laterality: l eft Qualified Code(s): S22.32XA - Fracture of one rib, left side, initial encounter for closed fracture Patient Disposition: Admitted As Inpatient Print Language: Portuguese
[2024-07-09 08:11] VITALS: PULSE 73; RESP 14; O2SAT 96
[2024-07-09] MEDS: Albuterol Sulfate 5 MG, Albuterol/Iprat 2.5/0.5MG 3 ML 3 ML INHALE (08:14)
[2024-07-09 13:03] VITALS: BP 121/76; PULSE 91; RESP 14; TEMP 36.4; O2SAT 97
[2024-07-09] MEDS: Lidocaine 4 % Patch ADH..PATCH 1 PATCH TRANSDERMA (14:56)
[2024-07-09] MEDS: Acetaminophen 1,000 MG/100 ML PIGGYBACK 400 MG IV (14:58)
[2024-07-09 15:18] LABS: MANUAL DIFF FLAG NO
[2024-07-09 15:20] LABS: Basophils Percent Auto 0.3 % (0-2); Eosinophils Absolute Auto 0.1 X10*3/uL (0.0-0.4); Eosinophils Percent Auto 0.8 % (0-4); Hematocrit 44.1 % (37.0-47.0); Hemoglobin 15.2 g/dl (12.0-16.0); Imm Gran Abs Auto 0.08 X10*3/uL (0.00-0.03); Imm Gran Pct Auto 0.7 % (0.0-0.4); Lymphocytes Absolute Auto 3.3 X10*3/uL (1.2-4.9); Lymphocytes Percent Auto 28.7 % (20-40); Mean Corpuscular HGB Conc 34.5 g/dl (31.0-35.0); Mean Corpuscular Hemoglobin 31.9 pg (27.0-33.0); Mean Corpuscular Volume 92.5 fL (80.0-98.0); Mean Platelet Volume 8.9 fL (9.4-12.3); Monocytes Percent Auto 8.2 % (2-11); Neutrophils Absolute Auto 7.1 x10*3/uL (2.0-8.3); Neutrophils Percent Auto 61.3 % (45-73); Platelet Count 295 X10*3/uL (160-400); Red Blood Count 4.77 X10*6/uL (4.20-5.50); Red Cell Distribution Width 14.4 % (11.0-16.0); White Blood Count 11.5 X10*3/uL (4.8-10.8)
[2024-07-09 15:34] LABS: Anion Gap 12 (12-20); Blood Urea Nitrogen 19 mg/dL (9-16); Calcium 10.4 mg/dL (8.4-10.2); Carbon Dioxide 36 mmol/L (22-29); Chloride 97 mmol/L (96-108); Creatinine Clr Calc Pharmacy 43.6; Estimated Glomerular Filt Rate 54; Glucose Random 125 mg/dL (60-115); Potassium 3.7 mmol/L (3.3-5.1); Sodium 141 mmol/L (135-145)
[2024-07-09] MEDS: Ketorolac Tromethamine 15 MG/ML VIAL IVPUSH (16:06)
--- NOTE | 2024-07-09 16:17 | PHA.MEDREC ---
Addendum entered by Renetta Lino RP 07/09/24 17:18: Reviewed by [facility] Original Note: Pharmacy Consult ? Medication Reconciliation Pharmacy has completed the medication reconciliation. Confirmed medictions with patient and list patient brought in by home. Patient list a little bit different. It states she takes Atorvastatin 10mg tabs but takes 1/2 tab daily and when I asked about this the patient states shes been doing it like this all along . She states she is not much into taking medicine due to family medical history. She confirmed she stopped taking the Cyclobenziprine 5mg tabs about 2-3 days ago talya to her prior injury for needing it was no longer giving her pain. She confirmed she is still has and is using Lorazepam 0.5mg tabs only when needed for anxiety. She also states she has Valcyclovir 500mg tabs at home as needed for Flare ups. She stated to me she is taking her Famotidine 20mg tab BID and takes it at least 4 hours after she takes her Levothyroxine 50mcg tab. She confirmed she never took the Eliquid Regimen previously on her list but states her doctor told her to start taking Aspirin 81mg tabs once daily and shes been doing that. She confirmed she took her morning medications this morning at 0430.
--- NOTE | 2024-07-09 17:19 | P.HPHOSP_ITS ---
History of Present Illness Date of Service: 07/09/24 Chief Complaint: Left chest pain 78 yo female with PMH of COPD not home O2, HTN, HLD, hypothyroidism not on thinners here with c/o trip and fall last Sunday no headstrike or LOC not on thinners - here with neck pain and L rib pain hurts to move and cough. She has no fever or sputum production. Her low back hurts as well. She went to urgent care and had normal rib xray and cervical spine xray. She is here as she cannot take the pain they put her on oral steroids and pain medications. Workup in ER consistent with left posterior 10th rib fracture. Required multiple doses of morphine for pain control; lives alone. Admission requested Review of Systems 2 Review of Systems: Admits to left lateral chest pain with movement Denies shortness of breath Denies nausea vomiting diarrhea Denies fever chills [facility] Medical History (Updated 07/09/24 @ 17:28 by Alonso Cardoso DO) Thyroid activity decreased Asthma Hypercholesteremia Hypertension COPD (chronic obstructive pulmonary disease) Social History Alcohol intake: current Alcohol intake frequency: 0-2 drinks per day Patient Tobacco Use Status: Former Tobacco user Smoked in Last 30 Days: No Use of substances other than those prescribed or required for medical reasons: No Advance Directives: No Advance Directives Information Provided: Yes Do you have a plan to hurt others: No Plan Meds Allergies Allergy/AdvReac Type Severity Reaction Status Date / Time latex [LATEX] Allergy Unknown RASH Verified 07/09/24 06:48 Active Medications: Current Medications Acetaminophen (Acetaminophen 325 Mg Tablet) 650 mg PO Q6H PRN PRN Reason: Pain, Mild (Pain Scale 1-3), fever or headache Atorvastatin Calcium (Atorvastatin Calcium 10 Mg Tablet) 5 mg PO DAILY CRISTY Calcium Carbonate (Calcium Carbonate 750 Mg Tab.Chew) 750 mg PO Q4H PRN PRN Reason: Heartburn Docusate Sodium (Docusate Sodium 100 Mg Capsule) 100 mg PO BID CRISTY Enoxaparin Sodium (Enoxaparin Sodium 40 Mg/0.4 Ml Syringe) 40 mg SUBCUT Q24H CRISTY Levothyroxine Sodium (Levothyroxine Sodium 50 Mcg Tablet) 50 mcg PO DAILY@0600 CRISTY Magnesium Hydroxide (Milk Of Magnesia 30 Ml Oral.Susp) 30 ml PO DAILY PRN PRN Reason: Constipation Melatonin (Melatonin 3 Mg Tablet) 6 mg PO BEDTIME PRN PRN Reason: Insomnia Non-Formulary Medication (Budesonide-Formoterol) 2 puff INHALE BID [facility] Non-Formulary Medication (Magnesium) 500 mg PO DAILY [facility] Ondansetron HCl (Ondansetron Hcl 4 Mg/2 Ml Vial) 4 mg IVPUSH Q8H PRN PRN Reason: Nausea and Vomiting Oxycodone HCl (Oxycodone Hcl Immed Release 5 Mg Tablet) 5 mg PO Q4H PRN PRN Reason: Pain, Moderate(Pain Scale 4-6) Sodium Chloride (0.9 % Sodium Chloride Flush 3 Ml Syringe) 3 ml IVFLUSH QSHIFT [facility] Home Medications ?Medication ?Instructions ?Recorded ?Confirmed ?Last Taken ?Type amlodipine 10 mg tablet 10 mg PO DAILY 01/16/23 07/09/24 07/09/24 04:30 History atorvastatin 10 mg tablet 5 mg PO DAILY 01/16/23 07/09/24 07/09/24 04:30 History famotidine 20 mg tablet 20 mg PO BID 01/16/23 07/09/24 07/09/24 04:30 History levothyroxine 50 mcg capsule 50 mcg PO DAILY@0600 01/16/23 07/09/24 07/09/24 04:30 History lorazepam 0.5 mg tablet 0.5 mg PO DAILY PRN Anxiety 01/16/23 07/09/24 Unknown History losartan 100 mg tablet 100 mg PO DAILY 01/16/23 07/09/24 07/09/24 04:30 History magnesium 250 mg tablet 500 mg PO DAILY 01/16/23 07/09/24 07/09/24 04:30 History valacyclovir 500 mg tablet 500 mg PO DAILY PRN Flare up 01/16/23 07/09/24 Unknown History zinc acetate 50 mg (zinc) capsule 50 mg PO DAILY 01/16/23 07/09/24 07/09/24 04:30 History hydrochlorothiazide 12.5 mg capsule 12.5 mg PO DAILY 11/20/23 07/09/24 07/09/24 04:30 History albuterol sulfate 90 mcg/actuation 2 puff inhalation QID PRN wheezing 07/09/24 07/09/24 Unknown History aerosol inhaler aspirin 81 mg tablet,delayed 81 mg PO DAILY 07/09/24 07/09/24 07/09/24 04:30 History release budesonide-formoterol HFA 160 2 puff inhalation BID 07/09/24 07/09/24 07/09/24 04:30 History mcg-4.5 mcg/actuation aerosol inhaler cholecalciferol (vitamin D3) 25 25 mcg PO DAILY 07/09/24 07/09/24 07/09/24 04:30 History mcg (1,000 unit) tablet (Vitamin D3) fluticasone propionate 50 1 spray intranasal DAILY PRN Nasal 07/09/24 07/09/24 Unknown History mcg/actuation nasal Congestion spray,suspension (Flonase Allergy Relief) monglaoy-ryva-waol 8 mg-folic 400 1 tab PO DAILY 07/09/24 07/09/24 07/09/24 04:30 History mcg-K 50 mcg-lutein 300 mcg tablet (Centrum Silver Women) tiotropium bromide 18 mcg capsule 1 cap inhalation DAILY 07/09/24 07/09/24 07/09/24 04:30 History with inhalation device Physical Exam 2 Vital Signs and Narrative: Vital Signs: Last Vital Signs Temp 97.6 F 07/09/24 13:03 Pulse 91 07/09/24 13:03 Resp 14 07/09/24 13:03 BP 121/76 07/09/24 13:03 Pulse Ox 97 07/09/24 13:03 O2 Del Method Room Air 07/09/24 13:03 BMI result Body Mass Index 25.7 Const: Other: Awake alert no acute distress uncomfortable appearing Resp: Other: Clear bilaterally no rales rhonchi scattered expiratory wheezes at bases. Cardio: Other: No S4; positive S1-S2; no S3 murmurs rubs or gallops GI: Other: Soft nontender nondistended normoactive bowel sounds Neuro: Other: Cranial nerves 2-12 grossly intact as tested. Motor is 5/5 all extremities. Sensation is intact. Gait steady. Cognition is appropriate Extrem: Other: No edema bilaterally Results Labs 07/09/24 15:13 07/09/24 15:13 Labs: Laboratory Results - last 24 hr 07/09/24 15:13 MCV 92.5 MCH 31.9 MCHC 34.5 RDW 14.4 Plt Count 295 D MPV 8.9 L Immature Gran % (Auto) 0.7 H Neut % (Auto) 61.3 Lymph % (Auto) 28.7 [place] % (Auto) 8.2 Eos % (Auto) 0.8 Baso % (Auto) 0.3 Lymph # (Auto) 3.3 [place] # (Auto) 1.0 Eos # (Auto) 0.1 Baso # (Auto) 0.0 Abs Immat Gran (auto) 0.08 H Absolute Neuts (auto) 7.1 Absolute Nucleated RBC 0.000 Nucleated RBC % (auto) 0.0 Anion Gap 12 Estim Creat Clear Calc 43.6 Estimated GFR 54 Random Glucose 125 H Calcium 10.4 H D Imaging Radiologist's Impressions: Impressions Cervical Spine CT 07/09/24 07:08 IMPRESSION: Multilevel degenerative change. No fracture. Fleischner guidelines were followed. Electronically signed by: Delfino Prince MD 07/09/2024 01:50 PM EDT RP Lumbar Spine CT 07/09/24 07:08 IMPRESSION: Multilevel thoracolumbar spondylosis without acute fracture or trauma-related listhesis. Grade 1 anterolisthesis L4-5 resulting in central spinal canal stenosis. Grade 1 retrolisthesis L1-2.. Dystrophic calcifications, pancreatic. Electronically signed by: Erlin Barber MD 07/09/2024 10:52 AM EDT RP Chest CT 07/09/24 09:42 IMPRESSION: 1. Nondisplaced posterior left 10th rib fracture, new from prior. 2. There is a right upper lobe 0.4 cm pulmonary nodule which appears new from prior. Per the 2017 revised Fleischner Society guidelines, no follow-up needed if patient is low-risk (and has no known or suspected primary neoplasm). Non-contrast chest CT can be considered in 12 months if patient is high-risk. 3. Aneurysmal ascending thoracic aorta measuring up to 4.3 cm maximum AP dimension, compared to 4.1 cm by my measurement previously. Fleischner guidelines were followed. Electronically signed by: Crystal Sena DO 07/09/2024 02:35 PM EDT RP Assessment and Plan (1) Closed rib fracture: Qualifiers: Encounter type: initial encounter Laterality: left Rib fracture type: single rib Qualified Code(s): S22.32XA - Fracture of one rib, left side, initial encounter for closed fracture Status: Acute (2) Hypertension: Qualifiers: Hypertension type: primary hypertension Qualified Code(s): I10 - Essential (primary) hypertension Status: Acute Plan 8 yo female with PMH of COPD not home O2, HTN, HLD, hypothyroidism not on thinners here with c/o trip and fall last Sunday no headstrike or LOC not on thinners - here with neck pain and L rib pain hurts to move and cough. She has no fever or sputum production. Her low back hurts as well. She went to urgent care and had normal rib xray and cervical spine xray. Pain significant enough to present to ER. Workup in ER including CTA of chest demonstrated left posterior rib fracture. Patient took multiple doses of morphine in the ER; lives alone. Request for admission 1. Left posterior rib fracture -admit to observation -oxycodone/morphine for pain -encouraged deep breathing 2. Hypertension -acceptable control on current therapies as listed on outpatient reconciliation -adjust as indicated 3. COPD -prior to rib fracture, stable and well compensated -add DuoNebs q.4 hours p.r.n. shortness of breath 4. Hypothyroidism -continue outpatient therapies Full code Lovenox Patient will require 1 midnight of observational status to treat left rib pain with IV pain medication. Quality Stroke Does the patient have a stroke diagnosis?: No VTE Prior VTE?: No VTE Risk Level:: Medical - moderate - high VTE Device Contraindication: Treatment Not Indicated VTE Drug Contraindication: N/A - Med Ordered
[2024-07-09 17:43] VITALS: BP 114/72; PULSE 77; RESP 18; TEMP 36.4; O2SAT 96
--- NOTE | 2024-07-09 17:47 | PC.NURSE ---
Alert and oriented from home with complaints of left sided rib/back pain. States fell last Tue and initially had neck pain that she received pain meds for at urgent care. Reports is now having the left sided rib/ back pain. Lumbar CT negative for acute findings,cervical CT also negative for acute findings. Chest CT showed nondisplaced posterior left 10th rib fx. Medicated with Toradol, Lidocine patch, IV tylenol , and morphine with some effect. hx of COPDnhtn, hld. 20g in left AC. Has been up OOB ambulating in room and sitting in wheelchair for comfort.
--- NOTE | 2024-07-09 18:42 | PC.NURSE ---
Patient reports pain is much improved and she is feeling much better. Ate well for dinner , sitting up in wheelchair at bedside
--- NOTE | 2024-07-09 19:01 | PC.NURSE ---
report received from Kimberly BAH, assume care of pt at this time
[2024-07-09 19:39] VITALS: BP 131/89; PULSE 77; RESP 20; TEMP 36.5; O2SAT 97
[2024-07-09] MEDS: Docusate Sodium 100 MG CAPSULE PO (20:44)
[2024-07-09] MEDS: 0.9 % Sodium Chloride Flush 3 ML SYRINGE IVFLUSH (20:46)
[2024-07-09] MEDS: oxyCODONE HCl Immed Release 5 MG TABLET PO (20:49)
[2024-07-09 23:22] VITALS: BP 129/75; PULSE 70; RESP 16; TEMP 36; O2SAT 94
[2024-07-10] MEDS: Levothyroxine Sodium 50 MCG TABLET PO (06:04)
[2024-07-10 06:19] LABS: MANUAL DIFF FLAG NO
[2024-07-10 06:24] LABS: Basophils Percent Auto 0.3 % (0-2); Eosinophils Absolute Auto 0.2 X10*3/uL (0.0-0.4); Eosinophils Percent Auto 1.8 % (0-4); Hematocrit 38.9 % (37.0-47.0); Hemoglobin 13.4 g/dl (12.0-16.0); Imm Gran Abs Auto 0.05 X10*3/uL (0.00-0.03); Imm Gran Pct Auto 0.5 % (0.0-0.4); Lymphocytes Absolute Auto 2.6 X10*3/uL (1.2-4.9); Lymphocytes Percent Auto 27.6 % (20-40); Mean Corpuscular HGB Conc 34.4 g/dl (31.0-35.0); Mean Corpuscular Hemoglobin 32.1 pg (27.0-33.0); Mean Corpuscular Volume 93.3 fL (80.0-98.0); Mean Platelet Volume 9.3 fL (9.4-12.3); Monocytes Absolute Auto 0.7 X10*3/uL (0.1-1.2); Monocytes Percent Auto 7.5 % (2-11); Neutrophils Percent Auto 62.3 % (45-73); Platelet Count 261 X10*3/uL (160-400); Red Blood Count 4.17 X10*6/uL (4.20-5.50); Red Cell Distribution Width 14.3 % (11.0-16.0); White Blood Count 9.6 X10*3/uL (4.8-10.8)
[2024-07-10 06:41] LABS: Anion Gap 10 (12-20); Blood Urea Nitrogen 24 mg/dL (9-16); Calcium 9.4 mg/dL (8.4-10.2); Carbon Dioxide 34 mmol/L (22-29); Chloride 98 mmol/L (96-108); Estimated Glomerular Filt Rate 56; Glucose Random 91 mg/dL (60-115); Potassium 3.8 mmol/L (3.3-5.1); Sodium 138 mmol/L (135-145)
[2024-07-10 07:52] VITALS: BP 115/71; PULSE 74; RESP 16; TEMP 36.4; O2SAT 97
[2024-07-10] MEDS: Fluticasone/Vilanterol 200/25 BLST.W.DEV 1 PUFF INHALE (07:58)
[2024-07-10] MEDS: Tiotropium Bromide 2.5 mcg 1 PUFF/2.5 MCG MIST.INHAL 2 PUFF INHALE (07:58)
[2024-07-10 08:03] VITALS: PULSE 88; RESP 16; O2SAT 93
[2024-07-10] MEDS: hydroCHLOROthiazide 12.5 MG TABLET PO (08:32)
[2024-07-10 08:33] VITALS: BP 115/71
[2024-07-10] MEDS: oxyCODONE HCl Immed Release 5 MG TABLET PO (08:33)
[2024-07-10] MEDS: Docusate Sodium 100 MG CAPSULE PO (08:33)
[2024-07-10] MEDS: Losartan Potassium 50 MG TABLET 100 MG PO (08:33)
[2024-07-10] MEDS: Multivitamin TABLET 1 TAB PO (08:33)
[2024-07-10] MEDS: Aspirin Enteric Coated 81 MG TABLET.DR PO (08:33)
[2024-07-10] MEDS: Atorvastatin Calcium 10 MG TABLET 5 MG PO (08:33)
[2024-07-10] MEDS: amLODIPine Besylate 10 MG TABLET PO (08:34)
[2024-07-10] MEDS: Famotidine 20 MG TABLET PO (08:34)
[2024-07-10] MEDS: Magnesium Oxide 400 MG TABLET PO (08:34)
[2024-07-10] MEDS: Cholecalciferol (Vitamin D3) 25 MCG TABLET PO (08:34)
[2024-07-10] MEDS: 0.9 % Sodium Chloride Flush 3 ML SYRINGE IVFLUSH (08:34)
--- NOTE | 2024-07-10 11:38 | PM.DS ---
DS: Providers Provider Date of Service: 07/10/24 Date of admission: 07/09/24 17:11 Date of discharge: 07/10/24 Primary care physician: Miko Marshall MD Consults: 07/09/24 19:53 Consult to Wound Care Routine Reason for consultation: left lower leg small wound/scab biopsy site. DS: Diagnosis Discharge Diagnosis (1) Closed rib fracture: Status: Acute (2) Hypertension: Status: Acute DS: Summary Hospital Course Hospital Course: Admission note HPI 78 yo female with PMH of COPD not home O2, HTN, HLD, hypothyroidism not on thinners here with c/o trip and fall last Sunday no headstrike or LOC not on thinners - here with neck pain and L rib pain hurts to move and cough. She has no fever or sputum production. Her low back hurts as well. She went to urgent care and had normal rib xray and cervical spine xray. She is here as she cannot take the pain they put her on oral steroids and pain medications. Workup in ER consistent with left posterior 10th rib fracture. Required multiple doses of morphine for pain control; lives alone. Admission requested. Hospital course The patient was admitted for as Left posterior rib fracture CTA of chest demonstrated left posterior rib fracture requiring multiple doses of PO and IV pain medications. She was started on PRN Oxycodone and Morphine. encouraged deep breathing and had a good night sleep. this morning she feels much better and was able to participate with PT with pain reported to be well controlled on PO Oxycodone and was able to go up and down stairs. No PT recommended on discharge, she can follow for outpatient PT. To be discahrged on 2.5 PRN Oxycodone and around the clock Tylenol. Discharge plan Use Oxycodone as needed for pain control Take Tylenol 3 times a day regularly for next week Incentive spirometry to avoid pneumpnia Follow with PCP as outpatient if no improvement in pain Time Attestation Discharge Coordination Time (in mins): 26 Quality: Safe Use of Opioids Does Pt have an Active Cancer Diagnosis on the Problem List?: No Quality: Stroke Does the patient have a stroke diagnosis?: No Physical Exam Vital Signs: Vital Signs: Last Vital Signs Temp 97.5 F 07/10/24 07:52 Pulse 88 07/10/24 08:03 Resp 16 07/10/24 08:03 BP 115/71 07/10/24 08:33 Pulse Ox 97 07/10/24 07:52 O2 Del Method Room Air 07/10/24 07:52 BMI result Body Mass Index 25.7 Const: Other: Constitutional : interactive, not in distress Cardiovascular : no JVP, no lower extremity edema Respiratory : bilateral chest movement, not in resp distress , Left posterior mild tenderness on her chest wall Gastrointestinal: soft, lax, Non tender Skin : Warm, Dry Neurological : Alert & oriented , No focal deficit DS: Data Data Completed and Pending Labs on day of discharge: Laboratory Results - last 24 hr 07/09/24 07/10/24 15:13 05:08 WBC 11.5 H 9.6 RBC 4.77 4.17 L Hgb 15.2 13.4 Hct 44.1 38.9 MCV 92.5 93.3 MCH 31.9 32.1 MCHC 34.5 34.4 RDW 14.4 14.3 Plt Count 295 D 261 MPV 8.9 L 9.3 L Immature Gran % (Auto) 0.7 H 0.5 H Neut % (Auto) 61.3 62.3 Lymph % (Auto) 28.7 27.6 [place] % (Auto) 8.2 7.5 Eos % (Auto) 0.8 1.8 Baso % (Auto) 0.3 0.3 Lymph # (Auto) 3.3 2.6 [place] # (Auto) 1.0 0.7 Eos # (Auto) 0.1 0.2 Baso # (Auto) 0.0 0.0 Abs Immat Gran (auto) 0.08 H 0.05 H Absolute Neuts (auto) 7.1 6.0 Absolute Nucleated RBC 0.000 0.000 Nucleated RBC % (auto) 0.0 0.0 Sodium 141 138 Potassium 3.7 3.8 Chloride 97 98 Carbon Dioxide 36 H 34 H Anion Gap 12 10 L BUN 19 H 24 H Creatinine 0.99 0.96 Estim Creat Clear Calc 43.6 45.0 Estimated GFR 54 56 Random Glucose 125 H 91 Calcium 10.4 H D 9.[address] scan - chest: Radiologist's impression: ITS Impressions Cervical Spine CT 07/09/24 07:08 IMPRESSION: Multilevel degenerative change. No fracture. Fleischner guidelines were followed. Electronically signed by: Delfino Prince MD 07/09/2024 01:50 PM EDT RP Lumbar Spine CT 07/09/24 07:08 IMPRESSION: Multilevel thoracolumbar spondylosis without acute fracture or trauma-related listhesis. Grade 1 anterolisthesis L4-5 resulting in central spinal canal stenosis. Grade 1 retrolisthesis L1-2.. Dystrophic calcifications, pancreatic. Electronically signed by: Erlin Barber MD 07/09/2024 10:52 AM EDT RP Chest CT 07/09/24 09:42 IMPRESSION: 1. Nondisplaced posterior left 10th rib fracture, new from prior. 2. There is a right upper lobe 0.4 cm pulmonary nodule which appears new from prior. Per the 2017 revised Fleischner Society guidelines, no follow-up needed if patient is low-risk (and has no known or suspected primary neoplasm). Non-contrast chest CT can be considered in 12 months if patient is high-risk. 3. Aneurysmal ascending thoracic aorta measuring up to 4.3 cm maximum AP dimension, compared to 4.1 cm by my measurement previously. Fleischner guidelines were followed. Electronically signed by: Crystal Sena DO 07/09/2024 02:35 PM EDT RP Discharge Plan Discharge Anticipated Discharge Date/Time: 07/10/24 11:34 Patient Disposition: Home, Self-Care Discharge Diagnosis: Pain from rib fracture Referrals: Marky Ceja PA-C [Physician Animal Daycare Provider] - 07/15/24 1:00 pm ([facility] FOR FOLLOW-UP ON BIOPSY SITE. PLEASE SEE MARKY CEJA AT HER [facility] AT [address] [place] [address]. ) Miko Marshall MD [Primary Care Provider] - 1 Week Discharge Medications: New oxycodone 5 mg Tablet 2.5 mg PO Q4H PRN (Reason: pain, severe) Qty: 10 0RF Rx Instructions: Partial Fill upon patient request. Continued tiotropium bromide 18 mcg capsule, w/inhalation device 1 cap inhalation DAILY budesonide-formoterol 160-4.5 mcg/actuation HFA aerosol inhaler 2 puff INHALATION BID aspirin 81 mg Tablet,Delayed Release (Dr/Ec) 81 mg PO DAILY albuterol sulfate 90 mcg/actuation HFA aerosol inhaler 2 puff INHALATION QID PRN (Reason: wheezing) Centrum Silver Women 8 mg iron-400 mcg-50 mcg Tablet 1 tab PO DAILY fluticasone propionate [Flonase Allergy Relief] 50 mcg/actuation spray,suspension 1 spray intranasal DAILY PRN (Reason: Nasal Congestion) Rx Instructions: administer into each nostril cholecalciferol (vitamin D3) [Vitamin D3] 25 mcg (1,000 unit) Tablet 25 mcg PO DAILY amlodipine 10 mg tablet 10 mg PO DAILY losartan 100 mg tablet 100 mg PO DAILY atorvastatin 10 mg tablet 5 mg PO DAILY famotidine 20 mg tablet 20 mg PO BID levothyroxine 50 mcg capsule 50 mcg PO DAILY@0600 magnesium 250 mg tablet 500 mg PO DAILY zinc acetate 50 mg (zinc) capsule 50 mg PO DAILY lorazepam 0.5 mg tablet 0.5 mg PO DAILY PRN (Reason: Anxiety) valacyclovir 500 mg tablet 500 mg PO DAILY PRN (Reason: Flare up) hydrochlorothiazide 12.5 mg capsule 12.5 mg PO DAILY Discharge Orders: Discharge Order (Routine); Ordered 07/10/24 Ordered By: Leslie Mcqueen Diet: Advance to usual diet Activity on Discharge: As tolerated Stand Alone Forms: Patient Portal Discharge page Print Language: Sinhala Care Plan Goals: Use Oxycodone as needed for pain control Take Tylenol 3 times a day regularly for next week Incentive spirometry to avoid pneumpnia Follow with PCP as outpatient if no improvement in pain Health Concerns: Pain from fractured rib Plan of Treatment: Pain control Outpatient physical therapy Assessment: as above
--- NOTE | 2024-07-10 12:25 | MHC.CM.PN ---
MARÍA 07/10/24, EMR REVIEWED, PT W/L RIB FX PAIN, CM MET W/PT WHO REPORTS SHE NOW LIVES ALONE HER DTR , PT IS FULLY INDEP W/ALL CARE, DENIES USE OF DME/SERVICES AND GOAL FOR DC IS HOME TODAY. PT C/O PAIN ON [place] WHERE SHE HAD A BIOPSY 05/23 AT [facility], HOSPITALIST AWARE AND CM HAS MADE A FOLLOW UP APPT W/DERMATOLOGY CORNELIO CEJA ON 07/15 AT 1PM AT THE [facility], APPT ADDED TO DC PAPERWORK AND VERBALLY DELIVERED TO PT WELL. PT VERIFIES PCP ON FILE IS CORRECT AND PT REPORTS SHE DOES NEED TO DO A NEW HCP HER PROXY IS HOWEVER SHE IS ONE OF 12 AND NOT SURE WHO SHE WILL CHOSE AT THIS TIME.
== END 2024-07-10 12:18 | disposition home or self-care (01) ==
LOC: HO.ED 15:14 → HO.EDOVER 17:17 → HO.S3 19:09
PROVIDERS: Admitting Provider Hospitalist; Emergency Provider Emergency Medicine; PCP Internal Medicine; Visit Provider Student in an Organized Health Care Education/Training Program
DX: S22.32XA Fracture of one rib, left side, initial encounter for closed fracture (principal); W01.0XXA Fall on same level from slipping, tripping and stumbling without subsequent striking against object, initial encounter; Y93.9 Activity, unspecified; Y92.9 Unspecified place or not applicable; Y99.9 Unspecified external cause status; I10 Essential (primary) hypertension; M54.2 Cervicalgia; R07.89 Other chest pain; E78.5 Hyperlipidemia, unspecified; J44.9 Chronic obstructive pulmonary disease, unspecified; E03.9 Hypothyroidism, unspecified; Z79.899 Other long term (current) drug therapy
CPT/HCPCS: 36415; 71250; 72125; 72131; 80048; 85025; 94640; 96365; 96375; 96376; 97161; 99221; 99285; J0131; J1885; J2270

== ENCOUNTER → 2024-07-09 07:08 | Outpatient (BNV) | payer MEDICARE, BC, SELFPAY | PROVIDERS: Emergency Provider Emergency Medicine; PCP Internal Medicine; Visit Provider Radiology Diagnostic Radiology | DX: M54.50 Low back pain, unspecified (principal) | CPT/HCPCS: 72131 ==

== ENCOUNTER → 2024-07-09 17:11 | Outpatient (BNV) | payer MEDICARE, BC, SELFPAY | PROVIDERS: Admitting Provider Hospitalist; Emergency Provider Emergency Medicine; PCP Internal Medicine; Visit Provider Hospitalist | DX: S22.32XA Fracture of one rib, left side, initial encounter for closed fracture (principal); I10 Essential (primary) hypertension | CPT/HCPCS: 99223; 99238 ==

== ENCOUNTER 2024-09-08 14:14 | Outpatient (REF) | payer MEDICARE, BC, SELFPAY ==
--- NOTE | ~2024-09-08 | XR_ITS ---
EXAMINATION: XR SINUSES CLINICAL INFORMATION: Sinusitis . COMPARISON: None available. TECHNIQUE: 5 views of the paranasal sinuses. FINDINGS: Dental hardware in place. Nasal septum deviates to the right. No gross air-fluid levels in the maxillary sinuses. Frontal sinuses appear patent. Sphenoid sinus grossly clear. On the lateral view, there is extensive horizontal, linear artifact which limits visualization. Repeat view with appropriate technique should be obtained at no charge to the patient. If this image is provided, an addendum will be dictated. The radiology communications staff has been asked to contact the technologist. Metallic device overlying the temporal region on the lateral view, possibly related to jewelry, is seen on the lateral view. XR/XR sinus min 3V IMPRESSION: 1. Nasal septum deviates to the right. 2. No gross air-fluid levels in the maxillary sinuses. Frontal sinuses appear patent. Sphenoid sinus clear. 3. On the lateral view, there is extensive horizontal, linear artifact which limits visualization. Repeat view with appropriate technique should be obtained at no charge to the patient. If this image is provided, an addendum will be dictated. The radiology communications staff has been asked to contact the technologist This study was presented today September 09, 2024 for interpretation. Stat results provided at this time as requested by referring provider. Electronically signed by: Randi Duncan MD 09/09/2024 10:11 AM ALTHEA JACKSON
--- OUTSIDE RECORDS SUMMARY | 2024-09-08 14:19 | XMS_ITS | Continuity of Care Document ---
Author Organization [facility] Address [address] [place] [id number] Care Team Providers Care Early Years Teacher Name Role Phone Joanna VO, Miko Guillen Primary Care Physician Encounter [facility] Date(s): 08/01/24 - 08/31/24 [facility] [address] [place] [id number] Attending Physician: Paco Anderson Admitting Physician: Paco Anderson Referring Physician: Admtr ArTerrie Encounter Type: Triage Allergies, Adverse Reactions, Alerts Substance Criticality Severity Reaction Reaction Severity Status Adhesive Bandage rash swelling [...] 06/22/15 Stan rded influenza virus vaccine, inactivated 9/4/14 Give n influenza virus vaccine, inactivated 4 [...] 06/24/08 Give n 1Result Comment: [facility]: [id number] 2Location History[facility] 3Result Comment: [06/23/2016] HIGH DOSE 4Admin Note: FLUARIX 5Admin Note: VIS GIVEN 6Admin Note: CDC info given to patient 7Admin Note: [facility] 8Admin Note: historical data 9Admin Note: Information sheet given 10Admin Note: given in clinic Medications Aerochamber See Instructions, # 1 each, Maintenance, use with albuterol inhaler., 11/25/20 9:56:00 AM EST, Supply, 158, cm, 09/30/20 14:41:00 EST, Height Start Date: 11/25/20 Status: Ordered Quantity: 1.0 Unit: each Repeat number: 1 albuterol 0.083% inhalation solution 3 mL = 2.5 mg, Inhalation, Every 6 hours, use with nebulizer, j44.9, # 1,080 mL, 3 Refills, Maintenance, 01/01/25 3:18:00 PM EDT, Solution, [facility]/pharmacy #[id number], Partial fill upon patient request if theprescription is for a schedule II opioid drug., 155, cm, 01/07/24 14:45:00 EDT, Height, 52.25, kg, 04/27/22 14:46:00 EDT, Dry Weight Start Date: 01/01/25 Stop Date: 12/27/25 Status: Ordered Quantity: 1080.0 Unit: mL Repeat number: 4 amLODIPine 10 mg oral tablet 1 tablet, By Mouth, Daily, # 90 tablet, 3 Refills, Maintenance, 08/20/24 9:37:00 AM EST, [id number], 155, cm, 06/05/24 11:12:00 EDT, Height Start Date: 08/20/24 Status: Ordered Quantity: 90.0 Unit: tablet Repeat number: 1 aspirin 81 mg oral delayed release tablet 81 mg, 1, tablet, By Mouth, Daily, # 90 tablet, Refills 0, Maintenance, 02/21/23 10:47:00 AM EDT, Partial fill upon patient request if the prescription is for a schedule II opioid drug. Start Date: 02/21/23 Status: Ordered Quantity: 90.0 Unit: tablet Repeat number: 1 atorvastatin 10 mg oral tablet 0.5 tablet, By Mouth, Daily, # 45 tablet, 1 Refills, Maintenance, 08/18/24 3:48:00 PM EST, [facility]/pharmacy #[id number], 155, cm, 06/05/24 11:12:00 EDT, Height Start Date: 08/18/24 Status: Ordered Quantity: 45.0 Unit: tablet Repeat number: 2 budesonide-formoterol 160 mcg-4.5 mcg/inh inhalation aerosol with adapter 2, puffs, Inhalation, 2 times a day, # 30.6 each, Refills 11, Tot. Refills 11, Maintenance, 03/03/2411:43:00 AM EDT, Route to Pharmacy Electronically, [id number], [facility]/pharmacy #[id number], 155, cm, 03/03/24 8:56:00 EDT, Height, 52.25, kg, 04/27/22 14:46:00 EDT, Dry Weight Start Date: 03/03/24 Status: Ordered Quantity: 30.6 Unit: each Repeat number: 12 Centrum Silver By Mouth, Daily, 0 Refills, Maintenance, 01/11/17 2:23:47 PM EDT Start Date: 01/11/17 Status: Ordered Repeat number: 1 chlorthalidone 25 mg oral tablet 12.5 mg, 0.5, tablet, By Mouth, Daily, # 15 tablet, Refills 0, Maintenance, 01/26/23 10:54:00 AM EDT, Partial fill upon patient request if the prescription is for a schedule II opioid drug. Start Date: 01/26/23 Status: Ordered Quantity: 15.0 Unit: tablet Repeat number: 1 Compression Stockings See Instructions, # 1 each, Refills 1, Tot. Refills 1, Maintenance, surgical, calf length 20-30 mm Hg, 10/12/23 4:47:00 PM EST, Supply Start Date: 10/12/23 Status: Ordered Quantity: 1.0 Unit: each Repeat number: 2 famotidine 20 mg oral tablet 20 mg, 1, tablet, By Mouth, 2 times a day, # 60 tablet, Refills 11, Tot. Refills 11, Maintenance, 09/28/23 1:34:00 PM EST, Route to Pharmacy Electronically, [facility]/pharmacy #[id number], Partial fill upon patient request if the prescription is for a schedule II opioid drug., 155, cm, 08/27/23 8:53:00 EST, Height, 52.25, kg, 04/27/22 14:46:00 EDT, Dry Weight Start Date: 09/28/23 Stop Date: 09/22/24 Status: Ordered Quantity: 60.0 Unit: tablet Repeat number: 12 fluticasone 50 mcg/inh nasal spray 1 sprays, Nares, Both, 2 times a day, # 16 Gm, 11 Refills, Maintenance, 06/29/23 3:10:00 PM EDT, Nasal [place], [facility]/pharmacy #[id number], Partial fill upon patient request if the prescription is for a schedule II opioid drug., 1 sprays Nares, Both 2 times a day, 155, cm, 06/29/23 14:50:00 EDT, Height, 52.25, kg, 04/27/22 14:46:00 EDT, Dry Weight Start Date: 06/29/23 Status: Ordered Quantity: 16.0 Unit: g Repeat number: 12 gabapentin 100 mg oral capsule 100 mg, 1, capsule, By Mouth, 3 times a day, # 90 capsule, Refills 1, Tot. Refills 1, Maintenance, 06/05/24 11:36:00 AM EDT, [id number] Partial fill upon patient request if the prescription is for a schedule II opioid drug., 155, cm, 06/05/24 11:12:00 EDT, Height Start Date: 06/05/24 Status: Ordered Quantity: 90.0 Unit: capsule Repeat number: 2 hydroCHLOROthiazide 12.5 mg oral capsule 1 capsule, By Mouth, Daily, # 90 capsule, 1 Refills, Maintenance, 03/14/24 11:38:00 AM EDT, [facility]/pharmacy #[id number], 155, cm, 03/03/24 8:56:00 EDT, Height, 52.25, kg, 04/27/22 14:46:00 EDT, Dry Weight Start Date: 03/14/24 Status: Ordered Quantity: 90.0 Unit: capsule Repeat number: 2 levothyroxine 0.05 mg oral tablet 1 tablet, By Mouth, Daily, # 90 tablet, 1 Refills, Maintenance, 08/31/24 9:15:00 AM EST, [id number], 155, cm, 06/05/24 11:12:00 EDT, Height Start Date: 08/31/24 Status: Ordered Quantity: 90.0 Unit: tablet Repeat number: 1 LORazepam 0.5 mg oral tablet 1 tablet = 0.5 mg, By Mouth, Daily, PRN for anxiety, # 24 tablet, 1 Refills, Maintenance, 12/11/23 9:46:00 AM EDT, Tablet, [facility]/pharm[facility] #[id number], 155, cm, 10/12/23 16:44:00 EST, Height, 52.25, kg, 04/27/22 14:46:00 EDT, Dry Weight Start Date: 12/11/23 Status: Ordered Quantity: 24.0 Unit: tablet Repeat number: 2 losartan 100 mg oral tablet 1 tablet, By Mouth, Daily, # 90 tablet, 3 Refills, Maintenance, 08/20/24 9:37:00 AM EST, [id number], 155, cm, 06/05/24 11:12:00 EDT, Height Start Date: 08/20/24 Status: Ordered Quantity: 90.0 Unit: tablet Repeat number: 1 magnesium oxide 500 mg oral tablet 1 tablet = 500 mg, By Mouth, Daily, 0 Refills, Maintenance, 06/28/18 10:06:58 AM EDT Start Date: 06/28/18 Status: Ordered Repeat number: 1 Metamucil 500 mg oral capsule 0 Refills, Maintenance, 01/17/24 11:14:00 AM EDT, Partial fill upon patient request if the prescription is for a schedule II opioid drug. Start Date: 01/17/24 Status: Ordered Repeat number: 1 MiraLax oral powder for reconstitution = 17 Gm, By Mouth, Daily, # 238 Gm, 0 Refills, Maintenance, 01/17/24 11:14:00 AM EDT, REC Powder, Partial fill upon patient request if the prescription is for a schedule II opioid drug. Start Date: 01/17/24 Status: Ordered Quantity: 238.0 Unit: g Repeat number: 1 Nebulizer/Compressor See Instructions, # 1 each, Refills 11, Tot. Refills 11, Maintenance, E0570 Nebulizer A7003 Neb Disp Set A7014 Neb non-Disp Filter A7005 Neb Non-Disp set A7015 Aerosol Mask A7013 Neb Disp Filter length of need lifetime 99 months for home use dx J45.909, 01/08/24 10:17:00 AM EDT, Supply Start Date: 01/08/24 Status: Ordered Quantity: 1.0 Unit: each Repeat number: 12 Spiriva HandiHaler 18 mcg inhalation capsule 1 capsule = 18 mcg, Inhalation, Daily, # 90 capsule, 3 Refills, Maintenance, 01/07/24 3:17:00 PM EDT, [id number], Partial fill upon patient request if the prescription is for a schedule II opioid drug., 155, cm, 01/07/24 14:45:00 EDT, Height, 52.25, kg, 04/27/22 14:46:00 EDT, Dry Weight Start Date: 01/07/24 Stop Date: 01/01/25 Status: Ordered Quantity: 90.0 Unit: capsule Repeat number: 4 valACYclovir 500 mg oral tablet 1, tablet, By Mouth, Daily, # 90 tablet, Refills 1, Tot. Refills 1, Maintenance, 03/14/24 11:38:00 AM EDT, Route to Pharmacy Electronically, [facility]/pharm[facility] #[id number], 155, cm, 03/03/24 8:56:00 EDT, Height, 52.25, kg, 04/27/22 14:46:00 EDT, Dry Weight Start Date: 03/14/24 Status: Ordered Quantity: 90.0 Unit: tablet Repeat number: 2 Ventolin HFA 108 mcg/inh inhalation aerosol with adapter 2 puffs, Inhalation, 4 times a day, PRN for wheezing, # 3 each, 3 Refills, Maintenance, 01/07/24 3:20:00 PM EDT, Aerosol, [facility] #[id number], Partial fill upon patient request if the prescription is for a schedule II opioid drug., 155, cm, 01/07/24 14:45:00 EDT, Height, 52.25, kg, 04/27/22 14:46:00 EDT, Dry Weight Start Date: 01/07/24 Stop Date: 01/01/25 Status: Ordered Quantity: 3.0 Unit: each Repeat number: 4 Zinc = 140 mg, By Mouth, Daily, 0 Refills, Maintenance, 08/05/21 11:28:00 AM EST, Partial fill upon patient request if the prescription is for a schedule II opioid drug. Start Date: 08/05/21 Status: Ordered Repeat number: 1 Problem List Condition Confirmation Course Effective Dates [...] CT measuring 4.1 [address]. 2CT scan 2016 94344; repeat 2028 4colo 2009 nl, repeat 2019 5Problem added by Discern Expert 6colo 2018 7egd 2012 no barretts 8colo 2018 9Status post laparotomy with lysis of adhesions and repair of incarcerated ventral hernia. Surgery performed March 2018. 10Thyroid peroxidase antibody positive Social History Social History Type Response Smoking Status Former smoker, quit more than 30 days ago entered on: 01/07/24 Sex Female Sex Representation Female (finding) Patient Care team information Care Team Personnel Name: Maria G Mendez RN Position: S RN Member Role: Primary Care Nurse Name: Barby Frias Position: [facility] Outreach Member Role: Lifetime Consulting Physician Name: Miko Marshall MD Position: [facility] Physician - Primary Care Member Role: PCP Address: [address] [place] [id number]- Telecom: Name: Zachary Biswas MD Position: [facility] Renal MD Member Role: Lifetime Consulting Physician Address: [address] [place], [place] [address] [place] [address]- Telecom: Name: Sridhar De Leon RN Position: [facility] RN Member Role: Primary Care Nurse Care Team Related Persons Name: MU CONTRERAS Name: SHANELL COBIAN Insurance Providers Guarantor name: SATHISH MARIE Health Plan Information #: 1 Payer: MEDICARE PART B OUTPT Member Number: NA Policy Number: NA Group Number: NA Health Plan Information #: 2 Payer: [employer] Member Number: NA Policy Number: NA Group Number: NA
--- OUTSIDE RECORDS SUMMARY | 2024-09-08 14:19 | XMS_ITS | Continuity of Care Document ---
Author Organization [facility] Address [address] [place] [id number]- Care Team Providers Care Manager Student Services Name Role Phone Joanna VO, Miko Guillen Primary Care Physician Encounter [facility] [place] Date(s): 05/21/24 - 08/31/24 [facility] [address] [place] [id number] Attending Physician: Erich Pham MD Admitting Physician: Erich Pham MD Referring Physician: Miko Marshall MD Encounter Type: Pre-OutPatient One Time Allergies, Adverse Reactions, Alerts Substance Criticality Severity [...] 10 06/24/08 Give n 1Result Comment: [facility]: [id number] 2[facility] Comment: [06/23/2016] HIGH [...] Refills, Maintenance, 01/01/25 3:18:00 PM EDT, Solution, [facility]/pharmacy #[id number], Partial fill upon patient request [...] 3 Refills, Maintenance, 08/20/24 9:37:00 AM EST, [facility] STORE [id number], 155, cm, 06/05/24 11:12:00 EDT, Height Start [...] 1 Refills, Maintenance, 08/18/24 3:48:00 PM EST, [facility]/pharmacy #[id number], 155, cm, 06/05/24 11:12:00 EDT, Height Start Date: 08/18/24 Status: Ordered Quantity: 45.0 Unit: tablet Repeat number: 2 budesonide-formoterol 160 mcg-4.5 mcg/inh inhalation aerosol with adapter 2, puffs, Inhalation, 2 times a day, # 30.6 each, Refills 11, Tot. Refills 11, Maintenance, 03/03/2411:43:00 AM EDT, Route to Pharmacy Electronically, [id number], [facility]/pharmacy #[id number], 155, cm, 03/03/24 8:56:00 EDT, [...] 1:34:00 PM EST, Route to Pharmacy Electronically, [facility]/pharmacy #[id number], Partial fill upon patient request [...] Refills, Maintenance, 06/29/23 3:10:00 PM EDT, [place], [facility]/pharmacy #[id number], Partial fill upon patient request [...] 11:36:00 AM EDT, [id number] Partial fill upon patient request if the prescription is for a schedule II opioid drug., 155, cm, 06/05/24 11:12:00 EDT, Height Start Date: 06/05/24 Status: Ordered Quantity: 90.0 Unit: capsule Repeat number: 2 hydroCHLOROthiazide 12.5 mg oral capsule 1 capsule, By Mouth, Daily, # 90 capsule, 1 Refills, Maintenance, 03/14/24 11:38:00 AM EDT, [facility]/pharmacy #[id number], 155, cm, 03/03/24 8:56:00 EDT, Height, 52.25, kg, 04/27/22 14:46:00 EDT, Dry Weight Start Date: 03/14/24 Status: Ordered Quantity: 90.0 Unit: capsule Repeat number: 2 levothyroxine 0.05 mg oral tablet 1 tablet, By Mouth, Daily, # 90 tablet, 1 Refills, Maintenance, 08/31/24 9:15:00 AM EST, [facility] STORE [id number], 155, cm, 06/05/24 11:12:00 EDT, Height Start Date: 08/31/24 Status: Ordered Quantity: 90.0 Unit: tablet Repeat number: 1 LORazepam 0.5 mg oral tablet 1 tablet = 0.5 mg, By Mouth, Daily, PRN for anxiety, # 24 tablet, 1 Refills, Maintenance, 12/11/23 9:46:00 AM EDT, Tablet, [facility]/pharmacy #[id number], 155, cm, 10/12/23 16:44:00 EST, Height, 52.25, kg, 04/27/22 14:46:00 EDT, Dry Weight Start Date: 12/11/23 Status: Ordered Quantity: 24.0 Unit: tablet Repeat number: 2 losartan 100 mg oral tablet 1 tablet, By Mouth, Daily, # 90 tablet, 3 Refills, Maintenance, 08/20/24 9:37:00 AM EST, [id number], 155, cm, 06/05/24 11:12:00 EDT, Height Start [...] 11:38:00 AM EDT, Route to Pharmacy Electronically, [facility]/pharmacy #[id number], 155, cm, 03/03/24 8:56:00 EDT, Height, 52.25, kg, 04/27/22 14:46:00 EDT, Dry Weight Start Date: 03/14/24 Status: Ordered Quantity: 90.0 Unit: tablet Repeat number: 2 Ventolin HFA 108 mcg/inh inhalation aerosol with adapter 2 puffs, Inhalation, 4 times a day, PRN for wheezing, # 3 each, 3 Refills, Maintenance, 01/07/24 3:20:00 PM EDT, Aerosol, [facility]/pharmacy #[id number], Partial fill upon patient request [...] CT measuring 4.1 cm. 2CT scan 2015 16596; repeat 2028 4colo 2009 nl, repeat 2018 [...] Primary Care Nurse Name: Barby Frias Position: [facility] Outreach Member Role: Lifetime Consulting Physician Name: Miko Marshall MD Position: [facility] Physician - Primary Care Member Role: PCP Address: [address] [place] [phone]- Telecom: Name: Zachary Biswas MD Position: [facility] Renal MD Member Role: Lifetime Consulting Physician Address: [address] [place], [place] [address] [place] [address]- Telecom: Name: Sridhar De Leon RN Position: [facility] RN Member Role: Primary Care Nurse Care Team Related Persons Name: MU CONTRERAS Name: SHANELL COBIAN Insurance Providers Guarantor name: SATHISH MARIE Health Plan Information #: 2 Payer: [employer] Member Number: [id number] Policy Number: NA Group Number: [id number] Health Plan Information #: 1 Payer: MEDICARE PART B OUTPT Member Number: [id number] Policy Number: NA Group Number: [id number]
== END 2024-09-08 14:15 | disposition home or self-care (01) ==
LOC: HO.XRAY 14:14
PROVIDERS: PCP Internal Medicine; Visit Provider Otolaryngology
DX: J32.9 Chronic sinusitis, unspecified (principal)
CPT/HCPCS: 70220

== ENCOUNTER 2024-10-28 19:19 | Emergency (ER) | payer MEDICARE, BC, SELFPAY ==
--- NOTE | ~2024-10-28 | XR_ITS ---
CLINICAL HISTORY: pneumonia 1 view chest x-ray Comparison: CR/SR - XR CHEST 1V - 10/10/22 17:34 EST Findings: No consolidation or effusion. Similar prominent/enlarged cardiac silhouette. No acute fracture. IMPRESSION: 1. No acute findings. This document has been electronically signed by: Canelo Paris MD on 10/28/2024 20:22:59
[2024-10-28 19:27] VITALS: BP 129/84; BP 146/81; PULSE 86; PULSE 88; RESP 17; TEMP 37.2; O2SAT 94; O2SAT 96; BMI 22.7
--- NOTE | 2024-10-28 19:36 | ED_ITS ---
HPI - General Adult General Chief complaint: Upper Respiratory Symptoms Stated complaint: flu like symptoms x1 week, tired of cough Time Seen by Provider: 10/29/24 03:36 Source: patient Mode of arrival: ambulatory Limitations: no limitations History of Present Illness ED Provider: HPI narrative: Patient with flu-like symptoms for last 5 days does have chronic cough but for last 2 -3 days cough is getting worse with rhinorrhea, body aches, low high- grade fever no other family member sick Related Data Home Medications ?Medication ?Instructions ?Recorded ?Confirmed amlodipine 10 mg tablet 10 mg PO DAILY 01/16/23 07/09/24 atorvastatin 10 mg tablet 5 mg PO DAILY 01/16/23 07/09/24 famotidine 20 mg tablet 20 mg PO BID 01/16/23 07/09/24 levothyroxine 50 mcg capsule 50 mcg PO DAILY@0600 01/16/23 07/09/24 lorazepam 0.5 mg tablet 0.5 mg PO DAILY PRN Anxiety 01/16/23 07/09/24 losartan 100 mg tablet 100 mg PO DAILY 01/16/23 07/09/24 magnesium 250 mg tablet 500 mg PO DAILY 01/16/23 07/09/24 valacyclovir 500 mg tablet 500 mg PO DAILY PRN Flare up 01/16/23 07/09/24 zinc acetate 50 mg (zinc) capsule 50 mg PO DAILY 01/16/23 07/09/24 hydrochlorothiazide 12.5 mg capsule 12.5 mg PO DAILY 11/20/23 07/09/24 albuterol sulfate 90 mcg/actuation 2 puff inhalation QID PRN wheezing 07/09/24 07/09/24 aerosol inhaler aspirin 81 mg tablet,delayed 81 mg PO DAILY 07/09/24 07/09/24 release budesonide-formoterol HFA 160 2 puff inhalation BID 07/09/24 07/09/24 mcg-4.5 mcg/actuation aerosol inhaler cholecalciferol (vitamin D3) 25 25 mcg PO DAILY 07/09/24 07/09/24 mcg (1,000 unit) tablet (Vitamin D3) fluticasone propionate 50 1 spray intranasal DAILY PRN Nasal 07/09/24 07/09/24 mcg/actuation nasal Congestion spray,suspension (Flonase Allergy Relief) [id number] 8 mg-folic 400 1 tab PO DAILY 07/09/24 07/09/24 mcg-K 50 mcg-lutein 300 mcg tablet (Centrum Silver Women) tiotropium bromide 18 mcg capsule 1 cap inhalation DAILY 07/09/24 07/09/24 with inhalation device Previous Rx's ?Medication ?Instructions ?Recorded oxycodone 5 mg tablet 2.5 mg (1/2 x 5 mg) PO Q4H PRN 07/10/24 pain, severe #10 tabs benzonatate 200 mg capsule 200 mg PO TID PRN cough #30 caps 10/29/24 prednisone 20 mg tablet 40 mg (2 x 20 mg) PO DAILY #10 tabs 10/29/24 Allergies Allergy/AdvReac Type Severity Reaction Status Date / Time latex [LATEX] Allergy Unknown RASH Verified 10/28/24 19:32 Review of Systems Review of Systems: Yes all other systems are reviewed and are negative [facility] Past Medical History Medical History Thyroid activity decreased Asthma Hypercholesteremia Hypertension COPD (chronic obstructive pulmonary disease) Social History Social History Alcohol intake: current Alcohol intake frequency: 0-2 drinks per day Patient Tobacco Use Status: Former Tobacco user Advance Directives: No Do you have a plan to hurt others: No Plan Physical Exam ED Vital Signs: Vital Signs - 24 hr 10/28/24 23:36 10/29/24 05:25 Temperature 97.6 F 97.9 F Pulse Rate 78 84 Respiratory Rate 17 24 H Blood Pressure 105/71 108/64 Pulse Oximetry 95 95 Oxygen Delivery Method Room Air Room Air BMI result Body Mass Index 22.7 Appearance: Alert. Oriented X3. No acute distress. Eyes: PERRLA, No Nystagmus ENT: Pharynx normal. Oral Mucosa moist clear rhinorrhea Neck: Normal inspection. Neck supple. CVS: Normal heart rate and rhythm. Pulses normal. Respiratory: No respiratory distress. Equal air entry bilateral, no whe ezing/rales/rhonchi dry cough Abdomen: Soft and nontender. Bowel sounds are present, no mass palpable, no CVA tenderness Skin: Skin warm and dry. Normal skin color. Normal skin turgor. Extremities: No lower extremity edema. No calf tenderness Neuro: Oriented X 3. No motor deficit. No sensory deficit.No cerebellar signs , cranial nerves II-XII intact Course Course Course Narrative: RME: 79-year-old female presents to ED for URI symptoms for 5 days. Patient states coughing body aches chills. Patient given prednisone but refused to take it by telehealth provider. Patient does not want to use her ED for bronchodilator. SARs strep chest x-ray ordered Medications Administered Discontinued Medications Generic Name Dose Route Start Last Admin Trade Name Freq PRN Reason Stop Dose Admin Benzonatate 200 mg 10/29/24 04:18 10/29/24 04:43 Benzonatate 100 Mg Capsule PO 10/29/24 04:19 200 mg ONCE ONE Administration Prednisone 40 mg 10/29/24 04:18 10/29/24 04:43 Prednisone 20 Mg Tablet PO 10/29/24 04:19 40 mg ONCE ONE Administration Medical Decision Making Lab Data MDM Lab Attestation statement: I reviewed the patient's lab results. Labs: Lab Results 10/28/24 Range/Units 20:03 Influenza Type A (PCR) POSITIVE A (Negative) Influenza Type B (PCR) NEGATIVE (Negative) RSV RNA Qual (PCR) NEGATIVE (Negative) SARS-CoV-2 RNA (RT-PCR) NEGATIVE (Negative) S. pyogenes GrpA LISET Negative (Negative) Radiology Impression Discussion of test interpretation with radiology: I have reviewed the radiologist's reading. Radiologist Impression: NAD Discharge Plan Discharge Clinical Impression: Influenza Patient Disposition: Home, Self-Care Instructions: Influenza (ED) Additional Instructions: Use your nebulizing treatment every 6 hours as needed You have influenza A along with of asthma Take prednisone as prescribed and cough drops as the Prescriptions: New benzonatate 200 mg capsule 200 mg PO TID PRN (Reason: cough) Qty: 30 0RF prednisone 20 mg tablet 40 mg PO DAILY Qty: 10 0RF No Action tiotropium bromide 18 mcg capsule, w/inhalation device 1 cap inhalation DAILY budesonide-formoterol 160-4.5 mcg/actuation HFA aerosol inhaler 2 puff INHALATION BID aspirin 81 mg Tablet,Delayed Release (Dr/Ec) 81 mg PO DAILY albuterol sulfate 90 mcg/actuation HFA aerosol inhaler 2 puff INHALATION QID PRN (Reason: wheezing) Centrum Silver Women 8 mg iron-400 mcg-50 mcg Tablet 1 tab PO DAILY fluticasone propionate [Flonase Allergy Relief] 50 mcg/actuation spray,suspen shirley 1 spray intranasal DAILY PRN (Reason: Nasal Congestion) Rx Instructions: administer into each nostril cholecalciferol (vitamin D3) [Vitamin D3] 25 mcg (1,000 unit) Tablet 25 mcg PO DAILY oxycodone 5 mg Tablet 2.5 mg PO Q4H PRN (Reason: pain, severe) Qty: 10 0RF Rx Instructions: Partial Fill upon patient request. amlodipine 10 mg tablet 10 mg PO DAILY losartan 100 mg tablet 100 mg PO DAILY atorvastatin 10 mg tablet 5 mg PO DAILY famotidine 20 mg tablet 20 mg PO BID levothyroxine 50 mcg capsule 50 mcg PO DAILY@0600 magnesium 250 mg tablet 500 mg PO DAILY zinc acetate 50 mg (zinc) capsule 50 mg PO DAILY lorazepam 0.5 mg tablet 0.5 mg PO DAILY PRN (Reason: Anxiety) valacyclovir 500 mg tablet 500 mg PO DAILY PRN (Reason: Flare up) hydrochlorothiazide 12.5 mg capsule 12.5 mg PO DAILY Interventions: ED Discharge Assessment Last Done: 10/29/24 05:25 Discharge Date/Time: 10/29/24 05:26 Print Language: Senegalese
[2024-10-28 20:17] LABS: IDNOW Serial# 58CA691E; Strep A Nucleic Acid Negative (Negative)
[2024-10-28 20:50] LABS: Influenza A PCR POSITIVE (Negative); Influenza B PCR NEGATIVE (Negative); Resp Syncy Virus RNA Qual PCR NEGATIVE (Negative); SARS COV2 PCR INHOUSE NEGATIVE (Negative)
[2024-10-28 23:36] VITALS: BP 105/71; PULSE 78; RESP 17; TEMP 36.4; O2SAT 95
[2024-10-29] MEDS: predniSONE 20 MG TABLET 40 MG PO (04:43)
[2024-10-29] MEDS: Benzonatate 100 MG CAPSULE 200 MG PO (04:43)
[2024-10-29 05:25] VITALS: BP 108/64; PULSE 84; RESP 24; TEMP 36.6; O2SAT 95
== END 2024-10-29 05:26 | disposition home or self-care (01) ==
PROVIDERS: Physician Assistant; Emergency Provider Internal Medicine; PCP Internal Medicine
DX: J10.1 Influenza due to other identified influenza virus with other respiratory manifestations (principal); R05.9 Cough, unspecified; J34.89 Other specified disorders of nose and nasal sinuses; M79.10 Myalgia, unspecified site; R50.9 Fever, unspecified; Z79.899 Other long term (current) drug therapy; Z03.818 Encounter for observation for suspected exposure to other biological agents ruled out
CPT/HCPCS: 0241U; 71045; 87651; 99282; 99283

== ENCOUNTER → 2024-10-28 19:35 | Outpatient (BNV) | payer MEDICARE, BC, SELFPAY | PROVIDERS: Visit Provider Radiology Diagnostic Radiology | DX: J18.9 Pneumonia, unspecified organism (principal) | CPT/HCPCS: 71045 ==